=== PATIENT | male | born 1935 | race Caucasian/White ===

== ENCOUNTER 2019-05-31 10:38 | Emergency (ER) | payer OTHER, BC ==
[2019-05-31] MEDS ORDERED: MORPHINE 4 MG/ML SYR ONE (11:02)
[2019-05-31] MEDS ORDERED: ONDANSETRON 4 MG/2 ML VIAL ONE (11:02)
--- NOTE | 2019-05-31 11:06 | RAD REPORT ---
EXAM DESCRIPTION: RAD - Chest Single View - 05/31/2019 11:00 am CLINICAL HISTORY: CHEST PAIN Chest pain. COMPARISON: CHEST SINGLE VIEW dated 10/29/2010; CHEST PA AND LAT 2 VIEW dated 11/27/2009 FINDINGS: Portable technique limits examination quality. The lungs are mildly emphysematous but grossly clear. The heart is normal in size. No displaced fract ures. IMPRESSION: Mild COPD.
[2019-05-31 11:44] LABS: Protime INR 1.05
[2019-05-31 11:45] LABS: Absolute Lymphocytes (CBC) 1.6 K/uL (0.7-4.9); Basophils % 2.4 % (0-1.3); Hematocrit 49.3 % (39.6-49.0); Lymphocytes % 20.8 % (15.3-44.8)
[2019-05-31 12:04] LABS: ALT/SGPT 27 U/L (12-78); AST/SGOT 26 U/L (15-37); Albumin 3.7 g/dL (3.4-5.0); Alkaline Phosphatase 116 U/L (45-117); BUN Blood Urea Nitrogen 21 mg/dL (7-18); Bicarbonate 25 mmol/L (21-32); Bilirubin Direct 0.2 mg/dL (0-0.2); Bilirubin Total 0.5 mg/dL (0.2-1.0); Glucose Level 115 mg/dL (74-106); NT PRO-BNP 73 pg/mL (<450); Potassium 4.1 mmol/L (3.5-5.1); Protein, Total 7.5 g/dL (6.4-8.2); Sodium Level 141 mmol/L (136-145); Troponin (Emerg Dept Use Only) < 0.02 ng/mL (0.0-0.045)
--- NOTE | 2019-05-31 13:29 | ER ---
Nurse's Notes [facility] Name: Leanna Judge Age: 83 yrs Sex: Male : 1935 Arrival Date: 05/31/2019 Time: 10:40 Bed 6 Private MD: Evangelista Graham Diagnosis: Atrioventricular block, second degree;Unstable angina Presentation: 05/31 10:42 Presenting complaint: Patient states: pain to right scapular area that began 4-5 days aa5 ago. Pt reports mild SOB. Denies cough. Pt states "the pain also comes from my abdomen up to the right side of my chest and to the right side of my back (scapular area)". 10:42 Transition of care: patient was not received from another setting of care. Onset of aa5 symptoms was May 2019. Risk Assessment: Do you want to hurt yourself or someone else? Patient reports no desire to harm self or others. Care prior to arrival: None. 10:42 Acuity: GRACIE 2 aa5 10:42 Method Of Arrival: Wheelchair aa5 11:20 Initial Sepsis Screen: Does the patient meet any 2 criteria? No. Patient's initial mg2 sepsis screen is negative. Does the patient have a suspected source of infection? No. Patient's initial sepsis screen is negative. Historical: - Allergies: 11:04 No Known Allergies; hb - Home Meds: 10:50 clopidogrel 75 mg oral tab once daily [Active]; simvastatin 40 mg Oral tab 1 tab once iw daily [Active]; valsartan 160 mg oral tab 1 tab once daily [Active]; gabapentin 100 mg oral cap 3 times per day [Active]; allopurinol 100 mg Oral tab 1 tab once daily [Active]; aspirin 325 mg Oral tab 1 tab once daily [Active]; nitroglycerin 0.4 mg SL subl 1 tab every 5 minutes [Active]; - PMHx: 11:04 Hyperlipidemia; Gout; hb - Immunization history:: Flu vaccine status is unknown. - Ebola Screening: : No symptoms or risks identified at this time. - Social history:: Smoking status: unknown. Screenin:20 Abuse screen: Denies threats or abuse. Denies injuries from another. Nutritional mg2 screening: No deficits noted. Tuberculosis screening: No symptoms or risk factors identified. Fall Risk IV access (20 points). Assessment: 11:17 General: Appears in no apparent distress. comfortable, Behavior is calm, cooperative. mg2 Pain: Complains of pain in abdomen Pain radiates to chest Pain currently is 6 out of 10 on a pain scale. Quality of pain is described as aching, Pain began 2-3 days ago. Is intermittent. Neuro: Level of Consciousness is awake, alert, Oriented to person, place, time, situation. Cardiovascular: Capillary refill < 3 seconds Patient's skin is warm and dry. Respiratory: Airway is patent Respiratory effort is even, unlabored, Respiratory pattern is regular, symmetrical. GI: Abdomen is flat, Reports lower abdominal pain. : No signs and/or symptoms were reported regarding the genitourinary system. EENT: No signs and/or symptoms were reported regarding the EENT system. Derm: Skin is intact, is healthy with good turgor, Skin is pink, warm \\T\\ dry. normal. 12:15 Reassessment: Patient appears in no apparent distress at this time. Patient and/or hb family updated on plan of care and expected duration. Pain level reassessed. Patient is alert, oriented x 3, equal unlabored respirations, skin warm/dry/pink. 13:30 Reassessment: Patient appears in no apparent distress at this time. Patient and/or mg2 family updated on plan of care and expected duration. Pain level reassessed. Patient is alert, oriented x 3, equal unlabored respirations, skin warm/dry/pink. 14:30 Reassessment: Patient appears in no apparent distress at this time. Patient and/or hb family updated on plan of care and expected duration. Pain level reassessed. Patient is alert, oriented x 3, equal unlabored respirations, skin warm/dry/pink. 14:58 Reassessment: Attempted to call report tro Be, receiving nurse unavailable at this time. 15:30 Reassessment: Patient appears in no apparent distress at this time. Patient and/or hb family updated on plan of care and expected duration. Pain level reassessed. Patient is alert, oriented x 3, equal unlabored respirations, skin warm/dry/pink. Patient denies pain at this time. 15:32 Reassessment: Report called to Tosha GOLD at [facility]. Vital Signs: 10:45 Pulse 40; Resp 18 S; Pulse Ox 98% on R/A; aa5 11:07 BP 150 / 58; Temp 97.6(TE); Weight 102.51 kg; Height 5 ft. 8 in. (172.72 cm); mg2 11:58 BP 149 / 55; Pulse 41; Resp 18; Pulse Ox 97% on 3 lpm NC; mg2 13:00 BP 152 / 53; Pulse 46; Resp 18; Pulse Ox 96% on 3 lpm NC; mg2 14:30 BP 140 / 61; Pulse 39; Resp 16; Pulse Ox 100% on R/A; Pain 0/10; hb 15:00 BP 145 / 63; Pulse 54; Resp 15; Pulse Ox 100% on R/A; hb 11:07 Body Mass Index 34.36 (102.51 kg, 172.72 cm) mg2 ED Course: 10:40 Patient arrived in ED. ag5 10:41 Supa Graham MD is Private Physician. ag5 10:41 Evangelista Graham MD is Private Physician. ag5 10:42 Arm band placed on Patient placed in an exam room, on a stretcher. aa5 10:42 Patient has correct armband on for positive identification. Placed in gown. Bed in low aa5 position. Call light in reach. Side rails up X2. 10:43 Brian Bagley MD is Attending Physician. tw4 10:45 conveyor monitor on. Pulse ox on. NIBP on. aa5 10:49 EKG done, by ED staff, reviewed by Brian Bagley MD. aa5 10:51 Triage completed. aa5 11:03 XRAY Chest (1 view) In Process Unspecified. EDMS 11:11 XRAY Chest (1 view) In Process Unspecified. EDMS 11:20 No provider procedures requiring assistance completed. Inserted saline lock: 20 gauge mg2 in left forearm, using aseptic technique. Blood collected. 11:38 Lisa Cm, ASIF is Primary Nurse. hb 13:07 attempted transfer to [facility]. bd Administered Medications: 11:03 Drug: morphine 4 mg Route: IVP; Site: left forearm; hb 11:57 Follow up: Response: No adverse reaction mg2 11:03 Drug: Zofran 4 mg Route: IVP; Site: left forearm; hb 11:57 Follow up: Response: No adverse reaction mg2 Outcome: 13:27 ER care complete, transfer ordered by . tw4 16:07 Patient left the ED. Signatures: Dispatcher [employer] EDMS Jacki Rosa Irene, RN RN iw Ivana Thomas RN RN aa5 Lisa Cm RN RN Brian Bagley MD MD tw4 Foster Esteves RN RN [facility] Dennis Cevallos ag5 Corrections: (The following items were deleted from the chart) 10:52 10:45 Resp 18bpm; Spontaneous; Pulse Ox 98% RA; aa5 aa5
--- NOTE | 2019-05-31 13:30 | EDPHYS ---
Physician Documentation [facility] Name: Leanna Judge Age: 83 yrs Sex: Male : 1935 Arrival Date: 05/31/2019 Time: 10:40 Bed 6 Private MD: Evangelista Graham ED Physician Brian Bagley HPI: 05/31 11:45 This 83 yrs old Male presents to ER via Wheelchair with complaints of Cardiac tw4 Problem, chest pain. 11:45 The patient or guardian reports chest pain that is located primarily in the anterior tw4 chest wall, right. Onset: 2 day(s) ago. The pain does not radiate. Associated signs and symptoms: Pertinent positives: shortness of breath. The chest pain is described as a heaviness. Duration: The patient or guardian reports a single episode. Severity of pain: At its worst the pain was moderate in the emergency department the pain is unchanged. Historical: - Allergies: 11:04 No Known Allergies; hb - Home Meds: 10:50 clopidogrel 75 mg oral tab once daily [Active]; simvastatin 40 mg Oral tab 1 tab once iw daily [Active]; valsartan 160 mg oral tab 1 tab once daily [Active]; gabapentin 100 mg oral cap 3 times per day [Active]; allopurinol 100 mg Oral tab 1 tab once daily [Active]; aspirin 325 mg Oral tab 1 tab once daily [Active]; nitroglycerin 0.4 mg SL subl 1 tab every 5 minutes [Active]; - PMHx: 11:04 Hyperlipidemia; Gout; hb - Immunization history:: Flu vaccine status is unknown. - Ebola Screening: : No symptoms or risks identified at this time. - Social history:: Smoking status: unknown. ROS: 11:45 Constitutional: Negative for fever, chills, and weight loss. tw4 11:45 Respiratory: Negative for shortness of breath, cough, wheezing, and pleuritic chest pain, Back: Negative for injury and pain, MS/Extremity: Negative for injury and deformity, Skin: Negative for injury, rash, and discoloration, Neuro: Negative for headache, weakness, numbness, tingling, and seizure. 11:45 Cardiovascular: Positive for chest pain, Negative for edema, orthopnea, palpitations. Exam: 11:45 Constitutional: This is a well developed, well nourished patient who is awake, alert, tw4 and in no acute distress. Head/Face: Normocephalic, atraumatic. Chest/axilla: Normal chest wall appearance and motion. Nontender with no deformity. No lesions are appreciated. Cardiovascular: Regular rate and rhythm with a normal S1 and S2. No gallops, murmurs, or rubs. Normal PMI, no JVD. No pulse deficits. Respiratory: Lungs have equal breath sounds bilaterally, clear to auscultation and percussion. No rales, rhonchi or wheezes noted. No increased work of breathing, no retractions or nasal flaring. Abdomen/GI: Soft, non-tender, with normal bowel sounds. No distension or tympany. No guarding or rebound. No evidence of tenderness throughout. Back: No spinal tenderness. No costovertebral tenderness. Full range of motion. MS/ Extremity: Pulses equal, no cyanosis. Neurovascular intact. Full, normal range of motion. Neuro: Awake and alert, GCS 15, oriented to person, place, time, and situation. Cranial nerves II-XII grossly intact. Motor strength 5/5 in all extremities. Sensory grossly intact. Cerebellar exam normal. Normal gait. Vital Signs: 10:45 Pulse 40; Resp 18 S; Pulse Ox 98% on R/A; aa5 11:07 BP 150 / 58; Temp 97.6(TE); Weight 102.51 kg; Height 5 ft. 8 in. (172.72 cm); mg2 11:58 BP 149 / 55; Pulse 41; Resp 18; Pulse Ox 97% on 3 lpm NC; mg2 13:00 BP 152 / 53; Pulse 46; Resp 18; Pulse Ox 96% on 3 lpm NC; mg2 14:30 BP 140 / 61; Pulse 39; Resp 16; Pulse Ox 100% on R/A; Pain 0/10; hb 15:00 BP 145 / 63; Pulse 54; Resp 15; Pulse Ox 100% on R/A; hb 11:07 Body Mass Index 34.36 (102.51 kg, 172.72 cm) mg2 MDM: 10:53 Patient medically screened. tw4 21:45 Differential diagnosis: abnormal EKG, acute myocardial infarction, acute pericarditis, tw4 coronary artery disease pulmonary embolus, stable angina, unstable angina. HEART Score: History: Highly Suspicious (2), ECG: Non specific repolarization disturbance / LBTB / PM (1), Age: > or = 65 years (2), Risk Factors: > or = 3 Risk factors for atherosclerotic disease (2), Troponin: < or = 1 x Normal Limit (0), Total Score = 7. Data reviewed: vital signs, nurses notes. Data interpreted: adolescent specialist: rate is 45 beats/min, rhythm is sinus bradycardia, Pulse oximetry: Interpretation: normal. Test interpretation: by ED physician or midlevel provider: ECG, plain radiologic studies. Counseling: I had a detailed discussion with the patient and/or guardian regarding: the historical points, exam findings, and any diagnostic results supporting the discharge/admit diagnosis, lab results, radiology results. Physician consultation: Eric Hernadez MD after a discussion of the case, a recommendation for transfer for higher level of care is made, D/W Dr Mott from [facility] who agrees to take patient for higher level of care. 05/31 10:44 Order name: Basic Metabolic Panel 05/31 10:44 Order name: CBC with Diff 05/31 10:44 Order name: LFT's 05/31 10:44 Order name: Magnesium 05/31 10:44 Order name: NT PRO-BNP 05/31 10:44 Order name: PT-INR 05/31 10:44 Order name: Troponin (emerg Dept Use Only) 05/31 10:44 Order name: XRAY Chest (1 view) 05/31 10:44 Order name: EKG; Complete Time: 10:46 05/31 10:44 Order name: Cardiac monitoring; Complete Time: 11:06 05/31 10:44 Order name: EKG - Nurse/Tech; Complete Time: 11:06 05/31 10:44 Order name: IV Saline Lock; Complete Time: 11:06 05/31 10:44 Order name: Labs collected and sent; Complete Time: 11:06 05/31 10:44 Order name: O2 Per Protocol; Complete Time: 11:06 05/31 10:44 Order name: O2 Sat Monitoring; Complete Time: 11:06 EC:45 Rate is 37 beats/min. Rhythm is regular. QRS [place] is Normal. ND interval is prolonged. tw4 QRS interval is normal. QT interval is normal. No Q waves. T waves are Normal. No ST changes noted. Clinical impression: Sinus bradycardia. Interpreted by me. Reviewed by me. Administered Medications: 11:03 Drug: morphine 4 mg Route: IVP; Site: left forearm; hb 11:57 Follow up: Response: No adverse reaction mg2 11:03 Drug: Zofran 4 mg Route: IVP; Site: left forearm; hb 11:57 Follow up: Response: No adverse reaction mg2 Disposition: 05/31/19 13:27 Transfer ordered to [facility]. Diagnosis are Atrioventricular block, second degree, Unstable angina. - Reason for transfer: Higher level of care. - Accepting physician is Dr Parul Vu. - Condition is Stable. - Problem is an ongoing problem. - Symptoms are unchanged. Signatures: Dispatcher [employer] EDEcho Leon, ASIF RN Ivana Thomas RN RN aa5 Lisa Cm RN RN Brian Bagley MD MD tw4 Foster Esteves RN RN mg2 Corrections: (The following items were deleted from the chart) 16:07 13:27 05/31/2019 13:27 Transfer ordered to [facility]. Diagnosis is hb Atrioventricular block, second degree; Unstable angina. Reason for transfer: Higher level of care. Accepting physician is Dr Parul Vu. Condition is Stable. Problem is an ongoing problem. Symptoms are unchanged. tw4
[2019-05-31 16:19] VITALS: TEMP 97.6
[2019-05-31 16:24] VITALS: O2SAT 100
[2019-05-31 16:25] VITALS: BP 145/63
--- NOTE | 2019-05-31 16:40 | EKG ---
Test Date: 2019-05-31 Test Time: 10:50:52 Power Plant Manager: AIDEN MEASUREMENT RESULTS: Intervals: Rate: 37 LA: 236 QRSD: 146 QT: 496 QTc: 389 Cammal: P: 53 LA: 236 QRS: -20 T: 47 INTERPRETIVE STATEMENTS: Marked sinus bradycardia with 1st degree AV block Right bundle branch block Abnormal ECG Compared to ECG 10/31/2010 05:51:58 First degree AV block now present Right bundle-branch block now present Sinus rhythm no longer present T-wave abnormality no longer present Electronically Signed On 05-31-19 16:39:54 COMMUNITY HEALTH COUNSELOR by Thai Breen
== END 2019-05-31 16:07 | disposition short-term general hospital (02) ==
LOC: ER 10:38
DX: I44.1 Atrioventricular block, second degree (principal); I20.0 Unstable angina; E78.5 Hyperlipidemia, unspecified
CPT/HCPCS: 93005; 85025; 80048; 36415; 83735; 85610; 80076; 84484; 83880; 71045; 96375; 96374; 99284; J2405

== ENCOUNTER 2020-01-18 06:15 | Day surgery (SDC) | payer OTHER, BC ==
[2020-01-13 12:03] LABS: Absolute Lymphocytes (CBC) 2.1 K/uL (0.7-4.9); Basophils % 0.3 % (0-1.3); Hematocrit 44.1 % (39.6-49.0); Lymphocytes % 32.4 % (15.3-44.8); MPV 8.8 fL (7.6-11.3); RBC Red Blood Cell Count 4.55 M/uL (4.33-5.43)
--- NOTE | 2020-01-13 12:42 | RAD REPORT ---
EXAM DESCRIPTION: Gino Lange And Jeyson (2 Views)01/13/2020 12:31 pm CLINICAL HISTORY: Hypertension/preop COMPARISON: May 2019 FINDINGS: The lungs are hyperaerated. The lungs appear clear of acute infiltrate. The heart is normal size. Pacemaker leads are place IMPRESSION: No acute abnormalities displayed
--- OUTSIDE RECORDS SUMMARY | 2020-01-18 06:21 | XMS REPORT | Clinical Summary ---
:1935 Author Organization [facility] Address [address] [place] [address] Care Team Providers Name Role Phone Asked, No Pcp Primary Care Provider Unavailable Allergies No Known Allergies Medications Medication Sig Dispensed Refills Start Date End Date Status simvastatin (ZOCOR) Take 40 mg 0 Active 40 MG tablet by mouth nightly. gabapentin Take 100 mg 0 Active (NEURONTIN) 100 mg by mouth 3 capsule (three) times a day. valsartan (DIOVAN) Take 160 mg 0 Active 160 MG tablet by mouth daily. allopurinol Take 100 mg 0 Active (ZYLOPRIM) 100 MG by mouth tablet daily. nitroglycerin Place 0.4 mg 0 Act miracle (NITROSTAT) 0.4 MG under the SL tablet tongue every 5 (five) minutes as needed for chest pain. clopidogrel Take 75 mg 0 Discont inued (PLAVIX) 75 mg by mouth 0 (Stop Taking at tablet daily. Discharge) aspirin 325 MG Take 325 mg 0 Dis continued tablet by mouth 0 (Stop Taki ng at daily. Discharge) aspirin (ECOTRIN) Take 1 30 tablet 0 06/02/2019 E xpired 81 MG enteric tablet (81 0 coated tablet mg total) by mouth daily for 30 days. Active Problems Problem Noted Date Cardiac arrhythmia 05/31/2019 Encounters Date Type Specialty Care Team Description 06/01/2019 Anesthesia Event Procedural Eliz Spence, Cardiology Jerry Mchugh MD 06/01/2019 Surgery Procedural Lilia Burton Insertion p acemaker Cardiology pulse generator [[id number] (CPT)] 05/31/2019 - Hospital Encounter Cardiology Tano Martin, 06/02/2019 05/31/2019 Intake Access after 01/17/2019 Family History Medical History Relation Name Comments Cancer Brother Cancer Brother Heart disease Mother Brain cancer Sister Relation Name Status Comments Brother Brother Mother Sister Social History Tobacco Use Types Packs/Day Years Used Date Never Smoker Alcohol Use Drinks/Week oz/Week Comments Never Alcohol Habits Answer Date Recorded How often do you have a drink containing alcohol? Never 05/31/2019 How many drinks containing alcohol do you have on a typical Not asked day when you are drinking? How often do you have six or more drinks on one occasion? No t asked Sex Assigned at Date Recorded Not on file Job Start Date Occupation Industry Not on file Not on file Not on file Travel History Travel Start Travel End No recent travel history available. Last Filed Vital Signs Vital Sign Reading Time Taken Comments Blood Pressure 130/71 06/02/2019 9:00 AM PLASTER MACHINE OPERATOR Pulse 66 06/02/2019 9:00 AM PLASTER MACHINE OPERATOR Temperature 35.9 C (96.7 F) 06/02/2019 9:00 AM PLASTER MACHINE OPERATOR Respiratory Rate 20 06/02/2019 9:00 AM PLASTER MACHINE OPERATOR Oxygen Saturation 96% 06/02/2019 9:00 AM PLASTER MACHINE OPERATOR Inhaled Oxygen Concentration - - Weight 100 kg (221 lb) 06/02/2019 4:58 AM PLASTER MACHINE OPERATOR Height 172.7 cm (5' 8") 05/31/2019 5:26 PM PLASTER MACHINE OPERATOR Body Mass Index 33.6 05/31/2019 5:26 PM PLASTER MACHINE OPERATOR Plan of Treatment Health Maintenance Due Date Last Done Comments SHINGLES VACCINES (#1) 1983 65+ PNEUMOCOCCAL VACCINE (1 of 2 - PCV13) 1998 INFLUENZA VACCINE 02/23/2020 Implants Implanted Type Area Retail Selling Floor Leader Device Shelf Model / Identifier Expiration Serial / Date Lot Accolade Mri Pacemaker - [id number] Cardiac Pacemaker N/A: B OSTON 03/24/2021 [id number] / Implanted: 06/01/2019 at [facility] (Quantity not on file) Gen erators N/A SCIENTIFIC- CRM [id number] / [id number] IngUPR-Online Mri Pacing Lead 52cm - [id number] Cardiac Pacing N/A: WALKER 04/29/2021 [id number] / Implanted: 06/01/2019 at [facility] (Quantity not on file) Rocio ds or N/A SCIENTIFIC- CRM [id number] / Electrodes or [id number] Accessories IngevZondle Mri Pacing Lead Is-1 Bipolar 59cm - [id number] Cardiac Pacing N/A: BOSTON 05/01/2021 [id number] / Implanted: 06/01/2019 at [facility] (Quantity not on file) Rocio ds or N/A SCIENTIFIC- CRM [id number] / Electrodes or [id number] Accessories Envlp Impl Crdvrtr Dfb Antbctrl Fully Resorb Lg Aigiss rx R - [id number] Cardiovascular N/A: MEDTRONIC [id number] / Implanted: 06/01/2019 at [facility] (Quantity not on file) Implants N/A / Procedures Procedure Name Priority Date/Time Associated Comments Diagnosis MANUAL DIFFERENTIAL Routine 06/02/2019 2:50 Resu lts for this AM PLASTER MACHINE OPERATOR procedure are i n the results section. ESTIMATED GFR Routine 06/02/2019 2:50 Results fo r this AM PLASTER MACHINE OPERATOR procedure are i n the results section. BASIC METABOLIC PANEL Routine 06/02/2019 2:50 Re sults for this AM PLASTER MACHINE OPERATOR procedure are i n the results section. CBC WITH PLATELET AND Routine 06/02/2019 2:50 Re sults for this DIFFERENTIAL AM PLASTER MACHINE OPERATOR procedure are i n the results section. XR CHEST 1 VW PORTABLE Routine 06/01/2019 7:12 R esults for this PM PLASTER MACHINE OPERATOR procedure are i n the results section. ECG PRE/POST OP Routine 06/01/2019 6:28 Results for this PM PLASTER MACHINE OPERATOR procedure are i n the results section. CV LEFT HEART CATH LV Routine 06/01/2019 5:30 Re sults for this GRAM WITH CORS PM PLASTER MACHINE OPERATOR procedure are in the results section. EP INSERTION PACEMAKER Routine 06/01/2019 5:30 R esults for this PULSE GENERATOR WITH PM PLASTER MACHINE OPERATOR procedu re are in EXISTING LEADS the results section. TYPE AND SCREEN STAT 06/01/2019 12:19 Results for this PM PLASTER MACHINE OPERATOR procedure are i n the results section. ESTIMATED GFR Routine 05/31/2019 9:30 Results fo r this PM PLASTER MACHINE OPERATOR procedure are i n the results section. THYROID STIMULATING Routine 05/31/2019 9:30 Resu lts for this HORMONE PM PLASTER MACHINE OPERATOR procedure are i n the results section. PHOSPHORUS LEVEL Routine 05/31/2019 9:30 Results for this PM PLASTER MACHINE OPERATOR procedure are i n the results section. MAGNESIUM LEVEL Routine 05/31/2019 9:30 Results for this PM PLASTER MACHINE OPERATOR procedure are i n the results section. COMPREHENSIVE METABOLIC Routine 05/31/2019 9:30 Results for this PANEL PM PLASTER MACHINE OPERATOR procedure are i n the results section. PARTIAL THROMBOPLASTIN Routine 05/31/2019 9:30 R esults for this TIME (PTT) PM PLASTER MACHINE OPERATOR procedure are i n the results section. PROTHROMBIN TIME WITH Routine 05/31/2019 9:30 Re sults for this INR PM PLASTER MACHINE OPERATOR procedure are i n the results section. TROPONIN Routine 05/31/2019 9:30 Results for this PM PLASTER MACHINE OPERATOR procedure are i n the results section. HC COMPLETE BLD COUNT Routine 05/31/2019 9:30 Re sults for this W/AUTO DIFF PM PLASTER MACHINE OPERATOR procedure are i n the results section. XR CHEST 1 VW PORTABLE Routine 05/31/2019 8:44 R esults for this PM PLASTER MACHINE OPERATOR procedure are i n the results section. ECG 12-LEAD STAT 05/31/2019 6:59 Results for this PM PLASTER MACHINE OPERATOR procedure are i n the results section. after 01/17/2019 Results Estimated GFR (06/02/2019 2:50 AM PLASTER MACHINE OPERATOR)Only the most recent of2 resultswithin the time period is included. Estimated GFR 46 (A) mL/min/1.73 [facility] Comment: m2 HOSPITAL Catergory Units Interpretation G1 >=90 Normal or high G2 60-89 Mildly decreased G3a 45-59 Mildly to moderately decreas ed G3b 30-44 Moderately to severely decre ased G4 15-29 Severely decreased G5 <15 Kidney failure The eGFR was calculated using the Chronic Kidney Disea se Epidemiology Collaboration (CKD-EPI) equation. Interpretation is based on recommendations of the National Kidney Foundation-Kidney Disease Outcomes Rosales lity Initiative (NKF-KDOQI) published in 2014. Specimen Plasma specimen Performing Organization Address City/State/Zipcode Phone Number [facility] DEPARTMENT OF PATHOLOGY AND [address] [place] [phone] GENOMIC MEDICINE [facility] [address] [place] [phone] Manual differential (06/02/2019 2:50 AM PLASTER MACHINE OPERATOR) Manual differential PERFORMED [facility] Neutrophils 68.0 39.0 - 69.0 % [facility] Lymphocytes 22.0 (L) 25.0 - 45.0 % [facility] Monocytes 8.0 0.0 - 10.0 % [facility] Eosinophils 2.0 0.0 - 5.0 % [facility] Basophils 0.0 0.0 - 1.0 % [facility] Metamyelocytes 0 % [facility] Promyelocytes 0 % [facility] Platelet slide review Anival adequate [facility] Specimen Performing Organization Address City/[facility] Phone Number [facility] DEPARTMENT OF PATHOLOGY AND [address] [place], [place] [address] [address] CBC with platelet and differential (06/02/2019 2:50 AM PLASTER MACHINE OPERATOR)Only the most recent of2 resultswithin the time period is included. Pathologist Sig nature WBC 10.19 4.50 - 11.00 k/uL [facility] RBC 4.88 4.40 - 6.00 m/uL [facility] HGB 15.5 14.0 - 18.0 g/dL [facility] HCT 47.3 41.0 - 51.0 % [facility] MCV 96.9 82.0 - 100.0 fL [facility] MCH 31.8 27.0 - 34.0 pg [facility] MCHC 32.8 31.0 - 37.0 g/dL [facility] RDW - SD 47.7 37.0 - 55.0 fL [facility] MPV 10.7 8.8 - 13.2 fL [facility] Platelet count 208 150 - 400 k/uL [facility] Nucleated RBC 0.00 /100 WBC [facility] Neutrophils 68.0 39.0 - 69.0 % [facility] Lymphocytes 22.0 (L) 25.0 - 45.0 % [facility] Monocytes 8.0 0.0 - 10.0 % [facility] Eosinophils 2.0 0.0 - 5.0 % [facility] Basophils 0.0 0.0 - 1.0 % [facility] Specimen Blood Performing Organization Address City/State/Zipcode Phone Number [facility] DEPARTMENT OF PATHOLOGY AND [address] [place], [place] [address] [facility] [address] [place] [address] Basic metabolic panel (06/02/2019 2:50 AM PLASTER MACHINE OPERATOR) Pathologist Sig nature Sodium 139 135 - 148 mEq/L [facility] Potassium 3.9 3.5 - 5.0 mEq/L [facility] Chloride 102 98 - 112 mEq/L [facility] CO2 24 24 - 31 mEq/L [facility] Anion gap 13@ANIO 7 - 15 mEq/L [facility] BUN 18 8 - 23 mg/dL [facility] Creatinine 1.37 (H) 0.70 - 1.20 mg/dL [facility] Glucose 126 (H) 65 - 99 mg/dL [facility] Calcium 8.9 8.8 - 10.2 mg/dL [facility] Specimen Plasma specimen Performing Organization Address [facility] Hospital[facility] Phone Number [facility] DEPARTMENT OF PATHOLOGY AND [address] [place], [place] [address] GENOMIC MEDICINE [facility] [address] [place] [address] XR Chest 1 Vw Portable (06/01/2019 7:12 PM PLASTER MACHINE OPERATOR)Only the most recent of2 results within the time period is included. Specimen Narrative Performed At EXAMINATION: [facility] pneumothorax COMPARISON: 05/31/2019 IMPRESSION: A frontal radiograph of the chest is reviewed. The car diomediastinal silhouette is unchanged. There has been interval place ment of a left subclavian dual-lead pacemaking device. There is no pn eumothorax. Atelectasis is present in the lung bases . There is no pleural effusion. [facility]-[id number] Procedure Note Interface, Radiology Results Incoming - 06/01/2019 7:46 PM PLASTER MACHINE OPERATOR EXAMINATION: XR CHEST 1 VW PORTABLE CLINICAL HISTORY: pneumothorax COMPARISON: 05/31/2019 IMPRESSION: A frontal radiograph of the chest is rev iewed. The cardiomediastinal silhouette is unchanged. There has been interval placement of a left subclavian dual-lead pacemaking device. There is no pneumothorax. Atelectasis is present in the lung bases . There is no pleural effusion. [facility]-[id number] Performing Organization Address City/[facility] Hospital[facility] Phone Number [facility] [address] [place] [address] ECG Pre/Post Op-Tomorrow (06/01/2019 6:28 PM PLASTER MACHINE OPERATOR) Pathologist Sig nature Ventricular rate 61 [facility] Atrial rate 61 [facility] ND interval 178 [facility] QRSD interval 206 [facility] QT interval 550 [facility] QTC interval 553 [facility] P axis 1 29 [facility] QRS axis 1 -56 [facility]USE T wave axis 92 [facility] EKG impression Atrial-sensed ventricular-pa carlota rhythm-Abnormal ECG-In automated comparison with ECG of 31-MAY-2019 18:59,-Electronic ventricular pacemaker has replaced Sinus rhythm-Vent. rate has increased BY 24 BPM H MUSE - Specimen Narrative Performed At This result has an attachment that is no t available. Performing Organization Address [facility]/Zipcode Phone Number [facility] MUSE [address] [place] [address] Electrophysiology procedure (06/01/2019 5:30 PM PLASTER MACHINE OPERATOR) Pathologist Sig [facility] Cath EF Estimated 60 % [facility] Specimen Narrative Performed At This result has an attachment that is no t available. Left main normal. LAD with patent proximal stent. LCX normal. RCA dominant [facility] and normal. LVEF normal. No aortic valve disease. Iliac aortagram showed tortuous but no significant maris nosis. Performing Organization Address [facility] Hospital[facility] Phone Number [facility] [address] [place] [phone], [place] microbiology lab analyst procedure (06/01/2019 5:30 PM PLASTER MACHINE OPERATOR) Specimen Narrative Performed At This result has an attachment that is no t available. Left main normal. LAD with patent proximal stent. LCX normal. RCA dominant [facility] and normal. LVEF normal. No aortic valve disease. Iliac aortagram showed tortuous but no significant maris nosis. Performing Organization Address [facility] Hospital[facility] Phone Number [facility] [address] [place] [address], Type and screen (06/01/2019 12:19 PM PLASTER MACHINE OPERATOR) Pathologist [facility] ABO grouping A [facility] Rh type NEG [facility] Antibody screen (gel) NEG [facility] Specimen Blood Performing Organization Address City/[facility]/Zipcode Phone Number [facility] DEPARTMENT OF PATHOLOGY AND [address] [place] [phone] GENOMIC MED[address]INE [address] [address] Troponin (05/31/2019 9:30 PM PLASTER MACHINE OPERATOR) Troponin 0.008 0.000 - 0.040 [facility] Comment: ng/mL HOSPITAL In patients suspected of having a myocardial infarctio n, along with all other appropriate clinical measures and actions includ ing ECG and other diagnostics as appropriate, measure Ultra TnI at 0 hrs and at 3 hrs. Myocardial infarction VERY LIKELY The 0 hr TnI level is > 0.10 ng/mL Myocardial infarction LIKELY The 0 hr TnI level is > 0.04 ng/mL and 3 hr level is i ncreased or decreased by at least 0.020 ng/mL Myocardial infarction VERY UNLIKELY Both the 0 hr and 3 hr TnI levels <= 0.04 ng/mL(within normal limits) OR 0 hr is > 0.04 ng/mL and 3 hr is increased OR decreased by less than 0.020 ng/mL Specimen Plasma specimen Performing Organization Address City/[facility]/Zipcode Phone Number [facility] DEPARTMENT OF PATHOLOGY AND [address] [place], [place] [address] [address] Partial thromboplastin time, activated (05/31/2019 9:30 PM PLASTER MACHINE OPERATOR) [facility] PTT 28.8 23.0 - 36.0 [facility] Comment: [facility] PTT therapeutic range for unfractionated heparin is 61.0-112.0 seconds which corresponds to Anti-Xa 0.3-0.7 U/ml. Specimen Blood Performing Organization Address City/State/Zipcode Phone Number [facility] DEPARTMENT OF PATHOLOGY AND [address] [place], [place] [address] [address] Prothrombin time with INR (05/31/2019 9:30 PM PLASTER MACHINE OPERATOR) [facility] Prothrombin time 14.2 11.5 - 14.5 [facility] INR 1.1 [facility] Comment: UATSDIN The International Normalized Ratio (INR) is a [facility] monitoring tool for patients who are stable on oral anticoagulant therapy. An INR of 2.0-3.0 is suggested for deep vein thrombosis/pulmonary embolism. Specimen Blood Performing Organization Address [facility] Hospitalcomi Phone Number [facility] DEPARTMENT OF PATHOLOGY AND [address] [place] [address] [place] [phone] Thyroid stimulating hormone (05/31/2019 9:30 PM PLASTER MACHINE OPERATOR) Pathologist Sig nature TSH 4.05 0.27 - 4.20 uIU/mL [facility] ITAL Specimen Plasma specimen Performing Organization Address [facility] Phone Number [facility] DEPARTMENT OF PATHOLOGY AND [address] [place] [address] [place] [address] Phosphorus level (05/31/2019 9:30 PM PLASTER MACHINE OPERATOR) Pathologist Sig [facility] Phosphorus 2.9 2.4 - 4.5 mg/dL [facility] L Specimen Plasma specimen Performing Organization Address [facility] Phone Number [facility] DEPARTMENT OF PATHOLOGY AND [address] [place] [address] [phone] [address] Magnesium level (05/31/2019 9:30 PM PLASTER MACHINE OPERATOR) Pathologist Sig nature Magnesium 2.0 1.6 - 2.4 mg/dL [facility] L Specimen Plasma specimen Performing Organization Address [facility] Phone Number [facility] DEPARTMENT OF PATHOLOGY AND [address] [place] [phone] [place] [phone] Comprehensive metabolic panel (05/31/2019 9:30 PM PLASTER MACHINE OPERATOR) Sodium 142 135 - 148 [facility] mEq/L [facility] Potassium 4.1 3.5 - 5.0 [facility] mEq/L [facility] Chloride 103 98 - 112 mEq/L [facility] CO2 24 24 - 31 mEq/L [facility] Anion gap 15@ANIO 7 - 15 mEq/L [facility] BUN 20 8 - 23 mg/dL [facility] Creatinine 1.38 (H) 0.70 - 1.20 GARCIA UATSDIN mg/dL HOSPITAL Glucose 125 (H) 65 - 99 mg/dL [facility] Calcium 9.7 8.8 - 10.2 [facility] mg/dL [facility] Protein 7.6 6.3 - 8.3 g/dL [facility] Comment: HOSPITAL Otvdjeu3208.6-7.0 g/dL 1 kzgc2057.4-7.6 g/dL 7 months-7gaxc539.1-7.3 g/dL 1-2 jguak941.6-7.5 g/dL >3 smwcu062.0-8.0 g/dL 18-2879921.3-8.3 g/dL Albumin 3.8 3.5 - 5.0 g/dL [facility] A/G ratio 1.0 0.7 - 3.8 [facility] Alkaline phosphatase 116 40 - 129 U/L [facility] AST 32 10 - 50 U/L [facility] ALT 24 5 - 50 U/L [facility] Total bilirubin 0.6 0.0 - 1.2 [facility] mg/dL HOSPITAL Specimen Plasma specimen Performing Organization Address City/State/Zipcode Phone Number [facility] DEPARTMENT OF PATHOLOGY AND [address] [place] [phone] GENOMIC MEDICINE [address] [address] ECG 12 lead (05/31/2019 6:59 PM PLASTER MACHINE OPERATOR) Pathologist Sig nature Ventricular rate 37 [facility] Atrial rate 61 [facility] QRSD interval 142 [facility] QT interval 518 [facility] QTC interval 406 [facility] QRS axis 1 1 [facility] T wave axis 35 [facility] EKG impression Sinus rhythm with 2nd [facility] MUSE degree AV block (Mobitz I)-Right bundle branch block-Abnormal ECG-No previous ECGs available-Electronicall y Signed By Kaden EPPS, Nito Medina ([id number]) on 06/01/2019 8:46:08 AM Specimen Narrative Performed At This result has an attachment that is no t available. Performing Organization Address City/State/Zipcode Phone Number [facility] [address] [place] [address] after 01/17/2019 Insurance Payer Benefit Plan / Subscriber ID Effective Dates Phone Addre ss Type Group MEDICARE MEDICARE PART A xxxxxxxxxxx 1998-Present [facility] [place] AND B BCBS BCBS CHOICE xxxxxxxxx 2007-Present P PO PPO/F[employer]ERAL EMPL PPO Advance Directives For more information, please contact: [phone] Type Date Recorded Patient Wool Supplier Explanati on Advance Directives, Living Will and Medical Power of Machine Tool Dresser Code Status Date Activated Date Inactivated Comments Full Code 05/31/2019 9:04 PM 06/02/2019 4:41 PM Code Status decision reached by: Patient
--- OUTSIDE RECORDS SUMMARY | 2020-01-18 06:22 | XMS REPORT | Continuity of Care Document ---
:1935 Author Organization [facility] t Address [address] [place] [address] Care Team Providers Name Role Phone Asked, Pcp Primary Care Physician Unavailable Andreia EPPS FCee Attending Clinician Brianna Spence MD Attending Clinician Jose A EPPS V. Attending Clinician Josephine EPPS Attending Clinician ANDREIA Admitting Clinician Unavailable Payers Payer Name Policy Policy Number Effective Expiration Source Type Date Date MEDICAREMEDICARE PART xxxxxxxxxxx 1998 Ho liudmila Cowart AND 00:00:00 [facility]05[facility] [place] [place] [facility] 2007 [place] PPO/FEDERAL EMPL 00:00:00 Methodis t PPOxxxxxxxxx2007- [id number] Problems Condition Condition Condition Status Onset Resolution Last Treating Co mments Source Name Details Category Date Date Treatment Clinician Date Cardiac Cardiac Disease Active [place] arrhythmia arrhythmia 05-31 [place] thodi 00:00: st 00 Allergies, Adverse Reactions, Alerts This patient has no known allergies or adverse reactions. Family History Family Member Diagnosis Comments Start Date Stop Date Source Natural brother Cancer [facility] timothy Natural mother Heart disease [place] [facility] Natural sister Brain cancer [facility] Social History Social Habit Start Date Stop Date Quantity Comments Source History [facility] Meth odist Alcohol Std Drinks History [facility] Meth odist Alcohol Binge Sex Assigned At [facility] ethodist Alcohol intake 2019-06-03 2019-06-03 Lifetime [facility] thodist 00:00:00 00:00:00 non-drinker (finding) History SDOH 2019-05-31 2019-05-31 1 [place] [facility] odist Alcohol Frequency 00:00:00 00:00:00 Smoking Status Start Date Stop Date Source Never smoker [place] Methodis t Medications Ordered Filled Start Stop Current Ordering Indication Dosage Frequency Signature Comments Components Source Medication Medication Date Date Medication? Clinician (SIG) Name Name clopidogrel 2019-0 2020- No 75mg QD Take 75 mg [place] (PLAVIX) 75 06-02 by mouth Met hodi mg tablet 12:41: 00:[address] 50 :00 aspirin 325 2020-0 2020- No 325mg QD Take 325 [place] MG tablet 06-02 mg by Methodi 12:41: 00:[address] 50 :00 daily. simvastatin 2020-0 Yes 40mg QD Take 40 mg [place] (ZOCOR) 40 06-02 by mouth Metho di MG tablet 12:41: nightly. st 47 gabapentin 2020-0 Yes 100mg [id number] Take 100 [place] (NEURONTIN) 06-02 [id number] mg by M ethodi 100 mg 12:41: 3D mouth 3 st capsule 47 (three) times a day. valsartan 2020-0 Yes 160mg QD Take 160 Rafael ston (DIOVAN) 1-09 mg by Methodi 160 MG 12:41: mouth st tablet 47 daily. allopurinol 2020-0 Yes 100mg QD Take 100 [place] (ZYLOPRIM) 1-09 mg by Methodi 100 MG 12:41: mouth st tablet 47 daily. nitroglycer 2020-[address] 0.4 [place] in 1-09 mg under Methodi (NITROSTAT) 12:41: the tongue st 0.4 MG SL 47 every 5 tablet (five) minutes as needed for chest pain. aspirin 2020-0 2020- No 81mg QD Take 1 [place] (ECOTRIN) 06-02 tablet (81 Met hodi 81 MG 00:00: 23:59 mg total) st enteric 00 :00 by mouth coated daily for tablet 30 days. Vital Signs Vital Name Observation Time Observation Value Comments Source Systolic blood 2019-06-02 09:00:00 130 mm[Hg] Cabrera n [facility] pressure Diastolic blood 2019-06-02 09:00:00 71 mm[Hg] Izzy on [facility] pressure Heart rate 2019-06-02 09:00:00 66 /min Johnnie rL Body temperature 2019-06-02 09:00:00 35.94 Hannah Tino Lr Respiratory rate 2019-06-02 09:00:00 20 /min Tino Lr Oxygen saturation in 2019-06-02 09:00:00 96 /min Johnnie Lr Arterial blood by Pulse oximetry Body weight 2019-06-02 04:58:10 100.245 kg Johnnie Lr BMI 2019-06-02 04:58:10 33.60 kg/m2 Johnnie Lr Body height 2019-05-31 17:26:17 172.7 cm Johnnie Lr Procedures Procedure Date / Time Performing Clinician Source Performed CBC WITH PLATELET AND 2019-06-02 02:50:00 Natalia Germain DIFFERENTIAL BASIC METABOLIC PANEL 2019-06-02 02:50:00 Natalia Germain ESTIMATED GFR 2019-06-02 02:50:00 Natalia Germain MANUAL DIFFERENTIAL 2019-06-02 02:50:00 Natalia Germain XR CHEST 1 VW PORTABLE 2019-06-01 19:12:51 Parul Vu on [facility] ECG PRE/POST OP 2019-06-01 18:28:08 Parul Vu EP INSERTION PACEMAKER 2019-06-01 17:30:39 Parul Vu PULSE GENERATOR WITH EXISTING LEADS CV LEFT HEART CATH LV GRAM 2019-06-01 17:30:39 Parul Vu WITH CORS TYPE AND SCREEN 2019-06-01 12:19:00 Parul Vu HC COMPLETE BLD COUNT 2019-05-31 21:30:00 Mary Ann Schuster W/AUTO DIFF TROPONIN 2019-05-31 21:30:00 Mary Ann Schuster PROTHROMBIN TIME WITH INR 2019-05-31 21:30:00 Gina Martin PARTIAL THROMBOPLASTIN 2019-05-31 21:30:00 Gina Martin [facility] TIME (PTT) COMPREHENSIVE METABOLIC 2019-05-31 21:30:00 Gina Martin [facility] PANEL MAGNESIUM LEVEL 2019-05-31 21:30:00 Gina Martin Met chema PHOSPHORUS LEVEL 2019-05-31 21:30:00 Gina Martin Me thodist THYROID STIMULATING 2019-05-31 21:30:00 Gina Martin HORMONE ESTIMATED GFR 2019-05-31 21:30:00 Gina Martin Met chema XR CHEST 1 VW PORTABLE 2019-05-31 20:44:00 Mary Ann Schuster H gab Lr ECG 12-LEAD 2019-05-31 18:59:47 Mary Ann Schuster Plan of Care Planned Activity Planned Date Details Comments Source Future Scheduled 2020-02-23 INFLUENZA VACCINE [place] [facility] Test 00:00:00 [code = INFLUENZA VACCINE] Future Scheduled 1998 65+ PNEUMOCOCCAL [place] Test 00:00:00 VACCINE (1 of 2 - PCV13) [code = 65+ PNEUMOCOCCAL VACCINE (1 of 2 - PCV13)] Future Scheduled 1983 SHINGLES VACCINES (#1) H gab [facility] Test 00:00:00 [code = SHINGLES VACCINES (#1)] Encounters Start End Encounter Admission Attending Care Care Encounter Source Date/Time Date/Time Type Type Clinicians Facility Department ID 2019-05-31 2019-06-02 Inpatient ANDREIA [facility] [id number] [id number] [place] 00:00:00 00:00:00 GINA Yee Method i st Results Test Description Test Time Test Comments Results Result Comments Source ECG Pre/Post Op-Tomorrow 2019-06-02 20:54:15 Test Item Value Reference Range Interpretation Comme nts Ventricular rate (test code = 253) 61 Atrial rate (test code = 255) 61 WI interval (test code = 266) 178 QRSD interval (test code = 260) 206 QT interval (test code = 264) 550 QTC interval (test code = 265) 553 P axis 1 (test code = 267) 29 QRS axis 1 (test code = 268) -56 T wave axis (test code = 270) 92 EKG impression (test code = 273) Atrial-sensed ventricular-paced rhythm-Abnormal ECG-In automated comparison with ECG of 31-MAY-2019 18:59,-Electronic ventricular pacemaker has replaced Sinus rhythm-Vent. rate has increased BY 24 BPM- [place] MethodistCath lab [id number] 16:05:15Left main normal. LAD with patent proximal stent. LCX normal. RCA dominant and normal. LVEF normal. No aortic valve disease. Iliac aortagram showed tortuous but no significant stenosis.[place] MethodistElectrophysiology [id number] 16:05:14 Test Item Value Reference Range Interpretation Comments Cath EF Estimated 60 % (test code = 6716883806) CURT (test code = CURT) Left main normal. LAD with patent proximal stent. LCX normal. RCA dominant and normal. LVEF normal. No aortic valve disease. Iliac aortagram showed tortuous but no significant stenosis. [place] MethodistCBC with platelet and [id number] 09:47:12 Test Item Value Reference Range Interpretation Comments WBC (test code = 32870-6) 10.19 4.50- 11.00 k/uL RBC (test code = 75993-7) 4.88 m/uL 4.4-6 HGB (test code = 718-7) 15.5 g/dL 14-18 HCT (test code = 4544-3) 47.3 % 41-51 MCV (test code = 787-2) 96.9 fL 82-100 MCH (test code = 785-6) 31.8 pg 27-34 MCHC (test code = 786-4) 32.8 g/dL 31-37 RDW - SD (test code = 59654-4) 47.7 fL 37-55 MPV (test code = 48006-7) 10.7 fL 8.8-13.2 Platelet count (test code = 208 150- 400 k/uL 81103-0) Nucleated RBC (test code = 0.00 /100 WBC 50472-8) Neutrophils (test code = 81878-0) 68.0 % 39-69 Lymphocytes (test code = 06075-1) 22.0 % 25-45 L Monocytes (test code = 77254-7) 8.0 % 0-10 Eosinophils (test code = 92632-8) 2.0 % 0-5 Basophils (test code = 77619-1) 0.0 % 0-1 Lab Interpretation (test code = Abnormal 73499-3) [place] MethodistManual [id number] 09:47:12 Test Item Value Reference Range Interpretation Comments Manual differential (test code = PERFORMED 17412-4) Neutrophils (test code = 68.0 % 39-69 01830-9) Lymphocytes (test code = 22.0 % 25-45 L 97067-1) Monocytes (test code = 19429-4) 8.0 % 0-10 Eosinophils (test code = 2.0 % 0-5 42598-5) Basophils (test code = 74140-9) 0.0 % 0-1 Metamyelocytes (test code = 0 % 740-1) Promyelocytes (test code = 0 % 783-1) Platelet slide review (test code Anival adequate = 24791-4) Lab Interpretation (test code = Abnormal 90606-9) [place] MethodistBasic metabolic [id number] 04:41:31 Test Item Value Reference Range Interpretation Comments Sodium (test code = 2951-2) 139 135- 148 mEq/L Potassium (test code = 2823-3) 3.9 3.5- 5.0 mEq/L Chloride (test code = 2075-0) 102 98- 112 mEq/L CO2 (test code = 8-9) 24 24- 31 mEq/L Anion gap (test code = 76087-4) 13@ANIO 7- 15 mEq/L BUN (test code = 3094-0) 18 mg/dL 8-23 Creatinine (test code = 2160-0) 1.37 mg/dL 0.7-1.2 H Glucose (test code = 2345-7) 126 mg/dL 65-99 H Calcium (test code = 07364-9) 8.9 mg/dL 8.8-10.2 Lab Interpretation (test code = Abnormal 01249-5) [place] MethodistEstimated [id number] 04:41:30 Test Item Value Reference Range Interpretation Comments Estimated GFR (test 46 mL/min/1.73 m2 Supa willis Units code = 5488) InterpretationG 1 >=90 Maribel l or highG2 60-89 Mildly decrease dG3a 45-59 Mil dly to moderately decr jkjuzT9g 30-44 Moderately to s everely decreasedG4 15-29 Severe ly decreasedG5 <15 Kidney nina lureThe eGFR was calcul ated using the Chron ic Kidney Disease Epidemiology Collaboration ( CKD-EPI) equation. Interpretation is based on recommendati ons of the National [facility]-Kidn ey Disease Outcome s Quality Initiat miracle (NK-KDOQI) pub lished in 2013. Lab Interpretation Abnormal (test code = 06993-3) Johnnie MethodistXR Chest 1 Vw [id number] 19:43:18Hm Interface, Radiology Results Incoming - 06/01/2019 7:46 PM CSTEXAMINATION: XR CHEST 1 VW PORTABLECLINICAL HISTORY: pneumothoraxCOMPARISON: 05/31/2019IMPRESSION:A frontal radiograph of the chest isreviewed. The cardiomediastinal silhouette is unchanged. There has been interval placement of a leftsubclavian dual-lead pacemaking device. There is no pneumothorax. Atelectasis is present in the lung bases. There is no pleural effusion.[facility]-[id number] MethodistType and [id number] 13:29:00 Test Item Value Reference Range Interpretation Comments ABO grouping (test code = 883-9) A Rh type (test code = 08354-7) NEG Antibody screen (gel) (test code = NEG 890-4) [place] MethodistECG 12 [id number] 08:46:14 Test Item Value Reference Range Interpretation Comments Ventricular rate (test 37 code = 253) Atrial rate (test code = 61 255) QRSD interval (test code 142 = 260) QT interval (test code = 518 264) QTC interval (test code 406 = 265) QRS axis 1 (test code = 1 268) T wave axis (test code = 35 270) EKG impression (test Sinus rhythm with 2nd code = 273) degree AV block (Mobitz I)-Right bundle branch block-Abnormal ECG-No previous ECGs available-Electronica lly Signed By Nito Alfonso MD ([id number]) on 06/01/2019 8:46:08 AM Johnnie [id number] 22:26:15 Test Item Value Reference Range Interpretation Comments Troponin (test code 0.008 ng/mL 0-0.04 In patie nts suspected = 41401-0) of having a cj cardial infarction, kalli loree with all other appro priate clinical measur es and actions includi ng ECG and other diagn ostics as appropriate, measure Ultra TnI at 0 hrs and at 3 hrs.Myocar dial infarction VERY LIKELYThe 0 hr TnI level is > 0.10 ng/mL -------- -------- -------- --------Myocard ial infarction LIKE LYThe 0 hr TnI level is > 0.04 ng/mL and 3 hr level is increased or de creased by at least 0.0 20 ng/mL -------- -------- -------- ---Myocardial infarction VERY UNLIKELYBoth th e 0 hr and 3 hr TnI le vels <= 0.04 ng/mL(with in normal limits) OR 0 hr is > 0.04 ng/mL and 3 hr is increased OR decreased by le ss than 0.020 ng/mL Johnnie MethodistThyroid stimulating [id number] 22:21:10 Test Item Value Reference Range Interpretation Comments TSH (test code = 3016-3) 4.05 0.27- 4.20 uIU/mL [place] MethodistComprehensive metabolic [id number] 22:15:05 Test Item Value Reference Range Interpretation Comments Sodium (test code = 142 135- 148 mEq/L 2951-2) Potassium (test code = 4.1 3.5- 5.0 mEq/L 2823-3) Chloride (test code = 103 98- 112 mEq/L 2074-0) CO2 (test code = 2027-) 24 24- 31 mEq/L Anion gap (test code = 15@ANIO 7- 15 mEq/L 46595-5) BUN (test code = 3094-0) 20 mg/dL 8-23 Creatinine (test code = 1.38 mg/dL 0.7-1.2 H 2160-0) Glucose (test code = 125 mg/dL 65-99 H 2345-7) Calcium (test code = 9.7 mg/dL 8.8-10.2 94422-6) Protein (test code = 7.6 g/dL 6.3-8.3 [place] 9994.6-7.0 2885-2) g/dL1 zeyw1252.4-7.6 g/dL7 months-4munt295 .1- 7.3 g/dL1-2 .6-7.5 g/dL>3 .0-8.0 g/jA74-4902934. 3-8 .3 g/dL Albumin (test code = 3.8 g/dL 3.5-5 175-7) A/G ratio (test code = 1.0 0.7-3.8 1758-0) Alkaline phosphatase 116 U/L 40-129 (test code = 6768-6) AST (test code = 1920-8) 32 U/L 10-50 ALT (test code = 1742-6) 24 U/L 5-50 Total bilirubin (test 0.6 mg/dL 0-1.2 code = 1974-) Lab Interpretation (test Abnormal code = 44523-3) [place] MethodistMagnesium [id number] 22:15:05 Test Item Value Reference Range Interpretation Comments Magnesium (test code = 18566-9) 2.0 mg/dL 1.6-2.4 [place] MethodistPhosphorus [id number] 22:15:03 Test Item Value Reference Range Interpretation Comments Phosphorus (test code = 2777-1) 2.9 mg/dL 2.4-4.5 [place] MethodistPartial thromboplastin time, [id number] 21:53:28 Test Item Value Reference Range Interpretation Comments PTT (test code = 28.8 23.0- 36.0 [place] [address]-9) unfractionated heparin is61.0-112.0 se conds which corresponds to Anti-Xa0.3-0.7 U/ml. [place] MethodistProthrombin time with [id number] 21:52:44 Test Item Value Reference Range Interpretation Comments Prothrombin time (test 14.2 11.5- 14.5 sec code = 5902-2) INR (test code = 1.1 [facility]-6) Normalized Rati o (INR) is a therapeutic m onitoring tool for patien ts who are stable on oral anticoagulant t herapy. An INR of 2.0-3.0 is suggested for d eep vein thrombosis/pulm onary embolism. Johnnie Lr
[2020-01-18] MEDS ORDERED: Ringers Lactate 1,000 ML IV ONE (06:45)
[2020-01-18] MEDS ORDERED: LABETALOL 20 MG/4ML SYRINGE IV ONE (06:55)
[2020-01-18] MEDS ORDERED: MIDAZOLAM HCL 2 MG/2 ML INJ ONE (07:22)
[2020-01-18] MEDS ORDERED: FENTANYL CITR 100 MCG/2 ML ONE (07:22)
[2020-01-18] MEDS ORDERED: LIDOCAINE 1% MPF 5 ML VIAL ONE (07:22)
[2020-01-18] MEDS ORDERED: propofoL 200 MG/20 ML VIAL IV ONE (07:22)
[2020-01-18] MEDS ORDERED: CEFAZOLIN SODIUM 1 GM/VIAL ONE (07:42)
[2020-01-18] MEDS ORDERED: NS 0.9% VIAL 10 ML ONE (07:42)
[2020-01-18] MEDS ORDERED: dexAMETHasone 10 MG/ML VIAL ONE (08:10)
[2020-01-18] MEDS ORDERED: KETOROLAC 30 MG/ML INJ ONE (08:10)
[2020-01-18] MEDS ORDERED: ONDANSETRON 4 MG/2 ML VIAL ONE ×3 (08:11→11:00)
[2020-01-18] MEDS: MORPHINE 4 MG/ML SYR ONE ×3 (08:30→08:40)
--- NOTE | 2020-01-18 08:32 | P.BOP ---
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
[2020-01-18] MEDS: HYDROMORPHONE HCL 1 MG/ML INJ ONE ×4 (08:43→09:10)
[2020-01-18 09:06] VITALS: TEMP 97.1
[2020-01-18] MEDS ORDERED: CODEINE 30MG/APAP 300MG TAB ONE (10:20)
[2020-01-18 12:10] VITALS: BP 155/64; O2SAT 99
--- NOTE | 2020-02-01 10:33 | OP ---
Date of Procedure: 01/18/2020 Surgeon: Janak Shrestha MD Preoperative Diagnosis: Tender ulcerated forehead mass. Postoperative Diagnosis: Tender ulcerated forehead mass. Procedure: Wide excision of tender ulcerated forehead mass, 3 x 3 cm, with frozen section. Specimen: Mass. Anesthesia: General plus local. Findings: Frozen section shows multicellular fibrotic tumor. No cancer seen by Dr. Queen. Indications: This is a case of an 84-year-old patient, who comes to us with a lesion on the forehead . The benefits, alternatives, and risks of excision with frozen section were fully explained, which include, but not limited to infection, bleeding, damage to adjacent structures, anesthesia complicati on, recurrence, ME, and even . He also understands this may not relieve the symptoms. He might need more than one surgical intervention. He understood and signed a consent. Description Of Procedure: The area of concern was marked by me and the patient in the holding room. The patient was brought to the operating room, placed in supine position. Anesthesia was done witho ut complication. Forehead area was prepped and draped in sterile fashion. Local anesthesia was appl ied followed by sharp incision of the skin in a wedge fashion to include gross negative margins. The specimen was sent to the pathologist under frozen section while we were waiting, found to be a multi cellular fibrotic tumor, but at least at this moment, no cancer was seen. This will be sent for perm anent section. At that moment, then I proceeded to irrigate the area. We removed skin enough. It i s difficult to put together, so we used sutures in layers inside and outside, 3-0 chromic and nylon, to be able to approximate these flaps. The patient tolerated the procedure well. The area covered w ith sterile dressings. The patient was sent to recovery in stable condition. Disposition: Home. Activity: As tolerated. No heavy lifting. Medications: See orders. Discharge Instructions: Keep area dry for 48 hours, then may shower. The patient will be seen in my office in 1 week to discuss the final pathology. MARY/JORGE Voice ID: [id number] Report ID: [id number]
== END 2020-01-18 11:18 | disposition home or self-care (01) ==
LOC: OR 06:15
PROVIDERS: ATTEND Surgery
PROC: 0HB1XZZ Excision of Face Skin, External Approach (ICD-10-PCS; principal; 2020-01-18 07:30)
DX: C43.39 Malignant melanoma of other parts of face (principal); Z20.828 Contact with and (suspected) exposure to other viral communicable diseases; I10 Essential (primary) hypertension; M10.9 Gout, unspecified; E78.00 Pure hypercholesterolemia, unspecified; Z79.82 Long term (current) use of aspirin; Z79.899 Other long term (current) drug therapy; Z95.0 Presence of cardiac pacemaker
CPT/HCPCS: 93005; 85025; 80048; 36415; 88331; 88332; 88305; 71046; 11643; 12052; U0002; J2704; J3010; J1100; J1170 ×2; J7120; J2405 ×3; J0690; J2250

== ENCOUNTER 2020-02-10 10:32 | Day surgery (SDC) | payer OTHER, BC ==
--- OUTSIDE RECORDS SUMMARY | 2020-02-10 10:35 | XMS REPORT | Continuity of Care Document ---
:1935 Author Organization [facility] Address [address] [place] [address] Care Team Providers Name Role Phone ANDREIA Attending Clinician Unavailable ANDREIA Admitting Clinician Unavailable Problems This patient has no known problems. Allergies, Adverse Reactions, Alerts This patient has no known allergies or adverse reactions. Medications This patient has no known medications. Procedures This patient has no known procedures. Encounters Start End Encounter Admission Attending Care Care Encounter Source Date/Time Date/Time Type Type Clinicians Facility Department ID 2019-05-31 2019-06-02 Inpatient ANDREIA [facility] 060 [id number] [place] 00:00:00 00:00:00 GINA Yee Method i st Results This patient has no known results.
[2020-02-10] MEDS: Ringers Lactate 1,000 ML IV ONE ×2 (10:50→11:15)
[2020-02-10] MEDS: CEFAZOLIN/SWI 1gm 1 GM/10 ML SYR ONE ×2 (10:50→11:25)
[2020-02-10] MEDS ORDERED: BUPIVACAINE 0.5% PF 10 ML VIAL ONE (10:57)
[2020-02-10] MEDS ORDERED: BSS OPTHALMIC SOL 15 ML BOT OPTH ONE (11:11)
[2020-02-10] MEDS ORDERED: FENTANYL CITR 100 MCG/2 ML ONE (11:15)
[2020-02-10] MEDS ORDERED: propofoL 200 MG/20 ML VIAL IV ONE (11:15)
[2020-02-10] MEDS ORDERED: LIDOCAINE 2% MPF 5 ML VIAL ONE (11:16)
[2020-02-10] MEDS ORDERED: EPHEDRINE SULF 50 MG/ML VIAL ONE (11:16)
[2020-02-10] MEDS ORDERED: ONDANSETRON 4 MG/2 ML VIAL ONE (11:16)
[2020-02-10] MEDS ORDERED: Phenylephrine HCl 10 MG/ML 1 ML VIAL ONE (11:51)
[2020-02-10] MEDS ORDERED: LABETALOL 20 MG/4ML SYRINGE IV ONE (12:01)
--- NOTE | 2020-02-10 12:04 | P.BOP ---
Preoperative diagnosis: head/forehead invasive melanoma Postoperative diagnosis: same Primary procedure: Wide excision of forehead invasive melanoma Materials Planner/Production Planner: Leah Cuellar (Jenn) Specimen: invasive melanoma Findings: invasive melanoma Anesthesia: General Transferred to: Recovery Room Condition: Good
[2020-02-10] MEDS ORDERED: CODEINE 30MG/APAP 300MG TAB ONE (13:42)
[2020-02-10 16:17] VITALS: BP 104/81; TEMP 97; O2SAT 96
--- NOTE | 2020-02-10 21:59 | OP ---
Date of Procedure: 02/10/2020 Surgeon: Janak Shrestha MD Shake Cutter: Leah Cuellar. Preoperative Diagnosis: Forehead invasive melanoma. Postoperative Diagnosis: Forehead invasive melanoma. Procedure: Wide excision of forehead invasive melanoma. Findings: Invasive melanoma. Specimens: Wide excision. Anesthesia: General plus local. Indications: This is the case of a male, who comes to us with a lesion that initially was seen in fr ozen section as negative, but then after more studies of the lesion, they found to have melanoma, abo ut 7 mm and also invasive. He was explained the need for wide excision of that area. Since we have 7 mm, we are going to try to do a 2 cm margins over the area. The area was marked previously. The p atient understands the benefits, alternatives, and risks of excision, which include, but not limited to infection, bleeding, damage to adjacent structures, anesthesia complication, nonhealing wound, MN, and even . He also understands this may not relieve the symptoms. He might need more than one surgical intervention. He also understands because of how wide we have to go, we will not be able t o close this primarily, so he is going to have to heal by secondary intention and then when ready, mo st likely have a skin graft. He did agree. Description Of Procedure: The area of concern was previously marked by me and the patient in the hol ding room. The patient was brought to the operating room and placed in supine position. Anesthesia was done without complication. Forehead and head area were prepped and draped in sterile fashion. W e proceeded to ede from the area of incision 2 cm around the area and then proceeded to do the wide excision. This goes all the way down to bone. Since the area is thin, we have gone all the way down to galea. Area was excised, marked for orientation. Area was irrigated and then we packed the area with Shireen and then followed by dressings on top and under sterile dressings. The patient tolerate d the procedure well. The patient was sent to Recovery in stable condition. MARY/JORGE Voice ID: [id number] Report ID: [id number]
--- NOTE | 2020-02-10 21:59 | DS ---
Date of Discharge: 02/10/2020 Diagnosis: Invasive melanoma. Procedure: Wide excision of invasive melanoma. Disposition: Home. Keep dressings intact until he see [facility] Medications: Include Tylenol No. 3 q.4 hours p.r.n. pain. MARY/JORGE Voice ID: [id number] Report ID: [id number]
== END 2020-02-10 14:10 | disposition home or self-care (01) ==
LOC: OR 10:32
PROVIDERS: ATTEND Surgery
PROC: 0JB10ZZ Excision of Face Subcutaneous Tissue and Fascia, Open Approach (ICD-10-PCS; principal; 2020-02-10 12:30)
DX: C43.39 Malignant melanoma of other parts of face (principal); I10 Essential (primary) hypertension; E78.00 Pure hypercholesterolemia, unspecified; M10.9 Gout, unspecified; R00.1 Bradycardia, unspecified; Z95.0 Presence of cardiac pacemaker; Z20.828 Contact with and (suspected) exposure to other viral communicable diseases
CPT/HCPCS: 93005; 88305; 11642; U0002; J2704; J2370; J3010; J0690; J7120; J2405

== ENCOUNTER 2020-05-13 17:40 | Observation (INO) | payer OTHER, BC ==
--- OUTSIDE RECORDS SUMMARY | 2020-05-13 17:43 | XMS REPORT | Clinical Summary ---
:1935 Author Organization [facility] Address [address] [place] [address] Care Team Providers Name Role Phone Asked, No Pcp Primary Care Provider Unavailable Allergies No Known Active Allergies Medications Medication Sig Dispensed Refills Start [...] Jerry Mchugh MD 06/01/2019 Surgery Procedural Lilia Burton, Eneida p sylvia Cardiology pulse generator [29689 (CPT)] 05/31/2019 - Hospital Encounter Cardiology Tano Martin, 06/02/2019 MD after 05/13/2019 Surgical History Surgery Date Site/Laterality Comments CARDIAC SURGERY CARDIAC ELECTROPHYSIOLOGY 06/01/2019 Left Proced ure: Insertion PROCEDURE pacemaker pulse generator; Surgeon: Lilia Burton MD; Location: [facility] Loc ation; Service: Cardiol ogy; Laterality: Left ; Medical devices from this surgery are in t he Implants section . CARDIAC CATHETERIZATION 06/01/2019 N/A Procedur e: CV LEFT HEART CATH LV GRAM WIT H CORS; Surgeon: Lilia Burton MD; Location: [facility] Loc ation; Service: Cardiol ogy; Laterality: N/A; Medical devices from this surgery are in t he Implants section . Medical History Medical History Date Comments Myocardial infarction (HCC) Hypertension Chronic kidney disease Hypercholesteremia Hiatal hernia Family History Medical History Relation Name Comments [...] Assigned at Date Recorded Not on file Last Filed Vital Signs Vital Sign Reading Time Taken Comments Blood Pressure 130/71 06/02/2019 9:00 AM FLIGHT TEST SUPERVISOR Pulse 66 06/02/2019 9:00 AM FLIGHT TEST SUPERVISOR Temperature 35.9 C (96.7 F) 06/02/2019 9:00 AM FLIGHT TEST SUPERVISOR Respiratory Rate 20 06/02/2019 9:00 AM FLIGHT TEST SUPERVISOR Oxygen Saturation 96% 06/02/2019 9:00 AM FLIGHT TEST SUPERVISOR Inhaled Oxygen Concentration - - Weight 100 kg (221 lb) 06/02/2019 4:58 AM FLIGHT TEST SUPERVISOR Height 172.7 cm (5' 8") 05/31/2019 5:26 PM FLIGHT TEST SUPERVISOR Body Mass Index 33.6 05/31/2019 5:26 PM FLIGHT TEST SUPERVISOR Plan of Treatment Health Maintenance Due Date Last Done Comments COVID-19 VACCINE (#1) 1951 SHINGLES VACCINES (#1) 1983 65+ PNEUMOCOCCAL VACCINE (1 of 1 - PPSV23) 1998 INFLUENZA VACCINE 12/24/2019 Implants Implanted Type Area Cement Rubber Device Shelf Model / Identifier Expiration Serial / Date Lot Accolade Mri Pacemaker - [id number] Cardiac Pacemaker N/A: B OSTON 03/24/2021 [id number] / Implanted: 06/01/2019 at [facility] (Quantity not on file) Gen erators N/A SCIENTIFIC- [id number] / [id number] Ingevity Mri Pacing Lead 52cm - [id number] Cardiac Pacing N/A: BOSTON 04/29/2021 [id number] / Implanted: 06/01/2019 at [facility] (Quantity not on file) Rocio ds or N/A SCIENTIFIC- CRM [id number] / Electrodes or [id number] Accessories Ingevity Mri Pacing Lead Is-1 Bipolar 59cm - [id number] Cardiac Pacing N/A: BOSTON 05/01/2021 [id number] / Implanted: 06/01/2019 at [facility] (Quantity not on file) Rocio ds or N/A [employer] [id number] / Electrodes or [id number] Accessories Envlp Impl Crdvrtr Dfb Antbctrl Fully Resorb Lg Aigiss rx R - [id number] Cardiovascular N/A: [employer] [id number] / Implanted: 06/01/2019 at [facility] (Quantity not on file) Implants N/A / Procedures Procedure Name Priority Date/Time Associated Comments Diagnosis MANUAL DIFFERENTIAL Routine 06/02/2019 2:50 Resu lts for this AM FLIGHT TEST SUPERVISOR procedure are i n the results section. ESTIMATED GFR Routine 06/02/2019 2:50 Results fo r this AM FLIGHT TEST SUPERVISOR procedure are i n the results section. BASIC METABOLIC PANEL Routine 06/02/2019 2:50 Re sults for this AM FLIGHT TEST SUPERVISOR procedure are i n the results section. CBC WITH PLATELET AND Routine 06/02/2019 2:50 Re sults for this DIFFERENTIAL AM FLIGHT TEST SUPERVISOR procedure are i n the results section. XR CHEST 1 VW PORTABLE Routine 06/01/2019 7:12 R esults for this PM FLIGHT TEST SUPERVISOR procedure are i n the results section. ECG PRE/POST OP Routine 06/01/2019 6:28 Results for this PM FLIGHT TEST SUPERVISOR procedure are i n the results section. CV LEFT HEART CATH LV Routine 06/01/2019 5:30 Re sults for this GRAM WITH CORS PM FLIGHT TEST SUPERVISOR procedure are in the results section. EP INSERTION PACEMAKER Routine 06/01/2019 5:30 R esults for this PULSE GENERATOR WITH PM FLIGHT TEST SUPERVISOR procedu re are in EXISTING LEADS the results section. TYPE AND SCREEN STAT 06/01/2019 12:19 Results for this PM FLIGHT TEST SUPERVISOR procedure are i n the results section. ESTIMATED GFR Routine 05/31/2019 9:30 Results fo r this PM FLIGHT TEST SUPERVISOR procedure are i n the results section. THYROID STIMULATING Routine 05/31/2019 9:30 Resu lts for this HORMONE PM FLIGHT TEST SUPERVISOR procedure are i n the results section. PHOSPHORUS LEVEL Routine 05/31/2019 9:30 Results for this PM FLIGHT TEST SUPERVISOR procedure are i n the results section. MAGNESIUM LEVEL Routine 05/31/2019 9:30 Results for this PM FLIGHT TEST SUPERVISOR procedure are i n the results section. COMPREHENSIVE METABOLIC Routine 05/31/2019 9:30 Results for this PANEL PM FLIGHT TEST SUPERVISOR procedure are i n the results section. PARTIAL THROMBOPLASTIN Routine 05/31/2019 9:30 R esults for this TIME (PTT) PM FLIGHT TEST SUPERVISOR procedure are i n the results section. PROTHROMBIN TIME WITH Routine 05/31/2019 9:30 Re sults for this INR PM FLIGHT TEST SUPERVISOR procedure are i n the results section. TROPONIN Routine 05/31/2019 9:30 Results for this PM FLIGHT TEST SUPERVISOR procedure are i n the results section. HC COMPLETE BLD COUNT Routine 05/31/2019 9:30 Re sults for this W/AUTO DIFF PM FLIGHT TEST SUPERVISOR procedure are i n the results section. XR CHEST 1 VW PORTABLE Routine 05/31/2019 8:44 R esults for this PM FLIGHT TEST SUPERVISOR procedure are i n the results section. ECG 12-LEAD STAT 05/31/2019 6:59 Results for this PM FLIGHT TEST SUPERVISOR procedure are i n the results section. after 05/13/2019 Results Estimated GFR (06/02/2019 2:50 AM FLIGHT TEST SUPERVISOR)Only the most recent of2 resultswithin the time period is included. Estimated GFR 46 (A) mL/min/1.73 GARCIA NONDENOMINATIONAL Comment: m2 HOSPITAL Catergory Units Interpretation G1 [...] 2014. Specimen Plasma specimen Performing Organization Address City/State/ZIP Code Phon e Number [facility] DEPARTMENT OF PATHOLOGY AND [address] [place] [phone] [facility] [address] [place] [address] Manual differential (06/02/2019 2:50 AM FLIGHT TEST SUPERVISOR) Manual differential PERFORMED [facility] Neutrophils 68.0 39.0 - 69.0 % [facility] Lymphocytes 22.0 (L) 25.0 - 45.0 % [facility] Monocytes 8.0 0.0 - 10.0 % [facility] Eosinophils 2.0 0.0 - 5.0 % [facility] Basophils 0.0 0.0 - 1.0 % [facility] Metamyelocytes 0 % [facility] Promyelocytes 0 % [facility] Platelet slide review Anival adequate [facility] Specimen Performing Organization Address City/State/ZIP Code Phon e Number [facility] DEPARTMENT OF PATHOLOGY AND [address] [place] [address] [phone] [address] CBC with platelet and differential (06/02/2019 2:50 AM FLIGHT TEST SUPERVISOR)Only the most recent of2 resultswithin the time period is included. Pathologist Sig nature WBC 10.19 4.50 - 11.00 k/uL [facility] RBC 4.88 4.40 - 6.00 m/uL [facility] HGB 15.5 14.0 - 18.0 g/dL [facility] HCT 47.3 41.0 - 51.0 % [facility] MCV 96.9 82.0 - 100.0 fL [facility] MCH 31.8 27.0 - 34.0 pg [facility] MCHC 32.8 31.0 - 37.0 g/dL [facility] RDW - SD 47.7 37.0 - 55.0 fL [facility] MPV 10.7 8.8 - 13.2 fL [facility] Platelet count 208 150 - 400 k/uL [facility] Nucleated RBC 0.00 /100 WBC [facility] Neutrophils 68.0 39.0 - 69.0 % [facility] Lymphocytes 22.0 (L) 25.0 - 45.0 % [facility] Monocytes 8.0 0.0 - 10.0 % [facility] Eosinophils 2.0 0.0 - 5.0 % [facility] Basophils 0.0 0.0 - 1.0 % [facility] Specimen Blood Performing Organization Address City/[facility] Phon e Number [facility] DEPARTMENT OF PATHOLOGY AND [address] [place] [address] [phone] [address] Basic metabolic panel (06/02/2019 2:50 AM FLIGHT TEST SUPERVISOR) Pathologist Sig nature Sodium 139 135 - 148 mEq/L [facility] Potassium 3.9 3.5 - 5.0 mEq/L [facility] Chloride 102 98 - 112 mEq/L [facility] CO2 24 24 - 31 mEq/L [facility] Anion gap 13@ANIO 7 - 15 mEq/L [facility] BUN 18 8 - 23 mg/dL [facility] Creatinine 1.37 (H) 0.70 - 1.20 mg/dL [facility] Glucose 126 (H) 65 - 99 mg/dL [facility] Calcium 8.9 8.8 - 10.2 mg/dL [facility] Specimen Plasma specimen Performing Organization Address City/[facility] Phon e Number [facility] DEPARTMENT OF PATHOLOGY AND [address] [place] [address] [phone] [address] XR Chest 1 Vw Portable (06/01/2019 7:12 PM FLIGHT TEST SUPERVISOR)Only the most recent of2 results within the time period is included. Specimen Narrative Performed At EXAMINATION: XR CHEST 1 VW PORTABLE [facility] CLINICAL HISTORY: pneumothorax COMPARISON: 05/31/2019 IMPRESSION: A frontal radiograph of the chest is reviewed. The car diomediastinal silhouette is unchanged. There has been interval place ment of a left subclavian dual-lead pacemaking device. There is no pn eumothorax. Atelectasis is present in the lung bases . There is no pleural effusion. [id number] Procedure Note Interface, Radiology Results Incoming - 06/01/2019 7:46 PM FLIGHT TEST SUPERVISOR EXAMINATION: XR CHEST 1 VW PORTABLE CLINICAL HISTORY: pneumothorax COMPARISON: 05/31/2019 IMPRESSION: A frontal radiograph of the chest is rev iewed. The cardiomediastinal silhouette is unchanged. There has been interval placement of a left subclavian dual-lead pacemaking device. There is no pneumothorax. Atelectasis is present in the lung bases . There is no pleural effusion. [id number] Performing Organization Address [facility] Phon e Number [facility] [address] [place] [address] ECG Pre/Post Op-Tomorrow (06/01/2019 6:28 PM FLIGHT TEST SUPERVISOR) Pathologist Sig nature Ventricular rate 61 [facility] Atrial rate 61 [facility] NE interval 178 [facility] QRSD interval 206 [facility] QT interval 550 [facility] QTC interval 553 [facility] P axis 1 29 [facility] QRS axis 1 -56 [facility] T wave axis 92 [facility] EKG impression Atrial-sensed ventricular-pa carlota rhythm-Abnormal ECG-In automated comparison with ECG of 31-MAY-2019 18:59,-Electronic ventricular pacemaker has replaced Sinus rhythm-Vent. rate has increased BY 24 BPM H MUSE - Specimen Narrative Performed At This result has an attachment that is no t available. Performing Organization Address [facility] Phon e Number [facility] [address] [place] [address] Electrophysiology procedure (06/01/2019 5:30 PM FLIGHT TEST SUPERVISOR) Pathologist Sig nature Cath EF Estimated 60 % [facility] Specimen Narrative Performed At This result has an attachment that is no t available. Left main normal. LAD with patent proximal stent. LCX normal. RCA dominant [facility] and normal. LVEF normal. No aortic valve disease. Iliac aortagram showed tortuous but no significant maris nosis. Performing Organization Address [facility] Phon e Number [facility] [address] [place] [address], [place] laboratory chemist procedure (06/01/2019 5:30 PM FLIGHT TEST SUPERVISOR) Specimen Narrative Performed At This result has an attachment that is no t available. Left main normal. LAD with patent proximal stent. LCX normal. RCA dominant [facility] and normal. LVEF normal. No aortic valve disease. Iliac aortagram showed tortuous but no significant maris nosis. Performing Organization Address [facility] Phon e Number [facility] [address] [place] [address], [place] Type and screen (06/01/2019 12:19 PM FLIGHT TEST SUPERVISOR) Pathologist Sig nature ABO grouping A [facility] Rh type NEG [facility] Antibody screen (gel) NEG [facility] Specimen Blood Performing Organization Address City/[facility] Phon e Number [facility] DEPARTMENT OF PATHOLOGY AND [address] [place] [address] [phone] [address] Troponin (05/31/2019 9:30 PM FLIGHT TEST SUPERVISOR) Pathologist Jovany Troponin 0.008 0.000 - 0.040 [facility] [...] ng/mL Specimen Plasma specimen Performing Organization Address City/[facility] Phon e Number [facility] DEPARTMENT OF PATHOLOGY AND [address] [place] [address] [phone] [address] Partial thromboplastin time, activated (05/31/2019 9:30 PM FLIGHT TEST SUPERVISOR) PTT 28.8 23.0 - 36.0 [facility] Comment: [facility] PTT therapeutic range for unfractionated heparin is 61.0-112.0 seconds which corresponds to Anti-Xa 0.3-0.7 U/ml. Specimen Blood Performing Organization Address City/[facility] Phon e Number [facility] DEPARTMENT OF PATHOLOGY AND [address] [place] [address] [phone] [address] Prothrombin time with INR (05/31/2019 9:30 PM FLIGHT TEST SUPERVISOR) Prothrombin time 14.2 11.5 - 14.5 [facility] INR 1.1 LENAPAH Comment: [facility] International Normalized Ratio (INR) is a [facility] HOSPITAL monitoring tool for patients who are stable on oral anticoagulant therapy. An INR of 2.0-3.0 is suggested for deep vein thrombosis/pulmonary embolism. Specimen Blood Performing Organization Address [facility] Phon e Number [facility] DEPARTMENT OF PATHOLOGY AND [address] [place] [address] [phone] [address] Thyroid stimulating hormone (05/31/2019 9:30 PM FLIGHT TEST SUPERVISOR) Pathologist Sig [facility] TSH 4.05 0.27 - 4.20 uIU/mL [facility] Specimen Plasma specimen Performing Organization Address [facility] Phon e Number [facility] DEPARTMENT OF PATHOLOGY AND [address] [place] [address] [phone] [address] Phosphorus level (05/31/2019 9:30 PM FLIGHT TEST SUPERVISOR) Pathologist Sig nature Phosphorus 2.9 2.4 - 4.5 mg/dL [facility] L Specimen Plasma specimen Performing Organization Address City/[facility] Phon e Number [facility] DEPARTMENT OF PATHOLOGY AND [address] [place] [address] [phone] [address] Magnesium level (05/31/2019 9:30 PM FLIGHT TEST SUPERVISOR) Pathologist Sig nature Magnesium 2.0 1.6 - 2.4 mg/dL [facility] Specimen Plasma specimen Performing Organization Address City/[facility]/ZIP [facility] Phon e Number [facility] DEPARTMENT OF PATHOLOGY AND [address] [place] [phone] [facility] [address] [place] [address] Comprehensive metabolic panel (05/31/2019 9:30 PM FLIGHT TEST SUPERVISOR) Sodium 142 135 - 148 [facility] mEq/L [facility] Potassium 4.1 3.5 - 5.0 [facility] mEq/L [facility] Chloride 103 98 - 112 mEq/L [facility] CO2 24 24 - 31 mEq/L [facility] Anion gap 15@ANIO 7 - 15 mEq/L [facility] BUN 20 8 - 23 mg/dL [facility] Creatinine 1.38 (H) 0.70 - 1.20 [facility] mg/dL [facility] Glucose 125 (H) 65 - 99 mg/dL [facility] Calcium 9.7 8.8 - 10.2 [facility] mg/dL [facility] Protein 7.6 6.3 - 8.3 g/dL [facility] Comment: HOSPITAL Nxmxplc7023.6-7.0 g/dL 1 fhft2975.4-7.6 g/dL 7 months-0ltke077.1-7.3 g/dL 1-2 .6-7.5 g/dL >3 ibzmr388.0-8.0 g/dL 18-4772771.3-8.3 g/dL Albumin 3.8 3.5 - 5.0 g/dL [facility] A/G ratio 1.0 0.7 - 3.8 [facility] Alkaline phosphatase 116 40 - 129 U/L [facility] AST 32 10 - 50 U/L [facility] ALT 24 5 - 50 U/L [facility] Total bilirubin 0.6 0.0 - 1.2 [facility] mg/dL 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 Performing Organization Address City/State/ZIP Code Phon e Number [facility] MUSE [address] [place] [address] after 05/13/2019 Insurance Payer Benefit Plan / Subscriber ID Effective Dates Phone Addre ss Type Group MEDICARE MEDICARE PART A [id number] 1998-Present [place], [place] Medicare AND B BCBS BCBS CHOICE [id number] 2007-Present P PO PPO/[employer] PPO Advance Directives For more information, please contact: [phone] Type Date Recorded Patient Space Operations Explanati on Advance Directives, Living Will and Medical Power of Meat Counter Worker Code Status Date Activated Date Inactivated Comments Full Code 05/31/2019 9:04 PM 06/02/2019 4:41 PM Code Status decision reached by: Patient
--- OUTSIDE RECORDS SUMMARY | 2020-05-13 17:43 | XMS REPORT | Continuity of Care Document ---
:1935 Author Organization [facility] t Address [address] [place] [address] Care Team Providers Name Role Phone Asked, Pcp Primary Care Physician Unavailable Andreia EPPS FCee Attending Clinician Brianna Spence MD Attending Clinician Jose A EPPS V. Attending Clinician Josephine EPPS Attending Clinician ANDREIA Admitting Clinician Unavailable Payers Payer Name Policy Type Policy Effective Date Expiration Date Sour ce Number MEDICAREMEDICARE PART [id number] 1998 Abad Cowart AND 00:00:00 [facility] [id number] 1998[place] [facility] BCBSBCBS CHOICE [id number] 2007 [place] PPO/FEDERAL EMPL 00:00:00 Methodis t [id number] 2007- PresentPPO Problems Condition Condition Condition Status Onset Resolution Last Treating Co mments Source Name Details Category Date Date Treatment Clinician Date Cardiac Cardiac Disease Active [place] arrhythmia arrhythmia 05-31 Vt thodi 00:00: st 00 Allergies, Adverse Reactions, Alerts This patient has no known allergies or adverse reactions. Family History Family Member Diagnosis Comments Start Date Stop Date Source Natural brother Cancer [facility] timothy Natural mother Heart disease [place] [facility] Natural sister Brain cancer [facility] Social History Social Habit Start Date Stop Date Quantity Comments Source History [facility] Meth odist Alcohol Std Drinks History [facility] Meth odist Alcohol Binge Sex Assigned At [facility] ethodist Alcohol intake 2019-06-03 2019-06-[address] [facility] thodist 00:00:00 00:00:00 non-drinker (finding) History SDOH 2019-05-31 2019-05-31 1 [place] Meth odist Alcohol Frequency 00:00:00 00:00:00 Smoking Status Start Date Stop Date Source Never smoker [place] Methodis t Medications Ordered Filled Start Stop Current Ordering Indication Dosage Frequency Signature Comments Components Source Medication Medication Date Date Medication? Clinician (SIG) Name Name clopidogrel 2020-0 2020- No 75mg QD Take 75 mg [...] nightly. st 47 gabapentin 2020-0 Yes 100mg Q.[id number] Take 100 [place] (NEURONTIN) 06-02 [id number] mg by M ethodi 100 mg 12:41: [...] blood 2019-06-02 09:00:00 130 mm[Hg] Cabrera n [facility] pressure Diastolic blood 2019-06-02 09:00:00 71 mm[Hg] Izzy on [facility] pressure Heart rate 2019-06-02 09:00:00 66 /min Johnnie Lr Body temperature 2019-06-02 09:00:00 35.94 Hannah Tino [...] VW PORTABLE 2019-06-01 19:12:51 Parul Vu on [facility] ECG PRE/POST OP 2019-06-01 18:28:08 Parul Vu EP INSERTION PACEMAKER 2019-06-01 17:30:39 Parul Vu PULSE GENERATOR WITH EXISTING LEADS CV LEFT HEART CATH LV GRAM 2019-06-01 17:30:39 Parul Vu WITH CORS TYPE AND SCREEN 2019-06-01 12:19:00 Parul Vu HC COMPLETE BLD COUNT 2019-05-31 21:30:00 Mary Ann Schuster W/AUTO DIFF TROPONIN 2019-05-31 21:30:00 Mary Ann Schuster PROTHROMBIN TIME WITH INR 2019-05-31 21:30:00 Gina Martin [facility] PARTIAL THROMBOPLASTIN 2019-05-31 21:30:00 Gina Martin [facility] TIME (PTT) COMPREHENSIVE METABOLIC 2019-05-31 21:30:00 Gina Martin [facility] PANEL MAGNESIUM LEVEL 2019-05-31 21:30:00 Gina Martin [...] Planned Date Details Comments Source Future Scheduled 2019-12-24 INFLUENZA VACCINE [place] [facility] Test 00:00:00 [code = INFLUENZA VACCINE] Future Scheduled 1998 65+ PNEUMOCOCCAL Johnnie [facility] Test 00:00:00 VACCINE (1 of 1 - PPSV23) [code = 65+ PNEUMOCOCCAL VACCINE (1 of 1 - PPSV23)] Future Scheduled 1983 SHINGLES VACCINES (#1) H gab [facility] Test 00:00:00 [code = SHINGLES VACCINES (#1)] Future Scheduled 1949 COVID-19 VACCINE (#1) Ho liudmila [facility] Test 00:00:00 [code = COVID-19 VACCINE (#1)] Encounters Start End Encounter Admission Attending Care Care Encounter Source Date/Time Date/Time Type Type Clinicians Facility Department ID 2019-05-31 2019-06-02 Inpatient ANDREIA [facility] [id number] Johnnie 00:00:00 00:00:00 GINA Yee Method i st Results Test Description Test Time Test Comments Results Result Comments Source ECG Pre/Post Op-Tomorrow 2019-06-02 20:54:15 Test Item Value Reference Range Interpretation Comme nts Ventricular rate (test code = 253) 61 Atrial rate (test code = 255) 61 CA interval (test code = 266) 178 QRSD [...] rhythm-Vent. rate has increased BY 24 BPM- [place] MethodistCath lab [id number] 16:05:15Left main normal. LAD with patent proximal stent. LCX normal. RCA dominant and normal. LVEF normal. No aortic valve disease. Iliac aortagram showed tortuous but no significant stenosis.[facility] MethodistElectrophysiology [id number] 16:05:14 Test Item Value Reference Range Interpretation Comments Cath EF Estimated 60 % (test code = 7291860456) CURT (test code = CURT) Left main normal. LAD with patent proximal stent. LCX normal. RCA dominant and normal. LVEF normal. No aortic valve disease. Iliac aortagram showed tortuous but no significant stenosis. [place] MethodistCBC with platelet and [id number] 09:47:12 Test Item Value Reference Range Interpretation Comments WBC (test code = 09381-1) 10.19 4.50- 11.00 k/uL RBC (test code = 59814-2) 4.88 m/uL 4.4-6 HGB (test code = 718-7) 15.5 g/dL 14-18 HCT (test code = 4544-3) 47.3 % 41-51 MCV (test code = 787-2) 96.9 fL 82-100 MCH (test code = 785-6) 31.8 pg 27-34 MCHC (test code = 786-4) 32.8 g/dL 31-37 RDW - SD (test code = 25321-4) 47.7 fL 37-55 MPV (test code = 78144-5) 10.7 fL 8.8-13.2 Platelet count (test code = 208 150- 400 k/uL 04638-6) Nucleated RBC (test code = 0.00 /100 WBC 11397-1) Neutrophils (test code = 60635-9) 68.0 % 39-69 Lymphocytes (test code = 82106-2) 22.0 % 25-45 L Monocytes (test code = 77055-4) 8.0 % 0-10 Eosinophils (test code = 10125-9) 2.0 % 0-5 Basophils (test code = 33334-1) 0.0 % 0-1 Lab Interpretation (test code = Abnormal 74895-3) [place] MethodistManual [id number] 09:47:12 Test Item Value Reference Range Interpretation Comments Manual differential (test code = PERFORMED 40172-0) Neutrophils (test code = 68.0 % 39-69 77478-0) Lymphocytes (test code = 22.0 % 25-45 L 86014-4) Monocytes (test code = 11416-8) 8.0 % 0-10 Eosinophils (test code = 2.0 % 0-5 63014-1) Basophils (test code = 78523-5) 0.0 % 0-1 Metamyelocytes (test code = 0 % 740-1) Promyelocytes (test code = 0 % 783-1) Platelet slide review (test code Anival adequate = 47654-3) Lab Interpretation (test code = Abnormal 39850-2) [place] MethodistBasic metabolic [id number] 04:41:31 Test Item Value Reference Range Interpretation Comments Sodium (test code = 2951-2) 139 135- 148 mEq/L Potassium (test code = 2823-3) 3.9 3.5- 5.0 mEq/L Chloride (test code = 2075-0) 102 98- 112 mEq/L CO2 (test code = 8-9) 24 24- 31 mEq/L Anion gap (test code = 17584-2) 13@ANIO 7- 15 mEq/L BUN (test code = 3094-0) 18 mg/dL 8-23 Creatinine (test code = 2160-0) 1.37 mg/dL 0.7-1.2 H Glucose (test code = 2345-7) 126 mg/dL 65-99 H Calcium (test code = 71340-2) 8.9 mg/dL 8.8-10.2 Lab Interpretation (test code = Abnormal 14727-2) [place] MethodistEstimated [id number] 04:41:30 Test Item Value Reference Range Interpretation Comments Estimated GFR (test 46 mL/min/1.73 m2 A Marga willis Units code = 5488) InterpretationG 1 >=90 Maribel l or highG2 60-89 Mildly decrease dG3a 45-59 Mil dly to moderately decr zvewrF3h 30-44 Moderately to s everely decreasedG4 15-29 Severe ly decreasedG5 <15 Kidney nina lureThe eGFR was calcul ated using the Chron ic Kidney Disease Epidemiology Collaboration ( CKD-EPI) equation. Interpretation is based on recommendati ons of the [facility]-Kidn ey Disease Outcome s Quality Initiat miracle (NK-KDOQI) pub lished in 2013. Lab Interpretation Abnormal (test code = 95292-9) [place] MethodistXR Chest 1 Vw [id number] 19:43:18Hm Interface, Radiology Results Incoming - 06/01/2019 7:46 PM CSTEXAMINATION: XR CHEST 1 VW PORTABLECLINICAL HISTORY: pneumothoraxCOMPARISON: 05/31/2019IMPRESSION:A frontal radiograph of the chest isreviewed. The cardiomediastinal silhouette is unchanged. There has been interval placement of a leftsubclavian dual-lead pacemaking device. There is no pneumothorax. Atelectasis is present in the lung bases. There is no pleural effusion.[id number] MethodistType and [id number] 13:29:00 Test Item Value Reference Range Interpretation Comments ABO grouping (test code = 883-9) A Rh type (test code = 51967-9) NEG Antibody screen (gel) (test code = NEG 890-4) [place] MethodistECG 12 [id number] 08:46:14 Test Item Value Reference Range Interpretation [...] MD (1000) on 06/01/2019 8:46:08 AM Johnnie [id number] 22:26:15 Test Item Value Reference Range Interpretation Comments Troponin (test code 0.008 ng/mL 0-0.04 In patie nts suspected = 08400-5) of having a cj cardial infarction, kalli ralph with all other appro priate clinical measur [...] decreased by le ss than 0.020 ng/mL [place] MethodistThyroid stimulating [id number] 22:21:10 Test Item Value Reference Range Interpretation Comments TSH (test code = 3016-3) 4.05 0.27- 4.20 uIU/mL [place] MethodistComprehensive metabolic [id number] 22:15:05 Test Item Value Reference Range Interpretation Comments Sodium (test code = 142 135- 148 mEq/L 2951-2) Potassium (test code = 4.1 3.5- 5.0 mEq/L 2823-3) Chloride (test code = 103 98- 112 mEq/L 5-0) CO2 (test code = 2027-) 24 24- 31 mEq/L Anion gap (test code = 15@ANIO 7- 15 mEq/L 69731-2) BUN (test code = 3094-0) 20 mg/dL 8-23 Creatinine (test code = 1.38 mg/dL 0.7-1.2 H 2160-0) Glucose (test code = 125 mg/dL 65-99 H 2345-7) Calcium (test code = 9.7 mg/dL 8.8-10.2 24999-1) Protein (test code = 7.6 g/dL 6.3-8.3 9994.6-7.0 2885-2) g/dL1 tlhs9265.4-7.6 g/dL7 months-7zyxj331 .1- 7.3 g/dL1-2 .6-7.5 g/dL>3 .0-8.0 g/sU97-0360961. 3-8 .3 g/dL Albumin (test code = 3.8 g/dL 3.5-5 1751-7) A/G ratio (test code = 1.0 0.7-3.8 1759-0) Alkaline phosphatase 116 U/L 40-129 (test code = 6768-6) AST (test code = 1920-8) 32 U/L 10-50 ALT (test code = 1742-6) 24 U/L 5-50 Total bilirubin (test 0.6 mg/dL 0-1.2 code = 1974-2) Lab Interpretation (test Abnormal code = 64394-4) [place] MethodistMagnesium [id number] 22:15:05 Test Item Value Reference Range Interpretation Comments Magnesium (test code = 20201-2) 2.0 mg/dL 1.6-2.4 [place] MethodistPhosphorus [id number] 22:15:03 Test Item Value Reference Range Interpretation Comments Phosphorus (test code = 2777-1) 2.9 mg/dL 2.4-4.5 [place] MethodistPartial thromboplastin time, [id number] 21:53:28 Test Item Value Reference Range Interpretation Comments PTT (test code = 28.8 23.0- 36.0 [place] [address]-9) unfractionated heparin is61.0-112.0 se conds which corresponds to Anti-Xa0.3-0.7 U/ml. Johnnie LrProthrombin time with [id number] 21:52:44 Test Item Value Reference Range Interpretation Comments Prothrombin time (test 14.2 11.5- 14.5 sec code = 5902-2) INR (test code = 1.1 The Interna tional 60506-3) Normalized Rati o (INR) is a therapeutic m onitoring tool for patien ts who are stable on oral anticoagulant t herapy. An INR of 2.0-3.0 is suggested for d eep vein thrombosis/pulm onary embolism. Johnnie Lr
[2020-05-13] MEDS ORDERED: ASPIRIN 81 MG CHEWABLE TABLET ONE (18:30)
[2020-05-13] MEDS ORDERED: NITROGLYCERIN 0.4 MG/TAB SL ONE (18:31)
[2020-05-13 18:47] LABS: Protime INR 0.96
[2020-05-13 18:50] LABS: Absolute Lymphocytes (CBC) 2.1 K/uL (0.7-4.9); Basophils % 1.1 % (0-1.3); Hematocrit 43.8 % (39.6-49.0); MPV 8.3 fL (7.6-11.3); RBC Red Blood Cell Count 4.57 M/uL (4.33-5.43)
[2020-05-13 19:03] LABS: ALT/SGPT 30 U/L (12-78); AST/SGOT 30 U/L (15-37); Albumin 3.8 g/dL (3.4-5.0); Alkaline Phosphatase 120 U/L (45-117); BUN Blood Urea Nitrogen 17 mg/dL (7-18); Bicarbonate 26 mmol/L (21-32); Bilirubin Direct < 0.1 mg/dL (0-0.2); Bilirubin Total 0.5 mg/dL (0.2-1.0); Glucose Level 115 mg/dL (74-106); NT PRO-BNP 144 pg/mL (<450); Potassium 3.9 mmol/L (3.5-5.1); Protein, Total 7.5 g/dL (6.4-8.2); Sodium Level 141 mmol/L (136-145); Troponin (Emerg Dept Use Only) < 0.02 ng/mL (0.0-0.045)
--- NOTE | 2020-05-13 19:42 | ER ---
Nurse's Notes [facility] Name: Leanna Judge Age: 84 yrs Sex: Male : 1935 Arrival Date: 05/13/2020 Time: 17:41 Bed 6 Private MD: Supa Graham C Diagnosis: Chest pain, unspecified Presentation: 05/13 17:48 Chief complaint: Patient states: right sided chest pain radiating to left shoulder iw across his back, started yesterday worse tonight, worse when he sits still, previous hx of SD with stent 7 years ago and pacemaker placement in [place] in May. Coronavirus screen: At this time, the client does not indicate any symptoms associated with coronavirus-19. Ebola Screen: Patient negative for fever greater than or equal to 101.5 degrees Fahrenheit, and additional compatible Ebola Virus Disease symptoms Patient denies exposure to infectious person. Patient denies travel to an Ebola-affected area in the 21 days before illness onset. No symptoms or risks identified at this time. Initial Sepsis Screen: Does the patient meet any 2 criteria? No. Patient's initial sepsis screen is negative. Does the patient have a suspected source of infection? No. Patient's initial sepsis screen is negative. Risk Assessment: Do you want to hurt yourself or someone else? Patient reports no desire to harm self or others. Onset of symptoms was May 12, 2020. 17:48 Method Of Arrival: Wheelchair iw 17:48 Acuity: GRACIE 2 iw Historical: - Allergies: 17:52 No Known Allergies; iw - Home Meds: 17:52 allopurinol 100 mg Oral tab 1 tab once daily [Active]; escitalopram oxalate 10 mg oral iw tab 1 tab once daily [Active]; simvastatin 40 mg Oral tab 1 tab once daily [Active]; aspirin 81 mg oral TbEC once daily [Active]; gabapentin 100 mg Oral cap 3 times per day [Active]; valsartan 320 mg oral tab once daily [Active]; nitroglycerin 0.4 mg SL subl 1 tab every 5 minutes [Active]; - PMHx: 17:52 Gout; Hyperlipidemia; Myocardial infarction; iw - PSHx: 17:52 Heart stents; pacemaker; melanoma removed; iw - Immunization history:: Adult Immunizations up to date. - Social history:: Smoking status: Patient denies any tobacco usage or history of. Screenin:10 Abuse screen: Denies threats or abuse. Denies injuries from another. Nutritional ph screening: No deficits noted. Tuberculosis screening:. Fall Risk None identified. Assessment: 18:08 General: Appears in no apparent distress. comfortable, well groomed, Behavior is calm, ph cooperative, appropriate for age. Pain: Complains of pain in anterior aspect of right upper chest Pain radiates to L shoulder and back. Neuro: Level of Consciousness is awake, alert, obeys commands, Oriented to person, place, time, situation. Cardiovascular: Reports chest pain, Denies lightheadedness, shortness of breath. Cardiovascular: Rhythm is Respiratory: Airway is patent Respiratory effort is even, unlabored, Respiratory pattern is regular, symmetrical. GI: No signs and/or symptoms were reported involving the gastrointestinal system. Derm: Skin is intact, Skin is pink, warm \T\ dry. Musculoskeletal: Circulation, motion, and sensation intact. Range of motion: intact in all extremities. 18:57 Reassessment: Patient appears in no apparent distress at this time. Patient and/or ph family updated on plan of care and expected duration. Pain level reassessed. Patient is alert, oriented x 3, equal unlabored respirations, skin warm/dry/pink. Pt reports that chest pain has decreased after nitro SL, awaiting lab and radiology results, VSS. 19:10 Reassessment: Patient appears in no apparent distress at this time. Patient and/or jb4 family updated on plan of care and expected duration. Pain level reassessed. Patient is alert, oriented x 3, equal unlabored respirations, skin warm/dry/pink. 20:00 Reassessment: Patient appears in no apparent distress at this time. Patient and/or jb4 family updated on plan of care and expected duration. Pain level reassessed. Patient is alert, oriented x 3, equal unlabored respirations, skin warm/dry/pink. Vital Signs: 17:48 BP 177 / 82; Pulse 72; Resp 16; Temp 98.8; Pulse Ox 99% on R/A; Weight 102.06 kg; iw Height 5 ft. 9 in. (175.26 cm); Pain 7/10; 19:01 BP 126 / 79; Pulse 60; Resp 18; Pulse Ox 98% on R/A; ph 20:00 BP 131 / 69; Pulse 60; Resp 16; Pulse Ox 97% on R/A; jb4 17:48 Body Mass Index 33.23 (102.06 kg, 175.26 cm) iw ED Course: 17:41 Patient arrived in ED. rg4 17:41 Supa Graham MD is Private Physician. rg4 17:50 Triage completed. iw 17:52 Arm band placed on. iw 18:08 Nik Hampton PA is PHCP. cp 18:08 Marco Waite MD is Attending Physician. cp 18:08 Kelly Reid RN is Primary Nurse. ph 18:10 Patient has correct armband on for positive identification. Placed in gown. Bed in low ph position. Call light in reach. Side rails up X 1. sales account manager on. Pulse ox on. NIBP on. Door closed. Noise minimized. Warm blanket given. 18:11 EKG done, by ED staff, reviewed by Marco Waite MD. Patient maintains SpO2 saturation ph greater than 95% on room air. 18:32 XRAY Chest (1 view) In Process Unspecified. EDMS 19:10 Primary Nurse role handed off by Kelly Reid RN jb4 19:10 Tano Blunt, ASIF is Primary Nurse. jb4 19:41 Supa Graham MD is Hospitalizing Provider. cp 20:40 Patient admitted, IV remains in place. jb4 20:40 No provider procedures requiring assistance completed. jb4 Administered Medications: 18:20 Drug: Nitroglycerin 0.4 mg Route: Sublingual; ph 18:56 Follow up: Response: No adverse reaction; Pain is decreased ph 18:20 Drug: Aspirin Chewable Tablet 162 mg Route: PO; ph 18:56 Follow up: Response: No adverse reaction ph 20:17 Not Given (Patient Refused): morphine 2 mg IVP once; (PAIN>8) RASS on ADMN: Combtv4, mg2 Very Agttd3, Agttd2, Rstlss1, AlertClm0, Drwsy-1, LtSdtn-2, ModSdtn-3, DpSdtn-4, UnArsble-5 x2 Outcome: 19:41 Decision to Hospitalize by Provider. cp 20:44 Admitted to Med/surg accompanied by tech, via wheelchair, room 225, with chart, Report jb4 called to ASIF Munoz 20:44 Condition: stable 20:44 Discharge instructions given to patient, family, Instructed on the need for admit, Demonstrated understanding of instructions. 21:00 Patient left the ED. ll1 Signatures: Dispatcher [employer] Echo Copeland RN RN iw Hall, Patricia, RN RN Nik Rojas PA PA cp Garcia, Rubi rg4 Tano Blunt RN RN jb4 Veronika Tran RN RN ll1 Foster Esteves RN mg2 Corrections: (The following items were deleted from the chart) 19:05 18:08 Pain: Complains of pain in anterior aspect of left upper chest Pain radiates to L ph shoulder and back ph
--- NOTE | 2020-05-13 19:42 | EDPHYS ---
Physician Documentation [facility] Name: Leanna Judge Age: 84 yrs Sex: Male : 1935 Arrival Date: 05/13/2020 Time: 17:41 Bed 6 Private MD: Supa Graham C ED Physician Marco Waite HPI: 05/13 18:12 This 84 yrs old Male presents to ER via Wheelchair with complaints of Chest cp Pain, Back Pain, Shoulder Pain. 18:12 The patient or guardian reports chest pain that is located primarily in the right side cp of chest. 18:12 Onset: yesterday, and became worse today. The pain radiates to from right side of back. cp Associated signs and symptoms: Pertinent negatives: abdominal pain, cough, lower extremity pain, lower extremity swelling, shortness of breath. Modifying factors: the symptoms are aggravated by lying back. Patient reports history of DC times 3 and pain is similar to heart attack pain. Historical: - Allergies: 17:52 No Known Allergies; iw - Home Meds: 17:52 allopurinol 100 mg Oral tab 1 tab once daily [Active]; escitalopram oxalate 10 mg oral iw tab 1 tab once daily [Active]; simvastatin 40 mg Oral tab 1 tab once daily [Active]; aspirin 81 mg oral TbEC once daily [Active]; gabapentin 100 mg Oral cap 3 times per day [Active]; valsartan 320 mg oral tab once daily [Active]; nitroglycerin 0.4 mg SL subl 1 tab every 5 minutes [Active]; - PMHx: 17:52 Gout; Hyperlipidemia; Myocardial infarction; iw - PSHx: 17:52 Heart stents; pacemaker; melanoma removed; iw - Immunization history:: Adult Immunizations up to date. - Social history:: Smoking status: Patient denies any tobacco usage or history of. ROS: 18:14 Constitutional: Negative for body aches, chills, fever, poor PO intake. cp 18:14 Eyes: Negative for injury, pain, redness, and discharge. cp 18:14 ENT: Negative for ear pain, sore throat, difficulty swallowing, difficulty handling secretions. 18:14 Cardiovascular: Positive for chest pain, Negative for edema, palpitations. 18:14 Respiratory: Negative for cough, shortness of breath, wheezing. 18:14 Abdomen/GI: Negative for abdominal pain, nausea, vomiting, and diarrhea. 18:14 Back: Positive for pain at rest, pain with movement, of the right scapular area and right subscapular area. 18:14 Skin: Negative for rash. 18:14 Neuro: Negative for altered mental status, headache, weakness. 18:14 All other systems are negative. Exam: 18:15 ECG was reviewed by the Attending Physician. cp 18:20 Constitutional: The patient appears in no acute distress, alert, awake, cp non-diaphoretic, non-toxic, well developed, well nourished. 18:20 Head/Face: Normocephalic, atraumatic. cp 18:20 Eyes: Periorbital structures: appear normal, Conjunctiva: normal, no exudate, no injection, Sclera: no appreciated abnormality, Lids and lashes: appear normal, bilaterally. 18:20 ENT: External ear(s): are unremarkable, Nose: is normal, Posterior pharynx: Airway: no evidence of obstruction, patent. 18:20 Neck: ROM/movement: is normal, is supple, without pain, no range of motions limitations. 18:20 Chest/axilla: Inspection: normal, Palpation: is normal, no crepitus, no tenderness. 18:20 Cardiovascular: Rate: normal, Rhythm: regular, Pulses: Pulses are 2+ in right radial artery and left radial artery. Edema: is not appreciated, JVD: is not appreciated. 18:20 Respiratory: the patient does not display signs of respiratory distress, Respirations: normal, no use of accessory muscles, no retractions, labored breathing, is not present, Breath sounds: are clear throughout, no decreased breath sounds, no stridor, no wheezing. 18:20 Abdomen/GI: Inspection: abdomen appears normal, Palpation: abdomen is soft and non-tender, in all quadrants. 18:20 Back: pain, that is mild, of the right scapular area and right subscapular area. 18:20 Skin: no rash present. Vital Signs: 17:48 BP 177 / 82; Pulse 72; Resp 16; Temp 98.8; Pulse Ox 99% on R/A; Weight 102.06 kg; iw Height 5 ft. 9 in. (175.26 cm); Pain 7/10; 19:01 BP 126 / 79; Pulse 60; Resp 18; Pulse Ox 98% on R/A; ph 20:00 BP 131 / 69; Pulse 60; Resp 16; Pulse Ox 97% on R/A; jb4 17:48 Body Mass Index 33.23 (102.06 kg, 175.26 cm) iw MDM: 18:12 Patient medically screened. 19:15 Data reviewed: vital signs, nurses notes, lab test result(s), EKG, radiologic studies, cp plain films. 19:15 The patient was given aspirin in the Emergency Department. Test interpretation: by ED cp physician or midlevel provider: ECG, chest xray negative for infiltrates. 19:45 Physician consultation: A Santos EPPS was called at 19:30, was contacted at 19:30, cp regarding admission, to the telemetry unit. patient's condition. 05/13 18:07 Order name: Basic Metabolic Panel; Complete Time: 19:07 rn 05/13 19:07 Interpretation: Normal except: GLUC 115; CRE 1.33; GFR 51. 05/13 18:07 Order name: CBC with Diff; Complete Time: 19:07 rn 05/13 18:07 Order name: LFT's; Complete Time: 19:07 rn 05/13 18:07 Order name: Magnesium; Complete Time: 19:07 rn 05/13 18:07 Order name: NT PRO-BNP; Complete Time: 19:07 rn 05/13 18:07 Order name: PT-INR; Complete Time: 19:07 rn 05/13 18:07 Order name: Troponin (emerg Dept Use Only); Complete Time: 19:07 rn 05/13 19:08 Interpretation: Within normal limits: TROPED < 0.02. 05/13 19:14 Order name: Urine Microscopic Only; Complete Time: 20:32 05/13 19:48 Order name: Basic Metabolic Panel EDMS 05/13 19:48 Order name: Basic Metabolic Panel EDMS 05/13 19:48 Order name: CBC with Automated Diff EDMS 05/13 19:48 Order name: CBC with Automated Diff EDMS 05/13 19:48 Order name: Troponin I EDMS 05/13 19:48 Order name: Troponin I EDMS 05/13 18:07 Order name: XRAY Chest (1 view); Complete Time: 20:32 rn 05/13 20:33 Interpretation: Report reviewed. 05/13 18:07 Order name: EKG; Complete Time: 18:08 rn 05/13 18:07 Order name: Cardiac monitoring; Complete Time: 18:11 rn 05/13 18:07 Order name: EKG - Nurse/Tech; Complete Time: 18:11 rn 05/13 19:46 Order name: CONS Physician Consult EDMN 05/13 19:48 Order name: EKG Electrocardiogram EDMS 05/13 19:48 Order name: EKG Electrocardiogram EDMS 05/13 19:48 Order name: EKG Electrocardiogram EDMS 05/13 19:48 Order name: EKG Electrocardiogram EDMS 05/13 19:48 Order name: EKG Electrocardiogram EDMS 05/13 19:48 Order name: Troponin I EDMS 05/13 19:59 Order name: Urine Dipstick--Ancillary (enter results) [facility] 05/13 20:32 Order name: Urine Dipstick-Ancillary EDMN 05/13 18:07 Order name: IV Saline Lock; Complete Time: 18:56 rn 05/13 18:07 Order name: Labs collected and sent; Complete Time: 18:56 rn 05/13 18:07 Order name: O2 Per Protocol; Complete Time: 18:11 rn 05/13 18:07 Order name: O2 Sat Monitoring; Complete Time: 18:11 rn 05/13 19:14 Order name: Urine Dipstick-Ancillary (obtain specimen); Complete Time: 19:58 cp EC:15 Rate is 72 beats/min. Rhythm is regular, Paced. QRS interval is prolonged at 174 msec. cp QT interval is normal. T waves are Inverted in leads I, aVL, aVR, V2. Interpreted by me. Reviewed by me. Administered Medications: 18:20 Drug: Nitroglycerin 0.4 mg Route: Sublingual; ph 18:56 Follow up: Response: No adverse reaction; Pain is decreased ph 18:20 Drug: Aspirin Chewable Tablet 162 mg Route: PO; ph 18:56 Follow up: Response: No adverse reaction ph 20:17 Not Given (Patient Refused): morphine 2 mg IVP once; (PAIN>8) RASS on ADMN: Combtv4, mg2 Very Agttd3, Agttd2, Rstlss1, AlertClm0, Drwsy-1, LtSdtn-2, ModSdtn-3, DpSdtn-4, UnArsble-5 x2 Disposition: 05/14 14:34 Co-signature as Attending Physician, Marco Waite MD. rn Disposition: 05/13/20 19:41 Hospitalization ordered by Supa Graham for Observation. Preliminary diagnosis is Chest pain, unspecified. - Bed requested for Telemetry/MedSurg (observation). - Status is Observation. ll1 - Condition is Stable. - Problem is new. - Symptoms have improved. Signatures: Dispatcher [employer] EDMS Emma Forte RN RN mw Williams, Irene, RN RN iw Nieto, Roman, MD MD rn Hall, Patricia, RN RN ph Nik Hampton, PA PA Veronika Ritchie RN RN ll1 Foster Esteves RN mg2 Corrections: (The following items were deleted from the chart) 05/13 20:02 19:41 Hospitalization Ordered by A Santos EPPS for Observation. Preliminary diagnosis is mw Chest pain, unspecified. Bed requested for Telemetry/MedSurg (observation). Status is Observation. Condition is Stable. Problem is new. Symptoms have improved. cp 21:00 20:02 05/13/2020 19:41 Hospitalization Ordered by A Santos EPPS for Observation. ll1 Preliminary diagnosis is Chest pain, unspecified. Bed requested for Telemetry/MedSurg (observation). Status is Observation. Condition is Stable. Problem is new. Symptoms have improved. mw
[2020-05-13] MEDS ORDERED: ONDANSETRON 4 MG/2 ML VIAL IV PRN (19:45)
[2020-05-13] MEDS ORDERED: MORPHINE 2 MG/ML SYR ONE (19:48)
--- NOTE | 2020-05-13 20:14 | RAD REPORT ---
EXAM DESCRIPTION: RAD - Chest Single View - 05/13/2020 6:31 pm CLINICAL HISTORY: CHEST PAIN Chest pain. COMPARISON: Chest Pa And Lat (2 Views) dated 01/13/2020; Chest Single View dated 05/31/2019; CHEST SING LE VIEW dated 10/29/2010; CHEST PA AND LAT 2 VIEW dated 11/27/2009 FINDINGS: Portable technique limits examination quality. The lungs are grossly clear. The heart is normal in size. Dual lead pacer device noted. IMPRESSION: No acute intrathoracic process suspected.
[2020-05-13 20:18] LABS: Urine RBC <5 /HPF (NONE SEEN)
[2020-05-13 20:19] LABS: Urine Bacteria NONE SEEN /HPF (NONE SEEN)
[2020-05-13 20:32] LABS: Urine Blood NEGATIVE (NEG); Urine Glucose NEGATIVE (NEG); Urine Protein NEGATIVE (NEG); Urine pH 5.5 (5.0-7.0)
--- NOTE | 2020-05-13 21:36 | HP ---
Date of Admission: 05/13/2020 JEFF/MODL Voice ID: [id number] MTDD
[2020-05-13 21:50] VITALS: BMI 32.2
[2020-05-13] MEDS: GABAPENTIN 100 MG CAP PO SCH (21:55)
[2020-05-13] MEDS ORDERED: AMITRIPTYLINE 25 MG TAB PO SCH (22:00)
[2020-05-13] MEDS ORDERED: ATORVASTATIN 80 MG TAB PO SCH (22:00)
[2020-05-14 03:59] LABS: Absolute Lymphocytes (CBC) 2.4 K/uL (0.7-4.9); Basophils % 1.4 % (0-1.3); Hematocrit 43.3 % (39.6-49.0); Lymphocytes % 30.8 % (15.3-44.8); MPV 8.9 fL (7.6-11.3); RBC Red Blood Cell Count 4.55 M/uL (4.33-5.43)
[2020-05-14 04:06] LABS: Potassium 3.7 mmol/L (3.5-5.1)
--- NOTE | 2020-05-14 08:13 | HP ---
Date of Admission: 05/14/2020 Chief Complaint: Back pain and chest pain. History Of Present Illness: This 84-year-old very pleasant male patient with history of coronary artery disease in the past, came into emergency room with intermittent pain that starts in the right infrascapular region and radiates around to the right anterior chest wall area. Patient has had this pain off and on multiple times yesterday, so he came into emergency room. He feels little cold and clammy when he has this feeling. No shortness of breath. No fall. No injury. No rash. No cough, cold, congestion. No expectoration. No hemoptysis. After he came into emergency room, he was evaluated and admitted to the hospital. This morning when I saw him, he was lying in bed, not in distress. Allergies: NO KNOWN ALLERGIES. Medications: Allopurinol 100 mg daily, amitriptyline 25 mg at bedtime, aspirin 81 mg daily, gabapentin 100 mg 3 times a day, Nitrostat p.r.n., oxybutynin 10 mg daily, simvastatin 40 mg daily in evening, valsartan 160 mg daily. Review of Systems: Cardiovascular: As mentioned above. All other systems reviewed and negative. 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 Shrestha and anxiety problem. Past Surgical History: Significant for coronary artery stent placement in 2007, pacemaker placement on June 01, 2019, excision of melanoma from scalp on January 18, 2020, and February 10, 2020, and radiofrequency ablation procedure. Family History: Parents and brother had heart disease. Brother also had throat cancer. Sister had heart disease as well. Social History: Negative for smoking or alcohol use. Physical Examination: Vital Signs: When patient first came to emergency room, blood pressure 177/82, pulse 72, respiratory rate 16, temperature 98.8, pulse ox 99%. Weight 102 kg, height 5 feet 9 inches. General: Awake, alert, oriented, not in distress. HEENT: Head atraumatic, normocephalic. Conjunctivae nonerythematous. Sclerae white. Mouth, no thrush or edema noted. Ears/Nose, no mass, lesion, discharge noted. Neck: Supple. No JVD, lymph nodes, bruit, thyromegaly noted. Lungs: Bilateral good equal air entry. Clear to auscultation. No rhonchi. No rales. Heart: Normal heart sounds, no murmur or gallop. Abdomen: Soft, bowel sounds normal. No guarding, rigidity, tenderness, mass, hepatosplenomegaly, distention, or bruit noted. Extremities: No leg edema. No calf tenderness. Skin: No rash, ulcer, cellulitis. Lymphatics: No lymph node enlargement in neck, supraclavicular, infraclavicular region. Neuro: No focal neurological deficit. Chest: Unremarkable. External Genitalia: Deferred. Rectal: Deferred. Laboratory Data: Chest x-ray, no acute cardiopulmonary changes. White count 6.4, hemoglobin 14.7, platelets 242. INR 0.96. Sodium 141, potassium 3.9, chloride 107, bicarb 26, BUN 17, creatinine 1.33, glucose 115. Liver function tests unremarkable. Troponin less than 0.02. Urinalysis negative. COVID-19 test negative. Impression: 1. Chest pain. 2. Coronary artery disease. 3. Hypertension. 4. Type 2 diabetes mellitus. 5. Mixed hyperlipidemia. 6. Status post pacemaker placement. 7. Osteoarthritis, multiple sites. Plan: We will go ahead and admit him to the hospital for further evaluation and management of this problem. IA has been ruled out by getting serial cardiac enzymes. This morning, CBC and chem-7 are unremarkable. His troponin is negative x3. I will go ahead and do x-ray of the thoracic spine and we will wait for pulverizing and sifting operator evaluation. Details and plan of treatment discussed with the patient. Home medications will be continued. JEFF/MODL Voice ID: [id number] RENATO
[2020-05-14] MEDS: GABAPENTIN 100 MG CAP PO SCH ×2 (08:28→13:45)
[2020-05-14] MEDS ORDERED: allopurinoL 100 MG TAB PO SCH (09:00)
[2020-05-14] MEDS ORDERED: VALSARTAN 160 MG TAB PO SCH (09:00)
[2020-05-14] MEDS ORDERED: ASPIRIN EC 81 MG TAB PO SCH (09:00)
[2020-05-14] MEDS ORDERED: METOPROLOL XL 25 MG TAB PO SCH (09:00)
--- NOTE | 2020-05-14 11:57 | RAD REPORT ---
EXAM DESCRIPTION: RAD - Thoracic Spine Ap/Lat - 05/14/2020 11:29 am CLINICAL HISTORY: Back pain FINDINGS: No fracture seen. Osteoporosis Mild spondylosis involves the thoracic spine. Ossification of the anterior longitudinal ligament
[2020-05-14 16:40] VITALS: O2SAT 97
--- NOTE | 2020-05-14 16:49 | CON ---
Date of Consultation: 05/14/2020 Reason For Consultation: Chest pain. History Of Present Illness: This is an 84-year-old male with history of coronary artery disease stat us post PCI, history of hypertension, dyslipidemia, diabetes, and pacemaker implantation. Comes in w ith pain, more in his back side that radiates to the anterior right chest area, not related to exerti on. No shortness of breath. No nausea, vomiting, or diarrhea. No abdominal pain. There is no coug h. No other complaints. Past Medical History: As outlined above in the HPI. Medications: Refer to reconciliation sheet for detailed list. Allergies: NO KNOWN DRUG ALLERGIES. Family History: No premature coronary artery disease or cancer. Review of Systems: All systems were reviewed and they were negative except what mentioned in the HPI. Physical Examination: Vital Signs: Temperature is 97.6, pulse 62, breathing 18, blood pressure 148/66, saturating 96%. General: Pleasant elderly male, in no distress. Head and Neck: Pupils are equal, reactive to light. Intact eye movements. No JVD. No cervical lym phadenopathy. Neck: Supple. Thyroid is not enlarged. Lungs: Clear to auscultation bilaterally. No rhonchi, rales, or crackles. No accessory muscle use. Heart: Regular rate and rhythm. No extra sounds. Abdomen: Soft, nontender. Bowel sounds positive. No organomegaly. No masses or hernia. No rigidi ty or rebound. Extremities: No edema, clubbing, or cyanosis. Intact pulses. Skin: No rash noted. Neurologic: Alert, awake, oriented x3. No acute focal deficits appreciated. Investigations: Troponins x2 were negative. Creatinine 1.18 and hemoglobin was 14.8. Assessment And Plan: Chest pain. This is atypical for cardiac etiology. Cardiac enzymes are negati ve. From Cardiology standpoint, the patient can be released and can schedule a nuclear stress test a s an outpatient. Continue aspirin and high-dose statin and follow Cardiology within 3-4 weeks post d ischarge for a nuclear stress test. Thank you for the consultation. /JORGE Voice ID: [id number] Report ID: [id number]
[2020-05-14] MEDS ORDERED: AMLODIPINE 5 MG TAB PO ONE (20:02)
[2020-05-14 20:43] VITALS: BP 170/90
--- NOTE | 2020-05-14 21:49 | DS ---
Date of Discharge: 05/14/2020 Disposition: The patient was discharged this evening to go home. Physical Examination: Please see copy of today's H and P for details. Discharge Diagnoses: 1. Chest pain. 2. Coronary artery disease. 3. Hypertension. 4. Type 2 diabetes mellitus. 5. Mixed hyperlipidemia. 6. Status post pacemaker placement. 7. Osteoarthritis, multiple sites. Discharge Instruction/medications: 1. Continue all prior home medications. 2. Follow up at my office day after tomorrow. 3. Follow up with equal opportunity assistant per his recommendation. Hospital Course: This is an 84-year-old male patient admitted to the hospital with chest pain. Please see dictated H and P for more information. The patient was evaluated in the ER, admitted to the hospital and DC was ruled out. Dr. Bethea saw him from Cardiology Service and he recommended outpatient testing to be done at his office and the patient was medically stable. He wanted to go home this evening. So, the nurse contacted me this evening with all this information. From Cardiology point of view, he can be discharged but patient wants to go home tonight, so he was discharged to go home in stable condition with above-mentioned medications and instructions. JEFF/MODL Voice ID: [id number] Report ID: [id number] RENAOT
[2020-05-14 22:22] VITALS: TEMP 97.8
--- NOTE | 2020-05-15 12:39 | EKG ---
Test Date: 2020-05-15 Test Time: 03:49:55 Heavy Truck Technician: RR MEASUREMENT RESULTS: Intervals: Rate: 60 MN: 80 QRSD: 156 QT: 466 QTc: 466 [place]: P: 105 MN: 80 QRS: -52 T: 104 INTERPRETIVE STATEMENTS: AV sequential or dual chamber electronic pacemaker Compared to ECG 05/13/2020 18:02:38 Ventricular-paced complex(es) or rhythm no longer present Electronically Signed On 05-15-20 12:39:24 BLOW MOLD MACHINE OPERATOR by Thai Breen
== END 2020-05-14 21:05 | disposition home or self-care (01) ==
LOC: ER 17:40 → ERHOLD 19:55 → 2ND 20:44
PROVIDERS: ADMIT Internal Medicine; ATTEND Internal Medicine
DX: R07.9 Chest pain, unspecified (principal); I25.10 Atherosclerotic heart disease of native coronary artery without angina pectoris; E11.9 Type 2 diabetes mellitus without complications; E78.2 Mixed hyperlipidemia; Z95.0 Presence of cardiac pacemaker; M15.9 Polyosteoarthritis, unspecified; Z20.828 Contact with and (suspected) exposure to other viral communicable diseases; I25.2 Old myocardial infarction; M10.9 Gout, unspecified; Z85.820 Personal history of malignant melanoma of skin; Z95.5 Presence of coronary angioplasty implant and graft; Z79.82 Long term (current) use of aspirin; I12.9 Hypertensive chronic kidney disease with stage 1 through stage 4 chronic kidney disease, or unspecified chronic kidney disease; N18.9 Chronic kidney disease, unspecified; N32.81 Overactive bladder
CPT/HCPCS: 36415; 71045; 72070; 80048; 80076; 81003; 81015; 83735; 83880; 84484; 85025; 85610; 93005; 99285; J2270; U0003

== ENCOUNTER 2020-05-15 03:40 | Inpatient (IN) | payer OTHER, BC ==
--- OUTSIDE RECORDS SUMMARY | 2020-05-15 03:43 | XMS REPORT | Clinical Summary ---
:1935 Author Organization [facility] Address [address] [place] [address] Care Team Providers Name Role Phone Asked, [...] Burton, Eneida p sylvia Cardiology pulse generator [[id number] (CPT)] 05/31/2019 - Hospital Encounter Cardiology Tano Martin, 06/02/2019 MD after 05/15/2019 Surgical History Surgery Date Site/Laterality Comments CARDIAC SURGERY CARDIAC ELECTROPHYSIOLOGY 06/01/2019 Left Proced ure: Insertion PROCEDURE pacemaker pulse generator; Surgeon: Lilia Burton MD; Location: [facility]; Service: Cardiol ogy; Laterality: Left ; Medical devices from this surgery are in t he Implants section . CARDIAC CATHETERIZATION 06/01/2019 N/A Procedur e: CV LEFT HEART CATH LV GRAM WIT H CORS; Surgeon: Lilia Burton MD; Location: [facility]; Service: Cardiol ogy; Laterality: [...] Comments Blood Pressure 130/71 06/02/2019 9:00 AM CUP TRIMMING MACHINE OPERATOR Pulse 66 06/02/2019 9:00 AM CUP TRIMMING MACHINE OPERATOR Temperature 35.9 C (96.7 F) 06/02/2019 9:00 AM CUP TRIMMING MACHINE OPERATOR Respiratory Rate 20 06/02/2019 9:00 AM CUP TRIMMING MACHINE OPERATOR Oxygen Saturation 96% 06/02/2019 9:00 AM CUP TRIMMING MACHINE OPERATOR Inhaled Oxygen Concentration - - Weight 100 kg (221 lb) 06/02/2019 4:58 AM CUP TRIMMING MACHINE OPERATOR Height 172.7 cm (5' 8") 05/31/2019 5:26 PM CUP TRIMMING MACHINE OPERATOR Body Mass Index 33.6 05/31/2019 5:26 PM CUP TRIMMING MACHINE OPERATOR Plan of Treatment Health Maintenance Due Date Last Done Comments COVID-19 VACCINE (#1) 1951 SHINGLES VACCINES (#1) 1983 65+ PNEUMOCOCCAL VACCINE (1 of 1 - PPSV23) 1998 INFLUENZA VACCINE 12/24/2019 Implants Implanted Type Area Tour Narrator Device Shelf Model / Identifier Expiration Serial / Date Lot Accolade Mri Pacemaker - [id number] Cardiac Pacemaker N/A: B OSTON 03/24/2021 [id number] / Implanted: 06/01/2019 at [facility] (Quantity not on file) Gen erators N/A SCIENTIFIC- CRM [id number] / [id number] Ingevity Mri Pacing Lead 52cm - [id number] Cardiac Pacing N/A: B[place]ON 04/29/2021 [id number] / Implanted: 06/01/2019 at [facility] (Quantity not on file) Rocio ds or N/A SCIENTIFIC- CRM [id number] / Electrodes or [id number] Accessories Ingevity Mri Pacing Lead Is-1 Bipolar 59cm - [id number] Cardiac Pacing N/A: BOSTON 05/01/2021 [id number] / Implanted: 06/01/2019 at [facility] (Quantity not on file) Rocio ds or N/A [email or web address] [id number] / Electrodes or [id number] Accessories Envlp Impl Crdvrtr Dfb Antbctrl Fully Resorb Lg Aigiss rx R - [id number] Cardiovascular N/A: [employer] [id number] / Implanted: 06/01/2019 at [facility] (Quantity not on file) Implants N/A / Procedures Procedure Name Priority Date/Time Associated Comments Diagnosis MANUAL DIFFERENTIAL Routine 06/02/2019 2:50 Resu lts for this AM CUP TRIMMING MACHINE OPERATOR procedure are i n the results section. ESTIMATED GFR Routine 06/02/2019 2:50 Results fo r this AM CUP TRIMMING MACHINE OPERATOR procedure are i n the results section. BASIC METABOLIC PANEL Routine 06/02/2019 2:50 Re sults for this AM CUP TRIMMING MACHINE OPERATOR procedure are i n the results section. CBC WITH PLATELET AND Routine 06/02/2019 2:50 Re sults for this DIFFERENTIAL AM CUP TRIMMING MACHINE OPERATOR procedure are i n the results section. XR CHEST 1 VW PORTABLE Routine 06/01/2019 7:12 R esults for this PM CUP TRIMMING MACHINE OPERATOR procedure are i n the results section. ECG PRE/POST OP Routine 06/01/2019 6:28 Results for this PM CUP TRIMMING MACHINE OPERATOR procedure are i n the results section. CV LEFT HEART CATH LV Routine 06/01/2019 5:30 Re sults for this GRAM WITH CORS PM CUP TRIMMING MACHINE OPERATOR procedure are in the results section. EP INSERTION PACEMAKER Routine 06/01/2019 5:30 R esults for this PULSE GENERATOR WITH PM CUP TRIMMING MACHINE OPERATOR procedu re are in EXISTING LEADS the results section. TYPE AND SCREEN STAT 06/01/2019 12:19 Results for this PM CUP TRIMMING MACHINE OPERATOR procedure are i n the results section. ESTIMATED GFR Routine 05/31/2019 9:30 Results fo r this PM CUP TRIMMING MACHINE OPERATOR procedure are i n the results section. THYROID STIMULATING Routine 05/31/2019 9:30 Resu lts for this HORMONE PM CUP TRIMMING MACHINE OPERATOR procedure are i n the results section. PHOSPHORUS LEVEL Routine 05/31/2019 9:30 Results for this PM CUP TRIMMING MACHINE OPERATOR procedure are i n the results section. MAGNESIUM LEVEL Routine 05/31/2019 9:30 Results for this PM CUP TRIMMING MACHINE OPERATOR procedure are i n the results section. COMPREHENSIVE METABOLIC Routine 05/31/2019 9:30 Results for this PANEL PM CUP TRIMMING MACHINE OPERATOR procedure are i n the results section. PARTIAL THROMBOPLASTIN Routine 05/31/2019 9:30 R esults for this TIME (PTT) PM CUP TRIMMING MACHINE OPERATOR procedure are i n the results section. PROTHROMBIN TIME WITH Routine 05/31/2019 9:30 Re sults for this INR PM CUP TRIMMING MACHINE OPERATOR procedure are i n the results section. TROPONIN Routine 05/31/2019 9:30 Results for this PM CUP TRIMMING MACHINE OPERATOR procedure are i n the results section. HC COMPLETE BLD COUNT Routine 05/31/2019 9:30 Re sults for this W/AUTO DIFF PM CUP TRIMMING MACHINE OPERATOR procedure are i n the results section. XR CHEST 1 VW PORTABLE Routine 05/31/2019 8:44 R esults for this PM CUP TRIMMING MACHINE OPERATOR procedure are i n the results section. ECG 12-LEAD STAT 05/31/2019 6:59 Results for this PM CUP TRIMMING MACHINE OPERATOR procedure are i n the results section. after 05/15/2019 Results Estimated GFR (06/02/2019 2:50 AM CUP TRIMMING MACHINE OPERATOR)Only the most recent of2 resultswithin the time period is included. Estimated GFR 46 (A) mL/min/1.73 [facility] Comment: m2 HOSPITAL Catergory Units Interpretation G1 [...] Organization Address City/State/ZIP Code Phon e Number [facility] DEPARTMENT OF PATHOLOGY AND [address] [place] [phone] [facility] [address] [place] [address] Manual differential (06/02/2019 2:50 AM CUP TRIMMING MACHINE OPERATOR) Manual differential PERFORMED [facility] Neutrophils 68.0 39.0 - 69.0 % [facility] Lymphocytes 22.0 (L) 25.0 - 45.0 % [facility] Monocytes 8.0 0.0 - 10.0 % [facility] Eosinophils 2.0 0.0 - 5.0 % [facility] Basophils 0.0 0.0 - 1.0 % [facility] Metamyelocytes 0 % [facility] Promyelocytes 0 % [facility] Platelet slide review Anival adequate [facility] Specimen Performing Organization Address City/State/ZIP Code Phon e Number [facility] DEPARTMENT OF PATHOLOGY AND [address] [place] [address] [phone] [address] CBC with platelet and differential (06/02/2019 2:50 AM CUP TRIMMING MACHINE OPERATOR)Only the most recent of2 resultswithin the time period is included. Pathologist Sig nature WBC 10.19 4.50 - 11.00 k/uL [facility] RBC 4.88 4.40 - 6.00 m/uL [facility] HGB 15.5 14.0 - 18.0 g/dL [facility] HCT 47.3 41.0 - 51.0 % [facility] MCV 96.9 82.0 - 100.0 fL [facility] MCH 31.8 27.0 - 34.0 pg [facility] MCHC 32.8 31.0 - 37.0 g/dL [facility] RDW - SD 47.7 37.0 - 55.0 fL [facility] MPV 10.7 8.8 - 13.2 fL [facility] Platelet count 208 150 - 400 k/uL [facility] Nucleated RBC 0.00 /100 WBC [facility] Neutrophils 68.0 39.0 - 69.0 % [facility] Lymphocytes 22.0 (L) 25.0 - 45.0 % [facility] Monocytes 8.0 0.0 - 10.0 % [facility] Eosinophils 2.0 0.0 - 5.0 % [facility] Basophils 0.0 0.0 - 1.0 % [facility] Specimen Blood Performing Organization Address City/[facility] Phon e Number [facility] DEPARTMENT OF PATHOLOGY AND [address] [place] [address] [phone] [address] Basic metabolic panel (06/02/2019 2:50 AM CUP TRIMMING MACHINE OPERATOR) Pathologist Sig nature Sodium 139 135 - 148 mEq/L [facility] Potassium 3.9 3.5 - 5.0 mEq/L [facility] Chloride 102 98 - 112 mEq/L [facility] CO2 24 24 - 31 mEq/L [facility] Anion gap 13@ANIO 7 - 15 mEq/L [facility] BUN 18 8 - 23 mg/dL [facility] Creatinine 1.37 (H) 0.70 - 1.20 mg/dL [facility] Glucose 126 (H) 65 - 99 mg/dL [facility] Calcium 8.9 8.8 - 10.2 mg/dL [facility] Specimen Plasma specimen Performing Organization Address City/[facility] Phon e Number [facility] DEPARTMENT OF PATHOLOGY AND [address] [place] [address] [phone] [address] XR Chest 1 Vw Portable (06/01/2019 7:12 PM CUP TRIMMING MACHINE OPERATOR)Only the most recent of2 results [...] bases . There is no pleural effusion. [id number] Procedure Note Interface, Radiology Results Incoming - 06/01/2019 7:46 PM CUP TRIMMING MACHINE OPERATOR EXAMINATION: XR CHEST 1 VW PORTABLE CLINICAL HISTORY: pneumothorax COMPARISON: 05/31/2019 IMPRESSION: A frontal radiograph of the chest is rev iewed. The cardiomediastinal silhouette is unchanged. There has been interval placement of a left subclavian dual-lead pacemaking device. There is no pneumothorax. Atelectasis is present in the lung bases . There is no pleural effusion. [id number] Performing Organization Address [facility] Phon e Number [facility] [address] [place] [address] ECG Pre/Post Op-Tomorrow (06/01/2019 6:28 PM CUP TRIMMING MACHINE OPERATOR) Pathologist Sig nature Ventricular rate 61 [facility] Atrial rate 61 [facility] WA interval 178 [facility] QRSD interval 206 [...] is no t available. Performing Organization Address [facility] Phon e Number [facility] [address] [place] [address] Electrophysiology procedure (06/01/2019 5:30 PM CUP TRIMMING MACHINE OPERATOR) Pathologist Sig nature Cath EF Estimated 60 % [facility] Specimen Narrative Performed At This result has an attachment that is no t available. Left main normal. LAD with patent proximal stent. LCX normal. RCA dominant [facility] and normal. LVEF normal. No aortic valve disease. Iliac aortagram showed tortuous but no significant maris nosis. Performing Organization Address [facility] Phon e Number [facility] [address] [place] [address], [place] botany laboratory assistant procedure (06/01/2019 5:30 PM CUP TRIMMING MACHINE OPERATOR) Specimen Narrative Performed At This result has an attachment that is no t available. Left main normal. LAD with patent proximal stent. LCX normal. RCA dominant [facility] and normal. LVEF normal. No aortic valve disease. Iliac aortagram showed tortuous but no significant maris nosis. Performing Organization Address [facility] Phon e Number [facility] [address] [place] [address], [place] Type and screen (06/01/2019 12:19 PM CUP TRIMMING MACHINE OPERATOR) Pathologist Sig nature ABO grouping A [facility] Rh type NEG [facility] Antibody screen (gel) NEG [facility] Specimen Blood Performing Organization Address City/[facility] Phon e Number [facility] DEPARTMENT OF PATHOLOGY AND [address] [place] [address] [phone] [address] Troponin (05/31/2019 9:30 PM CUP TRIMMING MACHINE OPERATOR) Pathologist Jovany Troponin 0.008 0.000 - 0.040 [facility] Comment: ng/mL HOSPITAL In patients suspected of [...] ng/mL Specimen Plasma specimen Performing Organization Address City/[facility] Phon e Number [facility] DEPARTMENT OF PATHOLOGY AND [address] [place] [address] [phone] [address] Partial thromboplastin time, activated (05/31/2019 9:30 PM CUP TRIMMING MACHINE OPERATOR) PTT 28.8 23.0 - 36.0 [facility] Comment: [facility] PTT therapeutic range for unfractionated heparin is 61.0-112.0 seconds which corresponds to Anti-Xa 0.3-0.7 U/ml. Specimen Blood Performing Organization Address City/[facility] Phon e Number [facility] DEPARTMENT OF PATHOLOGY AND [address] [place] [address] [phone] [address] Prothrombin time with INR (05/31/2019 9:30 PM CUP TRIMMING MACHINE OPERATOR) Prothrombin time 14.2 11.5 - 14.5 [facility] INR 1.1 [place] Comment: [facility] International Normalized Ratio (INR) is a [facility] monitoring tool for patients who are stable on oral anticoagulant therapy. An INR of 2.0-3.0 is suggested for deep vein thrombosis/pulmonary embolism. Specimen Blood Performing Organization Address [facility] Phon e Number [facility] DEPARTMENT OF PATHOLOGY AND [address] [place] [address] [phone] [address] Thyroid stimulating hormone (05/31/2019 9:30 PM CUP TRIMMING MACHINE OPERATOR) Pathologist Sig [facility] TSH 4.05 0.27 - 4.20 uIU/mL [facility] Specimen Plasma specimen Performing Organization Address [facility] Phon e Number [facility] DEPARTMENT OF PATHOLOGY AND [address] [place] [address] [phone] [address] Phosphorus level (05/31/2019 9:30 PM CUP TRIMMING MACHINE OPERATOR) Pathologist Sig nature Phosphorus 2.9 2.4 - 4.5 mg/dL [facility] L Specimen Plasma specimen Performing Organization Address City/[facility] Phon e Number [facility] DEPARTMENT OF PATHOLOGY AND [address] [place] [address] [phone] [address] Magnesium level (05/31/2019 9:30 PM CUP TRIMMING MACHINE OPERATOR) Pathologist Sig nature Magnesium 2.0 1.6 - 2.4 mg/dL [facility] Specimen Plasma specimen Performing Organization Address City/[facility]/ZIP [facility] Phon e Number [facility] DEPARTMENT OF PATHOLOGY AND [address] [place] [phone] [facility] [address] [place] [address] Comprehensive metabolic panel (05/31/2019 9:30 PM CUP TRIMMING MACHINE OPERATOR) Sodium 142 135 - 148 [facility] mEq/L [facility] Potassium 4.1 3.5 - 5.0 [facility] mEq/L [facility] Chloride 103 98 - 112 mEq/L [facility] CO2 24 24 - 31 mEq/L [facility] Anion gap 15@ANIO 7 - 15 mEq/L [facility] BUN 20 8 - 23 mg/dL [facility] Creatinine 1.38 (H) 0.70 - 1.20 [facility] mg/dL [facility] Glucose 125 (H) 65 - 99 mg/dL [facility] Calcium 9.7 8.8 - 10.2 [facility] mg/dL [facility] Protein 7.6 6.3 - 8.3 g/dL [facility] Comment: HOSPITAL Eyobgje4616.6-7.0 g/dL 1 zifs8658.4-7.6 g/dL 7 months-3trnh592.1-7.3 g/dL 1-2 wxolp074.6-7.5 g/dL >3 bvfni596.0-8.0 g/dL 18-0358861.3-8.3 g/dL Albumin 3.8 3.5 - 5.0 g/dL [facility] A/G ratio 1.0 0.7 - 3.8 [facility] Alkaline phosphatase 116 40 - 129 U/L [facility] AST 32 10 - 50 U/L [facility] ALT 24 5 - 50 U/L [facility] Total bilirubin 0.6 0.0 - 1.2 [facility] mg/dL [facility] Specimen Plasma specimen Performing Organization Address City/State/ZIP Code Phon e Number [facility] DEPARTMENT OF PATHOLOGY AND [address] [place], [place] [phone] [address] ECG 12 lead (05/31/2019 6:59 PM CUP TRIMMING MACHINE OPERATOR) Pathologist Sig nature Ventricular rate [...] Organization Address City/State/ZIP Code Phon e Number [facility] M[facility] [address] [place] [address] after 05/15/2019 Insurance Payer Benefit Plan / Subscriber ID Effective Dates Phone Addre ss Type Group MEDICARE MEDICARE PART A [id number] 1998-Present [place], [place] Medicare AND B BCBS BCBS CHOICE [id number] 2007-Present P PO PPO/[employer] PPO Advance Directives For more information, please contact: [phone] Type Date Recorded 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
--- OUTSIDE RECORDS SUMMARY | 2020-05-15 03:44 | XMS REPORT | Continuity of Care Document ---
:1935 Author Organization [facility] t Address [address] [place] [address] Care Team Providers Name Role Phone Asked, Pcp Primary Care Physician Unavailable Andreia EPPS FCee Attending Clinician Brianna Spence MD Attending Clinician Jose A EPPS V. Attending Clinician Jospehine EPPS Attending Clinician ANDREIA Admitting Clinician Unavailable Payers Payer Name Policy Type Policy Effective Date Expiration Date Sour ce Number MEDICAREMEDICARE PART [id number] 1998 liudmila Cowart AND 00:00:00 [facility] [id number] 1998[place] [place] [id number] 2007 Bear PPO/FEDERAL EMPL 00:00:00 Methodis t [id number] 2007- PresentPPO Problems Condition Condition Condition Status Onset Resolution Last Treating Co mments Source Name Details Category Date Date Treatment Clinician Date Cardiac Cardiac Disease Active Bear arrhythmia arrhythmia 05-31 Mn thodi 00:00: st 00 Allergies, Adverse Reactions, Alerts This patient has no known allergies or adverse reactions. Family History Family Member Diagnosis Comments Start Date Stop Date Source Natural brother Cancer [facility] timothy Natural mother Heart disease Bear [facility] Natural sister Brain cancer [facility] Social History Social Habit Start Date Stop Date Quantity Comments Source History [facility] Meth odist Alcohol Std Drinks History [facility] Meth odist Alcohol Binge Sex Assigned At [facility] ethodist Alcohol intake 2019-06-03 2019-06-03 [facility] thodist 00:00:00 00:00:00 non-drinker (finding) History SDCA 2019-05-31 2019-05-31 1 [facility] Meth odist Alcohol [...] nightly. st 47 gabapentin 2020-0 Yes 100mg [id number] Take 100 Blair (NEURONTIN) 06-02 [id number] mg by M ethodi 100 mg 12:41: [...] blood 2019-06-02 09:00:00 130 mm[Hg] Cabrera n [facility] pressure Diastolic blood 2019-06-02 09:00:00 71 mm[Hg] zIzy on [facility] pressure Heart rate 2019-06-02 09:00:00 66 /min Johnnie Lr Body temperature 2019-06-02 09:00:00 35.94 Hannah Tino Lr Respiratory rate 2019-06-02 09:00:00 20 /min Tino Lr Oxygen saturation in 2019-06-02 09:00:00 96 /min Johnnie Lr Arterial blood by Pulse oximetry Body weight 2019-06-02 04:58:10 100.245 kg Johnnie rL BMI 2019-06-02 04:58:10 33.60 kg/m2 Johnnie Lr Body height 2019-05-31 17:26:17 172.7 cm Johnnie Lr Procedures Procedure Date / Time Performing Clinician Source Performed CBC WITH PLATELET AND 2019-06-02 02:50:00 Natalia Germain DIFFERENTIAL BASIC METABOLIC PANEL 2019-06-02 02:50:00 Natalia Germain ESTIMATED GFR 2019-06-02 02:50:00 Natalia Germain MANUAL DIFFERENTIAL 2019-06-02 02:50:00 Natalia Germain XR CHEST 1 VW PORTABLE 2019-06-01 19:12:51 Parul Vu ECG PRE/POST OP 2019-06-01 18:28:08 Parul Vu [...] Martin PARTIAL THROMBOPLASTIN 2019-05-31 21:30:00 Gina Martin [facility] TIME (PTT) COMPREHENSIVE METABOLIC 2019-05-31 21:30:00 Gina Martin [facility] PANEL MAGNESIUM LEVEL 2019-05-31 21:30:00 Gina Martin [...] Future Scheduled 2019-12-24 INFLUENZA VACCINE [place] [facility] Test 00:00:00 [code = INFLUENZA VACCINE] Future Scheduled 1998 65+ PNEUMOCOCCAL Johnnie [facility] Test 00:00:00 VACCINE (1 of 1 - PPSV23) [code = 65+ PNEUMOCOCCAL VACCINE (1 of 1 - PPSV23)] Future Scheduled 1983 SHINGLES VACCINES (#1) H gab [facility] Test 00:00:00 [code = SHINGLES VACCINES (#1)] Future Scheduled 1949 COVID-19 VACCINE (#1) Ho liudmila [facility] Test 00:00:00 [code = COVID-19 VACCINE (#1)] Encounters Start End Encounter Admission Attending Care Care Encounter Source Date/Time Date/Time Type Type Clinicians Facility Department ID 2019-05-31 2019-06-02 Inpatient ANDREIA [facility] [id number] Johnnie 00:00:00 00:00:00 GINA Yee Method i st Results Test Description Test Time Test Comments Results Result Comments Source ECG Pre/Post Op-Tomorrow 2019-06-02 20:54:15 Test Item Value Reference Range Interpretation Comme nts Ventricular rate (test code = 253) 61 Atrial rate (test code = 255) 61 IL interval (test code = 266) 178 QRSD [...] rhythm-Vent. rate has increased BY 24 BPM- [facility]Cath lab [id number] 16:05:15Left main normal. LAD with patent proximal stent. LCX normal. RCA dominant and normal. LVEF normal. No aortic valve disease. Iliac aortagram showed tortuous but no significant stenosis.[facility] MethodistElectrophysiology [id number] 16:05:14 Test Item Value Reference Range Interpretation Comments Cath EF Estimated 60 % (test code = 3474574524) CURT (test code = CURT) Left main normal. LAD with patent proximal stent. LCX normal. RCA dominant and normal. LVEF normal. No aortic valve disease. Iliac aortagram showed tortuous but no significant stenosis. Blair MethodistCBC with platelet and [id number] 09:47:12 Test Item Value Reference Range Interpretation Comments WBC (test code = 14827-3) 10.19 4.50- 11.00 k/uL RBC (test code = 10338-1) 4.88 m/uL 4.4-6 HGB (test code = 718-7) 15.5 g/dL 14-18 HCT (test code = 4544-3) 47.3 % 41-51 MCV (test code = 787-2) 96.9 fL 82-100 MCH (test code = 785-6) 31.8 pg 27-34 MCHC (test code = 786-4) 32.8 g/dL 31-37 RDW - SD (test code = 84989-3) 47.7 fL 37-55 MPV (test code = 18821-1) 10.7 fL 8.8-13.2 Platelet count (test code = 208 150- 400 k/uL 02049-5) Nucleated RBC (test code = 0.00 /100 WBC 21761-4) Neutrophils (test code = 44329-2) 68.0 % 39-69 Lymphocytes (test code = 12553-5) 22.0 % 25-45 L Monocytes (test code = 95487-9) 8.0 % 0-10 Eosinophils (test code = 03651-3) 2.0 % 0-5 Basophils (test code = 97458-8) 0.0 % 0-1 Lab Interpretation (test code = Abnormal 85275-8) Bear MethodistManual [id number] 09:47:12 Test Item Value Reference Range Interpretation Comments Manual differential (test code = PERFORMED 42184-1) Neutrophils (test code = 68.0 % 39-69 18512-1) Lymphocytes (test code = 22.0 % 25-45 L 22799-0) Monocytes (test code = 30452-9) 8.0 % 0-10 Eosinophils (test code = 2.0 % 0-5 89594-9) Basophils (test code = 63314-7) 0.0 % 0-1 Metamyelocytes (test code = 0 % 740-1) Promyelocytes (test code = 0 % 783-1) Platelet slide review (test code Anival adequate = 39186-8) Lab Interpretation (test code = Abnormal 04815-5) Bear MethodistBasic metabolic [id number] 04:41:31 Test Item Value Reference Range Interpretation Comments Sodium (test code = 2951-2) 139 135- 148 mEq/L Potassium (test code = 2823-3) 3.9 3.5- 5.0 mEq/L Chloride (test code = 2075-0) 102 98- 112 mEq/L CO2 (test code = 2027-9) 24 24- 31 mEq/L Anion gap (test code = 98422-8) 13@ANIO 7- 15 mEq/L BUN (test code = 3094-0) 18 mg/dL 8-23 Creatinine (test code = 2160-0) 1.37 mg/dL 0.7-1.2 H Glucose (test code = 2345-7) 126 mg/dL 65-99 H Calcium (test code = 20293-3) 8.9 mg/dL 8.8-10.2 Lab Interpretation (test code = Abnormal 89380-8) Bear MethodistEstimated [id number] 04:41:30 Test Item Value Reference Range Interpretation Comments Estimated GFR (test 46 mL/min/1.73 m2 Supa willis Units code = 5488) InterpretationG 1 >=90 Maribel l or highG2 60-89 Mildly decrease dG3a 45-59 Mil dly to moderately decr dqfpoY5k 30-44 Moderately to s everely decreasedG4 15-29 Severe ly decreasedG5 <15 Kidney nina lureThe eGFR was calcul ated using the Chron Kidney Disease Epidemiology Collaboration ( CKD-EPI) equation. Interpretation is based on recommendati ons of the [facility]-Kidn ey Disease Outcome s Quality Initiat miracle (NKF-KDOQI) pub lished in 2013. Lab Interpretation Abnormal (test code = 78431-6) Blair MethodistXR Chest 1 Vw [id number] 19:43:18Hm Interface, Radiology Results Incoming - 06/01/2019 7:46 PM CSTEXAMINATION: XR CHEST 1 VW PORTABLECLINICAL HISTORY: pneumothoraxCOMPARISON: 05/31/2019IMPRESSION:A frontal radiograph of the chest isreviewed. The cardiomediastinal silhouette is unchanged. There has been interval placement of a leftsubclavian dual-lead pacemaking device. There is no pneumothorax. Atelectasis is present in the lung bases. There is no pleural effusion.[facility] ASSOCIATIONL-[id number] MethodistType and [id number] 13:29:00 Test Item Value Reference Range Interpretation Comments ABO grouping (test code = 883-9) A Rh type (test code = 72608-4) NEG Antibody screen (gel) (test code = NEG 890-4) Blair MethodistECG 12 [id number] 08:46:14 Test Item Value Reference Range Interpretation [...] MD (1000) on 06/01/2019 8:46:08 AM Johnnie [id number] 22:26:15 Test Item Value Reference Range Interpretation Comments Troponin (test code 0.008 ng/mL 0-0.04 In patie nts suspected = 44273-4) of having a cj cardial infarction, kalli [...] decreased by le ss than 0.020 ng/mL Blair MethodistThyroid stimulating [id number] 22:21:10 Test Item Value Reference Range Interpretation Comments TSH (test code = 3016-3) 4.05 0.27- 4.20 uIU/mL Bear MethodistComprehensive metabolic [id number] 22:15:05 Test Item Value Reference Range Interpretation Comments Sodium (test code = 142 135- 148 mEq/L 2951-2) Potassium (test code = 4.1 3.5- 5.0 mEq/L 2823-3) Chloride (test code = 103 98- 112 mEq/L 2074-0) CO2 (test code = 2027-) 24 24- 31 mEq/L Anion gap (test code = 15@ANIO 7- 15 mEq/L 81834-1) BUN (test code = 3094-0) 20 mg/dL 8-23 Creatinine (test code = 1.38 mg/dL 0.7-1.2 H 2160-0) Glucose (test code = 125 mg/dL 65-99 H 2345-7) Calcium (test code = 9.7 mg/dL 8.8-10.2 10080-6) Protein (test code = 7.6 g/dL 6.3-8.3 Badger 9994.6-7.0 2885-2) g/dL1 byvb3567.4-7.6 g/dL7 months-5detq830 .1- 7.3 g/dL1-2 mnzev030.6-7.5 g/dL>3 .0-8.0 g/yO95-3273824. 3-8 .3 g/dL Albumin (test code = 3.8 g/dL 3.5-5 1751-7) A/G ratio (test code = 1.0 0.7-3.8 1759-0) Alkaline phosphatase 116 U/L 40-129 (test code = 6768-6) AST (test code = 1920-8) 32 U/L 10-50 ALT (test code = 1742-6) 24 U/L 5-50 Total bilirubin (test 0.6 mg/dL 0-1.2 code = 1974-2) Lab Interpretation (test Abnormal code = 69194-6) Bear MethodistMagnesium [id number] 22:15:05 Test Item Value Reference Range Interpretation Comments Magnesium (test code = 88346-7) 2.0 mg/dL 1.6-2.4 Bear MethodistPhosphorus [id number] 22:15:03 Test Item Value Reference Range Interpretation Comments Phosphorus (test code = 2777-1) 2.9 mg/dL 2.4-4.5 Bear MethodistPartial thromboplastin time, [id number] 21:53:28 Test Item Value Reference Range Interpretation Comments PTT (test code = 28.8 23.0- 36.0 [place] [address]-4) unfractionated heparin is61.0-112.0 se conds which corresponds to Anti-Xa0.3-0.7 U/ml. Blair MethodistProthrombin time with [id number] 21:52:44 Test Item Value Reference Range Interpretation Comments Prothrombin time (test 14.2 11.5- 14.5 sec code = 5902-2) INR (test code = 1.1 The Interna tional 93926-5) Normalized Rati o (INR) is a therapeutic m onitoring tool for patien ts who are stable on oral anticoagulant t herapy. An INR of 2.0-3.0 is suggested for d eep vein thrombosis/pulm onary embolism. Johnnie Lr
[2020-05-15 04:27] LABS: Absolute Lymphocytes (CBC) 1.7 K/uL (0.7-4.9); Basophils % 1.3 % (0-1.3); Hematocrit 45.2 % (39.6-49.0); Lymphocytes % 21.2 % (15.3-44.8); MPV 8.1 fL (7.6-11.3); Protime INR 1.04; RBC Red Blood Cell Count 4.74 M/uL (4.33-5.43)
[2020-05-15 04:59] LABS: Albumin 3.7 g/dL (3.4-5.0); Bilirubin Direct 0.2 mg/dL (0-0.2); Bilirubin Total 0.6 mg/dL (0.2-1.0); Magnesium 2.1 mg/dL (1.8-2.4); Potassium 3.9 mmol/L (3.5-5.1); Protein, Total 7.3 g/dL (6.4-8.2); Troponin (Emerg Dept Use Only) 0.03 ng/mL (0.0-0.045)
[2020-05-15] MEDS ORDERED: MORPHINE 4 MG/ML SYR ONE (05:02)
[2020-05-15] MEDS ORDERED: NA CHLORIDE 0.9% 1,000 ML ONE ×2 (05:02→17:56)
[2020-05-15] MEDS ORDERED: LIDOCAINE VISCOUS 2% SOLN 15 ML UDC ONE (05:02)
[2020-05-15] MEDS ORDERED: FAMOTIDINE 20 MG/2 ML VIAL IV ONE (05:02)
[2020-05-15] MEDS ORDERED: ONDANSETRON 4 MG/2 ML VIAL ONE (05:02)
[2020-05-15] MEDS ORDERED: MAGNES/ALUMIN/SIMET 30ML UCUP ONE (05:02)
--- NOTE | 2020-05-15 06:41 | ER ---
Nurse's Notes [facility] Name: Leanna Judge Age: 84 yrs Sex: Male : 1935 Arrival Date: 05/15/2020 Time: 03:56 Bed 8 Private MD: Diagnosis: Chest pain, unspecified Presentation: 05/15 03:50 Chief complaint: EMS states: complaining of chest pain going to his right jaw and right rr5 arm. admitted and discharge last night for the same complaint. 03:50 Coronavirus screen: Client denies travel out of the [place] in the last 14 days. At this rr5 time, the client does not indicate any symptoms associated with coronavirus-19. Ebola Screen: Patient negative for fever greater than or equal to 101.5 degrees Fahrenheit, and additional compatible Ebola Virus Disease symptoms Patient denies exposure to infectious person. Patient denies travel to an Ebola-affected area in the 21 days before illness onset. 03:50 Method Of Arrival: EMS: [facility] rr5 03:50 Acuity: GRACIE 3 rr5 03:50 Initial Sepsis Screen: Does the patient meet any 2 criteria? No. Patient's initial rr5 sepsis screen is negative. Does the patient have a suspected source of infection? No. Patient's initial sepsis screen is negative. Risk Assessment: Do you want to hurt yourself or someone else? Patient reports no desire to harm self or others. Onset of symptoms was May 15, 2020 at 02:00. Care prior to arrival: Medication(s) given: ASA, Nitroglycerin, x 2. Historical: - Allergies: 03:50 No Known Allergies; rr5 - Home Meds: 03:50 allopurinol 100 mg Oral tab 1 tab once daily [Active]; aspirin 81 mg Oral TbEC once rr5 daily [Active]; clopidogrel 75 mg Oral tab once daily [Active]; escitalopram oxalate 10 mg Oral tab 1 tab once daily [Active]; gabapentin 100 mg Oral cap 3 times per day [Active]; nitroglycerin 0.4 mg SL subl 1 tab every 5 minutes [Active]; simvastatin 40 mg Oral tab 1 tab once daily [Active]; valsartan 320 mg Oral tab once daily [Active]; - PMHx: 03:50 Gout; Hyperlipidemia; Myocardial infarction; rr5 - PSHx: 03:50 pacemaker; melanoma surgery; rr5 - Immunization history:: Adult Immunizations up to date. - Social history:: Smoking status: unknown Patient/guardian denies using alcohol, street drugs, The patient lives with family. - Family history:: not pertinent. Screenin:19 Abuse screen: Denies threats or abuse. Denies injuries from another. Nutritional rr5 screening: No deficits noted. Tuberculosis screening: No symptoms or risk factors identified. Fall Risk IV access (20 points). Total Henry Fall Scale indicates No Risk (0-24 pts). Assessment: 03:50 General: Appears in no apparent distress. comfortable, Behavior is calm, cooperative, rr5 appropriate for age. 03:50 Pain: Complains of pain in chest Pain radiates to right jaw and right arm Pain rr5 currently is 6 out of 10 on a pain scale. Quality of pain is described as aching, Pain began gradually, Is intermittent. Neuro: Level of Consciousness is awake, alert, obeys commands, Oriented to person, place, time, situation. Cardiovascular: Reports chest pain, Capillary refill < 3 seconds Patient's skin is warm and dry. Rhythm is Respiratory: Airway is patent Respiratory effort is even, unlabored, Respiratory pattern is regular, symmetrical. GI: No signs and/or symptoms were reported involving the gastrointestinal system. : No signs and/or symptoms were reported regarding the genitourinary system. EENT: No signs and/or symptoms were reported regarding the EENT system. Derm: Skin is intact, is healthy with good turgor, Skin temperature is warm. Musculoskeletal: Circulation, motion, and sensation intact. Capillary refill < 3 seconds. 04:26 Reassessment: Patient appears in no apparent distress at this time. Patient is alert, rr5 oriented x 3, equal unlabored respirations, skin warm/dry/pink. awaiting for results. 05:30 Reassessment: Patient appears in no apparent distress at this time. Patient is alert, rr5 oriented x 3, equal unlabored respirations, skin warm/dry/pink. Patient states symptoms have improved. 06:36 Reassessment: Patient appears in no apparent distress at this time. Patient is alert, rr5 oriented x 3, equal unlabored respirations, skin warm/dry/pink. patient stated the chest pain improved but still have jaw pain. 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 07:00 Reassessment: RECD REPORT FROM MELANIE GOLD. 84YO WM P/W CP, D/C LAST NIGHT AFTER CARDIAC bp W/U, RETURNED LAST PM WITH SAME COMPLAINT. 07:30 Reassessment: US at bedside. jl7 08:00 Reassessment: Attempted to call report, nurse unavailable. sv 08:42 Reassessment: ADMIT COMPLETE, PT ERINN. bp Vital Signs: 03:50 BP 147 / 80; Pulse 61; Resp 19; Temp 97.5; Pulse Ox 99% ; Weight 99.79 kg; Height 5 ft. rr5 8 in. (172.72 cm); Pain 6/10; 04:19 BP 146 / 80; Pulse 63; Resp 17; Pulse Ox 99% ; rr5 05:20 BP 151 / 80; Pulse 69; Resp 15; Pulse Ox 98% ; rr5 06:35 BP 158 / 77; Pulse 67; Resp 19; Pulse Ox 96% ; rr5 07:30 BP 151 / 83; Pulse 71; Resp 17; Pulse Ox 95% ; jl7 08:30 BP 147 / 81; Pulse 71; Resp 22; Pulse Ox 96% ; bp 03:50 Body Mass Index 33.45 (99.79 kg, 172.72 cm) rr5 ED Course: 03:50 EKG done, by ED staff, reviewed by Pedro Khan MD. rr5 03:50 Patient has correct armband on for positive identification. Placed in gown. Bed in low rr5 position. Call light in reach. Side rails up X2. 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 Pulse ox on. NIBP on. 03:55 Arm band placed on right wrist. rr5 03:56 Patient arrived in ED. rr5 03:56 Pedro Khan MD is Attending Physician. ma2 04:00 Triage completed. rr5 04:15 Melanie Little RN is Primary Nurse. rr5 04:15 Inserted saline lock: 20 gauge in right hand, using aseptic technique. Blood collected. rr5 04:19 XRAY Chest (1 view) In Process Unspecified. EDMS 04:21 No provider procedures requiring assistance completed. Patient maintains SpO2 rr5 saturation greater than 95% on room air. 06:40 Evangelista Graham MD is Hospitalizing Provider. ma2 07:07 Primary Nurse role handed off by Melanie Little, ASIF bp 07:07 Buster Palafox, RN is Primary Nurse. bp 08:19 Patient admitted, IV remains in place. intact. sv Administered Medications: 04:50 Drug: Pepcid 10 mg Route: IVP; Site: right hand; rr5 08:43 Follow up: Response: No adverse reaction bp 04:50 Drug: NS 0.9% 1000 ml Route: IV; Rate: 1 bolus; Site: right hand; rr5 08:43 Follow up: IV Status: Completed infusion; IV Intake: 1000ml bp 04:52 Drug: GI Cocktail without - (Maalox Suspension 30 ml, Lidocaine Liquid 2 % 15 rr5 ml) Route: PO; 08:43 Follow up: Response: No adverse reaction bp 04:54 Drug: Zofran (Ondansetron) 4 mg Route: IVP; Site: right hand; rr5 08:44 Follow up: Response: Nausea is decreased bp 05:00 Drug: morphine 4 mg {Note: rass 0.} Route: IVP; Site: right hand; rr5 08:44 Follow up: Response: Pain is decreased bp Intake: 08:43 IV: 1000ml; Total: 1000ml. bp Outcome: 06:40 Decision to Hospitalize by Provider. ma2 08:30 Admitted to Tele accompanied by tech, via wheelchair, room 230, with chart, Report sv called to Elyse GOLD 08:30 Condition: stable 08:30 Instructed on the need for admit. 08:44 Patient left the ED. bp Signatures: Dispatcher [employer] EDKristin Hawkins RN ASIF Manuel Gonzales, RN RN jl7 Buster Palafox, RN RN bp Pedro Khan MD MD wa2 Melanie Little, RN RN rr5
--- NOTE | 2020-05-15 06:41 | EDPHYS ---
Physician Documentation [facility] Name: Leanna Judge Age: 84 yrs Sex: Male : 1935 Arrival Date: 05/15/2020 Time: 03:56 Bed 8 Private MD: ED Physician Pedro Khan HPI: 05/15 04:46 This 84 yrs old Male presents to ER via EMS with complaints of Chest Pain. ma2 04:46 The patient or guardian reports chest pain that is located primarily in the anterior ma2 aspect of right upper chest and right breast. Onset: gradually, 2 day(s) ago. Associated signs and symptoms: Pertinent negatives: cough, dizziness, lower extremity swelling, lightheadedness. Severity of pain: At its worst the pain was moderate in the emergency department the pain is unchanged. The patient has experienced similar episodes in the past. Historical: - Allergies: 03:50 No Known Allergies; rr5 - Home Meds: 03:50 allopurinol 100 mg Oral tab 1 tab once daily [Active]; aspirin 81 mg Oral TbEC once rr5 daily [Active]; clopidogrel 75 mg Oral tab once daily [Active]; escitalopram oxalate 10 mg Oral tab 1 tab once daily [Active]; gabapentin 100 mg Oral cap 3 times per day [Active]; nitroglycerin 0.4 mg SL subl 1 tab every 5 minutes [Active]; simvastatin 40 mg Oral tab 1 tab once daily [Active]; valsartan 320 mg Oral tab once daily [Active]; - PMHx: 03:50 Gout; Hyperlipidemia; Myocardial infarction; rr5 - PSHx: 03:50 pacemaker; melanoma surgery; rr5 - Immunization history:: Adult Immunizations up to date. - Social history:: Smoking status: unknown Patient/guardian denies using alcohol, street drugs, The patient lives with family. - Family history:: not pertinent. ROS: 04:46 Constitutional: Negative for fever, chills, and weight loss. ma2 04:46 All other systems are negative. Exam: 04:46 Constitutional: This is a well developed, well nourished patient who is awake, alert, ma2 and in no acute distress. Chest/axilla: Normal chest wall appearance and motion. Nontender with no deformity. No lesions are appreciated. Cardiovascular: Regular rate and rhythm with a normal S1 and S2. No gallops, murmurs, or rubs. Normal PMI, no JVD. No pulse deficits. Respiratory: Lungs have equal breath sounds bilaterally, clear to auscultation and percussion. No rales, rhonchi or wheezes noted. No increased work of breathing, no retractions or nasal flaring. Abdomen/GI: Soft, non-tender, with normal bowel sounds. No distension or tympany. No guarding or rebound. No evidence of tenderness throughout. Neuro: Awake and alert, GCS 15, oriented to person, place, time, and situation. Cranial nerves II-XII grossly intact. Motor strength 5/5 in all extremities. Sensory grossly intact. Cerebellar exam normal. Normal gait. Vital Signs: 03:50 BP 147 / 80; Pulse 61; Resp 19; Temp 97.5; Pulse Ox 99% ; Weight 99.79 kg; Height 5 ft. rr5 8 in. (172.72 cm); Pain 6/10; 04:19 BP 146 / 80; Pulse 63; Resp 17; Pulse Ox 99% ; rr5 05:20 BP 151 / 80; Pulse 69; Resp 15; Pulse Ox 98% ; rr5 06:35 BP 158 / 77; Pulse 67; Resp 19; Pulse Ox 96% ; rr5 07:30 BP 151 / 83; Pulse 71; Resp 17; Pulse Ox 95% ; jl7 08:30 BP 147 / 81; Pulse 71; Resp 22; Pulse Ox 96% ; bp 03:50 Body Mass Index 33.45 (99.79 kg, 172.72 cm) rr5 MDM: 03:56 Patient medically screened. ma2 04:46 Differential diagnosis: anxiety, coronary artery disease chest wall pain, congestive ma2 heart failure cholecystitis. 04:47 The patient was not given aspirin in the Emergency Department. Patient reports taking mi2 aspirin within the past 24 hours. 06:39 ERLIN Risk Score: 1 - Three or more CAD risk factors, 1- Known CAD, 1 - ASA use in past ma2 7 days. 06:39 Data reviewed: vital signs, nurses notes. Counseling: I had a detailed discussion with ma2 the patient and/or guardian regarding: the historical points, exam findings, and any diagnostic results supporting the discharge/admit diagnosis, the presence of at least one elevated blood pressure reading (>120/80) during this emergency department visit, the need for further work-up and treatment in the hospital. ED course: discussed with dr. gamboa. 05/15 03:57 Order name: Basic Metabolic Panel; Complete Time: 05:40 ma2 05/15 03:57 Order name: CBC with Diff; Complete Time: 04:38 ma2 05/15 03:57 Order name: LFT's; Complete Time: 05:40 ma2 05/15 03:57 Order name: Magnesium; Complete Time: 05:40 ma2 05/15 03:57 Order name: NT PRO-BNP; Complete Time: 05:40 ma2 05/15 03:57 Order name: PT-INR; Complete Time: 05:40 ma2 05/15 03:57 Order name: Troponin (emerg Dept Use Only); Complete Time: 05:40 ma2 05/15 06:45 Order name: Basic Metabolic Panel EDMS 05/15 06:45 Order name: Basic Metabolic Panel EDMS 05/15 06:45 Order name: CBC with Automated Diff EDMS 05/15 06:45 Order name: CBC with Automated Diff EDMS 05/15 06:45 Order name: Troponin I EDMS 05/15 06:45 Order name: Troponin I EDMS 05/15 06:45 Order name: Troponin I EDMS 05/15 03:57 Order name: XRAY Chest (1 view) ma2 05/15 03:57 Order name: EKG; Complete Time: 03:58 ma2 05/15 03:57 Order name: Cardiac monitoring; Complete Time: 04:22 ma2 05/15 03:57 Order name: EKG - Nurse/Tech; Complete Time: 04:22 ma2 05/15 03:57 Order name: IV Saline Lock; Complete Time: 04:22 ma2 05/15 06:45 Order name: CONS Physician Consult EDMS 05/15 06:45 Order name: EKG Electrocardiogram EDMS 05/15 06:45 Order name: EKG Electrocardiogram EDMS 05/15 06:45 Order name: EKG Electrocardiogram EDMS 05/15 06:45 Order name: EKG Electrocardiogram EDMS 05/15 06:46 Order name: NPO EDMS 05/15 03:57 Order name: Labs collected and sent; Complete Time: 04:22 ma2 05/15 03:57 Order name: O2 Per Protocol; Complete Time: 04:22 ma2 05/15 03:57 Order name: O2 Sat Monitoring; Complete Time: 04: mi2 05/15 06:40 Order name: NPO; Complete Time: 06:51 ma2 Administered Medications: 04:50 Drug: Pepcid 10 mg Route: IVP; Site: right hand; rr5 08:43 Follow up: Response: No adverse reaction bp 04:50 Drug: NS 0.9% 1000 ml Route: IV; Rate: 1 bolus; Site: right hand; rr5 08:43 Follow up: IV Status: Completed infusion; IV Intake: 1000ml bp 04:52 Drug: GI Cocktail without - (Maalox Suspension 30 ml, Lidocaine Liquid 2 % 15 rr5 ml) Route: PO; 08:43 Follow up: Response: No adverse reaction bp 04:54 Drug: Zofran (Ondansetron) 4 mg Route: IVP; Site: right hand; rr5 08:44 Follow up: Response: Nausea is decreased bp 05:00 Drug: morphine 4 mg {Note: rass 0.} Route: IVP; Site: right hand; rr5 08:44 Follow up: Response: Pain is decreased bp Disposition: 05/15/20 06:40 Hospitalization ordered by Evangelista Gamboa for Observation. Preliminary diagnosis is Chest pain, unspecified. - Bed requested for Telemetry/MedSurg (observation). - Status is Observation. bp - Condition is Stable. - Problem is new. - Symptoms are unchanged. Signatures: Dispatcher [employer] EDFlower Reynolds RN RN dw Buster Palafox RN RN Pdero Deng MD MD [facility] Rishi Little, RN RN rr5 Corrections: (The following items were deleted from the chart) 07:33 06:40 Hospitalization Ordered by Evangelista Gamboa MD for Observation. Preliminary diagnosis dw is Chest pain, unspecified. Bed requested for Telemetry/MedSurg (observation). Status is Observation. Condition is Stable. Problem is new. Symptoms are unchanged. mi2 08:44 07:33 05/15/2020 06:40 Hospitalization Ordered by Evangelista Gamboa MD for Observation. bp Preliminary diagnosis is Chest pain, unspecified. Bed requested for Telemetry/MedSurg (observation). Status is Observation. Condition is Stable. Problem is new. Symptoms are unchanged. dw
[2020-05-15] MEDS ORDERED: ONDANSETRON 4 MG/2 ML VIAL IV PRN (06:42)
--- NOTE | 2020-05-15 07:48 | RAD REPORT ---
EXAM DESCRIPTION: Gino Single View05/15/2020 4:19 am CLINICAL HISTORY: Chest pain COMPARISON: May 13, 2020 FINDINGS: The lungs appear clear of acute infiltrate. The heart is mildly enlarged. Pacemaker leads are in place. IMPRESSION: No acute abnormalities displayed
--- NOTE | 2020-05-15 08:59 | RAD REPORT ---
EXAM DESCRIPTION: US - Abdomen Exam Complete - 05/15/2020 7:43 am CLINICAL HISTORY: Abdominal pain COMPARISON: 2019 FINDINGS: The liver has an increased echotexture. Gallbladder is borderline distended. The gallbladder wall measures 5 millimeters. A stone is not seen within the gallbladder fundus. Evaluation of the gallbladder neck is limited secondary technical fac tors. Sludge is present within the gallbladder neck. The biliary tree is normal caliber Limited evaluation of the pancreas, abdominal aorta and IVC secondary to overlying bowel gas The right kidney measures 10 centimeters with a normal echotexture. A 1 centimeter cyst The left kidney measures 12 centimeters with a normal echotexture. 3.1 cyst The spleen measures 9 centimeters. IMPRESSION: Increased hepatic echotexture consistent with fatty infiltration Borderline gallbladder distention. Thickening of the gallbladder wall may indicate cholecystitis or b e related to hypoalbuminemia. Sludge is present within the gallbladder neck. Evaluation for small gal lstones within the gallbladder neck is limited secondary to technical factors. If clinically indicate d further evaluation with nuclear medicine HIDA scan may be helpful
[2020-05-15] MEDS: MORPHINE 4 MG/ML SYR IV PRN ×2 (09:23→14:25)
[2020-05-15] MEDS: METOPROLOL XL 25 MG TAB PO SCH (09:24)
[2020-05-15] MEDS: ASPIRIN EC 81 MG TAB PO SCH (09:25)
[2020-05-15 11:05] VITALS: BMI 32.5
[2020-05-15] MEDS ORDERED: ENOXAPARIN 40 MG/0.4 ML SQ ONE (11:30)
[2020-05-15] MEDS ORDERED: ENOXAPARIN 80 MG/0.8 ML SQ ONE (11:31)
[2020-05-15] MEDS: NA CHLORIDE 0.9% 1,000 ML IV SCH (11:34)
[2020-05-15] MEDS: VALSARTAN 160 MG TAB PO SCH (11:34)
[2020-05-15] MEDS ORDERED: NITROGLYCERIN 1 GM PKT TD SCH (12:00)
[2020-05-15] MEDS ORDERED: ACETYLCYST 20% 800 MG/4 ML VIAL PO ONE (14:15)
[2020-05-15] MEDS ORDERED: HEPA 1000U/500MLS 1,000 UNIT/500 ML BAG IV ONE (15:41)
[2020-05-15] MEDS ORDERED: LIDOCAINE 1% 20 ML MDV ONE (15:41)
[2020-05-15] MEDS ORDERED: NA CHLORIDE 0.9% 50 ML ONE (16:20)
[2020-05-15] MEDS ORDERED: NITROGLYCERIN 100 MCG/ML SYR (for cath lab use only) IV ONE (16:20)
[2020-05-15] MEDS ORDERED: ATROPINE SULF 1 MG/10 ML SYR IV ONE (16:20)
[2020-05-15] MEDS ORDERED: FENTANYL CITR 100 MCG/2 ML ONE (16:20)
[2020-05-15] MEDS ORDERED: MIDAZOLAM HCL 2 MG/2 ML INJ ONE (16:20)
[2020-05-15] MEDS ORDERED: CLOPIDOGREL 75 MG TABLET ONE (17:11)
[2020-05-15] MEDS ORDERED: ATORVASTATIN 80 MG TAB PO SCH (21:00)
[2020-05-15 22:09] VITALS: O2SAT 93
--- NOTE | 2020-05-15 22:12 | HP ---
Date of Admission: 05/15/2020 Chief Complaint: Chest pain. History Of Present Illness: This is an 84-year-old male patient who was admitted and discharged yesterday from hospital. He came in yesterday with right scapular pain radiating around to the right anterior chest wall area. He was kept on telemetry. AK was ruled out by getting serial cardiac enzymes, and he was asymptomatic, and later, he was seen by carrier packer, Dr. Bhakta who suggested for patient to have outpatient cardiac workup done. Later on yesterday evening time, the patient requested to go home, and he was discharged to go home in stable condition. He was doing fine until the middle of the night. He woke up with this same pain that started from the right scapular region to right anterior chest and the difference this time was that it started radiating up to his neck and jaw area, had some shortness of breath and little cold and clammy feeling with this. With this complaints, he came to emergency room. After he was evaluated, he was admitted to the hospital. When I saw him this morning, he was lying in bed in the emergency room. His was with him at bedside. Allergies: NO KNOWN ALLERGIES. Medications: Allopurinol 100 mg daily, amitriptyline 25 mg at bedtime, aspirin 81 mg daily, gabapentin 100 mg 3 times a day, Nitrostat p.r.n., oxybutynin 10 mg daily, simvastatin 40 mg daily in the evening, valsartan 160 mg daily. Review of Systems: Cardiovascular: As mentioned above. All other systems reviewed and negative. 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 Shrestha; and anxiety problem. Past Surgical History: Significant for coronary artery stent placement in 2007; pacemaker placement on June 01, 2019; excision of melanoma from scalp, January 18, 2020, and February 10, 2020; and radiofrequency ablation procedure. Family History: Parents and brother both had heart disease. Brother also had throat cancer. Sister had heart disease as well. Social History: Negative for smoking and alcohol use. Physical Examination: Vital Signs: This morning, his initial temperature 97.6, pulse 67, respiratory rate 18, blood pressure 167/89, oxygen saturation 98%. Height 5 feet 9 inches, weight 220 pounds. General: Awake, alert, oriented, not in distress. HEENT: Head atraumatic, normocephalic. Conjunctivae nonerythematous. Sclerae white. Mouth, no thrush or edema noted. Ears/Nose, no mass, lesion, discharge noted. Neck: Supple. No JVD, lymph nodes, bruit, thyromegaly noted. Lungs: Bilateral good equal air entry. Clear to auscultation. No rhonchi. No rales. Heart: Normal heart sounds, no murmur or gallop. Abdomen: Soft, bowel sounds normal. No guarding, rigidity, tenderness, mass, hepatosplenomegaly, distention, or bruit noted. Extremities: No leg edema. No calf tenderness. Skin: No rash, ulcer, cellulitis. Lymphatics: No lymph node enlargement in neck, supraclavicular, infraclavicular region. Neuro: No focal neurological deficit. Chest: Unremarkable. External Genitalia: Deferred. Rectal: Deferred. Laboratory Data: White count 8.2, hemoglobin 15.3, platelets 230. INR 1.04. Sodium 137, potassium 3.9, chloride 104, bicarb 27, BUN 22, creatinine 1.40, glucose 122. Liver function tests unremarkable. Initial troponin 0.03, second troponin 0.52, third troponin 5.46. Chest x-ray done this morning, no acute cardiopulmonary changes. EKG shows no acute ST-T changes. Abdominal ultrasound, which was done today shows evidence of fatty liver disease with some borderline gallbladder distention, thickening of the gallbladder wall, which might be due to either cholecystitis or hypoalbuminemia. Clinically, the patient does not seem to have any cholecystitis problem. Sludge present within the gallbladder neck. Impression: 1. Non-ST segment elevation myocardial infarction. 2. Coronary artery disease. 3. Hypertension. 4. Mixed hyperlipidemia. 5. Osteoarthritis, multiple sites. 6. Gout. 7. Type 2 diabetes mellitus. 8. Melanoma of scalp. Plan: Patient will be admitted to hospital for further evaluation and management of this problem. The patient is appropriate for inpatient and is expected to spend 2 midnights in hospital. We will continue his medications per order. Aspirin was given. This morning, I started him on metoprolol and also gave him 1 dose of Lovenox before this second and third set of cardiac enzymes came back. I did talk to Dr. Breen and originally plan was to go ahead and do cardiac cath tomorrow considering his unstable angina type of symptoms that he came in with, but after his cardiac enzymes came back positive, we determined that the patient was actually having a non-ST elevation myocardial infarction, and with that, Dr. Breen decided to take him to cardiac cath later today, which was done late afternoon today, and Dr. Breen called and informed me that the patient has 100% RCA occlusion, and he was able to place 2 stents there and rest of the coronaries are normal. The patient is medically stable right now. We will continue current medical management. I will see him tomorrow for followup. JEFF/JORGE Voice ID: [id number] RENATO
[2020-05-16] MEDS: NA CHLORIDE 0.9% 1,000 ML IV SCH (03:21)
[2020-05-16 04:28] LABS: Absolute Lymphocytes (CBC) 1.7 K/uL (0.7-4.9); Basophils % 0.8 % (0-1.3); Hematocrit 39.6 % (39.6-49.0); Lymphocytes % 19.4 % (15.3-44.8); MPV 8.3 fL (7.6-11.3); RBC Red Blood Cell Count 4.16 M/uL (4.33-5.43)
[2020-05-16 04:41] LABS: Potassium 4.1 mmol/L (3.5-5.1)
[2020-05-16] MEDS ORDERED: CLOPIDOGREL 75 MG TABLET PO ONE (07:23)
[2020-05-16] MEDS: ASPIRIN EC 81 MG TAB PO SCH (08:44)
[2020-05-16] MEDS: VALSARTAN 160 MG TAB PO SCH (08:44)
[2020-05-16] MEDS: METOPROLOL XL 25 MG TAB PO SCH (08:47)
[2020-05-16 08:48] VITALS: BP 127/60
[2020-05-16 09:03] VITALS: TEMP 97.3
--- NOTE | 2020-05-17 08:11 | DS ---
Date of Discharge: 05/16/2020 Disposition: Discharged to go home. Physical Examination: HEENT: Unremarkable. Lungs: Clear to auscultation. Heart: Sounds normal. Abdomen: Soft. Bowel sounds normal. No guarding, rigidity, tenderness, or distention. Extremities: No leg edema. Right groin exam has dressing present. No evidence of any hematoma or b leeding. No other abnormality noted and this is the site for cardiac catheterization. Laboratory Data: Upon admission; white count 8.2, hemoglobin 15.3, platelets 230. Today white count 8.8, hemoglobin 13.8, platelets 201. Upon admission; sodium 137, potassium 3.9, chloride 104, bicar b 22, BUN 22, creatinine 1.40, glucose 122. Initial troponin 0.03. Highest troponin 5.46. Repeat c hemistry today BUN 20, creatinine 1.28, sodium 138, potassium 4.1, chloride 106, bicarb 26, glucose 1 13. Discharge Medication And Instruction: Continue all prior home medications except stop simvastatin an d start atorvastatin 80 mg p.o. daily at bedtime, Clopidogrel 75 mg p.o. daily, metoprolol succinate 25 mg p.o. daily. Follow up at my office next week on Thursday. Hospital Course: 84-year-old male patient admitted to the hospital with chest pain complaints. See dictated H and P for more information. The patient was evaluated in the ER. He was admitted to the hospital. Cardiology consultation was obtained from Dr. Breen. Because of the patient's troponin going up and having chest pain. Instead of during cardiac catheterization, next day, Dr. Breen dec ided to do cardiac catheterization on the same day and found out that the patient had 100% RCA and he was able to successfully put 2 stents in RCA and the patient now has remained stable, asymptomatic, and feeling fine. The patient's gallbladder ultrasound was done. There was no evidence of any acute cholecystitis. Clinically, no need for any further intervention there. The patient was advised to come to office upon discharge to cone picker list of medications from office and his prescriptions were s ent to his pharmacy from the office. Final Diagnoses: 1.Oit-PF-nxkkritwf myocardial infarction. 2.Coronary artery disease. 3.Hypertension. 4.Mixed hyperlipidemia. 5.Type 2 diabetes mellitus. 6.Osteoarthritis, multiple sites. 7.Melanoma of scalp. 8.Gout. JEFF/MODL Voice ID: [id number] Report ID: [id number]
--- NOTE | 2020-05-20 10:53 | CON ---
Date of Consultation: 05/15/2020 The patient admitted to Dr. Graham on 05/15/2020. He was seen on 05/15/2020. Reason For Consultation: Unstable angina. History Of Present Illness: Mr. Judge is an 84-year-old male, who was just discharged on 0, came back with substernal chest pressure, radiating to his both arms with diaphoresis, shortness o f breath. Workup so far has shown a negative chest x-ray, possible cholecystitis with some sludge in the gallbladder. HIDA scan had been recommended. EKG showed nonspecific changes. Troponin was neg ative at first draw. The patient denied PND, orthopnea, pedal edema, palpitations, or syncope. Lc ed any fever or chills. Past Medical History: History includes dyslipidemia, hypertension, neuropathy, and gout. Review of Systems: Negative. Social History: Negative. Allergies: NONE. Review of Systems: Negative. Medications: Include allopurinol, aspirin, Lexapro, Neurontin, valsartan, and Zocor. Physical Examination: Vital Signs: Stable, afebrile. HEENT: Negative. Neck: Supple with no bruit. Chest: Clear to auscultation and percussion. Cardiac: Normal. Abdomen: Benign. Extremities: Revealed no clubbing, cyanosis, or edema. Diagnostic Data: As stated earlier. His creatinine is 1.4. Impression And Plan: 1.Unstable angina. 2.Gout. 3.Depression. 4.Neuropathy. 5.Hypertension. 6.Dyslipidemia. 7.Possible cholecystitis. 8.Renal insufficiency. I think we need to give him some Mucomyst. I think he needs to have a heart catheterization as soon as possible to rule out coronary artery disease. The case was discussed wit h Dr. Graham. The patient understands the risk and the benefits of the procedure and he agreed to proc eed. NANCY/MODL Voice ID: [id number] Report ID: [id number]
--- NOTE | 2020-05-20 11:47 | PN ---
Date of Progress Note: 05/16/2020 Mr. Judge came in on 05/15/2020 with unstable angina. Underwent an emergency RCA total occlusion a ngioplasty and stent. Overnight, he did well. He has no chest pain and no shortness of breath. Tel emetry showed normal sinus rhythm. His examination showed clear chest. His right groin was intact w ith no hematoma and good distal pulses. He can go home today, status post primary angioplasty and st ent of the RCA that was totally occluded for unstable angina, non-STEMI. He will be going home on as pirin, beta more, statin, and Plavix, and I will see him in the office in 2 weeks. The case was d iscussed with Dr. Graham. NANCY/JORGE Voice ID: [id number] Report ID: [id number]
--- NOTE | 2020-05-20 12:08 | OP ---
Date of Procedure: 05/15/2020 Surgeon: Thai Breen MD Supervisor Painting Department: Erwin Montez. The patient will remain in the hospital overnight after Angio-Seal closure of his right groin. He wi ll be on aspirin, Plavix, statin, beta blockers when he goes home. During the procedure, he received aspirin, Effient and Angiomax. The case was discussed with the patient and the family with Dr. Graham . He will remain in the hospital overnight and I will see in the morning before discharge. Indication: Unstable angina. Mr. Judge is 84, was admitted with unstable angina, creatinine 1.4. Mucomyst was given. Procedure In Detail: He was brought to the labview programmer rather urgently as an inpatient. He was prepped and draped in the routine sterile fashion. He was given Versed for sedation. Using the Seldinger t echnique, a 10 cc of Xylocaine was used in the right groin and a 6-Urdu sheath was introduced in th e right common femoral artery. Angiography revealed normal left main and circumflex with some mild p laquing only in the LAD. That was done with a JL4. The JL4 catheter then introduced on the RCA was noted to be completely occluded, appeared to be a pressure occlusion. We exchanged that catheter to a JR4 6-Urdu with side holes. A Beatty wire was used to cross the lesion into the distal RCA succe ssfully. Following that, we used a 2.5 x 15 Emerge balloon and dilated all across the mid RCA to the distal RCA. Angiography then showed patent RCA with stenosis in the mid RCA. We decided to put too long stent as the stenosis was very long. We put a 3.0 x 16 and a 3.0 x 20 overlapped Synergy stent with 0% residual. The patient tolerated the procedure very well. There were no complications. Blo od loss was 5 mL. Total conscious sedation was 60 minutes. Final Diagnoses: Unstable angina, coronary artery disease, total occlusion of the RCA, status post a ngioplasty and stent in the mid and distal RCA. The patient tolerated the procedure well. NANCY/ZULAYL Voice ID: [id number] Report ID: [id number]
== END 2020-05-16 09:16 | disposition home or self-care (01) | DRG 247 ==
LOC: ER 03:40 → ERHOLD 06:46 → 2ND 08:32 → OBSVTOIN 11:30
PROVIDERS: ADMIT Internal Medicine; ATTEND Internal Medicine
PROC: 027035Z Dilation of Coronary Artery, One Artery with Two Drug-eluting Intraluminal Devices, Percutaneous Approach (ICD-10-PCS; principal; 2020-05-15)
PROC: 4A023N7 Measurement of Cardiac Sampling and Pressure, Left Heart, Percutaneous Approach (ICD-10-PCS; 2020-05-15)
PROC: B2111ZZ Fluoroscopy of Multiple Coronary Arteries using Low Osmolar Contrast (ICD-10-PCS; 2020-05-15)
DX: I21.4 Non-ST elevation (NSTEMI) myocardial infarction (principal); I25.110 Atherosclerotic heart disease of native coronary artery with unstable angina pectoris; M10.9 Gout, unspecified; M19.90 Unspecified osteoarthritis, unspecified site; F32.9 Major depressive disorder, single episode, unspecified; E11.40 Type 2 diabetes mellitus with diabetic neuropathy, unspecified; N28.9 Disorder of kidney and ureter, unspecified; E78.2 Mixed hyperlipidemia; K76.0 Fatty (change of) liver, not elsewhere classified; C43.4 Malignant melanoma of scalp and neck; I25.2 Old myocardial infarction; Z95.5 Presence of coronary angioplasty implant and graft; Z79.899 Other long term (current) drug therapy; Z79.02 Long term (current) use of antithrombotics/antiplatelets; Z95.0 Presence of cardiac pacemaker; Z79.82 Long term (current) use of aspirin
CPT/HCPCS: 36415; 71045; 72070; 76700; 80048; 80076; 81003; 81015; 83735; 83880; 84484; 85025; 85347; 85610; 93005; 93454; 96361; 96374; 96375; 99285; C1725; C1760; C1893; C9600; J0583; J1644; J2250; J2270; J2405; J3010; J7030; U0003

== ENCOUNTER 2020-05-26 04:41 | Emergency (ER) | payer OTHER, BC ==
--- OUTSIDE RECORDS SUMMARY | 2020-05-26 04:43 | XMS REPORT | Clinical Summary ---
:1935 Author Organization [facility] Address [address] [place] [address] Care Team Providers Name Role Phone Asked, [...] Burton, Eneida p sylvia Cardiology pulse generator [87032 (CPT)] 05/31/2019 - Hospital Encounter Cardiology Tano Martin, 06/02/2019 MD after 05/26/2019 Surgical History Surgery Date Site/Laterality Comments CARDIAC SURGERY CARDIAC ELECTROPHYSIOLOGY 06/01/2019 Left Proced ure: Insertion PROCEDURE pacemaker pulse generator; Surgeon: Lilia Burton MD; Location: [facility] [facility] at[facility]; Service: Cardiol ogy; Laterality: Left ; Medical devices from this surgery are in t he Implants section . CARDIAC CATHETERIZATION 06/01/2019 N/A Procedur e: CV LEFT HEART CATH LV GRAM WIT H CORS; Surgeon: Lilia Burton MD; Location: [facility] [employer] [facility] In[facility] ation; Service: Cardiol ogy; Laterality: [...] Comments Blood Pressure 130/71 06/02/2019 9:00 AM MOTOR LODGE CLERK Pulse 66 06/02/2019 9:00 AM MOTOR LODGE CLERK Temperature 35.9 C (96.7 F) 06/02/2019 9:00 AM MOTOR LODGE CLERK Respiratory Rate 20 06/02/2019 9:00 AM MOTOR LODGE CLERK Oxygen Saturation 96% 06/02/2019 9:00 AM MOTOR LODGE CLERK Inhaled Oxygen Concentration - - Weight 100 kg (221 lb) 06/02/2019 4:58 AM MOTOR LODGE CLERK Height 172.7 cm (5' 8") 05/31/2019 5:26 PM MOTOR LODGE CLERK Body Mass Index 33.6 05/31/2019 5:26 PM MOTOR LODGE CLERK Plan of Treatment Health Maintenance Due Date Last Done Comments COVID-19 VACCINE (#1) 1951 SHINGLES VACCINES (#1) 1983 65+ PNEUMOCOCCAL VACCINE (1 of 1 - PPSV23) 1998 INFLUENZA VACCINE 12/24/2019 Implants Implanted Type Area Reinforcing Steel Worker Device Shelf Model / Identifier Expiration Serial / Date Lot Accolade Mri Pacemaker - [id number] Cardiac Pacemaker N/A: B OSTON 03/24/2021 [id number] / Implanted: 06/01/2019 at [facility] (Quantity not on file) Gen erators N/A SCIENTIFIC- CRM [id number] / [id number] Ingevity Mri Pacing Lead 52cm - [id number] Cardiac Pacing N/A: BOSTON 04/29/2021 [id number] / Implanted: 06/01/2019 at [facility] (Quantity not on file) Rocio ds or N/A SCIENTIFIC- CRM [id number] / Electrodes or [id number] Accessories Ingevity Mri Pacing Lead Is-1 Bipolar 59cm - [id number] Cardiac Pacing N/A: BOSTON 05/01/2021 [id number] / Implanted: 06/01/2019 at [facility] (Quantity not on file) Rocio ds or N/A [employer] CRM [id number] / Electrodes or [id number] Accessories Envlp Impl Crdvrtr Dfb Antbctrl Fully Resorb Lg Aigiss rx R - [id number] Cardiovascular N/A: [employer] [id number] / Implanted: 06/01/2019 at [facility] (Quantity not on file) Implants N/A / Procedures Procedure Name Priority Date/Time Associated Comments Diagnosis MANUAL DIFFERENTIAL Routine 06/02/2019 2:50 Resu lts for this AM MOTOR LODGE CLERK procedure are i n the results section. ESTIMATED GFR Routine 06/02/2019 2:50 Results fo r this AM [employer]OR LODGE CLERK procedure are i n the results section. BASIC METABOLIC PANEL Routine 06/02/2019 2:50 Re sults for this AM [employer]OR LODGE CLERK procedure are i n the results section. CBC WITH PLATELET AND Routine 06/02/2019 2:50 Re sults for this DIFFERENTIAL AM [employer]OR LODGE CLERK procedure are i n the results section. XR CHEST 1 VW PORTABLE Routine 06/01/2019 7:12 R esults for this PM [employer]OR LODGE CLERK procedure are i n the results section. ECG PRE/POST OP Routine 06/01/2019 6:28 Results for this PM [employer]OR LODGE CLERK procedure are i n the results section. CV LEFT HEART CATH LV Routine 06/01/2019 5:30 Re sults for this GRAM WITH CORS PM MOTOR LODGE CLERK procedure are in the results section. EP INSERTION PACEMAKER Routine 06/01/2019 5:30 R esults for this PULSE GENERATOR WITH PM MOTOR LODGE CLERK procedu re are in EXISTING LEADS the results section. TYPE AND SCREEN STAT 06/01/2019 12:19 Results for this PM [employer]OR LODGE CLERK procedure are i n the results section. ESTIMATED GFR Routine 05/31/2019 9:30 Results fo r this PM [employer]OR LODGE CLERK procedure are i n the results section. THYROID STIMULATING Routine 05/31/2019 9:30 Resu lts for this HORMONE PM [employer]OR LODGE CLERK procedure are i n the results section. PHOSPHORUS LEVEL Routine 05/31/2019 9:30 Results for this PM [employer]OR LODGE CLERK procedure are i n the results section. MAGNESIUM LEVEL Routine 05/31/2019 9:30 Results for this PM [employer]OR LODGE CLERK procedure are i n the results section. COMPREHENSIVE METABOLIC Routine 05/31/2019 9:30 Results for this PANEL PM [employer]OR LODGE CLERK procedure are i n the results section. PARTIAL THROMBOPLASTIN Routine 05/31/2019 9:30 R esults for this TIME (PTT) PM [employer]OR LODGE CLERK procedure are i n the results section. PROTHROMBIN TIME WITH Routine 05/31/2019 9:30 Re sults for this INR PM [employer]OR LODGE CLERK procedure are i n the results section. TROPONIN Routine 05/31/2019 9:30 Results for this PM [employer]OR LODGE CLERK procedure are i n the results section. HC COMPLETE BLD COUNT Routine 05/31/2019 9:30 Re sults for this W/AUTO DIFF PM [employer]OR LODGE CLERK procedure are i n the results section. XR CHEST 1 VW PORTABLE Routine 05/31/2019 8:44 R esults for this PM [employer]OR LODGE CLERK procedure are i n the results section. ECG 12-LEAD STAT 05/31/2019 6:59 Results for this PM MOTOR LODGE CLERK procedure are i n the results section. after 05/26/2019 Results Estimated GFR (06/02/2019 2:50 AM MOTOR LODGE CLERK)Only the most recent of2 resultswithin the time period is included. Estimated GFR 46 (A) mL/min/1.73 GARCIA ALEVISM Comment: m2 HOSPITAL Catergory Units Interpretation G1 [...] Organization Address City/State/ZIP Code Phon e Number [facility] DEPARTMENT OF PATHOLOGY AND [address] [place] [phone] GENOMIC [facility] [address] [place] [address] Manual differential (06/02/2019 2:50 AM MOTOR LODGE CLERK) Manual differential PERFORMED [facility] Neutrophils 68.0 39.0 - 69.0 % [facility] Lymphocytes 22.0 (L) 25.0 - 45.0 % [facility] Monocytes 8.0 0.0 - 10.0 % [facility] Eosinophils 2.0 0.0 - 5.0 % [facility] Basophils 0.0 0.0 - 1.0 % [facility] Metamyelocytes 0 % [facility] Promyelocytes 0 % [facility] Platelet slide review Anival adequate [facility] Specimen Performing Organization Address City/State/ZIP Code Phon e Number [facility] DEPARTMENT OF PATHOLOGY AND [address] [place] [address] [phone] [address] CBC with platelet and differential (06/02/2019 2:50 AM MOTOR LODGE CLERK)Only the most recent of2 resultswithin the time period is included. Pathologist Sig nature WBC 10.19 4.50 - 11.00 k/uL [facility] RBC 4.88 4.40 - 6.00 m/uL [facility] HGB 15.5 14.0 - 18.0 g/dL [facility] HCT 47.3 41.0 - 51.0 % [facility] MCV 96.9 82.0 - 100.0 fL [facility] MCH 31.8 27.0 - 34.0 pg [facility] MCHC 32.8 31.0 - 37.0 g/dL [facility] RDW - SD 47.7 37.0 - 55.0 fL [facility] MPV 10.7 8.8 - 13.2 fL [facility] Platelet count 208 150 - 400 k/uL [facility] Nucleated RBC 0.00 /100 WBC [facility] Neutrophils 68.0 39.0 - 69.0 % [facility] Lymphocytes 22.0 (L) 25.0 - 45.0 % [facility] Monocytes 8.0 0.0 - 10.0 % [facility] Eosinophils 2.0 0.0 - 5.0 % [facility] Basophils 0.0 0.0 - 1.0 % [facility] Specimen Blood Performing Organization Address City/[facility] Phon e Number [facility] DEPARTMENT OF PATHOLOGY AND [address] [place] [address] [phone] [address] Basic metabolic panel (06/02/2019 2:50 AM MOTOR LODGE CLERK) Pathologist Sig nature Sodium 139 135 - 148 mEq/L [facility] Potassium 3.9 3.5 - 5.0 mEq/L [facility] Chloride 102 98 - 112 mEq/L [facility] CO2 24 24 - 31 mEq/L [facility] Anion gap 13@ANIO 7 - 15 mEq/L [facility] BUN 18 8 - 23 mg/dL [facility] Creatinine 1.37 (H) 0.70 - 1.20 mg/dL [facility] Glucose 126 (H) 65 - 99 mg/dL [facility] Calcium 8.9 8.8 - 10.2 mg/dL [facility] Specimen Plasma specimen Performing Organization Address City/[facility] Phon e Number [facility] DEPARTMENT OF PATHOLOGY AND [address] [place] [address] [phone] [address] XR Chest 1 Vw Portable (06/01/2019 7:12 PM MOTOR LODGE CLERK)Only the most recent of2 results within the [...] bases . There is no pleural effusion. [id number] Procedure Note Hm Interface, Radiology Results Incoming - 06/01/2019 7:46 PM MOTOR LODGE CLERK EXAMINATION: XR CHEST 1 VW PORTABLE CLINICAL HISTORY: pneumothorax COMPARISON: 05/31/2019 IMPRESSION: A frontal radiograph of the chest is rev iewed. The cardiomediastinal silhouette is unchanged. There has been interval placement of a left subclavian dual-lead pacemaking device. There is no pneumothorax. Atelectasis is present in the lung bases . There is no pleural effusion. [id number] Performing Organization Address [facility] Phon e Number [facility] [address] [place] [address] ECG Pre/Post Op-Tomorrow (06/01/2019 6:28 PM MOTOR LODGE CLERK) Pathologist Sig nature Ventricular rate 61 [facility] Atrial rate 61 [facility] NH interval 178 [facility] QRSD interval 206 [...] is no t available. Performing Organization Address [facility] Phon e Number [facility] [address] [place] [address] Electrophysiology procedure (06/01/2019 5:30 PM MOTOR LODGE CLERK) Pathologist Sig nature Cath EF Estimated 60 % [facility] Specimen Narrative Performed At This result has an attachment that is no t available. Left main normal. LAD with patent proximal stent. LCX normal. RCA dominant [facility] and normal. LVEF normal. No aortic valve disease. Iliac aortagram showed tortuous but no significant maris nosis. Performing Organization Address [facility] Phon e Number [facility] [address] [place] [address], [place] geophysical laboratory supervisor procedure (06/01/2019 5:30 PM MOTOR LODGE CLERK) Specimen Narrative Performed At This result has an attachment that is no t available. Left main normal. LAD with patent proximal stent. LCX normal. RCA dominant [facility] and normal. LVEF normal. No aortic valve disease. Iliac aortagram showed tortuous but no significant maris nosis. Performing Organization Address [facility] Phon e Number [facility] [address] [place] [address], Type and screen (06/01/2019 12:19 PM MOTOR LODGE CLERK) Pathologist Sig nature ABO grouping A [facility] Rh type NEG [facility] Antibody screen (gel) NEG [facility] Specimen Blood Performing Organization Address [facility] Phon e Number [facility] DEPARTMENT OF PATHOLOGY AND [address] [place] [address] [phone] [address] Troponin (05/31/2019 9:30 PM MOTOR LODGE CLERK) Pathologist Jovany Troponin 0.008 0.000 - 0.040 [facility] Comment: ng/mL HOSPITAL In patients suspected of [...] ng/mL Specimen Plasma specimen Performing Organization Address City/[facility] Phon e Number [facility] DEPARTMENT OF PATHOLOGY AND [address] [place] [address] [phone] [address] Partial thromboplastin time, activated (05/31/2019 9:30 PM MOTOR LODGE CLERK) Pathologist Jovany PTT 28.8 23.0 - 36.0 [facility] Comment: [facility] PTT therapeutic range for unfractionated heparin is 61.0-112.0 seconds which corresponds to Anti-Xa 0.3-0.7 U/ml. Specimen Blood Performing Organization Address City/[facility] Phon e Number [facility] DEPARTMENT OF PATHOLOGY AND [address] [place] [address] [phone] [address] Prothrombin time with INR (05/31/2019 9:30 PM MOTOR LODGE CLERK) Prothrombin time 14.2 11.5 - 14.5 [facility] INR 1.1 [facility] Comment: [facility] International Normalized Ratio (INR) is a [facility]rapeu [facility] HOSPITAL monitoring tool for patients who are stable on oral anticoagulant therapy. An INR of 2.0-3.0 is suggested for deep vein thrombosis/pulmonary embolism. Specimen Blood Performing Organization Address [facility] Phon e Number [facility] DEPARTMENT OF PATHOLOGY AND [address] [place] [address] [phone] [address] Thyroid stimulating hormone (05/31/2019 9:30 PM MOTOR LODGE CLERK) Pathologist Sig nature TSH 4.05 0.27 - 4.20 uIU/mL [facility] Specimen Plasma specimen Performing Organization Address [facility] Phon e Number [facility] DEPARTMENT OF PATHOLOGY AND [address] [place] [address] [phone] [address] Phosphorus level (05/31/2019 9:30 PM MOTOR LODGE CLERK) Pathologist Sig nature Phosphorus 2.9 2.4 - 4.5 mg/dL [facility] L Specimen Plasma specimen Performing Organization Address City/[facility] Phon e Number [facility] DEPARTMENT OF PATHOLOGY AND [address] [place] [address] [phone] [address] Magnesium level (05/31/2019 9:30 PM MOTOR LODGE CLERK) Pathologist Sig nature Magnesium 2.0 1.6 - 2.4 mg/dL [facility] Specimen Plasma specimen Performing Organization Address City/[facility]/ZIP [facility] Phon e Number [facility] DEPARTMENT OF PATHOLOGY AND [address] [place] [address] [place] [phone] [facility] [address] [place] [address] Comprehensive metabolic panel (05/31/2019 9:30 PM MOTOR LODGE CLERK) Sodium 142 135 - 148 [facility] mEq/L [facility] Potassium 4.1 3.5 - 5.0 [facility] mEq/L [facility] Chloride 103 98 - 112 mEq/L [facility] CO2 24 24 - 31 mEq/L [facility] Anion gap 15@ANIO 7 - 15 mEq/L [facility] BUN 20 8 - 23 mg/dL [facility] Creatinine 1.38 (H) 0.70 - 1.20 [facility] mg/dL [facility] Glucose 125 (H) 65 - 99 mg/dL [facility] Calcium 9.7 8.8 - 10.2 [facility] mg/dL [facility] Protein 7.6 6.3 - 8.3 g/dL [facility] Comment: HOSPITAL Ouhpyep5124.6-7.0 g/dL 1 vfsd0849.4-7.6 g/dL 7 months-0gckp315.1-7.3 g/dL 1-2 vdooi060.6-7.5 g/dL >3 onieg495.0-8.0 g/dL 18-9934916.3-8.3 g/dL Albumin 3.8 3.5 - 5.0 g/dL [facility] A/G ratio 1.0 0.7 - 3.8 [facility] Alkaline phosphatase 116 40 - 129 U/L [facility] AST 32 10 - 50 U/L [facility] ALT 24 5 - 50 U/L [facility] Total bilirubin 0.6 0.0 - 1.2 [facility] mg/dL [facility] Specimen Plasma specimen Performing Organization Address City/State/ZIP Code Phon e Number [facility] DEPARTMENT OF PATHOLOGY AND [address] [place], [place] [phone] [address] [address] ECG 12 lead (05/31/2019 6:59 PM MOTOR LODGE CLERK) Pathologist Sig nature Ventricular rate 37 [facility] [...] Organization Address City/State/ZIP Code Phon e Number [facility] MUSE [address] [place] [address] after 05/26/2019 Insurance Payer Benefit Plan / Subscriber ID Effective Dates Phone Addre ss Type Group MEDICARE MEDICARE PART A [id number] 1998-Present [place], [place] Medicare AND B BCBS BCBS CHOICE [id number] 2007-Present P PO PPO/F[employer]ERAL EMPL PPO Advance Directives For more information, please contact: [phone] Type Date Recorded Patient Hand Sample Maker Explanati on Advance Directives, Living Will and Medical Power of Sap Data Architect Code Status Date Activated Date Inactivated Comments Full Code 05/31/2019 9:04 PM 06/02/2019 4:41 PM Code Status decision reached by: Patient
--- OUTSIDE RECORDS SUMMARY | 2020-05-26 04:44 | XMS REPORT | Continuity of Care Document ---
:1935 Author Organization [facility] t Address [address] [place] [address] Care Team Providers Name Role Phone Asked, Pcp Primary Care Physician Unavailable Andreia EPPS FCee Attending Clinician Brianna Spence MD Attending Clinician Jose A EPPS V. Attending Clinician Josephine EPPS Attending Clinician ANDREIA Admitting Clinician Unavailable Payers Payer Name Policy Type Policy Effective Date Expiration Date Sour ce Number MEDICAREMEDICARE PART [id number] 1998 liudmila Cowart AND 00:00:00 Buddhist [id number] [facility] [place] [id number] 2007 [place] PPO/FEDERAL EMPL 00:00:00 Methodis t [id number] 2007- PresentPPO Problems Condition Condition Condition Status Onset Resolution Last Treating Co mments Source Name Details Category Date Date Treatment Clinician Date Cardiac Cardiac Disease Active [place] arrhythmia arrhythmia 05-31 Co thodi 00:00: st 00 Allergies, Adverse Reactions, Alerts This patient has no known allergies or adverse reactions. Family History Family Member Diagnosis Comments Start Date Stop Date Source Natural brother Cancer [facility] timothy Natural mother Heart disease [place] Buddhist Natural sister Brain cancer [facility] Social History Social Habit Start Date Stop Date Quantity Comments Source History [facility] Meth odist Alcohol Std Drinks History [facility] Meth odist Alcohol Binge Sex Assigned At [facility] ethodist Alcohol intake 2019-06-03 2019-06-03 Lifetime [facility] thodist 00:00:00 00:00:00 non-drinker (finding) History SDOH [...] nightly. st 47 gabapentin 2020-0 Yes 100mg [id number] Take 100 [place] (NEURONTIN) 06-02 [id number] mg by M ethodi 100 mg 12:41: [...] blood 2019-06-02 09:00:00 130 mm[Hg] Cabrera n Buddhist pressure Diastolic blood 2019-06-02 09:00:00 71 mm[Hg] Izzy on Buddhist pressure Heart rate 2019-06-02 09:00:00 66 /min [...] VW PORTABLE 2019-06-01 19:12:51 Parul Vu on Buddhist ECG PRE/POST OP 2019-06-01 18:28:08 Parul Vu [...] Martin PARTIAL THROMBOPLASTIN 2019-05-31 21:30:00 Gina Martin Buddhist TIME (PTT) COMPREHENSIVE METABOLIC 2019-05-31 21:30:00 Gina Martin Buddhist PANEL MAGNESIUM LEVEL 2019-05-31 21:30:00 Gina Martin [...] Source Future Scheduled 2019-12-24 INFLUENZA VACCINE [place] r[place]h Buddhist Test 00:00:00 [code = INFLUENZA VACCINE] Future Scheduled 1998 65+ PNEUMOCOCCAL Johnnie Buddhist Test 00:00:00 VACCINE (1 of 1 - PPSV23) [code = 65+ PNEUMOCOCCAL VACCINE (1 of 1 - PPSV23)] Future Scheduled 1983 SHINGLES VACCINES (#1) H gab Buddhist Test 00:00:00 [code = SHINGLES VACCINES (#1)] Future Scheduled 1949 COVID-19 VACCINE (#1) Ho liudmila Buddhist Test 00:00:00 [code = COVID-19 VACCINE (#1)] Encounters Start End Encounter Admission Attending Care Care Encounter Source Date/Time Date/Time Type Type Clinicians Facility Department ID 2019-05-31 2019-06-02 Inpatient [facility] [id number] Johnnie 00:00:00 00:00:00 GINA Yee Method i st Results Test Description Test Time Test Comments Results Result Comments Source ECG Pre/Post Op-Tomorrow 2019-06-02 20:54:15 Test Item Value Reference Range Interpretation Comme nts Ventricular rate (test code = 253) 61 Atrial rate (test code = 255) 61 MN interval (test code = 266) 178 QRSD [...] rhythm-Vent. rate has increased BY 24 BPM- [place] MethodistCath lab [id number] 16:05:15Left main normal. LAD with patent proximal stent. LCX normal. RCA dominant and normal. LVEF normal. No aortic valve disease. Iliac aortagram showed tortuous but no significant stenosis.[place] MethodistElectrophysiology [id number] 16:05:14 Test Item Value Reference Range Interpretation Comments Cath EF Estimated 60 % (test code = 8673545347) CURT (test code = CURT) Left main normal. LAD with patent proximal stent. LCX normal. RCA dominant and normal. LVEF normal. No aortic valve disease. Iliac aortagram showed tortuous but no significant stenosis. [facility] MethodistCBC with platelet and [id number] 09:47:12 Test Item Value Reference Range Interpretation Comments WBC (test code = 48957-1) 10.19 4.50- 11.00 k/uL RBC (test code = 56246-2) 4.88 m/uL 4.4-6 HGB (test code = 718-7) 15.5 g/dL 14-18 HCT (test code = 4544-3) 47.3 % 41-51 MCV (test code = 787-2) 96.9 fL 82-100 MCH (test code = 785-6) 31.8 pg 27-34 MCHC (test code = 786-4) 32.8 g/dL 31-37 RDW - SD (test code = 69397-4) 47.7 fL 37-55 MPV (test code = 74590-5) 10.7 fL 8.8-13.2 Platelet count (test code = 208 150- 400 k/uL 18755-6) Nucleated RBC (test code = 0.00 /100 WBC 59411-0) Neutrophils (test code = 11968-1) 68.0 % 39-69 Lymphocytes (test code = 93505-1) 22.0 % 25-45 L Monocytes (test code = 22198-7) 8.0 % 0-10 Eosinophils (test code = 63418-6) 2.0 % 0-5 Basophils (test code = 04076-4) 0.0 % 0-1 Lab Interpretation (test code = Abnormal 45405-5) [place] MethodistManual [id number] 09:47:12 Test Item Value Reference Range Interpretation Comments Manual differential (test code = PERFORMED 63230-0) Neutrophils (test code = 68.0 % 39-69 21108-0) Lymphocytes (test code = 22.0 % 25-45 L 39550-0) Monocytes (test code = 85625-5) 8.0 % 0-10 Eosinophils (test code = 2.0 % 0-5 27208-3) Basophils (test code = 66575-4) 0.0 % 0-1 Metamyelocytes (test code = 0 % 740-1) Promyelocytes (test code = 0 % 783-1) Platelet slide review (test code Anival adequate = 29517-3) Lab Interpretation (test code = Abnormal 53066-4) [place] MethodistBasic metabolic [id number] 04:41:31 Test Item Value Reference Range Interpretation Comments Sodium (test code = 2951-2) 139 135- 148 mEq/L Potassium (test code = 2823-3) 3.9 3.5- 5.0 mEq/L Chloride (test code = 2075-0) 102 98- 112 mEq/L CO2 (test code = 2027-9) 24 24- 31 mEq/L Anion gap (test code = 85051-4) 13@ANIO 7- 15 mEq/L BUN (test code = 3094-0) 18 mg/dL 8-23 Creatinine (test code = 2160-0) 1.37 mg/dL 0.7-1.2 H Glucose (test code = 2345-7) 126 mg/dL 65-99 H Calcium (test code = 63821-1) 8.9 mg/dL 8.8-10.2 Lab Interpretation (test code = Abnormal 47649-7) [place] MethodistEstimated [id number] 04:41:30 Test Item Value Reference Range Interpretation Comments Estimated GFR (test 46 mL/min/1.73 m2 Supa willis Units code = 5488) InterpretationG 1 >=90 Maribel l or highG2 60-89 Mildly decrease dG3a 45-59 Mil dly to moderately decr yhvxyO3i 30-44 Moderately to s everely decreasedG4 15-29 Severe ly decreasedG5 <15 Kidney nina lureThe eGFR was calcul ated using the Chron ic Kidney Disease Epidemiology Collaboration ( CKD-EPI) equation. Interpretation is based on recommendati ons of the [facility]-Kidn ey Disease Outcome s Quality Initiat miracle (NKF-KDOQI) pub lished in 2013. Lab Interpretation Abnormal (test code = 09562-1) [place] MethodistXR Chest 1 Vw [id number] 19:43:18Hm Interface, Radiology Results Incoming - 06/01/2019 7:46 PM CSTEXAMINATION: XR CHEST 1 VW PORTABLECLINICAL HISTORY: pneumothoraxCOMPARISON: 05/31/2019IMPRESSION:A frontal radiograph of the chest isreviewed. The cardiomediastinal silhouette is unchanged. There has been interval placement of a leftsubclavian dual-lead pacemaking device. There is no pneumothorax. Atelectasis is present in the lung bases. There is no pleural effusion.[facility]-[id number] MethodistType and [id number] 13:29:00 Test Item Value Reference Range Interpretation Comments ABO grouping (test code = 883-9) A Rh type (test code = 77659-2) NEG Antibody screen (gel) (test code = NEG 890-4) [place] MethodistECG 12 [id number] 08:46:14 Test Item Value Reference Range Interpretation [...] MD (1000) on 06/01/2019 8:46:08 AM Johnnie [id number] 22:26:15 Test Item Value Reference Range Interpretation Comments Troponin (test code 0.008 ng/mL 0-0.04 In patie nts suspected = 01218-0) of having a cj cardial infarction, kalli [...] ss than 0.020 ng/mL [place] MethodistThyroid stimulating [id number] 22:21:10 Test Item Value Reference Range Interpretation Comments TSH (test code = 3016-3) 4.05 0.27- 4.20 uIU/mL [place] MethodistComprehensive metabolic [id number] 22:15:05 Test Item Value Reference Range Interpretation Comments Sodium (test code = 142 135- 148 mEq/L 2951-2) Potassium (test code = 4.1 3.5- 5.0 mEq/L 2823-3) Chloride (test code = 103 98- 112 mEq/L 5-0) CO2 (test code = 2027-) 24 24- 31 mEq/L Anion gap (test code = 15@ANIO 7- 15 mEq/L 09145-4) BUN (test code = 3094-0) 20 mg/dL 8-23 Creatinine (test code = 1.38 mg/dL 0.7-1.2 H 2160-0) Glucose (test code = 125 mg/dL 65-99 H 2345-7) Calcium (test code = 9.7 mg/dL 8.8-10.2 97363-3) Protein (test code = 7.6 g/dL 6.3-8.3 [place] 9994.6-7.0 2885-2) g/dL1 wqyb6456.4-7.6 g/dL7 months-7tdud286 .1- 7.3 g/dL1-2 .6-7.5 g/dL>3 oprhw297.0-8.0 g/jH16-8517630. 3-8 .3 g/dL Albumin (test code = 3.8 g/dL 3.5-5 1751-7) A/G ratio (test code = 1.0 0.7-3.8 1759-0) Alkaline phosphatase 116 U/L 40-129 (test code = 6768-6) AST (test code = 1920-8) 32 U/L 10-50 ALT (test code = 1742-6) 24 U/L 5-50 Total bilirubin (test 0.6 mg/dL 0-1.2 code = 1974-2) Lab Interpretation (test Abnormal code = 20483-3) [place] MethodistMagnesium [id number] 22:15:05 Test Item Value Reference Range Interpretation Comments Magnesium (test code = 91340-0) 2.0 mg/dL 1.6-2.4 [place] MethodistPhosphorus [id number] 22:15:03 Test Item Value Reference Range Interpretation Comments Phosphorus (test code = 2777-1) 2.9 mg/dL 2.4-4.5 [place] MethodistPartial thromboplastin time, [id number] 21:53:28 Test Item Value Reference Range Interpretation Comments PTT (test code = 28.8 23.0- 36.0 [place] [address]-6) unfractionated heparin is61.0-112.0 se conds which corresponds to Anti-Xa0.3-0.7 U/ml. [place] MethodistProthrombin time with [id number] 21:52:44 Test Item Value Reference Range Interpretation Comments Prothrombin time (test 14.2 11.5- 14.5 sec code = 5902-2) INR (test code = 1.1 The Interna tional 43386-6) Normalized Rati o (INR) is a therapeutic m onitoring tool for patien ts who are stable on oral anticoagulant t herapy. An INR of 2.0-3.0 is suggested for d eep vein thrombosis/pulm onary embolism. Johnnie Lr
[2020-05-26 05:14] LABS: Absolute Lymphocytes (CBC) 1.1 K/uL (0.7-4.9); Basophils % 0.6 % (0-1.3); Hematocrit 39.5 % (39.6-49.0); MPV 7.8 fL (7.6-11.3); RBC Red Blood Cell Count 4.15 M/uL (4.33-5.43)
[2020-05-26 05:15] LABS: Protime INR 1.27
[2020-05-26 05:29] LABS: Bilirubin Direct 1.3 mg/dL (0-0.2); Bilirubin Total 2.1 mg/dL (0.2-1.0); Magnesium 2.1 mg/dL (1.8-2.4); Potassium 4.2 mmol/L (3.5-5.1); Protein, Total 7.2 g/dL (6.4-8.2); Troponin (Emerg Dept Use Only) 0.22 ng/mL (0.0-0.045)
[2020-05-26] MEDS ORDERED: NA CHLORIDE 0.9% 1,000 ML ONE (08:37)
[2020-05-26] MEDS ORDERED: FAMOTIDINE 20 MG/2 ML VIAL IV ONE (08:37)
--- NOTE | 2020-05-26 09:21 | RAD REPORT ---
EXAM DESCRIPTION: CT - Chest Abd Pelvis Wo Con - 05/26/2020 8:59 am CLINICAL HISTORY: Chest and abdominal pain COMPARISON: Abdominal ultrasound April 2020 TECHNIQUE: Computed axial tomography of the chest, abdomen and pelvis was obtained. Oral contrast wa s given. IV contrast was not requested. All CT scans are performed using dose optimization technique as appropriate and may include automated exposure control or mA/KV adjustment according to patient size. FINDINGS: The evaluation of mediastinum, wilfredo, vessels and solid organs is limited secondary to the lack of IV contrast administration Lungs are generally clear. Coronary arterial calcifications. No mediastinal or hilar lymphadenopathy is seen. A pleural effusion is not present. A pericardial effusion is not seen. The gallbladder wall is thickened. A small hiatal hernia Liver, spleen, pancreas and adrenals appear grossly normal. Punctate nonobstructing right renal calcu kailee. 3.4 centimeter left renal cyst. Smaller right renal cyst. The prostate gland is mildly to moderately enlarged. Small inguinal hernias contain fat There is no evidence of diverticulitis. IMPRESSION: Thickening of the gallbladder wall may indicate cholecystitis and should be correlated c linically
--- NOTE | 2020-05-26 09:22 | RAD REPORT ---
EXAM DESCRIPTION: Gino Single View05/26/2020 5:12 am CLINICAL HISTORY: Chest pain COMPARISON: April 2020 FINDINGS: The lungs appear clear of acute infiltrate. The heart is mildly enlarged. Pacemaker leads are in place. IMPRESSION: No acute abnormalities displayed
--- NOTE | 2020-05-26 09:35 | ER ---
Nurse's Notes [facility] Name: Leanna Judge Age: 84 yrs Sex: Male : 1935 Arrival Date: 05/26/2020 Time: 04:52 Bed 4 Private MD: Diagnosis: Abdominal tenderness;Cholecystitis;Unspecified kidney failure-insufficency Presentation: 05/26 04:53 Chief complaint: Patient states: right sided chest pain going to my back on my shoulder rr5 blade started 5 PM yesterday. recently had a [address] atkinson. Coronavirus screen: Client denies travel out of the [place] in the last 14 days. At this time, the client does not indicate any symptoms associated with coronavirus-19. Ebola Screen: Patient negative for fever greater than or equal to 101.5 degrees Fahrenheit, and additional compatible Ebola Virus Disease symptoms Patient denies exposure to infectious person. Patient denies travel to an Ebola-affected area in the 21 days before illness onset. Initial Sepsis Screen: Does the patient meet any 2 criteria? No. Patient's initial sepsis screen is negative. Does the patient have a suspected source of infection? No. Patient's initial sepsis screen is negative. Risk Assessment: Do you want to hurt yourself or someone else? Patient reports no desire to harm self or others. Onset of symptoms was May 25, 2020 at 17:00. 04:53 Method Of Arrival: Wheelchair rr5 04:53 Acuity: GRACIE 3 rr5 04:53 Care prior to arrival: Medication(s) given: nitroglycerin x 2 2 hours ago. rr5 Historical: - Allergies: 04:58 No Known Allergies; rr5 - Home Meds: 04:58 allopurinol 100 mg Oral tab 1 tab once daily [Active]; aspirin 81 mg Oral TbEC once rr5 daily [Active]; clopidogrel 75 mg Oral tab once daily [Active]; escitalopram oxalate 10 mg Oral tab 1 tab once daily [Active]; gabapentin 100 mg Oral cap 3 times per day [Active]; simvastatin 40 mg Oral tab 1 tab once daily [Active]; nitroglycerin 0.4 mg SL subl 1 tab every 5 minutes [Active]; valsartan 320 mg Oral tab once daily [Active]; - PMHx: 04:58 Gout; Hyperlipidemia; Myocardial infarction; rr5 - PSHx: 04:58 Heart stents; pacemaker; melanoma surgery; rr5 - Immunization history:: Adult Immunizations up to date. - Social history:: Smoking status: unknown Patient/guardian denies using alcohol, street drugs. Screenin:01 Abuse screen: Denies threats or abuse. Denies injuries from another. Nutritional rr5 screening: No deficits noted. Tuberculosis screening: No symptoms or risk factors identified. Fall Risk IV access (20 points). Total Henry Fall Scale indicates No Risk (0-24 pts). Assessment: 04:59 General: Appears in no apparent distress. uncomfortable, Behavior is calm, cooperative, rr5 appropriate for age. Pain: Complains of pain in right lateral anterior chest Pain radiates to right scapular area Pain currently is 5 out of 10 on a pain scale. Quality of pain is described as dull, Pain began gradually, Is intermittent. Neuro: Level of Consciousness is awake, alert, obeys commands, Oriented to person, place, time, situation. Cardiovascular: Reports chest pain, Capillary refill < 3 seconds Patient's skin is warm and dry. Respiratory: Airway is patent Respiratory effort is even, unlabored, Respiratory pattern is regular, symmetrical. GI: No signs and/or symptoms were reported involving the gastrointestinal system. : No signs and/or symptoms were reported regarding the genitourinary system. EENT: No signs and/or symptoms were reported regarding the EENT system. Derm: Skin is intact, is healthy with good turgor, Skin temperature is warm. Musculoskeletal: Circulation, motion, and sensation intact. Capillary refill < 3 seconds. 06:10 Reassessment: Patient appears in no apparent distress at this time. Patient is alert, rr5 oriented x 3, equal unlabored respirations, skin warm/dry/pink. awaiting for results. 07:00 Reassessment: Patient appears in no apparent distress at this time. for admission as rr5 per ED provider. 07:21 Reassessment: Patient appears in no apparent distress at this time. Patient and/or em family updated on plan of care and expected duration. Pain level reassessed. Patient is alert, oriented x 3, equal unlabored respirations, skin warm/dry/pink. rates pain 5/10. 08:10 Reassessment: Patient appears in no apparent distress at this time. Patient and/or em family updated on plan of care and expected duration. Pain level reassessed. Patient is alert, oriented x 3, equal unlabored respirations, skin warm/dry/pink. 09:45 Reassessment: Patient appears in no apparent distress at this time. Patient and/or em family updated on plan of care and expected duration. Pain level reassessed. Patient is alert, oriented x 3, equal unlabored respirations, skin warm/dry/pink. 10:50 Reassessment: report given to ASIF Mckeon at [facility], pending EMS em transportation. 11:52 Reassessment: report given to [facility]. em Vital Signs: 04:53 BP 120 / 60; Pulse 71; Resp 17; Temp 98.1; Pulse Ox 99% ; Weight 99.34 kg; Height 5 ft. rr5 8 in. (172.72 cm); Pain 5/10; 06:00 BP 117 / 60; Pulse 63; Resp 16; Pulse Ox 98% ; rr5 07:11 BP 133 / 68; Pulse 70; Resp 22; Pulse Ox 96% ; sv 08:08 BP 114 / 78; Pulse 67; Resp 18; Pulse Ox 95% on R/A; em 09:44 BP 127 / 62; Pulse 61; Resp 18; Pulse Ox 97% on R/A; Pain 5/10; em 10:18 BP 129 / 67; Pulse 70; Resp 20; Pulse Ox 97% ; sv 04:53 Body Mass Index 33.30 (99.34 kg, 172.72 cm) rr5 ED Course: 04:52 Patient arrived in ED. mg2 04:53 Rishi Little RN is Primary Nurse. rr5 04:55 EKG done, by ED staff, reviewed by Flakito Morales MD. rr5 04:56 Triage completed. rr5 04:59 Arm band placed on right wrist. rr5 05:00 No provider procedures requiring assistance completed. Inserted saline lock: 20 gauge rr5 in right wrist, using aseptic technique. ,using aseptic technique. inserted by mihaela GOLD Blood collected. Patient maintains SpO2 saturation greater than 95% on room air. 05:01 Patient has correct armband on for positive identification. Placed in gown. Bed in low rr5 position. Call light in reach. Side rails up X2. teletypesetter monitor on. Pulse ox on. NIBP on. Warm blanket given. 05:11 XRAY Chest (1 view) In Process Unspecified. EDMS 06:20 Flakito Morales MD is Attending Physician. pkl 07:21 Basic Metabolic Panel Sent. sv 07:21 LFT's Sent. sv 08:15 Primary Nurse role handed off by Rishi Little RN sv 08:15 Attending Physician role handed off by Flakito Morales MD curt 08:15 Nik White MD is Attending Physician. curt 08:18 Yohan Suarez RN is Primary Nurse. em 08:59 CT Chest Abdomen Pelvis W/O Contrast In Process Unspecified. EDMS 09:[address] White with JERRY Ortiz from the [facility] Transfer [place]. eb 09:46 connected the GI groundwater consultant for [facility] with Dr. White for patient eb transfer consultation. 09:[address] Silverman the Hospitalist groundwater consultant for [facility] with Dr. White for eb patient transfer consultation. 10:03 administrative approval given by JERRY Ortiz/ patient has been accepted to [facility] eb 24 tower 2455/ Dr. Silverman has accepted the patient in transfer/ report to be called to [phone]. 12:40 US Abdomen Limited In Process Unspecified. EDMS Administered Medications: 08:30 Drug: NS 0.9% 1000 ml Route: IV; Rate: 125 ml/hr; Site: right wrist; em 11:59 Follow up: IV Status: Infusion continued upon transfer em 08:30 Drug: Pepcid 20 mg Route: IVP; Site: right wrist; em 09:34 Follow up: Response: No adverse reaction em 09:52 Drug: Zosyn 3.375 grams Route: IVPB; Infused Over: 60 mins; Site: right wrist; em 11:59 Follow up: Response: No adverse reaction; IV Status: Completed infusion; IV Intake: em 100ml Intake: 06:59 IV: 500ml; Total: 500ml. sv 11:59 IV: 100ml; Total: 600ml. em Outcome: 09:35 ER care complete, transfer ordered by . curt 12:07 Patient left the ED. em Signatures: Dispatcher [employer] EDKristin Hawkins RN RN sv Anderson, Corey, MD MD cha Lam Pin, MD MD pkl Suarez, Yohan, RN RN Tanya Freedman Michele, RN RN mg2 Rishi Little RN RN rr5
--- NOTE | 2020-05-26 09:35 | EDPHYS ---
Physician Documentation [facility] Name: Leanna Judge Age: 84 yrs Sex: Male : 1935 Arrival Date: 05/26/2020 Time: 04:52 Bed 4 Private MD: ED Physician Nik White HPI: 05/26 06:27 This 84 yrs old Male presents to ER via Wheelchair with complaints of Chest pkl Pain. 06:27 The patient or guardian reports chest pain that is located primarily in the right side pkl chest pain. Onset: yesterday. The pain radiates to right scapular. The chest pain is described as dull. Patient has 2 heart stents placement [address] Breen. Historical: - Allergies: 04:58 No Known Allergies; rr5 - Home Meds: 04:58 allopurinol 100 mg Oral tab 1 tab once daily [Active]; aspirin 81 mg Oral TbEC once rr5 daily [Active]; clopidogrel 75 mg Oral tab once daily [Active]; escitalopram oxalate 10 mg Oral tab 1 tab once daily [Active]; gabapentin 100 mg Oral cap 3 times per day [Active]; simvastatin 40 mg Oral tab 1 tab once daily [Active]; nitroglycerin 0.4 mg SL subl 1 tab every 5 minutes [Active]; valsartan 320 mg Oral tab once daily [Active]; - PMHx: 04:58 Gout; Hyperlipidemia; Myocardial infarction; rr5 - PSHx: 04:58 Heart stents; pacemaker; melanoma surgery; rr5 - Immunization history:: Adult Immunizations up to date. - Social history:: Smoking status: unknown Patient/guardian denies using alcohol, street drugs. ROS: 06:27 Eyes: Negative for injury, pain, redness, and discharge, ENT: Negative for injury, pkl pain, and discharge, Neck: Negative for injury, pain, and swelling. 06:27 Cardiovascular: Positive for chest pain. 06:27 Respiratory: Negative for cough, shortness of breath. 06:27 Abdomen/GI: Negative for abdominal pain, nausea, vomiting, and diarrhea. 06:27 Back: Negative for acute changes. 06:27 : Negative for urinary symptoms. 06:27 MS/extremity: Negative for acute changes. 06:27 Skin: Negative for rash. 06:27 Neuro: Negative for altered mental status. Exam: 06:27 Head/Face: Normocephalic, atraumatic. Eyes: Pupils equal round and reactive to light, pkl extra-ocular motions intact. Lids and lashes normal. Conjunctiva and sclera are non-icteric and not injected. Cornea within normal limits. Periorbital areas with no swelling, redness, or edema. ENT: Nares patent. No nasal discharge, no septal abnormalities noted. Tympanic membranes are normal and external auditory canals are clear. Oropharynx with no redness, swelling, or masses, exudates, or evidence of obstruction, uvula midline. Mucous membranes moist. Neck: Trachea midline, no thyromegaly or masses palpated, and no cervical lymphadenopathy. Supple, full range of motion without nuchal rigidity, or vertebral point tenderness. No Meningismus. Chest/axilla: Normal chest wall appearance and motion. Nontender with no deformity. No lesions are appreciated. Cardiovascular: Regular rate and rhythm with a normal S1 and S2. No gallops, murmurs, or rubs. Normal PMI, no JVD. No pulse deficits. Respiratory: Lungs have equal breath sounds bilaterally, clear to auscultation and percussion. No rales, rhonchi or wheezes noted. No increased work of breathing, no retractions or nasal flaring. Abdomen/GI: Soft, non-tender, with normal bowel sounds. No distension or tympany. No guarding or rebound. No evidence of tenderness throughout. Back: No spinal tenderness. No costovertebral tenderness. Full range of motion. Skin: Warm, dry with normal turgor. Normal color with no rashes, no lesions, and no evidence of cellulitis. MS/ Extremity: Pulses equal, no cyanosis. Neurovascular intact. Full, normal range of motion. Neuro: Awake and alert, GCS 15, oriented to person, place, time, and situation. Cranial nerves II-XII grossly intact. Motor strength 5/5 in all extremities. Sensory grossly intact. Cerebellar exam normal. Normal gait. Vital Signs: 04:53 BP 120 / 60; Pulse 71; Resp 17; Temp 98.1; Pulse Ox 99% ; Weight 99.34 kg; Height 5 ft. rr5 8 in. (172.72 cm); Pain 5/10; 06:00 BP 117 / 60; Pulse 63; Resp 16; Pulse Ox 98% ; rr5 07:11 BP 133 / 68; Pulse 70; Resp 22; Pulse Ox 96% ; sv 08:08 BP 114 / 78; Pulse 67; Resp 18; Pulse Ox 95% on R/A; em 09:44 BP 127 / 62; Pulse 61; Resp 18; Pulse Ox 97% on R/A; Pain 5/10; em 10:18 BP 129 / 67; Pulse 70; Resp 20; Pulse Ox 97% ; sv 04:53 Body Mass Index 33.30 (99.34 kg, 172.72 cm) rr5 MDM: 06:20 Patient medically screened. pkl 09:35 Differential diagnosis: abnormal EKG, chest wall pain, cholecystitis, Cholelithiasis curt gastritis, hiatal hernia, pancreatitis, peptic ulcer disease, pulmonary embolus, stable angina, unstable angina. HEART Score: History: Slightly Suspicious (0), ECG: Normal (0), Age: > or = 65 years (2), Risk Factors: > or = 3 Risk factors for atherosclerotic disease (2), [Hypercholesterolemia] [Hypertension] [+ Family HX] [Obesity] Troponin: < or = 1 x Normal Limit (0), Total Score = 4. The patient was not given aspirin in the Emergency Department. The patient's deep vein thrombosis risk score was calculated as follows: the patient has recently been bedridden for more than three days or has received major surgery in the last four weeks (1 Pt) Total Score: 1 to 2 points. This patient was found to be at moderate risk for a deep vein thrombosis by using the Well's assessment criteria. The patient's pulmonary embolism risk score was calculated as follows: patient has experienced immobilization or surgery in the last four weeks (1.5 Pts) Total Score: 0-2 points. This patient was found to be at low risk for a pulmonary embolism by using the Well's assessment criteria. ERLIN Risk Score: 1 - patient's age is greater or equal to 65 years, 1 - Three or more CAD risk factors, 1- Known CAD, 1 - ASA use in past 7 days, 1 - Recent [<24hrs] Severe Angina, 1 - Elevated Cardiac Markers, TOTAL SCORE = 6. Data reviewed: vital signs, nurses notes, lab test result(s), EKG, radiologic studies, CT scan. 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 Test interpretation: by ED physician or midlevel provider: ECG, plain radiologic studies. Counseling: I had a detailed discussion with the patient and/or guardian regarding: the historical points, exam findings, and any diagnostic results supporting the discharge/admit diagnosis, lab results, radiology results, the need to transfer to another facility, for higher level of care, [facility] does not immediately have the required specialist. 05/26 04:52 Order name: Basic Metabolic Panel mg2 05/26 04:52 Order name: CBC with Diff; Complete Time: 06:22 mg2 05/26 04:52 Order name: LFT's mg2 05/26 04:52 Order name: Magnesium; Complete Time: 06:22 mg2 05/26 04:52 Order name: NT PRO-BNP; Complete Time: 06:22 mg2 05/26 04:52 Order name: PT-INR; Complete Time: 06:22 mg2 05/26 04:52 Order name: Troponin (emerg Dept Use Only); Complete Time: 06:22 mg2 05/26 04:52 Order name: XRAY Chest (1 view); Complete Time: 09:26 mg2 05/26 04:53 Order name: Basic Metabolic Panel; Complete Time: 06:22 EDMS 05/26 04:53 Order name: Liver (Hepatic) Function; Complete Time: 06:22 EDMS 05/26 07:27 Order name: US Abdomen Limited pkl 05/26 08:16 Order name: Lipase; Complete Time: 09:26 curt 05/26 08:18 Order name: CT Chest Abdomen Pelvis W/O Contrast; Complete Time: 09:26 curt 05/26 04:52 Order name: EKG; Complete Time: 04:53 mg2 05/26 04:52 Order name: Cardiac monitoring; Complete Time: 05: mg2 05/26 04:52 Order name: EKG - Nurse/Tech; Complete Time: 05:02 mg2 05/26 04:52 Order name: IV Saline Lock; Complete Time: 05:02 mg2 05/26 04:52 Order name: Labs collected and sent; Complete Time: 05:01 mg2 05/26 04:52 Order name: O2 Per Protocol; Complete Time: 05: mg2 05/26 04:52 Order name: O2 Sat Monitoring; Complete Time: 05:02 mg2 Administered Medications: 08:30 Drug: NS 0.9% 1000 ml Route: IV; Rate: 125 ml/hr; Site: right wrist; em 11:59 Follow up: IV Status: Infusion continued upon transfer em 08:30 Drug: Pepcid 20 mg Route: IVP; Site: right wrist; em 09:34 Follow up: Response: No adverse reaction em 09:52 Drug: Zosyn 3.375 grams Route: IVPB; Infused Over: 60 mins; Site: right wrist; em 11:59 Follow up: Response: No adverse reaction; IV Status: Completed infusion; IV Intake: em 100ml Disposition: 05/26/20 09:35 Transfer ordered to [facility]. Diagnosis are Abdominal tenderness, Cholecystitis, Unspecified kidney failure - insufficency. - Reason for transfer: Higher level of care. - Accepting physician is to [facility]. - Condition is Fair. - Problem is new. - Symptoms have improved. Signatures: Dispatcher [employer] EDNik Burt MD MD cha Lam, Pin, MD MD pkl Munoz, Edgar, RN RN Foster Esteves, ASIF RN [facility] Rishi Little, RN RN rr5 Corrections: (The following items were deleted from the chart) 12:07 09:35 05/26/2020 09:35 Transfer ordered to [facility]. em Diagnosis is Abdominal tenderness; Cholecystitis; Unspecified kidney failure - insufficency. Reason for transfer: Higher level of care. Accepting physician is to [facility]. Condition is Fair. Problem is new. Symptoms have improved. curt
[2020-05-26] MEDS ORDERED: PIPER/TAZO/NS 3.375gm 3.375 GM/100 ML BAG ONE (10:03)
[2020-05-26 12:23] VITALS: O2SAT 97
[2020-05-26 12:25] VITALS: BP 129/67
[2020-05-26 12:49] VITALS: TEMP 98.1
--- NOTE | 2020-05-26 12:49 | RAD REPORT ---
EXAM DESCRIPTION: US - Abdomen Exam Limited - 05/26/2020 12:40 pm CLINICAL HISTORY: Abdominal pain. COMPARISON: April 2020 FINDINGS: Liver has an increased echotexture. Hepatopetal flow. A gallstone is not visualized. The gallbladder wall is thickened measuring 7 millimeters. The biliary tree is normal caliber IMPRESSION: Increased hepatic echotexture may indicate fatty infiltration Gallbladder wall thickening can be seen with acalculous cholecystitis or hypoalbuminemia
--- NOTE | 2020-05-26 14:05 | EKG ---
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
== END 2020-05-26 12:07 | disposition short-term general hospital (02) ==
LOC: ER 04:41
DX: K81.9 Cholecystitis, unspecified (principal); N19 Unspecified kidney failure; E78.5 Hyperlipidemia, unspecified; Z95.0 Presence of cardiac pacemaker; Z95.818 Presence of other cardiac implants and grafts; Z79.82 Long term (current) use of aspirin
CPT/HCPCS: 96365; 96361; 93005; 85025; 80048; 36415; 83735; 85610; 80076; 84484; 83690; 83880; 71250; 74176; 71045; 76705; 96375; 99285; 96366; J2543; J7030

== ENCOUNTER 2021-11-07 19:50 | Emergency (ER) | payer OTHER, BC ==
--- OUTSIDE RECORDS SUMMARY | 2021-11-07 19:54 | XMS REPORT | Continuity of Care Document ---
:1935 Author Organization [facility] t Address [address] [place] [address] Care Team Providers Name Role Phone Liz HINOJOSA Attending Clinician Unavailable ANDREIA Attending Clinician Unavailable Liz HINOJOSA Admitting Clinician Unavailable AMIE LUGO Admitting Clinician Unavailable ANDREIA Admitting Clinician Unavailable Payers Payer Name Policy Type Policy Number Effective Date Expiration Date S johnny MEDICARE A B [id number] 1998 00:00:00 BCBS FED [id number] 2019 00:00:00 Problems This patient has no known problems. Allergies, Adverse Reactions, Alerts Allergy Allergy Status Severity Reaction(s) Onset Inactive Treating Comm ents Source Name Type Date Date Clinician NO KNOWN Allergy Active [facility] Medications This patient has no known medications. Vital Signs Vital Name Observation Time Observation Value Comments Source HEIGHT 2020-05-26 13:26:00 179.8 cm WEIGHT 2020-05-26 13:26:00 98.249 kg HEIGHT 2020-05-26 13:26:00 179.8 cm WEIGHT 2020-05-26 13:26:00 98.249 kg Procedures This patient has no known procedures. Encounters Start End Encounter Admission Attending Care Care Encounter Source Date/Time Date/Time Type Type Clinicians Facility Department ID 2020-05-26 Inpatient ER IGNACIO HINOJOSA Gastro [id number] [facility] 12:59:00 ERIKA 2020-07-13 2020-07-13 Outpatient [facility] [id number] [address] [place] 00:00:00 00:00:[address] 2020-06-22 2020-06-22 Outpatient [facility] [id number] [place] 00:00:00 00:00:[address] 2019-05-31 2019-06-02 Inpatient ANDREIA [facility] [place] [id number] [address] [place] 00:00:00 00:00:00 GINA [facility] Results Test Description Test Time Test Comments Results Result Comments Source BASIC METABOLIC PANEL 2020-05-31 07:06:00 Test Item Value Reference Range Interpretation Comme nts SODIUM (BEAKER) (test code 139 meq/L 136-145 = 381) POTASSIUM (BEAKER) (test 3.9 meq/L 3.5-5.1 code = 379) CHLORIDE (BEAKER) (test 106 meq/L 98-107 code = 382) CO2 (BEAKER) (test code = 24 meq/L 22-29 355) BLOOD UREA NITROGEN 10 mg/dL 7-21 (BEAKER) (test code = 354) CREATININE (BEAKER) (test 1.09 mg/dL 0.57-1.25 code = 358) GLUCOSE RANDOM (BEAKER) 101 mg/dL 70-105 (test code = 652) CALCIUM (BEAKER) (test code 8.8 mg/dL 8.4-10.2 = 697) EGFR (BEAKER) (test code = 64 mL/min/1.73 sq m ESTIMATED GFR IS NOT 1092) ACCURATE CRE ATININE CLEARANCE IN [place] EDICTING GLOMERULAR FILT RATION RATE. ESTIMATED GFR IS NOT APPLICABLE FOR DIALYSIS PATIENTS. School Vocational Educator ID - PINKY [id number] 07:06:00 Test Item Value Reference Range Interpretation Comments MAGNESIUM (BEAKER) (test code = 1.9 mg/dL 1.6-2.6 627) School Vocational Educator ID - PINKY [id number] 07:06:00 Test Item Value Reference Range Interpretation Comments PHOSPHORUS (BEAKER) (test code = 3.0 mg/dL 2.3-4.7 604) School Vocational Educator ID - PINKY MHEPATIC FUNCTION [id number] 07:06:00 Test Item Value Reference Range Interpretation Comments TOTAL PROTEIN (BEAKER) (test code = 6.7 gm/dL 6.0-8.3 770) ALBUMIN (BEAKER) (test code = 1145) 3.3 g/dL 3.5-5.0 L BILIRUBIN TOTAL (BEAKER) (test code 0.8 mg/dL 0.2-1.2 = 377) BILIRUBIN DIRECT (BEAKER) (test 0.6 mg/dL 0.1-0.5 H code = 706) ALKALINE PHOSPHATASE (BEAKER) (test 447 U/L 40-150 H code = 346) AST (SGOT) (BEAKER) (test code = 51 U/L 5-34 H 353) ALT (SGPT) (BEAKER) (test code = 49 U/L 6-55 347) School Vocational Educator ID - PINKY [facility] (HEMOGRAM ONLY)2020-05-31 06:15:00 Test Item Value Reference Range Interpretation Comments WHITE BLOOD CELL COUNT (BEAKER) 7.5 K/ L 3.5-10.5 (test code = 775) RED BLOOD CELL COUNT (BEAKER) 4.23 M/ L 4.63-6.08 L (test code = 761) HEMOGLOBIN (BEAKER) (test code = 13.5 GM/DL 13.7-17.5 L 410) HEMATOCRIT (BEAKER) (test code = 39.7 % 40.1-51.0 L 411) MEAN CORPUSCULAR VOLUME (BEAKER) 93.9 fL 79.0-92.2 H (test code = 753) MEAN CORPUSCULAR HEMOGLOBIN 31.9 pg 25.7-32.2 (BEAKER) (test code = 751) MEAN CORPUSCULAR HEMOGLOBIN CONC 34.0 GM/DL 32.3-36.5 (BEAKER) (test code = 752) RED CELL DISTRIBUTION WIDTH 12.8 % 11.6-14.4 (BEAKER) (test code = 412) PLATELET COUNT (BEAKER) (test 322 K/CU MM 150-450 code = 756) MEAN PLATELET VOLUME (BEAKER) 9.6 fL 9.4-12.4 (test code = 754) NUCLEATED RED BLOOD CELLS 0 /100 WBC 0-0 (BEAKER) (test code = 413) BASIC METABOLIC [id number] 06:50:00 Test Item Value Reference Range Interpretation Comments SODIUM (BEAKER) 140 meq/L 136-145 (test code = 381) POTASSIUM (BEAKER) 4.1 meq/L 3.5-5.1 (test code = 379) CHLORIDE (BEAKER) 106 meq/L 98-107 (test code = 382) CO2 (BEAKER) (test 27 meq/L 22-29 code = 355) BLOOD UREA NITROGEN 8 mg/dL 7-21 (BEAKER) (test code = 354) CREATININE (BEAKER) 1.17 mg/dL 0.57-1.25 (test code = 358) GLUCOSE RANDOM 109 mg/dL 70-105 H (BEAKER) (test code = 652) CALCIUM (BEAKER) 9.1 mg/dL 8.4-10.2 (test code = 697) EGFR (BEAKER) (test 59 mL/min/1.73 ESTIMA JAS GFR IS code = 1092) sq m NOT ACCURATE CREATININE CLEARANCE IN PREDICTING GLOMERULAR FILTRATION RATE . ESTIMATED GFR I S NOT APPLICABLE FOR DIALYSIS PATIEN TS. School Vocational Educator ID - [id number] 06:50:00 Test Item Value Reference Range Interpretation Comments MAGNESIUM (BEAKER) (test code = 2.0 mg/dL 1.6-2.6 627) School Vocational Educator ID - [id number] 06:50:00 Test Item Value Reference Range Interpretation Comments PHOSPHORUS (BEAKER) (test code = 3.1 mg/dL 2.3-4.7 604) School Vocational Educator ID - ADMINHEPATIC FUNCTION [id number] 06:50:00 Test Item Value Reference Range Interpretation Comments TOTAL PROTEIN (BEAKER) (test code = 7.1 gm/dL 6.0-8.3 770) ALBUMIN (BEAKER) (test code = 1145) 3.4 g/dL 3.5-5.0 L BILIRUBIN TOTAL (BEAKER) (test code 1.1 mg/dL 0.2-1.2 = 377) BILIRUBIN DIRECT (BEAKER) (test 0.7 mg/dL 0.1-0.5 H code = 706) ALKALINE PHOSPHATASE (BEAKER) (test 451 U/L 40-150 H code = 346) AST (SGOT) (BEAKER) (test code = 54 U/L 5-34 H 353) ALT (SGPT) (BEAKER) (test code = 54 U/L 6-55 347) School Vocational Educator ID - ADMINCBC (HEMOGRAM ONLY)2020-05-30 05:31:00 Test Item Value Reference Range Interpretation Comments WHITE BLOOD CELL COUNT (BEAKER) 7.1 K/ L 3.5-10.5 (test code = 775) RED BLOOD CELL COUNT (BEAKER) 4.07 M/ L 4.63-6.08 L (test code = 761) HEMOGLOBIN (BEAKER) (test code = 12.9 GM/DL 13.7-17.5 L 410) HEMATOCRIT (BEAKER) (test code = 38.5 % 40.1-51.0 L 411) MEAN CORPUSCULAR VOLUME (BEAKER) 94.6 fL 79.0-92.2 H (test code = 753) MEAN CORPUSCULAR HEMOGLOBIN 31.7 pg 25.7-32.2 (BEAKER) (test code = 751) MEAN CORPUSCULAR HEMOGLOBIN CONC 33.5 GM/DL 32.3-36.5 (BEAKER) (test code = 752) RED CELL DISTRIBUTION WIDTH 12.9 % 11.6-14.4 (BEAKER) (test code = 412) PLATELET COUNT (BEAKER) (test 310 K/CU MM 150-450 code = 756) MEAN PLATELET VOLUME (BEAKER) 9.4 fL 9.4-12.4 (test code = 754) NUCLEATED RED BLOOD CELLS 0 /100 WBC 0-0 (BEAKER) (test code = 413) MR, ABDOMEN, [id number] 20:04:00Unlisted Reason for Exam - Click Yes and Enter Reason Below->No [facility] : 1935 Sex: MFINAL REPORT TECHNIQUE: MRI of the abdomen and MRCP WITHOUT intravenous contrast. 3-D volume reconstructions were obtained to evaluate the biliary ductal system. INDICATION: Cholelithiasis, biliary obstruction suspected. COMPARISON: Ultrasound on 08/12/2019. FINDINGS: ABSENCE OF INTRAVENOUS CONTRAST DECREASES SENSITIVITY FOR DETECTION OF FOCAL LESIONS AND VASCULAR PATHOLOGY. EXAM IS ALSO LIMITED BY MOTION ARTIFACT. LOWER THORAX: Unremarkable. LIVER: No hepatic signal abnormality. No focal hepatic lesions. BILIARY: Gallbladder is unremarkable. No biliary ductal dilatation or filling defect. Common bile duct measures 0.4 cm in diameter.SPLEEN: No splenomegaly.PANCREAS: Pancreas demonstrates normal T1 signal intensity. There is mild atrophy of the body and tail of the pancreas. There is focal dilation of the main pancreatic duct in the body measuring up to 0.6 cm. There are multiple dilated sidebranches.. There are a few adjacent cystic foci measuring up to 0.6 cm. ADRENALS: No adrenal nodules.KIDNEYS/URETERS: No hydronephrosis or solid mass lesions. Bilateral renal cysts. The largest measures 3.4 cm in lower pole of the left kidney. 1.2 cm T1 hyperintense focus in lower pole of the right kidney likely representing cyst with hemorrhagic/proteinaceous fluid. PERITONE UM/RETROPERITONEUM: No free fluid.LYMPH NODES: No lymphadenopathy.VESSELS: Atherosclerotic changes in the abdominal aorta. There is no evidence of aneurysmal dilation.. GI TRACT: No distention or wall thickening. BONES AND SOFT TISSUES: Degenerative changes in the spine.. IMPRESSION:ABSENCE OF INTRAVENOUS CONTRAST DECREASES SENSITIVITY FOR DETECTION OF FOCAL LESIONS AND VASCULAR PATHOLOGY. EXAM IS ALSO LIMITED BY MOTION ARTIFACT. No biliary ductal dilation or choledocholithiasis. Atrophy of the pancreas with pancreatic ductal dilation and dilated sidebranches likely representing sequelae of priorpancreatitis. Bilateral renal cysts. Some of the lesions demonstrate T1 hyperintensity likely representing cyst with hemorrhagic/proteinaceous fluid. Signed: Thang San MDReport Verified Date/Time: 05/29/2020 20:04:18 Reading Location: [facility] B1 [id number] CT Body Reading Room [id number] 06:13:00 Test Item Value Reference Range Interpretation Comments MAGNESIUM (BEAKER) 1.9 mg/dL 1.6-2.6 Specimen slightly (test code = 627) hemolyzed School Vocational Educator ID - KYLE [id number] 06:13:00 Test Item Value Reference Range Interpretation Comments PHOSPHORUS (BEAKER) 2.9 mg/dL 2.3-4.7 Specimen slightly (test code = 604) hemolyzed School Vocational Educator ID - KYLE WBASIC METABOLIC [id number] 06:13:00 Test Item Value Reference Range Interpretation Comments SODIUM (BEAKER) 138 meq/L 136-145 (test code = 381) POTASSIUM (BEAKER) 4.0 meq/L 3.5-5.1 Specimen slightly (test code = 379) hemolyzed CHLORIDE (BEAKER) 107 meq/L 98-107 (test code = 382) CO2 (BEAKER) (test 22 meq/L 22-29 code = 355) BLOOD UREA NITROGEN 10 mg/dL 7-21 (BEAKER) (test code = 354) CREATININE (BEAKER) 1.23 mg/dL 0.57-1.25 Specimen slightly (test code = 358) hemolyzed GLUCOSE RANDOM 120 mg/dL 70-105 H (BEAKER) (test code = 652) CALCIUM (BEAKER) 8.8 mg/dL 8.4-10.2 (test code = 697) EGFR (BEAKER) (test 56 mL/min/1.73 ESTIMA JAS GFR IS code = 1092) sq m NOT ACCURATE CREATININE CLEARANCE IN PREDICTING GLOMERULAR FILTRATION RATE . ESTIMATED GFR I S NOT APPLICABLE FOR DIALYSIS PATIEN TS. School Vocational Educator ID - KYLE WHEPATIC FUNCTION [id number] 06:13:00 Test Item Value Reference Range Interpretation Comments TOTAL PROTEIN (BEAKER) 6.8 gm/dL 6.0-8.3 Speci men slightly (test code = 770) hemolyzed ALBUMIN (BEAKER) (test 3.3 g/dL 3.5-5.0 L Speci men slightly code = 1145) hemolyzed BILIRUBIN TOTAL 1.1 mg/dL 0.2-1.2 Specimen sli ghtly (BEAKER) (test code = hemoly zed 377) BILIRUBIN DIRECT 0.7 mg/dL 0.1-0.5 H Specimen sl ightly (BEAKER) (test code = hemoly zed 706) ALKALINE PHOSPHATASE 391 U/L 40-150 H (BEAKER) (test code = 346) AST (SGOT) (BEAKER) 63 U/L 5-34 H Specimen slightly (test code = 353) hemolyzed ALT (SGPT) (BEAKER) 60 U/L 6-55 H Specimen slightly (test code = 347) hemolyzed School Vocational Educator ID - KYLE WCBC (HEMOGRAM ONLY)2020-05-29 05:07:00 Test Item Value Reference Range Interpretation Comments WHITE BLOOD CELL COUNT (BEAKER) 7.5 K/ L 3.5-10.5 (test code = 775) RED BLOOD CELL COUNT (BEAKER) 4.11 M/ L 4.63-6.08 L (test code = 761) HEMOGLOBIN (BEAKER) (test code = 13.0 GM/DL 13.7-17.5 L 410) HEMATOCRIT (BEAKER) (test code = 39.2 % 40.1-51.0 L 411) MEAN CORPUSCULAR VOLUME (BEAKER) 95.4 fL 79.0-92.2 H (test code = 753) MEAN CORPUSCULAR HEMOGLOBIN 31.6 pg 25.7-32.2 (BEAKER) (test code = 751) MEAN CORPUSCULAR HEMOGLOBIN CONC 33.2 GM/DL 32.3-36.5 (BEAKER) (test code = 752) RED CELL DISTRIBUTION WIDTH 12.8 % 11.6-14.4 (BEAKER) (test code = 412) PLATELET COUNT (BEAKER) (test 320 K/CU MM 150-450 code = 756) MEAN PLATELET VOLUME (BEAKER) 9.5 fL 9.4-12.4 (test code = 754) NUCLEATED RED BLOOD CELLS 0 /100 WBC 0-0 (BEAKER) (test code = 413) [id number] 20:18:00 Test Item Value Reference Range Interpretation Comments LIPASE (BEAKER) (test code = 749) 36 U/L 8-78 School Vocational Educator ID - BSHEPATOBILIARY IMAGING W/ [id number] 17:32:00Unlisted Reason for Exam - Click Yes and Enter Reason Below->NoReason for exam:->chronic cholecystitis vs choledocholithiasis [facility] DOB: 1935 Sex: MFINAL REPORT PROCEDURE: HEPATOBILIARY SCAN with Sincalide Infusion CPT CODE: 82227 INDICATION: Cholecystitis PROTOCOL: 4.9 mCi of Tc-99m mebrofenin was injected intravenously. Images of the upper abdomen were obtained for approximately 60 minutes after tracer injection. 2.0 micrograms (0.02 ugm/kg) of sincalide was then infused intravenously over ap proximately 60 minutes with continuous imaging during the infusion. FINDINGS: Initial tracer uptake into the liver is physiological. Subsequent tracer clearance from the liver is mildly delayed. There is good visualization of the extrahepatic biliary duct and the gallbladder, and the tracer appears appropriately in the small bowel. Following injection of sincalide, serial images show good emptying of gallbladder contents into the small bowel. There is greater than 90% emptying of the gallbladder. IMPRESSION:1. Diffuse hepatocellular dysfunction 2.There is normal gallbladder filling and normal emptying in response to sincalide stimulation. No evidence of cholecystitis. Signed: Rossana Irizarry MDReport Verified Date/Time: 05/28/2020 17:32:27 Reading Location: [place] [id number] Reading Room RAD, CHEST, 1 VIEW, NON DEPT 2020-05-28 14:38:00Reason for exam:->for MRCP clearance, Pt. have a PacemakerShould this be performed at the bedside?->Yes [facility] : 1935 Sex: MFINAL REPORT INDICATION: for MRCP clearance, Pt. have a Pacemaker COMPARISON: None TECHNIQUE: Single frontal view of the chest. FINDINGS: Lungs and pleura: Clear lungs. Noeffusion.Heart and mediastinum: Normal heart size. Unremarkable mediastinal contours.Osseous structures: No acute abnormality.Other: None. IMPRESSION: No acute intrathoracic abnormality. Signed: JR Verduzco Robert MDReplyn Verified Date/Time: 05/28/2020 14:38:54 Reading Location: [facility] Reading Room [id number] 06:27:00 Test Item Value Reference Range Interpretation Comments MAGNESIUM (BEAKER) 1.9 mg/dL 1.6-2.6 Specimen moderately (test code = 627) hemolyzed School Vocational Educator ID - PIAYA [id number] 06:27:00 Test Item Value Reference Range Interpretation Comments PHOSPHORUS (BEAKER) 2.6 mg/dL 2.3-4.7 Specimen moderately (test code = 604) hemolyzed School Vocational Educator ID - PIAYA LBASIC METABOLIC [id number] 06:27:00 Test Item Value Reference Range Interpretation Comments SODIUM (BEAKER) 137 meq/L 136-145 (test code = 381) POTASSIUM (BEAKER) 4.4 meq/L 3.5-5.1 Specimen moderately (test code = 379) hemolyzed CHLORIDE (BEAKER) 106 meq/L 98-107 (test code = 382) CO2 (BEAKER) (test 23 meq/L 22-29 code = 355) BLOOD UREA NITROGEN 14 mg/dL 7-21 (BEAKER) (test code = 354) CREATININE (BEAKER) 1.26 mg/dL 0.57-1.25 H Specimen moderately (test code = 358) hemolyzed GLUCOSE RANDOM 111 mg/dL 70-105 H (BEAKER) (test code = 652) CALCIUM (BEAKER) 8.8 mg/dL 8.4-10.2 (test code = 697) EGFR (BEAKER) (test 54 mL/min/1.73 ESTIMA JAS GFR IS code = 1092) sq m NOT ACCURATE CREATININE CLEARANCE IN PREDICTING GLOMERULAR FILTRATION RATE . ESTIMATED GFR I S NOT APPLICABLE FOR DIALYSIS PATIEN TS. School Vocational Educator ID - PIAYA LHEPATIC FUNCTION [id number] 06:27:00 Test Item Value Reference Range Interpretation Comments TOTAL PROTEIN (BEAKER) 6.6 gm/dL 6.0-8.3 Speci men moderately (test code = 770) hemolyzed ALBUMIN (BEAKER) (test 3.0 g/dL 3.5-5.0 L Speci men moderately code = 1145) hemolyzed BILIRUBIN TOTAL 1.5 mg/dL 0.2-1.2 H Specimen mod erately (BEAKER) (test code = hemoly zed 377) BILIRUBIN DIRECT 0.6 mg/dL 0.1-0.5 H Specimen mo derately (BEAKER) (test code = hemoly zed 706) ALKALINE PHOSPHATASE 353 U/L 40-150 H (BEAKER) (test code = 346) AST (SGOT) (BEAKER) 94 U/L 5-34 H Specimen moderately (test code = 353) hemolyzed ALT (SGPT) (BEAKER) 73 U/L 6-55 H Specimen moderately (test code = 347) hemolyzed School Vocational Educator ID - PIAYA LCBC (HEMOGRAM ONLY)2020-05-28 05:09:00 Test Item Value Reference Range Interpretation Comments WHITE BLOOD CELL COUNT (BEAKER) 7.1 K/ L 3.5-10.5 (test code = 775) RED BLOOD CELL COUNT (BEAKER) 4.01 M/ L 4.63-6.08 L (test code = 761) HEMOGLOBIN (BEAKER) (test code = 12.7 GM/DL 13.7-17.5 L 410) HEMATOCRIT (BEAKER) (test code = 38.5 % 40.1-51.0 L 411) MEAN CORPUSCULAR VOLUME (BEAKER) 96.0 fL 79.0-92.2 H (test code = 753) MEAN CORPUSCULAR HEMOGLOBIN 31.7 pg 25.7-32.2 (BEAKER) (test code = 751) MEAN CORPUSCULAR HEMOGLOBIN CONC 33.0 GM/DL 32.3-36.5 (BEAKER) (test code = 752) RED CELL DISTRIBUTION WIDTH 12.7 % 11.6-14.4 (BEAKER) (test code = 412) PLATELET COUNT (BEAKER) (test 282 K/CU MM 150-450 code = 756) MEAN PLATELET VOLUME (BEAKER) 9.4 fL 9.4-12.4 (test code = 754) NUCLEATED RED BLOOD CELLS 0 /100 WBC 0-0 (BEAKER) (test code = 413) URINALYSIS W/ REFLEX URINE [id number] 17:16:00 Test Item Value Reference Range Interpretation Comments COLOR (BEAKER) (test code = 470) Yellow CLARITY (BEAKER) (test code = 469) Clear SPECIFIC GRAVITY UA (BEAKER) (test 1.024 1.001-1.035 code = 468) PH UA (BEAKER) (test code = 467) 6.0 5.0-8.0 PROTEIN UA (BEAKER) (test code = 30 mg/dL Negative A 464) GLUCOSE UA (BEAKER) (test code = Negative Negative 365) KETONES UA (BEAKER) (test code = Negative Negative 371) BILIRUBIN UA (BEAKER) (test code = Positive Negative A 462) BLOOD UA (BEAKER) (test code = 461) Small Negative A NITRITE UA (BEAKER) (test code = Negative Negative 465) LEUKOCYTE ESTERASE UA (BEAKER) Negative Negative (test code = 466) UROBILINOGEN UA (BEAKER) (test code 2.0 mg/dL 0.2-1.0 H = 463) RBC UA (BEAKER) (test code = 519) 2 /HPF WBC UA (BEAKER) (test code = 520) 2 /HPF MUCUS (BEAKER) (test code = 1574) Rare SOURCE(BEAKER) (test code = 2795) School Vocational Educator ID - [auto]School Vocational Educator ID - techCOMPREHENSIVE METABOLIC [id number] 14:32:00 Test Item Value Reference Range Interpretation Comments TOTAL PROTEIN 6.9 gm/dL 6.0-8.3 (BEAKER) (test code = 770) ALBUMIN (BEAKER) 3.4 g/dL 3.5-5.0 L (test code = 1145) ALKALINE PHOSPHATASE 358 U/L 40-150 H (BEAKER) (test code = 346) BILIRUBIN TOTAL 2.4 mg/dL 0.2-1.2 H (BEAKER) (test code = 377) SODIUM (BEAKER) (test 137 meq/L 136-145 code = 381) POTASSIUM (BEAKER) 4.1 meq/L 3.5-5.1 (test code = 379) CHLORIDE (BEAKER) 106 meq/L 98-107 (test code = 382) CO2 (BEAKER) (test 22 meq/L 22-29 code = 355) BLOOD UREA NITROGEN 17 mg/dL 7-21 (BEAKER) (test code = 354) CREATININE (BEAKER) 1.20 mg/dL 0.57-1.25 (test code = 358) GLUCOSE RANDOM 104 mg/dL 70-105 (BEAKER) (test code = 652) CALCIUM (BEAKER) 9.1 mg/dL 8.4-10.2 (test code = 697) AST (SGOT) (BEAKER) 95 U/L 5-34 H (test code = 353) ALT (SGPT) (BEAKER) 89 U/L 6-55 H (test code = 347) EGFR (BEAKER) (test 57 mL/min/1.73 ESTIMA JAS GFR IS code = 1092) sq m NOT ACCURATE CREATININE CLEARANCE IN PREDICTING GLOMERULAR FILTRATION RATE . ESTIMATED GFR I S NOT APPLICABLE FOR DIALYSIS PATIEN TS. School Vocational Educator ID - JOHN CCBC W/PLT COUNT & AUTO [id number] 13:52:00 Test Item Value Reference Range Interpretation Comments WHITE BLOOD CELL COUNT (BEAKER) 7.3 K/ L 3.5-10.5 (test code = 775) RED BLOOD CELL COUNT (BEAKER) 4.19 M/ L 4.63-6.08 L (test code = 761) HEMOGLOBIN (BEAKER) (test code = 13.3 GM/DL 13.7-17.5 L 410) HEMATOCRIT (BEAKER) (test code = 39.9 % 40.1-51.0 L 411) MEAN CORPUSCULAR VOLUME (BEAKER) 95.2 fL 79.0-92.2 H (test code = 753) MEAN CORPUSCULAR HEMOGLOBIN 31.7 pg 25.7-32.2 (BEAKER) (test code = 751) MEAN CORPUSCULAR HEMOGLOBIN CONC 33.3 GM/DL 32.3-36.5 (BEAKER) (test code = 752) RED CELL DISTRIBUTION WIDTH 12.8 % 11.6-14.4 (BEAKER) (test code = 412) PLATELET COUNT (BEAKER) (test 283 K/CU MM 150-450 code = 756) MEAN PLATELET VOLUME (BEAKER) 9.3 fL 9.4-12.4 L (test code = 754) NUCLEATED RED BLOOD CELLS 0 /100 WBC 0-0 (BEAKER) (test code = 413) NEUTROPHILS RELATIVE PERCENT 72 % (BEAKER) (test code = 429) LYMPHOCYTES RELATIVE PERCENT 12 % (BEAKER) (test code = 430) MONOCYTES RELATIVE PERCENT 9 % (BEAKER) (test code = 431) EOSINOPHILS RELATIVE PERCENT 5 % (BEAKER) (test code = 432) BASOPHILS RELATIVE PERCENT 1 % (BEAKER) (test code = 437) NEUTROPHILS ABSOLUTE COUNT 5.31 K/ L 1.78-5.38 (BEAKER) (test code = 670) LYMPHOCYTES ABSOLUTE COUNT 0.91 K/ L 1.32-3.57 L (BEAKER) (test code = 414) MONOCYTES ABSOLUTE COUNT (BEAKER) 0.66 K/ L 0.30-0.82 (test code = 415) EOSINOPHILS ABSOLUTE COUNT 0.36 K/ L 0.04-0.54 (BEAKER) (test code = 416) BASOPHILS ABSOLUTE COUNT (BEAKER) 0.07 K/ L 0.01-0.08 (test code = 417) IMMATURE GRANULOCYTES-RELATIVE 0 % 0-1 PERCENT (BEAKER) (test code = 2801) SARS-COV2/RT-PCR ([facility])2020-05-27 11:57:00 Test Item Value Reference Range Interpretation Comments SARS-COV2/RT-PCR (test Negative Not Detected, Negative, code = 4185141) See external report for linked test SARS-COV-2 PERFORMING LAB [facility] (test code = 1674372) Negative result for this test determines that SARS-CoV-2 RNA was not present in the specimen above the Limit of Detection (LOD). However, Negative results do not preclude SARS-CoV-2 infection and should not be used as the sole basis for treatment or patient management decisions. Negative results mustbe combined with clinical observations, patient history, and epidemiological information. A false negative result may occur if a specimen is improperly collected, transported or handled. A false negative result should be considered if patient's recent exposures or clinical presentation indicate that COVID-19 (SARS-CoV-2) is likely and diagnostic tests for other causes of illness are negative. Re-testing should be considered in cases of suspected false negatives.The limit of detection for this assay is 800 copies/mL.This SARS CoV-2 test is a real-time RT-PCR test intended for the qualitative detection of nucleic acid from SARS-CoV-2 in a nasopharyngeal swab specimen collected from individuals suspected of COVID-19 by their healthcare provider.This test has not been Food and Drug Administration (FDA) cleared or approved. This is a modified version of an approved Emergency Use Authorization (EUA) and is in the process of review by the FDA. Once authorized by the FDA, the issued EUA will be effective until the declaration that circumstances exist justifying the authorization of the emergency use of in vitro diagnostic tests for detection and/or diagnosis of COVID-19 is terminated under Section 564(b)(2) of the Act or the EUA is revoked under Section 564(g) of the Act.Fact Sheet for Healthcare Providers:https://www.Wysiwyg.TuneWiki/sites/default/files/product/documents/Fact_Shee k_GX_Srsesfwgw_Sefh_KTOX-EcL-3.pdfFact Sheet for Healthcare Patients:https://www.Wysiwyg.TuneWiki/sites/default/files/product/ documents/Aaxa_Iyjod_Fiavtkbf_Anmx_GYOL-LmM-0.pdfPerforming Laboratory:[facility], [place] [address]A/S, ABDOMINAL, [id number] 11:53:00Abdomen limited area? Add comment if clarification is needed.->Right upper quadrantReason for exam:->Assess for cholecystitis or choledocholithiasis [facility] : 1935 Sex: MFINAL REPORT TECHNIQUE: Grayscale ultrasound of the right abdomen. INDICATION: Assess for cholecystitis or choledocholithiasis. COMPARISON: None. FINDINGS: MIDLINE VASCULATURE: The visualized inferior vena cava is unremarkable. The aorta was not well visualized due to overlying bowel gas LIVER: Smooth liver contour. No focal lesions. The main portal vein is patent and measures 0.8 cm in diameter. BILIARY:Gallbladder: There are either nonshadowing stones or sludge. The gallbladder wall thickening. No distention or pericholecystic fluid. Negative sonographic Paulino sign.The common bile duct was unable to be visualized PANCREAS: Not well visualized due to overlying bowel gas. PERITONEUM: No free fluid. RIGHT KIDNEY: Normal in size. No hydronephrosis. No sonographicallyevident solid mass lesion. IMPRESSION: 1.There is either sludge or nonshadowing stones in the gallbladder with a thickened gallbladder wall. This is nonspecific but could be due to acute cholecystitisin the appropriate clinical setting. This can be assessed on the already ordered MRCP. 2.The common bile duct was not well visualized. Signed: Bentley Alfaro MDReport Verified Date/Time: 05/27/2020 11:53:24 Reading Location: [address] Body Reading Room TROPONIN [id number] 23:43:00 Test Item Value Reference Range Interpretation Comments TROPONIN I (BEAKER) (test code = 0.25 ng/mL 0.00-0.03 [facility]) Troponin I (TnI) levels must be interpreted in the context of the presenting symptoms and the clinical findings. Elevated TnI levels indicate myocardial damage, but are not specific for ischemic heart disease. Elevated TnI levels are seen in patients with other cardiac conditions (including myocarditis and congestive heart failure), and slight TnI elevations occur in patients with other conditions, including sepsis, renal failure, acidosis, acute neurological disease, and persistent tachyarrhythmia.School Vocational Educator ID - DBTROPONIN [id number] 17:25:00 Test Item Value Reference Range Interpretation Comments TROPONIN I (BEAKER) (test code = 0.29 ng/mL 0.00-0.03 397) Troponin I (TnI) levels must be interpreted in the context of the presenting symptoms and the clinical findings. Elevated TnI levels indicate myocardial damage, but are not specific for ischemic heart disease. Elevated TnI levels are seen in patients with other cardiac conditions (including myocarditis and congestive heart failure), and slight TnI elevations occur in patients with other conditions, including sepsis, renal failure, acidosis, acute neurological disease, and persistent tachyarrhythmia.School Vocational Educator ID - DBCOMPREHENSIVE METABOLIC [id number] 14:52:00 Test Item Value Reference Range Interpretation Comments TOTAL PROTEIN 7.0 gm/dL 6.0-8.3 (BEAKER) (test code = 770) ALBUMIN (BEAKER) 3.6 g/dL 3.5-5.0 (test code = 1145) ALKALINE PHOSPHATASE 398 U/L 40-150 H (BEAKER) (test code = 346) BILIRUBIN TOTAL 2.9 mg/dL 0.2-1.2 H (BEAKER) (test code = 377) SODIUM (BEAKER) (test 134 meq/L 136-145 L code = 381) POTASSIUM (BEAKER) 4.3 meq/L 3.5-5.1 (test code = 379) CHLORIDE (BEAKER) 101 meq/L 98-107 (test code = 382) CO2 (BEAKER) (test 23 meq/L 22-29 code = 355) BLOOD UREA NITROGEN 18 mg/dL 7-21 (BEAKER) (test code = 354) CREATININE (BEAKER) 1.24 mg/dL 0.57-1.25 (test code = 358) GLUCOSE RANDOM 103 mg/dL 70-105 (BEAKER) (test code = 652) CALCIUM (BEAKER) 9.0 mg/dL 8.4-10.2 (test code = 697) AST (SGOT) (BEAKER) 149 U/L 5-34 H (test code = 353) ALT (SGPT) (BEAKER) 121 U/L 6-55 H (test code = 347) EGFR (BEAKER) (test 55 mL/min/1.73 ESTIMA JAS GFR IS code = 1092) sq m NOT ACCURATE CREATININE CLEARANCE IN PREDICTING GLOMERULAR FILTRATION RATE . ESTIMATED GFR I S NOT APPLICABLE FOR DIALYSIS PATIEN TS. School Vocational Educator ID - JOHN CSpecimen slightly ictericPROTHROMBIN [id number] 14:38:00 Test Item Value Reference Range Interpretation Comments PROTIME (BEAKER) (test code = 14.1 seconds 11.9-14.2 759) INR (BEAKER) (test code = 370) 1.12 <=5.90 Effective 10/20/2018: PT Reference Range ChangeNew: 11.9-14.2 Previous: 11.7- 14.7RECOMMENDED COUMADIN/WARFARIN INR THERAPY RANGESSTANDARD DOSE: 2.0-3.0 Includes: PROPHYLAXIS for venous thrombosis, systemic embolization; TREATMENT for venous thrombosis and/or pulmonary embolus.HIGH RISK: Target INR is2.5-3.5 for patients wiht mechanical heart valves.CBC W/PLT COUNT & AUTO [id number] 14:31:00 Test Item Value Reference Range Interpretation Comments WHITE BLOOD CELL COUNT (BEAKER) 9.7 K/ L 3.5-10.5 (test code = 775) RED BLOOD CELL COUNT (BEAKER) 4.22 M/ L 4.63-6.08 L (test code = 761) HEMOGLOBIN (BEAKER) (test code = 13.3 GM/DL 13.7-17.5 L 410) HEMATOCRIT (BEAKER) (test code = 40.8 % 40.1-51.0 411) MEAN CORPUSCULAR VOLUME (BEAKER) 96.7 fL 79.0-92.2 H (test code = 753) MEAN CORPUSCULAR HEMOGLOBIN 31.5 pg 25.7-32.2 (BEAKER) (test code = 751) MEAN CORPUSCULAR HEMOGLOBIN CONC 32.6 GM/DL 32.3-36.5 (BEAKER) (test code = 752) RED CELL DISTRIBUTION WIDTH 12.7 % 11.6-14.4 (BEAKER) (test code = 412) PLATELET COUNT (BEAKER) (test 296 K/CU MM 150-450 code = 756) MEAN PLATELET VOLUME (BEAKER) 9.3 fL 9.4-12.4 L (test code = 754) NUCLEATED RED BLOOD CELLS 0 /100 WBC 0-0 (BEAKER) (test code = 413) NEUTROPHILS RELATIVE PERCENT 77 % (BEAKER) (test code = 429) LYMPHOCYTES RELATIVE PERCENT 12 % (BEAKER) (test code = 430) MONOCYTES RELATIVE PERCENT 9 % (BEAKER) (test code = 431) EOSINOPHILS RELATIVE PERCENT 2 % (BEAKER) (test code = 432) BASOPHILS RELATIVE PERCENT 0 % (BEAKER) (test code = 437) NEUTROPHILS ABSOLUTE COUNT 7.42 K/ L 1.78-5.38 H (BEAKER) (test code = 670) LYMPHOCYTES ABSOLUTE COUNT 1.18 K/ L 1.32-3.57 L (BEAKER) (test code = 414) MONOCYTES ABSOLUTE COUNT (BEAKER) 0.84 K/ L 0.30-0.82 H (test code = 415) EOSINOPHILS ABSOLUTE COUNT 0.15 K/ L 0.04-0.54 (BEAKER) (test code = 416) BASOPHILS ABSOLUTE COUNT (BEAKER) 0.04 K/ L 0.01-0.08 (test code = 417) IMMATURE GRANULOCYTES-RELATIVE 0 % 0-1 PERCENT (BEAKER) (test code = 7231)
--- NOTE | 2021-11-07 21:18 | ER ---
Nurse's Notes [facility] Name: Leanna Judge Age: 86 yrs Sex: Male : 1935 Arrival Date: 11/07/2021 Time: 19:56 Bed 16 Private MD: Diagnosis: Essential (primary) hypertension Presentation: 11/07 20:53 Chief complaint: Patient states: "I just want you to check my blood pressure and let me ll3 go home, my is 80% disabled and I need to get home to her, my doctor called this afternoon and told me to come here and get checked out, my BP was low at home today, its been going on for the past 2 weeks". Coronavirus screen: Vaccine status: Patient reports receiving the 2nd dose of the covid vaccine. At this time, the client does not indicate any symptoms associated with coronavirus-19. Ebola Screen: No symptoms or risks identified at this time. Initial Sepsis Screen: Does the patient meet any 2 criteria? No. Patient's initial sepsis screen is negative. Does the patient have a suspected source of infection? No. Patient's initial sepsis screen is negative. Risk Assessment: Do you want to hurt yourself or someone else? Patient reports no desire to harm self or others. Onset of symptoms is unknown. 20:53 Method Of Arrival: Ambulatory ll3 20:53 Acuity: GRACIE 3 ll3 Triage Assessment: 20:57 General: Appears comfortable, Behavior is calm, cooperative. Pain: Denies pain. Neuro: ll3 Level of Consciousness is awake, alert, obeys commands, Oriented to person, place, time, situation. Cardiovascular: Reports Low BP at home for past 2 weeks, lightheaded this morning Denies lightheadedness, nausea, syncope, Patient's skin is warm and dry. Respiratory: Respiratory effort is even, unlabored, Respiratory pattern is regular, symmetrical. Derm: Skin is pink, warm \\T\\ dry. Musculoskeletal: Circulation, motion, and sensation intact. Historical: - Allergies: 20:57 No Known Allergies; ll3 - Immunization history:: Client reports receiving the 2nd dose of the Covid vaccine. - Social history:: Smoking status: Patient denies any tobacco usage or history of. Screenin:59 Abuse screen: Denies threats or abuse. Nutritional screening: No deficits noted. ll3 Tuberculosis screening: No symptoms or risk factors identified. 21:31 Fall Risk No fall in past 12 months (0 pts). No secondary diagnosis (0 pts). No IV (0 ll3 pts). Ambulatory Aid- None/Bed Rest/Nurse Assist (0 pts). Gait- Normal/Bed Rest/Wheelchair (0 pts) Mental Status- Oriented to own ability (0 pts). Total Henry Fall Scale indicates No Risk (0-24 pts). Assessment: 20:59 General: See triage assessment. ll3 Vital Signs: 20:53 BP 130 / 69; Pulse 65; Resp 18; Temp 97.6(TE); Pulse Ox 98% on R/A; Weight 97.07 kg ll3 (R); Height 5 ft. 8 in. (172.72 cm) (R); Pain 0/10; 20:53 Body Mass Index 32.54 (97.07 kg, 172.72 cm) ll3 ED Course: 19:56 Patient arrived in ED. ag3 20:46 Nik White MD is Attending Physician. [facility] 20:56 Triage completed. ll3 20:57 Arm band placed on Patient placed in a hallway bed, on a stretcher, on pulse oximetry. ll3 20:59 Patient has correct armband on for positive identification. Placed in gown. Bed in low ll3 position. Call light in reach. Side rails up X 1. 21:18 Supa Graham MD is Referral Physician. curt 21:27 Kvng Jiménez, ASIF is Primary Nurse. ll3 21:31 No provider procedures requiring assistance completed. Patient did not have IV access ll3 during this emergency room visit. Administered Medications: No medications were administered Medication: 21:31 VIS not applicable for this client. ll3 Outcome: 21:17 Discharge ordered by . curt 21:32 Discharged to home ambulatory, with family. ll3 21:32 Condition: stable 21:32 Discharge instructions given to patient, family, Instructed on discharge instructions, follow up and referral plans. Demonstrated understanding of instructions, follow-up care. 21:45 Patient left the ED. ll3 Signatures: Nik White MD MD cha Gomez, Alice ag3 Kvng Jiménez, ASIF RN ll3
--- NOTE | 2021-11-07 21:18 | EDPHYS ---
Physician Documentation [facility] Name: Leanna Judge Age: 86 yrs Sex: Male : 1935 Arrival Date: 11/07/2021 Time: 19:56 Bed 16 Private MD: ED Physician Nik White HPI: 11/07 21:12 This 86 yrs old Male presents to ER via Ambulatory with complaints of Blood curt Pressure Problem. 21:12 I JUST WANT TO CHECK MY BLOOD PRESSURE. Onset: The symptoms/episode began/occurred 3 curt day(s) ago. Severity of symptoms: At their worst the symptoms were mild in the emergency department the symptoms have resolved. The patient has experienced similar episodes in the past, several times. Historical: - Allergies: 20:57 No Known Allergies; ll3 - Immunization history:: Client reports receiving the 2nd dose of the Covid vaccine. - Social history:: Smoking status: Patient denies any tobacco usage or history of. ROS: 21:15 Constitutional: Negative for fever, chills, and weight loss, Eyes: Negative for injury, curt pain, redness, and discharge, ENT: Negative for injury, pain, and discharge, Neck: Negative for injury, pain, and swelling, Cardiovascular: Negative for chest pain, palpitations, and edema, Respiratory: Negative for shortness of breath, cough, wheezing, and pleuritic chest pain, Abdomen/GI: Negative for abdominal pain, nausea, vomiting, diarrhea, and constipation, Back: Negative for injury and pain, : Negative for injury, bleeding, discharge, and swelling, MS/Extremity: Negative for injury and deformity, Skin: Negative for injury, rash, and discoloration, Neuro: Negative for headache, weakness, numbness, tingling, and seizure, Psych: Negative for depression, anxiety, suicide ideation, homicidal ideation, and hallucinations, Allergy/Immunology: Negative for hives, rash, and allergies, Endocrine: Negative for neck swelling, polydipsia, polyuria, polyphagia, and marked weight changes, Hematologic/Lymphatic: Negative for swollen nodes, abnormal bleeding, and unusual bruising. Exam: 21:15 Constitutional: This is a well developed, well nourished patient who is awake, alert, curt and in no acute distress. Head/Face: Normocephalic, atraumatic. Eyes: Pupils equal round and reactive to light, extra-ocular motions intact. Lids and lashes normal. Conjunctiva and sclera are non-icteric and not injected. Cornea within normal limits. Periorbital areas with no swelling, redness, or edema. ENT: Nares patent. No nasal discharge, no septal abnormalities noted. Tympanic membranes are normal and external auditory canals are clear. Oropharynx with no redness, swelling, or masses, exudates, or evidence of obstruction, uvula midline. Mucous membranes moist. Neck: Trachea midline, no thyromegaly or masses palpated, and no cervical lymphadenopathy. Supple, full range of motion without nuchal rigidity, or vertebral point tenderness. No Meningismus. Chest/axilla: Normal chest wall appearance and motion. Nontender with no deformity. No lesions are appreciated. Cardiovascular: Regular rate and rhythm with a normal S1 and S2. No gallops, murmurs, or rubs. Normal PMI, no JVD. No pulse deficits. Respiratory: Lungs have equal breath sounds bilaterally, clear to auscultation and percussion. No rales, rhonchi or wheezes noted. No increased work of breathing, no retractions or nasal flaring. Abdomen/GI: Soft, non-tender, with normal bowel sounds. No distension or tympany. No guarding or rebound. No evidence of tenderness throughout. Back: No spinal tenderness. No costovertebral tenderness. Full range of motion. Skin: Warm, dry with normal turgor. Normal color with no rashes, no lesions, and no evidence of cellulitis. MS/ Extremity: Pulses equal, no cyanosis. Neurovascular intact. Full, normal range of motion. Neuro: Awake and alert, GCS 15, oriented to person, place, time, and situation. Cranial nerves II-XII grossly intact. Motor strength 5/5 in all extremities. Sensory grossly intact. Cerebellar exam normal. Normal gait. Psych: Awake, alert, with orientation to person, place and time. Behavior, mood, and affect are within normal limits. Vital Signs: 20:53 BP 130 / 69; Pulse 65; Resp 18; Temp 97.6(TE); Pulse Ox 98% on R/A; Weight 97.07 kg ll3 (R); Height 5 ft. 8 in. (172.72 cm) (R); Pain 0/10; 20:53 Body Mass Index 32.54 (97.07 kg, 172.72 cm) ll3 MDM: 20:[address] [facility] 21:16 Data reviewed: vital signs, nurses notes. Data interpreted: monitoring coordinator: rate is 65 curt beats/min, rhythm is regular, Pulse oximetry: on room air is 98 %. 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 11/07 20:47 Order name: Cardiac monitoring; Complete Time: 21:27 [facility] 11/07 20:47 Order name: O2 Per Protocol; Complete Time: 21:27 [facility] 11/07 20:47 Order name: O2 Sat Monitoring; Complete Time: 21:27 curt Administered Medications: No medications were administered Disposition Summary: 11/07/21 21:17 Discharge Ordered Location: Home curt Problem: new curt Symptoms: have improved curt Condition: Stable curt Diagnosis - Essential (primary) hypertension curt Followup: curt - With: Private Physician - When: 2 - 3 days - Reason: Recheck today's complaints, Continuance of care, Re-evaluation by your physician Followup: curt - With: Supa Graham MD - When: 2 - 3 days - Reason: Recheck today's complaints, Continuance of care, Re-evaluation by your physician Discharge Instructions: - Discharge Summary Sheet curt - Hypertension, Adult curt - Hypertension, Adult, [id number]-[id number] curt - How to Take Your Blood Pressure, [id number] curt - Managing Your Hypertension curt Forms: - Medication Reconciliation Form curt - Thank You Letter curt - Antibiotic Education curt - Prescription Opioid Use curt Signatures: Dispatcher [employer] [facility] Nik White MD MD cha Loubet, Lynsea RN RN ll3 Corrections: (The following items were deleted from the chart) 21:19 20:47 Chest Single View+RAD.RAD.BRZ ordered. [facility] 21: 20:47 EKG - Nurse/Tech ordered. [facility] ll3 : 20:47 IV Saline Lock ordered. [facility] ll3 : 20:47 Labs collected and sent ordered. [facility] ll3 : 20:47 Urine Dipstick-Ancillary ordered. [facility] ll3
[2021-11-07 21:49] VITALS: BP 130/69; TEMP 97.6; O2SAT 98
== END 2021-11-07 21:45 | disposition home or self-care (01) ==
LOC: ER 19:50
DX: I10 Essential (primary) hypertension (principal)
CPT/HCPCS: 99283

== ENCOUNTER 2022-04-18 08:13 | Emergency (ER) | payer OTHER, BC ==
--- OUTSIDE RECORDS SUMMARY | 2022-04-18 08:16 | XMS REPORT | Continuity of Care Document ---
:1935 Author Organization [facility] t Address [address] [place] [address] Care Team Providers Name Role Phone Asked, No Pcp Primary Care Physician Unavailable ERIKA HINOJOSA Attending Clinician Unavailable GINA BOSWELL Attending Clinician Unavailable ERIKA HINOJOSA Admitting Clinician Unavailable HORACIO LUGO Admitting Clinician Unavailable GINA BOSWELL Admitting Clinician Unavailable Payers Payer Name Policy Type Policy Number Effective Date Expiration Date S ource MEDICARE A B [id number] 1998 00:00:00 BCBS FED [id number] 2019 00:00:00 Problems Condition Condition Condition Status Onset Resolution Last Treating Co mments Source Name Details Category Date Date Treatment Clinician Date Acute Acute Disease Active [facility] cholecysti cholecysti 05-27 Nany kes tis due to tis due to 00:00: Nd dical biliary biliary 00 Center calculus calculus Cardiac Cardiac Disease Active [facility] arrhythmia arrhythmia 05-31 st 00:00: Hospita 00 l Allergies, Adverse Reactions, Alerts Allergy Allergy Status Severity Reaction(s) Onset Inactive Treating Comm ents Source Name Type Date Date Clinician NO KNOWN Allergy Active [facility] Family History Family Member Diagnosis Comments Start Date Stop Date Source Natural father Stroke [facility] Natural mother Cancer [facility] Natural mother Heart disease [facility] Natural brother Cancer [facility] Natural sister [facility] Social History Social Habit Start Date Stop Date Quantity Comments Source History SDOH Baptism Alcohol Std Drinks Hospit al History SDOH [facility] Alcohol intake 2020-05-31 2020-05-31 Ex-drinker [facility] History SDOH 2019-05-31 2019-05-31 1 Baptism Alcohol Frequency 00:00:00 00:00:00 Hospita l Sex Assigned At [birth year] MOLLY [facility] kes 00:00:00 [facility]00 [facility] Smoking Status Start Date Stop Date Source Former smoker 2020-05-26 00:00:00 2020-05-26 00:00:[address] [facility] Never smoked tobacco [facility] Medications Ordered Filled Start Stop Current Ordering Indication Dosage Frequency Signature Comments Components Source Medication Medication Date Date Medication? Clinician (SIG) Name Name metoprolol Yes 25mg QD Take [address] succinate 1-07 [facility] (TOPROL-XL) 13:43: daily. Medi kilo 25 MG 24 hr 19 Center tablet clopidogreL Yes 75mg QD Take [address] [address] (PLAVIX) 75 07 by mouth [facility] mg tablet 13:43: daily. Medica l 19 Center valsartan Yes 320mg QD Take [address] (DIOVAN) 1-07 mg by [facility] 320 MG 13:43: mouth Medical tablet 19 daily. [place] escitalopra Yes 10mg QD Take [address] m oxalate -07 by [facility] (LEXAPRO) 13:43: daily. Medica l 10 MG 19 Center tablet gabapentin Yes 100mg Q.[id number] Take [address] (NEURONTIN) 1-07 [id number] mg by L [facility]kes 100 MG 13:43: 3D mouth 3 Medical capsule 19 (three) Center times daily. allopurinoL Yes 100mg QD Take [address] (ZYLOPRIM) 1-07 mg by [facility] 100 MG 13:43: mouth Medical tablet 19 daily. [place] aspirin 81 Yes 81mg QD Take [address] MG EC 1-07 by mouth [facility] tablet 13:43: daily. Medical 19 Center nitroglycer Yes .6mg Place 0.[address] in 1-07 mg under [facility] (NITROSTAT) 13:43: the tongue Medical 0.6 MG SL 19 every 5 Center tablet (five) minutes as needed for Chest pain Put 1 pill under tongue every 5min as needed for chest pain.No more than 3 doses in 15min.Call 911 if pain is unrelieved 5min after 1st dose . omeprazole Yes 20mg Take [address] (PriLOSEC) 05-31 by mouth [facility] 20 MG 13:43: daily as Medical capsule 19 needed. Center atorvastati Yes 40mg QD Take 0.[address] (LIPITOR) 05-31 tablets [facility] 80 MG 00:00: (40 mg Medical tablet 00 total) by Center mouth daily. simvastatin 2019-0 Yes 40mg QD Take 40 mg [facility] (ZOCOR) 40 06-[address] MG tablet 12:41: nightly. Hosp phyllis 47 l gabapentin 2020-0 Yes 100mg Q.[id number] Take 100 [facility] (NEURONTIN) -09 [id number] mg by s t 100 mg 12:41: 3D mouth 3 Hospita capsule 47 (three) l times a day. valsartan 2020-0 Yes 160mg QD Take 160 [facility] (DIOVAN) 1-[address] 160 MG 12:41: mouth Hospita tablet 47 daily. l allopurinol 2020-0 Yes 100mg QD Take 100 M [facility] (ZYLOPRIM) 1-[address] 100 MG 12:41: mouth Hospita tablet 47 daily. l nitroglycer 2020-[address] 0.4 M ethodi in 1-[address] (NITROSTAT) 12:41: the tongue Hospita 0.4 MG SL 47 every 5 l tablet (five) minutes as needed for chest pain. Immunizations Ordered Immunization Filled Immunization Date Status Commen ts Source Name Name PFIZER COVID-19 MRNA 2020-07-13 Completed Meth odist VACCINATION 00:00:00 [facility] PFIZER COVID-19 MRNA 2020-06-22 Completed Meth odist VACCINATION 00:00:00 Hospital Vital Signs Vital Name Observation Time Observation Value Comments Source HEIGHT 2020-05-26 13:26:00 179.8 cm WEIGHT 2020-05-26 13:26:00 98.249 kg HEIGHT 2020-05-26 13:26:00 179.8 cm WEIGHT 2020-05-26 13:26:00 98.249 kg Procedures This patient has no known procedures. Plan of Care Planned Activity Planned Date Details Comments Source Future Scheduled 2022-03-30 HEPATITIS B VACCINES Met [facility] Test 22:04:28 (1 of 3 - 3-dose series) [code = HEPATITIS B VACCINES (1 of 3 - 3-dose series)] Future Scheduled 2022-03-30 SHINGLES VACCINES (1 Met [facility] Test 22:04:28 of 2) [code = SHINGLES VACCINES (1 of 2)] Future Scheduled 2022-03-30 65+ P[facility]UMOCOCCAL [facility] Test 22:04:28 VACCINE (1 - PCV) [code = 65+ PNEUMOCOCCAL VACCINE (1 - PCV)] Future Scheduled 2022-03-30 COVID-19 VACCINE (3 - [facility] Test 22:04:28 Booster for Pfizer series) [code = COVID-19 VACCINE (3 - Booster for Pfizer series)] Future Scheduled 2022-03-30 INFLUENZA VACCINE [facility] Test 22:04:28 [code = INFLUENZA VACCINE] Future Scheduled 2022-01-23 INFLUENZA VACCINE (#1) [facility] 00:00:00 [code = INFLUENZA Medical Ce nter VACCINE (#1)] Future Scheduled 2021-05-[address] [facility] Test 00:00:00 (12+) [code = Medical Center DEPRESSION SCREENING (12+)] Future Scheduled 2021-05-25 FALLS RISK SCREENING [facility] Test 00:00:00 [code = FALLS RISK Medical C enter SCREENING] Future Scheduled 1999-06-[address] [facility] Test 00:00:00 WELLNESS (YEAR 2 or Medical Center FIRST YEAR if no IPPE) [code = MEDICARE ANNUAL WELLNESS (YEAR 2 or FIRST YEAR if no IPPE)] Future Scheduled 1998 PNEUMOCOCCAL 65+ YRS [facility] Test 00:00:00 (1 - PCV) [code = Medical Ce nter PNEUMOCOCCAL 65+ YRS (1 - PCV)] Future Scheduled 1983 SHINGLES VACCINES ([address] [facility] Test 00:00:00 of 2) [code = SHINGLES Medic al Center VACCINES (1 of 2)] Future Scheduled 1952 DTAP/TDAP/TD VACCINES [facility] Test 00:00:00 (1 - Tdap) [code = Medical C enter DTAP/TDAP/TD VACCINES (1 - Tdap)] Future Scheduled [address] [facility] Test 00:00:00 Counseling and Medical Cente r Screening (12+) [code = Tobacco Cessation Counseling and Screening (12+)] Future Scheduled 1934-01-05 COVID-19 VACCINE (#1) [facility] Test 00:00:00 [code = COVID-[address] VACCINE (#1)] Encounters Start End Encounter Admission Attending Care Care Encounter Source Date/Time Date/Time Type Type Clinicians Facility Department ID 2020-05-26 Inpatient ER MICAELA, [facility] Gastro [id number] [facility] 12:59:00 ERIKA 2020-07-13 2020-07-13 Outpatient [facility] [id number] [place] 00:00:00 00:00:[address] 2020-06-22 2020-06-22 Outpatient [facility] [id number] [place] 00:00:00 00:00:[address] 2019-05-31 2019-06-02 Inpatient ANDREIA, [facility] [id number] [place] 00:00:00 00:00:[address] GINA [address] Results Test Description Test [...] NOT 1092) ACCURATE CRE ATININE CLEARANCE IN SD EDICTING GLOMERULAR FILT RATION RATE. ESTIMATED GFR IS NOT APPLICABLE FOR DIALYSIS PATIENTS. Addiction Treatment Counselor ID - PINKY [id number] 07:06:00 Test Item Value Reference Range Interpretation Comments MAGNESIUM (BEAKER) (test code = 1.9 mg/dL 1.6-2.6 627) Addiction Treatment Counselor ID - PINKY [id number] 07:06:00 Test Item Value Reference Range Interpretation Comments PHOSPHORUS (BEAKER) (test code = 3.0 mg/dL 2.3-4.7 604) Addiction Treatment Counselor ID - PINKY MHEPATIC FUNCTION [id number] 07:06:00 Test Item Value Reference Range Interpretation [...] (test code = 49 U/L 6-55 347) Addiction Treatment Counselor ID - PINKY MCBC (HEMOGRAM ONLY)2020-05-31 06:15:00 Test Item Value Reference [...] (BEAKER) (test code = 413) BASIC METABOLIC [id number] 06:50:00 Test Item Value Reference Range Interpretation [...] S NOT APPLICABLE FOR DIALYSIS PATIEN TS. Addiction Treatment Counselor ID - [id number] 06:50:00 Test Item Value Reference Range Interpretation Comments MAGNESIUM (BEAKER) (test code = 2.0 mg/dL 1.6-2.6 627) Addiction Treatment Counselor ID - [id number] 06:50:00 Test Item Value Reference Range Interpretation Comments PHOSPHORUS (BEAKER) (test code = 3.1 mg/dL 2.3-4.7 604) Addiction Treatment Counselor ID - ADMINHEPATIC FUNCTION [id number] 06:50:00 Test Item Value Reference Range Interpretation [...] (test code = 54 U/L 6-55 347) Addiction Treatment Counselor ID - ADMINCBC (HEMOGRAM ONLY)2020-05-30 05:31:00 Test [...] (BEAKER) (test code = 413) MR, ABDOMEN, [id number] 20:04:00Unlisted Reason for Exam - Click Yes and Enter Reason Below->No [facility] CH[facility]STIANSEN : 1935 Sex: MFINAL REPORT TECHNIQUE: MRI of the abdomen and MRCP WITHOUT intravenous contrast. 3-D volume reconstructions were obtained to evaluate the biliary ductal system. INDICATION: Cholelithiasis, biliary obstruction suspected. COMPARISON: Ultrasound on 08/12/2019. FINDINGS: ABSENCE OF INTRAVENOUS CONTRAST DECREASES SENSITIVITY FOR DETECTION OF FOCAL LESIONS AND VASCULAR PATHOLOGY. EXAM IS ALSOLIMITED BY MOTION ARTIFACT. LOWER THORAX: Unremarkable. LIVER: No hepatic signal abnormality. No focal hepatic lesions. BILIARY: Gallbladder is unremarkable. No biliary ductal dilatation or filling defect. Common bile duct measures 0.4 cm in diameter.SPLEEN: No splenomegaly.PANCREAS: Pancreas demonstra emilia normal T1 signal intensity. There is mild atrophy of the body and tail of the pancreas. There isfocal dilation of the main pancreatic duct in [...] T1 hyperintense focus in lower pole of theright kidney likely representing cyst with hemorrhagic/proteinaceous fluid. PERITONEUM/RETROPERITONEUM: No free fluid.LYMPH NODES: No lymphadenopathy.VESSELS: Atherosclerotic changes in the abdominal aorta. There is no evidence of aneurysmal dilation.. GI TRACT: No distention or wall thickening. BONESAND SOFT TISSUES: Degenerative changes in the spine.. IMPRESSION:ABSENCE OF INTRAVENOUS CONTRAST DECREASES SENSITIVITY FOR DETECTION OF FOCAL LESIONS AND VASCULAR PATHOLOGY. EXAM IS ALSO LIMITED BY DIANNE ON ARTIFACT. No biliary ductal dilation or choledocholithiasis. Atrophy of the pancreas with pancreatic ductal dilation and dilated sidebranches likely representing sequelae of prior pancreatitis. Bilateral renal cysts. Some of the lesions demonstrate T1 hyperintensity likely representing cyst with hem orrhagic/proteinaceous fluid. Signed: Thang San MDReport Verified Date/Time: 120:04:18 Reading Location: [facility] B1 C013Y CT Body Reading Room [id number] 06:13:00 Test Item Value Reference Range Interpretation Comments MAGNESIUM (BEAKER) 1.9 mg/dL 1.6-2.6 Specimen slightly (test code = 627) hemolyzed Addiction Treatment Counselor ID - KYLE [id number] 06:13:00 Test Item Value Reference Range Interpretation Comments PHOSPHORUS (BEAKER) 2.9 mg/dL 2.3-4.7 Specimen slightly (test code = 604) hemolyzed Addiction Treatment Counselor ID - KYLE WBASIC METABOLIC [id number] 06:13:00 Test Item Value Reference Range Interpretation [...] S NOT APPLICABLE FOR DIALYSIS PATIEN TS. Addiction Treatment Counselor ID - KYLE WHEPATIC FUNCTION [id number] 06:13:00 Test Item Value Reference Range Interpretation [...] Specimen slightly (test code = 347) hemolyzed Addiction Treatment Counselor ID José WRIGHT WCBC (HEMOGRAM ONLY)2020-05-29 05:07:00 Test Item Value [...] WBC 0-0 (BEAKER) (test code = 413) [id number] 20:18:00 Test Item Value Reference Range Interpretation Comments LIPASE (BEAKER) (test code = 749) 36 U/L 8-78 Addiction Treatment Counselor ID - BSHEPATOBILIARY IMAGING W/ [id number] 17:32:00Unlisted Reason for Exam - Click Yes and Enter Reason Below->NoReason for exam:->chronic cholecystitis vs [facility]edocholithiasis [facility] : 1935 Sex: MFINAL REPORT PROCEDURE: HEPATOBILIARY SCAN with Sincalide Infusion CPT CODE: 89113 INDICATION: Cholecystitis PROTOCOL: 4.9 mCi of Tc-99m mebrofenin was injected intravenously. Images of the upper abdomen were obtained for approximately 60 minutes after tracer injection. 2.0 micrograms (0.02 ugm/kg) of sincalide was then infused intravenously over approximately 60 minutes with continuous imaging during the [...] No evidence of cholecystitis. Signed: Rossana Irizarry Verified Date/Time: 05/28/2020 17:32:27 Reading Location: [address] Reading Room RAD, CHEST, 1 VIEW, NON [id number] 14:38:00Reason for exam:->for MRCP clearance, Pt. have a PacemakerShould this be performed at the bedside?->Yes [facility] : 1935 Sex: MFINALREPORT INDICATION: for MRCP clearance, Pt. have a Pacemaker COMPARISON: None TECHNIQUE: Single frontal view of the chest. FINDINGS: Lungs and pleura: Clear lungs. No effusion.Heartand mediastinum: Normal heart size. Unremarkable mediastinal contours.Osseous structures: No acute abnormality.Other: None. IMPRESSION: No acute intrathoracic abnormality. Signed: JR eVrduzco Robert MDReport Verified Date/Time: 05/28/2020 14:38:54 Reading Location: [facility] Radiology Reading Room [id number] 06:27:00 Test Item Value Reference Range Interpretation Comments MAGNESIUM (BEAKER) 1.9 mg/dL 1.6-2.6 Specimen moderately (test code = 627) hemolyzed Addiction Treatment Counselor ID - PIAYA [id number] 06:27:00 Test Item Value Reference Range Interpretation Comments PHOSPHORUS (BEAKER) 2.6 mg/dL 2.3-4.7 Specimen moderately (test code = 604) hemolyzed Addiction Treatment Counselor ID - PIAYA LBASIC METABOLIC [id number] 06:27:00 Test Item Value Reference Range Interpretation [...] S NOT APPLICABLE FOR DIALYSIS PATIEN TS. Addiction Treatment Counselor ID - PIAYA LHEPATIC FUNCTION [id number] 06:27:00 Test Item Value Reference Range Interpretation [...] Specimen moderately (test code = 347) hemolyzed Addiction Treatment Counselor ID - PIAYA LCBC (HEMOGRAM ONLY)2020-05-28 05:09:00 [...] code = 413) URINALYSIS W/ REFLEX URINE [id number] 17:16:00 Test Item Value Reference Range Interpretation [...] 1574) Rare SOURCE(BEAKER) (test code = 2795) Addiction Treatment Counselor ID - [auto]Addiction Treatment Counselor ID - techCOMPREHENSIVE METABOLIC [id number] 14:32:00 Test Item Value Reference Range Interpretation [...] S NOT APPLICABLE FOR DIALYSIS PATIEN TS. Addiction Treatment Counselor ID - JOHN CCBC W/PLT COUNT & AUTO [id number] 13:52:00 Test Item Value Reference Range Interpretation [...] PERCENT (BEAKER) (test code = 2801) SARS-COV2/RT-PCR ([facility])2020-05-27 11:57:00 Test Item Value Reference Range Interpretation Comments SARS-COV2/RT-PCR (test Negative Not Detected, Negative, code = 9793046) See external report for linked test SARS-COV-2 PERFORMING LAB [facility] KORI (test code = 1586833) Negative result for this test determines that SARS-CoV-2 RNA was not present in the specimen above the Limit of Detection (LOD). However, Negative results do not preclude SARS-CoV-2 infection and should not be used as the sole basis for treatment or patient management decisions. Negative results must be combined with clinical observations, patient history, and [...] justifying the authorization of the emergency use ofin vitro diagnostic tests for detection and/or diagnosis of COVID-19 is terminated under Section 564(b)(2) of the Act or the EUA is revoked under Section 564(g) of the Act.Fact Sheet for Healthcare Prov iders:https://www.[employer]sites/default/files/product/documents/Fact_Sheet_HC _Dzwypnrlx_Vocb_FFHG-AaS-2.pdfFact Sheet for Healthcare Patients:https://www.On[employer]ity/sites/default/files/product/docume nts/Lncw_Dpezu_Cafhdydy_Pugo_WDDZ-KtF-5.pdfPerforming Laboratory:[facility], [place] [address]V/S, ABDOMINAL, LIMITED 2020-05-27 11:53:00Abdomen limited area? Add comment if clarification is needed.->Right upper quadrantReason for exam:->Assess for cholecystitis or choledocholithiasis [facility] : 1935 Sex: MFINAL REPORT [...] either nonshadowing stones or sludge. The gallbladder wallthickening. No distention or pericholecystic fluid. Negative sonographic Paulino sign.The common bileduct was unable to be visualized PANCREAS: Not well visualized due to overlying bowel gas. PERITONEUM: No free fluid. RIGHT KIDNEY: Normal in size. No hydronephrosis. No sonographically evident solid mass lesion. IMPRESSION: 1.There is either sludge or nonshadowing stones in the gallbladder with a thickened gallbladder wall. This is nonspecific but could be due to acute cholecystitis in the appropriate clinical setting. This can be assessed on the already ordered MRCP. 2.The common bile duct was notwell visualized. Signed: Bentley Alfaro MDRort Verified Date/Time: 05/27/2020 11:53:24 Reading Location: [facility] B1 C013Y CT Body Reading Room TROPONIN [id number] 23:43:00 Test Item Value Reference Range Interpretation Comments TROPONIN I (BEAKER) (test code = 0.25 ng/mL 0.00-0.03 397) Troponin I (TnI) levels [...] failure, acidosis, acute neurological disease, and persistent tachyarrhythmia.Addiction Treatment Counselor ID - DBTROPONIN [id number] 17:25:00 Test Item Value Reference Range Interpretation [...] failure, acidosis, acute neurological disease, and persistent tachyarrhythmia.Addiction Treatment Counselor ID - DBCOMPREHENSIVE METABOLIC [id number] 14:52:00 Test Item Value Reference Range Interpretation [...] S NOT APPLICABLE FOR DIALYSIS PATIEN TS. Addiction Treatment Counselor ID - JOHN CSpecimen slightly ictericPROTHROMBIN [id number] 14:38:00 Test Item Value Reference Range Interpretation Comments PROTIME (BEAKER) (test code = 14.1 seconds 11.9-14.2 759) INR (BEAKER) (test code = 370) 1.12 <=5.90 Effective 10/20/2018: PT Reference Range ChangeNew: 11.9-14.2 Previous: 11.7- 14.7RECOMMENDED COUMADIN/WARFARIN INR THERAPY RANGESSTANDARD DOSE: 2.0-3.0 Includes: PROPHYLAXIS for venous thrombosis, systemic embolization; TREATMENT for venous thrombosis and/or pulmonary embolus.HIGH RISK: Target INR is 2.5-3.5 for patients wiht mechanical heart valves.CBC W/PLT COUNT & AUTO [id number] 14:31:00 Test Item Value Reference Range Interpretation [...] % 0-1 PERCENT (BEAKER) (test code = 1961)
--- NOTE | 2022-04-18 09:31 | RAD REPORT ---
EXAM DESCRIPTION: [facility]/18/2022 9:08 am CLINICAL HISTORY: Right leg pain and swelling. COMPARISON: None. FINDINGS: Right common femoral, superficial femoral, popliteal and right posterior tibial veins are compressible and demonstrate augmentation. Doppler demonstrates good flow. Grayscale, color and spectral analysis performed on all vessels IMPRESSION: No evidence of deep venous thrombosis involving the right lower extremity.
--- NOTE | 2022-04-18 09:44 | ER ---
Nurse's Notes [facility] Name: Leanna Judge Age: 86 yrs Sex: Male : 1935 Arrival Date: 04/18/2022 Time: 08:18 Bed 12 Private MD: Supa Graham C Diagnosis: Cellulitis of right lower limb Presentation: 04/18 08:52 Chief complaint: Patient states: "I went to see Dr. Shrestha for a possible infection ss on my leg, and he told me to start taking an antibiotic and that if it gets worse to come to the ER, but the pharmacy never filled the prescription." RLE redness and swelling noted. Pt reports that it began Thursday. Coronavirus screen: Client denies travel out of the [place] in the last 14 days. Ebola Screen: Patient denies exposure to infectious person. Patient denies travel to an Ebola-affected area in the 21 days before illness onset. Initial Sepsis Screen: Does the patient meet any 2 criteria? No. Patient's initial sepsis screen is negative. Does the patient have a suspected source of infection? Yes: Skin breakdown/wound. Risk Assessment: Do you want to hurt yourself or someone else? Patient reports no desire to harm self or others. Onset of symptoms was April 15, 2022. 08:52 Method Of Arrival: Wheelchair 08:52 Acuity: GRACIE 3 ss Historical: - Allergies: 08:48 No Known Allergies; ss - Home Meds: 08:48 valsartan 160 mg oral tab 1 tab once daily [Active]; hydrochlorothiazide 12.5 mg Oral ss tab 1 tab once daily [Active]; allopurinol 100 mg Oral tab 1 tab once daily [Active]; escitalopram oxalate 10 mg Oral tab 1 tab once daily [Active]; aspirin 81 mg Oral TbEC once daily [Active]; metoprolol succinate 25 mg oral Tb24 1 tab once daily [Active]; gabapentin 100 mg oral tab 2 tab three times a day [Active]; Assessment: 08:51 Reassessment: PT to US at this time VIA wheelchair from triage. ss Vital Signs: 08:48 BP 127 / 85; Pulse 59; Resp 17; Temp 97.8(O); Pulse Ox 100% on R/A; ss ED Course: 08:18 Patient arrived in ED. as 08:18 Supa Graham MD is Private Physician. as 08:22 Yaneli Ng [facility]C [facility] snw 08:22 Nik White MD is Attending Physician. snw 08:48 Arm band placed on right wrist. ss 08:53 Triage completed. ss 09:10 US Extremity Venous Unilateral Ltd In Process Unspecified. EDMS 09:43 Supa Graham MD is Referral Physician. snw 09:57 No provider procedures requiring assistance completed. Patient did not have IV access ss during this emergency room visit. Administered Medications: 09:54 Drug: Doxycycline 100 mg Route: PO; ss 09:57 Follow up: Response: Medication administered at discharge. ss Outcome: 09:43 Discharge ordered by . snw 09:57 Discharged to home via wheelchair, Assisted patient VIA wheelchair to room 401 to visit ss his 09:57 Condition: good 09:57 Discharge instructions given to patient, Instructed on discharge instructions, follow up and referral plans. medication usage, Demonstrated understanding of instructions, follow-up care, medications, Prescriptions given X 1. 09:58 Patient left the ED. ss Signatures: Dispatcher [employer] EDAZ Yaneli Ng FNP-C FNP-Marcelle Aguilar Shelby, RN RN ss
--- NOTE | 2022-04-18 09:44 | EDPHYS ---
Physician Documentation [facility] Name: Leanna Judge Age: 86 yrs Sex: Male : 1935 Arrival Date: 04/18/2022 Time: 08:18 Bed 12 Private MD: Supa Graham C ED Physician Nik White HPI: 04/18 08:56 This 86 yrs old Male presents to ER via Wheelchair with complaints of Wound Check, Leg snw Swelling. 08:56 Patient presents to ED for recheck of: cellulitis. The affected area is on the right snw calf and right baltazar. Previous treatment: pt saw Dr. Graham last week, Dr. Shrestha on Thursday. Abx were to be sent out but pt never rec'd them. Progress: The patient reports decreased swelling. It is unknown whether or not the patient has had similar symptoms in the past. as noted. Pt states his right lower leg yates and is more swollen than previously. Historical: - Allergies: 08:48 No Known Allergies; ss - Home Meds: 08:48 valsartan 160 mg oral tab 1 tab once daily [Active]; hydrochlorothiazide 12.5 mg Oral ss tab 1 tab once daily [Active]; allopurinol 100 mg Oral tab 1 tab once daily [Active]; escitalopram oxalate 10 mg Oral tab 1 tab once daily [Active]; aspirin 81 mg Oral TbEC once daily [Active]; metoprolol succinate 25 mg oral Tb24 1 tab once daily [Active]; gabapentin 100 mg oral tab 2 tab three times a day [Active]; ROS: 08:55 Constitutional: Negative for fever, chills, and weight loss, Eyes: Negative for injury, snw pain, redness, and discharge, ENT: Negative for injury, pain, and discharge, Neck: Negative for injury, pain, and swelling, Cardiovascular: Negative for chest pain, palpitations, and edema, Respiratory: Negative for shortness of breath, cough, wheezing, and pleuritic chest pain, Abdomen/GI: Negative for abdominal pain, nausea, vomiting, diarrhea, and constipation, Back: Negative for injury and pain, : Negative for injury, bleeding, discharge, and swelling, Neuro: Negative for headache, weakness, numbness, tingling, and seizure. 08:55 MS/extremity: Positive for erythema, swelling, tenderness, of the right leg. 08:55 Skin: Positive for cellulitis, of the right baltazar and right calf. Exam: 08:52 Constitutional: This is a well developed, well nourished patient who is awake, alert, snw and in no acute distress. Head/Face: Normocephalic, atraumatic. Eyes: Pupils equal round and reactive to light, extra-ocular motions intact. Lids and lashes normal. Conjunctiva and sclera are non-icteric and not injected. Cornea within normal limits. Periorbital areas with no swelling, redness, or edema. ENT: Nares patent. No nasal discharge, no septal abnormalities noted. Tympanic membranes are normal and external auditory canals are clear. Oropharynx with no redness, swelling, or masses, exudates, or evidence of obstruction, uvula midline. Mucous membranes moist. Neck: Trachea midline, no thyromegaly or masses palpated, and no cervical lymphadenopathy. Supple, full range of motion without nuchal rigidity, or vertebral point tenderness. No Meningismus. Chest/axilla: Normal chest wall appearance and motion. Nontender with no deformity. No lesions are appreciated. Cardiovascular: Regular rate and rhythm with a normal S1 and S2. No gallops, murmurs, or rubs. Normal PMI, no JVD. No pulse deficits. Respiratory: Lungs have equal breath sounds bilaterally, clear to auscultation and percussion. No rales, rhonchi or wheezes noted. No increased work of breathing, no retractions or nasal flaring. Abdomen/GI: Soft, non-tender, with normal bowel sounds. No distension or tympany. No guarding or rebound. No evidence of tenderness throughout. Back: No spinal tenderness. No costovertebral tenderness. Full range of motion. Neuro: Awake and alert, GCS 15, oriented to person, place, time, and situation. Cranial nerves II-XII grossly intact. Motor strength 5/5 in all extremities. Sensory grossly intact. Cerebellar exam normal. Normal gait. 08:52 Musculoskeletal/extremity: Pulses: noted to be 2+ in the right posterior tibial artery, Sensation intact. 08:52 Skin: Appearance: normal except for affected area, cellulitis, that is mild, well demarcated, on the right calf and right baltazar. Vital Signs: 08:48 BP 127 / 85; Pulse 59; Resp 17; Temp 97.8(O); Pulse Ox 100% on R/A; ss MDM: 08:58 Patient medically screened. snw 09:44 Data reviewed: vital signs, nurses notes. Data interpreted: Pulse oximetry: on room air snw is 100 %. Interpretation: normal. Counseling: I had a detailed discussion with the patient and/or guardian regarding: the historical points, exam findings, and any diagnostic results supporting the discharge/admit diagnosis, radiology results, the need for outpatient follow up, to return to the emergency department if symptoms worsen or persist or if there are any questions or concerns that arise at home. Special discussion: Based on the history and exam findings, there is no indication for further emergent testing or inpatient evaluation. I discussed with the patient/guardian the need to see the primary care provider for further evaluation of the symptoms. 04/18 08:51 Order name: US Extremity Venous Unilateral Ltd; Complete Time: 09:43 snw Administered Medications: 09:54 Drug: Doxycycline 100 mg Route: PO; 09:57 Follow up: Response: Medication administered at discharge. Disposition Summary: 04/18/22 09:43 Discharge Ordered Location: Home snw Condition: Stable snw Diagnosis - Cellulitis of right lower limb snw Followup: snw - With: Emergency Department - When: As needed - Reason: Worsening of condition Followup: snw - With: Supa Graham MD - When: 1 week - Reason: Recheck today's complaints, Continuance of care, Re-evaluation by your physician Discharge Instructions: - Discharge Summary Sheet snw - Cellulitis, Adult snw - Heat Therapy snw Forms: - Medication Reconciliation Form snw - Thank You Letter snw - Antibiotic Education snw - Prescription Opioid Use snw Prescriptions: - Doxycycline Hyclate 100 mg Oral Tablet - take 1 tablet by ORAL route every 12 hours; 20 tablet; Refills: 0, Product snw Selection Permitted Signatures: Dispatcher [employer] Yaneli Burton FNP-C FNP-Kitty Ray RN RN
[2022-04-18] MEDS ORDERED: DOXYCYCLINE 100 MG CAP PO ONE (09:53)
[2022-04-18 10:07] VITALS: BP 127/85; TEMP 97.8; O2SAT 100
== END 2022-04-18 09:58 | disposition home or self-care (01) ==
LOC: ER 08:13
DX: L03.115 Cellulitis of right lower limb (principal); Z79.82 Long term (current) use of aspirin
CPT/HCPCS: 93971; 99283

== ENCOUNTER 2022-12-01 09:42 | Emergency (ER) | payer OTHER, BC ==
--- OUTSIDE RECORDS SUMMARY | 2022-12-01 09:48 | XMS REPORT | Continuity of Care Document ---
:1935 Author Organization [facility] t Address [address] [place] [address] Care Team Providers Name Role Phone Asked, No Pcp Primary Care Physician Unavailable ERIKA HINOJOSA Attending Clinician Unavailable GINA BOSWELL Attending Clinician Unavailable ERIKA HINOJOSA Admitting Clinician Unavailable HORACIO LUGO Admitting Clinician Unavailable GINA BOSWELL Admitting Clinician Unavailable Payers Payer Name Policy Type Policy Number Effective Date Expiration Date S ource MEDICARE A B [id number] 1998 00:00:00 BCBS FED [id number] 2019 00:00:00 Problems Condition Condition Condition Status Onset Resolution Last Treating Co mments Source Name Details Category Date Date Treatment Clinician Date Acute Acute Disease Active [facility] St cholecysti cholecysti 1 Nany kes tis due to tis due to 00:00: Me dical biliary biliary 00 Center calculus calculus Cardiac Cardiac Disease Active [facility] arrhythmia arrhythmia 05-31 st 00:00: Hospita 00 l Allergies, Adverse Reactions, Alerts Allergy Allergy Status Severity Reaction(s) Onset Inactive Treating Comm ents Source Name Type Date Date Clinician NO KNOWN Allergy Active [facility] Family History Family Member Diagnosis Comments Start Date Stop Date Source Natural father Stroke [facility] Natural mother Cancer [facility] Natural mother Heart disease [facility] Natural brother Cancer [facility] Natural sister Brain cancer [facility] Social History Social Habit Start Date Stop Date Quantity Comments Source History of tobacco Current smoker [facility] History SDOH [facility] History SDOH [facility] Std Drinks Hospit al Alcohol intake 2020-05-31 2020-05-31 Ex-drinker [facility]finding[facility] History SDOH 2019-05-31 2019-05-31 1 [facility] Alcohol Frequency 00:00:00 00:00:00 Hospita l Sex Assigned At [address] [facility] 00:00:00 [facility]00 [facility] Smoking Status Start Date Stop Date Source Former smoker 2020-05-26 00:00:00 2020-05-26 00:00:[address] [facility] Never smoked tobacco [facility] Medications Ordered Filled Start Stop Current Ordering Indication Dosage Frequency Signature Comments Components Source Medication Medication Date Date Medication? Clinician (SIG) Name Name metoprolol Yes 25mg QD Take [address] succinate 1-07 [facility] (TOPROL-XL) 13:43: daily. [facility] kilo 25 MG 24 hr 19 Center tablet clopidogreL Yes 75mg QD Take [address] (PLAVIX) 75 1-07 by [facility] mg tablet 13:43: daily. [facility]ica l 19 Center valsartan Yes 320mg QD Take [address] (DIOVAN) 1-07 mg by [facility] 320 MG 13:43: mouth Medical tablet 19 daily. [facility] escitalopra Yes 10mg QD Take [address] [facility] oxalate 1-07 [facility] (LEXAPRO) 13:43: daily. Medica l 10 MG 19 Center tablet gabapentin Yes 100mg Q.[id number] Take [address] (NEURONTIN) 1-07 [id number] mg by L [facility] 100 MG 13:43: 3D mouth 3 Medical capsule 19 (three) Center times daily. allopurinoL Yes 100mg QD Take [address] (ZYLOPRIM) 1-07 mg by [facility] 100 MG 13:43: mouth Medical tablet 19 daily. [facility] aspirin 81 Yes 81mg QD Take 81 [...] Take [address] (PriLOSEC) 1-07 [facility] 20 MG 13:43: daily as Medical capsule 19 needed. [facility] metoprolol Yes 25mg QD Take [address] succinate 1-07 [facility] (TOPROL-XL) 13:43: daily. [facility] kilo 25 MG 24 hr 19 Center tablet clopidogreL Yes 75mg QD Take [address] (PLAVIX) 75 1-07 by mouth [facility] mg tablet 13:43: daily. Medica l 19 [facility] valsartan Yes 320mg QD Take [address] (DIOVAN) 1-07 mg by [facility] 320 MG 13:43: mouth Medical tablet 19 daily. [facility] escitalopra Yes 10mg QD Take [address] [facility] oxalate 1-07 [facility] (LEXAPRO) 13:43: daily. Medica l 10 MG 19 Center tablet gabapentin Yes 100mg Q.[id number] Take [address] (NEURONTIN) 1-07 [id number] mg by L [facility] 100 MG 13:43: 3D mouth 3 Medical capsule 19 (three) Center times daily. allopurinoL Yes 100mg QD Take [address] (ZYLOPRIM) 1-07 mg by [facility] 100 MG 13:43: mouth Medical tablet 19 daily. [facility] aspirin 81 0 Yes 81mg QD Take 81 mg C [...] unrelieved 5min after 1st dose . omeprazole 0 Yes 20mg Take [address] (PriLOSEC) -07 [facility] 20 MG 13:43: daily as Medical capsule 19 needed. Center atorvastati 0 Yes 40mg QD Take 0.[address] [facility] (LIPITOR) 1-07 tablets [facility] 80 MG 00:00: (40 mg Medical tablet 00 total) by Center mouth daily. atorvastati 0 Yes 40mg QD Take 0.[address] [facility] (LIPITOR) 1-07 tablets [facility] 80 MG 00:00: (40 mg Medical tablet 00 total) by Center mouth daily. simvastatin 2019-0 Yes 40mg QD Take 40 mg [facility] (ZOCOR) 40 -[address] [facility] tablet 12:41: nightly. [facility] l gabapentin 2020-0 Yes 100mg Q.[id number] Take 100 [facility] (NEURONTIN) 1-09 [id number] mg by s t 100 mg 12:41: [...] Date Status Commen ts Source Name Name [facility] COVID-19 MRNA 2020-07-13 Completed Meth odist VACCINATION 00:00:00 [facility] PFIZER COVID-19 MRNA 2020-06-22 Completed Meth odist VACCINATION 00:00:00 Hospital Vital Signs Vital Name Observation Time Observation Value Comments Source HEIGHT 2020-05-26 13:26:00 179.8 cm WEIGHT 2020-05-26 13:26:00 98.249 kg HEIGHT 2020-05-26 13:26:00 179.8 cm WEIGHT 2020-05-26 13:26:00 98.249 kg Procedures This patient has no known procedures. Plan of Care Planned Activity Planned Date Details Comments Source Future Scheduled 2023-01-23 Influenza Vaccine (#1) [facility] 00:00:00 [code = Influenza Medical Ce nter Vaccine (#1)] Future Scheduled 2022-05-[address] [facility] 00:00:00 (12+) [code = Medical Center DEPRESSION SCREENING (12+)] Future Scheduled 2022-05-25 FALLS RISK SCREENING [facility] Test 00:00:00 [code = FALLS RISK Medical C enter SCREENING] Future Scheduled 2022-03-30 HEPATITIS B VACCINES [facility] Test 22:04:28 (1 of 3 - 3-dose series) [code = HEPATITIS B VACCINES (1 of 3 - 3-dose series)] Future Scheduled 2022-03-30 SHINGLES VACCINES (1 [facility] Test 22:04:28 of 2) [code = SHINGLES VACCINES (1 of 2)] Future Scheduled 2022-03-30 65+ [facility]CCAL [facility] 22:04:28 VACCINE (1 - PCV) [code = 65+ PNEUMOCOCCAL VACCINE (1 - PCV)] Future Scheduled 2022-03-30 COVID-19 VACCINE (3 - Me [facility] Test 22:04:28 Booster for Pfizer series) [code = COVID-19 VACCINE (3 - Booster for Pfizer series)] Future Scheduled 2022-03-30 INFLUENZA VACCINE [facility] Test 22:04:28 [code = INFLUENZA VACCINE] [...] FIRST YEAR if no IPPE)] Future Scheduled 1999-06-[address] [facility] Test 00:00:00 WELLNESS (YEAR 2 or Medical Center FIRST YEAR if no IPPE) [code = MEDICARE ANNUAL WELLNESS (YEAR 2 or FIRST YEAR if no IPPE)] Future Scheduled 1998 PNEUMOCOCCAL 65+ YRS [facility] Test 00:00:00 (1 - PCV) [code = Medical Ce nter PNEUMOCOCCAL 65+ YRS (1 - PCV)] Future Scheduled 1998 PNEUMOCOCCAL 65+ YRS [facility] Test 00:00:00 (1 - PCV) [code = Medical Ce nter PNEUMOCOCCAL 65+ YRS (1 - PCV)] Future Scheduled 1983 SHINGLES VACCINES ([address] [facility] Test 00:00:00 of 2) [code = SHINGLES Medic al Center VACCINES (1 of 2)] Future Scheduled 1983 SHINGLES VACCINES ([address] [facility] Test 00:00:00 of 2) [code = SHINGLES Medic al Center VACCINES (1 of 2)] Future Scheduled 1952 DTAP/TDAP/TD VACCINES [facility] Test 00:00:00 (1 - Tdap) [code = Medical C enter DTAP/TDAP/TD VACCINES (1 - Tdap)] Future Scheduled 1952 DTAP/TDAP/TD VACCINES [facility] 00:00:00 (1 - Tdap) [code = Medical C enter DTAP/TDAP/TD VACCINES (1 - Tdap)] Future Scheduled [address] [facility] Test 00:00:00 Counseling and Medical Cente r Screening (12+) [code = Tobacco Cessation Counseling and Screening (12+)] Future Scheduled [address] [facility] Test 00:00:00 Counseling and Medical Cente r Screening (12+) [code = Tobacco Cessation Counseling and Screening (12+)] Future Scheduled 1936-01[birth year]05 COVID-19 VACCINE (#1) [facility] 00:00:00 [code = COVID-[address] VACCINE (#1)] Future Scheduled 1936-01-05 COVID-19 VACCINE (#1) [facility] 00:00:00 [code = COVID-[address] VACCINE (#1)] Encounters Start End Encounter Admission Attending Care Care Encounter Source Date/Time Date/Time Type Type Clinicians Facility Department ID 2020-05-26 Inpatient ER IGNACIO HINOJOSA [facility] [id number] [facility] 12:59:00 ERIKA 2020-07-13 2020-07-13 Outpatient [facility] [id number] [place] 00:00:00 00:00:[address] 2020-06-22 2020-06-22 Outpatient [facility] [id number] [place] 00:00:00 00:00:[address] 2019-05-31 2019-06-02 Inpatient ANDREIA [facility] [id number] [place] 00:00:00 00:00:[address] GINA [address] [...] NOT 1092) ACCURATE CRE ATININE CLEARANCE IN CT EDICTING GLOMERULAR FILT RATION RATE. ESTIMATED GFR IS NOT APPLICABLE FOR DIALYSIS PATIENTS. [employer] ID - PINKY [id number] 07:06:00 Test Item Value Reference Range Interpretation Comments MAGNESIUM (BEAKER) (test code = 1.9 mg/dL 1.6-2.6 627) [employer] ID - PINKY [id number] 07:06:00 Test Item Value Reference Range Interpretation Comments PHOSPHORUS (BEAKER) (test code = 3.0 mg/dL 2.3-4.7 604) [employer] ID - PINKY EPATIC FUNCTION [id number] 07:06:00 Test Item Value Reference Range Interpretation [...] (test code = 49 U/L 6-55 347) [employer] ID - PINKY MCBC (HEMOGRAM ONLY)2020-05-31 06:15:00 [...] (BEAKER) (test code = 413) BASIC METABOLIC [id number] 06:50:00 Test Item Value Reference Range Interpretation [...] S NOT APPLICABLE FOR DIALYSIS PATIEN TS. [employer] ID - [id number] 06:50:00 Test Item Value Reference Range Interpretation Comments MAGNESIUM (BEAKER) (test code = 2.0 mg/dL 1.6-2.6 627) [employer] ID - [id number] 06:50:00 Test Item Value Reference Range Interpretation Comments PHOSPHORUS (BEAKER) (test code = 3.1 mg/dL 2.3-4.7 604) [employer] ID - ADMINHEPATIC FUNCTION [id number] 06:50:00 Test Item Value Reference Range Interpretation [...] (test code = 54 U/L 6-55 347) [employer] ID - ADMINCBC (HEMOGRAM ONLY)2020-05-30 05:31:00 Test [...] (BEAKER) (test code = 413) MR, ABDOMEN, [id number] 20:04:00Unlisted Reason for Exam - Click Yes and Enter Reason Below->No [facility]ST[facility] : 1935 Sex: [...] [place] Verified Date/Time: 120:04:18 Reading Location: [facility] C013Y CT Body Reading Room [id number] 06:13:00 Test Item Value Reference Range Interpretation Comments MAGNESIUM (BEAKER) 1.9 mg/dL 1.6-2.6 Specimen slightly (test code = 627) hemolyzed [employer] ID - KYLE [id number] 06:13:00 Test Item Value Reference Range Interpretation Comments PHOSPHORUS (BEAKER) 2.9 mg/dL 2.3-4.7 Specimen slightly (test code = 604) hemolyzed [employer] ID - KYLE WBASIC METABOLIC [id number] 06:13:00 Test Item Value Reference Range Interpretation [...] S NOT APPLICABLE FOR DIALYSIS PATIEN TS. [employer] ID - KYLE WHEPATIC FUNCTION [id number] 06:13:00 Test Item Value Reference Range Interpretation [...] Specimen slightly (test code = 347) hemolyzed [employer] ID - KYLE WCBC (HEMOGRAM ONLY)2020-05-29 05:07:00 [...] WBC 0-0 (BEAKER) (test code = 413) [id number] 20:18:00 Test Item Value Reference Range Interpretation Comments LIPASE (BEAKER) (test code = 749) 36 U/L 8-78 [employer] ID - BSHEPATOBILIARY IMAGING W/ [id number] 17:32:00Unlisted Reason for Exam - Click Yes and Enter Reason Below->NoReason for exam:->chronic cholecystitis vs choledocholithiasis [facility] : 1935 Sex: MFINAL REPORT PROCEDURE: HEPATOBILIARY SCAN with Sincalide Infusion CPT CODE: 30207 INDICATION: Cholecystitis PROTOCOL: 4.9 mCi of Tc-99m mebrofenin was injected intravenously. Images of the upper abdomen were obtained for approximately 60 minutes after tracer injection. 2.0 micrograms (0.02 ugm/kg) of sincalide was then infused intravenously over approximately 60 minutes with continuousimaging during the infusion. FINDINGS: Initial tracer uptake [...] stimulation. No evidence of cholecystitis. Signed: Rossana Hoffmann MDReport Verified Date/Time: 05/28/2020 17:32:27 Reading Location: [address] Reading Room RAD, CHEST, 1 VIEW, NON [id number] 14:38:00Reason for exam:->for MRCP clearance, Pt. have a PacemakerShould this be performed at the bedside?->Yes [facility] KELSIE CHRISTIANSEN : 1935 Sex: MFINAL REPORT INDICATION: for MRCP clearance, Pt. have a Pacemaker COMPARISON: None TECHNIQUE: Single frontal view of the chest. FINDINGS: Lungs and pleura: Clear lungs. No effusion.Heart and mediastinum: Normal heart size. Unremarkable mediastinal contours.Osseous structures: No acute abn ormality.Other: None. IMPRESSION: No acute intrathoracic abnormality. Signed: JR Verduzco Robert MDReport Verified Date/Time: 05/28/2020 14:38:54 Reading Location: [facility] Radiology ReadingRoom [id number] 06:27:00 Test Item Value Reference Range Interpretation Comments MAGNESIUM (BEAKER) 1.9 mg/dL 1.6-2.6 Specimen moderately (test code = 627) hemolyzed [employer] ID - PIAYA [id number] 06:27:00 Test Item Value Reference Range Interpretation Comments PHOSPHORUS (BEAKER) 2.6 mg/dL 2.3-4.7 Specimen moderately (test code = 604) hemolyzed [employer] ID - PIAYA LBASIC METABOLIC [id number] 06:27:00 Test Item Value Reference Range Interpretation [...] S NOT APPLICABLE FOR DIALYSIS PATIEN TS. [employer] ID - PIAYA LHEPATIC FUNCTION [id number] 06:27:00 Test Item Value Reference Range Interpretation [...] Specimen moderately (test code = 347) hemolyzed [employer] ID - PIAYA LCBC (HEMOGRAM ONLY)2020-05-28 05:09:00 [...] code = 413) URINALYSIS W/ REFLEX URINE [id number] 17:16:00 Test Item Value Reference Range Interpretation [...] 1574) Rare SOURCE(BEAKER) (test code = 2795) [employer] ID - [auto][employer] ID - techCOMPREHENSIVE METABOLIC [id number] 14:32:00 Test Item Value Reference Range Interpretation [...] S NOT APPLICABLE FOR DIALYSIS PATIEN TS. [employer] ID - JOHN CCBC W/PLT COUNT & AUTO [id number] 13:52:00 Test Item Value Reference Range Interpretation [...] PERCENT (BEAKER) (test code = 2801) SARS-COV2/RT-PCR ([facility])2020-05-27 11:57:00 Test Item Value Reference Range Interpretation Comments SARS-COV2/RT-PCR (test Negative Not Detected, Negative, code = 0748049) See external report for linked test SARS-COV-2 PERFORMING LAB [facility] KORI (test code = 5287398) Negative result for this test determines that [...] of the Act.Fact Sheet for Healthcare Prov iders:https://www.[employer].com/sites/default/files/product/documents/Fact_Sheet_HC _Wjivzjmzf_Wttg_APCE-ByR-1.pdfFact Sheet for Healthcare Patients:https://www.[employer].com/sites/default/files/product/docume nts/Ofgo_Hfyqs_Uzrdpwsw_Ismv_BJWG-VpZ-3.pdfPerforming Laboratory:[place] [address], [place] [address]N/S, ABDOMINAL, LIMITED 2020-05-27 11:53:00Abdomen limited area? Add comment if clarification is needed.->Right upper quadrantReason for exam:->Assess for cholecystitis or choledocholithiasis [facility] CENTERName: KELSIE CHRISTIANSEN : 1935 Sex: MFINAL REPORT TECHNIQUE: Grayscale ultrasound of the right abdomen. INDICATION: Assess for cholecystitis or choledocholithiasis. COMPARISON: None. FINDINGS: MIDLINE VASCULATURE: The visualized inferior vena cava is unremarkable. The aorta was not well visualized due to overlying bowel gasLIVER: Smooth liver contour. No focal lesions. The main portal vein is patent and measures 0.8 cm indiameter. BILIARY:Gallbladder: There are either nonshadowing stones or [...] was not well visualized. Signed: Bentley Alfaro Verified Date/Time: 05/27/2020 11:53:24 Reading Location: [address] Body Reading Room ONIN [id number] 23:43:00 Test Item Value Reference Range Interpretation [...] failure, acidosis, acute neurological disease, and persistent tachyarrhythmia.[employer] ID - DBTROPONIN [id number] 17:25:00 Test Item Value Reference Range Interpretation [...] failure, acidosis, acute neurological disease, and persistent tachyarrhythmia.[employer] ID - DBCOMPREHENSIVE METABOLIC [id number] 14:52:00 Test Item Value Reference Range Interpretation [...] S NOT APPLICABLE FOR DIALYSIS PATIEN TS. [employer] ID - JOHN CSpecimen slightly ictericPROTHROMBIN TIME/[id number] 14:38:00 Test Item Value Reference Range Interpretation [...] mechanical heart valves.CBC W/PLT COUNT & AUTO [id number] 14:31:00 Test Item Value Reference Range Interpretation [...] % 0-1 PERCENT (BEAKER) (test code = 9481)
[2022-12-01] MEDS ORDERED: NA CHLORIDE 0.9% 1,000 ML ONE (10:39)
--- NOTE | 2022-12-01 11:28 | RAD REPORT ---
EXAM DESCRIPTION: CT - Stone Protocol - 12/01/2022 10:29 am CLINICAL HISTORY: PAIN COMPARISON: CTSTONE PROTOCOL dated 01/09/2012; Abdomen Exam Complete dated 08/01/2022 TECHNIQUE: Thin cut axial CT imaging of the abdomen and pelvis was performed without IV contrast. Mu ltiplanar reformats were generated and reviewed. All CT scans are performed using dose optimization technique as appropriate and may include automated exposure control or mA/KV adjustment according to patient size. FINDINGS: No suspicious findings in the lung bases. The liver, spleen, and adrenal glands show no suspicious findings. Gallbladder is moderately distende d with mildly hyperdense layering material near the fundus. Common bile duct is prominent, measuring 1.4 centimeter in caliber. Ill-defined a elongated hypoattenuating changes along the mid to distal lizandro dy of the pancreas, without significant inflammatory changes, findings which may relate to dilated to rtuous distal main pancreatic duct, or a developing cystic lesion. No suspicious renal contour abnormality, within limits of noncontrast technique. Stable exophytic hyp oattenuating renal lesions, the largest at the left lower pole, measuring 3.5 centimeter. No evidence of radiopaque calculi or hydroureteronephrosis. No dilated bowel loops or bowel wall thickening. No free air, free fluid or inflammatory stranding. D iastasis recti. No hernia, mass or bulky lymphadenopathy. The urinary bladder is without significant finding. Prostatomegaly. No suspicious bony findings. IMPRESSION: Ill-defined and elongated hypoattenuation changes along the mid to distal body of the pa ncreas, cannot exclude underlying pancreatic malignancy. Please correlate clinically, with pancreatic lab abnormalities, and consider additional evaluation by pancreatic protocol CT or MRI. Moderately distended gallbladder with layering small stones, and prominence of the common bile duct. Stable renal cysts. Prostatomegaly. No other urinary tract abnormality to explain the patient's sympt oms. The findings were communicated to Marco Waite on 12/01/2022 at 11:24 hours.
[2022-12-01 11:35] LABS: Absolute Lymphocytes (CBC) 1.2 K/uL (0.7-4.9); Lymphocytes % 21.7 % (15.3-44.8); MCV 93.1 fL (80-100); RBC Red Blood Cell Count 3.86 M/uL (4.33-5.43)
[2022-12-01 11:41] LABS: Protime INR 1.07
[2022-12-01 11:48] LABS: Albumin 2.8 g/dL (3.4-5.0); Bilirubin Direct 6.5 mg/dL (0-0.2); Bilirubin Indirect, Calculated 1.5 mg/dL (0.2-0.8); Magnesium 1.9 mg/dL (1.6-2.4); Potassium 3.1 mEq/L (3.5-5.1); Protein, Total 6.8 g/dL (6.4-8.2); Troponin High Sensitivity 10.8 pg/mL (<58.9)
[2022-12-01 12:06] LABS: Specific Gravity 1.009 (1.005-1.030); Urine Bacteria None Seen /HPF (<20); Urine Bilirubin 1+ (Negative); Urine Blood Negative (Negative); Urine Clarity Turbid (Clear); Urine Color Dark-Yellow (Yellow); Urine Glucose NEGATIVE (Negative); Urine Protein TRACE (Negative); Urine RBC <5 /HPF (None Seen); Urine Urobilinogen Normal (Normal); Urine pH 5.5 (5.0-7.0)
[2022-12-01] MEDS ORDERED: CEFTRIAXONE 1000 MG/VIAL ONE (12:12)
[2022-12-01] MEDS ORDERED: FAMOTIDINE 20 MG/2 ML VIAL IV ONE (12:12)
[2022-12-01] MEDS ORDERED: NA CHLORIDE 0.9% 50 ML ONE (12:12)
--- NOTE | 2022-12-01 12:14 | ER ---
Nurse's Notes [facility] Name: Leanna Judge Age: 87 yrs Sex: Male : 1935 Arrival Date: 12/01/2022 Time: 09:42 Bed 18 Private MD: Supa Graham C Diagnosis: Disease of biliary tract, unspecified;Disorders of gallbladder, biliary tract and pancreas in diseases classified elsewhere-PANCREATIC MASS;Abnormal findings on diagnostic imaging of liver and biliary tract;Presence of cardiac pacemaker Presentation: 12/01 10:02 Chief complaint: Patient states: HEMATURIA AFTER RIDING IN P/U TRUCK BED AND HITTING bp POT HOLE. Coronavirus screen: At this time, the client does not indicate any symptoms associated with coronavirus-19. Ebola Screen: No symptoms or risks identified at this time. Initial Sepsis Screen: Does the patient meet any 2 criteria? No. Patient's initial sepsis screen is negative. Does the patient have a suspected source of infection? No. Patient's initial sepsis screen is negative. Risk Assessment: Do you want to hurt yourself or someone else? Patient reports no desire to harm self or others. Onset of symptoms is unknown. 10:02 Method Of Arrival: Wheelchair bp 10:02 Acuity: GRACIE 3 bp Triage Assessment: 10:03 General: Appears in no apparent distress. Behavior is calm, cooperative, appropriate bp for age. Pain: Denies pain. EENT: No deficits noted. Neuro: No deficits noted. Cardiovascular: No deficits noted. Respiratory: No deficits noted. GI: No signs and/or symptoms were reported involving the gastrointestinal system. : No signs and/or symptoms were reported regarding the genitourinary system. Derm: No deficits noted. Musculoskeletal: No deficits noted. Historical: - Allergies: 10:03 No Known Allergies; bp - Home Meds: 10:03 gabapentin 100 mg Oral tab 2 tab three times a day [Active]; allopurinol 100 mg Oral bp tab 1 tab once daily [Active]; metoprolol succinate 25 mg Oral Tb24 1 tab once daily [Active]; escitalopram oxalate 10 mg Oral tab 1 tab once daily [Active]; valsartan 160 mg Oral tab 1 tab once daily [Active]; - PMHx: 10:03 Gout; Myocardial infarction; Hyperlipidemia; bp - Immunization history:: Adult Immunizations up to date. - Social history:: Smoking status: Patient denies any tobacco usage or history of. - Family history:: not pertinent. Screenin:30 [facility] ED Fall Risk Assessment (Adult) Score/Fall Risk Level 0 - 2 = Low Risk. Abuse eh3 screen: Denies threats or abuse. Denies injuries from another. Nutritional screening: No deficits noted. Tuberculosis screening: No symptoms or risk factors identified. Assessment: 10:30 General: Appears in no apparent distress. comfortable, Behavior is calm, cooperative, eh3 appropriate for age. Pain: Denies pain. Neuro: Level of Consciousness is awake, alert, obeys commands, Oriented to person, place, time, situation. Cardiovascular: Capillary refill < 3 seconds Patient's skin is warm and dry. Respiratory: Airway is patent Respiratory effort is even, unlabored, Respiratory pattern is regular, symmetrical. GI: Abdomen is round non-distended. : Reports urinary frequency. Derm: Skin is pink, warm \T\ dry. Musculoskeletal: Circulation, motion, and sensation intact. 11:30 Reassessment: Patient appears in no apparent distress at this time. Patient and/or 3 family updated on plan of care and expected duration. Pain level reassessed. Patient is alert, oriented x 3, equal unlabored respirations, skin warm/dry/pink. 12:30 Reassessment: Patient appears in no apparent distress at this time. Patient and/or eh3 family updated on plan of care and expected duration. Pain level reassessed. Patient is alert, oriented x 3, equal unlabored respirations, skin warm/dry/pink. 13:30 Reassessment: Patient appears in no apparent distress at this time. Patient and/or eh3 family updated on plan of care and expected duration. Pain level reassessed. Patient is alert, oriented x 3, equal unlabored respirations, skin warm/dry/pink. 14:17 Reassessment: Nurse to nurse report received by ASIF Solares at [facility]. [facility] 14:30 Reassessment: Patient appears in no apparent distress at this time. Patient and/or eh3 family updated on plan of care and expected duration. Pain level reassessed. Patient is alert, oriented x 3, equal unlabored respirations, skin warm/dry/pink. Vital Signs: 10:02 BP 113 / 57; Pulse 60; Resp 16; Temp 97.8; Pulse Ox 95% ; bp 10:30 BP 124 / 69; Pulse 59; Resp 12; Pulse Ox 96% on R/A; eh3 11:30 BP 134 / 54; Pulse 60; Resp 12; Pulse Ox 96% on R/A; eh3 12:30 BP 129 / 68; Pulse 60; Resp 17; Pulse Ox 95% on R/A; eh3 13:30 BP 130 / 79; Pulse 63; Resp 14; Pulse Ox 100% on R/A; eh3 14:30 BP 123 / 58; Pulse 72; Resp 19; Pulse Ox 99% on R/A; eh3 ED Course: 09:46 Patient arrived in ED. mr 09:46 Supa Graham MD is Private Physician. mr 09:47 Ashwini Sanchez [facility]C [facility]. sb4 09:47 Marco Waite MD is Attending Physician. sb4 10:03 Triage completed. bp 10:07 Arm band placed on. bp 10:14 Nik White MD is Attending Physician. curt 10:21 Renee Reid, ASIF is Primary Nurse. eh3 10:30 Patient has correct armband on for positive identification. Bed in low position. Call eh3 light in reach. Side rails up X2. Provided Education on: N/A. Client placed on continuous cardiac and pulse oximetry monitoring. NIBP monitoring applied. 10:31 CT Stone Protocol In Process Unspecified. EDMS 10:37 XRAY Chest (1 view) In Process Unspecified. EDMS 11:11 Inserted saline lock: 22 gauge in right wrist, using aseptic technique. Blood collected.ds4 12:09 Supa Graham MD is Referral Physician. curt 12:09 Emery Daugherty MD is Referral Physician. curt 12:29 US Abdomen Limited In Process Unspecified. EDMS 15:00 No provider procedures requiring assistance completed. Patient transferred, IV remains eh3 in place. Administered Medications: 11:00 Drug: NS 0.9% IV 1000 ml Route: IV; Rate: 125 ml/hr; Site: right forearm; eh3 12:00 Drug: Rocephin IV 1 grams Route: IV; Rate: per protocol; Site: right forearm; eh3 12:36 Follow up: Response: No adverse reaction; IV Status: Completed infusion; IV Intake: [id number] 12:00 Drug: Famotidine IVP 20 mg Route: IVP; Site: right forearm; eh3 12:36 Follow up: Response: No adverse reaction eh3 12:45 Drug: Piperacillin-Tazobactam IVPB 3.375 grams Route: IVPB; Infused Over: 60 mins; eh3 Site: right forearm; 13:15 Follow up: Response: No adverse reaction; IV Status: Completed infusion; IV Intake: eh3 100ml 13:15 Drug: NS 0.9% with KCl IV 20 mEq/L 1000 ml Route: IV; Rate: 125 ml/hr; Site: right eh3 forearm; Medication: 15:00 VIS not applicable for this client. eh3 Intake: 12:36 IV: 50ml; Total: 50ml. eh3 13:15 IV: 100ml; Total: 150ml. eh3 Outcome: 12:09 Discharge ordered by . [facility] 12:14 ER care complete, transfer ordered by MD. [facility] 15:02 Transferred by ground EMS to [facility], Transfer form completed. 3 15:02 Condition: stable 15:02 Instructed on the need for transfer. 15:02 Patient left the ED. 3 Signatures: Dispatcher [employer] EDNik Burt MD MD cha Rivera, Vanessa Jacob Jimenez ds4 Buster Palafox, Renee Barcenas RN, RN RN eh3 Ashwini Sanchez, PAJoséC PA-C sb4
--- NOTE | 2022-12-01 12:15 | EDPHYS ---
Physician Documentation [facility] Name: Leanna Judge Age: 87 yrs Sex: Male : 1935 Arrival Date: 12/01/2022 Time: 09:42 Bed 18 Private MD: Supa Graham C ED Physician Nik White HPI: 12/01 11:04 This 87 yrs old Male presents to ER via Wheelchair with complaints of Blood curt in urine. 11:04 The patient presents with urinary symptoms, hematuria. Onset: The symptoms/episode curt began/occurred 1 day(s) ago. Modifying factors: The symptoms are alleviated by nothing, the symptoms are aggravated by nothing. Associated signs and symptoms: The patient has no apparent associated signs or symptoms. Severity of symptoms: At their worst the symptoms were mild, in the emergency department the symptoms are unchanged. The patient has not experienced similar symptoms in the past. blood in urine, no pain , good flow. Historical: - Allergies: 10:03 No Known Allergies; bp - Home Meds: 10:03 gabapentin 100 mg Oral tab 2 tab three times a day [Active]; allopurinol 100 mg Oral bp tab 1 tab once daily [Active]; metoprolol succinate 25 mg Oral Tb24 1 tab once daily [Active]; escitalopram oxalate 10 mg Oral tab 1 tab once daily [Active]; valsartan 160 mg Oral tab 1 tab once daily [Active]; - PMHx: 10:03 Gout; Myocardial infarction; Hyperlipidemia; bp - Immunization history:: Adult Immunizations up to date. - Social history:: Smoking status: Patient denies any tobacco usage or history of. - Family history:: not pertinent. ROS: 11:04 Constitutional: Negative for fever, chills, and weight loss, Eyes: Negative for injury, curt pain, redness, and discharge, ENT: Negative for injury, pain, and discharge, Neck: Negative for injury, pain, and swelling, Cardiovascular: Negative for chest pain, palpitations, and edema, Respiratory: Negative for shortness of breath, cough, wheezing, and pleuritic chest pain, Abdomen/GI: Negative for abdominal pain, nausea, vomiting, diarrhea, and constipation, Back: Negative for injury and pain, MS/Extremity: Negative for injury and deformity, Skin: Negative for injury, rash, and discoloration, Neuro: Negative for headache, weakness, numbness, tingling, and seizure, Psych: Negative for depression, anxiety, suicide ideation, homicidal ideation, and hallucinations, Allergy/Immunology: Negative for hives, rash, and allergies, Endocrine: Negative for neck swelling, polydipsia, polyuria, polyphagia, and marked weight changes, Hematologic/Lymphatic: Negative for swollen nodes, abnormal bleeding, and unusual bruising. 11:04 : Positive for hematuria. Exam: 11:04 Constitutional: This is a well developed, well nourished patient who is awake, alert, curt and in no acute distress. Head/Face: Normocephalic, atraumatic. Eyes: Pupils equal round and reactive to light, extra-ocular motions intact. Lids and lashes normal. Conjunctiva and sclera are non-icteric and not injected. Cornea within normal limits. Periorbital areas with no swelling, redness, or edema. ENT: Nares patent. No nasal discharge, no septal abnormalities noted. Tympanic membranes are normal and external auditory canals are clear. Oropharynx with no redness, swelling, or masses, exudates, or evidence of obstruction, uvula midline. Mucous membranes moist. Neck: Trachea midline, no thyromegaly or masses palpated, and no cervical lymphadenopathy. Supple, full range of motion without nuchal rigidity, or vertebral point tenderness. No Meningismus. Chest/axilla: Normal chest wall appearance and motion. Nontender with no deformity. No lesions are appreciated. Cardiovascular: Regular rate and rhythm with a normal S1 and S2. No gallops, murmurs, or rubs. Normal PMI, no JVD. No pulse deficits. Respiratory: Lungs have equal breath sounds bilaterally, clear to auscultation and percussion. No rales, rhonchi or wheezes noted. No increased work of breathing, no retractions or nasal flaring. Abdomen/GI: Soft, non-tender, with normal bowel sounds. No distension or tympany. No guarding or rebound. No evidence of tenderness throughout. Back: No spinal tenderness. No costovertebral tenderness. Full range of motion. Male : Normal genitalia with no discharge or lesions. Skin: Warm, dry with normal turgor. Normal color with no rashes, no lesions, and no evidence of cellulitis. MS/ Extremity: Pulses equal, no cyanosis. Neurovascular intact. Full, normal range of motion. Neuro: Awake and alert, GCS 15, oriented to person, place, time, and situation. Cranial nerves II-XII grossly intact. Motor strength 5/5 in all extremities. Sensory grossly intact. Cerebellar exam normal. Normal gait. Psych: Awake, alert, with orientation to person, place and time. Behavior, mood, and affect are within normal limits. 11:04 ECG was reviewed by the Attending Physician. Vital Signs: 10:02 BP 113 / 57; Pulse 60; Resp 16; Temp 97.8; Pulse Ox 95% ; bp 10:30 BP 124 / 69; Pulse 59; Resp 12; Pulse Ox 96% on R/A; eh3 11:30 BP 134 / 54; Pulse 60; Resp 12; Pulse Ox 96% on R/A; eh3 12:30 BP 129 / 68; Pulse 60; Resp 17; Pulse Ox 95% on R/A; eh3 13:30 BP 130 / 79; Pulse 63; Resp 14; Pulse Ox 100% on R/A; eh3 14:30 BP 123 / 58; Pulse 72; Resp 19; Pulse Ox 99% on R/A; eh3 MDM: 09:47 Patient medically screened. sb4 10:19 Patient medically screened. curt 11:07 Differential diagnosis: nonspecific abdominal pain, urinary retention, prostatitis, curt urethritis. Data reviewed: vital signs, nurses notes, EMS record, lab test result(s), EKG, radiologic studies, CT scan, plain films. Consideration of Admission/Observation Escalation of care including admission/observation considered. I considered the following discharge prescriptions or medication management in the emergency department Medications were administered in the Emergency Department. See MAR. Test considered but Not performed: Ultrasound no renal usg. Care significantly affected by the following chronic conditions: Hypertension, PM, CAD, RI, HYPERLIPIDEMIA. 12/01 10:19 Order name: Basic Metabolic Panel; Complete Time: 11:50 curt 12/01 10:19 Order name: CBC with Diff; Complete Time: 11:50 curt 12/01 10:19 Order name: LFT's; Complete Time: 11:50 curt 12/01 10:19 Order name: Magnesium; Complete Time: 11:50 curt 12/01 10:19 Order name: NT PRO-BNP; Complete Time: 11:50 12/01 10:19 Order name: PT-INR; Complete Time: 11:50 [facility] 12/01 10:19 Order name: Troponin HS; Complete Time: 11:50 [facility] 12/01 10:19 Order name: Urinalysis w/ reflexes; Complete Time: 12:08 [facility] 12/01 11:04 Order name: Urine Culture [facility] 12/01 10:19 Order name: XRAY Chest (1 view); Complete Time: 12:19 [facility] 12/01 10:19 Order name: CT Stone Protocol; Complete Time: 11:35 [facility] 12/01 12:08 Order name: US Abdomen Limited; Complete Time: 14:52 [facility] 12/01 10:19 Order name: EKG; Complete Time: 10:20 [facility] 12/01 10:19 Order name: Cardiac monitoring; Complete Time: 11:12 [facility] 12/01 10:19 Order name: EKG - Nurse/Tech; Complete Time: 11:12 [facility] 12/01 10:19 Order name: IV Saline Lock; Complete Time: 11:11 [facility] 12/01 10:19 Order name: Labs collected and sent; Complete Time: 11:11 [facility] 12/01 10:19 Order name: O2 Per Protocol; Complete Time: 11:11 [facility] 12/01 10:19 Order name: O2 Sat Monitoring; Complete Time: 11:11 [facility] EC:04 Rate is 60 beats/min. Rhythm is regular. QRS [place] is Normal. WI interval is normal. QRS curt interval is normal. QT interval is normal. No Q waves. T waves are Normal. No ST changes noted. Clinical impression: Abnormal EKG without significant change and No evidence of ischemia. Interpreted by me. Reviewed by me. Administered Medications: 11:00 Drug: NS 0.9% IV 1000 ml Route: IV; Rate: 125 ml/hr; Site: right forearm; 3 12:00 Drug: Rocephin IV 1 grams Route: IV; Rate: per protocol; Site: right forearm; 3 12:36 Follow up: Response: No adverse reaction; IV Status: Completed infusion; IV Intake: [id number] 12:00 Drug: Famotidine IVP 20 mg Route: IVP; Site: right forearm; 3 12:36 Follow up: Response: No adverse reaction 3 12:45 Drug: Piperacillin-Tazobactam IVPB 3.375 grams Route: IVPB; Infused Over: 60 mins; eh3 Site: right forearm; 13:15 Follow up: Response: No adverse reaction; IV Status: Completed infusion; IV Intake: eh3 100ml 13:15 Drug: NS 0.9% with KCl IV 20 mEq/L 1000 ml Route: IV; Rate: 125 ml/hr; Site: right eh3 forearm; Disposition Summary: 12/01/22 12:14 Transfer Ordered Transfer Location: [facility] curt Reason: Higher level of care curt Condition: Fair(12/01/22 12:14) curt Problem: new(12/01/22 12:14) curt Symptoms: have improved(12/01/22 12:14) curt Accepting Physician: TO [facility](12/01/22 15:02) 3 Diagnosis - Disease of biliary tract, unspecified curt - Disorders of gallbladder, biliary tract and pancreas in diseases classified curt elsewhere - PANCREATIC MASS - Abnormal findings on diagnostic imaging of liver and biliary tract curt - Presence of cardiac pacemaker curt Forms: - Medication Reconciliation Form curt - SBAR form curt Signatures: Dispatcher [employer] EDNik Burt MD MD cha Nieto, Roman, MD MD rn Peltier, Brian, RN RN Renee Vasquez RN RN eh3 Ashwini Sanchez PA-C PA-C sb4 Corrections: (The following items were deleted from the chart) 12:10 12:09 Home curt curt 12:10 12:09 new curt curt 12:10 12:09 have improved curt curt 12:10 12:09 Stable curt curt 12:10 12:09 Hematuria, unspecified curt curt 12:10 12:09 Gross hematuria curt curt 12:10 12:09 Acute cystitis with hematuria curt curt 13:02 12:14 TO [facility] curt curt 15:02 13:02 TO [facility] curt eh3
--- NOTE | 2022-12-01 12:18 | RAD REPORT ---
EXAM DESCRIPTION: RADChest Single View12/01/2022 10:40 am CLINICAL HISTORY: COUGH COMPARISON: Chest Single View dated 05/26/2020; Chest Single View dated 05/15/2020; Chest Single View dated 05/13/2020; Chest Pa And Lat (2 Views) dated 01/13/2020 TECHNIQUE: Portable AP view of the chest. FINDINGS: The lungs are clear. Diffuse hyperlucency, suggestive of COPD. No pneumothorax or effusion . The cardiomediastinal contours are unremarkable. Left chest wall pacer/AICD in place. IMPRESSION: No acute cardiopulmonary process.
[2022-12-01] MEDS ORDERED: NA CHLORIDE 0.9% 100 ML ONE (12:27)
[2022-12-01] MEDS ORDERED: PIPERACIL/TAZO 3.375 GM VIAL IV ONE (12:27)
[2022-12-01] MEDS ORDERED: NS KCL 20MEQ 1,000 ML IV ONE (13:23)
--- NOTE | 2022-12-01 13:51 | RAD REPORT ---
EXAM DESCRIPTION: US - Abdomen Exam Limited - 12/01/2022 12:34 pm CLINICAL HISTORY: ABD PAIN COMPARISON: Stone Protocol dated 12/01/2022 FINDINGS: The gallbladder demonstrates echogenic but nonshadowing material at the gallbladder fundus . Gallbladder wall measures 3 millimeters which is borderline thickened. The common bile duct is dila aly measuring 11 mm. The liver demonstrates no findings of intrahepatic biliary dilatation. IMPRESSION: Borderline wall thickening and distended gallbladder without convincing evidence of acut e cholecystitis otherwise. Tumefactive sludge versus noncalcified stones in the gallbladder fundus. C ommon bile duct dilatation noted that is likely in part related to the patient's age. MRCP could excl ude choledocholithiasis if there is a clinical concern.
[2022-12-01 15:57] VITALS: TEMP 97.8
[2022-12-01 16:05] VITALS: BP 123/58; O2SAT 99
--- NOTE | 2022-12-02 20:26 | EKG ---
Test Date: 2022-12-01 Test Time: 10:58:12 Yeast Pumper: LOLITA MEASUREMENT RESULTS: Intervals: Rate: 60 AL: 198 QRSD: 180 QT: 530 QTc: 530 [place]: P: AL: 198 QRS: -67 T: 114 INTERPRETIVE STATEMENTS: AV dual-paced rhythm Abnormal ECG Compared to ECG 05/26/2020 04:52:23 No significant changes Electronically Signed On 12-02-22 20:23:49 CDT by Thai Breen
== END 2022-12-01 15:02 | disposition short-term general hospital (02) ==
LOC: ER 09:42
DX: K83.8 Other specified diseases of biliary tract (principal); K86.89 Other specified diseases of pancreas; R93.2 Abnormal findings on diagnostic imaging of liver and biliary tract; Z95.0 Presence of cardiac pacemaker; E78.5 Hyperlipidemia, unspecified; I25.2 Old myocardial infarction
CPT/HCPCS: 96365; 96367; 93005; 87088; 85025; 81001; 87086; 80048; 36415; 83735; 85610; 80076; 84484; 83880; 76377; 74176; 71045; 76705; 96375; 99285; J2543; J7030; J0696; J3480

== ENCOUNTER 2022-12-20 16:35 | Emergency (ER) | payer OTHER, BC ==
--- OUTSIDE RECORDS SUMMARY | 2022-12-20 16:41 | XMS REPORT | Continuity of Care Document ---
:1935 Author Organization [facility] t Address [address] [place] [address] [address] [place] [address] Care Team Providers Name Role Phone Asked, No Pcp Primary Care Physician Unavailable JULES REIS Attending Clinician Unavailable GINA NAPOLES Attending Clinician Unavailable ERIKA HINOJOSA Attending Clinician Unavailable MERT MILLER Attending Clinician Unavailable Mert Miller MD Attending Clinician Tripp GOLD, Roxie Navarrete Attending Clinician Unavailable Scott Blood MD Attending Clinician [phone] David Melo MD Attending Clinician Jules Reis MD Attending Clinician [phone] SCOTT BLOOD Attending Clinician Unavailable DIEUDONNE PAK Attending Clinician Unavailable Rosalba Chau Attending Clinician Unavailable Konstantin Morataya MD Attending Clinician [phone] Cyndee Patel Attending Clinician KONSTANTIN MORATAYA Attending Clinician Unavailable GINA BOSWELL Attending Clinician Unavailable DAVID MELO Admitting Clinician Unavailable ERIKA HINOJOSA Admitting Clinician Unavailable DIEUDONNE PAK Admitting Clinician Unavailable HORACIO LUGO Admitting Clinician Unavailable GINA BOSWELL Admitting Clinician Unavailable Payers Payer Name Policy Type Policy Number Effective Date Expiration Date S ource MEDICARE A B [id number] 1998 00:00:00 BCBS FED [id number] 2019 00:00:00 Problems Condition Condition Condition Status Onset Resolution Last Treating Co mments Source Name Details Category Date Date Treatment Clinician Date Pancreatic Pancreatic Disease [facility] Acute Acute Disease Active [facility] cholecysti 1-03 Nany kes tis due to tis due to 00:00: Me dical biliary biliary 00 Center calculus calculus Cardiac Cardiac Disease Active [facility] arrhythmia arrhythmia 05-31 [facility] 00[facility]: Hospita 00 l Allergies, Adverse Reactions, Alerts Allergy Allergy Status Severity Reaction(s) Onset Inactive Treating Comm ents Source Name Type Date Date Clinician NO KNOWN Allergy Active [facility] Family History Family Member Diagnosis Comments Start Date Stop Date Source Natural brother Cancer [facility] Natural mother Heart disease [facility] Natural mother [facility] Natural sister Brain cancer [facility] Natural father [facility] Social History Social Habit Start Date Stop Date Quantity Comments Source History [facility] History of tobacco Current sm[facility] Gender identity [facility] Sexual orientation [facility] History [facility]Med Medical [facility] Alcohol intake 2022-12-02 2022-12-02 Ex-drinker [facility] 00:00:00 (finding) Medical Center Exposure to 2022-11-21 2022-12-[address] [facility] SARS-CoV-2 (event) 00:00:00 19:23:00 Medica l Center History [facility] 2022-12-01 2022-12-[address] [facility] Transport Med 00:00:00 00:00:[address] History [facility] 2022-12-01 2022-12-[address] [facility] Housing Unable to 00:00:00 00:00:00 Medical Center Pay History [facility] 2022-12-01 2022-12-[address] [facility] Housing Places 00:00:00 00:00:00 Medical Ce nter Lived History [facility] 2022-12-01 2022-12-[address] [facility] Housing Homeless 00:00:00 00:00:00 Medical Center Last Year History of Social 2019-06-01 2019-06-[address] function 00:00:00 00:00:00 Hospital History [facility] 2019-05-31 2019-05-31 1 [facility] Frequency 00:00:00 00:00:00 Hospita l Sex Assigned At [birth year] [facility] 00:[facility] 00:00:00 Hospital Smoking Status Start Date Stop Date Source Ex-smoker 2022-12-01 00:00:00 2022-12-01 00:00:00 [facility] Never smoked tobacco [facility] Medications Ordered Filled Start Stop Current Ordering Indication Dosage Frequency Signature Comments Components Source Medication Medication Date Date Medication? Clinician (SIG) Name Name metoprolol Yes 25mg QD Take 1 [facility] succinate 7-13 tablet (25 [facility] (TOPROL-XL) 18:24: mg total) M edical 25 MG 24 hr 50 by mouth Cent er tablet daily. valsartan Yes 320mg QD Take 1 [facility] (DIOVAN) 7-13 tablet [facility] 320 MG 18:24: (320 mg Medical tablet 50 total) by Center mouth daily. escitalopra Yes 20mg QD Take [address] [facility] oxalate 7-13 tablets [facility] (LEXAPRO) 18:24: (20 mg Medica l 10 MG 50 total) by Center tablet mouth daily. gabapentin 0 Yes 200mg Q.[id number] Take [address] (NEURONTIN) 7-13 [id number] capsules [facility] 100 MG 18:24: 3D (200 mg Medical capsule 50 total) by Center mouth 3 (three) times daily. allopurinoL 0 Yes 100mg QD Take [address] (ZYLOPRIM) 7-13 tablet [facility] 100 MG 18:24: (100 mg Medical tablet 50 total) by Center mouth daily. aspirin 81 2022-0 Yes 81mg QD Take 1 [facility] MG EC 7-13 tablet (81 [facility] tablet 18:24: mg total) Medica l 50 by mouth Center daily. nitroglycer 2022-0 2023- No .6mg Place [address] in 12-04 tablet [facility] (NITROSTAT) 15:34: 00:00 (0.6 mg Me dical 0.6 MG SL 50 :00 total) Center tablet under the tongue every 5 (five) minutes as needed for Chest pain Put 1 pill under tongue every 5min as needed for chest pain.No more than 3 doses in 15min.Call 911 if pain is unrelieved 5min after 1st dose . omeprazole 3-0 2023- No 20mg Take [address] (PriLOSEC) 12-04 capsule [facility] 20 MG 15:34: 00:00 (20 mg Medical capsule 50 :00 total) by Center mouth daily as needed. nitroglycer 2022-0 2022- No .6mg Place [address] in 12-04 tablet [facility] (NITROSTAT) 15:34: 00:00 (0.6 mg Me dical 0.6 MG SL 50 :00 total) Center tablet under the tongue every 5 (five) minutes as needed for Chest pain Put 1 pill under tongue every 5min as needed for chest pain.No more than 3 doses in 15min.Call 911 if pain is unrelieved 5min after 1st dose . omeprazole 2022-0 2022- No 20mg Take [address] (PriLOSEC) 12-04 capsule [facility] 20 MG 15:34: 00:00 (20 mg Medical capsule 50 :00 total) by Center mouth daily as needed. metoprolol 2023-0 Yes 25mg QD Take 1 [facility] succinate 12-04 tablet (25 Luke s (TOPROL-XL) 15:34: mg total) M edical 25 MG 24 hr 48 by mouth Cent er tablet daily. valsartan 2023-0 Yes 320mg QD Take 1 [facility] (DIOVAN) 12-04 tablet [facility] 320 MG 15:34: (320 mg Medical tablet 48 total) by Center mouth daily. escitalopra 2023-0 Yes 20mg QD Take [address] m oxalate 7-13 tablets [facility] (LEXAPRO) 15:34: (20 mg Medica l 10 MG 48 total) by Center tablet mouth daily. gabapentin 2023-0 Yes 200mg Q.[id number] Take [address] (NEURONTIN) 7-13 [id number] capsules [facility] 100 MG 15:34: 3D (200 mg Medical capsule 48 total) by Center mouth 3 (three) times daily. allopurinoL 0 Yes 100mg QD Take [address] (ZYLOPRIM) 7-13 tablet [facility] 100 MG 15:34: (100 mg Medical tablet 48 total) by Center mouth daily. aspirin 81 Yes 81mg QD Take 1 [facility] MG EC 7-13 tablet (81 [facility] tablet 15:34: mg total) Medica l 48 by mouth Center daily. clopidogreL 2022- No 75mg QD Take [address] (PLAVIX) 75 7-10 07-10 by mouth Suresh es mg tablet 16:37: 00:00 daily. Medic al 51 :00 Center clopidogreL 2022- No 75mg QD Take [address] (PLAVIX) 75 7-10 07-10 by mouth Suresh es mg tablet 16:37: 00:00 daily. Medic al 51 :00 Center metoprolol Yes 25mg QD Take [address] succinate 1-07 by mouth [facility] (TOPROL-XL) 13:43: daily. Medi kilo 25 MG 24 hr 19 Center tablet clopidogreL Yes 75mg QD Take [address] (PLAVIX) 75 1-07 by mouth Luke s mg tablet 13:43: daily. Medica l 19 [place] valsartan Yes 320mg QD Take [address] (DIOVAN) 1-07 mg by [facility] 320 MG 13:43: mouth Medical tablet 19 daily. [place] escitalopra Yes 10mg QD Take [address] m oxalate 1-07 by mouth [facility] (LEXAPRO) 13:43: daily. Medica l 10 MG 19 Center tablet gabapentin Yes 100mg Q.[id number] Take [address] (NEURONTIN) 1-07 [id number] mg by L ukes 100 MG 13:43: 3D mouth 3 Medical capsule 19 (three) Center times daily. allopurinoL Yes 100mg QD Take [address] (ZYLOPRIM) 1-07 mg by [facility] 100 MG 13:43: mouth Medical tablet 19 daily. [place] aspirin 81 2021-0 Yes 81mg QD Take 81 mg C [...] 13:43: daily as Medical capsule 19 needed. [place] metoprolol Yes 25mg QD Take [address] succinate 1-07 by mouth [facility] (TOPROL-XL) 13:43: daily. [facility] kilo 25 MG 24 hr 19 Center tablet clopidogreL Yes 75mg QD Take [address] (PLAVIX) 75 1-07 by mouth Luke s mg tablet 13:43: daily. Medica l 19 [place] valsartan Yes 320mg QD Take [address] (DIOVAN) 1-07 mg by Lukes 320 MG 13:43: mouth Medical tablet 19 daily. [place] escitalopra Yes 10mg QD Take [address] m oxalate -07 by mouth [facility] (LEXAPRO) 13:43: daily. Medica l 10 MG 19 Center tablet gabapentin Yes 100mg Q.[id number] Take [address] (NEURONTIN) 1-07 [id number] mg by L ukes 100 MG 13:43: 3D mouth 3 Medical capsule 19 (three) Center times daily. allopurinoL Yes 100mg QD Take [address] (ZYLOPRIM) 1-07 mg by [facility] 100 MG 13:43: mouth Medical tablet 19 daily. [place] aspirin 81 Yes 81mg QD Take [address] MG EC 1-07 by mouth [facility] tablet 13:43: daily. Medical 19 [place] nitroglycer Yes .6mg Place 0.6 C HI [...] 00 total) by Center mouth daily. atorvastati Yes 40mg QD Take 0.[address] [facility] (LIPITOR) 05-31 tablets [facility] 80 MG 00:00: (40 mg Medical tablet 00 total) by Center mouth daily. atorvastati 2022- No 40mg QD Take 0.[address] [facility] (LIPITOR) 05-31 tablets Luke s 80 MG 00:00: 00:00 (40 mg Medical tablet 00 :00 total) by Center mouth daily. atorvastati 2022- No 40mg QD Take 0.[address] n (LIPITOR) 05-31 tablets Luke s 80 MG 00:00: 00:00 (40 mg Medical tablet 00 :00 total) by Center mouth daily. simvastatin 2020-0 Yes 40mg QD Take 40 mg [facility] (ZOCOR) 40 06-[address] MG tablet 12:41: nightly. [facility]osp phyllis 47 l gabapentin 2020-0 Yes 100mg Q.[id number] Take 100 [facility] (NEURONTIN) -09 [id number] mg by s t 100 mg 12:41: [...] (five) minutes as needed for chest pain. simvastatin 2020-0 Yes 40mg QD Take 40 mg [facility] (ZOCOR) 40 1-[address] MG tablet 12:41: nightly. [facility] 47 l gabapentin 2020-0 Yes 100mg Q.[id number] Take 100 [facility] (NEURONTIN) 1-09 [id number] mg by s t 100 mg 12:41: [...] Date Status Commen ts Source Name Name MARA COVID-19 MRNA 2020-07-13 Completed Meth odist VACCINATION 00:00:00 [facility] PFIZER COVID-19 MRNA 2020-07-13 Completed Meth odist VACCINATION 00:00:00 [facility] PFIZER COVID-19 MRNA 2020-06-22 Completed Meth odist VACCINATION 00:00:00 [facility] PFIZER COVID-19 MRNA 2020-06-22 Completed Meth odist VACCINATION 00:00:00 Hospital Vital Signs Vital Name Observation Time Observation Value Comments Source HEIGHT 2020-05-26 13:26:00 179.8 cm WEIGHT 2020-05-26 13:26:00 98.249 kg HEIGHT 2020-05-26 13:26:00 179.8 cm WEIGHT 2020-05-26 13:26:00 98.249 kg Systolic blood 2022-12-04 12:50:00 128 mm[Hg] [facility] Diastolic blood 2022-12-04 12:50:00 67 mm[Hg] [facility] Heart rate 2022-12-04 12:50:00 60 /min [facility] Oxygen saturation in 2022-12-04 12:50:00 97 /min [facility] Arterial blood by Medical Ce nter Pulse oximetry Respiratory rate 2022-12-04 11:15:00 16 /min [facility] Body temperature 2022-12-04 07:00:00 36.22 Hannah [facility] Body height 2022-12-01 17:43:00 179 cm [facility] Body weight 2022-12-01 17:43:00 98.2 kg [facility] BMI 2022-12-01 17:43:00 30.65 kg/m2 [facility] Procedures Procedure Date / Time Performing Clinician Source Performed CT CHEST WITHOUT IV 2022-12-04 14:10:00 Jules Reis [facility] CONTRAST [facility] MR ABDOMEN WITH & WITHOUT 2022-12-04 12:36:00 Dieudonne Pak [facility] IV CONTRAST [facility] XR CHEST 2 VIEWS 2022-12-04 09:45:00 Gina Napoles [facility] COMPREHENSIVE METABOLIC 2022-12-04 04:01:00 Jules Reis [facility] PANEL [facility] CARBOHYDRATE ANTIGEN 19-9 2022-12-04 04:01:[address] [facility] ([place] 19-9) [facility] PACEMAKER CHECK WITH 2022-12-04 00:00:00 Rosalba Chau [facility] CBC W/PLT COUNT & AUTO 2022-12-03 12:49:00 Grant Orosco [facility] COMPREHENSIVE METABOLIC 2022-12-03 12:49:00 Gratn Orosco [facility] PANEL [facility] CBC W/PLT COUNT & AUTO 2022-12-03 12:49:00 Grant Orosco [facility] DIFFERENTIAL [facility] REPORT OF PROCEDURE - 2022-12-02 14:55:31 Konstantin Morataya [facility] ENDOSCOPY URL [facility] REPORT OF PROCEDURE - 2022-12-02 14:48:09 Joey [facility] ENDOSCOPY URL [facility] TISSUE EXAM 2022-12-02 14:22:00 Joey [facility] EGD 2022-12-02 13:20:00 Rafalankur [facility] (ESOPHAGOGASTRODUODENOSCOP [facility] Y) ERCP, WITH SPHINCTEROTOMY 2022-12-02 13:20:00 [facility] PROCEDURE W/ C-ARM 2022-12-02 13:20:[address] [facility] kes [facility] ULTRASOUND, UPPER GI 2022-12-02 13:20:00 Joey [facility] TRACT, ENDOSCOPIC, WITH [facility] FINE NEEDLE ASPIRATION ENDOSCOPIC RETROGRADE 2022-12-02 13:20:00 Rafalankur [facility] CHOLANGIOPANCREATOGRAPHY, [facility] WITH BILE DUCT STENT INSERTION CBC (HEMOGRAM ONLY) 2022-12-02 05:38:00 Dieudonne Pak [facility] BASIC METABOLIC PANEL 2022-12-02 05:38:00 Dieudonne Pak [facility] HEPATIC FUNCTION PANEL 2022-12-02 05:38:00 Dieudonne Pak [facility] PROTHROMBIN TIME/INR 2022-12-02 05:38[facility]00 [facility] Plan of Care Planned Activity Planned Date Details Comments Source Future Scheduled 2023-12-[address] [facility] Test 00:00[facility]00 [facility] Scre[facility] (12+) [code = Tobacco Cessation Counseling and Screening (12+)] Future Scheduled 2023-12-[address] [facility] Test 00:00:00 [facility] Screening (12+) [code = Tobacco Cessation Counseling and Screening (12+)] Future Scheduled 2023-01-23 Influenza Vaccine (#1) [facility] Test 00:00:00 [code = Influenza Medical Ce nter Vaccine (#1)] Future Scheduled 2023-01-23 Influenza Vaccine (#1) [facility] Test 00:00:00 [code = Influenza Medical Ce nter Vaccine (#1)] Future Scheduled 2023-01-23 Influenza Vaccine (#1) [facility] Test 00:00:00 [code = Influenza Medical Ce nter Vaccine (#1)] Future Scheduled 2022-12-13 SHINGLES VACCINES (1 [facility] Test 17:55:03 of 2) [code = SHINGLES VACCINES (1 of 2)] Future Scheduled 2022-12-13 65+ [facility]UMOCOCCAL [facility] Test 17:55:03 VACCINE (1 - PCV) [code = 65+ PNEUMOCOCCAL VACCINE (1 - PCV)] Future Scheduled 2022-12-13 COVID-19 VACCINE (3 - [facility] Test 17:55:03 Pfizer series) [code = COVID-19 VACCINE (3 - Pfizer series)] Future Scheduled 2022-12-13 INFLUENZA VACCINE Method [facility] Hospital Test 17:55:03 [code = INFLUENZA VACCINE] Future Scheduled 2022-05-[address] [facility] Test 00:00:00 (12+) [code = Medical Center DEPRESSION SCREENING (12+)] Future Scheduled 2022-05-25 FALLS RISK SCREENING [facility] Test 00:00:00 [code = FALLS RISK Medical C enter SCREENING] Future Scheduled 2022-05-[address] [facility] Test 00:00:00 (12+) [code = Medical Center DEPRESSION SCREENING (12+)] Future Scheduled 2022-05-25 FALLS RISK SCREENING [facility] Test 00:00:00 [code = FALLS RISK Medical C enter SCREENING] Future Scheduled 2022-05-[address] [facility] Test 00:00:00 (12+) [code = Medical Center DEPRESSION SCREENING (12+)] Future Scheduled 2022-05-25 FALLS RISK SCREENING [facility] Test 00:00:00 [code = FALLS RISK Medical C enter SCREENING] Future Scheduled 2022-03-30 HEPATITIS B VACCINES Met [facility] Test 22:04:28 (1 of 3 - 3-dose series) [code = HEPATITIS B VACCINES (1 of 3 - 3-dose series)] Future Scheduled 2022-03-30 SHINGLES VACCINES (1 [facility] Test 22:04:28 of 2) [code = SHINGLES VACCINES (1 of 2)] Future Scheduled 2022-03-30 65+ [facility]UMOCOCCAL [facility] Test 22:04:28 VACCINE (1 - PCV) [code = 65+ PNEUMOCOCCAL VACCINE (1 - PCV)] Future Scheduled 2022-03-30 COVID-19 VACCINE (3 - [facility] Test 22:04:28 Booster for Pfizer series) [...] RISK Medical C enter SCREENING] Future Scheduled 2020-09-07 COVID-19 VACCINE (3 - [facility] Test 00:00:00 Booster for Pfizer Medical C enter series) [code = COVID-19 VACCINE (3 - Booster for Pfizer series)] Future Scheduled 2020-09-07 COVID-19 VACCINE (3 - [facility] Test 00:00:00 Booster for Pfizer Medical C enter series) [code = COVID-19 VACCINE (3 - Booster for Pfizer series)] Future Scheduled 1999-06-[address] [...] Date/Time Type Type Clinicians Facility Department ID 2022-12-04 Inpatient ER SMILEY [facility] [id number] SLE 12:27:02 JULES 2022-12-04 Inpatient ER GINA NAPOLES [facility] [id number] SLE 09:17:05 2020-05-26 Inpatient ER MICAELA [facility] G[facility] [id number] SLE 12:59:00 ERIKA 2022-12-17 2022-12-17 Outpatient EL ANGELA [facility] [id number] SLE 00:00:00 00:00:00 [facility] 2022-12-17 2022-12-17 Telephone Angela [facility] [id number] 00:[facility] 00:00:00 [facility] 2022-12-17 2022-12-17 Telephone Tripp [facility] [id number] 00:00:00 00:00:00 Roxie [facility] 2022-12-01 2022-12-04 [facility] Scott Blood [facility] [id number] [facility] 16:08:00 18:24:00 Encounter David Melo Lorrie Reis, [facility] 2022-12-01 2022-12-04 Inpatient ER SMILEY, [facility] [id number] SLE 16:08:00 18:24:00 [facility] [place] 2022-12-04 2022-12-04 Inpatient ER CHANGELA, [facility] [id number] SLE 10:08:27 00:00:00 DIEUDONNE 2022-12-04 2022-12-04 Orders Rosalba Chau [facility] [id number] 00:[facility]00 00:00:00 [facility] 2022-12-04 2022-12-04 Orders Rosalba Chau [facility] [id number] 00:00:00 00:00:00 Only [facility] 2022-12-02 2022-12-02 Surgery Othman, [facility] [id number] 14:33:00 15:59:00 [facility] 2022-12-02 2022-12-02 Surgery Othman, [facility] [id number] 14:33:00 15:59:00 [facility] 2022-12-02 2022-12-02 Anesthesia Jorge, [facility] [id number] 13:36:00 15:19:00 Event [facility] 2022-12-02 2022-12-02 Anesthesia Jimbodioziella, [facility] [id number] 13:36:00 15:19:00 Event [facility] 2022-12-02 2022-12-02 Outpatient ER OTHMAN, [facility] [id number] SLE 15:00:02 15:00:02 [facility] 2022-12-01 2022-12-01 Travel [facility] [id number] [facility] 00:[facility]00 00:00:00 [facility] 2022-12-01 2022-12-01 Travel [facility] [id number] [facility] 00:[facility]00 00:00:00 [facility] 2020-07-13 2020-07-13 Outpatient [facility] [id number] [place] 00:00:00 00:00:[address] 2020-06-22 2020-06-22 Outpatient [facility] [id number] [place] 00:00:00 00:00:[address] 2019-05-31 2019-06-02 Inpatient ANDREIA, [place] [id number] [place] 00:00:00 00:00:00 GINA [address] Results Test Description Test Time Test Comments Results Result Comments Source Tissue Exam 2022-12-08 09:45:56 Test Item Value Reference Range Interpretation Comme nts Case Report (test code = 104) Surgical Pathology Report Case: [id number] Authorizing Provider: Konstantin Morataya, Collected: 12/02/2022 02:22 PM Ordering Location: [address] Received: 12/03/2022 12:07 PM Service Pathologist: Ivonne Geurrero MD Specimen: Pancreas, Head, Head of Pancreas Mass BX via FNB DIAGNOSIS (test code = 3220) w7wpbBItXICse7qqEFLcgGEeJmQdIiFiZoJwZy pc kHJkNXehocFjEHpdxPnuXWGiRGnzHJ6cjPxsjGn3 wOrqPERdllR1bLQoJWvxk0cdMIC4i6tefwrgVUOb CFipKj3dvAVqpDefDjLxPPUcFIf4rN87BABltF3f eDChKSrydrZaRHhnhnBnlyNoEse8XMY8vYrbIIHt ezqiZwD0LNepTUFyuqikNRg0BNyuBQMxeGD9DBHo wLUtZ4QtZWQhOA3bymg6FYY4VQthPIAsSpI1PYYw lZUzBNMlyOltVRdew756XGD3NpFpFWJjmcZaiBse fN3xXdGtZVKFUqNAHY7PJrFPIRyAXMqOTWKcDOWG TuorVTXuO5RNBGEGMU2UMCATRLJPU4OSFEVQZ8OR INebzYOfWHOxdnQqFYZeHXEDcWBckGRkg0RhTAZh auDuXOQtv8PeriUvhn4tQZkrg3JzIOZelT1fnyEf yAGxITFcUTbkKHK0x3joiPOnAURwvMRxPICdXQzq zoWnDAElHrpftijmYQFdFJQ8kzWdZROsLFyuFNIx YZefGm1rbRBndObgBsEbGVWqs1xlirAZyzkidUh9 x0ejTQFhMrT1vIRvDSchW1mymcQosATgETInIKn8 rF33WHUlcF1ytPFdIXaoffFhUoV1DBiiHYJkRjJ0 RUEbuAAlLIAhX7gvQWYdZLwcPPXhOVeaeGOcHSS3 bBuce4M3wGLhmADylSsdWgTzQkGzQfSJi5EoQOn3 uIehC6UxYJLgNyI9nTMnODMuMXsjKPIeGTEiynG4 sT17PEfjrlX5yZXux9Uls34xc455jG8ngERtTUU9 TCWnNOOunCYqCVOkCDC6ZLTccCKtF3ctBYOiQP0e vdkiWYatNJroCNGbuJI5DYBlzDWzH8HtHUPtMWgw IVYaqzm5YzWePa0euFZoiBaaQPtjy1fdn4shxBDy Ilh4WKAzQtNpTvbeAYvly9Gyx5ajAXFtpp4gXHZ2 hMKscVdda3E3qUKuTXSshWEnZVNqOQ7hyJNmNBBj sL7fpewlOWQvVhOawgqgILZchAblghSbFh3qxYxi HRV3MMzrS3potY3fFqN1HAcqT0rpmM1oTTi5IUxs KYUlgBD2dqA3AQGmsVKvJ9VliR6wOBWqQJ4wstz4 x1iuXLH5XGycXQIrRkN8ghM3AYLdnORmKIWvnOfi YAggh488TOW3JpUjJBAfs1IrA3PavAzyQ04ibDgz C85vBEWfgBkrhC8mbBzrdI5sGiQzLqNpFWxckRnl HR5rSJTzE9ebmDFpKSApZLZaU1qbPeYphJ4qgNgp OEpkkiKzAMNpNav5QEIdcAKqLVSaUig1INPjFDHx V01czyyzQAM7qZ5oo4ayw5MpGPxsIQT2LFSwc86i AGlhmnM2IKjhLr27BGacGSE1QTgrAQK9pC== COMMENT (test code = 3359) y0pbvMBkHYAscDUmBPXxZ7l4cEAyk4J8xuwgJH0v uEhiwKe2tThnVZEqwnL1kLDzGPzch8mlXVN3w8ks pwttPENiBVjpHt0zwTJoyMycQcTqTJZmIBs9bB34 PXGqkY1ghNLbWDrwjdTsMCszvqXtleSfKqx3FEE9 xUyiQAEgpmuwDpW1XSejBGIppgluOSl0ITyrCRLi kRN0GTJryWYjB2DwNACpGW2cpza1UHP2XGsuTKXm EdF2TTLrdOFkAXBmfUcqMBreg499UVO0TgYoXPXp nlZycJxzbP3xEgXcVMpiIdDyETpdXSRagsTuMON0 bDPxFrfazRB8QXTjy9ziWEVeHTFbmSrzDV41bDtk SzCuH26wnwRnSO2jTHKjqtjulmMoMF7adgQhvZdy OKVcjcLzU4r1dCSuy9z0sZZxRQ1zALVexDGciKFm JNKrWmRcl5hcJLNoQNHsyPRhgmvyWBmgAxdvsW4u mG9zpBBwhlHqxKFcWVZvNgg+VmVyeSBmZXcgYXR5 qQnvMIgkY9wvxvXbRHXeVMZsSJRaWJHgRxMsJLZr RJxvRNGtMHUqvTGuu7KuVAE8eo7qYZZbztUjq1As TUTov08gaXPqxU8qjUJaQEW5tIqoKZesR5EeeCDt XCGkqeSTsJZxFwnyPXwhO5OoWIWgSIVxdvPgds0y bcpvYb3jBMJlFLjwXctbkSOvvXilLoRwsDO3WDig FQVzbo8kRHCvdG7bmRFqXIbke7O4NIEuATUpQNVs inw2qKQiXLBoKCgeq5BfkmLiFY0wt5XqLpTcaFCu LZZpsaA9mLwsQFGevNZlYR0opSPkBCXtmhYJKwey u6OkOHZ7eWAlhSMqEEpceZ56CFIelhX2lQNsbYFu x7EyENvek6Fdi00dsEVxB4Ouy1uiRfvwmPczxoAb x8MjSB5gumKoxlNgrUC4aG2btS8uuGZtMK5scGUj MNYsCLlzJBFfp1ZyaOCvxxMlduCeYZR3DDQoFFQb pgAagvKstJvzeuvnw5F2EZxslq8ayXOroA== CPT Code(s) (test code = 3357) j4qqoCQlYHQclZXtKKMfX9gupeUuQEAucFRo Z3Bh mydiWAilLY7fDV2fdHiwbVOvzHLgBPWlUfUxh7ia v141zXDkl2bbTNVZGLgyZHMHNJz9c4biWPGKlkmg zLq8qRwfY16rl1L8DpqrE41shNMwNQK1MPJnSYFe kHCuTCWuWIE7SSVjdSTeR6quCDWzTP2lnvrhCRkf FJxzTDFgxDF0ICHyvXSrF1JoKAGkCVgsQQKpsrc1 NrMwIu3uwHSksWtqNNyuTWJfVSPxQPwnMKGfPSYx MjAgODgzMDcsODgzNDJccGFyfQ== CLINICAL HISTORY (test code = 3356) t2yqwLTbRRQgsXEvHHEeI8bmdvMdNEH vuOPsS4Va qtodRWbpJL9hDE3noQojiSJqbRStDSErRwYqn7ze q926hDMeh2qbMUKFijaaeNl2zPhxA36gd8X5Jzjy N34crDZvHYB1CVEeYTFlpUQtVGEpPCY1AZLsxMVa A3inONIrYY6erhhzZSzjRXnjPCUejIU1IICqcMUw J8ArFYDnSRuwIZVixfz3RrYjCs8fxWSupTyjPTsk LZWpYAXvMPuyPZMlMwBnWHTwP2EoCURhHeOqRZTr XHBhcn0= GROSS DESCRIPTION (test code = j2qnvHDqACAhzTRBSZGvMQZxLQ1iyMagmPu4 cGdw [id number]) VLQbawT7aTRgFTdoo2vfIHX8q5dykgHDTzffYCGw RQ0fNUudAIKuUN2dBeXnDAGzQzEcARMtqWRziuOi WzXqUDXugJPlbCI5EWLyUI2qtyhyGYdkKClcYNQr leB5ZSPufPDgQ8ApJHHpWL7asdqgDRL9FXOFOpti Zr6blHBzdFxaDgJaWsIzSPUiMQMpVQPxkIgbCAHx PEn5eK3XWwazH67xt9Q7Bzy0DAQpURLfF1GrWN0i JZNamUXvP11INgmgKHH1JDGIHmszRmbbhLbac4Zx dCBcXHNnIFxcaWQgNTEwMDAgXFxkYiBPVlIgIiAx HUIwZlW9HGJsILa2RVdsVwZMIHD0QJSgFsXoRUw9 RDevUFcctQWkPNRlGANxFXPwQRsghjI3h9kkSNHo pTSjYNH2QTsir5nfVYrhJNX1YKVtOuTmMWQsNL7U MdVyHHGuEWPwKhk4QaM2IOq3TGJZPtHuOyOfGjBv JLX9DsXnNQd1QBf3YAnAPiG5PlX5MxXfTvBmMDY4 EiMqVQs6ECUsPZzqvrTpRZbmMgwxEAsvY23biHBd ZCANClxwbGFpblxmczIyIEEuIFBhbmNyZWFzLCBI UKBnFYCntgUTWjyiIGDvZM3QHESsAEihLSCeOqZs rFOqP5azEASfI73nd4FUn3CeNH9JZOo6zcYvjkif fL8bKEFjjgJuBQdtL7FmUHObCtDmLoPmZLr9TJIr tK8oHl5sfWQgkO2xvSGtEJukEDZ1lSUnLOIbIWQs EDKsQA83BEoRUENviuInMBntcIUstQNrzUZwNPRy rsZhdiSeDsVoJZUcXXHvkEsoApMhOOy5Z7VttiXy YCFyXMnpOARfFRxqFVPlIP22CIjkBM3sVJrfZX5p HXJuUSQpJ2WyV3R2UHCpBoN3TV4gnxAnLSQwWkAn lAzgl7LdHLKkxtYcSXR6mXjloWAwojRpy2SnrPw3 qAExJZofTHZbiE8uhY9gOAPxfLtaKIGaGPs3YjTf SydhLYExVOqzyQNmFV1JRJBsFfAdNHAtU5iaGMKo TN1XBQRgCKhebvStLXhryFN6pbZWHG4amg2QKJBp kELHYGH9RI5jJJygYNZbZ0NgX9DfxqT5j7drlZsw o6XmbHDpUN1jzUBgBJ8ZZBYtgsYuROz9 SPECIAL STUDIES (test code = 3376) p8cocBGkQLJlz1vrMPVetNYgQvFwHuRa ZnRuYmpc vRJaNChsbzFjWVfjc2VpF2ZyXeCjZMtznmYkQFSi TihnmbldXKJdSEM0gmDxLXHpRZeuGZQeLHayXv4z cHTeaTcmQwEuUONli4qbnmJAdiymhJp3v7xcKMGh BgN3dYLqNQflE1icpcXwkVNrF7EudCUfjRo8p3oo AwFlUgF5vIEoBHzfP0wzmbIadSEhFABbCPo3mF93 ISKdmK5acNHwDAkeuxHoSuL2KZnwJGPjFsO3JLVc oZCiYHGpO7toSUDuGAldEIBkEEbioHXsBYP7pExn x7X2iNVpaWTljUjwQzRkClYhZpXYq6UnHCn7mQbc W1KeGEYuOxF4fKGdKOTeXTonGWHoZENitlP6zFex erSco96hoEVzFZYlUONlToGyhGkaUKUuKUKXt6Rn zSqgBTI5dAc6vLtjDxpgEWK6Zsn2AK5juw62nxu3 rNkaJHOolqkpGsY4QUphGSJvgjdfAQo5BGhxFRRl dXG6KJTsdKDjZ5CiJCIsAA1vspw2HAM2QPdjKTNi LcG4MSVpmRUkBVTkqXelXJdsg258TCH9JlLqQS2j P8Voe1X8jX5diQHwCNMtrPTuUkYwVTKnok2lhNMl LEued0KaVQZ6wcY2lIBpwVFtQOFmQX53Ulrls3Pw Vqoim3YxH81nhUS3OGuhp8vhOV9hRcC0bgMhPPel t6pxdP9gFfI5BApiGM7eOF1vSSGgrY9okhloJVHw AfAcrwhcDWYjsWqzjcWfPa0ceKxdWYH7QWyxD3zq iG5nErJ0QWgsA9bdkG0yVZc8TZnjcEY1FZYjcT4w RF6nzngya5smLWhlJPvhCZOvimC0hjE1DMNygTHq J3QmyF3lIHYfHG7kimqcg2fmEEW0NOhlRTUaPRY3 DpViONCno1Jclns1EoVar7LwdFJrNEhjD96br705 CUVzbwYhP0arwJOnswcypKPjwimxSLaonfW3CWZb XHBsYWluXGYxXGZzMjJcbGFuZzEwMzNcaGljaFxm XSfdKoHkLBLdNNkcL0lzGkMmH6CuNWOgSdMnUSal XNijxTNrpMQclKB5cT6dJX2rGFFgnHBpO8NaAZWk ysTntQVvMLS5zSQwnJMoSS3zHVryxTIaa2stl8Fq U8qmzEqwjXB6ZH8jHKScVLTfXLemq2JwyT2nAsbn wVVotkvhGHstecEdXPkenfzeFTExNCcnD7jkJcMa RHSabDznNDmts5OaAHGhHXJdXxsrslTbATv4huNs JZZmooxjSXYhbDzbeW5zZeTcLdFfQwclRW8uRJYk A1obuTLjEMQdAAJyT1paFkYtoH7cfSmfLNqaKgOx SrLlCnHJx783od8wOYNklWXjbfDTuMZdoA2tKFfl OAeuXJzxiLUgECjww5quQQYwo5b8vDBnIEMvnaFx w3npMNcnsbXtGVBnnOLolLMkPABur66uSHkfpTgl jItiULOog5AicFrkf2LiTwVtNLqsj3RuK08ysDGf vIVorQdbHYBygcGwHQRue66fw9lzQKNwDlI2yMRm jIE3mCFeeOEvd0QlzRjrXPEpd5iuDXIgkv6awnof aYLbv8NdxH8kdptwKLeceBRendApHLQrf3r2nTUn YOVcJJAgRHzpyPq0BAKuq996kx7mmtN2tWAuMMM3 YWlsYWJsZSBhcmUgZXZhbHVhdGVkXHBsYWluXGYx XGZzMjJcbGFuZzEwMzNcaGljaFxmMVxkYmNoXGYx GImpG6nrGwJwN9SjZCUvAiNtmDAvM9yyvGZrOZYo YWluXGYxXGZzMjJcbGFuZzEwMzNcaGljaFxmMVxk BhJyPIKeKZdsB8bnAgXeS2YyJUJhQmJbDGedhXBm cfeqXSmzqlOxLItuclneZLHgWTgrT3rmLkHoKJXm vFwaDXxde4DvWCDuVXEuItdsdlEdQRx7vtVwJRCw xvdvgMIcspgnKNmkwwPdJPgbbdmuEOIrOMveI2po [file] PtmqCHA2lO== [facility] [id number] 09:45:56Surgical Pathology Report Case: [id number] Authorizing Provider: Konstantin Morataya, Collected: 12/02/2022 02:22 PM Ordering Location: [address] Received: 12/03/2022 12:07 PM Service Pathologist: Ivonne Guerrero MD Specimen: Pancreas, Head, Head of Pancreas Mass BX via FNB A. PANCREATIC HEAD MASS, US-GUIDED NEEDLE CORE BIOPSY:-Suspicious for adenocarcinoma, see comm ent Signing Pathologist Direct Phone Line: [phone] signed by Ivonne Guerrero MD on 12/08/2022 at 9:45 AMThe pancreatic biopsy shows predominantly fragments of benign pancreatic parenchyma with dense stromal fibrosis and chronic inflammatory infiltrate. Very few atypical glands are seen embedded in the fibrous stroma and occasional single atypical cells.The findings are concerning for an infiltrating ductal adenocarcinoma, however a definitive diagnosis cannot be made on this sample.CK7 was attempted, however tissue was lost on processing, therefore noncontributory. The biopsy is inadequate for ancillary studies.[id number] massA. Pancreas, HeadReceived in form krishna labeled with the patient's name, medical record number and "pancreas head" is a 1.5 x 1.0 x 0.2cm aggregate of eli-red soft tissue cores, which are submitted in toto in A1-A2.Katia CanoThe interpretation of this case included the use of immunohistochemistry or special stains.Control Slides Examined: In- house known positive controls were evaluated along with the test tissue. These control slides run alongside of the patients sample show appropriate staining. Internal positive and negative controls when available are evaluated Immunohistochemistry technical testing was performed at [facility]ology [facility] where it was developed and its performance characteristics were determined. It has not been cleared or approved by the U.S. Food and Drug Administration. TheFDA has determined that such clearance or approval is not necessary. The test is used for clinical purposes. It should not be regarded as investigational or for research. This laboratory is certified un lorene the Clinical Laboratory Improvement Amendments of 1988 (CLIA-88) as qualified to perform high complexity clinical laboratory testing.MR ABDOMEN WITH & WITHOUT IV [id number] 15:39:31 [facility] 1935 Sex: MMRI ofthe abdomen with and without contrastClinical History: Unlisted Reason for Examconcern for pancreatic mass on CT mid to distal body of pancreasTechnique: Multiplanar and multisequence MR images of the abdomen areobtained before and after intravenous contrast administration. Contrastis administered to evaluate neoplasm and vasculature. Comparison: MRCP dated May 29iscussion:There are trace bi lateral pleural effusions.Liver has a mildly lobulated contour, correlate clinically forcirrhosis. Parenchymal signal is normal. No liver mass is identified.Hepatic vasculature is patent. The main portal vein measures 12 mm indiameter.There is pneumobilia. A CBD stent has been placed. No significant du ctaldilatation..There is enlargement of the pancreatic main duct, most pronounced in thepancreatic body, measuring up to 12 mm in diameter; in the pancreatichead, the main duct measures approximately 5mm, previously 2 mm.Multiple small cystic foci in the body and tail probably representdilated side branches. No discrete pancreatic mass is identified.Splenic artery and vein are normally patent.Spleenis not enlarged. Adrenal glands are normal.No hydronephrosis. There are a few cysts in the kidneys, the largestarises exophytically from the left lower pole, measuring 3.7 cm. A fewsmall cysts in the right kidney are T1 hyperintense, likely reflectingthe presence of hemorrhagic, or proteinaceous contents. No suspiciousrenal mass.No lymphadenopathy. No ascites. No suspicious bony lesion is identified.Visualized bowel is unremarkable.IMPRESSION:Impression:There is irregular enlargement of the main pancreatic duct, mostpronounced in the pancreatic body. Multiple small cystic foci in thebody and tail probably represent dilated side branches. Findings aresuggestive of main and sidebranch IPMN (intraductal papillary mucinousneoplasm), but could also reflect sequela of chronic pancreatitis;correlation with patient's history is needed. No discrete mass lesion isidentified.Mildly lobular contour of liver, correlate clinically for cirrhosis orchronic liver disease. No liver mass.There is a CBD stent. Pneu mobilia. No significant ductal dilatation.Electronically Signed By: Ellie Sanchez12/07/2022 15:42 CDTWorkstation Name: [id number] CHEST WITHOUT IV CONTRAST 2022-12-04 18:08:35 [facility] : 1935 Sex: MCT CHEST WITHOUT IV CONTRASTINDICATION: Gastrointestinal cancer, stagingCOMPARISON: NoneTECHNIQUE: CT CHESTWITHOUT IV CONTRAST. This exam was performedaccording to our departmental dose optimization program which includesautomated exposure control, adjustment of the mA and/or kV according topatient size and/or use of iterative reconstruction technique.FINDINGS: Lack of intravenous contrast compromises evaluation of perfusion and forisodense lesions.Lines/tubes: Left chest wall cardiac device is seen with leads in rightatrium and right ventricle.Lungs: Trace bibasilar dependent atelectasis. Otherwise clear. Nosuspicious pulmonary nodules. Central airways: Patent.Pleura: No pleural effusion or pneumothorax .Lymph nodes: Suboptimal evaluation of the hilar lymph nodes without IVcontrast. Otherwise unremarkableCardiovascular: Severe coronary artery calcifications.Thyroid gland: Visualized portion unremarkableIncluded upper abdomen: Please refer to dedicated MRI abdomen performedsame day for complete details. Common bile duct stent is seen. Gas inthe gallbladder. Small hiatal hernia.Chest wall: Unremarkable.Bones: Mild degenerative changes of the visible spine.IMPRESSION:Lack of intravenous contrast compromises evaluation of perfusion and forisodense lesions.1. No evidence of metastatic disease in the chest.2. Trace bibasilar atelectasis.3. Please refer to dedicated MRI abdomen performed same day for upperabdominal findings.Electronically Signed By: Zonia Mccoy12/04/2022 18:10 CDTWorkstation Name: [id number] CHEST 2 VIEWS 2022-12-04 16:52:37 [facility] : 1935 Sex: MEXAMINATION: XR CHEST 2 VIEWS INDICATION: MRI screeningCOMPARISON: May 28, 2020 FINDINGS:LINES/TUBES: Support lines and tubes unchanged. LUNGS: The lungs are moderately inflated. No focal airspaceconsolidation.PLEURA: No pleural effusion or pneumothorax.MEDIASTINUM: The cardiomediastinal silhouette appears normal in size andshape.BONES/SOFT TISSUES: No acute osseous injury.ABDOMEN: No free air under thediaphragm.IMPRESSION:No acute cardiorespiratory disease.Electronically Signed By: Tyler Hollingsworth12/04/2022 16:54 CDTWorkstation Name: JOSE COMPREHENSIVE METABOLIC [id number] 04:44:45 Test Item Value Reference Range Interpretation Comments TOTAL PROTEIN 6.8 gm/dL 6.0-8.3 Specimen sligh tly (BEAKER) (test hemolyzed code = 770) ALBUMIN (BEAKER) 3.2 g/dL 3.5-5.0 L Specimen sl ightly (test code = 1145) hemolyzed ALKALINE 538 U/L 40-150 H PHOSPHATASE (BEAKER) (test code = 346) BILIRUBIN TOTAL 7.0 mg/dL 0.2-1.2 H Specimen sli ghtly (BEAKER) (test hemolyzed code = 377) SODIUM (BEAKER) 140 meq/L 136-145 (test code = 381) POTASSIUM (BEAKER) 4.0 meq/L 3.5-5.1 Specimen slightly (test code = 379) hemolyzed CHLORIDE (BEAKER) 105 meq/L 98-107 (test code = 382) CO2 (BEAKER) (test 26 meq/L 22-29 code = 355) BLOOD UREA 12 mg/dL 7-21 NITROGEN (BEAKER) (test code = 354) CREATININE 1.02 mg/dL 0.57-1.25 Specimen slight ly (BEAKER) (test hemolyzed code = 358) GLUCOSE RANDOM 116 mg/dL 70-105 H (BEAKER) (test code = 652) CALCIUM (BEAKER) 9.2 mg/dL 8.4-10.2 (test code = 697) AST (SGOT) 77 U/L 5-34 H Specimen slight ly (BEAKER) (test hemolyzed code = 353) ALT (SGPT) 74 U/L 6-55 H Specimen slight ly (BEAKER) (test hemolyzed code = 347) EGFR (BEAKER) 71 Interpretatio n of eGFR (test code = 1092) mL/min/1.[address] age Description sq m Result G1 Maribel l or high >=90 G2 Mildly decreased 60-89 G3a Mildl y to moderately 45-5 9 G3b Moderately to s everely 30-44 G4 Severl y decreased 15-29 G5 Kidney failure <15Reported eGF R is based on the CKD-EPI 2020 equation that d oes not use a race coefficientEsti mated GFR is not as accur ate as Creatinine Keren kyle in predicting glom erular filtration rate . Estimated GFR is not appl icable for dialysis patien ts Computer Operations Technician ID - MMSpecimen moderately ictericCOMPREHENSIVE METABOLIC PANEL 2022-12-03 14:00:00 Test Item Value Reference Range Interpretation Comments TOTAL PROTEIN 6.7 gm/dL 6.0-8.3 (BEAKER) (test code = 770) ALBUMIN (BEAKER) 3.4 g/dL 3.5-5.0 L (test code = 1145) ALKALINE 574 U/L 40-150 H PHOSPHATASE (BEAKER) (test code = 346) BILIRUBIN TOTAL 8.8 mg/dL 0.2-1.2 H (BEAKER) (test code = 377) SODIUM (BEAKER) 140 meq/L 136-145 (test code = 381) POTASSIUM (BEAKER) 3.5 meq/L 3.5-5.1 (test code = 379) CHLORIDE (BEAKER) 104 meq/L 98-107 (test code = 382) CO2 (BEAKER) (test 27 meq/L 22-29 code = 355) BLOOD UREA 14 mg/dL 7-21 NITROGEN (BEAKER) (test code = 354) CREATININE 1.17 mg/dL 0.57-1.25 (BEAKER) (test code = 358) GLUCOSE RANDOM 178 mg/dL 70-105 H (BEAKER) (test code = 652) CALCIUM (BEAKER) 9.3 mg/dL 8.4-10.2 (test code = 697) AST (SGOT) 83 U/L 5-34 H (BEAKER) (test code = 353) ALT (SGPT) 82 U/L 6-55 H (BEAKER) (test code = 347) EGFR (BEAKER) 60 Interpretatio n of eGFR (test code = 1092) mL/min/1.[address] age Description sq m Result G1 Maribel l or high >=90 G2 Mildly decreased 60-89 G3a Mildl y to moderately 45-5 9 G3b Moderately to s everely 30-44 G4 Severl y decreased 15-29 G5 Kidney failure <15Reported eGF R is based on the CKD-EPI 2020 equation that d oes not use a race coefficientEsti mated GFR is not as accur ate as Creatinine Keren wright in predicting glom erular filtration rate . Estimated GFR is not appl icable for dialysis patien ts Specimen moderately ictericCBC W/PLT COUNT & AUTO [id number] 13:28:44 Test Item Value Reference Range Interpretation Comments WHITE BLOOD CELL COUNT (BEAKER) 7.0 K/ L 3.5-10.5 (test code = 775) RED BLOOD CELL COUNT (BEAKER) 4.39 M/ L (test code = 761) HEMOGLOBIN (BEAKER) (test code = 13.3 GM/DL 13.7-17.5 L 410) HEMATOCRIT (BEAKER) (test code = 40.3 % 40.1-51.0 411) MEAN CORPUSCULAR VOLUME (BEAKER) 92 fL 79-92 (test code = 753) MEAN CORPUSCULAR HEMOGLOBIN 30.3 pg 25.7-32.2 (BEAKER) (test code = 751) MEAN CORPUSCULAR HEMOGLOBIN CONC 33.0 GM/DL 32.3-36.5 (BEAKER) (test code = 752) RED CELL DISTRIBUTION WIDTH 18.8 % 11.6-14.4 H (BEAKER) (test code = 412) PLATELET COUNT (BEAKER) (test 306 K/CU MM 150-450 code = 756) MEAN PLATELET VOLUME (BEAKER) 10.3 fL 9.4-12.4 (test code = 754) NUCLEATED RED BLOOD CELLS 0 /100 WBC 0-0 (BEAKER) (test code = 413) NEUTROPHILS RELATIVE PERCENT 74 % (BEAKER) (test code = 429) LYMPHOCYTES RELATIVE PERCENT 14 % (BEAKER) (test code = 430) MONOCYTES RELATIVE PERCENT 8 % (BEAKER) (test code = 431) EOSINOPHILS RELATIVE PERCENT 4 % (BEAKER) (test code = 432) BASOPHILS RELATIVE PERCENT 1 % (BEAKER) (test code = 437) NEUTROPHILS ABSOLUTE COUNT 5.14 K/ L 1.78-5.38 (BEAKER) (test code = 670) LYMPHOCYTES ABSOLUTE COUNT 0.94 K/ L 1.32-3.57 L (BEAKER) (test code = 414) MONOCYTES ABSOLUTE COUNT (BEAKER) 0.53 K/ L 0.30-0.82 (test code = 415) EOSINOPHILS ABSOLUTE COUNT 0.27 K/ L 0.04-0.54 (BEAKER) (test code = 416) BASOPHILS ABSOLUTE COUNT (BEAKER) 0.06 K/ L 0.01-0.08 (test code = 417) IMMATURE GRANULOCYTES-RELATIVE 0.30 % 0.00-1.00 PERCENT (BEAKER) (test code = 2801) BASIC METABOLIC [id number] 07:06:25 Test Item Value Reference Range Interpretation Comments SODIUM (BEAKER) 142 meq/L 136-145 (test code = 381) POTASSIUM 3.6 meq/L 3.5-5.1 (BEAKER) (test code = 379) CHLORIDE (BEAKER) 110 meq/L 98-107 H (test code = 382) CO2 (BEAKER) 22 meq/L 22-29 (test code = 355) BLOOD UREA 16 mg/dL 7-21 NITROGEN (BEAKER) (test code = 354) CREATININE 1.19 mg/dL 0.57-1.25 (BEAKER) (test code = 358) GLUCOSE RANDOM 111 mg/dL 70-105 H (BEAKER) (test code = 652) CALCIUM (BEAKER) 9.0 mg/dL 8.4-10.2 (test code = 697) EGFR (BEAKER) 59 Interpretatio n of eGFR (test code = mL/min/1.73 values Stage De scription 1092) sq m Result G1 Maribel l or high >=90 G2 Mildly decreased 60-89 G3a Mildl y to moderately 45-5 9 G3b Moderately to s everely 30-44 G4 Severl y decreased 15-29 G5 Kidney failure <15Reported eGF R is based on the CKD-EPI 2021 equation that d oes not use a race coefficientEsti mated GFR is not as accur ate as Creatinine Keren kyle in predicting glom erular filtration rate . Estimated GFR is not appl icable for dialysis patien ts Computer Operations Technician ID - KYLE WSpecimen moderately ictericHEPATIC FUNCTION [id number] 07:06:25 Test Item Value Reference Range Interpretation Comments TOTAL PROTEIN (BEAKER) (test code = 6.1 gm/dL 6.0-8.3 770) ALBUMIN (BEAKER) (test code = 1145) 3.0 g/dL 3.5-5.0 L BILIRUBIN TOTAL (BEAKER) (test code 8.2 mg/dL 0.2-1.2 H = 377) BILIRUBIN DIRECT (BEAKER) (test 6.5 mg/dL 0.1-0.5 H code = 706) ALKALINE PHOSPHATASE (BEAKER) (test 498 U/L 40-150 H code = 346) AST (SGOT) (BEAKER) (test code = 88 U/L 5-34 H 353) ALT (SGPT) (BEAKER) (test code = 79 U/L 6-55 H 347) Computer Operations Technician ID José Calix moderately ictericPROTHROMBIN [id number] 06:45:01 Test Item Value Reference Range Interpretation Comments PROTIME (BEAKER) (test code = 14.4 seconds 11.9-14.2 H 759) INR (BEAKER) (test code = 370) 1.19 <=5.90 RECOMMENDED COUMADIN/WARFARIN INR THERAPY RANGESSTANDARD DOSE: 2.0 - 3.0 Includes: PROPHYLAXIS for venous thrombosis, systemic embolization; TREATMENT for venous thrombosis and/or pulmonary embolus.HIGH RISK: Target INR is 2.5-3.5 for patients with mechanical heart valves.CBC (HEMOGRAM ONLY)2022-12-02 06:42:17 Test Item Value Reference Range Interpretation Comments WHITE BLOOD CELL COUNT (BEAKER) 6.7 K/ L 3.5-10.5 (test code = 775) RED BLOOD CELL COUNT (BEAKER) 3.97 M/ L (test code = 761) HEMOGLOBIN (BEAKER) (test code = 12.0 GM/DL 13.7-17.5 L 410) HEMATOCRIT (BEAKER) (test code = 36.3 % 40.1-51.0 L 411) MEAN CORPUSCULAR VOLUME (BEAKER) 91 fL 79-92 (test code = 753) MEAN CORPUSCULAR HEMOGLOBIN 30.2 pg 25.7-32.2 (BEAKER) (test code = 751) MEAN CORPUSCULAR HEMOGLOBIN CONC 33.1 GM/DL 32.3-36.5 (BEAKER) (test code = 752) RED CELL DISTRIBUTION WIDTH 18.5 % 11.6-14.4 H (BEAKER) (test code = 412) PLATELET COUNT (BEAKER) (test 265 K/CU MM 150-450 code = 756) MEAN PLATELET VOLUME (BEAKER) 10.5 fL 9.4-12.4 (test code = 754) NUCLEATED RED BLOOD CELLS 0 /100 WBC 0-0 (BEAKER) (test code = 413) BASIC METABOLIC [id number] 07:06:00 Test Item Value Reference Range Interpretation Comments SODIUM (BEAKER) 139 meq/L 136-145 (test code = 381) POTASSIUM (BEAKER) 3.9 meq/L 3.5-5.1 (test code = 379) CHLORIDE (BEAKER) 106 meq/L 98-107 (test code = 382) CO2 (BEAKER) (test 24 meq/L 22-29 code = 355) BLOOD UREA NITROGEN 10 mg/dL 7-21 (BEAKER) (test code = 354) CREATININE (BEAKER) 1.09 mg/dL 0.57-1.25 (test code = 358) GLUCOSE RANDOM 101 mg/dL 70-105 (BEAKER) (test code = 652) CALCIUM (BEAKER) 8.8 mg/dL 8.4-10.2 (test code = 697) EGFR (BEAKER) (test 64 mL/min/1.73 ESTIMA JAS GFR IS code = 1092) sq m NOT ACCURATE CREATININE CLEARANCE IN PREDICTING GLOMERULAR FILTRATION RATE . ESTIMATED GFR I S NOT APPLICABLE FOR DIALYSIS PATIEN TS. Computer Operations Technician ID - PINKY [id number] 07:06:00 Test Item Value Reference Range Interpretation Comments MAGNESIUM (BEAKER) (test code = 1.9 mg/dL 1.6-2.6 627) Computer Operations Technician ID - PINKY [id number] 07:06:00 Test Item Value Reference Range Interpretation Comments PHOSPHORUS (BEAKER) (test code = 3.0 mg/dL 2.3-4.7 604) Computer Operations Technician ID - PINKY MHEPATIC FUNCTION [id number] 07:06:00 Test Item Value Reference Range Interpretation [...] (test code = 49 U/L 6-55 347) Computer Operations Technician ID - PINKY MCBC (HEMOGRAM ONLY)2020-05-31 06:15:00 [...] WBC 0-0 (BEAKER) (test code = 413) [id number] 06:50:00 Test Item Value Reference Range Interpretation Comments MAGNESIUM (BEAKER) (test code = 2.0 mg/dL 1.6-2.6 627) Computer Operations Technician ID - [id number] 06:50:00 Test Item Value Reference Range Interpretation Comments PHOSPHORUS (BEAKER) (test code = 3.1 mg/dL 2.3-4.7 604) Computer Operations Technician ID - ADMINHEPATIC FUNCTION [id number] 06:50:00 Test Item Value Reference Range Interpretation [...] (test code = 54 U/L 6-55 347) Computer Operations Technician ID - ADMINBASIC METABOLIC [id number] 06:50:00 Test Item Value Reference Range Interpretation [...] S NOT APPLICABLE FOR DIALYSIS PATIEN TS. Computer Operations Technician ID - ADMINCBC (HEMOGRAM ONLY)2020-05-30 05:31:00 Test [...] (BEAKER) (test code = 413) MR, ABDOMEN, [id number] 20:04:00Unlisted Reason for Exam - Click Yes and Enter Reason Below->No [facility] 1935 Sex: MFINAL REPORT TECHNIQUE: MRI [...] cyst with hem orrhagic/proteinaceous fluid. Signed: Thang Marrero MDReport Verified Date/Time: 120:04:18 Reading Location: [facility] B1 C013Y CT Body Reading Room [id number] 06:13:00 Test Item Value Reference Range Interpretation Comments MAGNESIUM (BEAKER) 1.9 mg/dL 1.6-2.6 Specimen slightly (test code = 627) hemolyzed Computer Operations Technician ID - KYLE [id number] 06:13:00 Test Item Value Reference Range Interpretation Comments PHOSPHORUS (BEAKER) 2.9 mg/dL 2.3-4.7 Specimen slightly (test code = 604) hemolyzed Computer Operations Technician ID José WRIGHT WBASIC METABOLIC [id number] 06:13:00 Test Item Value Reference Range Interpretation [...] S NOT APPLICABLE FOR DIALYSIS PATIEN TS. Computer Operations Technician ID José WRIGHT WHEPATIC FUNCTION [id number] 06:13:00 Test Item Value Reference Range Interpretation [...] Specimen slightly (test code = 347) hemolyzed Computer Operations Technician ID - KYLE WCBC (HEMOGRAM ONLY)2020-05-29 05:07:00 [...] WBC 0-0 (BEAKER) (test code = 413) [id number] 20:18:00 Test Item Value Reference Range Interpretation Comments LIPASE (BEAKER) (test code = 749) 36 U/L 8-78 Computer Operations Technician ID - BSHEPATOBILIARY IMAGING W/ [id number] 17:32:00Unlisted Reason for Exam - Click Yes and Enter Reason Below->NoReason for exam:->chronic cholecystitis vs [facility]edocholithiasis [facility] : 1935 Sex: MFINAL REPORT PROCEDURE: HEPATOBILIARY SCAN with [facility] CPT CODE: 15423 INDICATION: Cholecystitis PROTOCOL: 4.9 mCi of Tc-99m [...] MDReport Verified Date/Time: 05/28/2020 17:32:27 Reading Location: [place] [id number] Reading Room RAD, CHEST, 1 VIEW, NON [id number] 14:38:00Reason for exam:->for MRCP clearance, Pt. have a PacemakerShould this be performed at the bedside?->Yes [facility] : 1935 Sex: MFINAL REPORT INDICATION: for MRCP clearance, Pt. have a Pacemaker COMPARISON: None TECHNIQUE: Single frontal view of the chest. FINDINGS: Lungs and pleura: Clear lungs. No effusion.Heart and mediastinum: Normal heart size. Unremarkable mediastinal contours.Osseous structures: No acute abn ormality.Other: None. IMPRESSION: No acute intrathoracic abnormality. Signed: JR Verduzco Robert MDReport Verified Date/Time: 05/28/2020 14:38:54 Reading Location: [facility] Radiology ReadingRoom [id number] 06:27:00 Test Item Value Reference Range Interpretation Comments MAGNESIUM (BEAKER) 1.9 mg/dL 1.6-2.6 Specimen moderately (test code = 627) hemolyzed Computer Operations Technician ID - PIAYA [id number] 06:27:00 Test Item Value Reference Range Interpretation Comments PHOSPHORUS (BEAKER) 2.6 mg/dL 2.3-4.7 Specimen moderately (test code = 604) hemolyzed Computer Operations Technician ID - PIAYA LBASIC METABOLIC [id number] 06:27:00 Test Item Value Reference Range Interpretation [...] S NOT APPLICABLE FOR DIALYSIS PATIEN TS. Computer Operations Technician ID - PIAYA LHEPATIC FUNCTION [id number] 06:27:00 Test Item Value Reference Range Interpretation [...] Specimen moderately (test code = 347) hemolyzed Computer Operations Technician ID - PIAYA LCBC (HEMOGRAM ONLY)2020-05-28 05:09:00 [...] code = 413) URINALYSIS W/ REFLEX URINE [id number] 17:16:00 Test Item Value Reference Range Interpretation [...] = 1574) Rare SOURCE(BEAKER) (test code = 0071) Computer Operations Technician ID - [auto]Computer Operations Technician ID - techCOMPREHENSIVE METABOLIC [id number] 14:32:00 Test Item Value Reference Range Interpretation [...] S NOT APPLICABLE FOR DIALYSIS PATIEN TS. Computer Operations Technician ID - MAY CCBC W/PLT COUNT & AUTO [id number] 13:52:00 Test Item Value Reference Range Interpretation [...] PERCENT (BEAKER) (test code = 2801) SARS-COV2/RT-PCR ([facility])2020-05-27 11:57:00 Test Item Value Reference Range Interpretation Comments SARS-COV2/RT-PCR (test Negative Not Detected, Negative, code = 5136945) See external report for linked test SARS-COV-2 PERFORMING LAB [facility] (test code = 0041895) Negative result for this test determines that [...] of the Act.Fact Sheet for Healthcare Prov iders:https://www.[employer]/sites/default/files/product/documents/Fact_Sheet_HC _Qmpxfteez_Kuom_NAUD-DxK-9.pdfFact Sheet for Healthcare Patients:https://www.[employer]/sites/default/files/product/docume nts/Scjl_Fdkuu_Jnnpzecs_Vlvu_BECA-TyC-4.pdfPerforming Laboratory:[facility], [place] [address]T/S, ABDOMINAL, LIMITED 2020-05-27 11:53:00Abdomen limited area? Add comment if clarification is needed.->Right upper quadrantReason for exam:->Assess for cholecystitis or choledocholithiasis [facility] : 1935 Sex: MFINAL REPORT TECHNIQUE: Grayscale [...] was not well visualized. Signed: Bentley Alfaro [facility] Verified Date/Time: 05/27/2020 11:53:24 Reading Location: [facility] C013Y CT Body Reading Room ONIN [id number] 23:43:00 Test Item Value Reference Range Interpretation Comments TROPONIN I (NIMAAKER) (test code = 0.25 ng/mL 0.00-0.03 [facility]) Troponin I (TnI) levels must be interpreted [...] failure, acidosis, acute neurological disease, and persistent tachyarrhythmia.Computer Operations Technician ID - DBTROPONIN [id number] 17:25:00 Test Item Value Reference Range Interpretation Comments TROPONIN I (BEAKER) (test code = 0.29 ng/mL 0.00-0.03 [facility]) Troponin I (TnI) levels must be interpreted [...] failure, acidosis, acute neurological disease, and persistent tachyarrhythmia.Computer Operations Technician ID - DBCOMPREHENSIVE METABOLIC [id number] 14:52:00 Test Item Value Reference Range Interpretation [...] S NOT APPLICABLE FOR DIALYSIS PATIEN TS. Computer Operations Technician ID - MAY CSpecimen slightly ictericPROTHROMBIN [id number] 14:38:00 Test Item Value Reference Range Interpretation [...] mechanical heart valves.CBC W/PLT COUNT & AUTO [id number] 14:31:00 Test Item Value Reference Range Interpretation [...] % 0-1 PERCENT (BEAKER) (test code = 8143)
--- NOTE | 2022-12-20 18:03 | RAD REPORT ---
EXAM DESCRIPTION: US - Extrem Venous W Compress Kieran - 12/20/2022 5:51 pm CLINICAL HISTORY: SWELLING Bilateral leg edema and swelling. COMPARISON: Extremity Venous Uni Ltd dated 05/15/2022 TECHNIQUE: Real-time sonographic interrogation of the left and right lower extremity deep venous sys tems was performed. FINDINGS: Normal compressibility, flow augmentation, phasic flow and spontaneous flow is identified in both the left and right lower extremity deep venous systems. IMPRESSION: No sonographic evidence of left or right lower extremity deep venous thrombosis.
--- NOTE | 2022-12-20 18:07 | RAD REPORT ---
EXAM DESCRIPTION: RAD - Chest Single View - 12/20/2022 6:01 pm CLINICAL HISTORY: SWELLING Chest pain. COMPARISON: Chest Single View dated 12/01/2022; Chest Single View dated 05/26/2020; Chest Single View d ated 05/15/2020; Chest Single View dated 05/13/2020 FINDINGS: Portable technique limits examination quality. The lungs are grossly clear. The heart is normal in size. No displaced fractures.Dual lead pacer lucas ce. IMPRESSION: No acute intrathoracic process suspected.
[2022-12-20 18:19] LABS: Absolute Lymphocytes (CBC) 1.7 K/uL (0.7-4.9); Hematocrit 37.6 % (39.6-49.0); Lymphocytes % 21.5 % (15.3-44.8); MCV 93.7 fL (80-100); MPV 7.7 fL (7.6-11.3); RBC Red Blood Cell Count 4.02 M/uL (4.33-5.43)
[2022-12-20 18:47] LABS: Magnesium 1.7 mg/dL (1.6-2.4); Potassium 3.3 mEq/L (3.5-5.1)
--- NOTE | 2022-12-20 20:20 | ER ---
Nurse's Notes [facility] Name: Leanna Judge Age: 87 yrs Sex: Male : 1935 Arrival Date: 12/20/2022 Time: 16:35 Bed 19 Private MD: Diagnosis: Cellulitis of right lower limb;Cellulitis of left lower limb Presentation: 12/20 16:58 Chief complaint: Patient states: B leg redness, swelling for 3-4 days. States he ll1 usually gets antibiotics for it, sent in by Home health nurse. No fever. Coronavirus screen: Vaccine status: Patient reports receiving the 2nd dose of the covid vaccine. Client denies travel out of the [place] in the last 14 days. At this time, the client does not indicate any symptoms associated with coronavirus-19. Ebola Screen: Patient denies travel to an Ebola-affected area in the 21 days before illness onset. Initial Sepsis Screen: Does the patient meet any 2 criteria? No. Patient's initial sepsis screen is negative. Does the patient have a suspected source of infection? Yes: Skin breakdown/wound. Risk Assessment: Do you want to hurt yourself or someone else? Patient reports no desire to harm self or others. Onset of symptoms was December 16, 2022. 16:58 Method Of Arrival: Ambulatory ll1 16:58 Acuity: GRACIE 3 ll1 Triage Assessment: 16:58 General: Appears in no apparent distress. Behavior is calm, cooperative, appropriate ll1 for age. Pain: Complains of pain in right leg and left leg Quality of pain is described as aching. Derm: Reports redness to both legs. Historical: - Allergies: 16:57 No Known Allergies; ll1 - PMHx: 16:57 Hyperlipidemia; Gout; Myocardial infarction; ll1 - PSHx: 17:02 pancrease/gallbladder stents; ll1 - Immunization history:: Adult Immunizations up to date, Client reports receiving the 2nd dose of the Covid vaccine. - Social history:: Smoking status: Patient denies any tobacco usage or history of. Screenin:35 [facility] ED Fall Risk Assessment (Adult) History of falling in the last 3 months, ph including since admission No falls in past 3 months (0 pts) Confusion or Disorientation No (0 pts) Intoxicated or Sedated No (0 pts) Impaired Gait Yes (1 pt) Mobility Assist Device Used Yes (1 pt) Altered Elimination No (0 pt) Score/Fall Risk Level 0 - 2 = Low Risk Oriented to surroundings, Maintained a safe environment, Hourly rounding (assess needs \T\ fall precautionary measures) done, Used ambulatory aids as needed (educated on \T\ assisted with). Abuse screen: Denies threats or abuse. Denies injuries from another. Nutritional screening: No deficits noted. Tuberculosis screening: No symptoms or risk factors identified. Assessment: 17:46 Reassessment: No changes from previously documented assessment. Patient and/or family ll1 updated on plan of care and expected duration. Pain level reassessed. Patient is alert, oriented x 3, equal unlabored respirations, skin warm/dry/pink. 18:58 Reassessment: Patient appears in no apparent distress at this time. Patient and/or hb family updated on plan of care and expected duration. Pain level reassessed. Patient is alert, oriented x 3, equal unlabored respirations, skin warm/dry/pink. Vital Signs: 16:58 BP 137 / 69; Pulse 63; Resp 18; Temp 97.8; Pulse Ox 97% ; Height 5 ft. 9 in. ; Pain ll1 6/10; 18:36 BP 153 / 73; Pulse 58; Resp 18; Pulse Ox 99% on R/A; ph 16:58 Pain Scale: Adult ll1 ED Course: 16:56 Patient arrived in ED. ts1 16:58 Arm band placed on. ll1 17:02 Triage completed. ll1 17:03 Nik Hampton PA is PHCP. cp 17:04 Lam Merida DO is Attending Physician. cp 17:46 Patient placed in an exam room, on a stretcher. ll1 17:53 US Extremity Venous W Compression Kieran In Process Unspecified. EDMS 17:54 Kelly Reid, RN is Primary Nurse. ph 18:03 XRAY Chest (1 view) In Process Unspecified. EDMS 18:14 Inserted saline lock: 22 gauge in right antecubital area, using aseptic technique. zm Blood collected. 18:14 Initial lab(s) drawn, by me, sent to lab. zm 18:35 Patient has correct armband on for positive identification. Bed in low position. Call ph light in reach. Side rails up X 1. Pulse ox on. NIBP on. Administered Medications: No medications were administered Medication: 18:35 VIS not applicable for this client. ph Outcome: 20:20 Discharge ordered by . adán 20:38 Patient left the ED. vc1 Signatures: Dispatcher [employer] EDKelly Mejia RN RN Nik Rojas PA PA cp Baxter, Heather, RN RN hb Lewis, Lynsay, RN RN 1 Shruti Olvera RN RN 1 Deepa Shrestha Tanya, PAS PAS ts1
--- NOTE | 2022-12-20 20:21 | EDPHYS ---
Physician Documentation [facility] Name: Leanna Judge Age: 87 yrs Sex: Male : 1935 Arrival Date: 12/20/2022 Time: 16:35 Bed 19 Private MD: ED Physician Lam Merida HPI: 12/20 17:15 This 87 yrs old Male presents to ER via Ambulatory with complaints of Leg Swelling. cp Historical: - Allergies: 16:57 No Known Allergies; ll1 - PMHx: 16:57 Hyperlipidemia; Gout; Myocardial infarction; ll1 - PSHx: 17:02 pancrease/gallbladder stents; ll1 - Immunization history:: Adult Immunizations up to date, Client reports receiving the 2nd dose of the Covid vaccine. - Social history:: Smoking status: Patient denies any tobacco usage or history of. ROS: 17:20 Constitutional: Negative for body aches, chills, fever, poor PO intake. cp 17:20 Cardiovascular: Positive for edema, Negative for chest pain, palpitations. cp 17:20 Eyes: Negative for injury, pain, redness, and discharge. cp 17:20 ENT: Negative for drainage from ear(s), ear pain, sore throat, difficulty swallowing, difficulty handling secretions. 17:20 Respiratory: Negative for cough, shortness of breath, wheezing. 17:20 Abdomen/GI: Negative for abdominal pain, nausea, vomiting, and diarrhea, black/tarry stool, rectal bleeding. 17:20 : Negative for urinary symptoms. 17:20 Skin: Positive for erythema, of the left lower leg and right lower leg. 17:20 Neuro: Negative for altered mental status, dizziness, headache, syncope, weakness. 17:20 All other systems are negative. Exam: 17:25 Constitutional: The patient appears in no acute distress, alert, awake, cp non-diaphoretic, non-toxic, well developed, well nourished. 17:25 Head/Face: Normocephalic, atraumatic. cp 17:25 Eyes: Periorbital structures: appear normal, Conjunctiva: normal, no exudate, no injection, Sclera: no appreciated abnormality, Lids and lashes: appear normal, bilaterally. 17:25 ENT: External ear(s): are unremarkable, Nose: is normal, Mouth: Lips: moist, Oral mucosa: pink and intact, moist, Posterior pharynx: is normal, airway is patent, no erythema, no exudate. 17:25 Neck: ROM/movement: is normal, is supple, without pain, no range of motions limitations. 17:25 Chest/axilla: Inspection: normal. 17:25 Cardiovascular: Rate: normal, Edema: ankle edema, that is mild, JVD: is not appreciated. 17:25 Respiratory: the patient does not display signs of respiratory distress, Respirations: normal, no use of accessory muscles, no retractions, labored breathing, is not present, Breath sounds: are clear throughout, no decreased breath sounds, no stridor, no wheezing. 17:25 Abdomen/GI: Inspection: abdomen appears normal, Palpation: abdomen is soft and non-tender, in all quadrants. 17:25 Back: CVA tenderness, is absent. 17:25 Skin: cellulitis, that is moderate, well demarcated, on the right lower leg and left lower leg. 17:25 Neuro: Orientation: to person, place \T\ time. Mentation: is normal, Motor: moves all fours, strength is normal. Vital Signs: 16:58 BP 137 / 69; Pulse 63; Resp 18; Temp 97.8; Pulse Ox 97% ; Height 5 ft. 9 in. ; Pain ll1 6/10; 18:36 BP 153 / 73; Pulse 58; Resp 18; Pulse Ox 99% on R/A; ph 16:58 Pain Scale: Adult ll1 MDM: 17:08 Patient medically screened. cp 20:20 Data reviewed: vital signs, nurses notes, lab test result(s), EKG, radiologic studies, cp plain films, ultrasound. 20:20 Consideration of Admission/Observation Escalation of care including cp admission/observation considered. I considered the following discharge prescriptions or medication management in the emergency department Medications were administered in the Emergency Department. See MAR. 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 Response to treatment: the patient's symptoms have mildly improved after treatment, and as a result, I will discharge patient. ED course: VSS. Patient appears non-toxic and no signs of respiratory distress. Will discharge to home for continued monitoring with RX for oral antibiotics. 12/20 17:08 Order name: Basic Metabolic Panel; Complete Time: 19:15 12/20 19:15 Interpretation: Normal except: K 3.3; BUN 20; CRE 1.46; GFR 46. 12/20 17:08 Order name: CBC with Diff; Complete Time: 18:46 12/20 18:46 Interpretation: Normal except: RBC 4.02; HGB 12.6; HCT 37.6; RDW 17.3; EOSINOPHIL % 6.8. 12/20 17:08 Order name: Magnesium; Complete Time: 19:15 12/20 17:08 Order name: NT PRO-BNP; Complete Time: 19:15 12/20 19:15 Interpretation: Abnormal: NT PRO-BNP 800. 12/20 17:08 Order name: Troponin HS; Complete Time: 19:15 12/20 17:08 Order name: XRAY Chest (1 view); Complete Time: 18:46 12/20 17:08 Order name: US Extremity Venous W Compression Kieran; Complete Time: 18:46 12/20 17:08 Order name: Cardiac monitoring; Complete Time: 20:13 12/20 17:08 Order name: EKG - Nurse/Tech 12/20 17:08 Order name: IV Saline Lock; Complete Time: 18:17 12/20 17:08 Order name: Labs collected and sent; Complete Time: 18:17 12/20 17:08 Order name: O2 Per Protocol; Complete Time: 18:04 12/20 17:08 Order name: O2 Sat Monitoring; Complete Time: 18:04 cp Administered Medications: No medications were administered Disposition: 12/21 16:21 Co-signature as Attending Physician, Lam Merida DO I was immediately available on-site ms3 in the Emergency Department for consultation in the care of the patient. Disposition Summary: 12/20/22 20:20 Discharge Ordered Location: Home cp Problem: new cp Symptoms: have improved cp Condition: Stable cp Diagnosis - Cellulitis of right lower limb cp - Cellulitis of left lower limb cp Followup: cp - With: Private Physician - When: 2 - 3 days - Reason: Recheck today's complaints Discharge Instructions: - Discharge Summary Sheet cp - Cellulitis, Adult cp Forms: - Medication Reconciliation Form cp - Thank You Letter cp - Antibiotic Education cp - Prescription Opioid Use cp - Patient Portal Instructions cp Prescriptions: - Doxycycline Hyclate 100 mg Oral Tablet - take 1 tablet by ORAL route every 12 hours; 20 tablet; Refills: 0, Product cp Selection Permitted Signatures: Dispatcher [employer] EDMS Nik Hampton PA PA cp Lewis, Lynsay, RN RN ll1 Lam Merida DO DO ms3
[2022-12-20 21:20] VITALS: TEMP 97.8
[2022-12-20 21:22] VITALS: BP 153/73; O2SAT 99
== END 2022-12-20 20:38 | disposition home or self-care (01) ==
LOC: ER 16:35
DX: L03.116 Cellulitis of left lower limb (principal); L03.115 Cellulitis of right lower limb
CPT/HCPCS: 36415; 71045; 80048; 83735; 83880; 84484; 85025; 93970; 99283

== ENCOUNTER 2023-02-22 14:08 | Inpatient (IN) | payer OTHER, BC ==
--- OUTSIDE RECORDS SUMMARY | 2023-02-22 14:16 | XMS REPORT | Continuity of Care Document ---
:1935 Author Organization [facility] Address [address] [facility] [address] [place] [id number] Care Team Providers Name Role Phone Asked, No Pcp Primary Care Physician Unavailable JOSE LUIS REIS Attending Clinician Unavailable GINA NAPOLES Attending Clinician Unavailable ERIKA HINOJOSA Attending Clinician Unavailable MERT MILLER Attending Clinician Unavailable PRINCESS GARSIA Attending Clinician Unavailable PRINCESS RICH Attending Clinician Unavailable Princess Garsia MD Attending Clinician Mert Miller MD Attending Clinician Roxie Almaguer RN Attending Clinician Unavailable SCOTT BLOOD Attending Clinician Unavailable JACKIE PAK Attending Clinician Unavailable Rosalba Chau Attending Clinician Unavailable Konstantin Morataya MD Attending Clinician [phone] Cyndee Patel Attending Clinician KONSTANTIN MORATAYA Attending Clinician Unavailable GINA BOSWELL Attending Clinician Unavailable ELLEN MELO Admitting Clinician Unavailable ERIKA HINOJOSA Admitting Clinician Unavailable MERT MILLER Admitting Clinician Unavailable JACKIE PAK Admitting Clinician Unavailable HORACIO LUGO Admitting Clinician Unavailable GINA BOSWELL Admitting Clinician Unavailable Payers Payer Name Policy Type Policy Number Effective Date Expiration Date Heather turner MEDICARE A B [id number] 1998 00:00:00 BCBS FED [id number] 2019 00:00:00 Problems Condition Condition Condition Status Onset Resolution Last Treating Co mments Source Name Details Category Date Date Treatment Clinician Date 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 disease 00:[facility]: Medical 00 [facility] Hypertensi Hypertensi Disease Active [facility] 00:[facility]: Medical 00 [facility] Pancreatit Pancreatit Disease Active [facility] is 8-16 [facility] 00:00: Medical 00 [facility] Pancreatic Pancreatic Disease Active [facility] mass mass 7-10 [facility] 00:[facility]: Medical 00 [facility] Acute Acute Disease Active [facility] cholecysti cholecysti 103 Nany kes tis due to tis due to 00:00: Me dical biliary biliary 00 Center calculus calculus Cardiac Cardiac Disease Active [facility] arrhythmia arrhythmia 05-31 st 00:00: Hospita 00 l [place] 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 l 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 Social History Social Habit Start Date Stop Date Quantity Comments Source History [facility] SD[facility] History of tobacco Cigarette Smoker [facility] use Medical Center History SDOH [facility] Transport [facility] Sexual orientation [facility] Exposure to 2022-11-21 2022-12-01 Not sure [facility] SARS-CoV-2 (event) 00:00:00 19:23:00 Medica l Center History [facility] 2022-12-01 2022-12-[address] [facility] Transport Med 00:00:00 00:00:[address] [facility] 2022-12-01 2022-12-[address] [facility] Housing Unable to 00:00:00 00:00:00 Medical Center Pay History [facility] 2022-12-01 2022-12-[address] [facility] Housing Places 00:00:00 00:00:00 Medical Ce nter Lived History [facility] 2022-12-01 2022-12-[address] [facility] Housing Homeless 00:00:00 00:00:00 Medical Center Last Year Alcohol intake 2019-06-03 2019-06-03 Lifetime [facility] 00:[facility]:00 non-drinker Hospital (finding) History of Social 2019-06-01 2019-06-[address] function 00:00:00 00:00:00 Hospital History [facility] 2019-05-31 2019-05-31 1 [facility] Frequency 00:00:00 00:00:00 Hospita l Sex Assigned At [birth year] [facility] 00[facility] Smoking Status Start Date Stop Date Source Ex-smoker 2023-01-07 00:00:00 2023-01-07 00:00:00 [facility] Never smoked tobacco [facility] Medications Ordered Filled Start Stop Current Ordering Indication Dosage Frequency Signature Comments Components Source Medication Medication Date Date Medication? Clinician (SIG) Name Name metoprolol Yes 25mg QD Take 1 [facility] succinate 8-16 tablet (25 [facility] (TOPROL-XL) 13:09: mg total) M edical 25 MG 24 hr 35 by mouth Cent er tablet daily. valsartan Yes 320mg QD Take 1 [facility] (DIOVAN) 8-16 tablet [facility] 320 MG 13:09: (320 mg Medical tablet 35 total) by Center mouth daily. escitalopra Yes 20mg QD Take [address] m oxalate 8-16 tablets [facility] (LEXAPRO) 13:09: (20 mg Medica l 10 MG 35 total) by Center tablet mouth daily. gabapentin 2023-0 Yes 200mg Q.[id number] Take [address] (NEURONTIN) 8-16 [id number] capsules [facility] 100 MG 13:09: 3D (200 mg Medical capsule 35 total) by Center mouth 3 (three) times daily. allopurinoL 2023-0 Yes 100mg QD Take [address] (ZYLOPRIM) 8-16 tablet [facility] 100 MG 13:09: (100 mg Medical tablet 35 total) by Center mouth daily. aspirin 81 2023-0 Yes 81mg QD Take 1 [facility] MG EC 8-16 tablet (81 [facility] tablet 13:09: mg total) Medica l 35 by mouth Center daily. metoprolol 2023-0 Yes 25mg QD Take 1 [facility] succinate 7-13 tablet (25 Luke [facility] (TOPROL-XL) 18:24: mg total) M edical 25 MG 24 hr 50 by mouth Cent er tablet daily. valsartan 2023-0 Yes 320mg QD Take 1 [facility] (DIOVAN) 7-13 tablet [facility] 320 MG 18:24: (320 mg Medical tablet 50 total) by Center mouth daily. escitalopra 2023-0 Yes 20mg QD Take [address] m oxalate 7-13 tablets [facility] (LEXAPRO) 18:24: (20 mg Medica l 10 MG 50 total) by Center tablet mouth daily. gabapentin 2023-0 Yes 200mg Q.[id number] Take [address] (NEURONTIN) 7-13 [id number] capsules [facility]ukes 100 MG 18:24: 3D (200 mg Medical capsule 50 total) by Center mouth 3 (three) times daily. allopurinoL 2023-0 Yes 100mg QD Take [address] (ZYLOPRIM) 7-13 tablet [facility]ukes 100 MG 18:24: (100 mg Medical tablet 50 total) by Center mouth daily. aspirin 81 3-0 Yes 81mg QD Take 1 [facility] MG EC 7-13 tablet (81 [facility] tablet 18:24: mg total) Medica l 50 by mouth Center daily. nitroglycer 2023-0 2023- No .6mg Place [address] in 12-04-13 tablet [facility]ukes (NITROSTAT) 15:34: 00:00 (0.6 mg Me dical 0.6 MG SL 50 :00 total) Center tablet under the tongue every 5 (five) minutes as needed for Chest pain Put 1 pill under tongue every 5min as needed for chest pain.No more than 3 doses in 15min.Call 911 if pain is unrelieved 5min after 1st dose . omeprazole 2023-0 2023- No 20mg Take [address] [facility] (PriLOSEC) 12-04 capsule [facility] 20 MG 15:34: 00:00 (20 mg Medical capsule 50 :00 total) by Center mouth daily as needed. nitroglycer 2023-0 2023- No .6mg Place 1 CH I [...] unrelieved 5min after 1st dose . omeprazole 2023-0 2023- No 20mg Take [address] [facility] (PriLOSEC) 12-04 capsule [facility] 20 MG 15:34: 00:00 (20 mg Medical capsule 50 :00 total) by Center mouth daily as needed. nitroglycer 2023-0 2023- No .6mg Place 1 CH I [...] unrelieved 5min after 1st dose . omeprazole 2023-0 2023- No 20mg Take [address] [facility] (PriLOSEC) 12-04 capsule [facility] 20 MG 15:34: 00:00 (20 mg Medical capsule 50 :00 total) by Center mouth daily as needed. metoprolol 2023-0 Yes 25mg QD Take 1 [facility] succinate 12-04 tablet (25 Luke s (TOPROL-XL) 15:34: mg total) M edical 25 MG 24 hr 48 by mouth Cent er tablet daily. valsartan 0 Yes 320mg QD Take 1 [facility] (DIOVAN) 7-13 tablet [facility] 320 MG 15:34: (320 mg Medical tablet 48 total) by Center mouth daily. escitalopra 0 Yes 20mg QD Take [address] m oxalate 7-13 tablets [facility] (LEXAPRO) 15:34: (20 mg Medica l 10 MG 48 total) by Center tablet mouth daily. gabapentin 0 Yes 200mg Q.[id number] Take [address] (NEURONTIN) 7-13 [id number] capsules [facility] 100 MG 15:34: 3D (200 mg Medical capsule 48 total) by Center mouth 3 (three) times daily. allopurinoL 0 Yes 100mg QD Take [address] (ZYLOPRIM) 12-04 tablet [facility]ukes 100 MG 15:34: (100 mg Medical tablet 48 total) by Center mouth daily. aspirin 81 0 Yes 81mg QD Take 1 [facility] MG EC 12-04 tablet (81 [facility] tablet 15:34: mg total) Medica l 48 by mouth Center daily. clopidogreL 2022- No 75mg QD Take [address] (PLAVIX) 75 7-10 07-10 by mouth Suresh es mg tablet 16:37: 00:00 daily. Medic al 51 :00 Center clopidogreL 2022-0 2022- No 75mg QD Take [address] (PLAVIX) 75 7-10 07-10 by mouth Suresh es mg tablet 16:37: 00:00 daily. Medic al 51 :00 Center clopidogreL 2022-0 2022- No 75mg QD Take [address] (PLAVIX) 75 7-10 07-10 by mouth Suresh es mg tablet 16:37: 00:00 daily. Medic al 51 :00 Center metoprolol 0 Yes 25mg QD Take [address] succinate 1-07 by mouth [facility] (TOPROL-XL) 13:43: daily. Medi kilo 25 MG 24 hr 19 Center tablet clopidogreL 0 Yes 75mg QD Take [address] (PLAVIX) 75 1-07 by mouth Luke s mg tablet 13:43: daily. Medica l 19 Center valsartan 0 Yes 320mg QD Take [address] (DIOVAN) 1-07 mg by [facility]ukes 320 MG 13:43: mouth Medical tablet 19 daily. Williams escitalopra Yes 10mg QD Take [address] m oxalate 1-07 by mouth [facility]ukes (LEXAPRO) 13:43: daily. Medica l 10 MG 19 Center tablet gabapentin Yes 100mg Q.[id number] Take [address] (NEURONTIN) 1-07 [id number] mg by L ukes 100 MG 13:43: 3D mouth 3 Medical capsule 19 (three) Center times daily. allopurinoL Yes 100mg QD Take [address] (ZYLOPRIM) 1-07 mg by [facility]ukes 100 MG 13:43: mouth Medical tablet 19 daily. Williams aspirin 81 Yes 81mg QD Take 81 [...] 13:43: daily as Medical capsule 19 needed. Williams metoprolol Yes 25mg QD Take [address] succinate 1-07 by mouth [facility] (TOPROL-XL) 13:43: daily. Medi kilo 25 MG 24 hr 19 Center tablet clopidogreL Yes 75mg QD Take [address] (PLAVIX) 75 1-07 by mouth Luke s mg tablet 13:43: daily. Medica l 19 Williams valsartan Yes 320mg QD Take [address] (DIOVAN) 1-07 mg by [facility]ukes 320 MG 13:43: mouth Medical tablet 19 daily. [facility] escitalopra Yes 10mg QD Take [address] m oxalate 1-07 by mouth [facility]ukes (LEXAPRO) 13:43: daily. Medica l 10 MG 19 Center tablet gabapentin Yes 100mg Q.[id number] Take [address] (NEURONTIN) 1-07 [id number] mg by L ukes 100 MG 13:43: 3D mouth 3 Medical capsule 19 (three) Center times daily. allopurinoL Yes 100mg QD Take [address] (ZYLOPRIM) 1-07 mg by [facility]ukes 100 MG 13:43: mouth Medical tablet 19 daily. Center aspirin 81 Yes 81mg QD Take 81 [...] Take 0.[address] n (LIPITOR) 05-31- tablets Luke s 80 MG 00:00: 00:00 (40 mg Medical tablet 00 :00 total) by Center mouth daily. atorvastati 2022- No 40mg QD Take 0.[address] n (LIPITOR) 05-31- tablets Luke s 80 MG 00:00: 00:00 (40 mg Medical tablet 00 :00 total) by Center mouth daily. atorvastati 2022- No 40mg QD Take 0.[address] n (LIPITOR) 05-31 07-13 tablets Luke s 80 MG 00:00: 00:00 (40 mg Medical tablet 00 :00 total) by Center mouth daily. simvastatin 2020-0 Yes 40mg QD Take 40 mg [facility] (ZOCOR) 40 1-[address] MG tablet 12:41: nightly. Hosp phyllis 47 l gabapentin 2020-0 Yes 100mg Q.[id number] Take 100 [facility] (NEURONTIN) 1-09 [id number] mg by s t 100 mg 12:41: [...] phyllis 47 l gabapentin 2020-0 Yes 100mg Q.[id number] Take 100 [facility] (NEURONTIN) 1-09 [id number] mg by s t 100 mg 12:41: [...] phyllis 47 l gabapentin 2020-0 Yes 100mg Q.[id number] Take 100 [facility] (NEURONTIN) 1-09 [id number] mg by s t 100 mg 12:41: [...] as needed for chest pain. Immunizations Ordered Filled Immunization Date Status Comments [facility]:00:00 [facility] COVID-19 2020-07-13 Completed [facility] VACCINATION 00:00:00 [facility] COVID-19 2020-06-22 Completed [facility] VACCINATION 00:00:00 [facility] COVID-19 2020-06-22 Completed [facility] COVID19 Unknown Completed [facility] VACC[facility] Vital Signs Vital Name Observation Time Observation Value Comments Source HEIGHT 2020-05-26 13:26:00 179.8 cm WEIGHT 2020-05-26 13:26:00 98.249 kg HEIGHT 2023-02-18 12:17:00 175.3 cm WEIGHT 2023-02-18 12:17:00 86.955 kg HEIGHT 2023-02-18 10:21:00 175.3 cm WEIGHT 2023-02-18 10:21:00 86.093 kg HEIGHT 2023-02-18 12:17:00 175.3 cm WEIGHT 2023-02-18 12:17:00 86.955 kg HEIGHT 2023-02-09 13:52:00 174 cm WEIGHT 2023-02-09 13:52:00 84.823 kg HEIGHT 2023-01-21 13:51:00 175.3 cm WEIGHT 2023-01-21 13:51:00 91.309 kg HEIGHT 2023-01-21 08:33:00 175.3 cm WEIGHT 2023-01-21 08:33:00 90.765 kg HEIGHT 2023-01-21 08:33:00 175.3 cm WEIGHT 2023-01-21 08:33:00 90.765 kg HEIGHT 2023-01-07 13:04:00 172.7 cm WEIGHT 2023-01-07 13:04:00 89.359 kg HEIGHT 2023-01-07 13:04:00 172.7 cm WEIGHT 2023-01-07 13:04:00 89.359 kg HEIGHT 2020-05-26 13:26:00 179.8 cm WEIGHT 2020-05-26 13:26:00 98.249 kg Systolic blood 2023-01-07 13:04:00 135 mm[Hg] [facility] Diastolic blood 2023-01-07 13:04:00 67 mm[Hg] [facility] Heart rate 2023-01-07 13:04:00 60 /min [facility] Body temperature 2023-01-07 13:04:00 36.78 Hannah [facility] Respiratory rate 2023-01-07 13:04:00 20 /min [facility] Body height 2023-01-07 13:04:00 172.7 cm [facility] Body weight 2023-01-07 13:04:00 89.359 kg [facility] BMI 2023-01-07 13:04:00 29.95 kg/m2 [facility] Oxygen saturation in 2023-01-07 13:04:00 98 /min [facility] Arterial blood by Medical Ce nter Pulse oximetry Systolic blood 2022-12-04 12:50:00 128 mm[Hg] [facility] Diastolic blood 2022-12-04 12:50:00 67 mm[Hg] [facility] Heart rate 2022-12-04 12:50:00 60 /min [facility] Oxygen saturation in 2022-12-04 12:50:00 97 /min [facility] Arterial blood by Medical Ce nter Pulse oximetry Respiratory rate 2022-12-04 11:15:00 16 /min [facility] Body temperature 2022-12-04 07:00:00 36.22 Hannah [facility] Body height 2022-12-01 17:43:00 179 cm [facility] Body weight 2022-12-01 17:43:00 98.2 kg [facility] BMI 2022-12-01 17:43:00 30.65 kg/m2 [facility] Procedures Procedure Date / Time Performing Clinician Source Performed CBC W/PLT COUNT & AUTO 2023-01-07 16:38:[address] [facility] METABOLIC 2023-01-07 16:38:00 Mert Miller I [facility] CBC W/PLT COUNT & AUTO 2023-01-07 16:38:00 Mert Miller [facility] CT CHEST WITHOUT IV 2022-12-04 14:10:00 Jose Luis Reis [facility] CONTRAST [facility] MR ABDOMEN WITH & WITHOUT 2022-12-04 12:36:00 Jackie Pak [facility] IV [facility] XR CHEST 2 VIEWS 2022-12-04 09:45:00 Gina Napoles [facility] CARBOHYDRATE ANTIGEN 19-9 2022-12-04 04:01:00 Jose Luis Reis I [facility] (CA 19-9) [facility] 2022-12-04 04:01:00 Jose Luis Reis [facility] PACEMAKER CHECK WITH 2022-12-04 00:00:00 Rosalba Chau [facility] CBC W/PLT COUNT & AUTO 2022-12-03 12:49:00 Grant Orosco [facility] 2022-12-03 12:49:00 Ana Luisa, [facility] CBC W/PLT COUNT & AUTO 2022-12-03 12:49:00 Grant Orosco [facility] DIFFERENTIAL [facility] REPORT OF PROCEDURE - 2022-12-02 14:55:31 Joey [facility]ED[facility] - 2022-12-02 14:48:09 Joey [facility] TISSUE EXAM 2022-12-02 14:22:00 Otdanna [facility] EGD 2022-12-02 13:20:00 Rafalankur [facility] (ESOPHAGOGASTRODUODENOSCOP [facility] Y) ERCP, WITH SPHINCTEROTOMY 2022-12-02 13:20:00 danna [facility] PROCEDURE W/ C-ARM 2022-12-02 13:20:00 Rafalankur [facility] ULTRASOUND, UPPER GI 2022-12-02 13:20:00 Rafalankur [facility] TRACT, ENDOSCOPIC, WITH [facility] FINE NEEDLE ASPIRATION ENDOSCOPIC RETROGRADE 2022-12-02 13:20:00 Rafalankur [facility] CHOLANGIOPANCREATOGRAPHY, [facility] WITH BILE DUCT STENT INSERTION CBC (HEMOGRAM ONLY) 2022-12-02 05:38:00 Jackie Pak [facility] BASIC METABOLIC PANEL 2022-12-02 05:38:00 KennedysdJackie [facility] HEPATIC FUNCTION PANEL 2022-12-02 05:38:00 [facility] PROTHROMBIN TIME/INR 2022-12-02 05:38:00 [facility] Plan of Care Planned Activity Planned Date Details Comments Source Future Scheduled 2023-12-03 Tobacco Cessation [facility] Test 00:00:00 [facility] [...] Cessation Counseling and Screening (12+)] Future Scheduled 2023-02-09 SHINGLES VACCINES (1 [facility] Test 10:50:58 of 2) [code = SHINGLES VACCINES (1 of 2)] Future Scheduled 2023-02-09 65+ [facility]OCOCCAL [facility] Test 10:50:58 VACCINE (1 - PCV) [code = 65+ PNEUMOCOCCAL VACCINE (1 - PCV)] Future Scheduled 2023-02-09 COVID-19 VACCINE (3 - [facility] Test 10:50:58 Pfizer series) [code = COVID-19 VACCINE (3 - Pfizer series)] Future Scheduled 2023-02-09 INFLUENZA VACCINE (#1) [facility] Test 10:50:58 [code = INFLUENZA VACCINE (#1)] Future Scheduled 2023-01-23 Influenza Vaccine (#1) [...] Future Scheduled 2022-12-13 SHINGLES VACCINES (1 [facility] Test 17:55:03 of 2) [code = SHINGLES VACCINES (1 of 2)] Future Scheduled 2022-12-13 65+ PNEUMOCOCCAL [facility] Test 17:55:03 VACCINE (1 - PCV) [code = 65+ PNEUMOCOCCAL VACCINE (1 - PCV)] Future Scheduled 2022-12-13 COVID-19 VACCINE (3 - Me [facility] Test 17:55:03 Pfizer series) [code = COVID-19 VACCINE (3 - Pfizer series)] Future Scheduled 2022-12-13 INFLUENZA VACCINE [facility] Test 17:55:03 [code = INFLUENZA VACCINE] [...] Future Scheduled 2022-03-30 HEPATITIS B VACCINES Met [facility] Test 22:04:28 (1 of 3 - 3-dose series) [code = HEPATITIS B VACCINES (1 of 3 - 3-dose series)] Future Scheduled 2022-03-30 SHINGLES VACCINES (1 Met [facility] Test 22:04:28 of 2) [code = SHINGLES VACCINES (1 of 2)] Future Scheduled 2022-03-30 65+ [facility] 22:04:28 VACCINE (1 - PCV) [code = 65+ PNEUMOCOCCAL VACCINE (1 - PCV)] Future Scheduled 2022-03-30 COVID-19 VACCINE (3 - Me [facility] Test 22:04:28 Booster for Pfizer series) [code = COVID-19 VACCINE (3 - Booster for Pfizer series)] Future Scheduled 2022-03-30 INFLUENZA VACCINE [facility] Test 22:04:28 [code = INFLUENZA VACCINE] [...] Date/Time Type Type Clinicians Facility Department ID 2023-02-06 Outpatient [facility] [id number] [facility] 06:56:15 2022-12-04 [facility] [id number] [facility] 12:27:02 JOSE LUIS 2022-12-04 Inpatient ER GINA NAPOLES [facility] [id number] SLE 09:17:05 2020-05-26 Inpatient ER MICAELA [facility] [id number] [facility] 12:59:00 ERIKA 2023-07-23 2023-07-23 Outpatient [facility] [id number] [facility] 00:00:00 00:00:00 2023-03-04 2023-03-04 Outpatient ANGELA [facility] [id number] [facility] 00:00:00 00:00:00 [facility] 2023-03-04 2023-03-04 Outpatient [facility] [id number] [facility] 00:00:00 00:00:00 2023-02-18 2023-02-18 Outpatient KOLBY MILLER [facility] [id number] SLE 11:24:39 23:59:00 [facility] 2023-02-18 2023-02-18 Outpatient KOLBY MILLER [facility] [id number] SLE 09:55:10 14:44:23 [facility] 2023-02-18 2023-02-18 Outpatient [facility] [id number] SLE 09:41:33 09:41:33 2023-02-11 2023-02-11 Outpatient ANGELA [facility] [id number] SLE 00:00:00 00:00:00 [facility] 2023-02-09 2023-02-09 Outpatient KOLBY MILLER [facility] [id number] SLE[facility] 10:50:51 16:15:00 [facility] 2023-02-04 2023-02-04 Outpatient ANGELA [facility] [id number] SLE 09:04:43 23:59:00 [facility] 2023-02-04 2023-02-04 Outpatient ANGELA [facility] [id number] SLE 11:41:49 12:41:06 [facility] 2023-02-04 2023-02-04 Outpatient [facility] [id number] SLEH 08:47:52 08:47:52 2023-02-04 2023-02-04 Outpatient CHIKA TOBIAS [facility] [id number] SLE[facility] 00:00:00 00:00:00 [facility] 2023-02-02 2023-02-02 Outpatient EL [facility] [id number] [facility] 00:00:00 00:00:00 2023-02-02 2023-02-02 Outpatient EL [facility] [id number] [facility] 00:00:00 00:00:00 2023-01-28 2023-01-28 Outpatient KOLBY MILLER [facility] [id number] [facility] 11:16:04 12:04:12 [facility] 2023-01-28 2023-01-28 Outpatient KOLBY GARSIA [facility] [id number] SLE 00:00:00 00:00:00 [facility] 2023-01-21 2023-01-21 Outpatient KOLBY MILLER [facility] [id number] SLE 12:10:12 15:24:50 [facility] 2023-01-21 2023-01-21 [id number] [facility] 07:44:02 07:44:02 , [facility] 2023-01-07 2023-01-07 Outpatient EL SLE SLE [id number] SLE 16:31:44 16:31:44 2023-01-07 2023-01-07 Office Chika Tobias [facility] [id number] 15:40:00 16:06:16 Visit [facility] 2023-01-07 2023-01-07 Outpatient KOLBY GARSIA [facility] [id number] SLE 14:45:03 16:06:16 [facility] 2023-01-07 2023-01-07 Treatment [facility] [id number] 14:55:00 15:10:00 [facility] 2023-01-07 2023-01-07 Office KOLBY Miller [facility] [id number] 13:00:00 14:21:35 Visit [facility] 2023-01-07 2023-01-07 Outpatient JENNIFER GUNN SLE [id number] SLE 12:34:21 14:21:35 [facility] 2023-01-05 2023-01-05 [id number] 00:00[facility]00 00:00:00 [facility] 2022-12-17 2022-12-17 Outpatient EL ANGELA [facility] [id number] SLE 00:00:00 00:00:00 [facility] 2022-12-17 2022-12-17 Telephone Angela [facility] [id number] 00:[facility]00 00:00:00 [facility] 2022-12-17 2022-12-17 Telephone Tripp [facility] [id number] 00:00:00 00:00:00 [facility] 2022-12-01 2022-12-04 Inpatient ER SMILEY [facility] [id number] SLE 16:08:00 18:24:00 JOSE LUIS 2022-12-04 2022-12-04 Inpatient ER CHANGENV [facility] [id number] SLE 10:08:27 00:00:00 JACKIE 2022-12-04 2022-12-04 Orders Rosalba Chau [facility] [id number] 00:00:00 00:00:00 Only [facility] 2022-12-02 2022-12-02 Surgery Otankur, [facility] [id number] 14:33:00 15:59:00 [facility] 2022-12-02 2022-12-02 Anesthesia Gudimella, [facility] [id number] 13:36:00 15:19:00 Event [place] [facility] 2022-12-02 2022-12-02 Outpatient ER [facility] [id number] [address] 15:00:02 15:00:02 [facility] 2022-12-01 2022-12-01 Travel [facility] [id number] [facility] 00[facility] 00:00:00 [facility] 2020-07-13 2020-07-13 Outpatient [facility] [id number] [place] 00:00:00 00:00:[address] 2020-06-22 2020-06-22 Outpatient [facility] [id number] [place] 00:00:00 00:00:[address] 2019-05-31 2019-06-02 Inpatient [facility] 060 [id number] [place] 00:00:00 00:00:00 G[facility] Results Test Description Test Time Test Comments Results Result Comments Source HEPATITIS B PANEL 2023-02-18 14:49:06 Test Item Value Reference Range Interpretation Comme nts HEPATITIS B CORE TOTAL ANTIBODY (BEAKER) (test code = Nonreactive Nonreactive 497) HEPATITIS B SURFACE ANTIBODY (BEAKER) (test code = 647) < mIU/mL <8.0 HEPATITIS B SURFACE ANTIGEN (2) (BEAKER) (test code = Nonreactive Nonreactive 2585) Powder Hand ID - ADMINHEPATITIS C [id number] 14:47:41 Test Item Value Reference Range Interpretation Comments HEPATITIS C ANTIBODY (BEAKER) Nonreactive Nonreactive (test code = 367) Powder Hand ID - [id number] 12:25:59 Test Item Value Reference Range Interpretation Comments MAGNESIUM (BEAKER) (test code = 1.7 mg/dL 1.6-2.6 627) COMPREHENSIVE METABOLIC [id number] 10:32:02 Test Item Value Reference Range Interpretation Comments TOTAL PROTEIN 6.7 gm/dL 6.0-8.3 (BEAKER) (test code = 770) ALBUMIN (BEAKER) 3.8 g/dL 3.5-5.0 (test code = 1145) ALKALINE 398 U/L 40-150 H PHOSPHATASE (BEAKER) (test code = 346) BILIRUBIN TOTAL 0.8 mg/dL 0.2-1.2 (BEAKER) (test code = 377) SODIUM (BEAKER) 143 meq/L 136-145 (test code = 381) POTASSIUM (BEAKER) 2.8 meq/L 3.5-5.1 L (test code = 379) CHLORIDE (BEAKER) 108 meq/L 98-107 H (test code = 382) CO2 (BEAKER) (test 27 meq/L 22-29 code = 355) BLOOD UREA 13 mg/dL 7-21 NITROGEN (BEAKER) (test code = 354) CREATININE 1.31 mg/dL 0.57-1.25 H (BEAKER) (test code = 358) GLUCOSE RANDOM 108 mg/dL 70-105 H (BEAKER) (test code = 652) CALCIUM (BEAKER) 8.9 mg/dL 8.4-10.2 (test code = 697) AST (SGOT) 43 U/L 5-34 H (BEAKER) (test code = 353) ALT (SGPT) 42 U/L 6-55 (BEAKER) (test code = 347) EGFR (BEAKER) 53 Interpretatio n of eGFR (test code = [...] not appl icable for dialysis patien ts CBC W/PLT COUNT & AUTO [id number] 10:16:06 Test Item Value Reference Range Interpretation Comments WHITE BLOOD CELL COUNT (BEAKER) 6.7 K/ L 3.5-10.5 (test code = 775) RED BLOOD CELL COUNT (BEAKER) 3.67 M/ L (test code = 761) HEMOGLOBIN (BEAKER) (test code = 12.0 GM/DL 13.7-17.5 L 410) HEMATOCRIT (BEAKER) (test code = 35.6 % 40.1-51.0 L 411) MEAN CORPUSCULAR VOLUME (BEAKER) 97 fL 79-92 H (test code = 753) MEAN CORPUSCULAR HEMOGLOBIN 32.7 pg 25.7-32.2 H (BEAKER) (test code = 751) MEAN CORPUSCULAR HEMOGLOBIN CONC 33.7 GM/DL 32.3-36.5 (BEAKER) (test code = 752) RED CELL DISTRIBUTION WIDTH 14.4 % 11.6-14.4 (BEAKER) (test code = 412) PLATELET COUNT (BEAKER) (test 252 K/CU MM 150-450 code = 756) MEAN PLATELET VOLUME (BEAKER) 9.5 fL 9.4-12.4 (test code = 754) NEUTROPHILS RELATIVE PERCENT 65 % (BEAKER) (test code = 429) LYMPHOCYTES RELATIVE PERCENT 21 % (BEAKER) (test code = 430) MONOCYTES RELATIVE PERCENT 7 % (BEAKER) (test code = 431) EOSINOPHILS RELATIVE PERCENT 6 % (BEAKER) (test code = 432) BASOPHILS RELATIVE PERCENT 0 % (BEAKER) (test code = 437) NEUTROPHILS ABSOLUTE COUNT 4.38 K/ L 1.78-5.38 (BEAKER) (test code = 670) LYMPHOCYTES ABSOLUTE COUNT 1.40 K/ L 1.32-3.57 (BEAKER) (test code = 414) MONOCYTES ABSOLUTE COUNT (BEAKER) 0.48 K/ L 0.30-0.82 (test code = 415) EOSINOPHILS ABSOLUTE COUNT 0.41 K/ L 0.04-0.54 (BEAKER) (test code = 416) BASOPHILS ABSOLUTE COUNT (BEAKER) 0.03 K/ L 0.01-0.08 (test code = 417) IMMATURE GRANULOCYTES-RELATIVE 0.10 % 0.00-1.00 PERCENT (BEAKER) (test code = 2801) TISSUE [id number] 14:43:25Surgical Pathology Report Case: [id number] Authorizing Provider: Konstantin Morataya, Collected: 12/02/2022 02:22 PM Ordering Location: [address] Received: 12/03/2022 12:07 PM Ser vice Pathologist: Ivonne Guerrero MD Specimen: Pancreas, Head, Head of Pancreas Mass BX via FNB THE DIAGNOSIS HAS BEEN AMENDED FROM SUSPICIOUS FOR ADENOCARCINOMA TO INVASIVE ADENOCARCINOMA,FOLLOWING DISCUSSION AT MULTIDISCIPLINARY CONFERENCE AND ADDITIONAL CLINICAL INFORMATION OF A PANCREATIC MASS BY IMAGING.A. PANCREATIC HEAD MASS, US-GUIDED NEEDLE CORE BIOPSY:-Invasive adenocarcinoma, see comment Signing Pathologist Direct Phone Line: [phone] electronically signed by Ivonne Guerrero MD on 02/17/2023 at 2:43 PM The pancreatic biopsy shows predominantly fragments of benign pancreatic parenchyma with dense stromal fibrosis and chronic inflammatory infiltrate. Very few atypical glands are seen embedded in the fibrous stroma and occasional single atypical cells.The findings are consistent with an infiltrating ductal adenocarcinoma.CK7 was attempted, however tissue was lost on processing, therefore noncontributory. The biopsy is inadequate for ancillary studies.[id number] massA. Pancreas, HeadReceived in formalin labeled with the patient's name, medical record number and "pancreas head" is a 1.5 x 1.0 x 0.2 cm aggregate of eli-red soft tissue cores, which are submitted in toto in A1-A2.Katia CanoThe interpretation of this case included the use of immunohistochemistry orspecial stains.Control Slides Examined: In- house known positive controls were evaluated along with the test tissue. These control slides run alongside of the patients sample show appropriate staining. I nternal positive and negative controls when available are evaluated Immunohistochemistry technical testing was performed at [facility], Pathology Laboratory where it was developedand its performance characteristics were determined. It has not been cleared or approved by the U.S. Food and Drug Administration. The FDA has determined that such clearance or approval is not necessary. The test is used for clinical purposes. It should not be regarded as investigational or for research. This laboratory is certified under the Clinical Laboratory Improvement Amendments of 1988 (CLIA-88) as qualified to perform high complexity clinical laboratory testing.IR PORT-A-CATH [id number] 15:45:58 [facility] 1935 Sex: MRight internal jugular chest port insertion History: Pancreatic cancer. Modality: Sonography and fluoroscopy. Sedation: Moderate sedation was administered. 1 mg of Versed and 50 mcgof fentanyl IV was used for moderate sedation monitored under mydirection. Total intra-service time of sedation was 30 minutes.Thepatient's vital signs were monitored throughout the procedure andrecorded in the patient's medical record by the nurse. Bank Teller Machine Mechanic: Pankaj Bhagat MDAssistant: None. Approach: Right internal jugular vein Estimated blood loss: < 5 cc.Specimen: None. Fluoroscopy Time: 0.2 min.Reference Air Kerma (Ka, r): 23.3 mGy.Technique: Informed written consent was obtained. Discussion of risks, benefits,and alternatives were made with the patient. The patient expressedunderstanding and agreed to proceed. A universal timeout was performedprior to starting the procedure. All elements maximal sterile barriertechnique was utilized for this procedure, including utilization ofsterile scrub solution for skin prep, a large sterile sheet to cover theareas of the patient that were not prepped, and hand hygiene, mask, headcovering, and sterile gown for performing radiologist and scrubtechnologist.The skin was anesthetized with 2% lidocaine. Ultrasound evaluationshowed a patent and compressible right internal jugular vein, which waspunctured under direct real-time ultrasound guidance with amicropuncture need le. An ultrasound image was saved to PACS. A 0.018 inch wire was placed through the needle into the right atrium. A4 Lithuanian micropuncture sheath was placed and a 0.035 wire was advancedinto the IVC. A subcutaneous tunnel and pocket were created in the rightanterior chest wall by blunt dissection. The pocket was flushed withantibiotic solution. A 6 Lithuanian Bard single lumen power injectable portwas placed within the pocket and the catheter brought through thetunnel. The catheter was cut at 24 cm. A peel-away sheath was placed inthe right IJ vein and the catheter was advanced through the sheath, withits distal tip terminating in the superior right atrium. The peel-awaysheath was removed. The port wasflushed and aspirated easily followingplacement. The skin incision was closed with 3-0 Monocryl andDermabond. The small jugular incision site was closed using Dermabond. The patient tolerated the procedure well and left the department in thesame condition. Results: Spot radiograph of the chest demonstrates the new right EWBdmm-Y-Notv to lie in the expected position with its tip overlying thesuperiorright atrium. IMPRESSION:Impression: Successful, uncomplicated placement of a right internal jugular chestport using sonographic and fluoroscopic guidance and conscious sedation.The port is ready for immediate use. Electronically Signed By: Pankaj Bhagat MD02/09/2023 15:48 CDTWorkstation Name: [id number] 14:13:52 Test Item Value Reference Range Interpretation Comments HEPATITIS B CORE TOTAL ANTIBODY Nonreactive Nonreactive (BEAKER) (test code = 497) HEPATITIS B SURFACE ANTIBODY < mIU/mL <8.0 (BEAKER) (test code = 647) HEPATITIS B SURFACE ANTIGEN (2) Nonreactive Nonreactive (BEAKER) (test code = 2585) Powder Hand ID - ADMINHEPATITIS C [id number] 13:43:18 Test Item Value Reference Range Interpretation Comments HEPATITIS C ANTIBODY (BEAKER) Nonreactive Nonreactive (test code = 367) Powder Hand ID - ADMINCOMPREHENSIVE METABOLIC [id number] 09:41:41 Test Item Value Reference Range Interpretation Comments TOTAL PROTEIN 6.4 gm/dL 6.0-8.3 (BEAKER) (test code = 770) ALBUMIN (BEAKER) 3.8 g/dL 3.5-5.0 (test code = 1145) ALKALINE 179 U/L 40-150 H PHOSPHATASE (BEAKER) (test code = 346) BILIRUBIN TOTAL 0.9 mg/dL 0.2-1.2 (BEAKER) (test code = 377) SODIUM (BEAKER) 143 meq/L 136-145 (test code = 381) POTASSIUM (BEAKER) 3.5 meq/L 3.5-5.1 (test code = 379) CHLORIDE (BEAKER) 109 meq/L 98-107 H (test code = 382) CO2 (BEAKER) (test 28 meq/L 22-29 code = 355) BLOOD UREA 11 mg/dL 7-21 NITROGEN (BEAKER) (test code = 354) CREATININE 1.42 mg/dL 0.57-1.25 H (BEAKER) (test code = 358) GLUCOSE RANDOM 116 mg/dL 70-105 H (BEAKER) (test code = 652) CALCIUM (BEAKER) 8.6 mg/dL 8.4-10.2 (test code = 697) AST (SGOT) 18 U/L 5-34 (BEAKER) (test code = 353) ALT (SGPT) 17 U/L 6-55 (BEAKER) (test code = 347) EGFR (BEAKER) 48 Interpretatio n of eGFR (test code = [...] not appl icable for dialysis patien ts [id number] 09:40:27 Test Item Value Reference Range Interpretation Comments MAGNESIUM (BEAKER) (test code = 1.5 mg/dL 1.6-2.6 L 627) CBC W/PLT COUNT & AUTO [id number] 09:20:43 Test Item Value Reference Range Interpretation Comments WHITE BLOOD CELL COUNT (BEAKER) 8.7 K/ L 3.5-10.5 (test code = 775) RED BLOOD CELL COUNT (BEAKER) 3.80 M/ L (test code = 761) HEMOGLOBIN (BEAKER) (test code = 12.3 GM/DL 13.7-17.5 L 410) HEMATOCRIT (BEAKER) (test code = 36.6 % 40.1-51.0 L 411) MEAN CORPUSCULAR VOLUME (BEAKER) 96 fL 79-92 H (test code = 753) MEAN CORPUSCULAR HEMOGLOBIN 32.4 pg 25.7-32.2 H (BEAKER) (test code = 751) MEAN CORPUSCULAR HEMOGLOBIN CONC 33.6 GM/DL 32.3-36.5 (BEAKER) (test code = 752) RED CELL DISTRIBUTION WIDTH 14.2 % 11.6-14.4 (BEAKER) (test code = 412) PLATELET COUNT (BEAKER) (test 225 K/CU MM 150-450 code = 756) MEAN PLATELET VOLUME (BEAKER) 9.8 fL 9.4-12.4 (test code = 754) NEUTROPHILS RELATIVE PERCENT 64 % (BEAKER) (test code = 429) LYMPHOCYTES RELATIVE PERCENT 21 % (BEAKER) (test code = 430) MONOCYTES RELATIVE PERCENT 7 % (BEAKER) (test code = 431) EOSINOPHILS RELATIVE PERCENT 7 % (BEAKER) (test code = 432) BASOPHILS RELATIVE PERCENT 1 % (BEAKER) (test code = 437) NEUTROPHILS ABSOLUTE COUNT 5.62 K/ L 1.78-5.38 H (BEAKER) (test code = 670) LYMPHOCYTES ABSOLUTE COUNT 1.80 K/ L 1.32-3.57 (BEAKER) (test code = 414) MONOCYTES ABSOLUTE COUNT (BEAKER) 0.63 K/ L 0.30-0.82 (test code = 415) EOSINOPHILS ABSOLUTE COUNT 0.63 K/ L 0.04-0.54 H (BEAKER) (test code = 416) BASOPHILS ABSOLUTE COUNT (BEAKER) 0.04 K/ L 0.01-0.08 (test code = 417) IMMATURE GRANULOCYTES-RELATIVE 0.10 % 0.00-1.00 PERCENT (BEAKER) (test code = 2801) ANTI-NUCLEAR ANTIBODY (SUZANNE)2023-01-22 13:30:16 Test Item Value Reference Range Interpretation Comments ANTI-NUCLEAR ANTIBODY (SUZANNE) (BEAKER) Negative Negative (test code = 418) Test performed by IFA method.Test performed by IFA method.HEPATITIS B SURFACE [id number] 16:24:31 Test Item Value Reference Range Interpretation Comments HEPATITIS B SURFACE ANTIBODY < mIU/mL <8.0 (BEAKER) (test code = 647) Powder Hand ID - ADMINHEPATITIS B SURFACE [id number] 16:22:45 Test Item Value Reference Range Interpretation Comments HEPATITIS B SURFACE ANTIGEN (2) Nonreactive Nonreactive (BEAKER) (test code = 2585) Specimen is considered negative for HBsAg.HEPATITIS A ANTIBODY, [id number] 14:49:28 Test Item Value Reference Range Interpretation Comments HEPATITIS A IGG ANTIBODY (BEAKER) Nonreactive Nonreactive (test code = 2797) Powder Hand ID - ADMINALPHA FETOPROTEIN (AFP), TUMOR [id number] 14:49:23 Test Item Value Reference Range Interpretation Comments ALPHA-FETOPROTEIN (BEAKER) (test 2.4 ng/mL <10.0 code = 1094) Powder Hand ID - ADMINHEPATITIS B CORE ANTIBODY, [id number] 14:49:23 Test Item Value Reference Range Interpretation Comments HEPATITIS B CORE TOTAL ANTIBODY Nonreactive Nonreactive (BEAKER) (test code = 497) Powder Hand ID - ADMINHEPATITIS C [id number] 14:48:19 Test Item Value Reference Range Interpretation Comments HEPATITIS C ANTIBODY (BEAKER) Nonreactive Nonreactive (test code = 367) Powder Hand ID - ADMINIRON, TIBC, % SAT. (WITHOUT FERRITIN)2023-01-21 14:20:11 Test Item Value Reference Range Interpretation Comments IRON (BEAKER) (test code = 547) 54.0 ug/dL 40.0-160.0 TOTAL IRON BINDING CAPACITY 226 ug/dL 250-450 L (BEAKER) (test code = 769) IRON % SATURATION (2) (BEAKER) 24 % 20-55 (test code = 2590) Powder Hand ID - [id number] 13:37:05 Test Item Value Reference Range Interpretation Comments FERRITIN (BEAKER) (test code = 105.35 ng/mL 5.00-275.00 361) Powder Hand ID - [id number] 13:25:09 Test Item Value Reference Range Interpretation Comments ALPHA-1 ANTITRYPSIN (BEAKER) 210.30 mg/dL 90.00-200.00 H (test code = 502) Powder Hand ID - ADMINCOMPREHENSIVE METABOLIC [id number] 11:10:45 Test Item Value Reference Range Interpretation Comments TOTAL PROTEIN 7.2 gm/dL 6.0-8.3 (BEAKER) (test code = 770) ALBUMIN (BEAKER) 3.9 g/dL 3.5-5.0 (test code = 1145) ALKALINE 193 U/L 40-150 H PHOSPHATASE (BEAKER) (test code = 346) BILIRUBIN TOTAL 0.8 mg/dL 0.2-1.2 (BEAKER) (test code = 377) SODIUM (BEAKER) 144 meq/L 136-145 (test code = 381) POTASSIUM (BEAKER) 3.4 meq/L 3.5-5.1 L (test code = 379) CHLORIDE (BEAKER) 110 meq/L 98-107 H (test code = 382) CO2 (BEAKER) (test 23 meq/L 22-29 code = 355) BLOOD UREA 15 mg/dL 7-21 NITROGEN (BEAKER) (test code = 354) CREATININE 1.46 mg/dL 0.57-1.25 H (BEAKER) (test code = 358) GLUCOSE RANDOM 111 mg/dL 70-105 H (BEAKER) (test code = 652) CALCIUM (BEAKER) 9.2 mg/dL 8.4-10.2 (test code = 697) AST (SGOT) 23 U/L 5-34 (BEAKER) (test code = 353) ALT (SGPT) 18 U/L 6-55 (BEAKER) (test code = 347) EGFR (BEAKER) 46 Interpretatio n of eGFR (test code = [...] not appl icable for dialysis patien ts Powder Hand ID - ADMINBILIRUBIN, [id number] 11:10:45 Test Item Value Reference Range Interpretation Comments BILIRUBIN DIRECT (BEAKER) (test 0.5 mg/dL 0.1-0.5 code = 706) Powder Hand ID - ADMINPROTHROMBIN [id number] 10:55:40 Test Item Value Reference Range Interpretation Comments PROTIME (BEAKER) 14.0 seconds 11.9-14.2 (test code = 759) INR (BEAKER) (test 1.15 See_Comment [Automat ed message] code = 370) The system Birdbox generated this result transmitted ref erence range: <=5.90. The reference range was not used to int erpret this result as normal/abnormal . RECOMMENDED COUMADIN/WARFARIN INR THERAPY RANGESSTANDARD DOSE: 2.0 - 3.0 Includes: PROPHYLAXIS for venous thrombosis, systemic embolization; TREATMENT for venous thrombosis and/or pulmonary embolus.HIGH RISK: Target INR is 2.5-3.5 for patients with mechanical heart valves.CBC W/PLT COUNT & AUTO [id number] 10:48:21 Test Item Value Reference Range Interpretation Comments WHITE BLOOD CELL COUNT (BEAKER) 7.5 K/ L 3.5-10.5 (test code = 775) RED BLOOD CELL COUNT (BEAKER) 4.16 M/ L (test code = 761) HEMOGLOBIN (BEAKER) (test code = 12.9 GM/DL 13.7-17.5 L 410) HEMATOCRIT (BEAKER) (test code = 39.1 % 40.1-51.0 L 411) MEAN CORPUSCULAR VOLUME (BEAKER) 94 fL 79-92 H (test code = 753) MEAN CORPUSCULAR HEMOGLOBIN 31.0 pg 25.7-32.2 (BEAKER) (test code = 751) MEAN CORPUSCULAR HEMOGLOBIN CONC 33.0 GM/DL 32.3-36.5 (BEAKER) (test code = 752) RED CELL DISTRIBUTION WIDTH 15.7 % 11.6-14.4 H (BEAKER) (test code = 412) PLATELET COUNT (BEAKER) (test 196 K/CU MM 150-450 code = 756) MEAN PLATELET VOLUME (BEAKER) 10.5 fL 9.4-12.4 (test code = 754) NUCLEATED RED BLOOD CELLS 0 /100 WBC 0-0 (BEAKER) (test code = 413) NEUTROPHILS RELATIVE PERCENT 61 % (BEAKER) (test code = 429) LYMPHOCYTES RELATIVE PERCENT 21 % (BEAKER) (test code = 430) MONOCYTES RELATIVE PERCENT 7 % (BEAKER) (test code = 431) EOSINOPHILS RELATIVE PERCENT 9 % (BEAKER) (test code = 432) BASOPHILS RELATIVE PERCENT 1 % (BEAKER) (test code = 437) NEUTROPHILS ABSOLUTE COUNT 4.57 K/ L 1.78-5.38 (BEAKER) (test code = 670) LYMPHOCYTES ABSOLUTE COUNT 1.59 K/ L 1.32-3.57 (BEAKER) (test code = 414) MONOCYTES ABSOLUTE COUNT (BEAKER) 0.53 K/ L 0.30-0.82 (test code = 415) EOSINOPHILS ABSOLUTE COUNT 0.69 K/ L 0.04-0.54 H (BEAKER) (test code = 416) BASOPHILS ABSOLUTE COUNT (BEAKER) 0.06 K/ L 0.01-0.08 (test code = 417) IMMATURE GRANULOCYTES-RELATIVE 0.40 % 0.00-1.00 PERCENT (BEAKER) (test code = 2801) COMPREHENSIVE METABOLIC [id number] 17:16:22 Test Item Value Reference Range Interpretation Comments TOTAL PROTEIN 7.2 gm/dL 6.0-8.3 (BEAKER) (test code = 770) ALBUMIN (BEAKER) 4.2 g/dL 3.5-5.0 (test code = 1145) ALKALINE 209 U/L 40-150 H PHOSPHATASE (BEAKER) (test code = 346) BILIRUBIN TOTAL 1.1 mg/dL 0.2-1.2 (BEAKER) (test code = 377) SODIUM (BEAKER) 144 meq/L 136-145 (test code = 381) POTASSIUM (BEAKER) 3.6 meq/L 3.5-5.1 (test code = 379) CHLORIDE (BEAKER) 108 meq/L 98-107 H (test code = 382) CO2 (BEAKER) (test 28 meq/L 22-29 code = 355) BLOOD UREA 19 mg/dL 7-21 NITROGEN (BEAKER) (test code = 354) CREATININE 1.28 mg/dL 0.57-1.25 H (BEAKER) (test code = 358) GLUCOSE RANDOM 94 mg/dL 70-105 (BEAKER) (test code = 652) CALCIUM (BEAKER) 9.5 mg/dL 8.4-10.2 (test code = 697) AST (SGOT) 11 U/L 5-34 (BEAKER) (test code = 353) ALT (SGPT) 21 U/L 6-55 (BEAKER) (test code = 347) EGFR (BEAKER) 54 Interpretati on of eGFR (test code = 1092) mL/min/1.73 [...] not appl icable for dialysis patien ts CBC W/PLT COUNT & AUTO [id number] 16:57:29 Test Item Value Reference Range Interpretation Comments WHITE BLOOD CELL COUNT (BEAKER) 7.6 K/ L 3.5-10.5 (test code = 775) RED BLOOD CELL COUNT (BEAKER) 4.29 M/ L (test code = 761) HEMOGLOBIN (BEAKER) (test code = 13.5 GM/DL 13.7-17.5 L 410) HEMATOCRIT (BEAKER) (test code = 41.0 % 40.1-51.0 411) MEAN CORPUSCULAR VOLUME (BEAKER) 96 fL 79-92 H (test code = 753) MEAN CORPUSCULAR HEMOGLOBIN 31.5 pg 25.7-32.2 (BEAKER) (test code = 751) MEAN CORPUSCULAR HEMOGLOBIN CONC 32.9 GM/DL 32.3-36.5 (BEAKER) (test code = 752) RED CELL DISTRIBUTION WIDTH 15.6 % 11.6-14.4 H (BEAKER) (test code = 412) PLATELET COUNT (BEAKER) (test 239 K/CU MM 150-450 code = 756) MEAN PLATELET VOLUME (BEAKER) 9.7 fL 9.4-12.4 (test code = 754) NEUTROPHILS RELATIVE PERCENT 55 % (BEAKER) (test code = 429) LYMPHOCYTES RELATIVE PERCENT 29 % (BEAKER) (test code = 430) MONOCYTES RELATIVE PERCENT 8 % (BEAKER) (test code = 431) EOSINOPHILS RELATIVE PERCENT 7 % (BEAKER) (test code = 432) BASOPHILS RELATIVE PERCENT 0 % (BEAKER) (test code = 437) NEUTROPHILS ABSOLUTE COUNT 4.17 K/ L 1.78-5.38 (BEAKER) (test code = 670) LYMPHOCYTES ABSOLUTE COUNT 2.18 K/ L 1.32-3.57 (BEAKER) (test code = 414) MONOCYTES ABSOLUTE COUNT (BEAKER) 0.62 K/ L 0.30-0.82 (test code = 415) EOSINOPHILS ABSOLUTE COUNT 0.54 K/ L 0.04-0.54 (BEAKER) (test code = 416) BASOPHILS ABSOLUTE COUNT (BEAKER) 0.03 K/ L 0.01-0.08 (test code = 417) IMMATURE GRANULOCYTES-RELATIVE 0.10 % 0.00-1.00 PERCENT (BEAKER) (test code = 2801) Tissue [id number] 09:45:56 Test Item Value Reference Range Interpretation Comments Case Report (test code Surgical Pathology = 104) Report Case: [id number] Authorizing Provider: Konstantin Morataya, Collected: 12/02/2022 02:22 PM Ordering Location: [address] Received: 12/03/2022 12:07 PM Service Pathologist: Ivonne Guerrero MD Specimen: Pancreas, Head, Head of Pancreas Mass BX via FNB DIAGNOSIS (test code = [id number] 3220) FuZzEwMzNcZnRuYmpcdWMx IHtccnRmMVxlcGljMTAyMD pqSV9tzBcvhUu5jSjeVXOy wzI8gNQuWYqsu9zuCKF2x2 xsqzkyWDIuSOmkOs2agXKd dOsbOnRyRTOfRCi8qO96OB YqrG9rbHToDHicraOrGEpj qbZtxrUjQhe3PLF8nVfoYA FxruksJdE8SBydLMErovqx IEe0KOerKIWzmUW8VTCpvC IkA2UcKLMkCC0qtic5AUO6 HFiqZICrMpE5FVLwpNPoMJ WtaUkvYMbxc530NEY2VcOe TIMldnJywJcbuF9rRmMcRQ CYOeJMUS1QHcKUHByWPAuH IQTuHZASEvbxDZQuY7YCAG BRAN4QOAXQNFNBT4VTSQWI J7PHSAbnzFZqMJJcpcFxPQ NaCEKIuNRpyCImc2WrNOVa yeRrLJYeg9WdsgFlst8cHQ hrn4XvYBIowL4ihoVnnGWg XWBpGYqeHBE8w4bhiROdSD NzdGUxODAwMFxhbnNpXGRl AjqalfxhCNYyYSA8ioAwRC DgIFkdKWKzRDflSj3kaDNi bRwoSgHaOEMti2exiqFEis znjTj4z0ukWEDqAiQ2rPXf CPgoZ4fmahNihTDmXDXqCP f9eP29EJRswF6ttQKlEDjo rvWsMmM5UAlkGEBfFiJ3TY RdhFDuGAHjZ3xzYGRqQEja DYJlFXnkmCZsVEZ9mAwrk6 I2bMPhrSNghMlqXrIkUbTm PzWRi8GuBBn3kTqxS7NmBQ WuVqM9gLBoNIJfVFboJXLw KOYpfnT9kJ16VWttnbH1sX Ppk6Onh63gz273cG0hrJOz DBJ2KHOzBOEunARsPSPaDG F4EARjgJUuY0yiWPTuLY0k qrnePAwsALurLOZycWC0JM TkxCAhR9BtLUIlLQyxMPVe xsr5CrIvUa5hkKTaqJuxAR lak0jbj1wenAYrBye3STWp DpUwJhwiIDvdg3Avm4xsRK Enox4vHQM4cYVorWayo6Z9 pSDtASZzmSSuUJFyPI7jmD SvXDTicE3lsstsCQVwJzDf ddszNITjqWidnqDjAw7dkG piPLP0VSpaN6rvoD3mLaG7 EVrqE3zeiK1fCVc3QOpgLM LgtXH4svV1FMVkfDMiN9Us mM1eMMRhPE2llec9l8wvXZ K9KWjeFIBwHyF9sbE9AYMm qLCxXGRwhGrmXTpqs545VY D3SsBoPPCom9PjJ2YhdLyc A16geIpmO31uXBIyyAfatK 9usCfrqY5eHhYvQkFfDWwi jEhtBJ1pHREeL7zyvABnMW HiBCYyA8veWmTvjJ3crKcl DDnzlpOaPFJmHkr6ZFFxnI WqPXJlSmg7EZAzJNMvG91y silqQOO4fF8pk3xec0BhDH exUQL6ZPWzn98dZKpvcnG7 NTpeQq13NRcaUKV2KHxdGQ J9fQ== COMMENT (test code = j4wrgXLsVFDdlMXsUWLdU9 3359) j3xQSct9F9nvmkBB2qnTrs gEc5aHsePQOdhiQ0nCJtUA tat9lwEVY1z2hqnlrzYWPm GVfmCi5nbBDzjOwqRpIoAL EtBBi6uN93WDLztY7qjJIe IDtccmVkMFxncmVlbjBcYm g3JDB0yZakDEWxjvrbWcP6 SIqbJXOtyhwdMQl1GZykXG EvhHT7BUTtoFTqA2OzZFPk TW1sbgj8MXX9VTvsJAHbCi Y9PBXdoLEqAIAjyBtiUDhk d656AJX0AvBqLBIlxbHcwA lxnA6aBkLcWMzjJfVvPRyd CCZocbZsNLQ5fCMiQhbtoT W0FWRts1cvMDNeEJKjePlp ON05nDvnScFgA04iogOvVK 3gMWKuioowfeOcCO3mjaTl zMcoUGDuysFgZ1v1uBQzy9 g3cOOsPK8pVOVwoCNouTJa QCNaAlRvh3fkLYVuVKFgoG TsdrbbWKtyEnlthL8dmV4p eSBpbmZpbHRyYXRlLlx+Vm MeeMVqMGnqZWO2xPqdDXvy G5euenFqKUPlHQTwNDBlTS VtYmVkZGVkIGluIHRoZSBm aNUpm5YlVWW1oz7dUSMxyi Pif3ZtZEGdj29hmORncS2g pONaKLM2iIcbBMceR5IelE MuXHBhciBUaGUgZmluZGlu T4BxEFEjXLWbwtNtki4pbo jdMa3gORRzBYjrWhzfkNDr dSnoYxJgsDE3TEenKYGlfp 7yCAHbmH3ajSRsEBgaz1G8 ITEiLDCbVAFjlcy7oJKhNR UgFVlxt7VirhClOR8hq2Zw EvNmkOQaZEDsfjS4qXamWQ OauQPuHE6hfIBzKGGqycVT Fcyph1SyACP4wCZomIIcCD djbC46IIWgrdR2mZFzgEFx o6YuTIzsx7Ugy12ezGDsG2 Gcl2yeKontgZhmgyDdd5Ql IX1pcuWuolRerPZ0rI5ykF 3anARkSH2keIIxACPpEJbu COJxr4MebIAlciHgivGvDQ I8ZUEmPKLagrTwopJgnWln qvzgb7J5UQfhwf8czPGvqP == CPT Code(s) (test code c5scuDMnPSXbqVUuREQdV7 = 3357) fcfdMwJVBcuHKxJ9Avaqvf LDnjRP1kHM5wuMekxUUhwC LhGWHrCsKfy9rnz811vNWu f7vaTTFRIVjvDIVJLXb6d9 poLMLPcjnkkUb7nKfkB64h y2B7PlyfD73phLAwUVZ5XD UmYPHtsOPvDWOrMYY4TIJg eLJdM7tsXWCnFF7sjhupMM qmJBlhWOPsdIU5LBLdaZEq Z5YaGPTkIXsgYDTsmyf5Fm ArVg1koVDmoZvmOOxoJEBo XHBsYWluXGYxXGZzMjAgOD gzMDcsODgzNDJccGFyfQ== CLINICAL HISTORY (test a1lsmKEdEHKisFOmKVUrE2 code = 3356) laepJgIZHwtQLzV6Nuhqlg UPdfVD5wMD1lcVmxhPJltI HpCKHxZmUda1xjl521iZSa g7cjZSPHqumqfPz5yNiaC0 4vz7J7VsrwQ26ryFOuKUK1 FZOmCXDltFXmDXYhPHC7QI TllHCaV8yuEKGxBY1mvobu DKhcIDpsOGWroOD8NKGcuC FnC0GfKUZxUMuuDVFvnet2 EvXfBf9jvGQslRawWTpsNS JkXHBsYWluXGZzMjAgUGFu Q3IvDBEnHyHdQSEwSVXbbh 0= GROSS DESCRIPTION (test k8zosTCiZRUluOUZBUKqWE code = [id number]) HiHI7skFwskEi1rGkoOBUo cwG6bFWsGNytq3wdIGW6s1 ixazMRPcofWPLxTH6jVRra GHWrVO4lBeJyIGTqHyOmBA BhcGVydzEyMjQwXHBhcGVy gUR7QVShGM8kdtwwMHjbBQ ycFJIfbzQ5ENSchGXoF7Bo VECqFZ2bkcqcDBG2MSAKDl bsKt2crKHlmFqrXwTnBlXc YXJzZXQwXGZuaWwgQXJpYW u1rB4MEwjrU28yb5A6Tfk6 DNBgFZElN9XcQC5uWQHcbD IsE94LZwkvEXD6XQPQDjmu SvkkzJirc9RorXGzCNKeJO xcaWQgNTEwMDAgXFxkYiBP GgNmBtVwTRByMmO8YPQrYQ j3VLfrNuWUYIM6VOHeYaVg TFn2XWpqYRtljYUxZDOpZE JuIDKxQLtowfP0u0mbUPBx pKIjFLS0KAvsl4dhHSnzBX X7UVWcTtQjDZSeBC9PFlKt NIFsWNYqOlu2JgS0IQd5WT IXPbUbVlPaHvPvOIY5VmPo GYe9BMl7KAgVZjN5GtF1Gu HeIvYoWHC2SeVnHKt8DRUe XFxzcyAzIFxcZmwgXFxuY3 1ccGFyZCANClxwbGFpblxm czIyIEEuIFBhbmNyZWFzLC BIZWFkXHBhciANClxwYXJk IT8YKBQpKBanWPUzThNpnH DtI4liUULdH45zl9KJu9Pj PL0UJKj7tlXupmdejI4lMP LdzdRbZBijL0NqQTBwXoSi NrMdAKe3OCDonB8dKe3xeW IqqV7fpYHzAOjbTVY9xUNt WUPrOIIzEUUpXE45WCpLUJ MgbmFtZSwgbWVkaWNhbCBy ZWNvcmQgbnVtYmVyIGFuZC MqyXsjKdZpJKy0N8CryuNe ZWFzIGhlYWQiIGlzIGEgMS 80LRwkGM5xCXpwCI2hDRDx TPMyD9YcJ1T6FHDvNdX2NP 0tafFeIQEwStGehRdam3Dc YDYzqmIuHXU4rIonfEWuxr Dly9PuoOn1hCXgEEajIVSh lA6raH1vCLHrmWvaPHGlMF s3YyDqSwasMAVeOPmxxRZd LF1HWFNgTzQaHXQeX5wyIY WhJK8NHTPyPQilkiMdHKmz mSO7mmUBBU6wzs9REGPpeN MBHJU5OB8zEKeuNXPqO5Tw F4UhkyC8b5hzdZfbl1PrpR SvDG5okAOuPG2APFCjykSl DQp9 SPECIAL STUDIES (test a7iodBUbTQHck5qcDKOznH code = 3376) FuZzEwMzNcZnRuYmpcdWMx XMprebZoYChgj5GoF6TgIg AwMFxhbnNpXGRlZmxhbmcx JYJkKCU4zyVnTLIlFDvuEL LrDJcjYs1guVLweGtzXtJh GMUva3bltmZPlxngsVb9j5 vwHMQjXhL5jWWdXVoaE6ez peThwRHwL1KptPKxbGt2p0 csTeSiCnU5fCQkAOnkQ8nq giDgbKEgODUhNKp6aG93MG GdnG4unAKzORrwngEfMhO9 YHsgOHJbRmO3QKGnlIErBE AiG1zaQNHfQPgvXHHiWLng uPViEJV9rLofl2N7tFTphC TxjTdsFrOiGrDyRdEOv5Th SYc2nPcrW7WdVINePeA8kO QgUGFyYWdyYXBoIEZvbnQ7 iYeqhjVoz77bpMVhGCNtEN ErJsBfcVnpSIZeRXBHg3Ir hCvfSWB1jKf7yTgxBjesDP G8Phb1BV3orv58wym3mFdj FJSfhkynObO7NIslLYOmws toSWl5SDdjGFVnoFA4FQOf nMLpQ4NbUTUmSP8yrjz5RN I2JJttPAEvClM1YVPrnLWg DLSrhMmvSXags649IFS7Kx ZzAJ1vJ6Ghl2G7dH8czIUt CQAzuDMdCeLuVYKasa3boM GmYBduh4SaLFL6nhP8jJDk uROnLTQrIE47Yaatx0OaKk cxi4QpL88tfVB2XGwfk5vv PM3rLsQ6hsPdMVnrp9kjpC 7uQqU7QDdrMQ1eUA7nSTIp vV5bzjtoLDZeNqQmtzvtMV XccTbyqjEeFh3rqAbwWWT7 VOnpY7ogcE8vZaC5DQosG0 fswZ8rOZm1YLzpuQI8GAXz mR5nWX8xbalgy6rjEFcpMU jtRLQdqoH1jwS7JJQoqROx D9SkjK6bXMStZE9kjyfph9 xkZWL2XFejEXYjKUA6QhFl FPHmw5Gdggz0FwUdj0OnzR FbWCaoK87tv922FDZwiuCp O0nqgMZwzcrodWPjlgsbLQ rmonX6OKYsDSMoYHrzVCFh XGZzMjJcbGFuZzEwMzNcaG ljaFxmMVxkYmNoXGYxXGxv F6bqTsTzC3IqJUZsUpFjSP uuEVfdwXUopIMmqRW5dU8f HO7nKLKmwGVkF2HgRBCzjo NhnZYwJQR8hAXptUZbAC2g CFumnPZbm9wrd2SjL3lbqB jgjOC6SZ9pLJSiGCUgPPqr t8HejM0dVuzwgSLqhidpWF xmczIyXGxhbmcxMDMzXGhp M8qeMaJwUAXalQulXOzlu4 NoXGYxXGNmMlxmczIyXGx0 cmNoXHBhclxwYXJccGxhaW 1xGbGnIlNbHhkpWQ9lIHVl Z9fgaRXyMJZlWBLjF7oiXp CvjB5huQvbCMlzKoPxWtEm NoUBm684fc5xURFwtJEalg PEkNJztW0kRFojUQrwSOrm sTJzSHwpu6nrPJFih4k5rZ AmCJAdgtMav1cbMEjeboUh KGIosKLlrKFnICNwz18kAN ggkYadoWjpRZBls9IamSqy y7AqJuHiRWhjm9IgU44kvN JvbCBzbGlkZXMgcnVuIGFs q37vv3kpREVaViU5cRJdqW B2dUEzoENeg2UejXjeOAMn e5lbBNDaae6duyawuDAeh4 LanU4scyjfLYoryHOnwvAj JOQfa3o5sNIvQLLiCNPbJE eeeRh6OZGrf999mi4crjZ3 yWEbMIY8VLofDXUqKGXlwc UgZXZhbHVhdGVkXHBsYWlu XGYxXGZzMjJcbGFuZzEwMz NcaGljaFxmMVxkYmNoXGYx IHpqC5rqBeBlP1CrENHuUg SelGOgM7rqfHEtCHImIGdy XGYxXGZzMjJcbGFuZzEwMz NcaGljaFxmMVxkYmNoXGYx MAjiZ6vtLuXcP1YeCHObGo IgIFxwbGFpblxmMVxmczIy SMsmkrarUIZkVSdcA0diMq LgMISfmUpkDKzso7EnFCXo IIPgEosqwqSkIIi4lzDbIV BhclxwbGFpblxmMVxmczIy TYcathztUCKvGHvvH9inDr HdCZHhsQmfCBemw4GpEXYy XGNmMlxmczIyIEltbXVub2 tyg6MiW0qmdCcwhXH6PRXn U9dkpWDbpEV5XUX3oI7sFB yfllWoRZEda5CnPBEfXMVi EeK1tB3hMCW3FlDCgFsqHL BsYWluXGYxXGZzMjJcbGFu ZzEwMzNcaGljaFxmMVxkYm BxZTHjMKvmN7rfQdTnD0Eq MJOcNjDugPtbOErzAQl7Rj xwbGFpblxmMVxmczIyXGxh iehbTBZkGMojF6biDbCxCE HaaPfmOJlvz9QpZJIhWHSh MlxmczIyIHMgTWVkaWNhbC LLRU95XVAlJVTcgQylcA3i nQTKBFFcstN0w2F5HUpmJJ VgCJj5VXkdgyTuCKZahW9v LFMsNE2pUVm6pnQmCHWeo8 VfAT2fEOWucIJmUMQ3KFEr n6GiP3Zgl0FxGUYcRBLbnw 3bqaJaHxYTwBDoSPMdvt34 QESbOX9rH7imCUPmAMJvxy BmsPBix0RgLDTpfHT0dSVf XQ2QMmEGb64jOHIqWJOLkr RfMAHurJwvwOH5hiT8wO9g LiBUaGUgRkRBIGhhcyBkZX Dtuv3okxDqIBVfENDdw7Lt nSVodTObhmLvI4Hmu7KvPH Kqpy88IYsdlTYuka38DG5n T9Iya9CiyL0eGGpaNZQqv6 HewQYjfASkRYZjf1ZaD7ae bzcvNRwesRAazV7eQZMfYY n0XWIxa6QkYGQkp4WyZcAv egLeJUHgAKQoYYKisX34KI Y1kIjvvAvgpnIwCW6wESNp msLnDZGaEJHkpY9pADhujl BhSXJlcbH9b8H7RRicQPNb igDzVkzsPFA4vjSnvcZ5jK YhP7exjsqfPUxjBGLzb8Hh rH1tzANGrCJkd3UptQByvK WNhOYsVQ0fuhAlHF3rZFK7 ODggKENMSUEtODgpIGFzIH D5KUynCdbgHNE3dnPxMAOc b3ClVNorB4gvT69egTnctC n5sREfzGbkaCTuyAFmPWQq qcL7p5B4NTCmy3GfszdjXL BsYWluXGYyXGZzMjJcbGFu ZzEwMzNcaGljaFxmMlxkYm McIQIoTWatN2auBeRhAbSp PcusQNQ2gK== [facility] [id number] 09:45:56 Test Item Value Reference Range Interpretation Comments Case Report (test code Surgical Pathology = 104) Report Case: [id number] Authorizing Provider: Konstantin Morataya, Collected: 12/02/2022 02:22 PM Ordering Location: [address] Received: 12/03/2022 12:07 PM Service Pathologist: Ivonne Guerrero MD Specimen: Pancreas, Head, Head of Pancreas Mass BX via FNB DIAGNOSIS (test code = u7qzmRWsLQSed5nnZWEnyE 3220) FuZzEwMzNcZnRuYmpcdWMx IHtccnRmMVxlcGljMTAyMD gfJW4dsMvpaEz2aUeiOPRs ffV9oZSfPMhyq4wbOUJ7f1 ipewzzFZZlKEjjQc2gnWGx qAtrDgHwEGAiIVq3rH69FV YztN0fqVYiVHknlpYmWGdm giRxklOrJuy5CZV2eWzbVR RbhjnlUqZ6UVvpGYZucrkq EYy6VAmwCPFvpYK7YZQmzC WdV2KlRXZxVD1iiav6NVN0 SObiOPYsBtZ2AGWhrHXrSL SilErtCYovc065QOE1SfWb CRUpzhUnlJfahI5pFxFwYC UGFyXUUA7FOiELBExUGUtH SKOiFBFRVsjyDIGwO1CFED NIGC6SZXADYFOBR6NUXCTV W4HLZLnxeBBwQHRxvgCgUA GkAHJRhQCnvBFbz0RiSIHf aiGyBKHlu7GqksItdx8xAE hqd2SbQVCaeH0pcgGrhPMj MZVzGOouGTB9f3kblOMkVW NzdGUxODAwMFxhbnNpXGRl GhybhymeVKUmFBD7wjCyIX LsGSkxHWJxMZdzYq7rjAYd lSmjAbHaYXXsz1rtzjXWaw lijSj2d5etIAVxBrW6bQAj ZBcbC8xtzqZadHGwVUNbRQ p2hO88PGInmD8rsGCrPLdy ccAuScZ6HIpqQSCzAlQ2HC EzaLSsXPXzQ1noJQEvBLci ZOPiKUkmfZNoCVZ7iVtic3 O5kCAitGGfuOiyNdRpPqZx MgNLf0OfCQo9wEclI6ScWC LgZrO3jIGuXGCnKZhpDCWg QOGhljR6mB14EDkodzX1uF Wwb1Kvj08ut332mK5ngDTf QZY6QMNcCTXqyBQfAIRvFE N5JMFxoBDpB5kzOADuAB1e knkrKDwuMAqaSFVmqQM0LD XzgOBgP6KpAHKpGYetCMGc zcz0MqGtHw1ojUQtvGqeRI qoo2fbb3hhzVVtCil0XCWv JtOtAcjtERyxm5Yht0tpII Uvaa9lRYR6eCOgoHyog4B6 wGVdUTRsaCSfBWOxBE0edB NqZUNafJ3okyzfVEDkGwZa ryyvKLPqdZtxhcQgAb0uvT acCEA4IGglR5pndP6oWsB0 TYtkR1jkoE0hDFf1IQvkXE CpcIZ5rpA5IUFrwQOqD5Uz lA6sZGKbDR3mzgy4l5cwMU E6VYqiMGCsJhS4atK9HMLj yZYjQINmhWgsXNwao194BO U7BbKcDHUit4YeF0ZqcTry E40clNyrT02cOHAfvFuynN 6qtAtffZ3rJkAqKsQfHLaq zMqbBJ2oXPPjC2umrGPePL OgLHQmO7lxHaJjlF9eoXtn WCkyhhFnPDHiOyj6ZJHnxP PrVIEqBvj5KQFrCWYsR52p cvsiHPV3qM2cg7cpl1ZlXH jmDDQ9JVDgw80zBIwcvzP7 UVzvCk13IYasCSH4PYmtDP J9fQ== COMMENT (test code = k7slwESmVHPabHLwORIgU8 3355) d7nDEdb0O0yoitZS4ruCxp kKo1ySyySJYqmuP0aXKlYS vgd5qpTML0g2iublzhIXJy MOsyFr1yzGFbzPiwMlNnHL FaJHc7jY55PNLxqG7emXNo IDtccmVkMFxncmVlbjBcYm q4BYT7iEtlTDKzwtlbJvZ9 XGrxQHZthpiiUXg7LQsnUT FrxNX9LRMqsNSpZ5FgITBw LU2nqsx9IUF3LHhmZZPsDv N7ASQsnLDbDUCojGfpADnq u768KVB9AgFwKBDaaxWnlH foxZ0nHnNsQBttTjJxUJsk KUVfwgTrDWM6jCRcVubcbB U7DQVje6evGSStOAQxdOru GV62gPoeBtIdK23ujnSjVW 8wUWCibsqgueSxOL8kcgSf lQdoJOEcloOkV9k7zFXok1 d7wKHzZI2tIEWdbJFeoXRo GRXzJpXfj3mzVOWsCKKbmC SpfqgyBWixHtlseZ0xzK5g eSBpbmZpbHRyYXRlLlx+Vm JuaJPdJWawFGQ6kQulCPjr F3uqiaDiMVSxWLZwHTHnKL VtYmVkZGVkIGluIHRoZSBm sMEal3UhCDO2mr4hEJTweg Bzo3EdWKVzs14yuPNlsI4r eCSoSEM5aKigHDysV2RceX MuXHBhciBUaGUgZmluZGlu X8PpLCDvZYFbyvQbfh3pxx erQs7yFCAnVTjzBstdkSPh nPkmZyLnbPZ9KXybONFmfd 8zAECanQ1vzREeWMbin3W6 TBKlBYHrWAJjozj4bZWbPF JxNNwci6YwyuPoQL8yv2Tz KzVslCKsXYVfaqO7nHynFZ RkoFYhUU1zyCOrSBTjjjUV Xeysl5IiKCW6zLIbsMIbSY nsjO92HNPuoaI2sCAyeEOl c6YgMPstu1Enq01yiFNaF9 Txd8nsFtjalHfxbmHlg9Gr CT6jomWogwLszZC6oU6xpF 2hhTHkPS8fsQJcHTRlALud MFTrz8ThjFCwqkQvetMuNT C7ODWkXGTtuwRqqbWnnCua hpemk2U6INyngf3rcJEezZ == CPT Code(s) (test code r3fbhSBnSHAtdYGmSMZuZ0 = 3357) oqldBtIJWylWBiA4Rxztif TIocDM1wRK7xvVtpaIAojI VxNVYrKcBqp5lpp207xHPx r4xeSWMKECzpTZSXCFl9e2 zmQAXIhksciVh6zIntZ30h t7X2WhipB04uxJTvARK8WJ VoMKVryAOjKQXwQON5LJIq yKFoD1bqRKAzUR9jpkmvHX tiGBojVHSwoOW4XMXloPQb B2HrGDXxXDcjTDCgxcn2Kb QsMn9yuLDeaAxkKEshGPEl XHBsYWluXGYxXGZzMjAgOD gzMDcsODgzNDJccGFyfQ== CLINICAL HISTORY (test a1jvbGJxBNXbkQRcPGExL4 code = 3356) mukuAuINQesNCeP1Lypqmw REmuJQ6wOZ4ngLptrGYajZ CnCKGrZdEnc9etp831mQJb y6exTSDZtujssUs1xArdW3 1fw6O1SgfxM24ubCEiUVZ3 ZROqNSEfvKRaJIHeVHS0PJ UzdHLvR0bpXGIwVR1dnwgl MEsuNUekFRQhnBW6XCXcgD RiW0UwJJZhZUzgQRIhzwo6 YhYwVa3xbTCzlHxxLLfvIW JkXHBsYWluXGZzMjAgUGFu H8GdCHJmNmTjARMvFFUeee 0= GROSS DESCRIPTION (test r0oqoDDnLABsmUZVKHDiUC code = [id number]) RwVK2edDntbFf7wRkgEFQi wiQ2xVYeJQehv7sjOUW1i8 ljcsFJHvagWXWxCC0dJEgx ETMpRG4oUbFjDNTyLkPaJS BhcGVydzEyMjQwXHBhcGVy nTG3ZIYiGM9yjrfiFFksCT yrDJBkxrG2FUHxgLRyS8Gt EHYiIV9ybbeiNMN2URUWQk tnTe9xlJZhpRusQpTpSaQc YXJzZXQwXGZuaWwgQXJpYW k6pB7OMmywJ81ax8L7Kwp5 EUXaWPNbK9GkHH1vRNLxeL VqT03UCnbjWOQ1GBDVIdvg PphxqIete7IasMJzTPLrNG xcaWQgNTEwMDAgXFxkYiBP TrLsPsOnQWKxZjH9XIXlCC s4YOvbVnRGVZC4NQQgDdRz JSw4NYybTBzebMNoXLLjIJ IqZBKcKHziuaM3d0jbIVYv wUExBII8PUhnu9jwQAnuLB D1GRLuTyTaBNMvCS7KPmSu LXVyRUNiSmu9PqP2SVh8SC NBHzMvKeElBnGoTXE6ImUw LHu3HOx6NPeFPiF0SyR1Mx CpJvLpXIL3UgKdWXk3KZIy XFxzcyAzIFxcZmwgXFxuY3 1ccGFyZCANClxwbGFpblxm czIyIEEuIFBhbmNyZWFzLC BIZWFkXHBhciANClxwYXJk KD7QZRCuWWiwTSZgAkYqyX KrZ3tvOCXgK17ts9URv1Vb XN1IEGn2wvPdihptuL4xCB YxfxWaPXkgP3PlBTOyWpUm DyIqOGp3KTZmxA7nOv2yvA QcyS0htNWoSErqWZI2nBIq DFGdMVBvKZVvOR27TWjWAN MgbmFtZSwgbWVkaWNhbCBy ZWNvcmQgbnVtYmVyIGFuZC CmuBcbSsJbOYc6L4KzeeCx ZWFzIGhlYWQiIGlzIGEgMS 13GWvsJC5fORoxNB0tLJZe THJuB3BjI9X1RESqPyD8FX 8wnpJjGLMxYrJrnChau0Ut GHAfikBeAIB6zDpmnRIloz Umg9FzoZm2jARoNBcwZTJc cT8yoF9pHGOlaKcsKNTtQU o8WcQdKklhIPMfXRnydAMs SK7ATZGvRgUnADUiN9bfKE IbGJ4MUQFrXJmwytLiEUzr dLG3dcTUHA5axo1MJISrsT KICNX3YE5iCYgvWXKbI1Kz F4VkcmP8u1dhgTgux6AvhR YdKN5mrRZnJO3GXDEiwePp DQp9 SPECIAL STUDIES (test y5ucpCMtRUJzz8ndESMeiN code = 3376) FuZzEwMzNcZnRuYmpcdWMx LXnazsUgXJket5ScM7AcSd AwMFxhbnNpXGRlZmxhbmcx NRVtLPA9rhZvMVEaSGjwEE TdSNzyUe4vnUYllMuwYhYx WEDig7snrsKYxqsnlOh4u7 ytQMDmZlG7sUWzAIecO7xw mtBdbIIqA5GgeVIxlMt2t9 ukExEqEwR8aFLdXRmkN4fx qkSgzQSjORQjFFv4xZ82NM RtzM5qlBGvKNklwjMdVcE8 ARttZFRvDyG5BOGbaWCzSM HeR2wdIYRxSAesQWLrDTsa wXTdDZG0nWjtf8A0rERhmZ BlnPfoGsCmEbJlSeRGk5Ra GEb5jRhvN7PgOLIyWvS2hK QgUGFyYWdyYXBoIEZvbnQ7 vWjlfnFvf50wbKWnWWTaHY KlRgCltWnaAMYzKOMWk0To vJxvPHO7wTh5kTdeScawFC Y6Piy2FJ9jyq84ews0hArc OTPcfcofZpA6STjtEVOcvy gwOMv6MVqiMUXgiHW6QFHj nDAmF8TiSOOsJW4eqtv5PC Z4ULwxCRWdEcN0MHQapROz ILMohQtmGJuvm741TDV1Gn FtDF6kU7Qgi7N3lP1uhJWn WPDsaEPsBmMtUIFlhg6jmR McUHxql3GeNKJ8dsO0hGDf lQOcEYPmXE22Lpsxe4JoXj uiv1FkO43yiKH1YPscd8gm YR8fZeS6gwGtTYgcv3zaiL 2xMgP6DBanDP4jYL6bLSUo pY8zbbzpDOSiJkJvmxyoQQ WtiAqdeyRvEe4wvJtnMWA9 NKcuH4atzH4qTwD7HNexH9 ghtW4lRIg9RRzmzVH2KGRc cZ2oKH1euvhkk2vbXZyrJT beFNQytzS9drT7ULQhqDBk H4XpgP8lVDMkWB7aacrzj8 zuNKL3BGpnTCLdRGH3KsKx UIRzp3Skzjv0TqLbr1QrwC BpNWisI00nh074XUWskpOj U3sxhNRlmmvygNBhcqxsAA ouhoC1RGByNXVrRNxfUOLw XGZzMjJcbGFuZzEwMzNcaG ljaFxmMVxkYmNoXGYxXGxv Z1heOvQfQ4YpVPMgQoHpWV hfHApjaZNkfNHgdDS1mR7f SB2dUMBbmXEpQ0TzKTZvwq NwrJWmWEQ0mRQrrMOgZS7i LDlvdYHqu6vxy5YuU2rcuF fmqEU6TQ5bZZRuTMHbUPsz h3PpxN8sIinnkMDloegvBW xmczIyXGxhbmcxMDMzXGhp C9msKgFyKMZcsWopQVnci6 NoXGYxXGNmMlxmczIyXGx0 cmNoXHBhclxwYXJccGxhaW 5nFjSpVoSnTrnbLL8lZUDg T1npaRXoDSSnRDNrA1qaFy QcvB5azIomOUawMlPyHyLj YtYSr446vu1uLZKvhUGuiu UYeCUyzY6hIStgSOenHNue oRPjCDlez2gyEUPvb8z1dN TsLAYjzuWwq5akQEgsmgSn ABCsyQKwbAPwEEJhv82nTX swmHrleUnvADRrb0HzlRdu x1TeYhUnYIcwg9CtJ22zkF JvbCBzbGlkZXMgcnVuIGFs r80rx5snIOUpXeK1vKOgpK O5mMBygFTog8DuiBhvLLPl p2fyIICsio3wozxwyCUbb2 VfvD9wqinsCCgdtGJcqzQy GQWyu7b7bVKmJENzTRUlXV bofJd3QBJck628zc6cmlU5 rKFoSYQ7FNfoTQOlJKGvej UgZXZhbHVhdGVkXHBsYWlu XGYxXGZzMjJcCHRISTUS St. [facility] CenterZz[facility]z NcaGljaFxmMVxkYmNoXGYx AWjyW5lbCnDhN6PoFMEtOz KcxUHpP4gnnAQfOIPcPQqt XGYxXGZzMjJcFuZzEwMz NcaGljaFxmMVxkYmNoXGYx JFhrO9hpCkEeW1AgIFSdQf IgIFxwbGFpblxmMVxmczIy YTcuihtzJPUsJFjnZ8cwVn CpODXppOvhROzbg8XbPLEn FIByTvbudnEmXEv4bvZsHH BhclxwbGFpblxmMVxmczIy PBomicjrUITsFSpgM8yqUf KuHOVscWgoPRweb9ShMAFc XGNmMlxmczIyIEltbXVub2 umf6JjO1eitCuzuYF8RCQl I8ojtHVqeWC6JRX2hI4lFK mnudYmOKSjm9NbGXBeWXPx OyU3gE4zXHR0MxEVgJzgEK BsYWluXGYxXGZzMjJcbGFu ZzEwMzNcaGljaFxmMVxkYm PsJKAlESqbD3lqBcAlQ6Xf AWHvYcVfmWneIJmjCHw9Pl xwbGFpblxmMVxmczIyXGxh ddbuUYPoIEbiV7hmDzWxFZ XqfCicZOpww3LzAEMvZTJg MlxmczIyIHMgTWVkaWNhbC ZPUO16QHLwJKAcgTkbmN4e lPJZNISwspQ5m8S0PAjdRH FrEXu6GKyztiAtVUTovV2q GQKxXG0xEFf8usPdGMXbn5 GiEN1zZYFxfYIiUZQ2JMOi p4JaV9Utd6MsCUNuQRWjal 3algCjYvCHxBWvWSKmxn82 DFFtYL4hD4fsRJUjENAqlc ZkaBSen6IbUIFcoYA2qSSn UL4MWqLBs69kPUTwOBHDop NwVCIpoUorgKT1stQ9pO6l LiBUaGUgRkRBIGhhcyBkZX Ojqi8ujaBuRJGaCKApn8Dn qJWonBWuojKzX1Chp4LePR Hkeo01MMtbrAEhse20ZH7r X0Ysf6DoiD2hJKleDKTzd6 DlgOSndXHaICKhj6WrC1da ionfJGedjEZuzA4tWAMzBB t1CXEak9NrTGRsn5PbNjLk ceMdQQOxVIJaPJBodR36PI Q9sIfvhMedkaSfCI8fKFXf fpStLGTqKCLebV5sDKkwfp LuAZLnteJ2o5G2QWzjGXOp mxKyKpncVLV8cpChvuS8mO LhA1qfjbkvEBdjEBEmu9Vd sP2maPCNaQBia1SqaLXttO VJjIEnOB3qenPyUA7vEMU4 ODggKENMSUEtODgpIGFzIH A5DYiaQawkREN2tpWzOEDc v2NbQIndH3usE44rfLmjaL r0lMRpxUvwqIRqmXEgSZSz pfS5m4R1ZTNel8HkdfqbSN BsYWluXGYyXGZzMjJcbGFu ZzEwMzNcaGljaFxmMlxkYm IaYDCiZUtrJ3daQkLzSqYs WobuJJC5wE== [facility] [id number] 15:39:31[facility] 1935 Sex: MMRI [...] Signed By: Ellie Sanchez12/07/2022 15:42 CDTWorkstation Name: [id number] CHEST WITHOUT IV CONTRAST 2022-12-04 18:08:35 [facility] : 1935 Sex: MCT [...] abdomen: Please refer to dedicated MRI abdomen performedsa day for complete details. Common bile duct [...] Signed By: Zonia Mccoy12/04/2022 18:10 CDTWorkstation Name: [id number] CHEST 2 VIEWS 2022-12-04 16:52:37 [facility] : 1935 Sex: MEXAMINATION: XR CHEST 2 VIEWS INDICATION: MRI screeningCOMPARISON: May 28, 2020 FINDINGS:LINES/TUBES: Support lines and tubes unchanged. LUNGS: The lungs are moderately inflated. No focal airspaceconsolidation.PLEURA: No pleural effusion or pneumothorax.MEDIASTINUM: The cardiomediastinal silhouette appears normal in size andshape.BONES/SOFT TISSUES: No acute osseous injury.ABDOMEN: No free air under thediaphragm.IMPRESSION:No acute cardiorespiratory disease.Electronically Signed By: Tyler Rossig012/04/2022 16:54 CDTWorkstation Name: [id number] COMPREHENSIVE METABOLIC [id number] 04:44:45 Test Item Value Reference Range Interpretation [...] not appl icable for dialysis patien ts Powder Hand ID - MMSpecimen moderately ictericCOMPREHENSIVE METABOLIC PANEL [...] Specimen moderately ictericCBC W/PLT COUNT & AUTO [id number] 13:28:44 Test Item Value Reference Range Interpretation [...] (BEAKER) (test code = 2801) BASIC METABOLIC [id number] 07:06:25 Test Item Value Reference Range Interpretation [...] De scription 1092) sq m Result G1 Norm al or high >=90 G2 Mildly decreased 60-89 [...] not appl icable for dialysis patien ts Powder Hand ID - KYLE Calix moderately ictericHEPATIC FUNCTION [id number] 07:06:25 Test Item Value Reference Range Interpretation [...] code = 79 U/L 6-55 H 347) Powder Hand ZACHERY Calix moderately ictericPROTHROMBIN [id number] 06:45:01 Test Item Value Reference Range Interpretation [...] (BEAKER) (test code = 413) BASIC METABOLIC [id number] 07:06:00 Test Item Value Reference Range Interpretation [...] S NOT APPLICABLE FOR DIALYSIS PATIEN TS. Powder Hand ID - PINKY [id number] 07:06:00 Test Item Value Reference Range Interpretation Comments MAGNESIUM (BEAKER) (test code = 1.9 mg/dL 1.6-2.6 627) Powder Hand ID - PINKY [id number] 07:06:00 Test Item Value Reference Range Interpretation Comments PHOSPHORUS (BEAKER) (test code = 3.0 mg/dL 2.3-4.7 604) Powder Hand ID - PINKY MHEPATIC FUNCTION [id number] 07:06:00 Test Item Value Reference Range Interpretation [...] (test code = 49 U/L 6-55 347) Powder Hand ID - PINKY MCBC (HEMOGRAM ONLY)2020-05-31 06:15:00 [...] (BEAKER) (test code = 413) BASIC METABOLIC [id number] 06:50:00 Test Item Value Reference Range Interpretation [...] S NOT APPLICABLE FOR DIALYSIS PATIEN TS. Powder Hand ID - [id number] 06:50:00 Test Item Value Reference Range Interpretation Comments MAGNESIUM (BEAKER) (test code = 2.0 mg/dL 1.6-2.6 627) Powder Hand ID - [id number] 06:50:00 Test Item Value Reference Range Interpretation Comments PHOSPHORUS (BEAKER) (test code = 3.1 mg/dL 2.3-4.7 604) Powder Hand ID - ADMINHEPATIC FUNCTION [id number] 06:50:00 Test Item Value Reference Range Interpretation [...] (test code = 54 U/L 6-55 347) Powder Hand ID - ADMINCBC (HEMOGRAM ONLY)2020-05-30 05:31:00 Test [...] (BEAKER) (test code = 413) MR, ABDOMEN, [id number] 20:04:00Unlisted Reason for Exam - Click Yes and Enter Reason Below->No [facility] 1935 Sex: MFINAL [...] Marrero MDReport Verified Date/Time: 120:04:18 Reading Location: [facility] C013Y CT Body Reading Room [id number] 06:13:00 Test Item Value Reference Range Interpretation Comments MAGNESIUM (BEAKER) 1.9 mg/dL 1.6-2.6 Specimen slightly (test code = 627) hemolyzed Powder Hand ID - KYLE [id number] 06:13:00 Test Item Value Reference Range Interpretation Comments PHOSPHORUS (BEAKER) 2.9 mg/dL 2.3-4.7 Specimen slightly (test code = 604) hemolyzed Powder Hand ID - KYLE WBASIC METABOLIC [id number] 06:13:00 Test Item Value Reference Range Interpretation [...] S NOT APPLICABLE FOR DIALYSIS PATIEN TS. Powder Hand ID José WRIGHT WHEPATIC FUNCTION [id number] 06:13:00 Test Item Value Reference Range Interpretation [...] Specimen slightly (test code = 347) hemolyzed Powder Hand ID José WRIGHT WCBC (HEMOGRAM ONLY)2020-05-29 05:07:00 [...] WBC 0-0 (BEAKER) (test code = 413) [id number] 20:18:00 Test Item Value Reference Range Interpretation Comments LIPASE (BEAKER) (test code = 749) 36 U/L 8-78 Powder Hand ID - BSHEPATOBILIARY IMAGING W/ [id number] 17:32:00Unlisted Reason for Exam - Click Yes and Enter Reason Below->NoReason for exam:->chronic cholecystitis vs choledocholithiasis [facility] : 1935 Sex: MFINAL REPORT PROCEDURE: HEPATOBILIARY SCAN with Sincalide Infusion CPT CODE: 53249 INDICATION: Cholecystitis PROTOCOL: 4.9 mCi of Tc-99m [...] sincalide stimulation. No evidence of cholecystitis. Signed: Christiano Hoffmann MDReport Verified Date/Time: 05/28/2020 17:32:27 Reading Location: [address] Reading Room RAD, CHEST, 1 VIEW, NON [id number] 14:38:00Reason for exam:->for MRCP clearance, Pt. have a PacemakerShould this be performed at the bedside?->Yes [facility] : 1935 Sex: MFINAL REPORT INDICATION: for MRCP clearance, Pt. have a Pacemaker COMPARISON: None TECHNIQUE: Single frontal view of the chest. FINDINGS: Lungs and pleura: Clear lungs. No effusion.Heart and mediastinum: Normal heart size. Unremarkable mediastinal contours.Osseous structures: No acute abn ormality.Other: None. IMPRESSION: No acute intrathoracic abnormality. Signed: JR Verduzco Robert MDReport Verified Date/Time: 05/28/2020 14:38:54 Reading Location: [facility] ReadingRoom [id number] 06:27:00 Test Item Value Reference Range Interpretation Comments MAGNESIUM (BEAKER) 1.9 mg/dL 1.6-2.6 Specimen moderately (test code = 627) hemolyzed Powder Hand ID - PIAYA [id number] 06:27:00 Test Item Value Reference Range Interpretation Comments PHOSPHORUS (BEAKER) 2.6 mg/dL 2.3-4.7 Specimen moderately (test code = 604) hemolyzed Powder Hand ID - PIAYA LBASIC METABOLIC [id number] 06:27:00 Test Item Value Reference Range Interpretation [...] S NOT APPLICABLE FOR DIALYSIS PATIEN TS. Powder Hand ID - PIAYA LHEPATIC FUNCTION [id number] 06:27:00 Test Item Value Reference Range Interpretation [...] Specimen moderately (test code = 347) hemolyzed Powder Hand ID - PIAYA LCBC (HEMOGRAM ONLY)2020-05-28 05:09:00 [...] code = 413) URINALYSIS W/ REFLEX URINE [id number] 17:16:00 Test Item Value Reference Range Interpretation [...] 1574) Rare SOURCE(BEAKER) (test code = 2795) Powder Hand ID - [auto]Powder Hand ID - techCOMPREHENSIVE METABOLIC [id number] 14:32:00 Test Item Value Reference Range Interpretation [...] S NOT APPLICABLE FOR DIALYSIS PATIEN TS. Powder Hand ID - MAY CCBC W/PLT COUNT & AUTO [id number] 13:52:00 Test Item Value Reference Range Interpretation [...] PERCENT (BEAKER) (test code = 2801) SARS-COV2/RT-PCR ([facility])2020-05-27 11:57:00 Test Item Value Reference Range Interpretation Comments SARS-COV2/RT-PCR (test Negative Not Detected, Negative, code = 7277411) See external report for linked test SARS-COV-2 PERFORMING LAB [facility] (test code = 7102740) Negative result for this test determines that [...] of the Act.Fact Sheet for Healthcare Prov iders:https://www.[employer]/sites/default/files/product/documents/Fact_Sheet_HC _Smmteqvaf_Gmxj_KUCI-CdO-0.pdfFact Sheet for Healthcare Patients:https://www.[employer]/sites/default/files/product/docume nts/Qzzx_Blqis_Mzqsncvf_Wphp_JKOA-ZrK-5.pdfPerforming Laboratory:[facility], [place] [address]I/S, ABDOMINAL, LIMITED 2020-05-27 11:53:00Abdomen limited area? Add comment if clarification is needed.->Right upper quadrantReason for exam:->Assess for cholecystitis or choledocholithiasis [facility] : 1935 Sex: MFINAL [...] bile duct was not well visualized. Signed: Lolita Alfaro [facility] Verified Date/Time: 05/27/2020 11:53:24 Reading Location: [facility] C013Y CT Body Reading Room ONIN [id number] 23:43:00 Test Item Value Reference Range Interpretation Comments TROPONIN I (BEAKER) (test code = 0.25 ng/mL 0.00-0.03 [facility]) Troponin I (TnI) levels must be [...] failure, acidosis, acute neurological disease, and persistent tachyarrhythmia.Powder Hand ID - DBTROPONIN [id number] 17:25:00 Test Item Value Reference Range Interpretation [...] failure, acidosis, acute neurological disease, and persistent tachyarrhythmia.Powder Hand ID - DBCOMPREHENSIVE METABOLIC [id number] 14:52:00 Test Item Value Reference Range Interpretation [...] S NOT APPLICABLE FOR DIALYSIS PATIEN TS. Powder Hand ID - JOHN CSpecimen slightly ictericPROTHROMBIN [id number] 14:38:00 Test Item Value Reference Range Interpretation [...] mechanical heart valves.CBC W/PLT COUNT & AUTO [id number] 14:31:00 Test Item Value Reference Range Interpretation [...]
[2023-02-22] MEDS ORDERED: NA CHLORIDE 0.9% 1,000 ML ONE (15:17)
[2023-02-22 15:26] LABS: Absolute Lymphocytes (CBC) 0.7 K/uL (0.7-4.9); Hematocrit 35.3 % (39.6-49.0); Lymphocytes % 4.3 % (15.3-44.8); MCV 97.7 fL (80-100); MPV 7.9 fL (7.6-11.3); Platelets 216 thou/uL (152-406); RBC Red Blood Cell Count 3.61 M/uL (4.33-5.43)
[2023-02-22 15:51] LABS: Specific Gravity 1.016 (1.005-1.030); Urine Bacteria None Seen /HPF (<20); Urine Bilirubin NEGATIVE (Negative); Urine Blood 2+ (Negative); Urine Clarity Turbid (Clear); Urine Color Yellow (Yellow); Urine Glucose NEGATIVE (Negative); Urine Protein 1+ (Negative); Urine RBC <5 /HPF (None Seen); Urine Urobilinogen Normal (Normal); Urine pH 5.5 (5.0-7.0)
--- NOTE | 2023-02-22 15:51 | RAD REPORT ---
EXAM DESCRIPTION: RADChest Single View02/22/2023 3:19 pm CLINICAL HISTORY: COUGH COMPARISON: Chest Single View dated 12/20/2022; Chest Single View dated 12/01/2022; Chest Single View dated 05/26/2020; Chest Single View dated 05/15/2020 TECHNIQUE: Portable AP view of the chest. FINDINGS: Right chest wall port has been placed. Left chest wall pacer/ AICD in place. The lungs are clear. No pneumothorax or effusion. The cardiomediastinal contours are unremarkable. IMPRESSION: No acute cardiopulmonary process.
[2023-02-22 16:15] LABS: Protime INR 1.3
--- NOTE | 2023-02-22 16:55 | RAD REPORT ---
EXAM DESCRIPTION: CT - Head C Spine Cap Wo Con - 02/22/2023 3:45 pm CLINICAL HISTORY: PAIN COMPARISON: Stone Protocol dated 12/01/2022; Chest Abd Pelvis Wo Con dated 05/26/2020 TECHNIQUE: Head and cervical spine CT images were obtained without IV contrast. Chest, abdomen, and pelvis CT images were obtained without IV contrast. Multiplanar reformats were generated and reviewed . All CT scans are performed using dose optimization technique as appropriate and may include automated exposure control or mA/KV adjustment according to patient size. FINDINGS: CT HEAD: No intracranial hemorrhage, mass effect, or edema. No evidence of acute territorial infarct. Right hi gh frontal small region of encephalomalacia suggestive of sequelae of remote ischemia. No midline sherice ft or abnormal fluid collection. The ventricles are normal in caliber and configuration for age. Basa l cisterns are patent. Mastoid aircells and paranasal sinuses are clear. No acute skull fracture. CT CERVICAL SPINE: No acute cervical spine fracture or subluxation. Vertebral body heights are well maintained. Moderate to advanced degenerative changes. No hyperattenuating canal hematoma. Prevertebral and paraspinous s oft tissues are unremarkable. CT CHEST: No pneumothorax, pulmonary contusion. Trace bilateral layering effusions. No mediastinal hematoma and the aorta and pulmonary arteries are unremarkable. No chest will mass or abnormal axillary finding. No displaced rib fracture or other significant bony finding. Left chest wall pacer/AICD in place. CT ABDOMEN/ PELVIS: No evidence of traumatic injury to solid abdominal viscera. Gallbladder is unremarkable. Common bile duct stent in place, with pneumobilia noted along the central biliary radicles and some air in the ga llbladder. Stable appearance of the distal pancreatic body/ tail. . No bowel injury or significant fi nding. No free air, free fluid or abnormal fat stranding. No urinary bladder abnormality. No significant bony finding. IMPRESSION: No acute traumatic findings. Trace bilateral layering effusions. Interval placement of common bile duct stent, with some pneumobilia noted. Other chronic findings as above.
--- NOTE | 2023-02-22 17:17 | EDPHYS ---
Physician Documentation [facility] Name: Leanna Judge Age: 87 yrs Sex: Male : 1935 Arrival Date: 02/22/2023 Time: 14:08 Bed 3 Private MD: ED Physician Nik White HPI: 02/22 16:33 This 87 yrs old Male presents to ER via EMS with complaints of Fall Injury. curt 16:33 This 87 yrs old Male presents to ER via EMS with complaints of Fall Injury. curt 16:48 Details of fall: The patient fell from an upright position, SLIPPED AND FELL IN KITCHEN curt LAST NIGHT, ON FLOOR FOR 12 HRS, PAIN IN BOTH EARS AND AND JAW. Historical: - Allergies: 14:31 No Known Allergies; hb - PMHx: 14:31 Gout; Hyperlipidemia; Myocardial infarction; Pancreatic CA (pancrease/gallbladder hb stents); - PSHx: 14:31 pancrease/gallbladder stents; hb - Immunization history:: Adult Immunizations unknown. - Social history:: Smoking status: Patient denies any tobacco usage or history of. ROS: 16:39 Constitutional: Negative for fever, chills, and weight loss, Eyes: Negative for injury, curt pain, redness, and discharge, ENT: Negative for injury, pain, and discharge, Neck: Negative for injury, pain, and swelling, Cardiovascular: Negative for chest pain, palpitations, and edema, Respiratory: Negative for shortness of breath, cough, wheezing, and pleuritic chest pain, Abdomen/GI: Negative for abdominal pain, nausea, vomiting, diarrhea, and constipation, Back: Negative for injury and pain, : Negative for injury, bleeding, discharge, and swelling, MS/Extremity: Negative for injury and deformity, Skin: Negative for injury, rash, and discoloration, Psych: Negative for depression, anxiety, suicide ideation, homicidal ideation, and hallucinations, Allergy/Immunology: Negative for hives, rash, and allergies, Endocrine: Negative for neck swelling, polydipsia, polyuria, polyphagia, and marked weight changes, Hematologic/Lymphatic: Negative for swollen nodes, abnormal bleeding, and unusual bruising, 16:39 Neuro: Positive for headache, Exam: 16:39 Constitutional: This is a well developed, well nourished patient who is awake, alert, curt and in no acute distress. Head/Face: Normocephalic, atraumatic. Eyes: Pupils equal round and reactive to light, extra-ocular motions intact. Lids and lashes normal. Conjunctiva and sclera are non-icteric and not injected. Cornea within normal limits. Periorbital areas with no swelling, redness, or edema. ENT: Nares patent. No nasal discharge, no septal abnormalities noted. Tympanic membranes are normal and external auditory canals are clear. Oropharynx with no redness, swelling, or masses, exudates, or evidence of obstruction, uvula midline. Mucous membranes moist. Chest/axilla: Normal chest wall appearance and motion. Nontender with no deformity. No lesions are appreciated. Cardiovascular: Regular rate and rhythm with a normal S1 and S2. No gallops, murmurs, or rubs. Normal PMI, no JVD. No pulse deficits. Respiratory: Lungs have equal breath sounds bilaterally, clear to auscultation and percussion. No rales, rhonchi or wheezes noted. No increased work of breathing, no retractions or nasal flaring. Abdomen/GI: Soft, non-tender, with normal bowel sounds. No distension or tympany. No guarding or rebound. No evidence of tenderness throughout. Back: No spinal tenderness. No costovertebral tenderness. Full range of motion. Male : Normal genitalia with no discharge or lesions. Skin: Warm, dry with normal turgor. Normal color with no rashes, no lesions, and no evidence of cellulitis. MS/ Extremity: Pulses equal, no cyanosis. Neurovascular intact. Full, normal range of motion. Neuro: Awake and alert, GCS 15, oriented to person, place, time, and situation. Cranial nerves II-XII grossly intact. Motor strength 5/5 in all extremities. Sensory grossly intact. Cerebellar exam normal. Normal gait. Psych: Awake, alert, with orientation to person, place and time. Behavior, mood, and affect are within normal limits. 16:39 Neck: ROM/movement: pain, 16:50 ECG was reviewed by the Attending Physician. [facility] Vital Signs: 14:12 BP 131 / 96; Pulse 64; Resp 18; Temp 98(O); Pulse Ox 100% on R/A; Weight 85.73 kg (R); db Height 5 ft. 9 in. ; 14:30 BP 121 / 54; Pulse 60; Resp 15; Pulse Ox 99% ; jl7 15:00 BP 117 / 62; Pulse 64; Resp 15; Pulse Ox 100% ; jl7 16:30 BP 117 / 58; Pulse 65; Resp 18; Pulse Ox 100% on R/A; db 19:00 BP 105 / 49; Pulse 62; Resp 16; Pulse Ox 98% on R/A; jb4 20:55 BP 110 / 53; Pulse 73; Resp 16; Temp 98.6(TE); Pulse Ox 100% ; jb4 14:12 Body Mass Index 27.91 (85.73 kg, 175.26 cm) db MDM: 14:23 Patient medically screened. curt 16:44 Differential diagnosis: closed head injury, contusion, fracture, multiple trauma, curt sprain, strain. Data reviewed: vital signs, nurses notes, lab test result(s), EKG, radiologic studies, CT scan, plain films. Consideration of Admission/Observation Escalation of care including admission/observation considered. Management of patient was discussed with the following: Primary Care Provider: DR BALDWIN. I considered the following discharge prescriptions or medication management in the emergency department Medications were administered in the Emergency Department. See MAR. Independent interpretation of the following test(s) in the Emergency Department EKG: See my EKG interpretation above. Test considered but Not performed: MRI: MRI BRAIN. Care significantly affected by the following chronic conditions: Hypertension, Obesity, HIGH LIPIDS, PANCREATIC CANCER, ON CHEMO LAST WEEK. Counseling: I had a detailed discussion with the patient and/or guardian regarding the historical points, exam findings, and any diagnostic results supporting the discharge/admit diagnosis, lab results, radiology results, the need for further work-up and treatment in the hospital. 02/22 14:30 Order name: Basic Metabolic Panel; Complete Time: 18:34 curt 02/22 14:30 Order name: CBC with Diff; Complete Time: 16:01 curt 02/22 14:30 Order name: LFT's; Complete Time: 18:34 curt 02/22 14:30 Order name: Magnesium; Complete Time: 18:34 curt 02/22 14:30 Order name: NT PRO-BNP; Complete Time: 18:34 curt 02/22 14:30 Order name: PT-INR; Complete Time: 16:28 curt 02/22 14:30 Order name: Troponin HS; Complete Time: 18:34 [facility] 02/22 14:30 Order name: CPK; Complete Time: 18:34 curt 02/22 14:30 Order name: Lipase; Complete Time: 18:34 [facility] 02/22 14:30 Order name: Urinalysis w/ reflexes; Complete Time: 16:01 [facility] 02/22 16:30 Order name: Blood Culture Adult (2) 02/22 16:30 Order name: Lactate w/ 2H reflex if indic.; Complete Time: 18:34 [facility] 02/22 14:30 Order name: XRAY Chest (1 view); Complete Time: 16:01 [facility] 02/22 14:30 Order name: CT Traumagram (Head C Spine CAP wo con); Complete Time: 17:05 [facility] 02/22 14:30 Order name: EKG; Complete Time: 14:31 [facility] 02/22 14:30 Order name: Cardiac monitoring; Complete Time: 15:19 [facility] 02/22 14:30 Order name: EKG - Nurse/Tech; Complete Time: 15:19 [facility] 02/22 14:30 Order name: IV Saline Lock; Complete Time: 15:19 [facility] 02/22 14:30 Order name: Labs collected and sent; Complete Time: 15:19 [facility] 02/22 14:30 Order name: O2 Per Protocol; Complete Time: 15:19 [facility] 02/22 14:30 Order name: O2 Sat Monitoring; Complete Time: 15:19 [facility] 02/22 15:38 Order name: Labs - recollect needed: recollect blood hemolyzed per Saleem; Complete Time: eb 16:46 02/22 16:48 Order name: Labs - recollect needed: basic; Complete Time: 17:58 hb 02/22 18:55 Order name: PO challenge: JUICE; Complete Time: 19:40 [facility] EC:50 Rate is 118 beats/min. Rhythm is regular. QRS Dexter is Normal. WA interval is normal. curt QRS interval is normal. QT interval is normal. No Q waves. T waves are Normal. No ST changes noted. Clinical impression: Abnormal EKG without significant change and No evidence of ischemia. Interpreted by me. Reviewed by me. Administered Medications: 18:35 Discontinued: ns 0.9% 1000 ml IV at 125 ml/hr continuous curt 14:30 Drug: NS 0.9% IV 500 ml IV at bolus once Route: IV; Rate: bolus; Site: right jl7 antecubital; 15:30 Follow up: IV Status: Completed infusion; IV Intake: 500ml jl7 14:30 Drug: NS 0.9% IV 1000 ml IV at 125 ml/hr continuous Route: IV; Rate: 125 ml/hr; Site: jl7 right antecubital; 18:54 Follow up: Response: No adverse reaction; IV Status: Order to discontinue infusion jl7 17:30 Drug: fentaNYL (PF) IVP 25 mcg IVP once Route: IVP; Site: right antecubital; jl7 20:14 Follow up: Response: No adverse reaction jw7 17:45 Drug: Rocephin IV 1 grams IV at per protocol once; Given slow IV push per pharmacy jl7 instructions Route: IV; Rate: per protocol; Site: right antecubital; 17:55 Follow up: Response: No adverse reaction; IV Status: Completed infusion jl7 18:54 Drug: NS 0.9% with KCl IV 20 mEq/L 1000 ml IV at ml/hr continuous Route: IV; Rate: jl7 ml/hr; Site: right antecubital; 21:10 Follow up: Response: No adverse reaction; IV Status: Infusion continued upon admission; as6 IV Intake: 200ml 19:40 Drug: Potassium PO Effervescent Tablet 25 mEq PO once; dissolve in 4 ounces of water or jb4 juice Route: PO; 21:10 Follow up: Response: No adverse reaction as6 19:48 Not Given (Duplicate Order): fentanyl (pf)25 mcg IVP once jb4 Disposition Summary: 02/22/23 17:16 Hospitalization Ordered Notes: Provider: Evangelista Baldwin curt Condition: Fair curt Problem: new curt Symptoms: have improved curt Bed/Room Type: Standard curt Hospitalization Status: Observation(02/22/23 18:36) curt Location: Telemetry/MedSurg (observation)(02/22/23 20:28) cg Room Assignment: 219(02/22/23 20:28) cg Diagnosis - Fall on same level, unspecified curt - Weakness curt - Venous insufficiency (chronic) (peripheral) curt - Elevated white blood cell count, unspecified curt - Hypokalemia curt - Pleural effusion in other conditions classified elsewhere - BILATERAL, SMALL curt Forms: - Medication Reconciliation Form curt - SBAR form ucrt - Leadership Thank You Letter curt Signatures: Dispatcher [employer] Nik Resendiz MD MD cha Garcia, Cindy, RN RN cg Lisa Cm, RN RN Tano Birmingham, RN RN jb4 Manuel Gonzales RN RN jl7 Lenard Valentino RN RN ja1 Tanya Davies Danielle RN RN db Ric Leger RN as6 Gabriella Evans RN jw7 Corrections: (The following items were deleted from the chart) 17:51 17:16 [facility] 17:51 17:16 [facility] ja1 18:36 17:16 Inpatient Admission [facility] 18:36 17:16 Rhabdomyolysis [facility] 20:28 17:51 [facility] ER HOLD ja1 cg 20:28 17:51 ERHOLD- [facility] cg
--- NOTE | 2023-02-22 17:17 | ER ---
Nurse's Notes [facility] Name: Leanna Judge Age: 87 yrs Sex: Male : 1935 Arrival Date: 02/22/2023 Time: 14:08 Bed 3 Private MD: Diagnosis: Fall on same level, unspecified;Weakness;Venous insufficiency (chronic) (peripheral);Elevated white blood cell count, unspecified;Hypokalemia;Pleural effusion in other conditions classified elsewhere-BILATERAL, SMALL Presentation: 02/22 14:12 Chief complaint: EMS states: PATIENT SLIPPED AND FELL LAST NIGHT AT 11PM. STATES WAS db UNABLE TO GET UP. SON FOUND PATIENT ON THE FLOOR TODAY AT 1:30PM. COMPLAINS OF JAW PAIN AND BILATERAL EAR PAIN PT TAKES 81 MG ASPIRIN. DOES NOT TAKE BLOOD THINNERS. STARTED FIRST CHEMO 2 DAYS AGO HAS PANCREATIC CANCER STAGE IV. Coronavirus screen: Client denies travel out of the [place] in the last 14 days. At this time, the client does not indicate any symptoms associated with coronavirus-19. Ebola Screen: Patient negative for fever greater than or equal to 101.5 degrees Fahrenheit, and additional compatible Ebola Virus Disease symptoms Patient denies exposure to infectious person. Patient denies travel to an Ebola-affected area in the 21 days before illness onset. No symptoms or risks identified at this time. Initial Sepsis Screen: Does the patient meet any 2 criteria? No. Patient's initial sepsis screen is negative. Does the patient have a suspected source of infection? No. Patient's initial sepsis screen is negative. Risk Assessment: Do you want to hurt yourself or someone else? Patient reports no desire to harm self or others. Onset of symptoms was February 22, 2023. 14:12 Method Of Arrival: EMS: [facility] db 14:12 Acuity: GRACIE 2 db Triage Assessment: 14:12 General: Appears in no apparent distress. comfortable, Behavior is calm, cooperative. db Pain:. Pain: Complains of pain in right ear and left ear, jaw. Neuro: Level of Consciousness is awake, alert, obeys commands, Oriented to person, place, time. Respiratory: Airway is patent Respiratory effort is even, unlabored, Respiratory pattern is regular, symmetrical. Historical: - Allergies: 14:31 No Known Allergies; hb - PMHx: 14:31 Gout; Hyperlipidemia; Myocardial infarction; Pancreatic CA (pancrease/gallbladder hb stents); - PSHx: 14:31 pancrease/gallbladder stents; hb - Immunization history:: Adult Immunizations unknown. - Social history:: Smoking status: Patient denies any tobacco usage or history of. Screenin:25 [facility] ED Fall Risk Assessment (Adult) History of falling in the last 3 months, db including since admission Yes- fall prone (multiple falls) (3 pts) Confusion or Disorientation No (0 pts) Intoxicated or Sedated No (0 pts) Impaired Gait No (0 pts) Mobility Assist Device Used No (0 pt) Altered Elimination No (0 pt) Score/Fall Risk Level 3 or more points = High Risk Oriented to surroundings, Maintained a safe environment, Educated pt \T\ family on fall prevention, incl call for assistance when getting out of bed, Hourly rounding (assess needs \T\ fall precautionary measures) done. Abuse screen: Denies threats or abuse. Denies injuries from another. Nutritional screening: No deficits noted. Tuberculosis screening: No symptoms or risk factors identified. Assessment: 14:25 Reassessment: Patient appears in no apparent distress at this time. see triage for db initial assessment. General: Appears in no apparent distress. comfortable, Behavior is calm, cooperative. 15:30 Reassessment: Patient appears in no apparent distress at this time. No changes from jl7 previously documented assessment. Patient and/or family updated on plan of care and expected duration. Pain level reassessed. Patient is alert, oriented x 3, equal unlabored respirations, skin warm/dry/pink. 16:30 Reassessment: Patient appears in no apparent distress at this time. No changes from jl7 previously documented assessment. Patient and/or family updated on plan of care and expected duration. Pain level reassessed. Patient is alert, oriented x 3, equal unlabored respirations, skin warm/dry/pink. 16:52 Reassessment: CALLED INSIDE LAB FOR BLOOD COLLECTION DUE TO 2ND RECOLLECT ORDER. db 16:58 Reassessment: Patient appears in no apparent distress at this time. Patient and/or db family updated on plan of care and expected duration. Pain level reassessed. FAMILY IS AT BEDSIDE. PATIENT IS SPEAKING WITH FAMILY. 17:00 Reassessment: Pt complaining of bilateral ear pain and jaw pain, ERD notified, see MAR jl7 for orders. 18:00 Reassessment: Patient appears in no apparent distress at this time. Patient and/or jl7 family updated on plan of care and expected duration. Pain level reassessed. Patient is alert, oriented x 3, equal unlabored respirations, skin warm/dry/pink. Patient states feeling better. 18:55 Reassessment: Dr. White at bedside discussing results and POC. jl7 20:12 Reassessment: Patient appears in no apparent distress at this time. Patient and/or jw7 family updated on plan of care and expected duration. Pain level reassessed. Patient is alert, oriented x 3, equal unlabored respirations, skin warm/dry/pink. denies any needs at this time Patient states feeling better. Vital Signs: 14:12 BP 131 / 96; Pulse 64; Resp 18; Temp 98(O); Pulse Ox 100% on R/A; Weight 85.73 kg (R); db Height 5 ft. 9 in. ; 14:30 BP 121 / 54; Pulse 60; Resp 15; Pulse Ox 99% ; jl7 15:00 BP 117 / 62; Pulse 64; Resp 15; Pulse Ox 100% ; jl7 16:30 BP 117 / 58; Pulse 65; Resp 18; Pulse Ox 100% on R/A; db 19:00 BP 105 / 49; Pulse 62; Resp 16; Pulse Ox 98% on R/A; jb4 20:55 BP 110 / 53; Pulse 73; Resp 16; Temp 98.6(TE); Pulse Ox 100% ; jb4 14:12 Body Mass Index 27.91 (85.73 kg, 175.26 cm) db ED Course: 14:19 Patient arrived in ED. db 14:22 Triage completed. db 14:23 Nik White MD is Attending Physician. curt 14:24 Arm band placed on Patient placed in an exam room. db 14:30 Patient has correct armband on for positive identification. Placed in gown. Bed in low jl7 position. Call light in reach. Side rails up X 1. 14:30 Client placed on continuous cardiac and pulse oximetry monitoring. NIBP monitoring jl7 applied. 14:41 Manuel Gonzales, ASIF is Primary Nurse. jl7 14:45 No provider procedures requiring assistance completed. Initial lab(s) drawn, by , jl7 sent to lab. Inserted saline lock: 20 gauge in left antecubital area, using aseptic technique. wrist, using aseptic technique. Blood collected. 15:21 XRAY Chest (1 view) In Process Unspecified. EDMS 15:46 CT Traumagram (Head C Spine CAP wo con) In Process Unspecified. EDMS 15:49 Provided Education on: Use of call bag. jl7 17:00 Lab(s) recollected. Inserted saline lock: 20 gauge in right antecubital area, using jl7 aseptic technique. Blood collected. 17:15 Evangelista Graham MD is Hospitalizing Provider. curt Administered Medications: 18:35 Discontinued: ns 0.9% 1000 ml IV at 125 ml/hr continuous curt 14:30 Drug: NS 0.9% IV 500 ml IV at bolus once Route: IV; Rate: bolus; Site: right 7 antecubital; 15:30 Follow up: IV Status: Completed infusion; IV Intake: 500ml jl7 14:30 Drug: NS 0.9% IV 1000 ml IV at 125 ml/hr continuous Route: IV; Rate: 125 ml/hr; Site: [facility] er right antecubital; 18:54 Follow up: Response: No adverse reaction; IV Status: Order to discontinue infusion jl7 17:30 Drug: fentaNYL (PF) IVP 25 mcg IVP once Route: IVP; Site: right antecubital; jl7 20:14 Follow up: Response: No adverse reaction 7 17:45 Drug: Rocephin IV 1 grams IV at per protocol once; Given slow IV push per pharmacy jl7 instructions Route: IV; Rate: per protocol; Site: right antecubital; 17:55 Follow up: Response: No adverse reaction; IV Status: Completed infusion jl7 18:54 Drug: NS 0.9% with KCl IV 20 mEq/L 1000 ml IV at ml/hr continuous Route: IV; Rate: jl7 ml/hr; Site: right antecubital; 21:10 Follow up: Response: No adverse reaction; IV Status: Infusion continued upon admission; as6 IV Intake: 200ml 19:40 Drug: Potassium PO Effervescent Tablet 25 mEq PO once; dissolve in 4 ounces of water or jb4 juice Route: PO; 21:10 Follow up: Response: No adverse reaction as6 19:48 Not Given (Duplicate Order): fentanyl (pf)25 mcg IVP once jb4 Medication: 15:49 VIS not applicable for this client. jl7 Intake: 15:30 IV: 500ml; Total: 500ml. jl7 21:10 IV: 200ml; Total: 700ml. as6 Outcome: 17:16 Decision to Hospitalize by Provider. curt 21:10 Admitted to Med/surg accompanied by tech, via stretcher, room 219, Report called to shantell Rollins RN 21:10 Condition: stable 21:10 Discharge instructions given to patient, Instructed on the need for admit, Demonstrated understanding of instructions, 21:11 Patient left the ED. long4 Signatures: Dispatcher [employer] EDNik Burt MD MD cha Baxter, Heather, RN RN Tano Blunt RN RN jb4 Manuel Gonzales RN ASIF jl7 Ric Leger RN RN as6 Gabriella Evans RN RN jw7 Abigail Reed RN RN db Corrections: (The following items were deleted from the chart) 17:58 17:58 fentaNYL (PF) IVP 25 mcg IVP in right antecubital jl7 jl7
[2023-02-22] MEDS ORDERED: CEFTRIAXONE 1000 MG/VIAL ONE (17:28)
[2023-02-22] MEDS ORDERED: FENTANYL CITR 100 MCG/2 ML ONE (17:29)
[2023-02-22 18:19] LABS: ALT/SGPT 37 U/L (16-61); AST/SGOT 41 U/L (15-37); Albumin 2.3 g/dL (3.4-5.0); Alkaline Phosphatase 261 U/L (45-117); BUN Blood Urea Nitrogen 20 mg/dL (7-18); Bicarbonate 25 mEq/L (21-32); Bilirubin Direct 0.8 mg/dL (0-0.2); Bilirubin Indirect, Calculated 0.8 mg/dL (0.2-0.8); Bilirubin Total 1.6 mg/dL (0.2-1.0); Creatine Phosphokinase 208 U/L (39-308); Glomerular Filtration Rate 54 ml/min (=/>90); Glucose Level 97 mg/dL (74-106); Magnesium 1.6 mg/dL (1.6-2.4); NT PRO-BNP 5405 pg/mL (<450); Potassium 2.8 mEq/L (3.5-5.1); Protein, Total 6.1 g/dL (6.4-8.2); Sodium Level 137 mEq/L (136-145); Troponin High Sensitivity 47.1 pg/mL (<58.9)
[2023-02-22 18:20] LABS: Lipase < 6 U/L (13-75)
[2023-02-22] MEDS ORDERED: POTASSIUM 25 MEQ EFFERV TAB ONE ×2 (18:55→19:27)
[2023-02-22] MEDS ORDERED: NS KCL 20MEQ 1,000 ML IV ONE (18:56)
[2023-02-22] MEDS: NS KCL 20MEQ 20 MEQ/1,000 ML BAG IV SCH (20:02)
[2023-02-22 21:39] LABS: Potassium 3.3 mEq/L (3.5-5.1); Troponin High Sensitivity 52.3 pg/mL (<58.9)
[2023-02-22 22:13] VITALS: BMI 30.1
[2023-02-22] MEDS: FAMOTIDINE 20 MG/2 ML VIAL IV SCH (22:18)
[2023-02-22] MEDS: ACETAMINOPHEN 325 MG TABLET PO PRN (22:18)
[2023-02-23 03:07] LABS: Absolute Lymphocytes (CBC) 0.6 K/uL (0.7-4.9); Hematocrit 28.4 % (39.6-49.0); Lymphocytes % 5.2 % (15.3-44.8); MCV 97.2 fL (80-100); MPV 8.3 fL (7.6-11.3); Platelets 194 thou/uL (152-406); RBC Red Blood Cell Count 2.92 M/uL (4.33-5.43)
[2023-02-23 03:42] LABS: Potassium 2.8 mEq/L (3.5-5.1)
[2023-02-23 04:46] LABS: Blood Morphology Comment NOT SEEN (NOT SEEN); Platelet Estimate ADEQ
[2023-02-23] MEDS: NS KCL 20MEQ 20 MEQ/1,000 ML BAG IV SCH (05:28)
[2023-02-23] MEDS ORDERED: ASPIRIN EC 81 MG TAB PO SCH (09:00)
[2023-02-23] MEDS: FAMOTIDINE 20 MG/2 ML VIAL IV SCH ×2 (09:08→19:49)
[2023-02-23] MEDS: ACETAMINOPHEN 325 MG TABLET PO PRN ×3 (09:24→19:48)
[2023-02-23] MEDS: KCL 20 MEQ/100 mL IVPB 20 MEQ/100 ML BAG IV SCH ×3 (15:37→19:49)
[2023-02-23] MEDS ORDERED: NA CHLORIDE 0.9% 1,000 ML ONE (15:46)
[2023-02-23] MEDS ORDERED: CEFTRIAXONE 1,000 MG in NA CHLORIDE 0.9% 50 ML IVPB SCH (16:00)
--- NOTE | 2023-02-23 16:47 | EKG ---
Test Date: 2023-02-23 Test Time: 07:37:42 Metal Refiner: ASHLEY MEASUREMENT RESULTS: Intervals: Rate: 60 WY: 116 QRSD: 180 QT: 464 QTc: 464 [place]: P: 33 WY: 116 QRS: -51 T: 89 INTERPRETIVE STATEMENTS: Demand pacemaker, interpretation is based on intrinsic rhythm Sinus rhythm with fusion complexes Left axis deviation Nonspecific intraventricular block Lateral infarct, age undetermined Inferior infarct, age undetermined Abnormal ECG Compared to ECG 02/22/2023 14:57:29 Fusion complex(es) now present Left-axis deviation now present Myocardial infarct finding now present Indeterminate axis no longer present T-wave abnormality no longer present Possible ischemia no longer present Electronically Signed On 02-23-23 16:46:16 CDT by Savage Bethea
--- NOTE | 2023-02-23 16:50 | EKG ---
Test Date: 2023-02-22 Test Time: 14:57:29 Electronic Development Technician: MARYBETH MEASUREMENT RESULTS: Intervals: Rate: 118 OR: QRSD: 8 QT: 302 QTc: 423 [place]: P: OR: QRS: 0 T: 129 INTERPRETIVE STATEMENTS: V paced rhythm Electronically Signed On 02-23-23 16:47:24 CDT by Savage Bethea
[2023-02-24 01:10] VITALS: O2SAT 96
[2023-02-24] MEDS: ACETAMINOPHEN 325 MG TABLET PO PRN ×2 (01:30→06:44)
[2023-02-24 07:22] LABS: Magnesium 1.7 mg/dL (1.6-2.4); Potassium 3.2 mEq/L (3.5-5.1)
--- NOTE | 2023-02-24 08:34 | HP ---
Date of Admission: 02/23/2023 Chief Complaint: Fall and unable to get up. History Of Present Illness: This is an 87-year-old male patient, who was in his kitchen Thursday night and reports that he was pouring some apple juice out of a container into a glass and he ended up dropping the container as well as glass on the floor and he slipped on that wet floor and fell down on the ground. He was not able to get up, this happened probably around 11 p.m. Thursday night. Yesterday, which is on Thursday around noon time, the patient's son went over to his house to help take care of his lunch and found him on the floor in the kitchen and he ended up calling ambulance and the patient was brought into ER. After the patient was evaluated in the ER, he was admitted to the hospital. The patient denies any fever, chills, nausea, or vomiting. He has occasional intermittent right upper quadrant abdominal pain. The patient has been diagnosed as having pancreatic cancer and reports that he had his first session of chemotherapy with his oncologist in [place]. Allergies: NO KNOWN ALLERGIES. Medications: Allopurinol 100 mg daily; aspirin 81 mg daily; escitalopram 20 mg daily; furosemide 20 mg daily; gabapentin 100 mg capsule, takes 2 capsules 3 times a day; Nitrostat p.r.n.; and nystatin cream as needed for rash. Review of Systems: Constitutional: Generalized weakness. GI: Right upper quadrant abdominal pain. All other systems reviewed and negative. 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 Past Surgical History: Significant for coronary artery stent placement in 2007 and May 15, 2020, pacemaker placement on June 01, 2019, and radiofrequency ablation done in the past, also had a surgical excision for melanoma of the scalp. Family History: Parents had heart disease. Brother had throat cancer and heart disease. Sister also had heart disease. Social History: Prior history of smoking, not at present time. Use of alcohol, negative. Physical Examination: Vital Signs: This morning temperature 97.4, pulse 60, respiratory rate 18, blood pressure 126/69, oxygen saturation 98%. Height 5 feet 9 inches, weight 204 pounds. General: Awake, alert, oriented, not in distress. HEENT: Head atraumatic, normocephalic. Conjunctivae nonerythematous. Sclerae white. Mouth, no thrush or edema noted. Ears/Nose, no mass, lesion, discharge noted. Neck: Supple. No JVD, lymph nodes, bruit, thyromegaly noted. Lungs: Bilateral good equal air entry. Clear to auscultation. No rhonchi. No rales. Heart: Normal heart sounds, no murmur or gallop. Abdomen: Soft, bowel sounds normal. No guarding, rigidity, tenderness, mass, hepatosplenomegaly, distention, or bruit noted. Extremities: No leg edema. No calf tenderness. Skin: No rash, ulcer, cellulitis. Lymphatics: No lymph node enlargement in neck, supraclavicular, infraclavicular region. Neuro: No focal neurological deficit. Chest: Unremarkable. External Genitalia: Deferred. Rectal: Deferred. Laboratory Data: Yesterday, white count 16.5, hemoglobin 11.8, platelets 216. This morning, white count 11.2, hemoglobin 9.8, and platelets 194. Sodium 137 yesterday with potassium 2.8, chloride 107, bicarb 25, BUN 20, creatinine 1.27, glucose 97. Lactic acid 2.3, total bilirubin 1.6, AST 41, ALT 37, alkaline phosphatase 261. ProBNP 5405. Troponin 47.1 on the first set and second set was 52.3. Lipase less than 6. This morning, sodium 139, potassium 2.8, chloride 109, bicarb 24, BUN 19, creatinine 1.19, glucose 123. Urinalysis, leukocyte esterase 75, protein 1+, otherwise it was negative. CAT scan per trauma protocol, no acute intracranial, intrathoracic, or intraabdominal findings. Chest x-ray, no acute cardiopulmonary changes. Impression: 1. Hypokalemia. 2. Leukocytosis. 3. Generalized weakness. 4. Pancreatic cancer. 5. Type 2 diabetes mellitus with diabetic neuropathy. 6. Hypertension. 7. Mixed hyperlipidemia. 8. Coronary artery disease. 9. Osteoarthritis, multiple sites. 10. Anemia due to chronic kidney disease. 11. Anxiety. Plan: We will go ahead and admit the patient to hospital for further evaluation and management of this problem. The patient is appropriate for inpatient and is expected to spend 2 midnights in the hospital. We will go ahead and continue current empiric antibiotic dose started in the emergency room. We will consult Physical Therapy. Fall precaution was ordered. Diabetes will be managed with sliding scale insulin. We will replace electrolytes per protocol, repeat blood work tomorrow, and depending on his condition tomorrow, we will decide if we can possibly discharge him to go home tomorrow or not. Plan of treatment discussed with the patient. We will continue his escitalopram for anxiety per order, continue his gabapentin for diabetic neuropathy per order. JEFF/MODL Voice ID: [id number] MTDD
[2023-02-24 15:53] VITALS: TEMP 97.2
[2023-02-24 15:54] VITALS: BP 111/54
--- NOTE | 2023-02-25 01:25 | DS ---
Date of Discharge: 02/24/2023 Disposition: Discharged to go home. Physical Examination: HEENT: Unremarkable. Lungs: Clear to auscultation. Heart: Sounds normal. Abdomen: Soft. Bowel sounds normal. No guarding, rigidity, tenderness, or distention. Extremities: No leg edema. Laboratory Data: Upon admission, sodium 137, potassium 2.8, chloride 107, bicarb 25, BUN 20, creatinine 1.27, glucose 97. Liver function tests unremarkable except total bilirubin 1.6. Today, sodium 140, potassium 3.2, chloride 112, bicarb 25, BUN 17, creatinine 1.0, glucose 105, magnesium 1.7. Initial troponin 47.1, second troponin 52.3. CBC; initial white count 16.5, hemoglobin 11.8, platelets 216 and yesterday, white count 11.2, hemoglobin 9.8, platelets 190. Hospital Course: This is an 87-year-old very pleasant male patient, who was admitted to the hospital after he had fallen down at home. Please see dictated H and P for more information. The patient was brought into emergency room. He was evaluated and admitted to the hospital. The patient had leukocytosis and hypokalemia. His potassium was corrected and this morning, potassium was still slightly on the low side and replacement dose for potassium was ordered. He was given empiric antibiotic, ceftriaxone, yesterday. He had very minimal right upper quadrant pain and this morning that has completely resolved. The patient has recently started outpatient chemotherapy in [place] with his oncologist for pancreatic cancer. His next chemotherapy cycle is later part of next week as he tells me. Overall, the patient's condition has improved. Yesterday, Physical Therapy was consulted and he ambulated well with the physical therapy. He is tolerating diet very well and does not have any complaints and today, he was discharged to go home in stable condition with following discharge medications and instructions. Discharge Medications: 1. Continue all prior home medication except change potassium chloride 20 mEq, take 1 tablet by mouth daily. He was recently prescribed 20 mEq tablets 1 tablet to be taken 2 times a day for total of 20 tablets and he has only taken 2 or 3 tablets part of this supply, so I have advised him to use only 1 tablet daily. Continue all other previous home medications. 2. Take cefuroxime 250 mg 2 times a day. Follow up at my office next week on Thursday. Discharge Diagnoses: 1. Hypokalemia. 2. Leukocytosis. 3. Generalized weakness. 4. Pancreatic cancer. 5. Type 2 diabetes mellitus with diabetic neuropathy. 6. Hypertension. 7. Mixed hyperlipidemia. 8. Coronary artery disease. 9. Osteoarthritis, multiple sites. 10. Anemia due to chronic kidney disease. 11. Anxiety. JEFF/MODL Voice ID: [id number] Report ID: [id number] MTDD
== END 2023-02-24 11:30 | disposition home or self-care (01) | DRG 641 ==
LOC: ER 14:08 → ERHOLD 17:19 → 2ND 20:46
PROVIDERS: ADMIT Internal Medicine; ATTEND Internal Medicine
DX: E87.6 Hypokalemia (principal); C25.9 Malignant neoplasm of pancreas, unspecified; D72.829 Elevated white blood cell count, unspecified; E78.5 Hyperlipidemia, unspecified; M10.9 Gout, unspecified; E66.9 Obesity, unspecified; I87.2 Venous insufficiency (chronic) (peripheral); E11.40 Type 2 diabetes mellitus with diabetic neuropathy, unspecified; E78.2 Mixed hyperlipidemia; M19.09 Primary osteoarthritis, other specified site; F41.9 Anxiety disorder, unspecified; I12.9 Hypertensive chronic kidney disease with stage 1 through stage 4 chronic kidney disease, or unspecified chronic kidney disease; N18.9 Chronic kidney disease, unspecified; E11.22 Type 2 diabetes mellitus with diabetic chronic kidney disease; E11.42 Type 2 diabetes mellitus with diabetic polyneuropathy; D63.1 Anemia in chronic kidney disease; I25.10 Atherosclerotic heart disease of native coronary artery without angina pectoris; I25.2 Old myocardial infarction; Z95.0 Presence of cardiac pacemaker; Z95.5 Presence of coronary angioplasty implant and graft; Z79.82 Long term (current) use of aspirin; Z68.30 Body mass index [BMI] 30.0-30.9, adult; Z85.07 Personal history of malignant neoplasm of pancreas; Z87.891 Personal history of nicotine dependence; Z79.899 Other long term (current) drug therapy; W01.0XXA Fall on same level from slipping, tripping and stumbling without subsequent striking against object, initial encounter; Y93.9 Activity, unspecified; Y92.000 Kitchen of unspecified non-institutional (private) residence as the place of occurrence of the external cause; Y99.9 Unspecified external cause status
CPT/HCPCS: 36415; 70450; 71045; 71250; 72125; 80048; 80076; 81001; 82550; 83605; 83690; 83735; 83880; 84132; 84484; 85025; 85610; 87040; 93005; 96361; 96374; 96375; 97116; 97161; 99285; J0696; J3010; J3480; J7030

== ENCOUNTER 2023-03-14 19:27 | Emergency (ER) | payer OTHER, BC ==
--- OUTSIDE RECORDS SUMMARY | 2023-03-14 19:33 | XMS REPORT | Continuity of Care Document ---
:1935 Author Organization [facility] Address [address] [facility] [address] [place] [id number] Care Team Providers Name Role Phone Asked, No Pcp Primary Care Physician Unavailable JOSE LUIS REIS Attending Clinician Unavailable GINA NAPOLES Attending Clinician Unavailable ERIKA HINOJOSA Attending Clinician Unavailable MERT MILLER Attending Clinician Unavailable Emma GOLD, Miroslava Medina Attending Clinician Unavailable Mert Miller MD Attending Clinician Pascual STATION ENGINEER, Gerson Attending Clinician Rianna Jackson RN Attending Clinician Unavailable Virtual, Surgeon Attending Clinician Unavailable Ana Ballesteros RN Attending Clinician Unavailable PRINCESS GARSIA Attending Clinician Unavailable Izabella Lopes PA-C Attending Clinician Princess Rich MD Attending Clinician PRINCESS RICH Attending Clinician Unavailable Princess Garsia MD Attending Clinician Tripp GOLD, Roxie Navarrete Attending Clinician Unavailable Nav EPPS, Alphonse Reyes Attending Clinician [phone] Ellen Melo MD Attending Clinician Jose Luis Reis MD Attending Clinician JACKIE PAK Attending Clinician Unavailable Rosalba Chau Attending Clinician Unavailable Konstantin Morataya MD Attending Clinician [phone] Cyndee Patel Attending Clinician KONSTANTIN MORATAYA Attending Clinician Unavailable GINA BOSWELL Attending Clinician Unavailable ELLEN MELO Admitting Clinician Unavailable ERIKA HINOJOSA Admitting Clinician Unavailable MERT MILLER Admitting Clinician Unavailable JACKIE PAK Admitting Clinician Unavailable HORACIO LUGO Admitting Clinician Unavailable GINA BOSWELL Admitting Clinician Unavailable Payers Payer Name Policy Type Policy Number Effective Date Expiration Date S johnny MEDICARE A B [id number] 1998 00:00:00 BCBS FED [id number] 2019 00:00:00 Problems Condition Condition Condition Status Onset Resolution Last Treating Co mments Source Name Details Category Date Date Treatment Clinician Date Hypokalemi Hypokalemi Disease Active [facility] 00 [place] 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[facility] of 00:00: Medical pancreas, pancreas, 00 Cent er unspecifie unspecifie d location d location of of malignancy malignancy Other Other Disease 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[facility] of liver of liver 00:00: Medica l 00 Center 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 hypertensi nce 8-30 [facility] on on 00:00: Medical 00 [place] Immunity Immunity Disease Active [facility] status status 8 [facility] testing testing 00:00: Medical 00 [place] 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 8[facility]16 [facility] disease disease 00:00: Medical 00 [place] Hypertensi Hypertensi Disease Active [facility] on on 816 [facility] 00:00: Medical 00 [place] Pancreatit Pancreatit Disease Active [facility] is is 8-16 [facility] 00:[facility]: Medical 00 Center Pancreatic Pancreatic Disease Active [facility] mass mass 7-10 [facility] 00:[facility] Medical 00 Center Acute Acute Disease Active [facility] cholecysti cholecysti 1-03 [facility] tis due to tis due to 00:00: Me dical biliary biliary 00 Center calculus calculus Cardiac Cardiac Disease Active [facility] arrhythmia arrhythmia 05-31 [facility] 00:[facility]: H[place] 00 [place] Disease [facility] (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 Natural mother Cancer [facility] Natural mother Heart disease [facility] Natural brother Cancer [facility] Natural sister Brain cancer [facility] Social History Social Habit Start Date Stop Date Quantity Comments Source History [facility] History of tobacco Cigarette Smoker [facility] use Medical Center History [facility] Sexual orientation [facility] Exposure to 2023-01-30 2023-02-[address] [facility] SARS-CoV-2 (event) 00:00:00 13:15:00 Medica l Center History [facility] 2022-12-01 2022-12-[address] [facility] Transport Med 00:00:00 00:00:[address] [facility] 2022-12-01 2022-12-[address] [facility] Housing Unable to 00:00:00 00:00:00 Medical Center Pay History [facility] 2022-12-01 2022-12-[address] [facility] Housing Places 00:00:00 00:00:00 Medical Ce nter Lived History [facility] 2022-12-01 2022-12-[address] [facility] Housing Homeless 00:00:00 00:00:00 Medical Center Last Year Alcohol intake 2019-06-03 2019-06-03 [facility]00 non-drinker Hospital (finding) History of Social 2019-06-01 2019-06-[address] function 00:00:00 00:00:00 Hospital History SDOH 2019-05-31 2019-05-31 1 [facility] Frequency 00:00:00 00:00:00 Hospita l Sex Assigned At [birth year] [facility] 00[facility] Hospital Smoking Status Start Date Stop Date Source Ex-smoker 2023-01-07 00:00:00 2023-01-07 00:00:[address] [facility] Never smoked tobacco [facility] Medications Ordered Filled Start Stop Current Ordering Indication Dosage Frequency Signature Comments Components Source Medication Medication Date Date Medication? Clinician (SIG) Name Name gabapentin Yes 200mg Q.[id number] Take [address] (NEURONTIN) 9-27 [id number] capsules [facility] 100 MG 10:25: 3D (200 mg Medical capsule 16 total) by Center mouth 3 (three) times daily. allopurinoL 0 Yes 100mg QD Take [address] (ZYLOPRIM) 9-27 tablet [facility] 100 MG 10:25: (100 mg Medical tablet 16 total) by Center mouth daily. aspirin 81 0 Yes 81mg QD Take 1 [facility] MG EC 9-27 tablet (81 [facility] tablet 10:25: mg total) Medica l 16 by mouth Center daily. potassium Yes hypokalemia [address] chloride SA 9-27 BID for 10 [facility] (K-DUR,KLOR 00:00: days and Me dical -CON-M) 20 00 stop. Center MEQ tablet magnesium 0 Yes Hypomagnese 250mg Q.5D Take [address] oxide 250 9-13 zayda tablet [facility] mg 00:00: (250 mg Medical magnesium 00 total) by Cente r Tab tablet mouth 2 (two) times daily. ondansetron 0 2022- Yes 8mg Take [address] (ZOFRAN) 8 - 11-05 tablet (8 Suresh es MG tablet 00:00: 23:59 mg total) Me dical 00 :00 by mouth Center every 8 (eight) hours as needed for Nausea for up to 60 days. furosemide 3-0 2023- No 20mg Q.5D Take [address] (LASIX) 20 -30 -30 tablet (20 [facility] MG tablet 08:48: 00:00 mg total) Me dical 47 :00 by mouth 2 Center (two) times daily. escitalopra 2023-0 2023- No 20mg QD Take [address] m oxalate 8-30 08-30 tablets [facility] (LEXAPRO) 08:35: 00:00 (20 mg Medic al 10 MG 03 :00 total) by Center tablet mouth daily. valsartan 3-0 2023- No 320mg QD Take [address] (DIOVAN) 8-30 08-30 tablet [facility] 320 MG 08:34: 00:00 (320 mg Medical tablet 50 :00 total) by Center mouth daily. metoprolol 3-0 2023- No 25mg QD Take [address] succinate -30 -30 tablet (25 Suresh es (TOPROL-XL) 08:34: 00:00 mg total) Medical 25 MG 24 hr 41 :00 by mouth Cent er tablet daily. metoprolol 2023-0 Yes 25mg QD Take 1 [facility] t succinate 8-16 tablet (25 Luke s (TOPROL-XL) 13:09: mg total) M edical 25 MG 24 hr 35 by mouth Cent er tablet daily. valsartan 2023-0 Yes 320mg QD Take 1 [facility] t (DIOVAN) 8-16 tablet [facility] 320 MG 13:09: (320 mg Medical tablet 35 total) by Center mouth daily. escitalopra 2023-0 Yes 20mg QD Take [address] m oxalate 8-16 tablets [facility]ukes (LEXAPRO) 13:09: (20 mg Medica l 10 MG 35 total) by Center tablet mouth daily. gabapentin 2023-0 Yes 200mg Q.[id number] Take [address] (NEURONTIN) 8-16 [id number] capsules [facility] 100 MG 13:09: 3D (200 [...] 50 total) by Center mouth daily. escitalopra 3-0 Yes 20mg QD Take [address] m oxalate -13 tablets [facility]ukes (LEXAPRO) 18:24: (20 mg Medica l 10 MG 50 total) by Center tablet mouth daily. gabapentin 3-0 Yes 200mg Q.[id number] Take [address] (NEURONTIN) 12-04 [id number] capsules [facility] 100 MG 18:24: 3D (200 mg Medical capsule 50 total) by Center mouth 3 (three) times daily. allopurinoL 3-0 Yes 100mg QD Take [address] (ZYLOPRIM) 12-04 tablet [facility]ukes 100 MG 18:24: (100 mg Medical tablet 50 total) by Center mouth daily. aspirin 81 3-0 Yes 81mg QD Take 1 [facility] t MG EC 7-13 tablet (81 [facility] tablet 18:24: mg total) Medica l 50 by mouth Center daily. nitroglycer 2022-0 2022- No .6mg Place 1 [...] by Center mouth daily as needed. metoprolol 2022-0 Yes 25mg QD Take 1 [facility] t succinate 7-13 tablet (25 Luke s (TOPROL-XL) 15:34: mg total) M edical 25 MG 24 hr 48 by mouth Cent er tablet daily. valsartan 2022-0 Yes 320mg QD Take 1 [facility] t (DIOVAN) 7-13 tablet [facility] 320 MG 15:34: (320 mg Medical tablet 48 total) by Center mouth daily. escitalopra 2022-0 Yes 20mg QD Take [address] m oxalate 7-13 tablets [facility]ukes (LEXAPRO) 15:34: (20 mg Medica l 10 MG 48 total) by Center tablet mouth daily. gabapentin 2022-0 Yes 200mg Q.[id number] Take [address] (NEURONTIN) 7-13 [id number] capsules [facility] 100 MG 15:34: 3D (200 mg Medical capsule 48 total) by Center mouth 3 (three) times daily. allopurinoL 2022-0 Yes 100mg QD Take [address] (ZYLOPRIM) 7-13 tablet [facility] 100 MG 15:34: (100 mg Medical tablet 48 total) by Center mouth daily. aspirin 81 2022-0 Yes 81mg QD Take 1 [facility] t MG EC 7-13 tablet (81 [facility] tablet 15:34: mg total) Medica l 48 by mouth Center daily. clopidogreL 2022-0 3- No 75mg QD Take [address] (PLAVIX) 75 7-10 07-10 by mouth Suresh es mg tablet 16:37: 00:00 daily. Medic al 51 :00 Center clopidogreL 3-0 2023- No 75mg QD Take [address] (PLAVIX) 75 7-10 07-10 by mouth Suresh es mg tablet 16:37: 00:00 daily. Medic al 51 :00 Center clopidogreL 3-0 2023- No 75mg QD Take [address] (PLAVIX) 75 7-10 07-10 by mouth Suresh es mg tablet 16:37: 00:00 daily. Medic al 51 :00 Center clopidogreL 3-0 2023- No 75mg QD Take [address] (PLAVIX) 75 7-10 07-10 by mouth Suresh es mg tablet 16:37: 00:00 daily. Medic al 51 :00 Center escitalopra Yes 20mg QD Take [address] m oxalate 6-28 tablet (20 Luke s (LEXAPRO) 00:00: mg total) Med ical 20 MG 00 by mouth Center tablet every morning. metoprolol Yes 25mg QD Take 25 mg [...] MG 13:43: mouth Medical tablet 19 daily. [place] escitalopra Yes 10mg QD Take [address] m oxalate 1-07 by mouth [facility]ukes (LEXAPRO) 13:43: daily. Medica l 10 MG 19 Center tablet gabapentin Yes 100mg Q.[id number] Take [address] (NEURONTIN) 1-07 [id number] mg by L ukes 100 MG 13:43: 3D mouth 3 Medical capsule 19 (three) Center times daily. allopurinoL Yes 100mg QD Take [address] (ZYLOPRIM) 1-07 mg by [facility] 100 MG 13:43: mouth Medical tablet 19 daily. [place] aspirin 81 Yes 81mg QD Take 81 [...] 13:43: daily as Medical capsule 19 needed. [place] metoprolol Yes 25mg QD Take [address] succinate 1-07 by mouth [facility] (TOPROL-XL) 13:43: daily. [facility] kilo 25 MG 24 hr 19 Center tablet clopidogreL Yes 75mg QD Take [address] (PLAVIX) 75 1-07 by mouth Luke s mg tablet 13:43: daily. Medica l 19 [place] valsartan Yes 320mg QD Take [address] (DIOVAN) 1-07 mg by [facility]ukes 320 MG 13:43: mouth Medical tablet 19 daily. [place] escitalopra Yes 10mg QD Take [address] m oxalate 1-07 by mouth [facility] (LEXAPRO) 13:43: daily. Medica l 10 MG 19 Center tablet gabapentin Yes 100mg Q.[id number] Take [address] (NEURONTIN) 1-07 [id number] mg by L ukes 100 MG 13:43: 3D mouth 3 Medical capsule 19 (three) Center times daily. allopurinoL Yes 100mg QD Take [address] (ZYLOPRIM) 1-07 mg by [facility]ukes 100 MG 13:43: mouth Medical tablet 19 daily. [place] aspirin 81 Yes 81mg QD Take 81 [...] 13:43: daily as Medical capsule 19 needed. [place] atorvastati Yes 40mg QD Take 0.[address] n (LIPITOR) 1-07 tablets [facility] 80 MG 00:00: (40 mg Medical tablet 00 total) by Center mouth daily. atorvastati 2021-0 Yes 40mg QD Take 0.5 CH I [...] phyllis 47 l gabapentin 2020-0 Yes 100mg Q.[id number] Take 100 [facility] (NEURONTIN) 1-09 [id number] mg by s t 100 mg 12:41: [...] phyllis 47 l gabapentin 2020-0 Yes 100mg Q.[id number] Take 100 [facility] (NEURONTIN) 1-09 [id number] mg by s t 100 mg 12:41: [...] phyllis 47 l gabapentin 2020-0 Yes 100mg Q.[id number] Take 100 [facility] (NEURONTIN) 1-09 [id number] mg by s t 100 mg 12:41: [...] phyllis 47 l gabapentin 2020-0 Yes 100mg Q.[id number] Take 100 [facility] (NEURONTIN) 1-09 [id number] mg by s t 100 mg 12:41: [...] Immunizations Ordered Filled Immunization Date Status Comments [facility] Immunization Name Name [place] [id number] 2020-07-13 Completed [facility]:00:00 [place] [address] 2020-07-13 Completed [facility] VACCINATION 00:00:00 [place] [address] 2020-06-22 Completed [facility] VACCINATION 00:00:00 [place] [address] 2020-06-22 Completed [facility] VACCINATION 00:00:00 [place] [address] Unknown Completed [facility] VACCINATION [place] [address] Unknown Completed [facility] VACC[facility] [place] [address] Unknown Completed [facility] VACC[facility] [place] [address] Unknown Completed [facility] Vital Signs Vital Name Observation Time Observation Value Comments Source HEIGHT 2020-05-26 13:26:00 179.8 cm WEIGHT 2020-05-26 13:26:00 98.249 kg HEIGHT 2023-03-04 12:12:00 175.3 cm WEIGHT 2023-03-04 12:12:00 91.581 kg HEIGHT 2023-03-04 09:57:00 175.3 cm WEIGHT 2023-03-04 09:57:00 92.216 kg HEIGHT 2023-03-04 12:12:00 175.3 cm WEIGHT 2023-03-04 12:12:00 91.581 kg HEIGHT 2023-02-18 12:17:00 175.3 cm WEIGHT 2023-02-18 12:17:00 86.955 kg HEIGHT 2023-02-18 12:17:00 175.3 cm WEIGHT 2023-02-18 12:17:00 86.955 kg HEIGHT 2023-02-18 10:21:00 175.3 cm WEIGHT 2023-02-18 10:21:00 86.093 kg HEIGHT 2023-02-18 10:21:00 175.3 cm WEIGHT 2023-02-18 10:21:00 86.093 kg HEIGHT 2023-02-09 13:52:00 174 cm WEIGHT 2023-02-09 13:52:00 84.823 kg HEIGHT 2023-02-09 13:52:00 174 cm WEIGHT 2023-02-09 13:52:00 84.823 kg HEIGHT 2023-01-21 13:51:00 175.3 cm WEIGHT 2023-01-21 13:51:00 91.309 kg HEIGHT 2023-01-21 13:51:00 175.3 cm WEIGHT 2023-01-21 13:51:00 91.309 kg HEIGHT 2023-01-21 08:33:00 175.3 cm WEIGHT 2023-01-21 08:33:00 90.765 kg HEIGHT 2023-01-21 08:33:00 175.3 cm WEIGHT 2023-01-21 08:33:00 90.765 kg HEIGHT 2023-01-07 13:04:00 172.7 cm WEIGHT 2023-01-07 13:04:00 89.359 kg HEIGHT 2023-01-07 13:04:00 172.7 cm WEIGHT 2023-01-07 13:04:00 89.359 kg HEIGHT 2020-05-26 13:26:00 179.8 cm WEIGHT 2020-05-26 13:26:00 98.249 kg Systolic blood 2023-02-18 12:17:00 157 mm[Hg] [facility] Diastolic blood 2023-02-18 12:17:00 69 mm[Hg] [facility] Heart rate 2023-02-18 12:17:00 62 /min [facility] Body temperature 2023-02-18 12:17:00 36.11 [facility] Respiratory rate 2023-02-18 12:17:00 18 /min [facility] Body height 2023-02-18 12:17:00 175.3 cm [facility] Body weight 2023-02-18 12:17:00 86.955 kg [facility] BMI 2023-02-18 12:17:00 28.31 kg/m2 [facility] Oxygen saturation in 2023-02-18 12:17:00 99 /min [facility] Arterial blood by Medical Ce nter Pulse oximetry Systolic blood 2023-01-07 13:04:00 135 mm[Hg] [facility] Diastolic blood 2023-01-07 13:04:00 67 mm[Hg] [facility] Heart rate 2023-01-07 13:04:00 60 /min [facility] Body temperature 2023-01-07 13:04:00 36.78 [facility] Respiratory rate 2023-01-07 13:04:00 20 /min [facility] Body height 2023-01-07 13:04:00 172.7 cm [facility] Body weight 2023-01-07 13:04:00 89.359 kg [facility] BMI 2023-01-07 13:04:00 29.95 kg/m2 [facility] Oxygen saturation in 2023-01-07 13:04:00 98 /min [facility] Arterial blood by Medical Ce nter Pulse oximetry Systolic blood 2022-12-04 12:50:00 128 mm[Hg] [facility] Diastolic blood 2022-12-04 12:50:00 67 mm[Hg] [facility] Heart rate 2022-12-04 12:50:00 60 /min [facility] Oxygen saturation in 2022-12-04 12:50:00 97 /min [facility] Arterial blood by Medical Ce nter Pulse oximetry Respiratory rate 2022-12-04 11:15:00 16 /min [facility] Body temperature 2022-12-04 07:00:00 36.22 [facility] Body height 2022-12-01 17:43:00 179 cm [facility] Body weight 2022-12-01 17:43:00 98.2 kg [facility] BMI 2022-12-01 17:43:00 30.65 kg/m2 [facility] Procedures Procedure Date / Time Performing Clinician Source Performed MAGNESIUM 2023-02-18 12:14:00 Mert Miller [facility] CBC W/PLT COUNT & AUTO 2023-02-18 09:48:00 Heth-GbenCarmelina coombsodun [facility] COMPREHENSIVE METABOLIC 2023-02-18 09:48:00 Sharan-Carmelina Garciaodu n [facility] HEPATITIS C ANTIBODY 2023-02-18 09:48:00 Angela [facility] HEPATITIS B PANEL 2023-02-18 09:48:00 Mert Miller [facility] CBC W/PLT COUNT & AUTO 2023-02-18 09:48:00 Heth-Gerson Garcia [facility] PROCEDURE, IN 2023-02-09 20:00:00 Virtual, Surgeon [facility] NON-OPERATING ROOM SETTING [facility] IR PORT-A-CATH PLACEMENT 2023-02-09 15:17:00 Mert Miller [facility] CBC W/PLT COUNT & AUTO 2023-02-04 08:59:00 Mert Miller [facility] COMPREHENSIVE METABOLIC 2023-02-04 08:59:00 Mert Miller [facility] MAGNESIUM 2023-02-04 08:59:[address] Mert Miller [facility] HEPATITIS B PANEL 2023-02-04 08:59:00 Angela [facility] HEPATITIS C ANTIBODY 2023-02-04 08:59:00 Mert Miller [facility] CBC W/PLT COUNT & AUTO 2023-02-04 08:59:00 Mert Miller [facility] COMPREHENSIVE METABOLIC 2023-01-21 09:37:[address] [facility] PANEL [facility] BILIRUBIN, DIRECT 2023-01-21 09:37:00 Dc Lopez [facility] CBC W/PLT COUNT & AUTO 2023-01-21 09:37:00 Dc Lopez [facility] DIFFERENTIAL [facility] PROTHROMBIN TIME/INR 2023-01-21 09:37:00 Dc Lopez [facility] HEPATITIS A ANTIBODY, IGG 2023-01-21 09:37:00 Dc Lopez [facility] HEPATITIS B SURFACE 2023-01-21 09:37:00 Dc Lopez [facility] ANTIGEN [facility] HEPATITIS B SURFACE 2023-01-21 09:37:00 Dc Lopez [facility] ANTIBODY [facility] HEPATITIS B CORE ANTIBODY, 2023-01-21 09:37:00 [facility] TOTAL [facility] HEPATITIS C ANTIBODY 2023-01-21 09:37:00 Dc Lopez [facility] IRON, TIBC, % SAT. 2023-01-21 09:37:00 [facility] FERRITIN 2023-01-21 09:37:00 Dc Lopez [facility] [id number]\\, 2023-01-21 09:37:[address] [facility] SERUM [facility] CERULOPLASMIN 2023-01-21 09:37:00 Dc Lopez [facility] ANTI-NUCLEAR ANTIBODY 2023-01-21 09:37:00 [facility] (SUZANNE[facility] ACTIN (SMOOTH MUSCLE) 2023-01-21 09:37:00 [facility] ANTIBODY, IGG [facility] MITOCHONDRIA M2 ANTIBODY 2023-01-21 09:37:[address] [facility] (IGG) [facility] ALPHA FETOPROTEIN (AFP), 2023-01-21 09:37:[address] [facility] TUMOR MARKER [facility] CBC W/PLT COUNT & AUTO 2023-01-21 09:37:[address] [facility] DIFFERENTIAL [facility] CBC W/PLT COUNT & AUTO 2023-01-07 16:38:[address] [facility] METABOLIC 2023-01-07 16:38:[address] [facility] CBC W/PLT COUNT & AUTO 2023-01-07 16:38:[address] [facility] CARBOH[facility] ANTIGEN 19-9 2023-01-07 16:38:[address] (CA 19-9) [facility] CT CHEST WITHOUT IV 2022-12-04 14:10:00 Jose Luis Reis [facility] CONTRAST [facility] MR ABDOMEN WITH & WITHOUT 2022-12-04 12:36:[address] IV CONTRAST [facility] XR CHEST 2 VIEWS 2022-12-04 09:45:00 Gina [facility] CARBOHYDRATE ANTIGEN 19-9 2022-12-04 04:01:00 Jose Luis Reis [facility] (CA 19-9) [facility] 2022-12-04 04:01:00 Jose Luis Reis [facility] PACEMAKER CHECK WITH 2022-12-04 00:00:[address] [facility] CBC W/PLT COUNT & AUTO 2022-12-03 12:49:00 Grant Orosco [facility] DIFFERENTIAL [facility] 2022-12-03 12:49:[address] [facility] PANEL [facility] CBC W/PLT COUNT & AUTO 2022-12-03 12:49:00 Grant Orosco [facility] DIFFERENTIAL [facility] REPORT OF PROCEDURE - 2022-12-02 14:55:[address] [facility] RE[facility] OF [facility]EDURE - 2022-12-02 14:48:09 Othman, Mohamed [facility] ENDOSCOPY URL [facility] TISSUE EXAM 2022-12-02 14:22:[address] [facility] EGD 2022-12-02 13:20:00 Rafalankur [facility] (ESOPHAGOGASTRODUODENOSCOP [facility] Y) ERCP, WITH SPHINCTEROTOMY 2022-12-02 13:20:[address] [facility] pascual [facility] PROCEDURE W/ C-ARM 2022-12-02 13:20:[address] [facility] ULTRASOUND, UPPER GI 2022-12-02 13:20:00 Rafalankur [facility] TRACT, ENDOSCOPIC, WITH [facility] FINE NEEDLE ASPIRATION ENDOSCOPIC RETROGRADE 2022-12-02 13:20:[address] [facility] CHOLANGIOPANCREATOGRAPHY, [facility] WITH BILE DUCT STENT INSERTION CBC (HEMOGRAM ONLY) 2022-12-02 05:38:00 Jackie Pak [facility] BASIC METABOLIC PANEL 2022-12-02 05:38:00 [facility] HEPATIC FUNCTION PANEL 2022-12-02 05:38:00 [facility] PROTHROMBIN TIME/INR 2022-12-02 05:38:00 [facility] ARRYTHMIA IMPLANT REPORT - 2022-12-01 00:00:00 Provider, Geo [facility] Plan of Care Planned Activity Planned Date Details Comments Source Future Scheduled 2024-02-[address] [facility] Test 00:00[facility]00 [facility] Screening (12+) [code = Tobacco Cessation Counseling and Screening (12+)] Future Scheduled 2023-12-[address] [facility] Test 00:00:00 [facility] r Screening (12+) [code = Tobacco Cessation Counseling and Screening (12+)] Future Scheduled 2023-12-[address] [facility] Test 00:00:00 [facility] r Screening (12+) [code = Tobacco Cessation Counseling and Screening (12+)] Future Scheduled 2023-12-[address] [facility] Test 00:00:00 [facility] r Screening (12+) [code = Tobacco Cessation Counseling and Screening (12+)] Future Scheduled 2023-03-07 SHINGLES VACCINES (1 Met [facility] Hospital Test 09:18:15 of 2) [code = SHINGLES VACCINES (1 of 2)] Future Scheduled 2023-03-07 RSV VACCINES > 60 YR [facility] [facility] Test 09:18:15 (1 - 1-dose 60+ series) [code = RSV VACCINES > 60 YR (1 - 1-dose 60+ series)] Future Scheduled 2023-03-07 65+ [facility]CCAL [facility] Test 09:18:15 VACCINE (1 - PCV) [code = 65+ PNEUMOCOCCAL VACCINE (1 - PCV)] Future Scheduled 2023-03-07 COVID-19 VACCINE (3 - [facility] Test 09:18:15 season) [code = COVID-19 VACCINE (3 - season)] Future Scheduled 2023-03-07 INFLUENZA VACCINE (#1) [facility] Test 09:18:15 [code = INFLUENZA VACCINE (#1)] Future Scheduled 2023-02-09 SHINGLES VACCINES (1 Met [facility] Test 10:50:58 of 2) [code = SHINGLES VACCINES (1 of 2)] Future Scheduled 2023-02-09 65+ [facility]OCOCCAL [facility] Test 10:50:58 VACCINE (1 - PCV) [code = 65+ PNEUMOCOCCAL VACCINE (1 - PCV)] Future Scheduled 2023-02-09 COVID-19 VACCINE (3 - [facility] Test 10:50:58 Pfizer series) [code = COVID-19 VACCINE (3 - Pfizer series)] Future Scheduled 2023-02-09 INFLUENZA VACCINE (#1) [facility] Test 10:50:58 [code = INFLUENZA VACCINE [...] Future Scheduled 2022-12-13 SHINGLES VACCINES ([address] [facility] Test 17:55:03 of 2) [code = SHINGLES VACCINES (1 of 2)] Future Scheduled 2022-12-13 65+ [facility] Test 17:55:03 VACCINE (1 - PCV) [code = 65+ PNEUMOCOCCAL VACCINE (1 - PCV)] Future Scheduled 2022-12-13 COVID-19 VACCINE (3 - [facility] Test 17:55:03 Pfizer series) [code = COVID-19 VACCINE (3 - Pfizer series)] Future Scheduled 2022-12-13 INFLUENZA VACCINE [facility] Test 17:55:03 [code = INFLUENZA VACCINE] [...] Center DEPRESSION SCREENING (12+)] Future Scheduled 2022-05-[address] [facility] Test 00:00:00 (12+) [code = Medical Center DEPRESSION SCREENING (12+)] Future Scheduled 2022-05-25 FALLS RISK SCREENING [facility] Test 00:00:00 [code = FALLS RISK Medical C enter SCREENING] Future Scheduled 2022-03-30 HEPATITIS B VACCINES Met [facility] Test 22:04:28 (1 of 3 - 3-dose series) [code = HEPATITIS B VACCINES (1 of 3 - 3-dose series)] Future Scheduled 2022-03-30 SHINGLES VACCINES (1 Met [facility] Test 22:04:28 of 2) [code = SHINGLES VACCINES (1 of 2)] Future Scheduled 2022-03-30 65+ [facility]OCOCCAL [facility] Test 22:04:28 VACCINE (1 - PCV) [code = 65+ PNEUMOCOCCAL VACCINE (1 - PCV)] Future Scheduled 2022-03-30 COVID-19 VACCINE (3 - Me [facility] Test 22:04:28 Booster for Pfizer series) [...] Cessation Counseling and Screening (12+)] Future Scheduled 1939 PNEUMOCOCCAL 65+ YRS [facility] Test 00:00:00 (1 - PCV) [code = Medical Ce nter PNEUMOCOCCAL 65+ YRS (1 - PCV)] Future Scheduled 1934-01-05 COVID-19 VACCINE (#1) [facility] Test 00:00:00 [code = COVID-[address] VACCINE (#1)] Future Scheduled 1934-01-05 COVID-19 VACCINE (#1) [facility] Test 00:00:00 [code = COVID-[address] VACCINE (#1)] Encounters Start End Encounter Admission Attending Care Care Encounter Source Date/Time Date/Time Type Type Clinicians Facility Department ID 2023-02-06 Outpatient EL [facility] Surgery [id number] [facility] 06:56:15 2022-12-04 Inpatient ER SMILEY [facility] [id number] [facility] 12:27:02 JOSE LUIS 2022-12-04 Inpatient ER GINA NAPOLES [facility] [id number] [facility] 09:17:05 2020-05-26 [id number] 12:59:00 ERIKA 2023-07-23 2023-07-23 Outpatient EL SLE SLE [id number] [facility] 00:00:00 00:00:00 2023-04-15 2023-04-15 Outpatient KOLBY MILLER [facility] SLE [id number] [facility] 00:00:00 00:00:00 TANNVT 2023-04-15 2023-04-15 Outpatient EL SLE SLE [id number] [facility] 00:00:00 00:00:00 2023-04-01 2023-04-01 Outpatient KOLBY MILLER [facility] SLE [id number] [facility] 00:00:00 00:00:00 [facility] 2023-04-01 2023-04-01 [facility] [id number] [facility] 00:00:00 00:00:00 2023-03-18 2023-03-18 Outpatient KOLBY MILLER [facility] 3 [id number] [facility] 00:00:00 00:00:00 [facility] 2023-03-18 2023-03-18 Outpatient EL [facility] SLE [id number] [facility] 00:00:00 00:00:00 2023-03-18 2023-03-18 Outpatient KOLBY MILLER [facility] 3 [id number] [facility] 00:00:00 00:00:00 TANNVT 2023-03-04 2023-03-04 Outpatient KOLBY MILLER [facility] 3 [id number] [facility] 11:40:16 23:59:00 TANNVT 2023-03-04 2023-03-04 Outpatient KOLBY MILLER [facility] SLE [id number] SLE[facility] 09:53:14 13:14:39 TANNVT 2023-03-04 2023-03-04 Outpatient EL SLE SLE [id number] [facility]H 09:35:55 09:35:55 2023-02-19 2023-02-[address] [facility] [id number] [facility] 2023-02-18 2023-02-18 Outpatient KOLBY MILLER [facility] [id number] [facility] 11:24:39 23:59:00 [facility] 2023-02-18 2023-02-18 [facility] [id number] 10:45:00 23:59:00 Encounter [facility] 2023-02-18 2023-02-18 [facility] [id number] 10:00:00 14:44:23 Visit [facility] 2023-02-18 2023-02-18 Outpatient KOLBY MILLER [facility] [id number] SLE 09:55:10 14:44:23 [facility] 2023-02-18 2023-02-18 Outpatient [facility] [id number] SLE 09:41:33 09:41:33 2023-02-11 2023-02-11 Outpatient ANGELA [facility] 2 [id number] SLE 00:00:00 00:00:00 [facility] 2023-02-11 2023-02-11 Orders Heth-Gbenl [facility] [id number] 00:00:00 00:00:00 Only Gerson thurman [facility] 2023-02-10 2023-02-10 Telephone Manuel, [facility] [id number] 00:00:00 00:00:00 [facility] 2023-02-09 2023-02-09 [facility] [id number] 10:55:00 16:15:00 Encounter [facility] 2023-02-09 2023-02-09 Outpatient KOLBY MILLER [facility] Surgery [id number] SLEH 10:50:51 16:15:00 [facility] 2023-02-09 2023-02-09 Surgery [facility], [facility] [id number] 12:00:00 12:47:00 Surgeon [facility] 2023-02-09 2023-02-09 Travel [facility] [id number] [facility] 00:[facility]00 00:00:00 [facility] 2023-02-07 2023-02-07 Telephone Lesli [facility] [id number] 00:00:00 00:00:00 [facility] 2023-02-04 2023-02-04 [facility] [id number] 09:04:43 23:59:00 Encounter [facility] 2023-02-04 2023-02-04 Outpatient KOLBY MILLER [facility] SLE [id number] SLEH 09:04:43 23:59:00 [facility] 2023-02-04 2023-02-04 Outpatient KOLBY MILLER [facility] SLE [id number] SLEH 11:41:49 12:41:06 [facility] 2023-02-04 2023-02-04 [facility] [id number] 09:00:00 12:41:06 Visit [facility] 2023-02-04 2023-02-04 Treatment KOLBY Miller [facility] [id number] 08:45:00 09:00:00 [facility] 2023-02-04 2023-02-04 Outpatient SLE SLE [id number] SLEH 08:47:52 08:47:52 2023-02-04 2023-02-04 Outpatient KOLBY GARSIA, SLE SLE [id number] [facility] 00:00:00 00:00:00 [facility] 2023-02-03 2023-02-03 Telephone Marianne [facility] [id number] 00:00:00 00:00:00 [facility] 2023-02-02 2023-02-02 Outpatient SLE SLE [id number] SLEH 00:00:00 00:00:00 2023-02-02 2023-02-02 Outpatient EL SLE [facility]H [id number] [facility] 00:00:00 00:00:00 2023-01-29 2023-01-29 Outside Angela [facility] [id number] 00:00:00 00:00:00 Orders [facility] 2023-01-28 2023-01-28 Video - KOLBY Miller [facility] [id number] 11:20:00 12:04:12 [facility] 2023-01-28 2023-01-28 Outpatient JENNIFER GUNN SLE [id number] SLE 11:16:04 12:04:12 [facility] 2023-01-28 2023-01-28 Outpatient KOLBY GARSIA SLE SLE [id number] SLE 00:00:00 00:00:00 PRNICESS 2023-01-22 2023-01-22 Telephone Marianne [facility] [id number] 00:00:00 00:00:00 [facility] 2023-01-21 2023-01-21 Office Angela [facility] [id number] 14:00:00 15:24:50 Visit [facility] 2023-01-21 2023-01-21 Outpatient IGNACIO GUNN [facility] [id number] SLE 12:10:12 15:24:50 [facility] 2023-01-21 2023-01-21 Office EL Keniaeril [facility] [id number] 08:00:00 09:00:00 Visit , [facility] 2023-01-21 2023-01-21 Outpatient EL CHOLANKERIL SLE SLE [id number] SLE 07:44:02 07:44:02 , PRINCESS 2023-01-19 2023-01-19 Tumor Angela [facility] [id number] 00:00:00 00:00:00 Board [facility] 2023-01-07 2023-01-07 Outpatient EL SLE SLE [id number] SLE 16:31:44 16:31:44 2023-01-07 2023-01-07 Office Carlos Colon [facility] [id number] 15:40:00 16:06:16 Visit [facility] 2023-01-07 2023-01-07 Outpatient IGNACIO ANTON [facility] [id number] SLE 14:45:03 16:06:16 [place] 2023-01-07 2023-01-07 Treatment [facility] [id number] 14:55:00 15:10:00 [facility] 2023-01-07 2023-01-07 Office KOLBY Miller [facility] [id number] 13:00:00 14:21:35 Visit [facility] 2023-01-07 2023-01-07 Outpatient IGNACIO GUNN [facility] [id number] [facility] 12:34:21 14:21:35 [facility] 2023-01-05 2023-01-05 Telephone Tripp [facility] [id number] 00:00:00 00:00:00 [facility] 2022-12-17 2022-12-17 Outpatient IGNACIO GUNN [facility] [id number] SLE 00:00:00 00:00:00 [facility] 2022-12-17 2022-12-17 Telephone Aamirdishadesi [facility] [id number] 00:00:00 00:00:00 [facility] 2022-12-17 2022-12-17 [facility] [id number] 00:00:00 00:00:00 [facility] 2022-12-01 2022-12-04 [facility] Alphonse King [facility] [id number] [facility] 16:08:00 18:24:00 Encounter Ellen [facility] 2022-12-01 2022-12-04 Inpatient ER SMILEY, [facility] Gastro [id number] SLE 16:08:00 18:24:00 JOSE LUIS 2022-12-04 2022-12-04 Inpatient ER CHANGEIKE [facility] [id number] [facility] 10:08:27 00:00:00 JACKIE 2022-12-04 2022-12-04 Orders Rosalba Chau [facility] [id number] 00:00:00 00:00:00 Only [facility] 2022-12-02 2022-12-02 Surgery Otankur, [facility] [id number] 14:33:00 15:59:00 [facility] 2022-12-02 2022-12-02 Anesthesia Jimbocamiladewey, [facility] [id number] 13:36:00 15:19:00 Event [facility] 2022-12-02 2022-12-02 Outpatient ER RAFIA [facility] [id number] [facility] 15:00:02 15:00:02 [facility] 2022-12-01 2022-12-01 Travel [facility] [id number] [facility] 00:[facility]00 00:00:00 [facility] 2020-07-13 2020-07-13 Outpatient [facility] [id number] [place] 00:00:00 00:00:[address] 2020-06-22 2020-06-22 Outpatient [facility] [id number] [place] 00:00:00 00:00:[address] 2019-05-31 2019-06-02 Inpatient ANDREIA, [facility] [id number] [place] 00:00:00 00:00:00 GINA Yee [facility] Results Test Description Test Time Test Comments Results Result Comments Source COMPREHENSIVE METABOLIC PANEL 2023-03-04 10:41:02 Test Item Value Reference Range Interpretation Comme nts TOTAL PROTEIN (BEAKER) 6.0 gm/dL 6.0-8.3 (test code = 770) ALBUMIN (BEAKER) (test 3.4 g/dL 3.5-5.0 L code = 1145) ALKALINE PHOSPHATASE 285 U/L 40-150 H (BEAKER) (test code = 346) BILIRUBIN TOTAL (BEAKER) 0.6 mg/dL 0.2-1.2 (test code = 377) SODIUM (BEAKER) (test 142 meq/L 136-145 code = 381) POTASSIUM (BEAKER) (test 3.7 meq/L 3.5-5.1 code = 379) CHLORIDE (BEAKER) (test 107 meq/L 98-107 code = 382) CO2 (BEAKER) (test code 29 meq/L 22-29 = 355) BLOOD UREA NITROGEN 9 mg/dL 7-21 (BEAKER) (test code = 354) CREATININE (BEAKER) 1.06 mg/dL 0.57-1.25 (test code = 358) GLUCOSE RANDOM (BEAKER) 114 mg/dL 70-105 H (test code = 652) CALCIUM (BEAKER) (test 8.4 mg/dL 8.4-10.2 code = 697) AST (SGOT) (BEAKER) 43 U/L 5-34 H (test code = 353) ALT (SGPT) (BEAKER) 41 U/L 6-55 (test code = 347) EGFR (BEAKER) (test code 68 mL/min/1.73 sq Interpretation of eGFR values = 1092) m Stage Descripti on Result G1 Normal or high >=90 G2 Mildly decreased 60-89 G3a Mildly to moderately 45-5 9 G3b Moderately to severely 30- 44 G4 Severly decreased 15-29 G5 Kidney failure <15Repo rted eGFR is based on the CK D-EPI 2020 equation that d oes not use a race coefficien tEstimated GFR is not as accurate as Creatinine Clearance in pr edicting glomerular filt ration rate. Estimated GFR i s not applicable for dialysis yelitza gates [id number] 10:40:16 Test Item Value Reference Range Interpretation Comments MAGNESIUM (BEAKER) (test code = 1.8 mg/dL 1.6-2.6 627) CBC W/PLT COUNT & AUTO [id number] 10:31:17 Test Item Value Reference Range Interpretation Comments WHITE BLOOD CELL COUNT (BEAKER) 7.7 K/ L 3.5-10.5 (test code = 775) RED BLOOD CELL COUNT (BEAKER) 2.97 M/ L (test code = 761) HEMOGLOBIN (BEAKER) (test code = 9.9 GM/DL 13.7-17.5 L 410) HEMATOCRIT (BEAKER) (test code = 29.5 % 40.1-51.0 L 411) MEAN CORPUSCULAR VOLUME (BEAKER) 99 fL 79-92 H (test code = 753) MEAN CORPUSCULAR HEMOGLOBIN 33.3 pg 25.7-32.2 H (BEAKER) (test code = 751) MEAN CORPUSCULAR HEMOGLOBIN CONC 33.6 GM/DL 32.3-36.5 (BEAKER) (test code = 752) RED CELL DISTRIBUTION WIDTH 14.2 % 11.6-14.4 (BEAKER) (test code = 412) PLATELET COUNT (BEAKER) (test 342 K/CU MM 150-450 code = 756) MEAN PLATELET VOLUME (BEAKER) 9.4 fL 9.4-12.4 (test code = 754) NEUTROPHILS RELATIVE PERCENT 72 % (BEAKER) (test code = 429) LYMPHOCYTES RELATIVE PERCENT 15 % (BEAKER) (test code = 430) MONOCYTES RELATIVE PERCENT 10 % (BEAKER) (test code = 431) EOSINOPHILS RELATIVE PERCENT 3 % (BEAKER) (test code = 432) BASOPHILS RELATIVE PERCENT 0 % (BEAKER) (test code = 437) NEUTROPHILS ABSOLUTE COUNT 5.48 K/ L 1.78-5.38 H (BEAKER) (test code = 670) LYMPHOCYTES ABSOLUTE COUNT 1.16 K/ L 1.32-3.57 L (BEAKER) (test code = 414) MONOCYTES ABSOLUTE COUNT (BEAKER) 0.74 K/ L 0.30-0.82 (test code = 415) EOSINOPHILS ABSOLUTE COUNT 0.20 K/ L 0.04-0.54 (BEAKER) (test code = 416) BASOPHILS ABSOLUTE COUNT (BEAKER) 0.03 K/ L 0.01-0.08 (test code = 417) IMMATURE GRANULOCYTES-RELATIVE 0.50 % 0.00-1.00 PERCENT (BEAKER) (test code = 2801) HEPATITIS B [id number] 14:49:06 Test Item Value Reference Range Interpretation Comments HEPATITIS B CORE TOTAL ANTIBODY Nonreactive Nonreactive (BEAKER) (test code = 497) HEPATITIS B SURFACE ANTIBODY < mIU/mL <8.0 (BEAKER) (test code = 647) HEPATITIS B SURFACE ANTIGEN (2) Nonreactive Nonreactive (BEAKER) (test code = 2585) [employer] ID - ADMINHEPATITIS C [id number] 14:47:41 Test Item Value Reference Range Interpretation Comments HEPATITIS C ANTIBODY (BEAKER) Nonreactive Nonreactive (test code = 367) [employer] ID - [id number] 12:25:59 Test Item Value Reference Range Interpretation Comments MAGNESIUM (BEAKER) (test code = 1.7 mg/dL 1.6-2.6 627) COMPREHENSIVE METABOLIC [id number] 10:32:02 Test Item Value Reference Range Interpretation [...] patien ts CBC W/PLT COUNT & AUTO [id number] 10:16:06 Test Item Value Reference Range Interpretation [...] PERCENT (BEAKER) (test code = 2801) Tissue [id number] 14:43:25 Test Item Value Reference Range Interpretation Comments Case Report (test code Surgical Pathology = 104) Report Case: [id number] Authorizing Provider: Konstantin Morataya, Collected: 12/02/2022 02:22 PM Ordering Location: [address] Received: 12/03/2022 12:07 PM Service Pathologist: Ivonne Guerrero MD Specimen: Pancreas, Head, Head of Pancreas Mass BX via FNB DIAGNOSIS (test code = [id number] 3220) ukmcCeRWAkfBAzM6Cvhylw HUdnXH7cTJ2bxEglxAPxgG ByIQAgNiJbo0xiy999aDQr t4usUZTLgfqxjTk3lMucD7 1ht9V1MaqvY6suNJXwQVNd W3UgFT1kAKJnzKMzJ1arLB QwXGdyZWVuMFxibHVlMDt9 XHBhcGVydzEyMjQwXHBhcG QheES7PUHeDM0hqxciOYcc CUyjNOSvjnB2FRFlsZEuS8 NbCAAjAP6wmoerPNL4GRhh NRZhQEJ5BjHlIMGbo9Zkjw v3ChOrlLBmJPclaAJjjehc czIwXGNmMSBUSEUgRElBR0 1OT4dZOPtDQsMCBRNFUNWP RO9OCAJbDhJADVULYCZLBM EVH8GREZHDHbXTPKEOU1NI PaZFLe0YIOQYIoFMTcGFS9 yJXTGZIHUUN7WUNlJVCz1Y YVufUf5JXG4MQU4UQBXXV3 JLX0BNI57aENUmBDLYHRwR NJISOGDCBK6RNciqB23ESx DRZF0GLJYSZlApVVUYDMMV A78PJQNXFDgIXBVKJOJBGf SYQw3UVBjOAjDWVnDTGFYJ TkNSRUFUSUMgTUFTUyBCWS XEADOKBB6NNrswBBAaB3Ut EHMkcqQIFiCSUT3PSyPGYM lDIEhFQUQgTUFTUywgVVMt Y3HMJKQSRE4MYYQXAMTEU8 RQUFOPL1QVHNnltKJtCZWb qgUvDYXvFpOFjgGmo5s6KJ BpYSNuk4WzzpYerg8rUNcs b0InVHExzX7ndkNtjUDqCW XvAXksPZUxKnBbIrb5AFDm mQHoPFXgUga6USChsRZoDM ISpGoxiN2rIYCpwPijvG8w lWC7YKTzovQhoZADjC9iNU FLkM3jAiS2PGJvIrv4MOSi NzFccGFyfQ== COMMENT (test code = x7fynYQyFHGbtVRpZNOsK8 8478) l8pZTsl7D4agbhKX1mdYsq vNp8zRneKXYkjvO7mGFoLL jdm7vzNPD2g5rczjurIZCr CNnoCj4daYSuhDynTzVmXK BlEWg1cQ27SJKtsJ1mhFUn IDtccmVkMFxncmVlbjBcYm d1KNJ5lNykEDVsgicoJjO7 CByoQTGcyaupAJg2ANktBK BdvPF9EMFkcNQaO8HgURNy GK5pbpw5GAD8XWeaYWSaNg V7MWKkqUNvYFPghIjtJSgq k027CRG1YjGqZWVpagDmnQ bebH0tJdWxCMwuEgFtJNbt IJDxddZmXDG2cMTfVwuyoB S7CTVqy0utVJRgTNXekGzx TP68oOdyYuTiG82bveMtTK 1aBYUbvxggrxFoFA4qlsTc gNshAZSohlReZ7f7kKNfl5 h0kRArLN3qNAAzvMCtpXDp MOVdGmZmp6kuEQJyGFChqN UhpivrHSduBgxhtK4rgK8g eSBpbmZpbHRyYXRlLlx+XH BhclxwYXIgVmVyeSBmZXcg PAM7jEtbMTsmL6efdjCgQN FyZSBzZWVuIGVtYmVkZGVk XIgsUIBpZPBkdPYiy6FxWV A1hy5qDHGuinNxv7SyCWKu f28wtCHwaR6iaQVlJFP8fD dvEWpgK3QbsIDpNKMqlrZA fLNyVvjtCIklR8NrUQUpRD Mec21ngSR3NM06VItcdIrw EQ0vaN5lgWz4hnM6wK7mLR G6U3FylGVaCWQye6BibgYa pl4dYZ9hoUKmEDAjseAZOa iko2FlZMK2mQAawUOoGByr xV84CFVccmE4sFWfaOGrl1 YbKMsjw5Txk18aoHPbB8Lr f3coYwtljEjpyhAqw2NnGI 2zwcBtymOgoPA0mL7jjX5i eMHlUM2czMJvMNLoMJabUV Ttx1YwbXPderDnpxRlMZC1 YXRlIGZvciBhbmNpbGxhcn dgy3O4EHogcz9jzFCieJ== CPT Code(s) (test code e4gtbIKoPIQmrOTlVNKuU0 = 3357) tqhjOzKXPneUCiI0Djcukt IUsmAQ4vHL8izWggfFFhdA ZwOSZmVdNka0xia877eCEl k5ycVOMIUHoaQCHGDKn2o7 xsLDAFisxhfCl3cQlcU53d j6T1LfazT54tlTYdBTP7VD EfCGWffMPcHXVuSFQ5AEQv lSRiV8wdIIJqOO8jqlnjBS pqSKoqLMJftZX6EHYxzDQr Q9LuSBZbSPysOVPfrqb0Xd VoCn8esVAcoUnmOMmnVVWu XHBsYWluXGYxXGZzMjAgOD gzMDcsODgzNDJccGFyfQ== CLINICAL HISTORY (test g7djlEJnQLAobXTmXIUsZ0 code = 3356) pcikUnRCGcfEHzO7Imwlxo AQsrCY1nPS8noGntpPOzaR YsKWGmXcSur9ipe419jMLt q4yrPXNZfcklnXx1vKcmY9 8pm0R4UzspP95cdXFbTQN3 OZNqVNIppHUuDZNzHFO1NP IdsHZqV6krCGQuMT9syamw FKseHDydFNLpaPB2YKJaoY HpQ2HzAZQaBBgqFSSddme0 ElLyZf8oyGJxkZivHYgrCK JkXHBsYWluXGZzMjAgUGFu N9OsAVMkGiAoWFTtSLHtwv 0= GROSS DESCRIPTION (test e2ylmUAuMVStgPTEJDSnBK code = [id number]) OgZI7ufZihmJq6oMsmEXDu wvF7xEGrFWcbb0zkELC9v6 pwkvOLSvbvUAUyXZ8mFSnh NUUbLE8wZlIjCXMfEgOfNN BhcGVydzEyMjQwXHBhcGVy rJC0GZCtUE1jnlawFRnlPQ pqRFGuzoA3RBEhvIBkF9Ur KNGqZI6smvdrECU2VCJJBb laOz9oeJAxtAfdFlZsCaZl YXJzZXQwXGZuaWwgQXJpYW v4aZ2SBbogS28lp9G1Kll5 NPGuEGEkB2GiOB2fKSWqbM PfW61WJfxdPGZ3JZLNWxry PlwcoHknl1VtdRYtSOZvVV xcaWQgNTEwMDAgXFxkYiBP QnVbAtUdIEVyCmQ4OOBpWA p4BJsaSuMSOEA4HIIaYxLo YBx3KXqfHUbueFHyOEDmGW OtBPByJNnqelL0r0rxUQWx vGDrCVE2WPzvv5whSUrtLS E8NAUpFcZvRQFeBB6ABeQe VNQpTTYdOqi4WtM4HSg1DJ QVUqZuGsKpYgIlKEK0HqVd UDv4XUv1AAqOJrZ3OhI7Sq JeXpTkXTR5RrSaOUm5CIIp XFxzcyAzIFxcZmwgXFxuY3 1ccGFyZCANClxwbGFpblxm czIyIEEuIFBhbmNyZWFzLC BIZWFkXHBhciANClxwYXJk IR4CUMYzNFtyDIGzEmPwfN BiO0fdQOTcR47gs4DCg8Iu WS0OWMt9arDtdzntjT6rWL MlanKgZQcnB6UrBYJcLgLe QxXsNIw2NRJfuX4hZp6gyG TfkJ9fjEVsRBecQVE1mDEs BZLpGADuEBWyIX75BToMDX MgbmFtZSwgbWVkaWNhbCBy ZWNvcmQgbnVtYmVyIGFuZC UhpDotMvIkCUb1L6DqpjOm ZWFzIGhlYWQiIGlzIGEgMS 41LRtcEE6pBXtbHI5fYFBh XYZtS0LeA9A1KIMkGsU0RE 2pzgPuFAYuXwLniVhza3Fx OQZnjyAzXOT6xTzrsQQotd Srr8SrlWb7sZKiKUqpRSWm bB2otY1yFCTykOhoBUHrPZ k4RoLlVgzgMKQfDBtwwIXs ZY5BBDIiIoCaNYWcP1hcPT MlAN4UBCIfHNgaogPwRYdt eLU9qyEOQS8qei2KKFKxiC QZLSW2YR4sKGstFLKsR5Ds W6OnolK1k4kyyYiqs6AgqN ZtGC9gmCFpTO7OXTYpkrNr DQp9 SPECIAL STUDIES (test r5dniCNhDLOlk9pwIPXxhK code = 3373) FuZzEwMzNcZnRuYmpcdWMx UIimzwRuYWcmt9PoR5CnUs AwMFxhbnNpXGRlZmxhbmcx MGTgRWJ0isQfHUXzMCyvTZ IyMRmyJx2ksYSmvPouDaCe AVLgu4eebqTDpvcggTt2c0 hlZSWxAuL0kXNlZWltL8so pnBsdTZqV7RveRGosAu1d6 knIgPaKnK6jBWoOUzuX7cl tkRwhFRqDBVmCPz1vC47FD NxaY8ddUPyDGfithOmGrP7 AFylSBMaDtT1XUZgiNOkJS IwT0gfJHRsFSwfHPEiZVwc wLYpLTE6bDgwp8C7pXUbaD RuzKkxAcOsTsPmEaHRz2Gw FFf5aZeuD1ByQBHqYtY2eQ QgUGFyYWdyYXBoIEZvbnQ7 fWejeaOxs54otSJeYNQkCK TeLiRwbOjwDWCbJFCQa5Yi sQgiXSN4hSg0cCnuRfcbLR Q9Ter2XQ2yvp95ceh4cOca KJQuntwlQqK2XSfcVDTjjt iyONf9XDvdKRKsbQT7NZEv yILdZ3RqUXNiYI9tpns3SZ T9SZmiBCMdHoQ0FXOlgAYi HJFoiKwhDVswy048XZL3Gj QuUD3tP5Htv5F3cR3tiVOg GIIibNSiIrXsYXZewz4coJ WgSHwoa0NhNNQ6djO6tJGx nEXrFKYkVS83Dyfdr8EoWb ktn2UrF79miQP9IKkci2js HU2cCqH7mzWlUQjmp1xxfY 0jBlM8NQegGQ0sZT9vYQSd cT8cxpwnHTVuQcWyjhujXD VxqMeudfKjLf5ebPunWNL5 JBpqH0rhcM8jEoE3IAfuI6 ikfD2rLUt4ZTufvOH4FYWm gV4qDA5kcijlo6ohODrhVS bzBXVpmzC7nkM9DTXjdQUw E7JdfE4vCMOdBI0zfzwrx7 grDOK2IXcuTBUaKTC2NzDp FHApa1Joxta3EhKdk1GjrT BlKYhpC24wb459VREzgmOg Y7vqaRSngaezaYYoulowNF mrhpZ2XUDlTIFzXUixLKMb XGZzMjJcbGFuZzEwMzNcaG ljaFxmMVxkYmNoXGYxXGxv Q8mkSrJbF2TaVILpWzTmBP muRFeogLBcwTKihKR8bJ7m XF7iEKWtxTJtD6HcBLHejf LynUOfYRA9cSTphVAtSP1j IBfweTSfa4flh7JhP0etvH eosRC8YI0pVJErXOKtODol j8HepN8zYtlacKCguchrLH xmczIyXGxhbmcxMDMzXGhp N4diQdHmHMYciZjjXWxdr4 NoXGYxXGNmMlxmczIyXGx0 cmNoXHBhclxwYXJccGxhaW 8uSsBbKuJcBwcvHZ5dZOEg Q2synDTcTVPeHEMaI3mjAh BndD4pjJuhDGjgFpFrJfBh WfJSr659pj9lPKSacOCymi UOmZIgyR9gBPryRAvtSMrc mXGwDPhan7wsLKNgf6o8oH QhBYXxoeOnp1bfZAdzumTk CNXnmDZncIYuHUStf27jKZ ftkSlxwAugNANik2KfmLyu p7RtPfFoPDjlx9GyL97fmJ JvbCBzbGlkZXMgcnVuIGFs b89pt9geSVHyOjY2iTMcgK K1fNJvcQTmq3EbrQkcJWUj v1brJTIrcf6vcpxmmIGvr4 IbeJ5sivhiASmgaVXjsfLo XQUnu8a4vPDhXAQnJBLcNK ljuNu0FDVbb899uj1thbJ1 lBWcYVA3TKtsPYFoJQNlyf UgZXZhbHVhdGVkXHBsYWlu XGYxXGZzMjJcbGFuZzEwMz NcaGljaFxmMVxkYmNoXGYx TKasS7tjZkSwT5FiQWRaGt BloAMwD4uniTVhECSqGMob XGYxXGZzMjJcbGFuZzEwMz NcaGljaFxmMVxkYmNoXGYx IJewH5vvKmIwA4OnYVMvVo IgIFxwbGFpblxmMVxmczIy WYowrdexRXDmFPdaT3rzJx RpLKYoiZmrIVgxk0XuFSVs WSKpIhotzzPqPGz0chCsYM BhclxwbGFpblxmMVxmczIy HYbzgfljQMDhLIudM5ulTd WxVHUiiVwmNTnvy4RdTKAt XGNmMlxmczIyIEltbXVub2 ijr0ImT5kslUqtfOP4FYRf V3cakUVtbJW4YJF0bP3bMD mfnlOdYASbp6UrQDTpMMZl DoD6eF0rARX4QmMBzSowDJ BsYWluXGYxXGZzMjJcbGFu ZzEwMzNcaGljaFxmMVxkYm IjNUNqBElzS1jhRgQuY1Wv GPYaRaNeqEwdUSpnIVi1Rr xwbGFpblxmMVxmczIyXGxh tnfgPMAtKQwqX6ogIlVaBK XtzVkuSLolw0OgYWKvOEMs MlxmczIyIHMgTWVkaWNhbC IASC47HTRkFIErlMknqX3b xWKKVXKoilC4d2E2VLrwNP UuVBj8JXxrnkHyVBUvuM1n JOYdZR6gKQi0zuZfNOEim4 SiFY7xPFCnpYQpUFA4FZGu h0TsG1Lmx9DoAJPzYHRolf 4jtmNwPmXWcITdUZIchc12 JFJzJV1jA8hoKQTkORBceg GmcSOuh6OqKGFtjFN0cRWq EN2XPmRNa09rOFUjOUVAjp AoSWTyeRqrmKA3xjX6sH4x LiBUaGUgRkRBIGhhcyBkZX Iuph4bxoFzPWZlOSBwj0Hw pTEcwTVtqcTrX1Aoc1KbHP Mimr60RSxzpFHzop25ZI6n J4Xrr7WyzR4rTKixTZCse6 OjyYAleXOqVMRiq9VkR5lc mcspUXnrcNJdjA4pPGDsAP b8VLCdz1EbSLLyc2HtCyPw qhEjODHbSBPyLSXzgY98UP T0kRmctLolmoLlFN0wFOJk shWgMSIoATVwiC9tDHrhbx ZcAKXygfU2r5C7FAwjBPFx hjIfYryfTNP4qpPgzmB3eR KvC0eqwgwjTNzdCOWdu6Hn iD7bvTIMhNNrh5GajLFjrS XLiVUsQZ6unuYgFL9wOOK3 ODggKENMSUEtODgpIGFzIH W4KPljGudeLVO3omVcWTYc p9TeMPkaC2kkA92cpJeicA e4oQAgkSfzgUOaqOPfBLAd ouN5d4D5ETLwt3ChzujkXP BsYWluXGYyXGZzMjJcbGFu ZzEwMzNcaGljaFxmMlxkYm QtXQVkRNkaE3rfNqJjNaGi PfnzMGE0bM== [facility]ISS[facility] [id number] 14:43:25Surgical Pathology Report Case: [id number] Authorizing Provider: Konstantin Morataya, Collected: 12/02/2022 02:22 PM Ordering Location: [address] Received: 12/03/2022 12:07 PM Service Pathologist: Ivonne Guerrero MD Specimen: Pancreas, Head, Head of Pancreas Mass BX [id number] THE DIAGNOSIS HAS BEEN AMENDED FROM SUSPICIOUS FOR ADENOCARCINOMA TO INVASIVE ADENOCARCINOMA, FOLLOWING DISCUSSION AT MULTIDISCIPLINARY CONFERENCE AND ADDITIONAL CLINICAL INFORMATION OF A PANCREATIC MASS BY IMAGING.A. PANCREATIC HEAD MASS, US-GUIDED NEEDLE CORE BIOPSY:-Invasive adenocarcinoma, seecomment Signing Pathologist Direct Phone Line: [phone] electronically signed by Ivonne Guerrero MD on [...] noncontributory. The biopsy is inadequate for ancillary studies.[id number] massA. Pancreas, HeadReceived in formalin labeled with [...] evaluated Immunohistochemistry technical testing was performed at [facility], Pathology Laboratory where it was developed and its performance characteristics were determined. It has not been cleared or approved by the U.S. Food and Drug Administration. The FDA has determined that such clearance or approval is not necessary. The test is used for clinical purposes. It should not be regarded as investigational or for research.This laboratory is certified under the Clinical Laboratory Improvement Amendments of 1988 (CLIA-88) as qualified to perform high complexity clinical laboratory testing.IR PORT-A-CATH [id number] 15:45:58 [facility] : 1935 Sex: MRight [...] the patient's medical record by the nurse. Field Sales Associate: Pankaj Bhagat MDAssistant: None. 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 Ultrasound evaluationshowed a patent and compressible right internaljugular vein, which waspunctured under direct real-time ultrasound guidance with amicropuncture needle. An ultrasound image was saved to PACS. A 0.018 inch wire was placed through the needle into the right atrium. A4 Telugu micropuncture sheath was placed and a 0.035 wire was advancedinto the IVC. A subcutaneous tunnel and pocket were created in the rightanterior chest wall by blunt dissection. The po cket was flushed withantibiotic solution. A 6 Telugu Bard single lumen power injectable portwas placed within the pocket and the catheter brought through thetunnel. The catheter was cut at 24 cm. A peel-away sheath was placed inthe right IJ vein and the catheter was advanced through the sheath, withits distal tip terminating in the superior right atrium. The peel-awaysheath was removed. The port was flushed and aspirated easily followingplacement. The skin incision was closed with 3-0 Monocryl andDermabond. The small jugular incision site was closed using Dermabond. The patient tolerated the procedure well and left the department in thesame condition. Results: Spot radiograph of the chest demonstra emilia the new right [id number]-[id number] to lie in the expected position with its tip overlying thesuperior right atrium. IMPRESSION:Impression: Successful, uncomplicated placement of a right internal jugular chestport using sonographic and fluoroscopic guidance and conscious sedation.The port is ready for immediate use. Electronically Signed By: Pankaj Bhagat MD02/09/2023 15:48 CDTWorkstation Name: [id number] 14:13:52 Test Item Value Reference Range Interpretation Comments HEPATITIS B CORE TOTAL ANTIBODY Nonreactive Nonreactive (BEAKER) (test code = 497) HEPATITIS B SURFACE ANTIBODY < mIU/mL <8.0 (BEAKER) (test code = 647) HEPATITIS B SURFACE ANTIGEN (2) Nonreactive Nonreactive (BEAKER) (test code = 2585) [employer] ID - ADMINHEPATITIS C [id number] 13:43:18 Test Item Value Reference Range Interpretation Comments HEPATITIS C ANTIBODY (BEAKER) Nonreactive Nonreactive (test code = 367) [employer] ID - ADMINCOMPREHENSIVE METABOLIC [id number] 09:41:41 Test Item Value Reference Range Interpretation [...] eGF R is based on the CKD-EPI 202 equation that d oes not use a race coefficientEsti mated GFR is not as accur ate as Creatinine Keren wright in predicting glom erular filtration rate . Estimated GFR is not appl icable for dialysis patien ts [id number] 09:40:27 Test Item Value Reference Range Interpretation Comments MAGNESIUM (BEAKER) (test code = 1.5 mg/dL 1.6-2.6 L 627) CBC W/PLT COUNT & AUTO [id number] 09:20:43 Test Item Value Reference Range Interpretation [...] method.Test performed by IFA method.HEPATITIS B SURFACE [id number] 16:24:31 Test Item Value Reference Range Interpretation Comments HEPATITIS B SURFACE ANTIBODY < mIU/mL <8.0 (BEAKER) (test code = 647) [employer] ID - ADMINHEPATITIS B SURFACE [id number] 16:22:45 Test Item Value Reference Range Interpretation Comments HEPATITIS B SURFACE ANTIGEN (2) Nonreactive Nonreactive (BEAKER) (test code = 2585) Specimen is considered negative for HBsAg.HEPATITIS A ANTIBODY, [id number] 14:49:28 Test Item Value Reference Range Interpretation Comments HEPATITIS A IGG ANTIBODY (BEAKER) Nonreactive Nonreactive (test code = 2797) [employer] ID - ADMINALPHA FETOPROTEIN (AFP), TUMOR [id number] 14:49:23 Test Item Value Reference Range Interpretation Comments ALPHA-FETOPROTEIN (BEAKER) (test 2.4 ng/mL <10.0 code = 1094) [employer] ID - ADMINHEPATITIS B CORE ANTIBODY, [id number] 14:49:23 Test Item Value Reference Range Interpretation Comments HEPATITIS B CORE TOTAL ANTIBODY Nonreactive Nonreactive (BEAKER) (test code = 497) [employer] ID - ADMINHEPATITIS C [id number] 14:48:19 Test Item Value Reference Range Interpretation Comments HEPATITIS C ANTIBODY (BEAKER) Nonreactive Nonreactive (test code = 367) [employer] ID - ADMINIRON, TIBC, % SAT. (WITHOUT FERRITIN)2023-01-21 14:20:11 Test Item Value Reference Range Interpretation Comments IRON (BEAKER) (test code = 547) 54.0 ug/dL 40.0-160.0 TOTAL IRON BINDING CAPACITY 226 ug/dL 250-450 L (BEAKER) (test code = 769) IRON % SATURATION (2) (BEAKER) 24 % 20-55 (test code = 2590) [employer] ID - [id number] 13:37:05 Test Item Value Reference Range Interpretation Comments FERRITIN (BEAKER) (test code = 105.35 ng/mL 5.00-275.00 361) [employer] ID - [id number] 13:25:09 Test Item Value Reference Range Interpretation Comments ALPHA-1 ANTITRYPSIN (BEAKER) 210.30 mg/dL 90.00-200.00 H (test code = 502) [employer] ID - ADMINCOMPREHENSIVE METABOLIC [id number] 11:10:45 Test Item Value Reference Range Interpretation [...] not appl icable for dialysis patien ts [employer] ID - ADMINBILIRUBIN, [id number] 11:10:45 Test Item Value Reference Range Interpretation Comments BILIRUBIN DIRECT (BEAKER) (test 0.5 mg/dL 0.1-0.5 code = 706) [employer] ID - ADMINPROTHROMBIN [id number] 10:55:40 Test Item Value Reference Range Interpretation Comments PROTIME (BEAKER) 14.0 seconds 11.9-14.2 (test code = 759) INR (BEAKER) (test 1.15 See_Comment [Automat ed message] code = 370) The system [employer] generated this result transmitted ref erence range: <=5.90. The reference range was not used to int erpret this result as normal/abnormal . RECOMMENDED COUMADIN/WARFARIN INR THERAPY RANGESSTANDARD DOSE: 2.0 - 3.0 Includes: PROPHYLAXIS for venous thrombosis, systemic embolization; TREATMENT for venous thrombosis and/or pulmonary embolus.HIGH RISK: Target INR is 2.5-3.5 for patients with mechanical heart valves.CBC W/PLT COUNT & AUTO [id number] 10:48:21 Test Item Value Reference Range Interpretation [...] (BEAKER) (test code = 2801) COMPREHENSIVE METABOLIC [id number] 17:16:22 Test Item Value Reference Range Interpretation [...] (test code = 347) EGFR (BEAKER) 54 Interpretatio n of eGFR (test code = 1092) mL/min/1.[address] age Description sq m Result G1 Maribel l or high >=90 G2 Mildly decreased 60-89 G3a Mildl y to moderately 45-5 9 G3b Moderately to s everely 30-44 G4 Severl y decreased 15-29 G5 Kidne y failure <15Reported eGF R is based on the CKD-EPI 2021 equation that d oes not use a race coefficientEsti mated GFR is not as accur ate as Creatinine Keren wright in predicting glom erular filtration rate . Estimated GFR is not appl icable for dialysis patien ts CBC W/PLT COUNT & AUTO [id number] 16:57:29 Test Item Value Reference Range Interpretation [...] PERCENT (BEAKER) (test code = 2801) Tissue [id number] 09:45:56 Test Item Value Reference Range Interpretation Comments Case Report (test code Surgical Pathology = 104) Report Case: [id number] Authorizing Provider: Konstantin Morataya, Collected: 12/02/2022 02:22 PM Ordering Location: [address] Received: 12/03/2022 12:07 PM Service Pathologist: Ivonne Guerrero MD Specimen: Pancreas, Head, Head of Pancreas Mass BX via FNB DIAGNOSIS (test code = [id number] 3220) FuZzEwMzNcZnRuYmpcdWMx IHtccnRmMVxlcGljMTAyMD suUP9pfZkigQk5zNrpSADm awY8nOFzXIksz4laGIP9u2 jbapckMIIxIWgoFm3yaLAk rAvaEwAiWGQwLQv6jK12WE AooY7ejTBdQYchqoDfLKhv asXysoKiLmg7SOE0gNtwUD PrwrfkOxM4HUneZOGjwzyb YMd7QGbbEQPnxVD9SDCuqQ FoO2BcZUCyZR9bqln5FYS2 YExhECFzOfS9EHLnlZAjEN PsfWboUNxej126QSU1PkEr OVDinqBckPctlA2cZkIqOO OTVkTWIT6AFqYGWHcUVJeW KJShYRMIOlsvCOAsD4ZSXQ CZOF5NZWCPQYPBF8BZSQKR U4RIZYamhPRnWMQqukUgQB ZlKOZBhXIurUSkp4YmPNBq wrBiNUEob7QzivExya8aFD bbp1JgSXMbrW4jxxJjgILv LBFjUDpmSIU8v2yaoDPfAY NzdGUxODAwMFxhbnNpXGRl GmbqqbrhVFVyCIB3sdCrUY RvTYjfITSeWNwiIo0bxYQm uUbqQnCwUQNxy2efxpEQrj vviDu1t5nqBQVgCsJ5rZVr ZLnjQ0crnfHzfDMyHDDoIX n5vN16XOHgzO2whDSzCLcv veKeKsK3KHlkPNFtQdV3AY MzkSJzCQTuA0ysVCIuHZxa WMBoPNlvhXRqINI2gKfxd5 A9kUZfvDHleQrdOpFpUcLb HeZRe1UoRVb9dUejS1PtKE GuYeD4kRAlTRYuOKppCDAo OUEbvnF6oP07ACrnatV0gM Xqt4Tmm41ts755dN9qaGCc UTK4WRMwBWJdaRZmTZBhNY X1ODNchSBvA0keIWNkUW1o wqljUZoyNSnuFLYtjKV5JX GtjJTbH8YcUJFoKXwfVLJv oug3TgRvNp0saYSfpQtsAO utb8zbh7ppsFEhFki6HWNc RuMnKlrjCWcdk6Zln3egFY Rdke4yIWR1aNTjeNnvv0O7 oTMhNWAilMDoBCYfFX6seK LiSOKcqU8ljktqYMLbVpKc drjvQEOfvGqnmfOzVt4tbL hoWTB7EVxlB6afaO5dMqK9 TWjiB0igeQ4nAFo2YVduPU JikZW8kxV4VEXshQJdY7Lr xI7pSPTmGG9epix6q8btWD T9EEbiJXMjWuD8thE5XTBw oCSwPMQkmSpnLCohv772HY I3CeIcGDFbd9OzQ5XriGou O26uaPjfT57eZDAtmNydbF 3rlSwasP8bEdXkSrWxPWfs yQkeCL2tPZAoF3prvKVoZQ XbPHHcX4fuSsWnwI7meYnf SSlcidNuFZImHnj7DEDujD EbZEWjIxa4BCIhTPTpW20j fhnsGSS3bS4rv0yhd1HxIU saRLT3LYBep96kXSnxlpC1 BGyhQi27OAvsXFA7CLqmMJ J9fQ== COMMENT (test code = f6kmgQXnSMDklGYzGTYmG9 5494) v1kHQhl6E3mmxnMX6tsWep gJz7cQnkZJLryuD2fBRqZK fex8mpAEG1w9rforvkTCHc VGttPr1lgRMytUjqYbThTP FvZJw3yQ86MAZiiF0znOVz IDtccmVkMFxncmVlbjBcYm u1IYU6yOqnWGWmsvbbKoH0 FOqyALLdjkimXPy3IPfwCC FhyMV1IUGelQJaI6FyIRRa VJ5fpoq2FMI5IGjeEOUwMu X7LTCifDBdTOCzjDwvCEwd n026KCW5PpZwLKZncbVndU hmbR0cLyPrQQimMkFuPMdv JTTdcmOpIMN6sELwIzkaoX Y6SVFsm6hnAZTvLMFycIux AB76pEwxIvLkS02mguTeAS 6sESYniaprkeHsML9vawUs pDbsBGLkkdCnQ6d3lYGyc9 x1zFXwEX9lMVZutCOhuPGa ZVMrVkCze6etJIWfUZWtwD LzxfiaKJuoHvmxoA6puC3o eSBpbmZpbHRyYXRlLlx+Vm YebTIdOMdaRLC4yHeeUCzd I6ivkgGnXDHeQYYfVRTlIV VtYmVkZGVkIGluIHRoZSBm xJQzt9UxGPD0fr0yRNMxug Udo4JtTSLgb80fnSNwyF7i yYKuHBZ3wNkaOEwxF8ObtG MuXHBhciBUaGUgZmluZGlu H0KmFYYxAZKrlwFzmq9epi epGs1yRCFcDRxtNwwwjRKm yHfmNwLorMJ6EGpnKZBlkt 7fVEXhrE6ncTWeMYtbu9S2 QMXsYWHoULLhrul4uCSrTO OkBKruy4FgdtVxFT3lw3Zl VtQerNIeGNVssrT8mOmmLQ YcuZXmGY4ocPBlXESbsvYZ Ighfk0HaLWR4hGLoeZXkQM knyN95VCUkdzR8hEJuoPDj c1ZyCJsgj6Cpc10ugPTkD9 Uai8tyWlujdLysttFbx2Xm II4jgcEivvKihKE1kW9yuB 5ekINmNF1bjNMbHQTyGHui FBCyj3AuuDPozwZjsdFyKF F8XSRzJYIhygWriuYvjApb kkxpo0M3OGxjlp3lzRWhuG == CPT Code(s) (test code e8duvUQuGGCmaBDdGLTuU3 = 3357) meuaWwRVYjlRJiS4Vvjzdk LRxeYD9cIV3qfVmiiWRovK WdAWNxUgDgf5iin520jSWd a6lnBJEZDUwjSCVAYBr6z2 dtZOQViipndMe0bDmmN17d x6E1OgptX90kyTPpUMJ0OG CpACGsvZXnGWCcDCI6WCWq oQRdP0saVOAuHM4ozrueJK fzEFehOONonAQ5NDZqkVCj M9GjQJIeWQufEWLsueh3Oj TqSy6mgOIeuYcoLCgrWGJc XHBsYWluXGYxXGZzMjAgOD gzMDcsODgzNDJccGFyfQ== CLINICAL HISTORY (test i6licCJpFAJcqOFmNDGyZ7 code = 3356) nfdpVvJUQdmNDjF8Larnkd ZNxfBN9cOD8dfHgxoLWzvL QqTKPpYjFqn0ezg880iIZv t5tnUVFXcyjjfSe4vDzeH6 4ge6U6WettX47yaUOhKBB5 OKTjQNDkhLBsAJOgSBN5NC IxsDCuV8qcVSMvEB1fhbpo HJbhEOlaKLLufNW6PECliJ ObV4SjTBJpUUozAIUccxw5 UjDwHf8nmCXgfZltMYiwSH JkXHBsYWluXGZzMjAgUGFu H9KhDTBdNhTyHMBvKMDico 0= GROSS DESCRIPTION (test k7nrqMLhHARhmBPISRUcDZ code = [id number]) ScON7kqHuimCw7pWpbPECg ysK2bUUzPCsjs8lcDMN3s9 kdomDQWmrbZARpVS2gRRcn HOHcDY1hJxRoLZVwFxSzMJ BhcGVydzEyMjQwXHBhcGVy fEQ5FYUgWO0xacqcSOgrZX foZYFikgE0YCNagWFqO6Nv WXCeLS9vxotkSXG8YYTWKk qdVz6jbLFgbIrlSdMlLrBv YXJzZXQwXGZuaWwgQXJpYW f4wC4GNfbaB54nj9N3Gdv5 TWFhTVLxK7YrLR3cMURmgG CtQ86QVrsfZLI0EVRTYtgd LhovvEjti7FojWWkDZZtZZ xcaWQgNTEwMDAgXFxkYiBP AfGlMaXyEORqFpT7PFKvAG g5VMhiRsHGYSH3TKIkTuXy GHy9OIqlZMvltZYiWKKdFB HgSLFjXOdsfmX0v5qjMEWu hAOrCQO1UXebt4xbTMxlUI E9ZMKlZrSfKDCdDR1IHyRn SEJaJCHlDqb6ZtF2QCj6KA EMCpGjXwQbXwXaCNB1VmSd JNp4OKc4EEaUSwC0ApD4Kn JpQoSfJRM9KpPvCVc6HQNz XFxzcyAzIFxcZmwgXFxuY3 1ccGFyZCANClxwbGFpblxm czIyIEEuIFBhbmNyZWFzLC BIZWFkXHBhciANClxwYXJk LG0ESNFqAFcdSUSmEoQkyC LeT9ubZTLmN65pt2BKy9Md OX2TITj8cdIyjspmaB1jCS TtvlJgWJnrH8MdLOIwFrOl PgZvCEo4XQGgxI3cRe6scH ZzuE1kvJNnKCqxSHB9uEYq NVIoUGPdYATgFJ12OWoINT MgbmFtZSwgbWVkaWNhbCBy ZWNvcmQgbnVtYmVyIGFuZC LjwHcwSjJoBFv7R5JawiNu ZWFzIGhlYWQiIGlzIGEgMS 08OSkjXX4nZIhtFJ3rPYKk XIUzK8CqI2E5JQAvReO1HG 2stbZlETRrKhBapAprz3Dy HZOmhvMtQXJ0gMevlLCily Wvc4HkwBa4zISrAGfqGNVw pW1eoK9pSIZxrIuiGFItZI i0XlRdJaxkBUIeEUgbrLJw WY7UKGZbJaDmLCHvY4kgTB MrSD3FRUAnVGrsstYyALuz wMI0oaURXU7ohi4LOHHmhU KPTQB7RN8sYKebSVKqP0Av J3WlyjX3b2btyYrkm1XieI EcFV5qtBRrHV6EGTVfzgWa DQp9 SPECIAL STUDIES (test w8eiwAMqFPRsw3mkOCJhnU code = 3376) FuZzEwMzNcZnRuYmpcdWMx WVjojqGfMKgpz5PeZ3LfZn AwMFxhbnNpXGRlZmxhbmcx SXHoYFZ1dsHpOJMcRBgkWQ JmBHbzGk7jwFAaaDvhMgZk BRWpg6vbnmWVdblnoDh1m4 poYIUgTiB4kNYjKPfcM9nk ovDogONxN1FugFGqlPi1w9 oqBhHyGsV0vSGeUJajS4mb dhNfjHWvCEBmSDu8dZ48QZ SibI2ouDKcWEyvwmOeQoY1 HRlwFKSzFlL0PYZqvWZsIB LiO9jmBAKuRBiaRWGfUEmp dWXyFIZ4iMbnd1O8kMVqlV KtxMnbYpOgRzVkReZZt6Mx JRy6wYgdW1JvJLCePsQ8gZ QgUGFyYWdyYXBoIEZvbnQ7 qPjvixOew44ogZBvJXHwHH RpSpPdhQjlKJExNXJHm7Bz aEflPEJ2uXh3uFdxGvnlFS A9Lws4HY0qha50glt0jMau XQPzrlfxJvK2DIjzBNGrck lcBMw1FSjxOFYunIM4LIJr hBXqN7RuCWFpFZ2scyp0NE I1BCebCSNqIhB6JUKkcYGp QNUrkRdsCBmez333BEH7Kv HsUT7tU8Amp5P2zC9vvTNn KYKdbPEmCoNlJTMslf9tsS NjITrkv8WfSZP1ygW3fBCk cNAgVVIlNW65Vlhkt2TjDq nye6ZaK26wfLL1DXqei1oq CC5wKpS4caYbYQtgn6quaB 8bRrH0KWmrBQ1uYV3sCJIe nY8dvlguXGYoQjYwhvcgAP SqiOqivmNkEz4oeLubZKH7 GRnvD4poaB1zWnF8AMvzE9 rhlO2tFKw3FHtetOS4MQTx uT3pFU2ncuzid4vlFUlcNO zxQEXlalY8myJ7ROUqrKBa I9YgvZ5eUHWaRH6nmitzo0 hbGEI8GMogPPYfRCL9IiBo TLDfq0Mlgpy6TgGcl8AmwK GvREwtU61lg373OZSffgNf K1reoWUiseehlIMpxnfiAL fzvcX4OTGiEYWdMNfaNYBz XGZzMjJcbGFuZzEwMzNcaG ljaFxmMVxkYmNoXGYxXGxv N2lcDtPzB1GlMOIlSwKrUM gjIXsmhVAoqEXepWF3jW4c IK3kJEIboBWoU6HqGVEqlw OqrTOtRVP6xYCtdLFdLD7p FRwmuRDag8yxh1PgR7ehaP zhtWE3FO8bXEUiTORzNIjk s7QzbE9iGlppvSMtadqkBX xmczIyXGxhbmcxMDMzXGhp U6ejVaBlOKHqeUsbZVaqo9 NoXGYxXGNmMlxmczIyXGx0 cmNoXHBhclxwYXJccGxhaW 9nDfPyEoJtIazqHW6aQMZs F0ysuYEdTBHrQSCdG6seOc DqfX4bfShiVXckMmHgSbIc KdOYa856rw4mAWFiaNModg YCwLIgmW0oIWcuGLwrYOtj gCGqTMxzx4jdALWoh4u2pP OiNESqjpNaa8fnDCwwanYo MPKixBRybIXkHHUpl72dNS uncOsjiTkbWZTan2UxtOjv v7YlGqSgJEalq0NqV54wzW JvbCBzbGlkZXMgcnVuIGFs b91pn0nyURIpLfY4zIPylE C4hOXvbUMos8VtgObjSTNa z5wgNRSevi0mvervnRZog2 XjoJ5lvrtkNKgabBCegaGp CZXaz4y1zOKtSYTjLPKjUU myhYk0YTXnn876gf3pzrS9 mXIvVPP9BCorMUObHHZtgn UgZXZhbHVhdGVkXHBsYWlu XGYxXGZzMjJcbGFuZzEwMz NcaGljaFxmMVxkYmNoXGYx LZqjC6nyEwIoO8ZcGXQkFa RahDCwD2kuuSTiUBFbRXvj XGYxXGZzMjJcbGFuZzEwMz NcaGljaFxmMVxkYmNoXGYx HJvnY4unRrDiE5UeOMJlEs IgIFxwbGFpblxmMVxmczIy HImznzxgBSFmELdwO6gyQo HqAEZgyDusMDvss0RyDXJm XKVlQhpzdgNlFVl6raNqKY BhclxwbGFpblxmMVxmczIy JIlgpubdWAFxPUcdJ8jlZp DfJSVouBirMSols4DjOFPa XGNmMlxmczIyIEltbXVub2 dms1JlN3diyInmwNP0IZQj Y8uozSRliCM1QJC0eZ0bQE culzVnDULid5YvWQXrYEPg BdN2tX1lKYF9FoDBhMygWI BsYWluXGYxXGZzMjJcbGFu ZzEwMzNcaGljaFxmMVxkYm IiKTMjNBarY4uyUjDiI6Ow OIVpQjTjrZabEClaCJc9Ro xwbGFpblxmMVxmczIyXGxh vyfsGYRtCExsD6tkDsWiEU IlgErmHUead5HdEINyIKTm MlxmczIyIHMgTWVkaWNhbC REIC86RXUdENOtsOcngO9e gMMRDLJwomA1j5U9JNxrUO RiNKd2GKkkvnBrCYQhrB6q NGRpFS0qWZu9ndYmOQTkq4 FxZS3pMLOcnFCwNWE4IIZh m4NxY6Jfz9KwIQGoKZJvmf 2npyDrGnLDwVSlOTAjtn63 AHKrZW3nL8rfGTCoOECcpv TehOOfr6OxDOVutUB7zOFh FU5TQvPYe32nVVQkDJNQzf VhNWOruBqtfPC6ncQ3bA5c LiBUaGUgRkRBIGhhcyBkZX Wbup8xxmHvKELsYZYpa3Ip wWTbcZVvvrYnY4Yfk0VzET Uesj07WZzqaCDsys78GQ4b E9Zfn9NbxC3aXUfxPJNed9 YzxJJioSTsNRIwr4LbI7av bahyWDqqcXOsuO2zYCHsYQ v9OYWqi4AsNBTlo9ZcLwZm haLgXBDsWPOvBMGapV67DZ S9pLqklChveeFlBK4gMJTq tjZiFLShURYohV3vWMoirc EoPJLqnxI5a8N2PXqxTMKk vkGqLfiiDER2vyLiwrZ0lD AcS3mjcykmDIraTHQck5Kx cT0utIEVnQJpw4HtoGCklY DAeMExMF3ohyXlWE6nJZH2 ODggKENMSUEtODgpIGFzIH C9TJpbArlpUWF8hyHfPYTp n1IbNSbgG8gvF95xlWfgeJ g9cOTwzKnkkEEbkXGdWAQn iiF6q4T2CHHet6PylzdaPQ BsYWluXGYyXGZzMjJcbGFu ZzEwMzNcaGljaFxmMlxkYm ErSDOrXLygR3mgJqLyIqAh ZdnbPMX1hN== [facility] [id number] 09:45:56 Test Item Value Reference Range Interpretation Comments Case Report (test code Surgical Pathology = 104) Report Case: [id number] Authorizing Provider: Konstantin Morataya, Collected: 12/02/2022 02:22 PM Ordering Location: [address] Received: 12/03/2022 12:07 PM Service Pathologist: Ivonne Guerrero MD Specimen: Pancreas, Head, Head of Pancreas Mass BX via FNB DIAGNOSIS (test code = [id number] 3220) FuZzEwMzNcZnRuYmpcdWMx IHtccnRmMVxlcGljMTAyMD inDU5geRzpeNr0nJcoDEAa wxG2lNJuQBbdw0ddWDR8p1 nskwiuYLYkMLezSf4pjFBv nXzyZvYwXVKiPYf9tD55WW JdiR1gpGLeOAcvdrJiCBmk yaPqirKzGsi5XGV6hJpbTF ZxhjhvSgY2SNehGHUvqnsd FDe9TVgnCLLdxAH1UCNacR YtJ2WwKLQtWY5gsoo6HXN7 PLdpACQsGcM5FXEetFFbSZ ScfEepJBmdp306YVC4NgXq DHGmhbLllBpzwK1qZbXmDS UYMnBYAG3TXqQCESnEDMyS EWRtHZVDJaueETHaQ1RZFC NJSC9NBAWDWBECY2CJNVKX Q4NRLHegvWPoUEMqdsLyYB TjDTNBlMSojMMqv6WrPHAg idQgKCGng4JckaEgpv6jKK cmn8ZgENImyV0gcuHciNAo ETEjDFbiKZW5s6qzlCVvWP NzdGUxODAwMFxhbnNpXGRl XntyymbcVJCuMAI3coNyTA CqOLryCGFdLKwpSc6yiZSb nBqyYnGmWILsm6stjhGYfp gygWe4v7krAGLgQzL5gOLl ZIxzB9gcnfEfhUKeTUOtFP a1bI78GREiuS7yzGXmFTsu tiRyQpK0RQclBLNaWwO2HB PkpFCtSALuI9zoVQVoLLzr FUVxXBidjUTqHYW0qUcqh0 N4yOUiiGEhoQrdIpGwCuWn OfYXk5UmMSn6oNduZ5GvDD KwTuS8dEQhRNRtRCsaUCEa JWXlwdL0lX96PIovxyY3kK Cyt7Ezw29ax653oV6ntTVi UOS5NTGfTOLlwGPgXVNnKL V3PDJawCTiO1xeSQExVI9v doxeEOrpHJxtVYNciFA4FN IfyAFhX2ZeYCWgWEkgJDZy eaf1PzXcJn8flKOqyMrvOE tfn0ygo8hepMBpTcy5YFMn YjZeCnrzUTteq0Bkp4izGO Hhdx2zSMV5cBQmqQuso7U8 aDUcPDWwaYCcGTTqKD7fkU XuUJKgsY9iujqpYZCdEyMp teerLCCeqBeddqXvNh0qgC fiAHZ7OXkzI6flwE8yUzD0 RRdqW8aqmT8kWPm0XXsiRR VdeXC5kqD3RWQwgCIxV1Qe bB9fOOFhFY1ygtx2f6iiUN G7HUmwKIJgPrO7qqG9PZKs uFQuLNIyhMmbCZckf936GD L4RvMiYAXsd4IhJ9LmvEdx W81vwFvcX44oKNCpbHzdtD 9ndPyheL6jYtKhFrYcJUbs oLeqVL7yHRDuW2bhrYUdNM SuZXUaF6biLhLhhB4uuBhj HMdqffVgRUOqXiq9PHBmyK AbVJSdGtv2WOEnLLZoP36h zjicFFC1tZ7um6zno7GfPO elKDJ0EAWbu81nFNexrfZ8 IGyzYc93YRduVKT9KHtyIQ J9fQ== COMMENT (test code = t4kacWSzRWNmrHIiKJQuH4 4530) e7lQKbf6D8mninAV4cuJbf vHd8kQtpYSJkxuT5cMFkMA mom5rvMGA2e8iscgltNLJb NGhfEu8ziFXnhYmqRoNgPI NhTWc8cW55CRLmxM7lzQVb IDtccmVkMFxncmVlbjBcYm j3QNL1eCoqIENkgzxiHdP2 OZeeQVDrznvnDOh1MJaeRQ KspCD4HXAgjDQgD6DwSUDk QM1qgbm6NCH9LRplYSTtSh Q7LUTmmWEeTLCsoQodRHzv l381FDW7JkSeFBAvufOeeO kzvM9uXwFiFFtyNeFcUZnh LBVyhtAbKXM2uLZoItbdlS T3QUDix7nnFMGbSRWkuRvx YE15zErwKkYpI89zelJkCS 7fJPCpxyylobJnIZ4vncZu aEbhIYUwcwEaI9p0rWLqk8 m1wALtFD9sYRAopQDmeYXq DSDlVhDko4ryYERyMVKmaM ZtbtjdFMnnIiwqgP2bmB1q eSBpbmZpbHRyYXRlLlx+Vm HyrZSeNAcyCXZ1rJqzHFsp Y0vlyuXgTSBgQIYrRNQhIG VtYmVkZGVkIGluIHRoZSBm uKMmq9SjUDW9rf3rDKNcdb Aoz8RnXYIzv99tcWYtmO1r gGEtNYO9vIwzWWmkT9JhwR MuXHBhciBUaGUgZmluZGlu R3OfEVMtDIFrpbKjor3jjf fgKb6kGZHeDKwfIopltGYz eMpyTlHcnMR5LFatRAHbix 9tNHXezC0tuDJwIUhad2W4 YHXcQCQzVMErvch5oGNbLY IzQXzal3NaiyYmDG2tr6Td BwVcjOLmKBRdkyL3yIjsJF ZybVPuTX8oxXIxKKUmhyYF Ysymv9BhSQQ1iXEalSUuCC fgpX57XDImvxN0tOUfvGAa n0OaCGcgq6Twq69uwKFwN3 Xwk1cbNhufzWidvuZeh5Nc NM7iufSteeAnmYV5tE8wkT 6lyMLdPF5egYYjTOLtCIsu JAXxi5OblTUubePnfpAoJA J4LUGgVBDqdzCfsuBatZoe gxsov0D9IFapna1djWVsmB == CPT Code(s) (test code c7fptMWrEJTqtZPiUMStN2 = 3357) jgnfFbFAUarOVlJ5Hhwmzd JRxfWZ7qWE4dqGhckTEorO SwTXIrRoQgv7rgp060pVKd w6hzUQTKOLtkYZGKFZq8w8 niJSMJixvkuPy2nSlfR39r s9M4ElhcR78icHIwZVU4GU LgCOLnvLGwVLGoCKY9EJCj pZPqA4llMZAdNV6qiivtZG htQDwsLCJzpDT4LANjmQPu L5UqKCDfMWvbBCOszaq9Wl AcQm9syUFkfYziIMysZWBu XHBsYWluXGYxXGZzMjAgOD gzMDcsODgzNDJccGFyfQ== CLINICAL HISTORY (test i6bgzIPmLJFnyOXkXDHzB3 code = 3356) syvmCfZKCnqFJjV8Quvhvo AXngWM2wOQ3lmLasrXSeyY DsTCQeTvDqg6agm879wRUv x8eqJZEGxviebUv5iSirB1 2ku1E6CcttQ92cdPScUTA2 BSVpXQNjbYQdGNXiWVW8XD KflROnN6qoNGDpJO6fciwu AHehIGlgDWQmkMO7LCJysH IiY6ZtTTCqSEtpMALdhiy2 BnNxHh6egPJkyNdfOFpbVB JkXHBsYWluXGZzMjAgUGFu X7NvMDKaAiReNYWdMRBcrg 0= GROSS DESCRIPTION (test u0wvgAPxVRNjpTXWPZJsLH code = [id number]) ChIZ0buVdjtSf1yAifLCDu qmM6iLNkCDkwv4btPEF8u5 jsptMFOnmtXXPhVM4mMDbl XZItAJ0gPoJyIDWrWhJbCY BhcGVydzEyMjQwXHBhcGVy nBQ5MJQhWX4honmvLVxzTB obOLEtqdQ4CVImoPFvN7Au TIIcYX0jwzqqXAD1QTXQQe ejXo5guAAciYntGgIyFvYl YXJzZXQwXGZuaWwgQXJpYW c3gC2MNofmI65ym0H9Tjo4 YFMmFZPqJ4NtPX6wJUNohF DqH90GVuueUFP3VRMRVdri ZniutIggh2XvlPHwDPYuKK xcaWQgNTEwMDAgXFxkYiBP PoTbCvNpXIPkFoW0XLDvSJ y9GYlrHdPIDMR2DLYxDrYw RDh0VGrnSVctgVQpXYRvSN BsRGKvYRintyV8i2eiFXIk oZSiYXY9WDhba5pjZNqhGL O7IKLcNnCeZQUwOB6BLdZp MLCdMZJgMif3XjM1KXg0SX VVXzUpRlUtOlGrQVS0LgMl LRn5VIa4IEzETjT6CaR5Vs DyAbRbALS3EwNfPWc3ELXq XFxzcyAzIFxcZmwgXFxuY3 1ccGFyZCANClxwbGFpblxm czIyIEEuIFBhbmNyZWFzLC BIZWFkXHBhciANClxwYXJk LP5IUERtFOnyDNHnIoYksE WpY0asHUFjR36df3BIp8Eb PY9JYLv5yqSobtyzeG1dKI LdjlXmHFmaW6WiORKpUtEd AhJuQBd7ERLmmU4yVy7vyN JqcS9upSLaHXsyPKM1eKHz VJSpGIOpMIXpSN23SIoWPP MgbmFtZSwgbWVkaWNhbCBy ZWNvcmQgbnVtYmVyIGFuZC UigOwgAkAeFYe6N4GvbdRy ZWFzIGhlYWQiIGlzIGEgMS 34ZUwsBP1dOCyyHJ2kIESr OQQwR3BdW3Q8KNSvBtF1HV 5gazMiYCWzLhUtmFcpp3Sp FBCknzBbRRT6dUyjkVQsqw Hfw0IyxZp1mNVvUBdwHUEd iL9msA1eBGYvfOthPTXqZJ a7UqGqCgzkWHJcYHpnsFRy VW0UFWJeInPiFJJzB2hhHI IaHZ8UTXEyWSrygqXcBVzz uOW6qyGBZC4vyo1VFJLmyU DUADI5LW8iPIueNNFjW1Xh V4WmunC6w4thjGcfh7WzfA LiWU0zgFRwVO7AJOUltaWa DQp9 SPECIAL STUDIES (test r9qelULfXAZtn7xwVGTqhV code = 3376) FuZzEwMzNcZnRuYmpcdWMx YFvcsrPoCCmpj4SdW0QfMo AwMFxhbnNpXGRlZmxhbmcx LSJsHKG4qhTdUBZyNQeyNY JmQVsfHh9dhUWatXaeAaKq QUYuv8qohkHJrjqyuMu2j7 pbFISaRbJ5yGIhITeuU0hk vzVxfIZrW1BicZLkqKc4s4 ejNxEwExM5tXFmGIsuL5gi rpLbtDLkMERuMVa2fX21NG MunN8srGTeKUrrclYnBlN3 WUrvOOBhBhB9AUFphXMaKU IqU3tzBOZyTHexCNDqJMpa uVLjWFQ8pEbvi7N4gDNmgU CcoAgcJuUyAcJtQtGYo5Ae VAz6xBzgY8WoEFBcTyX3dI QgUGFyYWdyYXBoIEZvbnQ7 iZwwdiNwg60xmYNbIDWuYX IzKdOzdWacMESrFIREt4Az eLklFBK6cMj8uTdxZgjbPU M8Jpi3IQ2nsk80dwo6gZkc IWBrtruqUtX1NSudVOSnbk icVHa7GNadFTXydWN4UVJf hCXeT7BjZKQwXY4zmec5NL X0EKbcYSDlSbY8HAGdgBGh MBUsrTacUVohg050WRL6Hs AvGV9zU3Aum7N9wE7tbNOq GEZtmDSpDtLpAMAyxs4qrQ HxSUoas0QyFIC5oxC5xBDw lDOhSEPuIX83Zcqso7XyIi qri0GlQ14mdRP8MOqef9va JS8jFzT0inDlSSqrn6tgzV 1nEfP6DPojIL7oIN1eFEGt xP5qslrbGTEjIkAfdasdWG NeyGpsawLvTb0qrBtoKHG8 FAjwK9hliP1kIwS3ILktY1 dziA0mMEr4OXqifQV9MDAt aS1qEF8znchtw9aaSPnpIL wtRUOfhiP0hmW8VQMniMKj Y6UbgJ1aXXSgGH8uzptwb4 viDDK5QWccNZBfBFP4LyYs ZRDgp5Zzvkp3YaLts8SllW XuWUxhY83ue922LKFgpjIr N3wezYGrgmdgnJUiqhqkEN fomrC8NCCxWHIfCNxsXZZh XGZzMjJcbGFuZzEwMzNcaG ljaFxmMVxkYmNoXGYxXGxv D0bhHgGfX6PoLIGvZiYrOR kaRFfgfAFvoWSdlFK4kQ4b EC5vLLRmjVJeF5XrNXEpzx XjkUQcMRH7tSFpmJFsNR1h SZussXWqm3iil0ZyY6varI avrFX4YH5gFUVyOANaPZgn l0VyeP2dIjaifQTmzdsnKD xmczIyXGxhbmcxMDMzXGhp Y8ztEqPcOFQdzTbmFRwso7 NoXGYxXGNmMlxmczIyXGx0 cmNoXHBhclxwYXJccGxhaW 1jTsPrWxPkPcltYY6mIPDs B4mzyVMjIWFuTWEcX2ceKc QpiX8haBjhQQpvNaZqWxNy XgSZy951ic4zQEWxqYFmme NXxBLakN0pSAhdLOalUUzq kCCsSGguj4hbGUVyd5o8uT PjAPWwouBrm9cvQTcyiiEo MOXidOLzjBKnNZZbl74jVN bbzAjhzFryOMMvw9AysNqr t3NjCsFoNHrur1WcI42ntN JvbCBzbGlkZXMgcnVuIGFs y09jh8rlZBPzNeS9oMDavN M3jDWtnQNqw8FyuZjsIREo r3icQTPqyf5vogihyKCua1 FdhA4bjpojIKxlvOOhouZe XGCkc0b9jCSpACXfBHEzXR zrhKp4VMEeb052zs9bdyY3 jOEcGRF2ZSgpVVRtMXDrnv UgZXZhbHVhdGVkXHBsYWlu XGYxXGZzMjJcbGFuZzEwMz NcaGljaFxmMVxkYmNoXGYx TDtmF4wvFbQiR2EjWGKiLl VwzETdU5mknJCtMMGqHAtj XGYxXGZzMjJcbGFuZzEwMz NcaGljaFxmMVxkYmNoXGYx RNleE7kfSoElV3PcJJTzNn IgIFxwbGFpblxmMVxmczIy QFfgmznjLNBaIMawF1vxTf HzFFTopYjdZHkrp4OyCDYp YHYvTvprmsDfLZs4gkYkLA BhclxwbGFpblxmMVxmczIy ACkhxwrbIVImLHyaM6kzDe YeSGDvaRmpVWahg9ShEQZs XGNmMlxmczIyIEltbXVub2 mnc5SeM5zmeVtmjLL7YPQe V0orwBIazTQ3ILA6fH2hBK bowwKqQVBtb6AbFVOzKNSu IjM0lA8gSKP0GsNPjWqxDR BsYWluXGYxXGZzMjJcbGFu ZzEwMzNcaGljaFxmMVxkYm ZiTNDxRDiuA8nhYdZvD5Bc SEKzWtNafKkwDMptHFf9Qw xwbGFpblxmMVxmczIyXGxh tmxySVFhEVamO4byUdIlMV EliIwkLGhfs0YcZOPcKQZv MlxmczIyIHMgTWVkaWNhbC KLGM89KYKyBSJiwVwhgD4l kOLMXSGaorK0t2W1TBmyAZ TrQNu4RUtgirZsSBAbtT0p EAPsBC0nWBa6cuQaJJUkn2 WuIH7yABRjkJNcNVN4ZHIj z3YlT5Bkc9EiKBEdMOQfkt 0encBxDoNRmAUoSHIxuv55 ERNzXS3jB1xtJVOdVKFubz UvgRMry3CsKVNylES6aDFc OH6SLzQLi58lXFFmDYSNvg UjLPJevKgxgES6qhC2aQ5l LiBUaGUgRkRBIGhhcyBkZX Iktu7jraVtXDSoLCSke1Ar pPGlbJBalxSbP2Sgm4BvUI Ywxj50IGfwwNJfuw71TH4y L6Xvi0WvkM8uTSfpUPUyn0 EdsZYbwBBbUIKmy6IrF1ou gxctJKkvxZMvbW3mLEYrRO m9BCQfa8OaNFPpc5JiXeHs geDfYQAsWDAhELCgkG04VM L0oBkdwYqnuvMoIN3lTBTl gbThVBDaYCPnbX8cRTyels EsYUNtjfE5x4S1EOlyZICz ekPtQykdLOA5uwBqccZ4oV SmG1zqogbdYPfnEMDbl9Zr gP7jwFOUiSEad5YetRLtuW RGaALuAR2leqUsXU9dQTM7 ODggKENMSUEtODgpIGFzIH T9XLguAtndKGB1beUaQQLi v4AqTSceG6oqF31htCzcrT j4rYHxnKaamIOoqWMiHEEy acY8p3S2DNLkl2KtfnlxXZ BsYWluXGYyXGZzMjJcbGFu ZzEwMzNcaGljaFxmMlxkYm GpMLQoFKifF8xsHzOkYgJq UdqoKYB5tX== [facility] IV [id number] 15:39:31[facility] : 1935 Sex: MMRI [...] Signed By: Ellie Sanchez12/07/2022 15:42 CDTWorkstation Name: [id number] CHEST WITHOUT IV CONTRAST 2022-12-04 18:08:35 [facility] : 1935 Sex: MCT [...] Signed By: Zonia Mccoy12/04/2022 18:10 CDTWorkstation Name: [id number] CHEST 2 VIEWS 2022-12-04 16:52:37 [facility] : 1935 Sex: MEXAMINATION: XR CHEST 2 VIEWS INDICATION: MRI screeningCOMPARISON: May 28, 2020 FINDINGS:LINES/TUBES: Support lines and tubes unchanged. LUNGS: The lungs are moderately inflated. No focal airspaceconsolidation.PLEURA: No pleural effusion or pneumothorax.MEDIASTINUM: The cardiomediastinal silhouette appears normal in size andshape.BONES/SOFT TISSUES: No acute osseous injury.ABDOMEN: No free air under the diaphragm.IMPRESSION:No acute cardiorespiratory disease.Electronically Signed By: Tyler Hollingsworth12/04/2022 16:54 CDTWorkstation Name: [id number] COMPREHENSIVE METABOLIC [id number] 04:44:45 Test Item Value Reference Range Interpretation [...] not appl icable for dialysis patien ts [employer] ID - MMSpecimen moderately ictericCOMPREHENSIVE METABOLIC PANEL [...] decreased 60-89 G3a Mildl y to moderately 45- 59 G3b Moderately to s everely 30-44 G4 [...] Specimen moderately ictericCBC W/PLT COUNT & AUTO [id number] 13:28:44 Test Item Value Reference Range Interpretation [...] (BEAKER) (test code = 2801) BASIC METABOLIC [id number] 07:06:25 Test Item Value Reference Range Interpretation [...] high >=90 G2 Mildly decreased 60-89 G3a Mild ly to moderately 45-5 9 G3b Moderately to s everely 30-44 G4 Severl y decreased 15-29 G5 Kidney failure <15Reported eGF R is based on the CKD-EPI 202 equation that d oes not use a race coefficientEsti mated GFR is not as accur ate as Creatinine Keren kyle in predicting glom erular filtration rate . Estimated GFR is not appl icable for dialysis patien ts [employer] ZACHERY Calix moderately ictericHEPATIC FUNCTION [id number] 07:06:25 Test Item Value Reference Range Interpretation [...] code = 79 U/L 6-55 H 347) [employer] ZACHERY HERRONevertoñito moderately ictericPROTHROMBIN TIME/[id number] 06:45:01 Test Item Value Reference Range Interpretation [...] (BEAKER) (test code = 413) BASIC METABOLIC [id number] 07:06:00 Test Item Value Reference Range Interpretation [...] S NOT APPLICABLE FOR DIALYSIS PATIEN TS. [employer] ID - PINKY [id number] 07:06:00 Test Item Value Reference Range Interpretation Comments MAGNESIUM (BEAKER) (test code = 1.9 mg/dL 1.6-2.6 627) [employer] ID - PINKY [id number] 07:06:00 Test Item Value Reference Range Interpretation Comments PHOSPHORUS (BEAKER) (test code = 3.0 mg/dL 2.3-4.7 604) [employer] ID - PINKY MHEPATIC FUNCTION [id number] 07:06:00 Test Item Value Reference Range Interpretation [...] (test code = 49 U/L 6-55 347) [employer] ID - PINKY MCBC (HEMOGRAM ONLY)2020-05-31 06:15:00 [...] (BEAKER) (test code = 413) BASIC METABOLIC [id number] 06:50:00 Test Item Value Reference Range Interpretation [...] S NOT APPLICABLE FOR DIALYSIS PATIEN TS. [employer] ID - [id number] 06:50:00 Test Item Value Reference Range Interpretation Comments MAGNESIUM (BEAKER) (test code = 2.0 mg/dL 1.6-2.6 627) [employer] ID - [id number] 06:50:00 Test Item Value Reference Range Interpretation Comments PHOSPHORUS (BEAKER) (test code = 3.1 mg/dL 2.3-4.7 604) [employer] ID - ADMINHEPATIC FUNCTION [id number] 06:50:00 Test Item Value Reference Range Interpretation [...] (test code = 54 U/L 6-55 347) [employer] ID - ADMINCBC (HEMOGRAM ONLY)2020-05-30 05:31:00 Test [...] (BEAKER) (test code = 413) MR, ABDOMEN, [id number] 20:04:00Unlisted Reason for Exam - Click Yes and Enter Reason Below->No [facility]ENTER[facility]: KELSIE JUDGE : 1935 Sex: MFINAL [...] Marrero MDReport Verified Date/Time: 120:04:18 Reading Location: [facility] B1 C013Y CT Body Reading Room [id number] 06:13:00 Test Item Value Reference Range Interpretation Comments MAGNESIUM (BEAKER) 1.9 mg/dL 1.6-2.6 Specimen slightly (test code = 627) hemolyzed [employer] ID - KYLE [id number] 06:13:00 Test Item Value Reference Range Interpretation Comments PHOSPHORUS (BEAKER) 2.9 mg/dL 2.3-4.7 Specimen slightly (test code = 604) hemolyzed [employer] ID - KYLE WBASIC METABOLIC [id number] 06:13:00 Test Item Value Reference Range Interpretation [...] S NOT APPLICABLE FOR DIALYSIS PATIEN TS. 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 Signed: Christiano Hoffmann Verified Date/Time: 05/28/2020 17:32:27 Reading Location: [address] Reading Room RAD, CHEST, 1 VIEW, NON [id number] 14:38:00Reason for exam:->for MRCP clearance, Pt. have a PacemakerShould this be performed at the bedside?->Yes [facility] : 1935 Sex: MFINALREPORT INDICATION: for MRCP clearance, Pt. have a Pacemaker COMPARISON: None TECHNIQUE: Single frontal view of the chest. FINDINGS: Lungs and pleura: Clear lungs. No effusion.Heartand mediastinum: Normal heart size. Unremarkable mediastinal contours.Osseous structures: No acute abnormality.Other: None. IMPRESSION: No acute intrathoracic abnormality. Signed: JR Verduzco Robert MDReport Verified Date/Time: 05/28/2020 14:38:54 Reading Location: [facility] Radiology Reading Room [id number] 06:27:00 Test Item Value Reference Range Interpretation Comments MAGNESIUM (BEAKER) 1.9 mg/dL 1.6-2.6 Specimen moderately (test code = 627) hemolyzed [employer] ID - PIAYA [id number] 06:27:00 Test Item Value Reference Range Interpretation Comments PHOSPHORUS (BEAKER) 2.6 mg/dL 2.3-4.7 Specimen moderately (test code = 604) hemolyzed [employer] ID - PITHAD LBASIC METABOLIC [id number] 06:27:00 Test Item Value Reference Range Interpretation [...] S NOT APPLICABLE FOR DIALYSIS PATIEN TS. [employer] ID - PIAYA LHEPATIC FUNCTION [id number] 06:27:00 Test Item Value Reference Range Interpretation [...] Specimen moderately (test code = 347) hemolyzed [employer] ZACHERY BRUNERBC (HEMOGRAM ONLY)2020-05-28 05:09:00 Test Item Value Reference [...] code = 413) URINALYSIS W/ REFLEX URINE [id number] 17:16:00 Test Item Value Reference Range Interpretation [...] 1574) Rare SOURCE(BEAKER) (test code = 2795) [employer] ID - [auto][employer] ID - techCOMPREHENSIVE METABOLIC [id number] 14:32:00 Test Item Value Reference Range Interpretation [...] S NOT APPLICABLE FOR DIALYSIS PATIEN TS. [employer] Wire[employer] ID - JOHN CCBC W/PLT COUNT & AUTO [id number] 13:52:00 Test Item Value Reference Range Interpretation [...] PERCENT (BEAKER) (test code = 2801) SARS-COV2/RT-PCR ([facility])2020-05-27 11:57:00 Test Item Value Reference Range Interpretation Comments SARS-COV2/RT-PCR (test Negative Not Detected, Negative, code = 7512489) See external report for linked test SARS-COV-[address] [facility] KORI (test code = 7656949) Negative result for this test determines that [...] of the Act.Fact Sheet for Healthcare Prov iders:https://www.[employer]/sites/default/files/product/documents/Fact_Sheet_HC _Prunxarjr_Mytr_PHXM-QkO-4.pdfFact Sheet for Healthcare Patients:https://www.[employer]/sites/default/files/product/docume nts/Ples_Vtxdn_Hbpdueqo_Buao_UCHG-LgK-3.pdfPerforming Laboratory:[facility], [place] [address]Q/S, ABDOMINAL, LIMITED 2020-05-27 11:53:00Abdomen limited area? Add comment if clarification is needed.->Right upper quadrantReason for exam:->Assess for cholecystitis or choledocholithiasis [facility] : 1935 Sex: MFINAL [...] was not well visualized. Signed: Lolita Alfaro MDReport Verified Date/Time: 05/27/2020 11:53:24 Reading Location: [address] Body Reading Room ONIN [id number] 23:43:00 Test Item Value Reference Range Interpretation [...] failure, acidosis, acute neurological disease, and persistent tachyarrhythmia.[employer] ID - DBTROPONIN [id number] 17:25:00 Test Item Value Reference Range Interpretation [...] failure, acidosis, acute neurological disease, and persistent tachyarrhythmia.[employer] Wire[employer] ID - DBCOMPREHENSIVE METABOLIC [id number] 14:52:00 Test Item Value Reference Range Interpretation [...] S NOT APPLICABLE FOR DIALYSIS PATIEN TS. [employer] Wire[employer] ID - JOHN CSpecimen slightly ictericPROTHROMBIN TIME/[id number] 14:38:00 Test Item Value Reference Range Interpretation [...] mechanical heart valves.CBC W/PLT COUNT & AUTO [id number] 14:31:00 Test Item Value Reference Range Interpretation [...]
[2023-03-14 20:13] LABS: Absolute Lymphocytes (CBC) 1.3 K/uL (0.7-4.9); Lymphocytes % 13.6 % (15.3-44.8); MCV 98.9 fL (80-100); MPV 7.5 fL (7.6-11.3); Platelets 219 thou/uL (152-406); RBC Red Blood Cell Count 3.44 M/uL (4.33-5.43)
[2023-03-14 20:29] LABS: Potassium 2.6 mEq/L (3.5-5.1)
[2023-03-14 21:07] LABS: White Blood Cell Scan DIFF (OK)
[2023-03-14 21:08] LABS: Platelet Estimate ADEQ
[2023-03-14 21:10] LABS: Blood Morphology Comment NOTED (NOT SEEN); Polychromasia 1+
--- NOTE | 2023-03-14 21:21 | RAD REPORT ---
EXAM DESCRIPTION: CT - CTHCSPWOC - 03/14/2023 8:16 pm CLINICAL HISTORY: WEAKNESS COMPARISON: Head C Spine Cap Wo Con dated 02/22/2023 TECHNIQUE: Axial thin cut noncontrast CT images of the head were obtained. Axial thin cut noncontrast CT images of the cervical spine were obtained. Multiplanar reformatted images were generated and reviewed. All CT scans are performed using dose optimization technique as appropriate and may include automated exposure control or mA/KV adjustment according to patient size. FINDINGS: CT HEAD WITHOUT CONTRAST: No acute hemorrhage, hydrocephalus or extra-axial collection is identified. Multiple foci of near CSF density in the basal ganglia and right cerebellum, stable, suggestive of small remote infarcts. No a reas of brain edema or midline shift. The paranasal sinuses and mastoids are clear.The calvarium is intact. CT CERVICAL SPINE WITHOUT CONTRAST: No fracture or subluxation.Straightening of normal cervical lordosis. Multiple level of facet ankylos is. Anterior bridging osteophytes. No high-grade bony canal stenosis. Variable degrees of neural fora isaac narrowing, up to moderate, worse on the left.No prevertebral soft tissues swelling is identifie d. IMPRESSION: No acute traumatic intracranial or cervical spine findings. Chronic findings as above.
--- NOTE | 2023-03-14 21:37 | RAD REPORT ---
EXAM DESCRIPTION: NEMOChest Single View03/14/2023 7:58 pm CLINICAL HISTORY: RIB PAIN - RIGHT COMPARISON: Chest Single View dated 02/22/2023; Chest Single View dated 12/20/2022; Chest Single View dated 12/01/2022; Chest Single View dated 05/26/2020 TECHNIQUE: Portable AP view of the chest. FINDINGS: Left chest wall pacer and right chest wall medication port stable in configuration. The joann ngs are clear. No pneumothorax or effusion. The cardiomediastinal contours are unremarkable. IMPRESSION: No acute cardiopulmonary process.
[2023-03-14 22:33] LABS: Specific Gravity 1.006 (1.005-1.030); Urine Bilirubin NEGATIVE (Negative); Urine Blood Negative (Negative); Urine Clarity Clear (Clear); Urine Color Colorless (Yellow); Urine Glucose NEGATIVE (Negative); Urine Protein NEGATIVE (Negative); Urine Urobilinogen Normal (Normal)
[2023-03-14] MEDS ORDERED: KCL 20 MEQ/100 mL IVPB 100 ML IV ONE (23:21)
[2023-03-14] MEDS ORDERED: POTASSIUM 25 MEQ EFFERV TAB ONE (23:21)
--- NOTE | 2023-03-15 00:13 | ER ---
Nurse's Notes [facility] Name: Leanna Judge Age: 87 yrs Sex: Male : 1935 Arrival Date: 03/14/2023 Time: 19:27 Bed 8 Private MD: Lam Merida Diagnosis: Fall on same level, unspecified;Hypokalemia Presentation: 03/14 19:29 Chief complaint: EMS states: WEAKNESS RELATED FALL FROM STANDING, NO LOC, NO HEAD bp STRIKE. Coronavirus screen: At this time, the client does not indicate any symptoms associated with coronavirus-19. Ebola Screen: No symptoms or risks identified at this time. Initial Sepsis Screen: Does the patient meet any 2 criteria? No. Patient's initial sepsis screen is negative. Does the patient have a suspected source of infection? No. Patient's initial sepsis screen is negative. Risk Assessment: Do you want to hurt yourself or someone else? Patient reports no desire to harm self or others. Onset of symptoms was March 14, 2023 at 19:00. Care prior to arrival: IV initiated. 20 GA, in the right wrist, Glucose check: 131. 19:29 Method Of Arrival: EMS: [facility] bp 19:29 Acuity: GRACIE 3 bp 19:31 Note ACTIVE CHEMO THROUGH R SC PORT-A-CATH. bp Triage Assessment: 19:31 General: Appears in no apparent distress. comfortable, Behavior is calm, cooperative, bp appropriate for age. Pain: Complains of pain in right lateral anterior chest. Historical: - Allergies: 19:31 No Known Allergies; bp - Home Meds: 19:31 allopurinol 100 mg Oral tab 1 tab once daily [Active]; aspirin 81 mg Oral TbEC once bp daily [Active]; escitalopram oxalate 10 mg Oral tab 1 tab once daily [Active]; gabapentin 100 mg Oral tab 2 tab three times a day [Active]; hydrochlorothiazide 12.5 mg Oral tab 1 tab once daily [Active]; metoprolol succinate 25 mg Oral Tb24 1 tab once daily [Active]; simvastatin 40 mg Oral tab 1 tab once daily [Active]; valsartan 160 mg Oral tab 1 tab once daily [Active]; nitroglycerin 0.4 mg SL subl 1 tab every 5 minutes [Active]; clopidogrel 75 mg Oral tab once daily [Active]; - PMHx: 19:31 Gout; pancreatic CA (pancrease/gallbladd); Myocardial infarction; Hyperlipidemia; bp Atrial fibrillation; - PSHx: 19:31 pancrease/gallbladder stents; PACEMAKER (Hyperlipidemia); bp - Immunization history:: Adult Immunizations up to date. - Social history:: Smoking status: Patient denies any tobacco usage or history of. Screenin:38 [facility] ED Fall Risk Assessment (Adult) History of falling in the last 3 months, bp including since admission No falls in past 3 months (0 pts). Abuse screen: Denies threats or abuse. Denies injuries from another. Nutritional screening: No deficits noted. Tuberculosis screening: No symptoms or risk factors identified. Assessment: 19:38 General: SEE TRIAGE NOTE. bp 20:25 General: Returned from CT moved from trauma bay 2 to room 8 with all personal la4 belongings. . 21:36 Reassessment: Patient appears in no apparent distress at this time. Patient is alert, bp oriented x 3, equal unlabored respirations, skin warm/dry/pink. 23:26 Reassessment: No changes from previously documented assessment. Patient is alert, la4 oriented x 3, equal unlabored respirations, skin warm/dry/pink. Potassium infusing through right wrist IV, tolerating well. Will continue to monitor. Patient denies pain at this time. Cardiovascular: No deficits noted. Vital Signs: 19:29 BP 147 / 70; Pulse 75; Resp 16; Temp 98; Pulse Ox 99% ; bp 21:00 BP 150 / 73; Pulse 65; Resp 18; Pulse Ox 100% on R/A; la4 21:36 BP 136 / 60; Pulse 66; Resp 19; Pulse Ox 100% ; bp 23:00 BP 139 / 62; Pulse 65; Resp 20; Pulse Ox 100% on R/A; Pain 0/10; la4 03/15 00:07 BP 115 / 64; Pulse 68; Resp 16; Pulse Ox 100% ; bp 01:42 BP 128 / 60; Pulse 68; Resp 14; Pulse Ox 100% ; bp 23:00 Pain Scale: Adult la4 [place] Coma Score: 03/14 23:25 Eye Response: spontaneous(4). Motor Response: obeys commands(6). Verbal Response: la4 oriented(5). Total: 15. ED Course: 19:29 Patient arrived in ED. bp 19:31 Triage completed. bp 19:34 Lam Merida DO is Private Physician. bp 19:35 Buster Palafox, RN is Primary Nurse. bp 19:35 Lam Merida DO is Attending Physician. bp 19:37 Arm band placed on. bp 19:38 Patient has correct armband on for positive identification. Bed in low position. Call bp light in reach. Side rails up X2. 19:38 Maintain EMS IV. Dressing intact. Good blood return noted. Site clean \T\ dry. Gauge \T\ bp site: 20 GA R WRIST. 19:59 CXR XRAY In Process Unspecified. EDMS 20:18 Head C Spine Mpr Wo Con In Process Unspecified. EDMS 23:26 Provided Education on: plan of care. la4 03/15 01:41 No provider procedures requiring assistance completed. IV discontinued, intact, bp bleeding controlled, No redness/swelling at site. Pressure dressing applied. Administered Medications: 03/14 23:22 Drug: Potassium Chloride IV 20 mEq IV at calculated rate once; administer over 1-2 la4 hours Route: IV; Rate: calculated rate; Infused Over: 2 hrs; Site: right wrist; Delivery: Primary tubing; 03/15 01:42 Follow up: IV Status: Completed infusion; IV Intake: 100ml bp 03/14 23:23 Drug: Potassium PO Effervescent Tablet 50 mEq PO once; dissolve in 4 ounces of water or la4 juice Route: PO; 03/15 01:42 Follow up: Response: No adverse reaction bp Medication: 03/14 19:38 VIS not applicable for this client. bp Intake: 03/15 01:42 IV: 100ml; Total: 100ml. bp Output: 03/14 23:25 Urine: 375ml (Voided); Total: 375ml. la4 Outcome: 03/15 00:12 Discharge ordered by MD. ms3 00:56 Condition: stable la4 00:56 Discharge instructions given to patient, Instructed on discharge instructions, follow up and referral plans. Demonstrated understanding of instructions, follow-up care, medications, 01:41 Discharged to home via wheelchair, with family, bp 01:42 Patient left the ED. bp 01:49 Discharged to home via wheelchair, escorrted to lobby to await ride. la4 Signatures: Dispatcher [employer] EDMS Vivienne, Buster, RN RN bp Lam Merida, DO GARCIA ms3 Palak Singh RN RN la4
--- NOTE | 2023-03-15 00:13 | EDPHYS ---
Physician Documentation [facility] Name: Leanna Judge Age: 87 yrs Sex: Male : 1935 Arrival Date: 03/14/2023 Time: 19:27 Bed 8 Private MD: Lam Merida ED Physician Lam Merida HPI: 03/15 00:48 This 87 yrs old Male presents to ER via EMS with complaints of Fall Injury. ms3 00:48 87-year-old male with past medical history of gout, pancreatic cancer, myocardial ms3 infarction, hyperlipidemia, atrial fibrillation presents via [facility] EMS status post fall. Patient states he fell and hit the doorway due to his arms and legs becoming weak. Patient denies nausea, vomiting, loss of consciousness. Patient denies pain. Historical: - Allergies: 03/14 19:31 No Known Allergies; bp - Home Meds: 19:31 allopurinol 100 mg Oral tab 1 tab once daily [Active]; aspirin 81 mg Oral TbEC once bp daily [Active]; escitalopram oxalate 10 mg Oral tab 1 tab once daily [Active]; gabapentin 100 mg Oral tab 2 tab three times a day [Active]; hydrochlorothiazide 12.5 mg Oral tab 1 tab once daily [Active]; metoprolol succinate 25 mg Oral Tb24 1 tab once daily [Active]; simvastatin 40 mg Oral tab 1 tab once daily [Active]; valsartan 160 mg Oral tab 1 tab once daily [Active]; nitroglycerin 0.4 mg SL subl 1 tab every 5 minutes [Active]; clopidogrel 75 mg Oral tab once daily [Active]; - PMHx: 19:31 Gout; pancreatic CA (pancrease/gallbladd); Myocardial infarction; Hyperlipidemia; bp Atrial fibrillation; - PSHx: 19:31 pancrease/gallbladder stents; PACEMAKER (Hyperlipidemia); bp - Immunization history:: Adult Immunizations up to date. - Social history:: Smoking status: Patient denies any tobacco usage or history of. ROS: 03/15 00:48 Constitutional: Negative for fever, and chills. Neck: Negative for injury, pain, and ms3 swelling, Cardiovascular: Negative for chest pain, and palpitations. Respiratory: Negative for shortness of breath, cough, wheezing, and pleuritic chest pain, Abdomen/GI: Negative for abdominal pain, nausea, vomiting, diarrhea, and constipation, MS/extremity: Positive for Generalized weakness, All other systems are negative, Exam: 00:48 Constitutional: This is a well developed, well nourished patient who is awake, alert, ms3 and in no acute distress. Head/Face: Normocephalic, atraumatic. Neck: Trachea midline, no cervical lymphadenopathy. Supple, full range of motion without nuchal rigidity, or vertebral point tenderness. No Meningismus. Chest/axilla: Normal chest wall appearance and motion. Nontender with no deformity. Cardiovascular: Regular rate and rhythm with a normal S1 and S2. No gallops, murmurs, or rubs. Normal PMI, no JVD. No pulse deficits. Respiratory: Lungs have equal breath sounds bilaterally, clear to auscultation and percussion. No rales, rhonchi or wheezes noted. No increased work of breathing, no retractions or nasal flaring. Abdomen/GI: Soft, non-tender, with normal bowel sounds. No distension or tympany. No guarding or rebound. No evidence of tenderness throughout. Skin: Warm, dry with normal turgor. Normal color with no rashes, no lesions, and no evidence of cellulitis. 01:17 ECG was reviewed by the Attending Physician. ms3 Vital Signs: 03/14 19:29 BP 147 / 70; Pulse 75; Resp 16; Temp 98; Pulse Ox 99% ; bp 21:00 BP 150 / 73; Pulse 65; Resp 18; Pulse Ox 100% on R/A; la4 21:36 BP 136 / 60; Pulse 66; Resp 19; Pulse Ox 100% ; bp 23:00 BP 139 / 62; Pulse 65; Resp 20; Pulse Ox 100% on R/A; Pain 0/10; la4 03/15 00:07 BP 115 / 64; Pulse 68; Resp 16; Pulse Ox 100% ; bp 01:42 BP 128 / 60; Pulse 68; Resp 14; Pulse Ox 100% ; bp 23:00 Pain Scale: Adult la4 [place] Coma Score: 03/14 23:25 Eye Response: spontaneous(4). Motor Response: obeys commands(6). Verbal Response: la4 oriented(5). Total: 15. MDM: 19:47 Patient medically screened. ms3 03/15 00:48 Differential diagnosis: closed head injury, fracture, sprain, strain. Data reviewed: ms3 vital signs, nurses notes, lab test result(s), radiologic studies, and as a result, I will discharge patient. I considered the following discharge prescriptions or medication management in the emergency department Medications were administered in the Emergency Department. See MAR. Independent interpretation of the following test(s) in the Emergency Department EKG: See my EKG interpretation above. Historians other than the Patient: EMS: [facility]. Care significantly affected by the following chronic conditions: Cancer. Counseling: I had a detailed discussion with the patient and/or guardian regarding the historical points, exam findings, and any diagnostic results supporting the discharge/admit diagnosis, lab results, radiology results, the need for outpatient follow up, to return to the emergency department if symptoms worsen or persist or if there are any questions or concerns that arise at home. Special discussion: I discussed with the patient/guardian in detail that at this point there is no indication for admission to the hospital. It is understood, however, that if the symptoms persist or worsen the patient needs to return immediately for re-evaluation. ED course: Discussed labs, imaging with the patient. Patient wishes to be discharged. Patient given 50 p.o. potassium and 20 mill equivalents IV potassium. Patient to follow-up with primary care physician in 2 to 3 days. Patient understands and agrees with plan. All questions were answered. Return precautions discussed include worsening symptoms, or any other concerns. On reevaluation patient is alert and oriented, in no apparent distress, nontoxic-appearing, speaking full sentences. 03/14 19:36 Order name: CBC with Diff; Complete Time: 21:54 bp 03/14 19:36 Order name: BMP; Complete Time: 21:54 bp 03/14 19:53 Order name: Urinalysis w/ reflexes; Complete Time: 22:35 bp 03/14 20:17 Order name: CBC Smear Scan; Complete Time: 21:54 EDMS 03/14 21:09 Order name: Manual Differential; Complete Time: 21:54 EDMS 03/14 19:36 Order name: CXR XRAY; Complete Time: 21:54 bp 03/14 19:46 Order name: Head C Spine Mpr Wo Con; Complete Time: 21:54 EDMS 03/14 19:36 Order name: EKG; Complete Time: 19:37 bp 03/14 19:36 Order name: EKG - Nurse/Tech; Complete Time: 19:54 bp EC:17 Rate is 72 beats/min. Rhythm is regular. Left axis deviation noted. QRS interval is ms3 prolonged. Clinical impression: Ventricular paced. Interpreted by me. Reviewed by me. Administered Medications: 03/14 23:22 Drug: Potassium Chloride IV 20 mEq IV at calculated rate once; administer over 1-2 la4 hours Route: IV; Rate: calculated rate; Infused Over: 2 hrs; Site: right wrist; Delivery: Primary tubing; 03/15 01:42 Follow up: IV Status: Completed infusion; IV Intake: 100ml bp 03/14 23:23 Drug: Potassium PO Effervescent Tablet 50 mEq PO once; dissolve in 4 ounces of water or la4 juice Route: PO; 03/15 01:42 Follow up: Response: No adverse reaction bp Disposition Summary: 03/15/23 00:12 Discharge Ordered Notes: Location: Home ms3 Condition: Stable ms3 Diagnosis - Fall on same level, unspecified ms3 - Hypokalemia ms3 Followup: ms3 - With: Private Physician - When: 2 - 3 days - Reason: Recheck today's complaints Discharge Instructions: - Discharge Summary Sheet ms3 - Potassium Content of Foods ms3 - Fall Prevention in the Home, Adult, [id number] ms3 - Hypokalemia ms3 Forms: - Medication Reconciliation Form ms3 - Thank You Letter ms3 - Antibiotic Education ms3 - Prescription Opioid Use ms3 - Patient Portal Instructions ms3 - Leadership Thank You Letter ms3 Prescriptions: - potassium chloride 20 mEq Oral Tablet, ER Particles/Crystals - take 1 tablet ORAL route 2 times per day; 20 tablet; Refills: 0, Product ms3 Selection Permitted Critical care time excluding procedures: 03/14 23:28 Critical care time: Bedside Care: 25 minutes, Consultation: 5 minutes. Total time: 30 ms3 minutes Signatures: Dispatcher [employer] Buster Cunningham, RN RN Lam Basilio DO DO ms3 Palak Singh RN RN la4 Corrections: (The following items were deleted from the chart) 19:46 19:37 Head Brain Wo Cont+CT.RAD.BRZ ordered. EDMS EDMS 19:47 19:37 C Spine Wo Con+CT.RAD.BRZ ordered. EDMS EDMS
--- NOTE | 2023-03-16 18:08 | EKG ---
Test Date: 2023-03-14 Test Time: 19:50:54 Certified Emergency Vehicle Technician: Brianna Cowart MEASUREMENT RESULTS: Intervals: Rate: 120 CA: 80 QRSD: 150 QT: 480 QTc: 678 [place]: P: -88 CA: 80 QRS: -48 T: 97 INTERPRETIVE STATEMENTS: Ventricular-paced complex(es) Electronically Signed On 03-16-23 18:06:16 CDT by Savage Bethea
== END 2023-03-15 01:42 | disposition home or self-care (01) ==
LOC: ER 19:27
DX: E87.6 Hypokalemia (principal); W18.30XA Fall on same level, unspecified, initial encounter; I48.91 Unspecified atrial fibrillation; E78.5 Hyperlipidemia, unspecified; I25.2 Old myocardial infarction; Z79.82 Long term (current) use of aspirin
CPT/HCPCS: 96365; 93005; 85025; 80048; 36415; 81003; 70450; 72125; 71045; 99284; 96366; J3480

== ENCOUNTER 2023-03-31 01:24 | Inpatient (IN) | payer OTHER, BC ==
--- OUTSIDE RECORDS SUMMARY | 2023-03-31 01:31 | XMS REPORT | Continuity of Care Document ---
:1935 Author Organization [facility] Address [address] [place] [address] [place] [id number] Care Team Providers Name Role Phone Asked, No Pcp Primary Care Physician Unavailable JOSE LUIS REIS Attending Clinician Unavailable GINA NAPOLES Attending Clinician Unavailable ERIKA HINOJOSA Attending Clinician Unavailable MERT MILLER Attending Clinician Unavailable Angela EPPS, Mert Attending Clinician Emma GOLD, Miroslava Medina Attending Clinician Unavailable Pascual COMMERCIAL LENDING ASSISTANT, Gerson Attending Clinician Manuel GOLD, Rianna Thurman Attending Clinician Unavailable Virtual, Surgeon Attending Clinician Unavailable Ana Ballesteros RN Attending Clinician Unavailable PRINECSS GARSIA Attending Clinician Unavailable Izabella Lopes PA-C Attending Clinician Princess Rich MD Attending Clinician [phone] PRINCESS RICH Attending Clinician Unavailable Princess Garsia MD Attending Clinician Tripp GOLD, Roxie Navarrete Attending Clinician Unavailable Nav EPPS, Alphonse Reyes Attending Clinician [phone] Merchant EPPSEllen Attending Clinician Jose Luis Reis MD Attending Clinician [phone] JACKIE PKA Attending Clinician Unavailable Rosalba Chau Attending Clinician Unavailable Konstantin Morataya MD Attending Clinician [phone] Cyndee Patel Attending Clinician KONSTANTIN MORATAYA Attending Clinician Unavailable GINA BOSWELL Attending Clinician Unavailable ELLEN MELO Admitting Clinician Unavailable ERIKA HINOJOSA Admitting Clinician Unavailable MERT MILLER Admitting Clinician Unavailable JACKIE PAK Admitting Clinician Unavailable HORACIO LUGO Admitting Clinician Unavailable GINA BOSWELL Admitting Clinician Unavailable Payers Payer Name Policy Type Policy Number Effective Date Expiration Date S johnny MEDICARE A B [id number] 1998 00:00:00 BCBS FED [id number] 2019 00:00:00 Problems Condition Condition Condition Status Onset Resolution Last Treating Co mments Source Name Details Category Date Date Treatment Clinician Date Hypokalemi Hypokalemi Disease Active [facility] 00 [place] Malignant Malignant Disease Recurre [facility] [...] Nany kes on on 00:00: Medical 00 [place] Immunity Immunity Disease Active [facility] 8 [facility] testing testing 00:[facility]: Medical 00 [place] 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 8-16 [facility] disease disease 00:00: Medical 00 [place] Hypertensi Hypertensi Disease Active [facility]16 [facility] 00:[facility]: Medical 00 [place] Pancreatit Pancreatit Disease Active C [facility] [...] arrhythmia 05-31 st 00[facility] [place] Recurre [facility] (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 Nany kes l l 00:00: Medical infarction infarction 00 Ce nter ) ) Allergies, Adverse Reactions, Alerts Allergy Allergy Status Severity Reaction(s) Onset Inactive Treating Comm ents Source Name Type Date Date Clinician NO KNOWN Allergy Active [facility] Family History Family Member Diagnosis Comments Start Date Stop Date Source Natural father Stroke [facility] Natural mother Cancer [facility] Natural mother Heart disease [facility] Natural brother Cancer [facility] Natural sister Brain cancer [facility] Social History Social Habit Start Date Stop Date Quantity Comments Source History SD[facility] History [facility] Alcohol Std Drinks Hospit al History of tobacco Cigarette Smoker [facility] use Medical Center History [facility] Sexual orientation Method [facility] Hospital Exposure to 2023-01-30 2023-02-[address] [facility] SARS-CoV-2 (event) 00:00:00 13:15:00 Medica l Center History [facility] 2022-12-01 2022-12-[address] [facility] Transport Med 00:00:00 00:00:[address] [facility] 2022-12-01 2022-12-[address] [facility] Housing Unable to 00:00:00 00:00:00 Medical Center Pay History [facility] 2022-12-01 2022-12-[address] [facility] Housing Places 00:00:00 00:00:00 Medical Ce nter Lived History [facility] 2022-12-01 2022-12-[address] [facility] Housing Homeless 00:00:00 00:00:00 Medical Center Last Year Alcohol intake 2019-06-03 2019-06-03 Lifetime [facility] 00:00:00 00:00:00 non-drinker Hospital (finding) History of Social 2019-06-01 2019-06-[address] function 00:00:00 00:00:00 Hospital History SDOH 2019-05-31 2019-05-31 1 [facility] Alcohol Frequency 00:00:00 00:00:00 Hospita l Sex Ass[birth year] At [birth year] [facility] 00:00:00 00:00:00 Hospital Smoking Status Start Date Stop Date Source Ex-smoker 2023-01-07 00:00:00 2023-01-07 00:00:[address] [facility] Never smoked tobacco [facility] Medications Ordered Filled Start Stop Current Ordering Indication Dosage Frequency Signature Comments Components Source Medication Medication Date Date Medication? Clinician (SIG) Name Name gabapentin 2022-05 Yes 200mg Q.[id number] Take [address] (NEURONTIN) 0-11 [id number] capsules [facility] 100 MG 10:05: 3D (200 mg Medical capsule 49 total) by Center mouth 3 (three) times daily. allopurinoL 2022-05 Yes 100mg QD Take [address] (ZYLOPRIM) 0-11 tablet [facility] 100 MG 10:05: (100 mg Medical tablet 49 total) by Center mouth daily. aspirin 81 2022-05 Yes 81mg QD Take 1 [facility] MG EC 0-11 tablet (81 [facility] tablet 10:05: mg total) Medica l 49 by mouth Center daily. furosemide 2022-05 Yes 40mg QD Take 1 [facility] (LASIX) 40 0-10 tablet (40 Suresh es MG tablet 00:00: mg total) Med ical 00 by mouth Center daily. cefUROXime 2022-05 Yes 250mg Q.5D Take [address] (CEFTIN) 0-04 tablet [facility] 250 MG 00:00: (250 mg Medical tablet 00 total) by Center mouth 2 (two) times daily. gabapentin Yes 200mg Q.[id number] Take [address] (NEURONTIN) 9-27 [id number] capsules [facility] 100 MG 10:25: 3D (200 mg Medical capsule 16 total) by Center mouth 3 (three) times daily. allopurinoL Yes 100mg QD Take [address] (ZYLOPRIM) 9-27 tablet [facility] 100 MG 10:25: (100 mg Medical tablet 16 total) by Center mouth daily. aspirin 81 2022-0 Yes 81mg QD Take 1 [facility] MG EC 9-27 tablet (81 [facility] tablet 10:25: mg total) Medica l 16 by mouth Center daily. potassium 2022-0 Yes hypokalemia [address] [facility] chloride SA 9-27 BID for 10 Nany kes (K-DUR,KLOR 00:00: days and Me dical -CON-M) 20 00 stop. Center MEQ tablet potassium 2022-0 Yes hypokalemia [address] [facility] chloride SA 9-27 BID for 10 Nany kes (K-DUR,KLOR 00:00: days and Me dical -CON-M) 20 00 stop. Center MEQ tablet magnesium 2022-0 Yes Hypomagnese 250mg Q.5D Take [address] oxide 250 9-13 zayda tablet [facility]ukes mg 00:00: (250 mg Medical magnesium 00 total) by Cente r Tab tablet mouth 2 (two) times daily. magnesium 2022-0 Yes Hypomagnese 250mg Q.5D Take [address] oxide 250 9-13 zayda tablet [facility]ukes mg 00:00: (250 mg Medical magnesium 00 total) by Cente r Tab tablet mouth 2 (two) times daily. ondansetron 2022-0 2022- Yes 8mg Take [address] [facility] (ZOFRAN) 8 - 11-05 tablet (8 Suresh es MG tablet 00:00: 23:59 mg total) Me dical 00 :00 by mouth Center every 8 (eight) hours as needed for Nausea for up to 60 days. ondansetron 2022-0 2022- Yes 8mg Take [address] (ZOFRAN) 8 - 11-05 tablet (8 Suresh es MG tablet 00:00: 23:59 mg total) Me dical 00 :00 by mouth Center every 8 (eight) hours as needed for Nausea for up to 60 days. furosemide 2022-0 202- No 20mg Q.5D Take [address] (LASIX) 20 8-30 08-30 tablet (20 Nany kes MG tablet 08:48: 00:00 mg total) Me dical 47 :00 by mouth 2 Center (two) times daily. furosemide 2022- No 20mg Q.5D Take [address] (LASIX) 20 01-21 08-30 tablet (20 Nany kes MG tablet 08:48: 00:00 mg total) Me dical 47 :00 by mouth 2 Center (two) times daily. escitalopra 2022-2022- No 20mg QD Take [address] m oxalate 8- 08-30 tablets [facility]ukes (LEXAPRO) 08:35: 00:00 (20 mg Medic al 10 MG 03 :00 total) by Center tablet mouth daily. escitalopra 2022-0 2022- No 20mg QD Take [address] m oxalate 8 08-30 tablets [facility]ukes (LEXAPRO) 08:35: 00:00 (20 mg Medic al 10 MG 03 :00 total) by Center tablet mouth daily. valsartan 2022-2022- No 320mg QD Take [address] (DIOVAN) 8-30 tablet [facility] 320 MG 08:34: 00:00 (320 mg Medical tablet 50 :00 total) by Center mouth daily. valsartan 2022-0 2022- No 320mg QD Take [address] (DIOVAN) 8 08-30 tablet [facility]ukes 320 MG 08:34: 00:00 (320 mg Medical tablet 50 :00 total) by Center mouth daily. metoprolol 2022-0 2022- No 25mg QD Take [address] succinate 8-30 -30 tablet (25 Suresh es (TOPROL-XL) 08:34: 00:00 mg total) Medical 25 MG 24 hr 41 :00 by mouth Cent er tablet daily. metoprolol 2022-0 2022- No 25mg QD Take [address] succinate 8-30 08-30 tablet (25 Suresh es (TOPROL-XL) 08:34: 00:00 mg total) Medical 25 MG 24 hr 41 :00 by mouth Cent er tablet daily. metoprolol 2022-0 Yes 25mg QD Take 1 [...] tablet mouth daily. gabapentin 2023-0 Yes 200mg Q.[id number] Take [address] (NEURONTIN) 8-16 [id number] capsules [facility] 100 MG 13:09: 3D (200 [...] tablet mouth daily. gabapentin 2023-0 Yes 200mg Q.[id number] Take [address] (NEURONTIN) 7-13 [id number] capsules [facility] 100 MG 18:24: 3D (200 [...] by Center mouth daily as needed. nitroglycer 3-0 2023- No .6mg Place 1 CH I [...] Center mouth daily as needed. nitroglycer 2022-0 3- No .6mg Place [address] [...] QD Take 1 CHI S t succinate - tablet (25 Luke s (TOPROL-XL) 15:34: mg total) M edical 25 MG 24 hr 48 by mouth Cent er tablet daily. valsartan 2023-0 Yes 320mg QD Take 1 [facility] t (DIOVAN) -13 tablet [facility] 320 MG 15:34: (320 mg Medical tablet 48 total) by Center mouth daily. escitalopra 2023-0 Yes 20mg QD Take [address] m oxalate - tablets [facility]ukes (LEXAPRO) 15:34: (20 mg Medica l 10 MG 48 total) by Center tablet mouth daily. gabapentin 2022-0 Yes 200mg Q.[id number] Take [address] (NEURONTIN) 7-13 [id number] capsules [facility]ukes 100 MG 15:34: 3D (200 [...] 16:37: 00:00 daily. Medic al 51 :00 [place] clopidogreL 2022-0 2023- No 75mg QD Take [address] (PLAVIX) 75 7-10 07-10 by mouth Suresh es mg tablet 16:37: 00:00 daily. Medic al 51 :00 Center clopidogreL 2022-0 3- No 75mg QD Take [address] (PLAVIX) 75 7-10 07-10 by mouth Suresh es mg tablet 16:37: 00:00 daily. Medic al 51 :00 [place] clopidogreL 2022-0 2023- No 75mg QD Take [address] (PLAVIX) 75 7-10 07-10 by mouth Suresh es mg tablet 16:37: 00:00 daily. Medic al 51 :00 [place] clopidogreL 2022-0 3- No 75mg QD Take [address] (PLAVIX) 75 7-10 07-10 by mouth Suresh es mg tablet 16:37: 00:00 daily. Medic al 51 :00 Center escitalopra 3-0 Yes 20mg QD Take [address] m oxalate 6-28 tablet (20 Luke s (LEXAPRO) 00:00: mg total) Med ical 20 MG 00 by mouth Center tablet every morning. escitalopra 3-0 Yes 20mg QD Take [address] [...] 13:43: mouth Medical tablet 19 daily. Center escitalopra Yes 10mg QD Take [address] m oxalate 1-07 by mouth [facility]ukes (LEXAPRO) 13:43: daily. Medica l 10 MG 19 Center tablet gabapentin Yes 100mg Q.[id number] Take [address] (NEURONTIN) 1-07 [id number] mg by L ukes 100 MG 13:43: [...] daily as Medical capsule 19 needed. Center metoprolol Yes 25mg QD Take 25 [...] MG 13:43: mouth Medical tablet 19 daily. [place] escitalopra Yes 10mg QD Take [address] m oxalate 07 by mouth [facility]ukes (LEXAPRO) 13:43: daily. Medica l 10 MG 19 Center tablet gabapentin Yes 100mg Q.[id number] Take [address] (NEURONTIN) 1-07 [id number] mg by L ukes 100 MG 13:43: 3D mouth 3 Medical capsule 19 (three) Center times daily. allopurinoL Yes 100mg QD Take [address] (ZYLOPRIM) 1-07 mg by [facility]ukes 100 MG 13:43: mouth Medical tablet 19 daily. [place] aspirin 81 Yes 81mg QD Take [address] MG EC 07 by mouth [facility]ukes tablet 13:43: daily. Medical [...] 00 total) by Center mouth daily. atorvastati 3- No 40mg QD Take 0.[address] n (LIPITOR) 1-07 07-13 tablets Luke s 80 MG 00:00: [...] phyllis 47 l gabapentin 2020-0 Yes 100mg Q.[id number] Take 100 Methodi (NEURONTIN) 1-09 [id number] mg by s t 100 mg 12:41: [...] phyllis 47 l gabapentin 2020-0 Yes 100mg Q.[id number] Take 100 [facility] (NEURONTIN) 1-09 [id number] mg by s t 100 mg 12:41: [...] phyllis 47 l gabapentin 2020-0 Yes 100mg Q.[id number] Take 100 [facility] (NEURONTIN) 1-09 [id number] mg by s t 100 mg 12:41: [...] phyllis 47 l gabapentin 2020-0 Yes 100mg Q.[id number] Take 100 [facility] (NEURONTIN) 1-09 [id number] mg by s t 100 mg 12:41: [...] phyllis 47 l gabapentin 2020-0 Yes 100mg Q.[id number] Take 100 [facility] (NEURONTIN) 1-09 [id number] mg by s t 100 mg 12:41: [...] Immunizations Ordered Filled Immunization Date Status Comments [facility] e Immunization Name Name MARA ROEID-19 2020-07-13 Completed [facility] VACCINATION 00:00:00 [facility] COVID-19 2020-07-13 Completed [facility] MRNA VACCINATION 00:00:00 [facility] COVID-19 2020-06-22 Completed [facility] 2020-06-22 Completed [facility] MRNA VACCINATION 00:00:00 [facility] MARA WALKER-19 Unknown Completed [facility] MRNA VACCINATION [facility] DENISE-19 Unknown Completed [facility] MRNA VACCINATION [facility] DENISE-19 Unknown Completed [facility] MRNA VACCINATION [facility] COVID-19 Unknown Completed [facility] MRNA VACCINATION [facility] BHUPINDERID-19 Unknown Completed [facility] MRNA VACC[facility]19 Unknown Completed [facility]ACCINATION Hospital Vital Signs Vital Name Observation Time Observation Value Comments Source HEIGHT 2020-05-26 13:26:00 179.8 cm WEIGHT 2020-05-26 13:26:00 98.249 kg HEIGHT 2023-03-18 09:26:00 175.3 cm WEIGHT 2023-03-18 09:26:00 90.719 kg HEIGHT 2023-03-04 12:12:00 175.3 cm WEIGHT 2023-03-04 12:12:00 91.581 kg HEIGHT 2023-03-04 12:12:00 175.3 cm WEIGHT 2023-03-04 12:12:00 91.581 kg HEIGHT 2023-03-04 09:57:00 175.3 cm WEIGHT 2023-03-04 09:57:00 92.216 kg HEIGHT 2023-03-04 09:57:00 175.3 cm WEIGHT 2023-03-04 09:57:00 92.216 kg HEIGHT 2023-02-18 12:17:00 175.3 cm WEIGHT [...] WEIGHT 2020-05-26 13:26:00 98.249 kg Systolic blood 2023-03-04 12:12:00 154 mm[Hg] [facility] Diastolic blood 2023-03-04 12:12:00 72 mm[Hg] [facility] Heart rate 2023-03-04 12:12:00 65 /min [facility] Body temperature 2023-03-04 12:12:00 36.28 Hannah [facility] Respiratory rate 2023-03-04 12:12:00 19 /min [facility] Body height 2023-03-04 12:12:00 175.3 cm [facility] Body weight 2023-03-04 12:12:00 91.581 kg [facility] BMI 2023-03-04 12:12:00 29.82 kg/m2 [facility] Oxygen saturation in 2023-03-04 12:12:00 99 /min [facility] Arterial blood by Medical Ce nter Pulse oximetry Systolic blood 2023-02-18 12:17:00 157 mm[Hg] [facility] Diastolic blood 2023-02-18 12:17:00 69 mm[Hg] [facility] Heart rate 2023-02-18 12:17:00 62 /min [facility] Body temperature 2023-02-18 12:17:00 36.11 Hannah [facility] Respiratory rate 2023-02-18 12:17:00 18 /min [facility] Body height 2023-02-18 12:17:00 175.3 cm [facility] Body weight 2023-02-18 12:17:00 86.955 kg [facility] BMI 2023-02-18 12:17:00 28.31 kg/m2 [facility] Oxygen saturation in 2023-02-18 12:17:00 99 /min [facility] Arterial blood by Medical Ce nter Pulse oximetry Systolic blood 2023-01-07 13:04:00 135 mm[Hg] [facility] Diastolic blood 2023-01-07 13:04:00 67 mm[Hg] [facility] Heart rate 2023-01-07 13:04:00 60 /min [facility] Body temperature 2023-01-07 13:04:00 36.78 Hannah [facility] Respiratory rate 2023-01-07 13:04:00 20 /min [facility] Body height 2023-01-07 13:04:00 172.7 cm [facility] Body weight 2023-01-07 13:04:00 89.359 kg [facility] BMI 2023-01-07 13:04:00 29.95 kg/m2 [facility] Oxygen saturation in 2023-01-07 13:04:00 98 /min [facility] Arterial blood by Medical Ce nter Pulse oximetry Systolic blood 2022-12-04 12:50:00 128 mm[Hg] [facility] Diastolic blood 2022-12-04 12:50:00 67 mm[Hg] [facility] Heart rate 2022-12-04 12:50:00 60 /min [facility] Oxygen saturation in 2022-12-04 12:50:00 97 /min [facility] Arterial blood by Medical Ce nter Pulse oximetry Respiratory rate 2022-12-04 11:15:00 16 /min [facility] Body temperature 2022-12-04 07:00:00 36.22 Hannah [facility] Body height 2022-12-01 17:43:00 179 cm [facility] Body weight 2022-12-01 17:43:00 98.2 kg [facility] BMI 2022-12-01 17:43:00 30.65 kg/m2 [facility] Procedures Procedure Date / Time Performing Clinician Source Performed CBC W/PLT COUNT & AUTO 2023-03-04 09:47:00 [facility] COMPREHENSIVE METABOLIC 2023-03-04 09:47:00 [facility] MAGNESIUM 2023-03-04 09:47[facility] COUNT & AUTO 2023-03-04 09:47:00 [facility] MAGNESIUM 2023-02-18 12:14:00 [facility] CBC W/PLT COUNT & AUTO 2023-02-18 09:48:00 [place]-GbenGerson coombs [facility] COMPREHENSIVE METABOLIC 2023-02-18 09:48:00 [place]-Jpenmalvin, Abiodu n [facility] HEPATITIS C ANTIBODY 2023-02-18 09:48:00 [facility] HEPATITIS B PANEL 2023-02-18 09:48:00 Cristianformerly vidant [facility] CBC W/PLT COUNT & AUTO 2023-02-18 09:48:00 [place]-Gerson Garcia [facility] CARBOHYDRATE ANTIGEN 19-9 2023-02-18 09:48:00 [place]-Gbenmalvin, Abio dawit [facility] ([place] 19-9) [facility] PROCEDURE, IN 2023-02-09 20:00:00 Virtual, Surgeon [facility] NON-OPERATING ROOM SETTING [facility] IR PORT-A-CATH PLACEMENT 2023-02-09 15:17:00 Mert Miller [facility] CBC W/PLT COUNT & AUTO 2023-02-04 08:59:00 Angela [facility] COMPREHENSIVE METABOLIC 2023-02-04 08:59:[address] [facility] MAGNESIUM 2023-02-04 08:59:00 Angela [facility] HEPATITIS B PANEL 2023-02-04 08:59:00 [facility] HEPATITIS C ANTIBODY 2023-02-04 08:59:00 [facility] CBC W/PLT COUNT & AUTO 2023-02-04 08:59:00 Angela [facility] COMPREHENSIVE METABOLIC 2023-01-21 09:37:00 Dc Lopez I [facility] BILIRUBIN, DIRECT 2023-01-21 09:37:00 Dc Lopez [facility] CBC W/PLT COUNT & AUTO 2023-01-21 09:37:00 John Dc [facility] PROTHROMBIN TIME/INR 2023-01-21 09:37:00 John Kaiser [facility] HEPATITIS A ANTIBODY, IGG 2023-01-21 09:37:[address] [facility] HEPATITIS B SURFACE 2023-01-21 09:37:00 Rudolph [facility] ANTIGEN [facility] HEPATITIS B SURFACE 2023-01-21 09:37:00 Dc Lopez [facility] ANTIBODY [facility] HEPATITIS B CORE ANTIBODY, 2023-01-21 09:37:00 John Dc [facility] TOTAL [facility] HEPATITIS C ANTIBODY 2023-01-21 09:37:00 John Kaiser [facility] S [facility] IRON, TIBC, % SAT. 2023-01-21 09:37:00 Dc Lopez [facility] (WITHOUT FERRITIN) [facility] 2023-01-21 09:37:[address] [facility] HWALS-5-[id number]\\, 2023-01-21 09:37:00 Dc Lopez [facility] SERUM [facility] CERULOPLASMIN 2023-01-21 09:37:00 Dc Lopez [facility] ANTI-NUCLEAR ANTIBODY 2023-01-21 09:37:[address] [facility] (SUZANNE) [facility] ACTIN (SMOOTH MUSCLE) 2023-01-21 09:37:[address] [facility] ANTIBODY, IGG [facility] MITOCHONDRIA M2 ANTIBODY 2023-01-21 09:37:[address] [facility] (IGG) [facility] ALPHA FETOPROTEIN (AFP), 2023-01-21 09:37:00 Dc Lopez [facility] TUMOR MARKER [facility] CBC W/PLT COUNT & AUTO 2023-01-21 09:37:00 Dc Lopez [facility] DIFFERENTIAL [facility] CBC W/PLT COUNT & AUTO 2023-01-07 16:38:00 Mert Miller [facility] COMPREHENSIVE METABOLIC 2023-01-07 16:38:[address] [facility] CBC W/PLT COUNT & AUTO 2023-01-07 16:38:00 [facility] CARBOHYDRATE ANTIGEN 19-9 2023-01-07 16:38:00 Mert Miller [facility] ([place] 19-9) [facility] CT CHEST WITHOUT IV 2022-12-04 14:10:00 Jose Luis Reis [facility] CONTRAST [facility] MR ABDOMEN WITH & WITHOUT 2022-12-04 12:36:00 Jackie Pak [facility] IV CONTRAST [facility] XR CHEST 2 VIEWS 2022-12-04 09:45:00 Gina Napoles [facility] CARBOHYDRATE ANTIGEN 19-9 2022-12-04 04:01:00 Jose Luis Reis I [facility] ([place] 19-9) [facility] COMPREHENSIVE METABOLIC 2022-12-04 04:01:00 Jose Luis Reis [facility] PANEL [facility] PACEMAKER CHECK WITH 2022-12-04 00:00:00 Rosalba Chau [facility] CBC W/PLT COUNT & AUTO 2022-12-03 12:49:00 Ana LuisaGrant dasilva [facility] DIFFERENTIAL [facility] COMPREHENSIVE METABOLIC 2022-12-03 12:49:00 Ana LuisaGrant [facility] PANEL [facility] CBC W/PLT COUNT & AUTO 2022-12-03 12:49:00 Ana Luisa, Grant [facility] DIFFERENTIAL [facility] REPORT OF PROCEDURE - 2022-12-02 14:55:31 Joey [facility] ENDOSCOPY [facility] REPORT OF PROCEDURE - 2022-12-02 14:48:09 Joey [facility] ENDOSCOPY [facility] TISSUE EXAM 2022-12-02 14:22:00 Joey [facility] EGD 2022-12-02 13:20:00 Joey [facility] (ESOPHAGOGASTRODUODENOSCOP [facility] Y) ERCP, WITH SPHINCTEROTOMY 2022-12-02 13:20:00 Joey [facility] PROCEDURE W/ C-ARM 2022-12-02 13:20:[facility] ULTRASOUND, UPPER GI 2022-12-02 13:20:00 Joey [facility] TRACT, ENDOSCOPIC, WITH [facility] FINE NEEDLE ASPIRATION ENDOSCOPIC RETROGRADE 2022-12-02 13:20:00 [facility] CHOLANGIOPANCREATOGRAPHY, [facility] WITH BILE DUCT STENT INSERTION CBC (HEMOGRAM ONLY) 2022-12-02 05:38:00 Jackie Pak [facility] BASIC METABOLIC PANEL 2022-12-02 05:38:00 Jackie Pak [facility] HEPATIC FUNCTION PANEL 2022-12-02 05:38:00 Jackie Pak [facility] PROTHROMBIN TIME/INR 2022-12-02 05:38:00 Jackie Pak [facility] ARRYTHMIA IMPLANT REPORT - 2022-12-01 00:00:00 ProviderGeo [facility] SCAN [facility] Plan of Care Planned Activity Planned Date Details Comments Source Future Scheduled 2024-03-04 Tobacco Cessation [facility] [facility] Test 00:00:00 Counseling and Medical Cente r Screening (12+) [code = Tobacco Cessation Counseling and Screening (12+)] Future Scheduled 2024-02-[address] [facility] Test 00:[facility] Cente r Screening (12+) [code = Tobacco Cessation Counseling and Screening (12+)] Future Scheduled 2023-12-03 Tobacco Cessation [facility] 00:00:00 [facility]ing and Medical Cente r Screening (12+) [code = Tobacco Cessation Counseling and Screening (12+)] Future Scheduled 2023-12-03 Tobacco Cessation [facility] Test 00:00:00 [facility] Medical Cente r Screening (12+) [code = Tobacco Cessation Counseling and Screening (12+)] Future Scheduled 2023-12-03 Tobacco Cessation [facility] 00:00:00 [facility]ing and Medical Cente r Screening (12+) [code = Tobacco Cessation Counseling and Screening (12+)] Future Scheduled 2023-03-31 SHINGLES VACCINES (1 Met [facility] Test 01:27:36 of 2) [code = SHINGLES VACCINES (1 of 2)] Future Scheduled 2023-03-31 65+ [facility]OCOCCAL [facility] 01:27:36 VACCINE (1 - PCV) [code = 65+ PNEUMOCOCCAL VACCINE (1 - PCV)] Future Scheduled 2023-03-31 COVID-19 VACCINE (3 - [facility] Test 01:27:36 season) [code = COVID-19 VACCINE (3 - season)] Future Scheduled 2023-03-31 INFLUENZA VACCINE (#1) [facility] Test 01:27:36 [code = INFLUENZA VACCINE (#1)] Future Scheduled 2023-03-07 SHINGLES VACCINES (1 Met [facility] Test 09:18:15 of 2) [code = SHINGLES VACCINES (1 of 2)] Future Scheduled 2023-03-07 RSV VACCINES > 60 YR Met [facility] Test 09:18:15 (1 - 1-dose 60+ series) [code = RSV VACCINES > 60 YR (1 - 1-dose 60+ series)] Future Scheduled 2023-03-07 65+ [facility]UMOCOCCAL [facility] Test 09:18:15 VACCINE (1 - PCV) [code = 65+ PNEUMOCOCCAL VACCINE (1 - PCV)] Future Scheduled 2023-03-07 COVID-19 VACCINE (3 - [facility] Test 09:18:15 season) [code = COVID-19 VACCINE (3 - season)] Future Scheduled 2023-03-07 INFLUENZA VACCINE (#1) [facility] Test 09:18:15 [code = INFLUENZA VACCINE (#1)] Future Scheduled 2023-02-09 SHINGLES VACCINES (1 Met [facility] Test 10:50:58 of 2) [code = SHINGLES VACCINES (1 of 2)] Future Scheduled 2023-02-09 65+ P[facility]UMOCOCCAL [facility] 10:50:58 VACCINE (1 - PCV) [code = 65+ PNEUMOCOCCAL VACCINE (1 - PCV)] Future Scheduled 2023-02-09 COVID-19 VACCINE (3 - [facility] Test 10:50:58 Pfizer series) [code = COVID-19 VACCINE (3 - Pfizer series)] Future Scheduled 2023-02-09 INFLUENZA VACCINE (#1) [facility] Test 10:50:58 [code = INFLUENZA VACCINE [...] Future Scheduled 2022-12-13 SHINGLES VACCINES (1 [facility] Test 17:55:03 of 2) [code = SHINGLES VACCINES (1 of 2)] Future Scheduled 2022-12-13 65+ [facility]OCO[facility] 17:55:03 VACCINE (1 - PCV) [code = 65+ PNEUMOCOCCAL VACCINE (1 - PCV)] Future Scheduled 2022-12-13 COVID-19 VACCINE (3 - [facility] Test 17:55:03 Pfizer series) [code = [...] Medical Center DEPRESSION SCREENING (12+)] Future Scheduled 2022-03-30 HEPATITIS B VACCINES [facility] Test 22:04:28 (1 of 3 - 3-dose series) [code = HEPATITIS B VACCINES (1 of 3 - 3-dose series)] Future Scheduled 2022-03-30 SHINGLES VACCINES (1 Met [facility] Test 22:04:28 of 2) [code = SHINGLES VACCINES (1 of 2)] Future Scheduled 2022-03-30 65+ P[facility]UMOCOCCAL [facility] 22:04:28 VACCINE (1 - PCV) [code = 65+ PNEUMOCOCCAL VACCINE (1 - PCV)] Future Scheduled 2022-03-30 COVID-19 VACCINE (3 - [facility] Test 22:04:28 Booster for Pfizer series) [...] [facility]00 (12+) [code = [facility] DEPRESSION SCREENING (12+)] Future Scheduled 2021-05-25 [...] 65+ YRS (1 - PCV)] Future Scheduled 1939 PNEUMOCOCCAL 65+ YRS [facility] [...] Type Clinicians Facility Department ID 2023-02-06 Outpatient [facility] [id number] SLE 06:56:15 2022-12-04 Inpatient ER SMILEY [facility] [id number] SLE 12:27:02 JOSE LUIS 2022-12-04 Inpatient ER GINA NAPOLES [facility] [id number] SLE 09:17:05 2020-05-26 Inpatient ER MICAELA [facility] [id number] SLE 12:59:00 ERIKA 2023-07-23 2023-07-23 Outpatient [facility] [id number] SLE 00:00:00 00:00:00 2023-04-15 2023-04-15 Outpatient KOLBY MILLER [facility] [id number] SLE 00:00:00 00:00:00 [facility] 2023-04-15 2023-04-15 Outpatient [facility] [id number] SLE 00:00:00 00:00:00 2023-04-01 2023-04-01 Outpatient KOLBY MILLER [facility] [id number] SLE 00:00:00 00:00:00 [facility] 2023-04-01 2023-04-01 Outpatient KOLBY MILLER [facility] [id number] SLEH 00:00:00 00:00:00 [facility] 2023-04-01 2023-04-01 Outpatient [facility] [id number] SLE 00:00:00 00:00:00 2023-03-18 2023-03-18 Outpatient KOLBY MILLER SLE SLE [id number] SLEH 09:22:00 11:08:13 [facility] 2023-03-18 2023-03-18 Outpatient EL SLE SLE [id number] SLEH 09:05:19 09:05:19 2023-03-18 2023-03-18 Outpatient KOLBY MILLER [facility] SLE [id number] SLEH 00:00:00 00:00:00 [facility] 2023-03-04 2023-03-04 Outpatient KOLBY MILLER [facility] SLE [id number] SLEH 11:40:16 23:59:00 [facility] 2023-03-04 2023-03-04 [facility] [id number] 10:45:00 23:59:00 Encounter [facility] 2023-03-04 2023-03-04 [facility] [id number] 10:00:00 13:14:39 Visit [facility] 2023-03-04 2023-03-04 Outpatient ANGELA [facility] [id number] SLE 09:53:14 13:14:39 [facility] 2023-03-04 2023-03-04 [facility] [id number] 09:30:00 09:45:00 Support [facility] 2023-03-04 2023-03-04 Outpatient SLE SLE [id number] SLEH 09:35:55 09:35:55 2023-02-19 2023-02-19 [facility] [id number] 00:00[facility]00 00:00:00 [facility] 2023-02-18 2023-02-18 Outpatient KOLBY MILLER SLE SLE [id number] SLEH 11:24:39 23:59:00 [facility] 2023-02-18 2023-02-18 [facility] [id number] 10:45:00 23:59:00 Encounter [facility] 2023-02-18 2023-02-[address] [facility] [id number] 10:00:00 14:44:23 Visit [facility] 2023-02-18 2023-02-18 Outpatient KOLBY MILLER [facility] [id number] SLE 09:55:10 14:44:23 [facility] 2023-02-18 2023-02-18 Treatment KOLBY Miller, [facility] [id number] 09:45:00 10:00:00 [facility] 2023-02-18 2023-02-18 Outpatient [facility] [id number] SLE 09:41:33 09:41:33 2023-02-11 2023-02-11 Outpatient ANGELA [facility] [id number] SLE 00:00:00 00:00:00 [facility] 2023-02-11 2023-02-11 Orders [place]-Gbenl [facility] [id number] 00:00:00 00:00:00 Only Gerson thurman [facility] 2023-02-10 2023-02-[address] [facility] [id number] 00:00:00 00:00:00 [facility] 2023-02-09 2023-02-09 [facility] [id number] 10:55:00 16:15:00 Encounter [facility] 2023-02-09 2023-02-09 Outpatient ANGELA [facility] Surgery [id number] SLE 10:50:51 16:15:00 [facility] 2023-02-09 2023-02-09 Surgery [facility], [facility] [id number] 12:00:00 12:47:00 Surgeon [facility] 2023-02-09 2023-02-09 Travel [facility] [id number] [facility] 00:[facility]00 00:00:00 [facility] 2023-02-07 2023-02-[address] [facility] [id number] 00:00:00 00:00:00 [facility] 2023-02-04 2023-02-04 [facility] [id number] 09:04:43 23:59:00 Encounter [facility] 2023-02-04 2023-02-04 Outpatient KOLBY MILLER [facility] SLE [id number] SLEH 09:04:43 23:59:00 [facility] 2023-02-04 2023-02-04 Outpatient KOLBY MILLER [facility] SLE [id number] SLEH 11:41:49 12:41:06 [facility] 2023-02-04 2023-02-04 Office [facility] [id number] 09:00:00 12:41:06 Visit [facility] 2023-02-04 2023-02-04 Treatment Angela, [facility] [id number] 08:45:00 09:00:00 [facility] 2023-02-04 2023-02-04 Outpatient SLE SLE [id number] SLEH 08:47:52 08:47:52 2023-02-04 2023-02-04 Outpatient EL SUN, [facility] SLE [id number] SLEH 00:00:00 00:00:00 [facility] 2023-02-03 2023-02-[address] [facility] [id number] 00:00:00 00:00:00 [facility] 2023-02-02 2023-02-02 Outpatient EL SLE SLE [id number] SLEH 00:00:00 00:00:00 2023-02-02 2023-02-02 Outpatient SLE SLE [id number] SLEH 00:00:00 00:00:00 2023-01-29 2023-01-[address] [facility] [id number] 00:00:00 00:00:00 Orders [facility] 2023-01-28 2023-01-28 Video - KOLBY Miller [facility] [id number] 11:20:00 12:04:12 [facility] 2023-01-28 2023-01-28 Outpatient IGNACIO GUNN SLE [id number] SLE 11:16:04 12:04:12 [facility] 2023-01-28 2023-01-28 Outpatient KOLBY GARSIA [facility] SLE [id number] SLE 00:00:00 00:00:00 [facility] 2023-01-22 2023-01-[address] [facility] [id number] 00:00:00 00:00:00 [facility] 2023-01-21 2023-01-[address] [facility] [id number] 14:00:00 15:24:50 Visit [facility] 2023-01-21 2023-01-21 Outpatient IGNACIO GUNN [facility] [id number] SLE 12:10:12 15:24:50 [facility] 2023-01-21 2023-01-[address] [facility] [id number] 08:00:00 09:00:00 Visit , [facility] 2023-01-21 2023-01-21 Outpatient EL CHOLANKERIL SLE SLE [id number] SLE 07:44:02 07:44:02 , [facility] 2023-01-19 2023-01-[address] [facility] [id number] 00:00:00 00:00:00 Board [facility] 2023-01-07 2023-01-07 Outpatient EL SLE SLE [id number] SLEH 16:31:44 16:31:44 2023-01-07 2023-01-[address] [facility] [id number] 15:40:00 16:06:16 Visit [facility] 2023-01-07 2023-01-07 Outpatient IGNACIO ANTON SLE [id number] SLE 14:45:03 16:06:16 [facility] 2023-01-07 2023-01-[address] [facility] [id number] 14:55:00 15:10:00 [facility] 2023-01-07 2023-01-[address] [facility] [id number] 13:00:00 14:21:35 Visit [facility] 2023-01-07 2023-01-07 Outpatient IGNACIO GUNN [facility] [id number] [facility] 12:34:21 14:21:35 [facility] 2023-01-05 2023-01-05 [facility] [id number] 00:00:00 00:00:00 [facility] 2022-12-17 2022-12-17 Outpatient IGNACIO GUNN [facility] [id number] SLE 00:00:00 00:00:00 [facility] 2022-12-17 2022-12-[address] [facility] [id number] 00:00:00 00:00:00 [facility] 2022-12-17 2022-12-17 [facility] [id number] 00:00:00 00:00:00 [facility] 2022-12-01 2022-12-04 Inpatient ER SMILEY, [facility] Gastro [id number] SLEH 16:08:00 18:24:00 JOSE LUIS 2022-12-01 2022-12-04 [facility] ER Alphonse Chopra [facility] [id number] [facility] 16:08:00 18:24:00 Encounter Ellen [facility] 2022-12-04 2022-12-04 Inpatient ER JAZMINE, [facility] [id number] SLE 10:08:27 00:00:00 JACKIE 2022-12-04 2022-12-[address] [facility] [id number] 00:00:00 00:00:00 Only [facility] 2022-12-02 2022-12-02 Surgery Joey, [facility] [id number] 14:33:00 15:59:00 [facility] 2022-12-02 2022-12-02 Anesthesia Jorge, [facility] [id number] 13:36:00 15:19:00 Event [facility] 2022-12-02 2022-12-02 Outpatient ER JOEY [facility] [id number] [facility] 15:00:02 15:00:02 [facility] 2022-12-01 2022-12-01 Travel [facility] [id number] [facility] 00:[facility]:00 00:00:00 [facility] 2020-07-13 2020-07-13 Outpatient [facility] [id number] [place] 00:00:00 00:00:[address] 2020-06-22 2020-06-22 Outpatient [facility] [id number] [place] 00:00:00 00:00:[address] 2019-05-31 2019-06-02 Inpatient [facility] [id number] [place] 00:00:00 00:00:00 GINA Yee [facility] Results Test Description Test Time Test Comments Results Result Comments Source CBC W/PLT COUNT & AUTO DIFFERENTIAL 2023-03-18 10:08:48 Test Item Value Reference Range Interpretation Comme nts WHITE BLOOD CELL COUNT (BEAKER) (test code = 775) 8.7 K/ L 3.5- 10.5 RED BLOOD CELL COUNT (BEAKER) (test code = 761) 3.19 M/ L HEMOGLOBIN (BEAKER) (test code = 410) 10.9 GM/DL 13.7-17.5 L HEMATOCRIT (BEAKER) (test code = 411) 33.3 % 40.1-51.0 L MEAN CORPUSCULAR VOLUME (BEAKER) (test code = 753) 104 fL 79- 92 H MEAN CORPUSCULAR HEMOGLOBIN (BEAKER) (test code = 751) 34.2 pg 25.7-32.2 H MEAN CORPUSCULAR HEMOGLOBIN CONC (BEAKER) (test code = 752) 32.7 GM/DL 32.3-36.5 RED CELL DISTRIBUTION WIDTH (BEAKER) (test code = 412) 15.9 % 11.6-14.4 H PLATELET COUNT (BEAKER) (test code = 756) 272 K/CU MM 150-450 MEAN PLATELET VOLUME (BEAKER) (test code = 754) 9.7 fL 9.4-12 .4 NEUTROPHILS RELATIVE PERCENT (BEAKER) (test code = 429) 74 % LYMPHOCYTES RELATIVE PERCENT (BEAKER) (test code = 430) 13 % MONOCYTES RELATIVE PERCENT (BEAKER) (test code = 431) 9 % EOSINOPHILS RELATIVE PERCENT (BEAKER) (test code = 432) 1 % BASOPHILS RELATIVE PERCENT (BEAKER) (test code = 437) 0 % NEUTROPHILS ABSOLUTE COUNT (BEAKER) (test code = 670) 6.44 K/ L 1.78-5.38 H LYMPHOCYTES ABSOLUTE COUNT (BEAKER) (test code = 414) 1.16 K/ L 1.32-3.57 L MONOCYTES ABSOLUTE COUNT (BEAKER) (test code = 415) 0.76 K/ L 0. 30-0.82 EOSINOPHILS ABSOLUTE COUNT (BEAKER) (test code = 416) 0.12 K/ L 0.04-0.54 BASOPHILS ABSOLUTE COUNT (BEAKER) (test code = 417) 0.03 K/ L 0. 01-0.08 IMMATURE GRANULOCYTES-RELATIVE PERCENT (BEAKER) (test code 2.00 % 0.00-1.00 H = 2801) COMPREHENSIVE METABOLIC [id number] 09:59:42 Test Item Value Reference Range Interpretation Comments TOTAL PROTEIN 6.3 gm/dL 6.0-8.3 (BEAKER) (test code = 770) ALBUMIN (BEAKER) 3.5 g/dL 3.5-5.0 (test code = 1145) ALKALINE 253 U/L 40-150 H PHOSPHATASE (BEAKER) (test code = 346) BILIRUBIN TOTAL 0.8 mg/dL 0.2-1.2 (BEAKER) (test code = 377) SODIUM (BEAKER) 143 meq/L 136-145 (test code = 381) POTASSIUM (BEAKER) 3.1 meq/L 3.5-5.1 L (test code = 379) CHLORIDE (BEAKER) 102 meq/L 98-107 (test code = 382) CO2 (BEAKER) (test 35 meq/L 22-29 H code = 355) BLOOD UREA 19 mg/dL 7-21 NITROGEN (BEAKER) (test code = 354) CREATININE 1.30 mg/dL 0.57-1.25 H (BEAKER) (test code = 358) GLUCOSE RANDOM 143 mg/dL 70-105 H (BEAKER) (test code = 652) CALCIUM (BEAKER) 7.9 mg/dL 8.4-10.2 L (test code = 697) AST (SGOT) 74 U/L 5-34 H (BEAKER) (test code = 353) ALT (SGPT) 46 U/L 6-55 (BEAKER) (test code = 347) [...] not appl icable for dialysis patien ts [id number] 09:59:07 Test Item Value Reference Range Interpretation Comments MAGNESIUM (BEAKER) (test code = 1.7 mg/dL 1.6-2.6 627) COMPREHENSIVE METABOLIC [id number] 10:41:02 Test Item Value Reference Range Interpretation Comments TOTAL PROTEIN 6.0 gm/dL 6.0-8.3 (BEAKER) (test code = 770) ALBUMIN (BEAKER) 3.4 g/dL 3.5-5.0 L (test code = 1145) ALKALINE 285 U/L 40-150 H PHOSPHATASE (BEAKER) (test code = 346) BILIRUBIN TOTAL 0.6 mg/dL 0.2-1.2 (BEAKER) (test code = 377) SODIUM (BEAKER) 142 meq/L 136-145 (test code = 381) POTASSIUM (BEAKER) 3.7 meq/L 3.5-5.1 (test code = 379) CHLORIDE (BEAKER) 107 meq/L 98-107 (test code = 382) CO2 (BEAKER) (test 29 meq/L 22-29 code = 355) BLOOD UREA 9 mg/dL 7-21 NITROGEN (BEAKER) (test code = 354) CREATININE 1.06 mg/dL 0.57-1.25 (BEAKER) (test code = 358) GLUCOSE RANDOM 114 mg/dL 70-105 H (BEAKER) (test code = 652) CALCIUM (BEAKER) 8.4 mg/dL 8.4-10.2 (test code = 697) AST (SGOT) 43 U/L 5-34 H (BEAKER) (test code = 353) ALT (SGPT) 41 U/L 6-55 (BEAKER) (test code = 347) EGFR (BEAKER) 68 Interpretatio n of eGFR (test code = [...] not appl icable for dialysis patien ts [id number] 10:40:16 Test Item Value Reference Range Interpretation Comments MAGNESIUM (BEAKER) (test code = 1.8 mg/dL 1.6-2.6 627) CBC W/PLT COUNT & AUTO [id number] 10:31:17 Test Item Value Reference Range Interpretation [...] (BEAKER) (test code = 2801) HEPATITIS B [id number] 14:49:06 Test Item Value Reference Range Interpretation Comments HEPATITIS B CORE TOTAL ANTIBODY Nonreactive Nonreactive (BEAKER) (test code = 497) HEPATITIS B SURFACE ANTIBODY < mIU/mL <8.0 (BEAKER) (test code = 647) HEPATITIS B SURFACE ANTIGEN (2) Nonreactive Nonreactive (BEAKER) (test code = 2585) Steel Manager ID - ADMINHEPATITIS C [id number] 14:47:41 Test Item Value Reference Range Interpretation Comments HEPATITIS C ANTIBODY (BEAKER) Nonreactive Nonreactive (test code = 367) Steel Manager ID - [id number] 12:25:59 Test Item Value Reference Range Interpretation Comments MAGNESIUM (BEAKER) (test code = 1.7 mg/dL 1.6-2.6 627) COMPREHENSIVE METABOLIC [id number] 10:32:02 Test Item Value Reference Range Interpretation [...] patien ts CBC W/PLT COUNT & AUTO [id number] 10:16:06 Test Item Value Reference Range Interpretation [...] PERCENT (BEAKER) (test code = 2801) Tissue [id number] 14:43:25 Test Item Value Reference Range Interpretation Comments Case Report (test code Surgical Pathology = 104) Report Case: [id number] Authorizing Provider: Konstantin Morataya, Collected: 12/02/2022 02:22 PM Ordering Location: [address] Received: 12/03/2022 12:07 PM Service Pathologist: Ivonne Guerrero MD Specimen: Pancreas, Head, Head of Pancreas Mass BX via FNB DIAGNOSIS (test code = [id number] 3220) osglMlURYamOLeL7Rzmjbm CRxrOZ6wLQ1rnFvdhYGypP NlEPSfZbEcx0mjx008xHWz u0krEMDImjxesXm4nWbzE6 3wm1D9WygpZ8xvZSEiHOVm R6TwHH3bNKZroVPlY4pzYT QwXGdyZWVuMFxibHVlMDt9 XHBhcGVydzEyMjQwXHBhcG EliCA0TFRjZO6uggtwSWth YBbzQTNbfmZ4XYMeyJUvW3 CzVJNaWI9lhnwbIJJ7SDhm DCQvZZV3DkSrJSFhe7Bzzl g5AhDowCRaAHcljYQlktvx czIwXGNmMSBUSEUgRElBR0 3DU6vCINzQNrYAFWNAAYFY HB2OMTWsKfPQFTWOKZMQWW EAK7TQJOJEXrFEJYJOX1FK WgQGYz2VNQBEPeRGKeWDR5 bEPCRNFLMVV0DBIkFXQj0X HOutQu4AWF7NHA4HLJINT9 TDO4BQY15rNABgXLVCCSeB CINERHKDCC5NVpwiM61BUw FIMD2OQMVQNiRvLAZMOGPJ H04DZLAYBJeYSENJKXIQBw RZVb9ASPdFFmUXFzCZXKYT TkNSRUFUSUMgTUFTUyBCWS VPSMKLOA2ZDjewTTFgG6Qx TKTtorXZTcNIOM4TQjRKHQ lDIEhFQUQgTUFTUywgVVMt N2VLZMEEHN3OUEULKNOKJ7 FTHOORK7UEUClijIRgJJCa unIkOSSsReBCpwLfe1v8YK GvZCIhv2SdrhAqyw3zVUuc q4WsBJCdzM6gudKjuKKuYA RrGZhoAUCzTmYoSfd5GTTu wQJgLUBcZvn0POSrlUYhJS RUdAkwvG3aTATjaFrphQ8u bYY2PVUkfnFxdWJKiL9pKN TJgO0iVcI7DDUmMkr4DUNn NzFccGFyfQ== COMMENT (test code = z6sxtEHvNCBvaBOsANHnK0 9459) a9qQBix5K6wtwsRE4yuBvr yRh8jMlkARAlhrG5hSFoEW rpw1ofURQ9r7uaqccxRROk NCfzUx8qqMJypPxhJoEwFD OwUIb4eD11REEcmM7whLZr IDtccmVkMFxncmVlbjBcYm y2LSV2iAdzGBCyvnpuViR9 HXmrOPGspuilZXl3ZUcfHI ZbmWX4FPWmdEIkZ0EpMWIp LB9jbxf1XIJ0NJvaOLKyCn B2MFWpoCVpDTJljFjkYQgd m303XRO6LcDaQZMdgdCxdU mxwK7kQfNzLNqsUjCrPQdg YNVhoyRfFZJ9eKJvZipdpK B9SBOud6iwBRXsFIGneRii NM00aKmwNjVpB04pzjBqPN 9cSOEqbammyzIuNS0wagSj kPwjFSIbprBdX3g9wGKmx8 i9hWDzEB3bHVHocATcfFFq JRCpHtYkv6dfYIItSRMlyA QbzevqBTgmHuznxO3qeP5l eSBpbmZpbHRyYXRlLlx+XH BhclxwYXIgVmVyeSBmZXcg PVV4oVbvSRydL7tzwxWbFI FyZSBzZWVuIGVtYmVkZGVk DFoyDMKtCUFdqRGpa3LgTZ K9fa2sWKIjwlMdj2XaCDSu c20asPOofT0iiTDxBQF7zG kkBKneU6UroKYqMDXdjrVV uSLyPrlqSFgdR6DjRLZgEM Awv49epWB3ZM70NSwjlLyy CO3iuO9fmTj8ttH6iL4iVD B3C1AmeYYnXWZdc1CbzfYk sp4cDJ1sdVTuRVDrkzJLYt shy6QjGOO1yUHnzYLmLXky yB62LPGltsB2jCTnnJWjr9 XrUIbco7Owe14ntJGaI0Us b7onLsojiCmszuCfc9XpGY 0iiuQvyePrwLD1zS4ryD1n nDJsZC7jyFAfNIGtPKzfDX Nvs2WghFZseeYyqxElUIO2 YXRlIGZvciBhbmNpbGxhcn xqj2B3WSgjtb3mdDJifV== CPT Code(s) (test code o5wnmMRwDWPujJRbTSFfU1 = 3357) wsawNtMUGsbWIbK0Piyozd OTpxTZ8tER2ohKxuwJNngV EpXKAgJxYet2noc325lBUs y7axFIPFVUfdTVBPTTm8t3 hxKDZZxvxuwXk7fGwoC67j z0N0NdgrA34snKFnOKT8DS WdUIWkpSGvUOBlSOO9JHOi zNElH2heOCDnVU8xcxtyHC dpOOqqWYKwqCN8TWBiqIMn Y4OnCYLsCHpzNNEhkry9Uv XsZx7lvHBbxLneBFrrTYAs XHBsYWluXGYxXGZzMjAgOD gzMDcsODgzNDJccGFyfQ== CLINICAL HISTORY (test f4pegITjQJIivPQcRBWqO4 code = 3356) ztdtBzCIIuxGHkP6Vukbae VXtoAY3nGI4ttVxkiVRpmC LtJLKvJkLsa5yvx720lSZt y9khOVDEryqocIp3dTkmG7 6oz5V4YfllB87oqKJfZZV3 OUBfGQDlqKUiQJUfUBY5XO MotJPjQ9tmVVNdYX9ssiec MIqgZSxiWNKbvRK3RQUflK KwC7WnTDWrNTfwRVRentn5 ErYvCm8ahHHsiHibEYvaLH JkXHBsYWluXGZzMjAgUGFu P4ExGPWtTyIwXTWuYJXrsc 0= GROSS DESCRIPTION (test c7nhsZKnFMTflZNSZQCvUL code = [id number]) UjVI7tyWwipEu1bGxaPFHp mlA1qEDhPLcus0liRYN1a1 mhxaJDQyhwLASmFH4qIVau TQYnOI5qUyFfTSMaOwSlGK BhcGVydzEyMjQwXHBhcGVy aIO1FZQoWT4zckfoDDuvCK xrWVEtqcW1OFKtrMFmV6Dl DYJwTF1jtgqmXZD2UPOPGz snNs7qlQQcvEkiXvJsWmUe YXJzZXQwXGZuaWwgQXJpYW g7sK2GBkdjP45wo3A7Wyh6 RWIyTTTcV4ZiBW0uCZTfbY HxY71VIburDWJ3AVLPAqbk LgljbWxyo6UslZAzZDZcZF xcaWQgNTEwMDAgXFxkYiBP GiIuDfCsDAClHmX9QKZwKU m2XVulJpLJJTN4NSYnNgPd XLx5KQfnRHwobMAnMTScMZ TiLSGgREjpjlM6l9aeYWZa tSCiDGV7RPtkh6yfOEgsEL Y1WCGcSnUcYRIrXK0FXiDm DPYjFBNgLea7TrV0ZGy5JD UXAfOtOuPtUzHdPRO5HoWh YEj4AHx3KFuPLrE6PvD9Kh QdQtFgRXL5YqZnXZd3HIIf XFxzcyAzIFxcZmwgXFxuY3 1ccGFyZCANClxwbGFpblxm czIyIEEuIFBhbmNyZWFzLC BIZWFkXHBhciANClxwYXJk CE4TRCMbNDjrJZJgBhKjfY SuK1vsPEBxW39oy6HOe2Ym DL2YNBl4muMoofqvtR4yXX JngxKsVVxrR6KpIITiFpMb DuJmREh4FROvjQ1fSu7zoL KvrD1krGZeQFyjBLM4rSXe MRYqWDWyFRCiHW86ICtRAH MgbmFtZSwgbWVkaWNhbCBy ZWNvcmQgbnVtYmVyIGFuZC WdwZpdUfKqMAw2P0ZytjHx ZWFzIGhlYWQiIGlzIGEgMS 11ZZduXZ0xMJwhHX5lRCNa KHLhL8OsD6H8EVEuBfN8NF 5qoaJwCEXyYvRghRyte1Ek QIVearAuKZI7aQbriLFxdf Uqu5XucZd0uEVpWAhdSUWe jY8qrE3aZKQayAwjKYKoIJ w5GeYyQjuvKLQrTFapeNKz YZ6BIUElLhOnTTDfU2ksMR EdIC8HWFNyUQjmitLyMUpg qUK2smUORH9izq1RWRMgaR ITADJ6CD2qCQrcNFIcC7Ce D0XvlcT4v9pwrVooc2GnsQ KaKG0ckISvEK6CHLNrzgAt DQp9 SPECIAL STUDIES (test n7perFJtMLQsi1rzHMMzgL code = 3377) FuZzEwMzNcZnRuYmpcdWMx QEjxmaSwAOnjm3NuC8WnDk AwMFxhbnNpXGRlZmxhbmcx IDIhTUB1mmGpBVFnWOnvAB XeLDziNv4hxYUybYhcHfJq YRWxh7vgmlBLecnvmKe8m5 svIZCxDrH7vLGxUBdsB2ny xhBtlLNqQ5WkeMMqfQu0m9 jxZfQzHxC7tVSoTKudD6gi kpEpbHYcOUOrKQp5gW14WF QinP0xlTKnFZhxedEuFxJ3 FVunOHPiLbJ2KKQokSGpII WxE9khEWRdFDqbEMMnREhy fMUsIJV5fQpmc0F9gJBnkM JwwWdkHnBfZkTqUoPKq8Ql VAl5lAuxR5MzNJBnHeM5bV QgUGFyYWdyYXBoIEZvbnQ7 eGdahiUoq19xzDUzRGSbAV BzFkAozWroMYXkCEIUs5Sy gVhjTSM3rEj2bHsnHutrNU V7Fmf3EZ6qap92wyb1xAzq XMDviycvYuC4JMftMYTknc mhNUi7ATmqIZEirYU1IRKe sPUmC9WxHWMhSP8xvtg1BT I0QStfTCNhWwL9MPVvmDHq FDDkfYvtSBsuh018SJG8Xi FiOE6sI7Zbh2E8iA8wzISf LHPyfWEiYlOfRQVapk6akV XzROkbs9UcZDI6owR1bFDd zVXlYILuII18Apkgi2WnIx gpd8OwR37rwYT7QFftq2ir MO8iCzJ6xoAvMLdnz0lqfR 3yCoN7CPprJF5nDB9hTOJt rC0yipqeUALcNzGqvojtFL ExgPbkgjWiQb1azXtxBTK1 ABeuD4yldX5pOnZ6MFmoO2 hlxY5jADi2HHjyeBL9ICGh rM3hJD4itqmch6agBMiwQA lfGUPcpxG8ecO1LGJygYSh N4RlgQ7tROPpWH0vlrvmz1 nwAWJ7UIttCUGfPVN6IwEa NGYcm6Nppif3PaYhm0SixO ByMXrzP61zb992NMMehiWu N0tyaGHgrfpseIWuyoxoUO lmqnP9NCAuBTFkSVehSKJh XGZzMjJcbGFuZzEwMzNcaG ljaFxmMVxkYmNoXGYxXGxv K7toHcYaX2UkCRQxQeOsWD wxEHtevTRnhUUamUS3qM0h OO3bBZZrcNLlR8HeGJAfuk GygTWiYKQ1gEKroWDbWV5d HFekuCYal3ilz6GyY8ahsZ sgvHK5NW1cHXYoEKBtIJiq f9CdwA6wFpmqoOAqycbkXH xmczIyXGxhbmcxMDMzXGhp J4zjQvHlQRByaHnoOQydo1 NoXGYxXGNmMlxmczIyXGx0 cmNoXHBhclxwYXJccGxhaW 8xMvJhQyLaHvxeYL4cDANq X8vfbTXhBCMbNPMrY6ecHh JohP3fbOqsAFmfBdTaCuBy EiCOs609zw2tNOEdbYQnpz UEpWHlxS5jLUapXStqNUlh iSAxDRzyj6gaBQBhs0e4pO KfDLNisuGqv7qlIQdowrVd FQTfzZLhwMApWJGje79aKV hgcCjyqGusFRKvw0QfyUwg w3HwWoLvCOqbv7OuD22rbN JvbCBzbGlkZXMgcnVuIGFs p02nx4xsRJGdYaO9pFFykQ S3yAElpCVbk5UtlPvvWLOr p3hkWCVrbh5zeurpfZNfu4 QilR1csigdVEczzQFhhtSk RATwi5t1mEOoUADsGYLjOI etpIo7MVTlz783yn4jgkL1 dWGnYXN7CAsxPPZaJZByyx UgZXZhbHVhdGVkXHBsYWlu XGYxXGZzMjJcbGFuZzEwMz NcaGljaFxmMVxkYmNoXGYx YTyaE5gwFsNtQ9IjAMXtKu GshZGbU5xlcQEwUPCiOHcw XGYxXGZzMjJcbGFuZzEwMz NcaGljaFxmMVxkYmNoXGYx BHzuL3juGkAeQ0LwISQjVn IgIFxwbGFpblxmMVxmczIy NSqpyukpTFAkXXegJ6ixNr LzVKKeqSwpNUrbl3CpEVOu LSLxPtssbcUfZRi2qqGgVX BhclxwbGFpblxmMVxmczIy ULddcfhcAEVsURjhO4ccFq HuYEIbqHiiLTpfu7OuFCSw XGNmMlxmczIyIEltbXVub2 dze1WfH9xkpEyxkSA6SAOp Z7bsdTUkcDO4LQZ7qB7aBI fgkfCzVQVic4GmAFShZASa NqE8mE9tHTY8NhDKoOnsZB BsYWluXGYxXGZzMjJcbGFu ZzEwMzNcaGljaFxmMVxkYm TmTPScHCodR6qmJqIiF2Sx NUJzVkTnuIbpULdnTUx7Hr xwbGFpblxmMVxmczIyXGxh iryvPOZkJOkhJ7ejUnFjSC TjgUncYJuff3BwCTVwUOTb MlxmczIyIHMgTWVkaWNhbC FVEX37NYNiQXEgqCabrW8e qWFFRGQkhaJ2v4L0NGimBQ HxXKh3GEkgdzZzZUOwjI2q JXXeDB0qMQs6paWhJZWty9 FkMO0iKGBbwKZvJFW6YXFi z3WbS6Lba0HpFQMfIHOpry 5ykjUvWrGAtRRsQSXslj57 JOJaRL1lJ9uuRSLgTXMyze FsbTZjt8AmJAMvpTN8lMId VM6ZLpQGw43rZWBbWFSMpr BuXEPbcYxrtLM1blT7fJ2h LiBUaGUgRkRBIGhhcyBkZX Ulrl4rtkFuVEGhPYSuy9Jm lJJgeIIntuEkD0Pmc6WoLS Hagv79EKcjaACpux10TC4l V3Ngi0CleD9nTHfqHYDnu9 NsxSZcnHOmQDTab9UoL4ox mzgrZPyaiTWthM0hQLRkUP s7KMWsn3WaNXKtw2KqYoZr qfMiSRNiSEKnVRIsuB68EW K6pElouVedmuQtYZ3jJJQq vpUjCDGpPXBhmB5yDUirbo CsVZZjesW7c5L1EZphPRGb obZzIllfRHP8jaInrtU8zV OcK7azdruzJYqqCCJkm1Lo nX0vuNLZkBCvp5KwyLMggG NLfHEsRU6jcoPeRC5vLIS5 ODggKENMSUEtODgpIGFzIH T5HYnkHpwsESW0eyOiIGAq k4NoOEylE7adA36apDkfbP h6uVKprCublZGrmBXjYPEr zeU9g8I6WQHjm2QouctiCA BsYWluXGYyXGZzMjJcbGFu ZzEwMzNcaGljaFxmMlxkYm HoCIQiSFwpG9rgZmVjOeAe NryrVIN2vH== [facility] [id number] 14:43:25 Test Item Value Reference Range Interpretation Comments Case Report (test code Surgical Pathology = 104) Report Case: [id number] Authorizing Provider: Konstantin Morataya, Collected: 12/02/2022 02:22 PM Ordering Location: [address] Received: 12/03/2022 12:07 PM Service Pathologist: Ivonne Guerrero MD Specimen: Pancreas, Head, Head of Pancreas Mass BX via FNB DIAGNOSIS (test code = h8clkINrBRXwwZSjZPYwR3 3220) jmfaXnJRCmuKWjT6Cwhyww CCvhUQ1pFV2vqUnoyAKmqB QsEMWyNcZui2rwi203hVDx p0pxOSTDosernQy2kBpaS4 1xq4J1RjihL4pwTUMbTSEy I4LfGG7sLNTylVVjD2egNV QwXGdyZWVuMFxibHVlMDt9 XHBhcGVydzEyMjQwXHBhcG EzyUW9TCZwNM9cpdhdZRzi SPfuJNRcxaZ0VVYdiVQaK7 IxMOHnFC2imznjAST2DReh GDGeOPI5DsMiGCDrg7Ucwq d2VbOsmYIjLDvaeVYsvlfj czIwXGNmMSBUSEUgRElBR0 2VZ3tGMPoBOrVTDWGPNGDM QJ2CXPElPoFTHQKPHTOICH IYP1XWFULSOwKICXWPY6WB NyEEQc5HZGKECgRXEcVAZ1 qWVHIPUSDFR3BVYyQIMm0A WUvyVk0UDD5HRW1JUBNYX0 GFN0GFQ32hPGWfVVUMLPwY HCEESXCXMM7YEygqQ17HTx ZGNS1CKJAORpQsNEXRMCDV Q93DUEZQVIcLTIKEUIYIGx TBEt8NBSbJFhCBYmQMSUKS TkNSRUFUSUMgTUFTUyBCWS ULHNXUSW0DAkotHRXpR6Qg AGQsgxVIAaFFSM7WXvQJEQ lDIEhFQUQgTUFTUywgVVMt V2LIBVRJBJ0OUVZXXLFAE7 CYSDSEU1KFXBwseMUuMOGr gnCqPQSyYyBQkhKhx6x0FX IiORZyb0NgslSvkb4jDZgw q5NsZLShqH5dhwTwuAEtVX DkVAfiDZZjVyQcNvk0FENa wALgZDOhMgt0PXEfyBCxBC OYsLbytS1gLZIbyOzulZ9f eKU8AGGahmCbpDRUbY4nRW VBvV0mTnQ3DVJtPda2VXSn NzFccGFyfQ== COMMENT (test code = l9zmyFJaRBQauCKzZQEtS8 2516) p0iJBml4T9rnkqII6odGxl tSs3tHoxYOOsfxV4jWRvEU idt4cnXSR8l0izoatpCVLo HIewBj1nbCFcyOuoHmVmKC ZeFFp0wI77PWCsuF2zrKGb IDtccmVkMFxncmVlbjBcYm i7JJN6sFtpTZRhddpzNfK5 UNoqTFDhevchYWe0FLvkRL KbiBQ9BMNjjWQjB3UoYCWx ZZ0wzpk7NPX2OGjfDVVkCw Q6FRIwgILhKLKzmRvpJEvb b544VJU6StJnMJHgtjLfmS zfiK2tGxEcYNkqOpFhSFhk JTLthlTdSRA1jKVuXuylbW W6OPCkg4dcGCEbMCBvzFmq PK41pAcyTaSkT03erpPrEY 6dIYVjikngheQfKJ6mokHp rOegEGPpszHrU0r6bCXtb3 c3xKZqSS4uMVEuhWJjzROu TNTvStCxi1rdDYBvOTQmtA NjfhnxMScfXwmgxY2haF1u eSBpbmZpbHRyYXRlLlx+XH BhclxwYXIgVmVyeSBmZXcg ELR9pZclNIzsG4bxafPqJA FyZSBzZWVuIGVtYmVkZGVk BNbpXUPgLFFcoAStm0GeSR A9nx4sINHsqhWhc6ZmNVGr x45cdOPdaM6ygPBlJUG6hR onIArhJ8PqnAPjELZaynQQ eJQeWetcPLnhJ7OfUYEtLC Ksq83qnAG8CX67SJixsOlr BU1eyB4ccWl4swI1aS6wFZ T1G0UilKXlHNHxw8RdbaTn po2uQE9yfTRbWCZpgoOWHt sfk4WhVAK7aQKvzXLhTSne wY92MNJyxuO4nICiyOCuw0 MlIUexh6Pjs60tpRBmA8Ka e4ksYzwxhNmtblNgt7XmMR 9ojzJbjpKucZC6jQ1dcL5d zUIzXI6jgCZjGUWoVFuhDM Ygp9XjtIBzjzMcdeSyYWT7 YXRlIGZvciBhbmNpbGxhcn mvj2N8GKawkz4ilXMduH== CPT Code(s) (test code b3rlaIFpNWSrqTUqUDOwJ0 = 3357) mgutWgKMVyhWRwD3Ckskip KCvmVT1eTC2urHktaPEekA GlDDYyEoCwd2rrf205zNYk g4bmDCRIVKasNGQIAJq3s4 hkHTKQicyslRc5vCgaD44r b2N1MmbqA19uzFMkGLX2YO SnIFOgnWYgAVSnJLK1DDPf zYLdO9vgOVOjWG2eastxUA qtMJtcIVXwsWV1CLKihOKn V8ZjZONpADavNRIlatd5Gu WnUl7lhYWelAxvDIxuQSDd XHBsYWluXGYxXGZzMjAgOD gzMDcsODgzNDJccGFyfQ== CLINICAL HISTORY (test d9xzzTElFFVkaJRgBSPdE8 code = 3356) erejWkGCHyyCKwK6Uywdtj ZVhtJW8oRU3tzLtjxMVvcD FnEULdTvFwe3vsd032hXPm q7mbUZSPnzzazJd6mLgjU4 2hm4L5YcwcW19hrOUbQMT3 DGTjNFTxjJWwPAHoUST4TG WvnWGyZ7auOSMoCX2zpcfy KPsrJXygFHBqsOP8XWCloZ IgM6LaAHCuKKwgFJOvurh6 JqAjIf8krANphStwQVgsCE JkXHBsYWluXGZzMjAgUGFu P2IwBPXnVcVdYRTnJZKsgq 0= GROSS DESCRIPTION (test a3uanSJaJFRheRRPZPIuFY code = [id number]) QlIJ4ciMlzpUt5zAdpYHVt zqL2yNThCJjrj3yeNYX5f5 gzduCHBjteRIJaIU8fKKpb TNSwFZ6tTjNeBGGqAeQuST BhcGVydzEyMjQwXHBhcGVy iTL2MMOoCB4hrnmaYVkqVV yzZMNgweC8THLmlSGiC8Fz XUMjQB2tyzpdQJN9KSBJGc smYq8rgCQxgSdrBjTgTaTp YXJzZXQwXGZuaWwgQXJpYW b0bE2XLmcgW16xf3I8Ioc8 YYObUGQdF4YxWE1pLFIxuB GwB90HEakjLMU3CHPTHrhr XtmumWqlm1UnhFKkRQDmUG xcaWQgNTEwMDAgXFxkYiBP McMuSpPsEMIxBoQ8RPEsFG w2AEcxFeIPKUT1IWBeMbOq IPy5JTsgEMyfwSXfUWYoVR PsAZAcZAuipwH1f4uyQAEy dSAjXHD3HVkid9unNLhbQQ Z5GGPmDsRkVSTxUF2KUdRy JSHmZSNbJcu5LdX8AUp1KI LSQjMuLqLyXwXdJTW7HkCc WBm4EXr0JMxKNoR2LpB5Zd UwTeXkFBC2NqGePCp9SDDn XFxzcyAzIFxcZmwgXFxuY3 1ccGFyZCANClxwbGFpblxm czIyIEEuIFBhbmNyZWFzLC BIZWFkXHBhciANClxwYXJk HS5OBTFeADbbHTUaXyKqdW QhS9mqDEEbD24mx4MFe1Qm KM1PHSl1nmAzaihjcY1kIB EevsFsBTonV4YuYMSiEzHv NrJcEPm7EYFudI3zLp2exP YxrZ0xwWJjGPnmVKK4dVYy MICtKOSoCFRpEK49AAgFTO MgbmFtZSwgbWVkaWNhbCBy ZWNvcmQgbnVtYmVyIGFuZC AgnNseTtCnWAt1M4AixwWd ZWFzIGhlYWQiIGlzIGEgMS 21UVnsCK3lCJfyAC3xNADo ODQsL7KfL4R2AXJhBdL5FA 2xllQkIJPuIvUwgIeud5Pz QFXzurBnRJP3tUazcTGpkz Jcn4AemXp6iRXoBTvhCYGp sC2fkW7wZCKkpSqeYENaWX m9YhKoXyeyHDNeLUeoySHw UQ9JFOFjVgIaFJIhP0adWQ AqYQ8CSOBbEIpdvnXhNXni dAS2uaOTPT7iit6BCMXxzS YDKYT8MI9kLYhuTSBnS5Di W5SnblS1f0supSvtd3PiaO EkQV0amXEuIV2CQXRgywQi DQp9 SPECIAL STUDIES (test h3lueHTnLXJzv3apRPVrrV code = 3372) FuZzEwMzNcZnRuYmpcdWMx BCdefxPnOMxec0QjP8ShMk AwMFxhbnNpXGRlZmxhbmcx JUQvJOA6idWtAJDoOUjcKB CeVGutGh3acNVnqIlrGmQl SAAyy8qearFVkcadtIk4r1 hqYOJxSyP5ySNbOPjnI4yz jdQqxNYdP1MhxJIzsUi4p2 ppOuPjNiN8iBYrETmdR7jc plOeoOCqFNSxSUu3oI78PP GjfC3kmOLcQYacyzTdFvV6 BFanRTWcOjY5JYEoxCHrKW GlO7djXHWiIIjsWSNfLSnk tBSbZMA0mKqbe0R9jGVhoS RlsZakLqXkBlTtZoGDv0Eb XXg1dRpxN1AzGIZkXdO1kZ QgUGFyYWdyYXBoIEZvbnQ7 jRfdweWhh87fsTGtMHZmDC AjXwMklJlaWABdHMXMk8Sq jDonLGU2gCy5yJhtTjudIP E1Lgi3IO0qwi78tzf0aPmh ZJXrgdvmSvT9FColOBFjkj gvNZn6NMgrNKIweDE9MQJd lCRkG7IgTAGsGW8xhuu0HD G8IGzmYHAlRwG8DUCqhXXb QGIfiHpbATyqa571KVX8Lj AwHQ5yK3Imy1A4kF4bnMNx HQMsoKSlLfEeHVYwfa5odV LzFYkwt2EbYWY1glA6jMHn xMAlQMPpRK30Lbxev7XkGr ras7MtS59nfPY1SIhtv6et ZB5vEpX0nhLbRAibg0fevX 6iWzU5VJbrXZ1vEP5kLBLi cU2ktdbbVNPkMtSotufiAE RawAimnwMbGn0pxEdxGCA4 UAikD3sgdD1qQwW3ENdmK3 blbD1iILb8JUqiwHH2OSYp kE2pXU8otqzmn3juQGmjLV sjGEDpnjT8hqM9VSMbgYYb R3FbxD9qJBLkVK9umrmur4 vrSBP2NZkcPNJhHCQ5ZaPw LNIqm8Qlrvo9LcUej0XsuQ PlVMtkK50ih940NXLfyiCx Q2wcdSShuubatTKktkqzKU yyaqE3TBCsBBAcITzdTQUf XGZzMjJcbGFuZzEwMzNcaG ljaFxmMVxkYmNoXGYxXGxv X3pzThJeB0JxPWQkQePtCZ tnHSvmuTVftHWlyWG0pO4v OE9dVOMbrGAzF9LaYBPhto OdiSQaEHF2qJQahHMnEN5a BXxihHXyf0cll6AiW5kanF zfeMX6AI0iBCIyFGWjKFru z3CtwK8hYwwbfLTpknyhEL xmczIyXGxhbmcxMDMzXGhp R1jsZwCiFGSdyUjgTEvns1 NoXGYxXGNmMlxmczIyXGx0 cmNoXHBhclxwYXJccGxhaW 3xTfOgRvKoRstiLO0yDOUv L1ldgCGnVUGbJAZiQ1prIp VdlE2kxKosPIodEfDdMmPu VaQIm450zw9pAWGkwQJpbk HLrIZelF7lACxaBIitGYmm kJXtIOuwo5ciBRTki2y2xH SpHDUhbxGtv0qhMAcqpvTl QDRmsQBvxZOpVGOfe89jWB tklUlgbGhbQCYla8WvoIsy v9KuZpXqTXzyr0CjF70joO JvbCBzbGlkZXMgcnVuIGFs u41xq2jaFUOrCtN5hHPtwW A3uIRyuLTpe3VylEgpNVZa z8gpLWUttp5hmuolbJAwt3 LciA5qabosQOfakWGqztIe ALCtc6n0eFMjMQHmUOHfSQ foiDm4HQGbi218yx2xyoG4 aNSlDPK2OGznWOFpMZRryz UgZXZhbHVhdGVkXHBsYWlu XGYxXGZzMjJcbGFuZzEwMz NcaGljaFxmMVxkYmNoXGYx PEwyV4rlZxYtR1CaVUQuPg VmvDDmT8zeyDBoLJTaUWue XGYxXGZzMjJcbGFuZzEwMz NcaGljaFxmMVxkYmNoXGYx ODlmA4dxCoFdJ4MhCBCaKo IgIFxwbGFpblxmMVxmczIy GFronvswBXIpNRyvE9jlWc RmCIYvkFpdWCqdn2NdWKUz YUXeZzjbqrXgDZc8fjStWV BhclxwbGFpblxmMVxmczIy KCsdxznsZFZwJVpkH5ilBn DpYTYjkZgoJQgel3GvRDAt XGNmMlxmczIyIEltbXVub2 rjk2XxG8pupCwhtAV2OAGi U6xtmZHdaNA6DGX1iO8xPB ppslCkFEIpv3TrWMQzLFYk BuF3dC3tDFS4KlMQvTywQX BsYWluXGYxXGZzMjJcbGFu ZzEwMzNcaGljaFxmMVxkYm FgJEKzEDqgV0kzJpWkE0Pt ZOXzCwYfjMfpYGspXNg6Cz xwbGFpblxmMVxmczIyXGxh jfqrBPFiJTkaR0nsVfHwGA CadIxnOUizj5AxUHWnMZHo MlxmczIyIHMgTWVkaWNhbC QTMI26ZVGoKQRgxNrpvR3l lLRKHHPrctE1d3F4HJggTL QaCUl1LAktdaGgHMYbpZ6t AHUdKI2mHDd4mpDoVFCpy6 AxZS9lQOCozURlKEM5ACTr i1WuS4Ztt8YlBCDsUQIvsk 8qxmZlTfBPsVVyKIPiuv25 OLWcHM0tE0daUQEbIKFtur IvwLQqo3PvUXLmsWP8gNDs HN1ISiXVe88bZDGzSHTHdv GtYSMxcYmvsOB0wkW8tH3k LiBUaGUgRkRBIGhhcyBkZX Vgwo7bszIqKRQxTUFdr3Rz bIIhkXXiipLpD4Kch6JrOX Lisn88FDskgREruu98AG0a Y6Gbd1ForP7hNVvwOPWtl4 DeaJKdtZXeDBZgk9SwZ5rw btdmDQvmcLYnnG5qJITxQJ v8PZJqr1ZcHNNxi3UoPbOg reUxDCZmELQgDTNlrL85PH L4mCfpkEhnvaLrZR0tYSFj akKjYUJpODHzxH3lEYaxwy EuSJLwftQ6g5L6KXxoLWDx nyVpYkemYAR5krLpnmJ5pD JgG9xcjqavDWnfUOQpz4Co hX0bgEMNkWBas6AkyWLnbW NNrTNuKK7ygeSyNR5hWUH7 ODggKENMSUEtODgpIGFzIH E0FMpnCenwCMB4shOjAMRm c9DjQBioA3ogI77sbJjjaW k1rQRtrArwuMFjiXRbORYc bsK0j2V3LWIfy1YtbeagPN BsYWluXGYyXGZzMjJcbGFu ZzEwMzNcaGljaFxmMlxkYm VbISEaQGqbY5zhGrLaJgUi LnudTAG7aA== [id number] 14:43:25Surgical Pathology Report Case: [id number] Authorizing Provider: Konstantin Morataya, Collected: 12/02/2022 02:22 PM Ordering Location: [address] Received: 12/03/2022 12:07 PM Service Pathologist: Ivonne Guerrero MD Specimen: Pancreas, Head, Head of Pancreas Mass BX via FNB THE DIAGNOSIS HAS BEEN AMENDED FROM SUSPICIOUS FOR ADENOCARCINOMA TO INVASIVE ADENOCARCINOMA, F OLLOWING DISCUSSION AT MULTIDISCIPLINARY CONFERENCE AND ADDITIONAL CLINICAL INFORMATION OF A PANCREATIC MASS BY IMAGING.A. PANCREATIC HEAD MASS, US-GUIDED NEEDLE CORE BIOPSY:-Invasive adenocarcinoma, see comment Signing Pathologist Direct Phone Line: [phone] electronically signed by Ivonne Guerrero MD on [...] noncontributory. The biopsy is inadequate for ancillary studies.[id number] massA. Pancreas, HeadReceived in formalin labeled with the patient's name, medical record number and "pancreas head" is a 1.5 x 1.0 x 0.2 cm aggregate of eli-red soft tissue cores, which are submitted in toto in A1-A2.Katia CanoThe interpretation of this case included the use of immunohistochemistry or special stains.Control Slides Examined: In-house known positive controls were evaluated along with the test tissue. These control slides run alongside of the patients sample show appropriate staining. Internal positive and negative controls when available are evaluated Immunohistochemistry technical testing was performed at [facility], Pathology Laboratory where it was developed [...] perform high complexity clinical laboratory testing.IR PORT-A-CATH [id number] 15:45:58 [facility] : 1935 Sex: MRight [...] the patient's medical record by the nurse. Manager Media Relations: Pankaj Bhagat MDAssistant: None. Approach: Right internal [...] the needle into the right atrium. A4 [place]ran micropuncture sheath was placed and a 0.035 wire was advancedinto the IVC. A subcutaneous tunnel and pocket were created in the rightanterior chest wall by blunt dissection. The po cket was flushed withantibiotic solution. A 6 [place] Bard single lumen power injectable portwas placed [...] the chest demonstra emilia the new right IFNqoz-V-Iwyd to lie in the expected position with its tip overlying thesuperior right atrium. IMPRESSION:Impression: Successful, uncomplicated placement of a right internal jugular chestport using sonographic and fluoroscopic guidance and conscious sedation.The port is ready for immediate use. Electronically Signed By: Pankaj Bhagat MD02/09/2023 15:48 CDTWorkstation Name: [id number] 14:13:52 Test Item Value Reference Range Interpretation Comments HEPATITIS B CORE TOTAL ANTIBODY Nonreactive Nonreactive (BEAKER) (test code = 497) HEPATITIS B SURFACE ANTIBODY < mIU/mL <8.0 (BEAKER) (test code = 647) HEPATITIS B SURFACE ANTIGEN (2) Nonreactive Nonreactive (BEAKER) (test code = 2585) Steel Manager ID - ADMINHEPATITIS C [id number] 13:43:18 Test Item Value Reference Range Interpretation Comments HEPATITIS C ANTIBODY (BEAKER) Nonreactive Nonreactive (test code = 367) Steel Manager ID - ADMINCOMPREHENSIVE METABOLIC [id number] 09:41:41 Test Item Value Reference Range Interpretation [...] (test code = 347) EGFR (BEAKER) 48 Interpretati on of eGFR (test code = [...] not appl icable for dialysis patien ts [id number] 09:40:27 Test Item Value Reference Range Interpretation Comments MAGNESIUM (BEAKER) (test code = 1.5 mg/dL 1.6-2.6 L 627) CBC W/PLT COUNT & AUTO [id number] 09:20:43 Test Item Value Reference Range Interpretation [...] method.Test performed by IFA method.HEPATITIS B SURFACE [id number] 16:24:31 Test Item Value Reference Range Interpretation Comments HEPATITIS B SURFACE ANTIBODY < mIU/mL <8.0 (BEAKER) (test code = 647) Steel Manager ID - ADMINHEPATITIS B SURFACE [id number] 16:22:45 Test Item Value Reference Range Interpretation Comments HEPATITIS B SURFACE ANTIGEN (2) Nonreactive Nonreactive (BEAKER) (test code = 2585) Specimen is considered negative for HBsAg.HEPATITIS A ANTIBODY, [id number] 14:49:28 Test Item Value Reference Range Interpretation Comments HEPATITIS A IGG ANTIBODY (BEAKER) Nonreactive Nonreactive (test code = 2797) Steel Manager ID - ADMINALPHA FETOPROTEIN (AFP), TUMOR [id number] 14:49:23 Test Item Value Reference Range Interpretation Comments ALPHA-FETOPROTEIN (BEAKER) (test 2.4 ng/mL <10.0 code = 1094) Steel Manager ID - ADMINHEPATITIS B CORE ANTIBODY, [id number] 14:49:23 Test Item Value Reference Range Interpretation Comments HEPATITIS B CORE TOTAL ANTIBODY Nonreactive Nonreactive (BEAKER) (test code = 497) Steel Manager ID - ADMINHEPATITIS C [id number] 14:48:19 Test Item Value Reference Range Interpretation Comments HEPATITIS C ANTIBODY (BEAKER) Nonreactive Nonreactive (test code = 367) Steel Manager ID - ADMINIRON, TIBC, % SAT. (WITHOUT FERRITIN)2023-01-21 14:20:11 Test Item Value Reference Range Interpretation Comments IRON (BEAKER) (test code = 547) 54.0 ug/dL 40.0-160.0 TOTAL IRON BINDING CAPACITY 226 ug/dL 250-450 L (BEAKER) (test code = 769) IRON % SATURATION (2) (BEAKER) 24 % 20-55 (test code = 2590) Steel Manager ID - [id number] 13:37:05 Test Item Value Reference Range Interpretation Comments FERRITIN (BEAKER) (test code = 105.35 ng/mL 5.00-275.00 361) Steel Manager ID - [id number]-[id number] 13:25:09 Test Item Value Reference Range Interpretation Comments ALPHA-1 ANTITRYPSIN (BEAKER) 210.30 mg/dL 90.00-200.00 H (test code = 502) Steel Manager ID - ADMINCOMPREHENSIVE METABOLIC [id number] 11:10:45 Test Item Value Reference Range Interpretation [...] not appl icable for dialysis patien ts Steel Manager ID - ADMINBILIRUBIN, [id number] 11:10:45 Test Item Value Reference Range Interpretation Comments BILIRUBIN DIRECT (BEAKER) (test 0.5 mg/dL 0.1-0.5 code = 706) Steel Manager ID - ADMINPROTHROMBIN [id number] 10:55:40 Test Item Value Reference Range Interpretation Comments PROTIME (BEAKER) 14.0 seconds 11.9-14.2 (test code = 759) INR (BEAKER) (test 1.15 See_Comment [Automat ed message] code = 370) The system [employer] generated this result transmitted ref erence range: <=5.90. The reference range was not used to int erpret this result as normal/abnormal . RECOMMENDED COUMADIN/WARFARIN INR THERAPY RANGESSTANDARD DOSE: 2.0 - 3.0 Includes: PROPHYLAXIS for venous thrombosis, systemic embolization; TREATMENT for venous thrombosis and/or pulmonary embolus.HIGH RISK: Target INR is 2.5-3.5 for patients with mechanical heart valves.CBC W/PLT COUNT & AUTO [id number] 10:48:21 Test Item Value Reference Range Interpretation [...] (BEAKER) (test code = 2801) COMPREHENSIVE METABOLIC [id number] 17:16:22 Test Item Value Reference Range Interpretation [...] patien ts CBC W/PLT COUNT & AUTO [id number] 16:57:29 Test Item Value Reference Range Interpretation [...] PERCENT (BEAKER) (test code = 2801) Tissue [id number] 09:45:56 Test Item Value Reference Range Interpretation Comments Case Report (test code Surgical Pathology = 104) Report Case: [id number] Authorizing Provider: Konstantin Morataya, Collected: 12/02/2022 02:22 PM Ordering Location: [address] Received: 12/03/2022 12:07 PM Service Pathologist: Ivonne Guerrero MD Specimen: Pancreas, Head, Head of Pancreas Mass BX via FNB DIAGNOSIS (test code = [id number] 3220) FuZzEwMzNcZnRuYmpcdWMx IHtccnRmMVxlcGljMTAyMD egKB2kvHpdxFf8iEycDLZt oxF9yZFiNKiua5vrNTF4r5 icwwjpHBSbYIwgSi1qsGMi aZadOhGfOIGkWOo9pZ57FZ BbmY6lrKExIRztdtXoXDxa xhIpzjLiBnc3LXL4cTkwNN KpgyvdElK3BUvpEXTttdhz RJm3KZzcECZkdPG3YLNxmT BmT9QfPLBoLY0ybqw7UEW6 YGdjFNGmOaG3UIOmlGOrVW HhwUdgZGbtx360YBB7UzRq DCXbxtSbrUjulU4tVuCbYN KSRbVYFM1RBdOWYGxQOAsF RRKqITWJCifvOLZgX4XRDY OIMI3BBIAFUNTOH0NMJMIP L5YZQKekdYGzKQNsdeEaCM CrCCGKsNBziGQcb0QdCMKw tpTlIBRef5QfanCpqk2rYA adq0JyRVOxsJ4fjpLdjQPw JHKeJPgdJRY9s3ujdGJwKK NzdGUxODAwMFxhbnNpXGRl EokajlsfROMmHTU6hnUgEG SeDIwsPTFlEQctBe2krIHo qFkpRzMrZNYwq1bpuaCRji yheOy5a7pgNIHsHsO1vAOf WPymX5ehlsWayWHeJGArUU b8kG93RQZwdZ4mvZLdOXtm fcJiCjI8BKhpSFQmMaQ8PG YkbHYyLCIdW5xaHWYlGYhk OFRfOPhsjTOqSYM4ySiqi2 S5iOQxgCKxsEbtUtKhCuTn IqHOg7WxMDk9nOqkW5EoLI IkXlY2eLOmMCQlZYmkTBKq VORalwN0zR52OOzfqyU5pO Yhx6Pfq94cj363tA0csFMp WJL5ZCMmURAjoMNqUHPfTJ B7HWZghSQtN4vfSWKgMD1g wjpgNUcoMXekFTPocBJ6IS HmtCKsS9NrGYVhHDtoNQPr yqo1BlYqQl5acNNocOtkYY dcc2gxq4wowTAgFwc7MGTv KwCcVidwXJmov4Ikj3xeIQ Ixzu4lXKW7pZWgmWcly2H0 kSQhXYVknXDsZYRgHF1yoK SwWZIqkR3iedjzXRFdUgDv wgxfWQXvlBunlbXhBh9tsZ dtZVY9SVmxM0qseL6eXsR6 AIneJ6qkrP2rUFz8DTnoOD LrcZJ6omN6YEHaqASsK6Aw xB1pODZoAR2uhkk4s4erDH F9LNatPEUnZwC8luJ7QJXn jDGvOTJvkFdtUEgnh419DO R5WeYhJANmw7IgK8RsrKsn Q88zqPviR00dMUClvFfbpU 0oaIvxbZ5aVrJkTwAtSPla cOlhSB7uITStD2wzuQRcAO WcAKBjA8rwJtQmtY0vcNyr RZdrusMzUPBaBtc9SMGatS WtCMLwYee1EWCkGEQiN10z qxpdGLT1tG4vc9ojn6NnUE vdQNE4GZByf15aEDpirhD6 VUxdSv77HVaqYYN6SZbuMU J9fQ== COMMENT (test code = w8rudZZfXMXhzHWcDPUkH8 4247) l3tWTnw4O3gggiNQ1vyRsp gDg5jWlhGHPwurD8mHQwAX bwp7dgSTM2g3uelgnsXROb QKeyTw9cqTQfcRbwMyOmVH WbUJu4eO48ZXLhnT5coYJm IDtccmVkMFxncmVlbjBcYm o2RYU3cHoeOXSwycorIxS3 JWcfRHCxwkjpREe6JEogLR HffHH6ZMXykKGnF6RqOJGg MT1lswy0QKZ8TNgjQNTnDa P2PNFmmGNbCGTbxImrHLhx f053HKE5ZnHcEJQpkmIglU ngtC3yBaZlZTlcSlZiUFlu TAEancCsWZV9vDXqEureqE Y7UXOwe8caXZMkHIMuwWrb VE32iIgdFtMqT19dxaJdVS 2cNNCtboqnczVeKQ1lklXu nYcaZWRhxeKbU3t1lKFij9 t3vSJsCQ5hLUTifFAbfNDq VACpOgSvg3skKURfRTYdsM EhomcrCVbqDjtfeD7igO5p eSBpbmZpbHRyYXRlLlx+Vm VpkIFaRMfmQSB1lZaqZSgf T7yguvIaCHHsARIlKEQeTO VtYmVkZGVkIGluIHRoZSBm zINdq2JrERY4ji6sMONfdg Yww5OlEQPgl13tvXTuvB7y wDWoXAJ3uHatLNvwZ7EksP MuXHBhciBUaGUgZmluZGlu W0FaRJRsELCplyBtor6pdj lxHj2qORTtBVvsNdoftIDe gUfpFeVlvYR3EDysRXBwap 4yVMJtkU2qbPVwBHxqy5L7 SSFmLTPzYDBwyuq7zTTlAH CdEUpxv0OjrySaON5ag0Eb PkEsaQWkBWYcpnH2yKdlVJ YrxKBnBP8zlRJrMJPqiuIP Ljprm7DqSUF5mWPvyDPuIX vhuP82BKUaqrP7zIMnvBBm c4XzTYxlf4Pya63wmENlV7 Tfz0vjEpqyrHbbtjLyo5Hf JD3tgrGaylTqeIA5iK8koB 0xaRSmNP0vbHGsDZLeXRhl LPEad2DdmAXwprIslmJlCG Y2SGLwANZhkeAkgrFzxKxv dpoet6S7JDysib8bcOMugV == CPT Code(s) (test code a6uojMQsESLqiDCxEYAqI3 = 3357) rnkxDaJVKmpREvD4Zgxwvz MVghTI6hPX6kyKacdEZvuC KrNTTqBfUpg6wwd377nVAs q1blVEYHTWzuQFWQNUw7u3 kyKJJUguelhGl7tUkaG61r c1R1SxemN23pjOTcIJD0XO WiWWMclKYmOUXmELU2CHVw uRVsR0uaBPGyVY9hdpbbPP msJDzaVFEjgWB4PZMfeUQf V9JpXHGbFAvqMONjrmp4Dn DtQx6ffDJzjLcoBQrySMRj XHBsYWluXGYxXGZzMjAgOD gzMDcsODgzNDJccGFyfQ== CLINICAL HISTORY (test n6asqJNqLJAlxARiVWXmY5 code = 3356) unerZsKSBjtPIuO4Uqfjoj FRzeKU6aLU1wnOzonYCexJ YpJOKzUeZkm3ijd963jVOy k4vdYEIAjzaypFz3zYoaS7 0lo5O8FxghH06yrNVlMWZ5 MJDiMWSuxQXlHFLaPPL8AO FjwXRxY9dgRAEoEF1ewosr SQahJXuqTMIoeWL9JJIwfX MrJ5GcJVQlASmdYLBguof0 RdSeLu9vxXIkkSjtQKnjKQ JkXHBsYWluXGZzMjAgUGFu I3HdZWHqFwHnHFIwUKFync 0= GROSS DESCRIPTION (test z1fyiIZwBRCgcWRPZCFwGQ code = [id number]) KdVQ2xmTwtuWo4pKhpTCFt zdB4hJHuEQanm9ltJPI4y7 kmrvENAhsaCAYuSN4aUYdf VQWdWT2lObCaCKMhWqUtVS BhcGVydzEyMjQwXHBhcGVy vHN1OEDfTI5zhhwfAAnmIE nuCFAnrzL4VXDehEVkB2Rn LWAeCL2wzyyrVZC6BEWRXr uxYe4eiVIybVfdXrEoHySk YXJzZXQwXGZuaWwgQXJpYW b2yA0AWxleL92ch0J8Gcw5 YAHlATHiU0EdWS1bYMMsyI UpG53ZAxvgKBS7LMXQBtli VsfadDexx7DpuJLjXLQfFH xcaWQgNTEwMDAgXFxkYiBP GwQeVaByNBYhKmC6SOEaTX f3NBbeMyQBIEX9WROvDsFc RLs3OPifWEzwtGFiTFQiCU GdJNFnATnpfoT1f5trQXEe sWEwNAX8VTqhj7jcAInjPK K8FNXfRpVePNNqWQ9HLbVe PDIrBXAzWia6PeT8CXd9GJ ILXeMgSkIsFsQgUVC0VwQy NQj1ZIl5YLcUOdB0GbE3Rq DaFrAlUOH5AaFsJCa5SWKq XFxzcyAzIFxcZmwgXFxuY3 1ccGFyZCANClxwbGFpblxm czIyIEEuIFBhbmNyZWFzLC BIZWFkXHBhciANClxwYXJk ON6FKNWnIWcuLSGrYsBcaB FeM3waLWIcM99in0MZc8Jz BM6OEPi4oaLduuujaC0iKL OpsqBgMRnrU4FyOXZkHoOf YgFuLTm2ZIJpeF2sFs9xzC DcoN4boWCzETslPEF3fKIn OQYkARAwSIDuVU18MKvRIK MgbmFtZSwgbWVkaWNhbCBy ZWNvcmQgbnVtYmVyIGFuZC RfvHmnEwMqOTz8P1GmtaMj ZWFzIGhlYWQiIGlzIGEgMS 75YLcdWO4nPXyeEW9eJBZc BHReG6FsL8N8JNRfIbJ0AK 5czjEvJHInQcPbrFpyo4Jf EBDujxRdOBA8xTqxkBDcii Xam2WsqKa8oTWkPErzAAAh vT9cnV2lQZLalDxjUZZrWQ m1BpAnAwzlLEMuYTzbhSWb MR3OYBDxFjFtVZWxV6vrZX WxEL9EMJQdURihijQxROmi mTP7gbMOPH5xkv4FFLPhnI MBBVC9IE9eEInpYFTdF8Rh A7XnooR5x7xhjLbcj1QouC XkXK5upVAsOL9YBFKjpqAv DQp9 SPECIAL STUDIES (test g1eqvBHtECKfo8dbJAYeqW code = 3376) FuZzEwMzNcZnRuYmpcdWMx SIxqatZiRGihs2WtS6VsPl AwMFxhbnNpXGRlZmxhbmcx ITJxDLV3mvPsPSApZPfgWG FcAIhwEq7fkRBhwAlxYqGy QURlg1kmluNIdatfsOp5j5 fpDTVoOuD0eHThBYbwA6ak aoRbiPGbZ1JgfGTpyNo4f4 yvVzMiNlW5tFLaQWuzU0yj gtVsaWTjEYBzNDj4mI90GD ZzgH2zkGLhZJwacaCyQkT3 MWvmYYEvPrD0BHGcfYDzAS VlY1ccJGBsQNovZZNyQMdl qPViAZI9rAvmw5B3aOXkgS BdnPinOjUgGfGySdLMp2Ae VBp8cWteM0AwMLQeWhX6rU QgUGFyYWdyYXBoIEZvbnQ7 wHcterYrx83rdXPxVBXgHP DyJyRrzCowQGBmPQIRr5Ig uUmmXHP6vDw0xEreBpwtGL L5Dzm8WY7ooy70fwx3nLlb SVGuwujqNvM0NNndVZWrbs yxCFo6EIpaDNSfdFW8SUVf pZWzR6YuSXMsZW9vgao0VY A2RYuaGOTqFcF0BVHoaVZt XEQqzBjwVUmcs662XZT8Tt UkOK3mH6Tjj7X1fF9ypZXa YXLbpJIyTxQtFDUssm1gvE SwEJahy4TyVRS1yiA2nLIa nKVlPRIaSR20Oddic3KtAc ndd2EkL75atGK2KBotz1cg TF8jMpD7dxPlVJdnz7ngdF 7cVdW0JKzcQH1mWQ6pGTBl zT8xfesrJYReOcYfemevSP LbbDnsykZsQi6qcMsoVAU6 RCiqG7ajoW0jWhG6PSvaZ1 sgnZ4zIYx0HBtnhPX5OXEv iI1nCF9qnsieo3tgXIfhRZ owCMFrbrG2eiK7ILXjaVBn W2NlaF5mDTNtJH3wyekfv6 ecVDV6AFbgDBJpNLJ9PrKr GGXqc9Xcbam3TdAkm0BaeF EgWDkzG52fr384OZIsmmOk U6fkbKHdmahriYSwcmneNZ ffwzB9TPKbSUNtLZovRHUw XGZzMjJcbGFuZzEwMzNcaG ljaFxmMVxkYmNoXGYxXGxv Z2qiOlMkE7RhELYlMoZxSV fhCIesmAHnlYQljLT9xG0i KZ4jQRJjbUFjU2IuKDOska HdsTCbQOD9nWDfeYYoVP4q VKnugMQbn9kft1LeH2ttvR glwOA0RN5gRTIwMMGqENke c9CdqC6iLfadkNIxdeljXV xmczIyXGxhbmcxMDMzXGhp A9gtAdUkQWZzpQvuYIfzw3 NoXGYxXGNmMlxmczIyXGx0 cmNoXHBhclxwYXJccGxhaW 2gTwUkLkXyErqoIA3xAXCp Z2yavCImXGZqFJBvV4crYl IkkH6afWxpNAjcVdMkGqYj TzDXn776mt5oPGWkoVMfzg MUxMJmwM0fOQosEBknFFio eEXqFTzrw0unNMUid9c4dH ReXCPzbgGxg9jbYPirvrLm DBSttJQmcJQtIXWmi63jUM qcyMzblWofLGTfk1XwmCut o4DhTrBfVGntc9UeY00ciP JvbCBzbGlkZXMgcnVuIGFs d59ym3fdWCUlXbO9gVRnfV P1mCWwjWYfo0RdtYajDPDk e5mbGAGjjl3leytatREta2 UdtI7todsgRHemeEGxkzOw IAVoe6q6nYZaCXPtCWTdLA bgmMu6EHTsj950nm9holP1 mAGdBBE6ZQesCPRzEDVvyg UgZXZhbHVhdGVkXHBsYWlu XGYxXGZzMjJcTsa[facility] CenterZzEwMz NcaGljaFxmMVxkYmNoXGYx GDfnI8ktNaXnP6MtNVCjGe DscHBtL5iydTKmLYWoJEmn XGYxXGZzMjJcbGFuZzEwMz NcaGljaFxmMVxkYmNoXGYx GQjdI2yfDtSrE2BaKBWaLq IgIFxwbGFpblxmMVxmczIy AIfwocoqCMOlNRyqL1jrQn OuREYpzUycDMzlx8GhJBPw LCLsOwdkasScDFz4jjOoWE BhclxwbGFpblxmMVxmczIy ELnbtyuqMUOwEXjbE4bgCz WvFCChgPjuNXcjn6FdJZKn XGNmMlxmczIyIEltbXVub2 jfe9AiQ2auzRkdvVB5FAUm H5lizFKarPA4HYD0hI9fSU lcojObMPIzj5XzAFKaNLUp OpM8wE1gJXT6ObWAxMywZI BsYWluXGYxXGZzMjJcbGFu ZzEwMzNcaGljaFxmMVxkYm ZhOHAuTJeoF1wvIfCqJ8Vc HFCgHjFelAgiJDzmRSf0Yo xwbGFpblxmMVxmczIyXGxh qeorGDHpERobC7maNxVwPX AktVcaPTpbw2SaQHTwIOTp MlxmczIyIHMgTWVkaWNhbC FOAU46PFKkYPWgsXduqS7j rAWPTEUfsbV7q7J4QBznAK DvJRz6VScxyvKaSRQsyL1g EYTvZT7rFGd9heWdNAQdj4 UgPT0oYYFniCQqOQN5DLCa m9WgJ9Qay2MpTNTzBHKbfi 1lykOyGzVNeYXcOOPkfl91 UWWpMG1oL7xuKFFsWPOxqm EvpGOgb6AnYNBkxMI2fUQc LD4THdCGi27sMXNzEFALrg IwQSTunIjhqMP8udI1qX4e LiBUaGUgRkRBIGhhcyBkZX Gjbq4uhfAuRYDaRUKth1Xf rPRlmKEnpwVzT2Hgs5SuKK Nyvd64XMoqcVAesc05BJ5g I6Zzx4QhtS6rDLclQVYli8 HaiXFdjLVvPSZgn6CoW6lz fcwqZIordRVunX3oUWPoBW u4MSJfk0MqTSVtm2JlGnBm cfEvRBIqQKNoVEYtxQ66YT H0hSfzhGdghpFlCW6pFIYo egHpMYZzROJaoC9jXJsbcl PgOUYikyD2l1D4FHneYHDz ewZnOaeaTHI4fkKzqsE9yK EkH2ncskgcZAmbQXGvh4Qv gL8eoFDFnWHrl0VitNOaqU DAhGZxNZ4dvdHcGE6iIMC3 ODggKENMSUEtODgpIGFzIH F4UOhsMqzbSUT7juCvFIPv x1BvLYawT6biY68ftAczvV v8qJCmnRkszHYslGGyPOHd pdN8n9M7VJZfx4NetawaXR BsYWluXGYyXGZzMjJcbGFu ZzEwMzNcaGljaFxmMlxkYm ApGHXeXGuhK6qkOvKvPdIv NwwcTIH0sK== [facility] [id number] 09:45:56 Test Item Value Reference Range Interpretation Comments Case Report (test code Surgical Pathology = 104) Report Case: [id number] Authorizing Provider: Konstantin Mariaan Ali Candaceankur, Collected: 12/02/2022 02:22 PM Ordering Location: [address] Received: 12/03/2022 12:07 PM Service Pathologist: Ivonne Guerrero MD Specimen: Pancreas, Head, Head of Pancreas Mass BX via FNB DIAGNOSIS (test code = [id number] 3220) FuZzEwMzNcZnRuYmpcdWMx IHtccnRmMVxlcGljMTAyMD nfIT8gjFqwqNe7tGvoCSBe cdT2nKUmVIqid1uxODE9r3 tmxtcpGCWcBRjcOe1qpPMb kMbiBjHyHYOvPMw2zE42CO QuiK3tpHSiBFwvarZlIQkr ubQohaGsRin7YPR0zGopZO XddsrsIlD0TCrgHRKsdgxp WPd7WFjlPQRoxBJ2UWMquD EmD1WjZRRrKP4anlg9LYV5 WLudFSVlJxL3ORSdoCJaVT QgxHftKCmpa091TXU6YfNu XQJhroMlqSjelO3sIvGvGK PUEvTXUH7LZmZJBZcSUBaQ MIAhEAYGYcsvOKTbL5DGFX RBXZ5NFBVJXCGCK2YADKSD L5VVEBugmJHqSHZnouEkTS GwKHZBjLDzwNSdc6LnLAVv moXrPNXxb3QjokBkdn5iCQ vdf0RdFXSxkM2vqgFqiATg RIYfJBoyBKI1c1jwqCCyMK NzdGUxODAwMFxhbnNpXGRl FmrlsydmBGOpBWM2cxMcGB ViKAsaGHCdUJkdHa2sjBEn cGwrBrBfWZOtv6bansEYbi bvoYa3d9qsKZCrXqN8wWQb BMtoM4iimrDahMWsCEDcBB l8yJ67JNRtqG2tsQKfSCgo abAlKtD8GVojUPUqKbE0BZ XoyPPyGTIcB1fqHNUbGUod JSQfRZyzoJWrSZG6vOnit3 N9zCOqgNBcxFztEvCyWiIb YdTSr6VuLKu8wZijT0SmYM TnFdJ1mIQjGHIyWXikNJBq HSAauxB2qT60SFllreW5lE Jxj6Qtq04ha136wM8rrWCt CDH9PTXoJVFoaHIgAWZzKQ I4ZHYmwMNwL3wrVSQbMM6n jpvwYGmnLFzgYBMqfAA9PL IbkTVlU9AbBXUuIWkdGNPe wjp3GjSpXo5xqICvlBrgRC npj2vnr4rveIOwWhp6RUNm OmPhHmkqTQfri5Vhl1phWE Sndp6xKQU6jKIftYhst3D2 iMSpMJQdvVTfHBMpBK6hiG XpLIXnkT0aydyhAUEnWgMx kiywSXMqoDoyjtToRo3vrO usZLS1VGaxN6rkuS2mGnY0 VXabF7zksZ7fPNv6WEnsXV WanCL2deC5WWEcbWRkL7Jv cU4nPUBoUW2kgxd8j5elHR N4IMbuCHDvObZ0sdZ8BLSv rKGsRRIayCvgXUjwq631AS N3KfPqPBZuf0ToJ2LwfCkv A04riTsxB70jSTScgFbotY 4elEvqmL9hSaSqEbIrZAhj uVzcAF3gLBFfX5wrcARbRH NwNBPfB1zwNfOmjV6vzBlo IFxrqyPzRESwBip8NAStrT HbRWKrElb0OTSpSYMkR27n njxyBFX6uP7qm7fkm1JqSP tyOLA8GFBrs01pKQjcykO1 XLeaFq07AVqfJUP4IAqpZV J9fQ== COMMENT (test code = k6ossWIpQLFemSAbOFPoJ0 3357) l8tNGnw6H3fdusOO4gnTmo sLp1xUnzEXAwsgB8bFKoKL mvn5lkGYS8x6sewgjwNBQn TPdkPm9osJAszUmzRmYlFG QvCJp1jB75IKCirR5hhVUi IDtccmVkMFxncmVlbjBcYm j1OBB7qHzxFBWepwdnVrJ1 EFqkCPFstdkeWLb5NAuiSW LkuGC6XCCwoFTvT4TaQVLe VH2yiym3IVU0FYfcOFIoKt K0GFTvuVDoDHFmeAdgXFkp e010QKK9DjMzKYLthaAksM svyQ2pAgMzNUriDtFtBGbc DFXwxfAkPKO7wLRfUijrhP N8GZTci4myVVAmRYNdgBig CN11nMdfAsObV93xlsCpXA 3vOXMdcffwsbLqIC8appVp oQsvDXWcgjJrZ9e5kRUmj3 x6hPRlHM9vYVEwhEPhdTSm LWIqFhJnl1spJTEoRRPjhT MzrjqaBCjzNfsjcG8opI3i eSBpbmZpbHRyYXRlLlx+Vm MtdJAgAOylXLE0xNctBSvq D2qrvpFeKQFhSXVwMDHvCB VtYmVkZGVkIGluIHRoZSBm yXYua1YdKDE1cn0aWWJxgy Ivj0GiZIZye06hnEZawG5t qFIuSQK0iTyyXGinD6PhcM MuXHBhciBUaGUgZmluZGlu P5GkCNKpHDYyxvSayr5dza mpBl3aBZXeEAzoXglwoMRg wHspCfRsuRI6CDseIRZtcc 9aKOGznX3pgNPaGNsgf2A7 VMTcUZOoKWWqjhb7jNSkBU YvUWycg5MzksBkAC2ei8Pt ZyIlbGPzIVJmtuR8qZbfEF KehZMbKT0maQBgHYLpwoKA Tsnna6PiLBN0qLEexLCsUV ahhD71MMGhqxI6xZBpiGMa r8FmLIymj2Spn84cgBKfD4 Nmg7axNkxmxVyqmkTcg7Ns MB4zphFbdaJssSN9eP3azU 0wwOSnCG5qnBXkCFYeBLfg ZFIos3QczPRnsmYzejIdIM X1DQVcEWGztqUropMupGcz eszwq5N2UAhmxx0mcAYpcS == CPT Code(s) (test code h0yluYJyJQPrcEEhJXWhI0 = 3357) xhoqXuXWQiqCQvR9Fjbizi KAokBV0uFA0ywIwwzWBpjJ TxAVGpHzTjy3fxg559oKDz h6zhXZEDNIotXZSYZKu9n5 odRUVLcadjnLg6kBcuZ51k e0Z7VzymM60eoDGvHEX7JL CyKXOzsFOhRBHzNCR7XROw oZKnL4ivYEWbDB8oulekTP kxNFqxQLRmcQS4ZVWyvEEv L3SiXUNzIIihGPGcpsh0Ag MaTr3mmMJxwBbjQFrnOLVl XHBsYWluXGYxXGZzMjAgOD gzMDcsODgzNDJccGFyfQ== CLINICAL HISTORY (test q9hunRJnYTLaeCZuQJLbX3 code = 3356) mwesAuYQMsfOLlY9Vrqjug HLteNJ0nCN5bbUpslLQslT DnAWUsIvKll2mlu339uWPu k1qgFFTVctswjNp9oBynD8 7hw8J9VtbdL34kgCDsBHQ9 XFOtMZBnxKJhJLJrHSA7UO KjtQGzF3maBYRiXZ0rhmge JUzaGMeoPVWiuBJ0MCIgaN NxN0DfYFVlBOwxOQAmvru5 KnJxKr8gzCLoxFeyNDjdMM JkXHBsYWluXGZzMjAgUGFu X4XpTNFhFgPbKYEsLCBqhi 0= GROSS DESCRIPTION (test c2skfGGkPULagZSMTGFeQD code = [id number]) TiTF9ezHviuJv6oPxrNXDp nrK1fXDuWIjcp3jrBBS4y1 ikltSMQmadUEKwPK2kAXxh GBAyWQ2vAiUrVQUpRvPxUG BhcGVydzEyMjQwXHBhcGVy vER0HLBxEY8riggnHWgcYC eqKXQacwQ9LGNcyARrC1Pq UQUoLU8ubdwtUNI1DXDBDr ceXt6nuBFigSujEzTxFbYx YXJzZXQwXGZuaWwgQXJpYW n2yT4ATaxgA15tj3M2Qqb1 FKCcNOCpE8NyIZ2yBEIzjA AvT48XKvjvLAN4NLCTGvem BwdhbOabg0AqrIReWFJhVQ xcaWQgNTEwMDAgXFxkYiBP AbQfTtOgOFCeSyX5IHBdIY b1UPtwCqTOGFF1RZPoBdEi ZRx3CUktRQrepHTbWMFiPK JrIKPjDFnbbvA0g0aiTHEu xXPoPBI6APhoh3krQDhbDX Z3OOJrIkVsTNWlJA6XXzSg SQElDYOqKqc4MbZ4XZl8JM YZKmDtVsBsYjEfISP2HsSz EKb9CCn2TDwZTyJ5CmR9Zi RxWzHlSWK5AxGsJEz5OXCg XFxzcyAzIFxcZmwgXFxuY3 1ccGFyZCANClxwbGFpblxm czIyIEEuIFBhbmNyZWFzLC BIZWFkXHBhciANClxwYXJk BW8BZIEoONqtBSVoVbLytO RjP8cuUEVvU18uq0SFn3Iw MV6VUAu2gsKkceytwX3nEE YkfuYgZGeqI0LxUNBgXbWa MlDdVCu8FFCbcP9oBp3jmV FjuW8szQRzJAdiMZJ2cCHe DRFaKSIyHRAdXO77YJwACV MgbmFtZSwgbWVkaWNhbCBy ZWNvcmQgbnVtYmVyIGFuZC TopDtoOyGiDSx3P1BaazTs ZWFzIGhlYWQiIGlzIGEgMS 02NAqxFN1hCPjtXS0kSZYs THFxU5ToL0Y8WBXuNmX1BM 8cxzItVYSlKkTnoTkfl4Qj OGGnzoXkGSA6rTpklKEcmx Cns7LtvKz0qBDoDCrkXPAa mR1ewU8rYSNqePvnLNZrYN y1QuKoEmxgOXOrTTnliGHd VR9VKBJuUeUuZZBgM4xtKY XrGF8KDWJpIXbxueWtJVzn vGG7esTPAZ8qwy8NLBJqeA HLTSE6KY7uUEjdRABwR1Jr K6QivhR9v5vzwLjkh1BsoG YvKI6nkMHfEZ5DCJCymiNm DQp9 SPECIAL STUDIES (test l4mvoJHpKHXnt6edGMZleG code = 3376) FuZzEwMzNcZnRuYmpcdWMx BAueotGrRErbb2DvZ5KhCp AwMFxhbnNpXGRlZmxhbmcx NQAtQXC3viFeVESaWMyvWZ IaMBbfLi6qhTEpdMjdWtOm VJPqe6tjljUOgkekrDg1b2 zvJABuVtW1jUTiUZhzM8wq xxBspTOoY9EbaPNrrAl8i9 hsQnPoCrV6iEEoRSoeR1jn bqImtDCqAKUcMNt6wX45XU OyqP7ayOXiJQhneaStFeV7 ZOxrIUPgOqP6MCKyzYBaKZ WnH7wnORHkEZtjAKScLQje hQXwJGH2vQjqi8F0mTNjqR ZuqRwxTzRbJsZgRrOBh6Jg OFx1jGiiW8CqWRMrPxP9xU QgUGFyYWdyYXBoIEZvbnQ7 wLmlxwOhl90rnNVzYJCsWH DbFxTewAbuNIUjOOHHu5Zh kScsRBJ5jBa2tLubWqxpKG R7Vwb1TI1lop21qjk5tIaf SRHpkwkjVoA9VYyjGBElsv thPQy0GUmvBZUkpID4GJPu vMQjM7AyVDGnBT2eltc9PC X6TMyvGTXbJeO6QZKltZSs OGIhsXqyPRvli514FZS0Zx BwSH3fY2Wzc6H2bE7jaWLl ILQohCKyShNdCJOwbg8ltT DiKAdso8EzMJC6mcV1kKLs aYFaFYGpON84Abeik2FpQm ajq1CaB97pkZD5GEujt6rb YU7uLuJ4spTqVKldc2nkqB 8iCwU4XGpdUS7mJV2yDGLx tI2xduujKJKaGfVszmmjCG UbwExeigHsDs0bsCxsNUM6 GZrpZ3xyrE2bLgH8BQznZ7 hhfL6vUIg2GKuknQB3RRXi fJ1bPV3cqqqdi6goUSoxUQ mqVKWaaqP2iiU9TFIfaVOg I6VvnT5lOXZrZE9yewghk8 bkXAU9QPnrSPSbHEV2QaVb FHDxo9Vufmv7VnDqy2UkhM ZaOLhaJ93em067TPUwikTa J9mcoUXhrevhlTHatamwVS ascqP5EWUyLCQeMDehZLQd XGZzMjJcbGFuZzEwMzNcaG ljaFxmMVxkYmNoXGYxXGxv M3rnYtHxE0ZpNZKwOfYyFB goQZdevUPahNSlfDR9lD4q GL2tJUKcpVZnE0EpNRKqmf EeqKOiRUJ0dTWzeGIyAK1u YBsqlAQgw7nlm3QdF7qkkA rrsAW0AN3aYHAsLBHxKPhi y7XheJ6vWwugjRBmapamEA xmczIyXGxhbmcxMDMzXGhp G4anTbFkBBGqqBgzZOabf3 NoXGYxXGNmMlxmczIyXGx0 cmNoXHBhclxwYXJccGxhaW 0gGrWdRpLiGwssLR2nSNCt G3tymROdEHAaCVGxZ0sfGy DjqI8onDeqGFuaPsLoGgBk XeYCg199uj2wZOUnvSDtvh UAiGIzgQ5xYZdtUDcdJZle cVInOZilc9jnWMBqx1b3sZ XaFRFojnJdn8pnNAopxyYb WSIymODdrZWmLDWeq87hGG ilmOfywKbuWHOpz9UohAqp v2KyFzAdHMkrv2FaT24mcG JvbCBzbGlkZXMgcnVuIGFs n53vx6hzRWDdGqQ2vGHcnS U7pWPjrRAac0RokVbjBBYr n2dmMBLcby4ddgftpOHyi6 VhsV3tiyxsZKxmcOBugwHv DMLbx7e6kLVlLRMmCVKmTD bgqUf9ZNGhp813hl7lmlF1 qIPaEXO7IVlzFXPxEJPrrw UgZXZhbHVhdGVkXHBsYWlu XGYxXGZzMjJcbGFuZzEwMz NcaGljaFxmMVxkYmNoXGYx VBejU2syWwQdP8ShNIHoKd GfjNSyV0dgrVIrCRXcQFbe XGYxXGZzMjJcbGFuZzEwMz NcaGljaFxmMVxkYmNoXGYx TYwkO1krGaLyK3AtEVVyZx IgIFxwbGFpblxmMVxmczIy HIuqnsslXIXpRVeuU4elLr LvKXOqoWueCMhpa2CwCNGy STFtKwibotStHKg7laCrCL BhclxwbGFpblxmMVxmczIy WMfcieujSMOpPNiuI4dsZo JvMZPzbFvvMLown0DhJEDh XGNmMlxmczIyIEltbXVub2 iql2ElW5zarMyfqKY0JSCd R0czwHBqlKC6OFU7gN2tLA xywoKjUUFex4HjOAGwFXZi DlM0rQ3pUBQ6YaJNaZjpRK BsYWluXGYxXGZzMjJcbGFu ZzEwMzNcaGljaFxmMVxkYm IdXQNpDEceO8ykGaCsM9Cy OKDcXeGysElnXJqlFKw3Cc xwbGFpblxmMVxmczIyXGxh afzuHOLbDVjlT8tlQjNcLN EkiEwcRSgvp5YnHXRyUVYj MlxmczIyIHMgTWVkaWNhbC FPRE87NVLkIGFtcOpdxU7m iCZQNSPyqmV1o7M8VIurXS HnTNc7HUfsakFmWHGjtG3f TNLkWJ0yEOw3kcXgHPXyu2 PjLO5fKENrsZAnCCU4DGOg k5UvQ3Gne1OrPXNaPLBolw 2tlrDsSaTChOAwJHYudl96 RBPfFM0wG6boNWDqKPVasl VulGLhl5AdGVTlwTW1mFFo FZ5VCtBWn58vVNWlQAXOou NvMFRxmDydcPB7coY6aY1a LiBUaGUgRkRBIGhhcyBkZX Piql5qlnBvXGGrDWObp5Nq yESgxACjhsZuV0Lqx6OkND Ogdr03KQpbnCMgvb00AX1m M9Wex7UrpQ0vROkcQNNub2 IzzZMvdIFxEYOet2ZrN9ud mpioYOihbEZmgB5mDOMbQY o0HTBkw2FcVGKps9DsVfVx ozIdKDNfLHEoTLVlvV92ZF N5sDubkIwvbyLhJI7wRNFb onHtQYHmDCSiwK6hDHcari TzSZCxlkH2a6J5OMitXOOy qiBtAigyNMR7dpNjiqS7hY VkI2bmjxzlKVwtOZEwq5Bu cX0hyORSeUJjl3BelYYccA UUrZQuSR8fthImDB5qIQN8 ODggKENMSUEtODgpIGFzIH I1JEmcBkutPFN9veDpVHYa q6WrJRtzB1gsQ98wzGkpeJ d7zWYxrPsaeLBkoVCgYSMi hgY7b1X8ZECqi3CrhycjLT BsYWluXGYyXGZzMjJcbGFu ZzEwMzNcaGljaFxmMlxkYm RuZLPzEBdiW7rhJsOhWvCf AyebSPR5lP== [facility] [id number] 15:39:31[facility] : 1935 Sex: MMRI [...] Signed By: Ellie Sanchez12/07/2022 15:42 CDTWorkstation Name: [id number] CHEST WITHOUT IV CONTRAST 2022-12-04 18:08:35 [facility] : 1935 Sex: MCT CHEST [...] abdomen: Please refer to dedicated MRI abdomen performed for complete details. Common bile duct stent [...] Signed By: Zonia Mccoy12/04/2022 18:10 CDTWorkstation Name: [id number] CHEST 2 VIEWS 2022-12-04 16:52:37 [facility] : 1935 Sex: MEXAMINATION: XR [...] Hollingsworth12/04/2022 16:54 CDTWorkstation Name: [id number] COMPREHENSIVE METABOLIC [id number] 04:44:45 Test Item Value Reference Range Interpretation [...] G3b Moderately to s everely 30-44 G4 Sever ly decreased 15-29 G5 Kidney failure <15Repo rted eGFR is based on the CKD-EPI 2020 equation t hat does not use a race coefficientEsti mated GFR is not as accur ate as Creatinine Keren wright in predicting glom erular filtration rate . Estimated GFR is not appl icable for dialysis patien ts Steel Manager ID - MMSpecimen moderately ictericCOMPREHENSIVE METABOLIC PANEL [...] Specimen moderately ictericCBC W/PLT COUNT & AUTO [id number] 13:28:44 Test Item Value Reference Range Interpretation [...] (BEAKER) (test code = 2801) BASIC METABOLIC [id number] 07:06:25 Test Item Value Reference Range Interpretation [...] not appl icable for dialysis patien ts Steel Manager ZACHERY WRIGHT Yogi moderately ictericHEPATIC FUNCTION [id number] 07:06:25 Test Item Value Reference Range Interpretation [...] code = 79 U/L 6-55 H 347) Steel Manager ZACHERY WRIGHT Yogi moderately ictericPROTHROMBIN TIME/[id number] 06:45:01 Test Item Value Reference Range Interpretation [...] (BEAKER) (test code = 413) BASIC METABOLIC [id number] 07:06:00 Test Item Value Reference Range Interpretation [...] S NOT APPLICABLE FOR DIALYSIS PATIEN TS. Steel Manager ID - PINKY [id number] 07:06:00 Test Item Value Reference Range Interpretation Comments MAGNESIUM (BEAKER) (test code = 1.9 mg/dL 1.6-2.6 627) Steel Manager ID - PINKY [id number] 07:06:00 Test Item Value Reference Range Interpretation Comments PHOSPHORUS (BEAKER) (test code = 3.0 mg/dL 2.3-4.7 604) Steel Manager ID - PINKY MHEPATIC FUNCTION [id number] 07:06:00 Test Item Value Reference Range Interpretation [...] (test code = 49 U/L 6-55 347) Steel Manager ID - PINKY MCBC (HEMOGRAM ONLY)2020-05-31 06:15:00 [...] (BEAKER) (test code = 413) BASIC METABOLIC [id number] 06:50:00 Test Item Value Reference Range Interpretation [...] S NOT APPLICABLE FOR DIALYSIS PATIEN TS. Steel Manager ID - [id number] 06:50:00 Test Item Value Reference Range Interpretation Comments MAGNESIUM (BEAKER) (test code = 2.0 mg/dL 1.6-2.6 627) Steel Manager ID - [id number] 06:50:00 Test Item Value Reference Range Interpretation Comments PHOSPHORUS (BEAKER) (test code = 3.1 mg/dL 2.3-4.7 604) Steel Manager ID - ADMINHEPATIC FUNCTION [id number] 06:50:00 Test Item Value Reference Range Interpretation [...] (test code = 54 U/L 6-55 347) Steel Manager ID - ADMINCBC (HEMOGRAM ONLY)2020-05-30 05:31:00 Test [...] (BEAKER) (test code = 413) MR, ABDOMEN, [id number] 20:04:00Unlisted Reason for Exam - Click Yes and Enter Reason Below->No [facility] : 1935 Sex: MFINAL [...] Marrero MDReport Verified Date/Time: 120:04:18 Reading Location: [facility] C013Y CT Body Reading Room [id number] 06:13:00 Test Item Value Reference Range Interpretation Comments MAGNESIUM (BEAKER) 1.9 mg/dL 1.6-2.6 Specimen slightly (test code = 627) hemolyzed Steel Manager ID - KYLE [id number] 06:13:00 Test Item Value Reference Range Interpretation Comments PHOSPHORUS (BEAKER) 2.9 mg/dL 2.3-4.7 Specimen slightly (test code = 604) hemolyzed Steel Manager ID - KYLE WBASIC METABOLIC [id number] 06:13:00 Test Item Value Reference Range Interpretation [...] S NOT APPLICABLE FOR DIALYSIS PATIEN TS. Steel Manager ZACHERY WRIGHT WHEPATIC FUNCTION [id number] 06:13:00 Test Item Value Reference Range Interpretation [...] Specimen slightly (test code = 347) hemolyzed Steel Manager ZACHERY WRIGHT WCBC (HEMOGRAM ONLY)2020-05-29 05:07:00 Test Item [...] WBC 0-0 (BEAKER) (test code = 413) [id number] 20:18:00 Test Item Value Reference Range Interpretation Comments LIPASE (BEAKER) (test code = 749) 36 U/L 8-78 Steel Manager ID - BSHEPATOBILIARY IMAGING W/ [id number] 17:32:00Unlisted Reason for Exam - Click Yes and Enter Reason Below->NoReason for exam:->chronic cholecystitis vs [facility]edocholithiasis [facility] : 1935 Sex: MFINAL REPORT PROCEDURE: HEPATOBILIARY SCAN with Sincalide Infusion CPT CODE: 60683 INDICATION: Cholecystitis PROTOCOL: 4.9 mCi of Tc-99m [...] stimulation. No evidence of cholecystitis. Signed: Christiano Hoffmannort Verified Date/Time: 05/28/2020 17:32:27 Reading Location: [address] Reading Room RAD, CHEST, 1 VIEW, NON [id number] 14:38:00Reason for exam:->for MRCP clearance, Pt. have a PacemakerShould this be performed at the bedside?->Yes [facility] : 1935 Sex: MFINAL REPORT INDICATION: for MRCP clearance, Pt. have a Pacemaker COMPARISON: None TECHNIQUE: Single frontal view of the chest. FINDINGS: Lungs and pleura: Clear lungs. No effusion.Heart and mediastinum: Normal heart size. Unremarkable mediastinal contours.Osseous structures: No acute abn ormality.Other: None. IMPRESSION: No acute intrathoracic abnormality. Signed: JR Verduzco Robert MDReport Verified Date/Time: 05/28/2020 14:38:54 Reading Location: [facility] Radiology Reading Room [id number] 06:27:00 Test Item Value Reference Range Interpretation Comments MAGNESIUM (BEAKER) 1.9 mg/dL 1.6-2.6 Specimen moderately (test code = 627) hemolyzed Steel Manager ID - JAMIL [id number] 06:27:00 Test Item Value Reference Range Interpretation Comments PHOSPHORUS (BEAKER) 2.6 mg/dL 2.3-4.7 Specimen moderately (test code = 604) hemolyzed Steel Manager ID - JAMIL LBASIC METABOLIC [id number] 06:27:00 Test Item Value Reference Range Interpretation [...] S NOT APPLICABLE FOR DIALYSIS PATIEN TS. Steel Manager ID - ELIZABETHAYA LHEPATIC FUNCTION [id number] 06:27:00 Test Item Value Reference Range Interpretation [...] Specimen moderately (test code = 347) hemolyzed Steel Manager ZACHERY NEGRON LCBC (HEMOGRAM ONLY)2020-05-28 05:09:00 Test Item Value [...] code = 413) URINALYSIS W/ REFLEX URINE [id number] 17:16:00 Test Item Value Reference Range Interpretation [...] 1574) Rare SOURCE(BEAKER) (test code = 2795) Steel Manager ID - [auto]Steel Manager ID - techCOMPREHENSIVE METABOLIC [id number] 14:32:00 Test Item Value Reference Range Interpretation [...] S NOT APPLICABLE FOR DIALYSIS PATIEN TS. Steel Manager ID - JOHN CCBC W/PLT COUNT & AUTO [id number] 13:52:00 Test Item Value Reference Range Interpretation [...] (BEAKER) (test code = 2801) SARS-COV2/RT-PCR ([facility])2020-05-27 11:57:00 Test Item Value Reference Range Interpretation Comments SARS-COV2/RT-PCR (test Negative Not Detected, Negative, code = 2549386) See external report for linked test SARS-COV-2 PERFORMING LAB [facility] (test code = 7116062) Negative result for this test determines that [...] of the Act.Fact Sheet for Healthcare Prov iders:https://www.[employer]/sites/default/files/product/documents/Fact_Sheet_HC _Fwgwwzemg_Ilef_WNWL-LzI-2.pdfFact Sheet for Healthcare Patients:https://www.[employer]/sites/default/files/product/docume nts/Vuib_Ungdj_Lfbzshbp_Epld_QTUH-LpO-3.pdfPerforming Laboratory:[facility].[place], [place] [address]J/S, ABDOMINAL, LIMITED 2020-05-27 11:53:00Abdomen limited area? Add comment if clarification is needed.->Right upper quadrantReason for exam:->Assess for cholecystitis or choledocholithiasis [facility] : 1935 Sex: MFINAL REPORT TECHNIQUE: Grayscale ultrasound of the right abdomen. INDICATION: Assessfor cholecystitis or choledocholithiasis. COMPARISON: None. FINDINGS: MIDLINE [...] common bile duct was notwell visualized. Signed: Lolita Alfaro MDReport Verified Date/Time: 05/27/2020 11:53:24 Reading Location: [facility] C013Y CT Body Reading Room TROPONIN [id number] 23:43:00 Test Item Value Reference Range Interpretation Comments TROPONIN I (BEAKER) (test code = 0.25 ng/mL 0.00-0.03 [facility]) Troponin I (TnI) levels must [...] failure, acidosis, acute neurological disease, and persistent tachyarrhythmia.Steel Manager ID - DBTROPONIN [id number] 17:25:00 Test Item Value Reference Range Interpretation Comments TROPONIN I (BEAKER) (test code = 0.29 ng/mL 0.00-0.03 [facility]) Troponin I (TnI) levels must [...] failure, acidosis, acute neurological disease, and persistent tachyarrhythmia.Steel Manager ID - DBCOMPREHENSIVE METABOLIC [id number] 14:52:00 Test Item Value Reference Range Interpretation [...] S NOT APPLICABLE FOR DIALYSIS PATIEN TS. Steel Manager ID - MAY CSpecimen slightly ictericPROTHROMBIN TIME/[id number] 14:38:00 Test Item Value Reference Range Interpretation [...] mechanical heart valves.CBC W/PLT COUNT & AUTO [id number] 14:31:00 Test Item Value Reference Range Interpretation [...]
[2023-03-31 03:12] LABS: Hematocrit 30.8 % (39.6-49.0); Lymphocytes % 12.1 % (15.3-44.8); MCV 103.4 fL (80-100); MPV 7.5 fL (7.6-11.3); Platelets 298 thou/uL (152-406); RBC Red Blood Cell Count 2.97 M/uL (4.33-5.43)
[2023-03-31 03:13] LABS: Protime INR 1.1
[2023-03-31 03:43] LABS: Albumin 2.4 g/dL (3.4-5.0); Bilirubin Direct 0.2 mg/dL (0-0.2); Bilirubin Indirect, Calculated 0.3 mg/dL (0.2-0.8); Bilirubin Total 0.5 mg/dL (0.2-1.0); C-Reactive Protein 9.66 mg/L (<3.00); Magnesium 1.7 mg/dL (1.6-2.4); Potassium 2.8 mEq/L (3.5-5.1); Protein, Total 6.6 g/dL (6.4-8.2); Troponin High Sensitivity 50.8 pg/mL (<58.9)
[2023-03-31] MEDS ORDERED: FUROSEMIDE 40 MG TABLET ONE (04:09)
[2023-03-31] MEDS ORDERED: CEFTRIAXONE 1000 MG/VIAL ONE (04:09)
[2023-03-31] MEDS ORDERED: POTASSIUM CL SA 10 MEQ TAB PO ONE ×2 (04:09→10:57)
[2023-03-31] MEDS ORDERED: AZITHROMYCIN 500 MG INJ IVPB ONE (04:10)
[2023-03-31] MEDS ORDERED: NA CHLORIDE 0.9% 250 ML ONE ×2 (04:10→06:37)
[2023-03-31] MEDS ORDERED: KCL 20 MEQ/100 mL IVPB 100 ML IV ONE (04:11)
[2023-03-31] MEDS ORDERED: NA CHLORIDE 0.9% 50 ML ONE (04:11)
--- NOTE | 2023-03-31 04:27 | ER ---
Nurse's Notes [facility] Name: Leanna Judge Age: 87 yrs Sex: Male : 1935 Arrival Date: 03/31/2023 Time: 01:24 Bed 2 Private MD: Diagnosis: Hypokalemia;Other pneumonia, unspecified organism;Acute right lower lung pneumonia, bacterial pneumonia, hypokalemia, generalized weakness, physical deconditioning, fall at home Presentation: 03/31 01:24 Chief complaint: Patient states: STATES HE FELL AND COULDN'T GET UP. GENERALIZED jj7 WEAKNESS EMS states: EMS STATE HE FELL EARLIER OUT OF HIS CHAIR ROUND 234. THEY WERE CALLED FOR A LIFT ASSIST. THEY WERE CALLED OUT AGAIN BECAUSE PT FELL AGAIN WHEN HIS WALKER COLLAPSED. HAVING MILD BACK PAIN. Coronavirus screen: At this time, the client does not indicate any symptoms associated with coronavirus-19. Ebola Screen: No symptoms or risks identified at this time. Initial Sepsis Screen: Does the patient meet any 2 criteria? No. Patient's initial sepsis screen is negative. Does the patient have a suspected source of infection? No. Patient's initial sepsis screen is negative. Risk Assessment: Do you want to hurt yourself or someone else? Patient reports no desire to harm self or others. Onset of symptoms was March 31, 2023. 01:24 Method Of Arrival: EMS: [facility] jj7 01:24 Acuity: GRACIE 3 jj7 Triage Assessment: 01:37 General: Appears in no apparent distress. comfortable, Behavior is calm, cooperative, jj7 appropriate for age. Pain: Complains of pain in back Pain currently is 4 out of 10 on a pain scale. Neuro: No deficits noted. Musculoskeletal: Reports pain in back. 01:37 Cardiovascular: PITTING BILAT LOWER EDEMA. Derm: Wound noted left bicep and left tricep jj7 Wound is SKIN TEAR/ABRASION. Historical: - Allergies: 01:37 No Known Allergies; jj7 - PMHx: 01:37 Atrial fibrillation; Hyperlipidemia; Gout; Myocardial infarction; pancreatic CA jj7 (pancrease/gallbladd); - PSHx: 01:37 pacemaker (ip); pancrease/gallbladder stents; jj7 - Immunization history:: Adult Immunizations not up to date. - Social history:: Smoking status: Patient denies any tobacco usage or history of. Patient/guardian denies using alcohol, street drugs. - Family history:: not pertinent. Screenin:41 [facility] ED Fall Risk Assessment (Adult) History of falling in the last 3 months, jj7 including since admission Yes- fall prone (multiple falls) (3 pts) Confusion or Disorientation No (0 pts) Intoxicated or Sedated No (0 pts) Impaired Gait Yes (1 pt) Mobility Assist Device Used Yes (1 pt) Altered Elimination No (0 pt) Score/Fall Risk Level 3 or more points = High Risk Oriented to surroundings, Maintained a safe environment, Educated pt \T\ family on fall prevention, incl call for assistance when getting out of bed. Abuse screen: Denies threats or abuse. Nutritional screening: No deficits noted. Tuberculosis screening: No symptoms or risk factors identified. Assessment: :41 Reassessment: SEE TRIAGE ASSESSMENT. jj7 Vital Signs: 01:24 BP 134 / 67; Pulse 71; Resp 16; Temp 97.6; Pulse Ox 100% ; Weight 90.72 kg; Height 5 j7 ft. 8 in. ; Pain 4/10; 02:26 BP 155 / 78; Pulse 72; Resp 18; Pulse Ox 100% on R/A; km8 03:00 BP 130 / 62; Pulse 60; Resp 16; Pulse Ox 100% on R/A; km8 03:30 BP 120 / 53; Pulse 60; Resp 16; Pulse Ox 99% on R/A; km8 04:00 BP 119 / 58; Pulse 60; Resp 16; Pulse Ox 100% on R/A; km8 04:30 BP 128 / 64; Pulse 60; Resp 16; Pulse Ox 100% on R/A; km8 01:24 Body Mass Index 30.41 (90.72 kg, 172.72 cm) jj7 01:24 Pain Scale: Adult j7 ED Course: 01:30 Patient arrived in ED. jj7 01:31 Martin Read MD is Attending Physician. sp4 01:37 Triage completed. jj7 01:37 Arm band placed on right wrist. Patient placed in an exam room, on a stretcher, on jj7 quality assurance monitor body, on pulse oximetry. 01:41 Patient has correct armband on for positive identification. Bed in low position. Call jj7 light in reach. Side rails up X2. 01:44 XRAY Chest (1 view) In Process Unspecified. EDMS 02:33 CT Head Brain wo Cont In Process Unspecified. EDMS 02:47 Inserted saline lock: 20 gauge in right forearm, using aseptic technique. Blood jj7 collected. 02:49 Basic Metabolic Panel Sent. jj7 02:49 CBC with Diff Sent. jj7 02:49 Magnesium Sent. jj7 02:49 LFT's Sent. jj7 02:49 NT PRO-BNP Sent. jj7 02:49 PT-INR Sent. jj7 02:49 Troponin HS Sent. jj7 02:49 Blood Culture Adult (2) Sent. jj7 02:49 CRP Sent. jj7 03:05 Dressings: xeroform gauze, sterile gauze and kerlix to left upper arm skin tear. km8 04:22 Procalcitonin Sent. jj7 04:23 Evangelista Graham MD is Hospitalizing Provider. sp4 04:36 Provided Education on: admission process. km8 04:36 No provider procedures requiring assistance completed. km8 04:36 Patient admitted, IV remains in place. km8 04:48 Inserted saline lock: 22 gauge in right antecubital area, using aseptic technique. jj7 Administered Medications: 04:21 Drug: Zithromax IVPB 500 mg IVPB once over 1 hrs; mix in 250 mL NS Route: IVPB; Infused jj7 Over: 1 hrs; Site: left forearm; 05:20 Follow up: IV Status: Infusion continued upon admission km8 04:22 Drug: Potassium Chloride PO 40 mEq PO once Route: PO; jj7 04:35 Follow up: Response: No adverse reaction km8 04:22 Drug: Furosemide PO 40 mg PO once Route: PO; jj7 04:35 Follow up: Response: No adverse reaction km8 04:22 Drug: Rocephin - Rocephin (cefTRIAXone) IVPB 1 grams IVPB once over 30 mins; (mix in 50 jj7 mL NS) Route: IVPB; Infused Over: 30 mins; Site: left forearm; 05:00 Follow up: IV Status: Completed infusion; IV Intake: 100ml km8 05:17 Drug: Potassium Chloride IV 20 mEq IV at calculated rate once; administer over 1-2 km8 hours Route: IV; Rate: calculated rate; Site: right hand; 05:20 Follow up: IV Status: Infusion continued upon admission km8 Medication: 01:41 VIS not applicable for this client. jj7 Intake: 05:00 IV: 100ml; Total: 100ml. km8 Outcome: 04:26 Decision to Hospitalize by Provider. sp4 04:46 Admitted to Med/surg accompanied by nurse, via stretcher, room 429, Report called to ambrosio RAI RN 04:46 Condition: improved 05:20 Patient left the ED. km8 Signatures: Dispatcher [employer] EDMaria G Lawrence RN RN jj7 Martin Read MD MD sp4 Miryam Akers RN RN km8
--- NOTE | 2023-03-31 04:27 | EDPHYS ---
Physician Documentation [facility] Name: Leanna Judge Age: 87 yrs Sex: Male : 1935 Arrival Date: 03/31/2023 Time: 01:24 Bed 2 Private MD: ED Physician Martin Read HPI: 03/31 02:44 This 87 yrs old Male presents to ER via EMS with complaints of Fall at home , sp4 generalized weakness . 02:44 87-year-old male presents with EMS today because he fell at home secondary to sp4 generalized weakness and was not able to get up. Patient states his walker collapsed underneath him he fell onto the floor and could not get up therefore he pushed his alarm button and call EMS to come pick him. Patient has no particular complaints except for generalized weakness on arrival.. Last admission 02/23/2023. Patient was then admitted for generalized weakness and secondary to fall at home as well. Patient is known to have history of atrial fibrillation hyperlipidemia gout AK pancreatic cancer currently in treatment. Patient has oncologist in [place]. Patient's medications include allopurinol 100 mg daily, aspirin 81 mg daily, escitalopram 20 mg daily, furosemide 20 mg daily, gabapentin 100 mg 2 tabs 3 times a day. Nitrostat as needed, nystatin cream as needed for rash. Additional history includes diabetes mellitus type 2, diabetic neuropathy, hypertension, hyperlipidemia, coronary artery disease, history of AK in 2007, history of non-STEMI AK 05/15/2020, history of atrioventricular block, chronic kidney disease, overactive bladder, peripheral neuropathy, melanoma of scalp, with surgical removal of melanoma, anemia secondary to chronic kidney disease, anxiety, pancreatic cancer. History of coronary artery stent in 2007 and 2019, pacemaker 2019, radiofrequency ablation, also right chest wall chemotherapy port.. 02:44 After a fall on the tile floor patient reports skin tear to the left lateral shoulder, sp4 which is more like a rug burn/abrasive type injury. Historical: - Allergies: 01:37 No Known Allergies; jj7 - PMHx: 01:37 Atrial fibrillation; Hyperlipidemia; Gout; Myocardial infarction; pancreatic CA jj7 (pancrease/gallbladd); - PSHx: 01:37 pacemaker (ip); pancrease/gallbladder stents; jj7 - Immunization history:: Adult Immunizations not up to date. - Social history:: Smoking status: Patient denies any tobacco usage or history of. Patient/guardian denies using alcohol, street drugs. - Family history:: not pertinent. ROS: 02:44 Constitutional: Negative for fever, chills, and weight loss, positive for generalized sp4 weakness, fall at home also positive for left shoulder abrasion Eyes: Negative for injury, pain, redness, and discharge, ENT: Negative for injury, pain, and discharge, Neck: Negative for injury, pain, and swelling, Cardiovascular: Negative for chest pain, palpitations, and edema, Respiratory: Negative for shortness of breath, cough, wheezing, and pleuritic chest pain, Abdomen/GI: Negative for abdominal pain, nausea, vomiting, diarrhea, and constipation, Back: Negative for injury and pain, : Negative for injury, bleeding, discharge, and swelling, MS/Extremity: Negative for injury and deformity, Skin: Negative for injury, rash, and discoloration, Neuro: Negative for headache, weakness, numbness, tingling, and seizure, Allergy/Immunology: Negative for hives, rash, and allergies Endocrine: Negative for neck swelling, polydipsia, polyuria, polyphagia, and weight changes Hematologic/Lymphatic: Negative for swollen nodes, abnormal bleeding, and unusual bruising Exam: 02:44 Constitutional: This is a well developed, well nourished patient who is awake, alert, sp4 and in no acute distress. Head/Face: Normocephalic, atraumatic. Eyes: Pupils equal round and reactive to light, extra-ocular motions intact. Lids and lashes normal. Conjunctiva and sclera are not injected. Cornea within normal limits. Periorbital areas with no swelling, redness, or edema. ENT: Nares patent. No nasal discharge, no septal abnormalities noted. Tympanic membranes are normal and external auditory canals are clear. Oropharynx with no redness, swelling, or masses, exudates, or evidence of obstruction, uvula midline. Mucous membranes moist. Neck: Trachea midline, no thyromegaly or masses palpated, and no cervical lymphadenopathy. Supple, full range of motion without nuchal rigidity, or vertebral point tenderness. Chest/axilla: Normal chest wall appearance and motion. Nontender with no deformity. No lesions are appreciated. Cardiovascular: Regular rate and rhythm with a normal S1 and S2. No gallops, murmurs, or rubs. Normal PMI, no JVD. No pulse deficits. Respiratory: Lungs have equal breath sounds bilaterally, clear to auscultation and percussion. No rales, rhonchi or wheezes noted. No increased work of breathing, no retractions or nasal flaring. Abdomen/GI: Soft, non-tender, with normal bowel sounds. No distension or tympany. No guarding or rebound. No evidence of tenderness throughout. Back: No spinal tenderness. No costovertebral tenderness. Male : Normal genitalia with no discharge or lesions. Skin: Warm, dry with normal turgor. Normal color with no rashes, no lesions, and no evidence of cellulitis. MS/ Extremity: Pulses equal, no cyanosis. Neurovascular intact. Full, normal range of motion. Neuro: Awake and alert, GCS 15, oriented to person, place, time, and situation. Cranial nerves II-XII grossly intact. Motor strength 5/5 in all extremities. Sensory grossly intact. Psych: Awake, alert, with orientation to person, place and time. Behavior, mood, and affect are within normal limits 04:21 ECG was reviewed by the Attending Physician. An EKG 0 2:54 AM paced rhythm at the sp4 rate of 60, ventricular paced rhythm with a rate of 60 Vital Signs: 01:24 BP 134 / 67; Pulse 71; Resp 16; Temp 97.6; Pulse Ox 100% ; Weight 90.72 kg; Height 5 jj7 ft. 8 in. ; Pain 4/10; 02:26 BP 155 / 78; Pulse 72; Resp 18; Pulse Ox 100% on R/A; km8 03:00 BP 130 / 62; Pulse 60; Resp 16; Pulse Ox 100% on R/A; km8 03:30 BP 120 / 53; Pulse 60; Resp 16; Pulse Ox 99% on R/A; km8 04:00 BP 119 / 58; Pulse 60; Resp 16; Pulse Ox 100% on R/A; km8 04:30 BP 128 / 64; Pulse 60; Resp 16; Pulse Ox 100% on R/A; km8 01:24 Body Mass Index 30.41 (90.72 kg, 172.72 cm) [facility] 01:24 Pain Scale: Adult [facility] MDM: 01:32 Patient medically screened. sp4 04:26 Differential Diagnosis altered mental status, sepsis, flu. Data reviewed: vital signs, sp4 nurses notes, EMS record, old medical records, lab test result(s), EKG, radiologic studies, CT scan, plain films. Consideration of Admission/Observation Patient was admitted/placed on observation. Escalation of care including admission/observation considered. Management of patient was discussed with the following: Middle [employer] Teacher: PMD Dr. Graham . ED course: X-ray has revealed signs of right lower lung consolidation possible bacterial pneumonia. Patient started on Rocephin and Zithromax IV. Also patient has signs of volume overload bilateral lower extremity edema with pitting and signs of mild heart failure. Patient was administered p.o. Lasix and for hypokalemia patient was administered p.o. and IV potassium. At this time patient warrants admission for hypokalemia and acute onset the right lower lung pneumonia. 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 04:54 ED course: X-ray CT report on Mr. Judge at 4:32 AM reveals no acute intracranial sp4 findings. There is no hemorrhage mass effect or midline shift. Small old lacunar infarcts in the bilateral caudate heads, no hydrocephalus mild to moderate bifrontal cerebral atrophy. Intact calvarium. Orbits and globes unremarkable. Paranasal sinuses are clear. Mastoid air cells clear. . 03/31 01:31 Order name: Basic Metabolic Panel; Complete Time: 03:48 sp4 03/31 01:31 Order name: CBC with Diff; Complete Time: 03:31 sp4 03/31 01:31 Order name: LFT's; Complete Time: 03:48 sp4 03/31 01:31 Order name: Magnesium; Complete Time: 03:48 sp4 03/31 01:31 Order name: NT PRO-BNP; Complete Time: 03:48 sp4 03/31 01:31 Order name: PT-INR; Complete Time: 03:31 sp4 03/31 01:31 Order name: Troponin HS; Complete Time: 03:48 sp4 03/31 01:31 Order name: Blood Culture Adult (2) sp4 03/31 01:32 Order name: CRP; Complete Time: 03:48 sp4 03/31 01:32 Order name: Urinalysis W/Microscopic sp4 03/31 03:51 Order name: Procalcitonin sp4 03/31 01:31 Order name: XRAY Chest (1 view) sp4 03/31 01:32 Order name: CT Head Brain wo Cont sp4 03/31 01:31 Order name: EKG; Complete Time: 01:32 sp4 03/31 01:31 Order name: Cardiac monitoring; Complete Time: 02:48 sp4 03/31 01:31 Order name: EKG - Nurse/Tech; Complete Time: 02:48 sp4 03/31 01:31 Order name: IV Saline Lock; Complete Time: 02:48 sp4 03/31 01:31 Order name: Labs collected and sent; Complete Time: 02:49 sp4 03/31 01:31 Order name: O2 Per Protocol; Complete Time: 02:49 4 03/31 01:31 Order name: O2 Sat Monitoring; Complete Time: 02:49 4 03/31 03:05 Order name: Wound Care: dressing to shoulder abrasion; Complete Time: 03:07 4 EC:21 Rate is 60 beats/min. Rhythm is regular, Paced. Clinical impression: No evidence of sp4 ischemia. Administered Medications: 04:21 Drug: Zithromax IVPB 500 mg IVPB once over 1 hrs; mix in 250 mL NS Route: IVPB; Infused jj7 Over: 1 hrs; Site: left forearm; 05:20 Follow up: IV Status: Infusion continued upon admission [facility] 04:22 Drug: Potassium Chloride PO 40 mEq PO once Route: PO; jj7 04:35 Follow up: Response: No adverse reaction 8 04:22 Drug: Furosemide PO 40 mg PO once Route: PO; jj7 04:35 Follow up: Response: No adverse reaction [facility] 04:22 Drug: Rocephin - Rocephin (cefTRIAXone) IVPB 1 grams IVPB once over 30 mins; (mix in 50 jj7 mL NS) Route: IVPB; Infused Over: 30 mins; Site: left forearm; 05:00 Follow up: IV Status: Completed infusion; IV Intake: 100ml [facility] 05:17 Drug: Potassium Chloride IV 20 mEq IV at calculated rate once; administer over 1-2 km8 hours Route: IV; Rate: calculated rate; Site: right hand; 05:20 Follow up: IV Status: Infusion continued upon admission 8 Disposition Summary: 03/31/23 04:26 Hospitalization Ordered Notes: Hospitalization Status: Inpatient Admission sp4 Provider: Evangelista Graham sp4 Location: Telemetry/MedSurg (Inpatient) sp4 Condition: Stable sp4 Problem: new sp4 Symptoms: have improved sp4 Bed/Room Type: Standard sp4 Room Assignment: 429(03/31/23 04:31) mw Diagnosis - Hypokalemia sp4 - Other pneumonia, unspecified organism sp4 - Acute right lower lung pneumonia, bacterial pneumonia, hypokalemia, generalized sp4 weakness, physical deconditioning, fall at home Forms: - Medication Reconciliation Form sp4 - SBAR form sp4 - Leadership Thank You Letter sp4 Signatures: Dispatcher [employer] EDMS Emma Forte RN RN Maria G Pace RN RN jj7 Martin Read MD MD sp4 Miryam Akers RN RN km8 Corrections: (The following items were deleted from the chart) 04:31 04:26 sp4 mw
[2023-03-31 06:15] VITALS: BMI 29.5
[2023-03-31] MEDS ORDERED: ALBUTEROL 2.5 MG/3 ML NEB SOL NEB PRN ×2 (06:29→12:00)
[2023-03-31] MEDS ORDERED: ACETAMINOPHEN 325 MG TABLET PO PRN (06:29)
[2023-03-31] MEDS ORDERED: ONDANSETRON 4 MG/2 ML VIAL IV PRN (06:29)
[2023-03-31] MEDS ORDERED: ZOLPIDEM TARTRATE 5 MG TABLET PO PRN (06:29)
[2023-03-31] MEDS: INSULIN REGULAR (HUMAN) 100 UNIT/ML SQ SCH ×4 (07:30→21:00)
[2023-03-31] MEDS ORDERED: INFLUENZA VACCINE (for 6+ mo) 0.5 ML DOSE IMVAC ONE (08:00)
[2023-03-31] MEDS ORDERED: PNEUMOCOCCAL VACCINE 0.5 ML IMVAC ONE (08:00)
[2023-03-31 09:30] LABS: Absolute Lymphocytes (CBC) 0.9 K/uL (0.7-4.9); Lymphocytes % 13.4 % (15.3-44.8); MCV 103.7 fL (80-100); MPV 7.1 fL (7.6-11.3); Platelets 244 thou/uL (152-406); RBC Red Blood Cell Count 2.99 M/uL (4.33-5.43)
[2023-03-31 09:55] LABS: Magnesium 1.5 mg/dL (1.6-2.4); Potassium 3.1 mEq/L (3.5-5.1)
[2023-03-31 10:02] LABS: Thyroid Stimulating Hormone 4.02 uIU/mL (0.358-3.740)
[2023-03-31] MEDS: ESCITALOPRAM 20 MG TAB PO SCH (10:02)
[2023-03-31] MEDS: ASPIRIN EC 81 MG TAB PO SCH (10:02)
[2023-03-31] MEDS: ENOXAPARIN 40 MG/0.4 ML SQ SCH (10:03)
[2023-03-31] MEDS: CEFTRIAXONE 1,000 MG in NA CHLORIDE 0.9% 50 ML IVPB SCH (10:05)
[2023-03-31] MEDS: allopurinoL 100 MG TAB PO SCH (10:06)
[2023-03-31] MEDS: AZITHROMYCIN IV 500 MG in NA CHLORIDE 0.9% 250 ML IVPB SCH (10:38)
[2023-03-31] MEDS ORDERED: Magnesium Sulfate 2gm IVPB 2 G/50 ML BAG IV ONE (10:56)
--- NOTE | 2023-03-31 11:59 | RAD REPORT ---
EXAM DESCRIPTION: USExtrem Venous W Compress Bil03/31/2023 11:42 am CLINICAL HISTORY: Leg edema COMPARISON: November 2022 FINDINGS: The common femoral, superficial femoral, greater saphenous, popliteal and posterior tibial veins bilaterally are compressible and demonstrate augmentation. Doppler demonstrates good flow. 2.6 centimeter right Mendiola's cyst Grayscale, color and spectral analysis performed on all vessels IMPRESSION: No evidence of deep venous thrombosis involving either lower extremity. 2.6 centimeter right Mendiola's cyst
[2023-03-31 19:42] LABS: Magnesium 2.2 mg/dL (1.6-2.4); Potassium 3.3 mEq/L (3.5-5.1)
[2023-03-31] MEDS ORDERED: POTASSIUM 25 MEQ EFFERV TAB PO ONE (20:45)
--- NOTE | 2023-03-31 21:06 | HP ---
Date of Admission: 03/31/2023 Chief Complaint: Fall and weakness. History Of Present Illness: This is an 87-year-old male patient who lives at home, fell out of his c hair as he was trying to get up and he called ambulance and EMS came and helped him to get up and put him back in the chair and they left and after that when he was trying to get up and walk, he lost ba twan as he was using his walker and reports that the walker kind of tilted and moved away from him a nd he fell down. This time he called ambulance again and ambulance brought him to emergency room. A fter he was evaluated, he was admitted to the hospital. Allergies: NO KNOWN ALLERGIES. Medications: Allopurinol, aspirin, escitalopram, furosemide, gabapentin, and Nitrostat p.r.n. Review of Systems: Constitutional: Significant for generalized weakness. Cardiovascular: Bilateral leg swelling. All other systems reviewed and negative. Past Medical History: Significant for type 2 diabetes mellitus, hypertension, mixed hyperlipidemia, coronary artery disease with prior history of myocardial infarction in 2007, non-STEMI on April, AV block, chronic kidney disease, overactive bladder, varicose veins of lower extremity, oste oarthritis at multiple sites, gout, melanoma, anemia due to chronic kidney disease, anxiety. Past Surgical History: Coronary artery angioplasty with stent placement in 2007 and May 15 0, pacemaker placement June 01, 2019. Family History: Brother had heart disease and throat cancer. Social History: Prior history of smoking, not at present time. Use of alcohol negative. Physical Examination: Vital Signs: This morning temperature 97.2, pulse 61, respiratory rate 18, blood pressure 129/55, ox ygen saturation 99%. Height 5 feet 9 inches, weight 200 pounds. General: Awake, alert, oriented, not in distress. HEENT: Head atraumatic, normocephalic. Conjunctivae nonerythematous. Sclerae white. Mouth, no thr ush or edema noted. Ears/Nose, no mass, lesion, discharge noted. Neck: Supple. No JVD, lymph nodes, bruit, thyromegaly noted. Lungs: Bilateral good equal air entry. Clear to auscultation. No rhonchi. No rales. Heart: Normal heart sounds, no murmur or gallop. Abdomen: Soft, bowel sounds normal. No guarding, rigidity, tenderness, mass, hepatosplenomegaly, dis tention, or bruit noted. Extremities: Bilateral grade 1 to grade 2 pedal edema with redness and warmness of skin involving en tire lower extremity between knee and ankle on both legs. No open wound. Skin: No rash, ulcer, cellulitis. Lymphatics: No lymph node enlargement in neck, supraclavicular, infraclavicular region. Neuro: No focal neurological deficit. Chest: Unremarkable. External Genitalia: Deferred. Rectal: Deferred. Labs: Chest x-ray, no acute intrathoracic changes. CAT scan of the head, no acute intracranial hernández ges. WBC 8, hemoglobin 10.3, platelets 298. Sodium 140, potassium 2.8, chloride 110, bicarb 26, BUN 12, creatinine 1.13, glucose 102. Liver function tests unremarkable. Procalcitonin less than 0.07. Troponin 50.8. Impression: 1.Bilateral leg cellulitis. 2.Generalized weakness. 3.Debility. 4.Hypokalemia. 5.Anemia due to chronic kidney disease. 6.Chronic kidney disease stage 3. 7.Type 2 diabetes mellitus. 8.Hypertension. 9.Mixed hyperlipidemia. 10.Coronary artery disease. 11.Peripheral neuropathy. 12.Osteoarthritis, multiple sites. 13.Anxiety. Plan: The patient will be admitted to hospital for further evaluation and management. He is appropr iate for inpatient and is expected to spend 2 midnights in hospital. He received IV antibiotic, Roce phin and Zithromax. We will continue that. We will go ahead and get a venous Doppler of lower extre mities. Echo with Doppler to evaluate left ventricular ejection fraction and Lovenox for DVT prophyl axis will be given. Physical Therapy was consulted to help ambulate the patient. Continue home medi cations per order. We will replace electrolytes per protocol. I will see him tomorrow for followup. JEFF/MODL Voice ID: [id number]
[2023-04-01 07:12] LABS: Potassium 3.4 mEq/L (3.5-5.1)
[2023-04-01] MEDS: INSULIN REGULAR (HUMAN) 100 UNIT/ML SQ SCH (07:30)
[2023-04-01] MEDS: CEFTRIAXONE 1,000 MG in NA CHLORIDE 0.9% 50 ML IVPB SCH (09:00)
[2023-04-01] MEDS: ENOXAPARIN 40 MG/0.4 ML SQ SCH (09:00)
[2023-04-01] MEDS: AZITHROMYCIN IV 500 MG in NA CHLORIDE 0.9% 250 ML IVPB SCH (09:00)
[2023-04-01] MEDS: allopurinoL 100 MG TAB PO SCH (10:41)
[2023-04-01] MEDS: ESCITALOPRAM 20 MG TAB PO SCH (10:41)
[2023-04-01] MEDS: ASPIRIN EC 81 MG TAB PO SCH (10:41)
[2023-04-01 11:35] VITALS: BP 121/56; TEMP 98.5
[2023-04-01 11:48] VITALS: O2SAT 95
--- NOTE | 2023-04-01 14:20 | RAD REPORT ---
EXAM DESCRIPTION: CT - Head Brain Wo Cont - 03/31/2023 6:40 am CLINICAL HISTORY: Gen weakness COMPARISON: 03/14/2023. TECHNIQUE: CT HEAD WITHOUT IV CONTRAST on 03/31/2023 1:32 AM STEEL HANDLER This exam was performed according to our departmental dose-optimization program, which includes autom ated exposure control, adjustment of the mA and/or kV according to patient size and/or use of iterati ve reconstruction technique. FINDINGS: There is no acute hemorrhage, mass effect or midline shift. There are small old lacunar in farcts in the bilateral caudate heads. There is no hydrocephalus. There is mild to moderate bifrontal cerebral atrophy. The calvarium is intact. Orbits and globes are unremarkable. The paranasal sinuses are clear. Mastoid air cells are clear. IMPRESSION: No acute intracranial findings. Electronically signed by: Antonio Sosa MD 03/31/2023 04:32 AM STEEL HANDLER Due to temporary technical issues with the PACS/Fluency reporting system, reports are being signed by the in house radiologists without review as a courtesy to insure prompt reporting. The interpreting radiologist is fully responsible for the content of the report.
--- NOTE | 2023-04-01 15:59 | RAD REPORT ---
EXAM DESCRIPTION: RAD - Chest Single View - 03/31/2023 1:42 am CLINICAL HISTORY: CHEST PAIN COMPARISON: None. TECHNIQUE: XR CHEST 1 VIEW 03/31/2023 1:31 AM EKG MANAGER FINDINGS: The heart is mildly enlarged. Left lower chamber pacemaker is present. Lungs are clear wit hout consolidation, atelectasis, mass or edema. There is no pleural effusion. There is no pneumothora x. There are no acute osseous findings. Right chest port catheter tip is in the lower SVC. IMPRESSION: Clear lungs. Electronically signed by: Antonio Sosa MD 03/31/2023 04:29 AM EKG MANAGER Due to temporary technical issues with the PACS/Fluency reporting system, reports are being signed by the in house radiologists without review as a courtesy to insure prompt reporting. The interpreting radiologist is fully responsible for the content of the report.
--- NOTE | 2023-04-01 22:37 | DS ---
Date of Discharge: 04/01/2023 The patient was seen this morning for followup. Disposition: Discharged to go home. Physical Examination: HEENT: Unremarkable. Lungs: Clear to auscultation. Heart: Sounds normal. Abdomen: Soft. Bowel sounds normal. No guarding, rigidity, tenderness, or distention. Extremities: No leg edema. Discharge Medications And Instructions: Continue all prior home medication. Take following new medi cation and prescription was sent to his pharmacy: 1.Potassium chloride 20 mEq take 1 tablet by mouth daily for 1 week. 2.Magnesium oxide 400 mg take 1 tablet by mouth daily for 1 week. 3.Augmentin 875 mg take 1 tablet by mouth 2 times a day with food for 1 week. 4.Follow up at my office next week and follow up at [facility] in 2 weeks. Laboratory Data: Upon admission, white count was 8, hemoglobin 10.3, platelets 298 and yesterday whi te count 6.5, hemoglobin 10.4, platelets 244. Chemistry today; sodium 143, potassium 3.4, chloride 1 12, bicarb 28, BUN 10, creatinine 0.86, glucose 89. Upon admission, sodium 140, potassium 2.8, chlor saman 110, bicarb 26, BUN 12, creatinine 1.13, glucose 102. Liver function tests unremarkable. Tropon in 50.8. Procalcitonin 0.07. TSH 4.020. Hospital Course: This is an 87-year-old male patient who came into emergency room with feeling weak and history of fall at home. Please see dictated H and P for more information. After patient was ev aluated in the ER, was admitted to the hospital and the patient had bilateral leg cellulitis and gene ralized weakness, debility and hypokalemia. His potassium was corrected with electrolyte replacement protocol. Physical therapy was consulted. He was started on IV antibiotics and overall his conditi on has improved and today he was discharged to go home in stable and improved condition. Final Diagnoses: 1.Bilateral leg cellulitis. 2.Generalized weakness. 3.Debility. 4.Hypokalemia. 5.Anemia due to chronic kidney disease. 6.Chronic kidney disease, stage 3. 7.Type 2 diabetes mellitus. 8.Hypertension. 9.Mixed hyperlipidemia. 10.Coronary artery disease. 11.Peripheral neuropathy. 12.Osteoarthritis, multiple sites. 13.Anxiety. JEFF/MODL Voice ID: [id number] Report ID: [id number]
--- NOTE | 2023-04-02 11:06 | ECHO ---
HEIGHT: 5 ft 9 in WEIGHT: 200 lb 0 oz DATE OF STUDY: 04/01/[address]: Evangelista Graham MD 2-DIMENSIONAL: YES M.MODE: YES DOPPLER: YES COLOR FLOW: YES TDS: PORTABLE: YES DEFINITY: BUBBLE STUDY: DIAGNOSIS: EVALUATE LEFT VENTRICULAR EJECTION FRACTION CARDIAC HISTORY: CATHERIZATION: NO SURGERY: NO PROSTHETIC VALVE: NO PACEMAKER: NO MEASUREMENTS (cm) DIASTOLIC (NORMALS) SYSTOLIC (NORMALS) IVSd 1.2 (0.6-1.2) LA Diam 2.2 (1.9-4.0) LVEF 54% LVIDd 4.5 (3.5-5.7) LVIDs 3.2 (2.0-3.5) %FS 28% LVPWd 1.2 (0.6-1.2) Ao Diam 2.8 (2.0-3.7) 2 DIMENSIONAL ASSESSMENT: RIGHT ATRIUM: NORMAL LEFT ATRIUM: NORMAL RIGHT VENTRICLE: NORMAL LEFT VENTRICLE: NORMAL TRICUSPID VALVE: MILD TRICUSPID REGURGITATION MITRAL VALVE: MITRAL ANNULAR CALCIFICATION PULMONIC VALVE: NORMAL AORTIC VALVE: NORMAL PERICARDIAL EFFUSION: NONE AORTIC ROOT: NORMAL LEFT VENTRICULAR WALL MOTION: NORMAL DOPPLER/COLOR FLOW: SEE BELOW COMMENTS: 1. NORMAL LEFT VENTRICULAR EJECTION FRACTION 55-60% WITH NORMAL WALL MOTION 2. GRADE I DIASTOLIC DYSFUNCTION 3. MILD TRICUSPID REGURGITATION 4. MILD MITRAL REGURGITATION TECHNOLOGIST: NICK THOMSON
== END 2023-04-01 12:28 | disposition home health service (06) | DRG 602 ==
LOC: ER 01:24 → ERHOLD 03:52 → 4TH 04:38
PROVIDERS: ADMIT Internal Medicine; ATTEND Internal Medicine
DX: L03.116 Cellulitis of left lower limb (principal); J15.9 Unspecified bacterial pneumonia; E87.6 Hypokalemia; L03.115 Cellulitis of right lower limb; I12.9 Hypertensive chronic kidney disease with stage 1 through stage 4 chronic kidney disease, or unspecified chronic kidney disease; N18.30 Chronic kidney disease, stage 3 unspecified; E11.22 Type 2 diabetes mellitus with diabetic chronic kidney disease; E11.42 Type 2 diabetes mellitus with diabetic polyneuropathy; D63.1 Anemia in chronic kidney disease; M10.9 Gout, unspecified; I48.91 Unspecified atrial fibrillation; F41.9 Anxiety disorder, unspecified; M19.09 Primary osteoarthritis, other specified site; E78.2 Mixed hyperlipidemia; S41.012A Laceration without foreign body of left shoulder, initial encounter; I25.10 Atherosclerotic heart disease of native coronary artery without angina pectoris; I25.2 Old myocardial infarction; Z95.0 Presence of cardiac pacemaker; Z95.5 Presence of coronary angioplasty implant and graft; Z85.07 Personal history of malignant neoplasm of pancreas; Z92.21 Personal history of antineoplastic chemotherapy; Z79.82 Long term (current) use of aspirin; Z79.899 Other long term (current) drug therapy; W07.XXXA Fall from chair, initial encounter; Y99.9 Unspecified external cause status; Y93.89 Activity, other specified; Y92.019 Unspecified place in single-family (private) house as the place of occurrence of the external cause
CPT/HCPCS: 36415; 70450; 71045; 80048; 80076; 82947; 83735; 83880; 84132; 84145; 84439; 84443; 84484; 85025; 85610; 86140; 87040; 93005; 93306; 93970; 96365; 96375; 97116; 97161; 97530; 99285; J0696; J1650; J2405; J3475; J3480; J7050